=== PATIENT | male | born 1940 | race American Indian/Alaskan Native ===

== ENCOUNTER 2016-07-24 19:12 | Inpatient (IN) | payer MEDICARE, BC ==
[2016-07-24 19:13] VITALS: BMI 21.7
--- NOTE | 2016-07-24 20:19 | ED PDOC ---
Arrival/HPI - General Time Seen by Provider: 07/24/16 19:27 Historian: Patient - History of Present Illness Narrative History of Present Illness (Text): 07/24/16 19:40 A 75 year old male, whose past medical history includes diabetes, hypertension, hyperlipidemia, ESRD, Renal cancer with prtial nephrectomy, presents to the emergency department complaining of feeling weak and hot since earlier today. Patient denies any headache, neck pain, back pain, chest pain, shortness of breath, history of recent cough, abdominal pain, or any other complaints at this time. Patient does mention he is scheduled for hemodialysis tomorrow. PMD: Dr. Brambila Time/Duration: 4-6 hours Symptom Onset: Sudden Symptom Course: Unchanged Quality: Other Activities at Onset: Rest Context: Home Past Medical History - Provider Review Nursing Documentation Reviewed: Yes - Infectious Disease Hx of Infectious Diseases: None - Tetanus Immunization Tetanus Immunization: Unknown - Cardiac Hx Cardiac Disorders: Yes Hx Hypertension: Yes - Pulmonary Hx Respiratory Disorders: No Hx Chronic Obstructive Pulmonary Disease (COPD): No - Neurological Hx Neurological Disorder: No Hx Alzheimer's Disease: No HX Cerebrovascular Accident: No Hx Dementia: No Hx Dizziness: No Hx Meningitis: No Hx Migraine: No Hx Parkinson's Disease: No Hx Seizures: No Hx Transient Ischemic Attacks (TIA): No - HEENT Hx HEENT Disorder: No (WEARS RX GLASSES) Hx Blind: No Hx Cataracts: No Hx Deafness: No Hx Difficulty Chewing: No Hx Epistaxis: No Hx Glaucoma: No Hx Macular Degeneration: No - Renal Hx Renal Disorder: Yes Date of Last Dialysis Treatment: 02/19/16 Hx Renal Failure: Yes (HD (//Sun)) - Endocrine/Metabolic Hx Endocrine Disorders: Yes Hx Diabetes Mellitus Type 1: No Hx Diabetes Mellitus Type 2: Yes Hx Hypothyroidism: No - Hematological/Oncological Hx Blood Disorders: Yes - Integumentary Hx Dermatological Disorder: Yes (Bullous pemphigoid) Hx Basal Cell Carcinoma: No Hx Eczema: No Hx Melanoma: No Hx Psoriasis: No Hx Squamous Cell Carcinoma: No - Musculoskeletal/Rheumatological Hx Musculoskeletal Disorders: No Hx Falls: No - Gastrointestinal Hx Gastrointestinal Disorders: No Hx Colostomy: No Hx Crohn's Disease: No Hx Diverticulitis: No Hx Gall Bladder Disease: No Hx Gastroesophageal Reflux: No Hx Gastrointestinal Ulcer: No Hx Ileostomy: No Hx Liver Failure: No Hx Pancreatitis: No HX Swallowing Problems: No - Genitourinary/Gynecological Hx Genitourinary Disorders: No - Psychiatric Hx Psychophysiologic Disorder: No Hx Emotional Abuse: No Hx Physical Abuse: No Hx Substance Use: No - Surgical History Hx Amputation: No Hx Appendectomy: No Hx Cardiac Catheterization: No Hx Cholecystectomy: No Hx Coronary Stent: No Hx Gastric Bypass Surgery: No Hx Hysterectomy: No Hx Joint Replacement: No Hx Kidney Transplant: No Hx Liver Transplant: No Hx Mastectomy: No Hx Musculoskeletal Surgery: No Hx Open Heart Surgery: No Hx Orthopedic Surgery: No Hx Splenectomy: No Hx Valve Replacement: No - Anesthesia Hx Anesthesia Reactions: No Hx Malignant Hyperthermia: No - Suicidal Assessment Feels Threatened In Home Enviroment: No Family/Social History - Physician Review Nursing Documentation Reviewed: Yes Family/Social History: No Known Family HX Smoking Status: Never Smoked Hx Alcohol Use: No (H/O OF DRINKING WEEKENDS BEER-"NONE X 20 YRS") Hx Substance Use: No Hx Substance Use Treatment: No Allergies/Home Meds Allergies/Adverse Reactions: Allergies No Known Allergies Allergy (Verified 07/24/16 21:08) Home Medications: Home Meds Medication Instructions Recorded Confirmed Amlodipine/Valsartan [Exforge 1 tab PO DAILY 09/17/11 05/25/16 10-320 mg Tablet] Aspirin [Ecotrin] 325 mg PO DAILY 08/25/15 05/25/16 Gabapentin [Neurontin] 100 mg PO Q8 08/25/15 05/25/16 Pentoxifylline 400 mg PO Q8 08/25/15 05/25/16 Pregabalin [Lyrica] 50 mg PO BID 08/25/15 05/25/16 Omeprazole [Omeprazole] 20 mg PO DAILY 02/19/16 05/25/16 Review of Systems - Physician Review All systems were reviewed & negative as marked: Yes - Review of Systems Constitutional: Fatigue, Other (feeling hot) Eyes: Normal ENT: Normal Respiratory: absent: SOB, Cough Cardiovascular: absent: Chest Pain Gastrointestinal: absent: Abdominal Pain Genitourinary Male: Normal Musculoskeletal: absent: Back Pain, Neck Pain Skin: Normal Neurological: absent: Headache Endocrine: Normal Hemo/Lymphatic: Normal Psychiatric: Normal Physical Exam Vital Signs Reviewed: Yes Vital Signs Temp Pulse Resp BP Pulse Ox 07/25/16 00:59 98.6 F 64 15 138/54 L 100 07/24/16 21:18 65 16 125/54 L 99 07/24/16 21:07 102.9 F H 07/24/16 19:40 102.0 F H 66 16 131/57 L 95 Temperature: Febrile Blood Pressure: Hypotensive Pulse: Regular Respiratory Rate: Normal Appearance: Positive for: Well-Appearing, Non-Toxic, Comfortable Pain Distress: None Mental Status: Positive for: Alert and Oriented X 3 - Systems Exam Head: Present: Atraumatic, Normocephalic Pupils: Present: PERRL Extroacular Muscles: Present: EOMI Conjunctiva: Present: Normal Mouth: Present: Moist Mucous Membranes Neck: Present: Normal Range of Motion Respiratory/Chest: Present: Clear to Auscultation, Good Air Exchange. No: Respiratory Distress, Accessory Muscle Use Cardiovascular: Present: Regular Rate and Rhythm, Normal S1, S2. No: Murmurs Abdomen: Present: Normal Bowel Sounds. No: Tenderness, Distention, Peritoneal Signs Back: Present: Normal Inspection Upper Extremity: Present: Normal Inspection. No: Cyanosis, Edema Lower Extremity: Present: Normal Inspection. No: Edema Neurological: Present: GCS=15, CN II-XII Intact, Speech Normal Skin: Present: Warm, Dry, Normal Color. No: Rashes Psychiatric: Present: Alert, Oriented x 3, Normal Insight, Normal Concentration Medical Decision Making ED Course and Treatment: 07/24/16 19:40 Impression: A 75 year old male with weakness and a subjective fever. Differential Diagnosis include but are not limited to: Sepsis Plan: -- EKG -- Chest X-ray -- Labs -- Urinalysis -- Reassess and disposition Prior Visits: Notes and results from previous visits were reviewed. The patient last presented to the emergency department on 05/25/16 for evaluation of generalized weakness. Progress Notes: 07/24/16 23:03 Chest X-ray interpreted by me: No acute processes. 07/24/16 23:07 EKG interpreted by me: NSR @ 66 bpm. No acute changes. 07/24/16 23:17 Case discussed with who accepts patient under his service with and Dr. Tavera on consult. Advises to administer dose of Vancomycin and Rocephin in emergency department. - Lab Interpretations Lab Results: 07/24/16 20:30 07/24/16 20:30 Lab Results 07/24/16 20:39: pO2 36, VBG pH 7.26 L, VBG pCO2 67.0 H*, VBG HCO3 30.1 H, VBG Total CO2 32.2 H, VBG O2 Sat (Calc) 60.0, VBG Base Excess 1.2, VBG Potassium 5.2 , Sodium 138.0, Chloride 99.0, Glucose 108, Lactate 2.0, FiO2 21.0, Venous Blood Potassium 5.2 07/24/16 20:30: WBC 5.8 D, RBC 4.28, Hgb 13.1 L, Hct 38.9 L, MCV 90.9, MCH 30.6 , MCHC 33.7, RDW 14.6 H, Plt Count 113 L, Gran % 83.4 H, Lymph % (Auto) 6.4 L, [place] % (Auto) 8.5 H, Eos % (Auto) 1.4 L, Baso % (Auto) 0.3, Gran # 4.83, Lymph # 0.4 L, [place] # 0.5, Eos # 0.1, Baso # 0.02, PT 12.5 H, INR 1.16 H, APTT 39.8 H , Sodium 139, Chloride 94 L, Potassium 5.1 H, Carbon Dioxide 26, Anion Gap 24 H , BUN 70 H, Creatinine 8.7 H*, Est GFR ( Amer) 7, Est GFR (Non-Af Amer) 6 , Random Glucose 109, Calcium 8.3 L, Phosphorus 8.5 H, Magnesium 2.7 H, Total Bilirubin 0.7, AST 22, ALT 18, Alkaline Phosphatase 90, Total Protein 9.3 H, Albumin 4.3, Globulin 4.9, Albumin/Globulin Ratio 0.9 L I have reviewed the lab results: Yes - RAD Interpretation Radiology Orders: 07/24/16 20:05 CHEST PORTABLE [RAD] Stat - Medication Orders Current Medication Orders: Meropenem 500 mg/ Sodium (Chloride) 100 mls @ 100 mls/hr IVPB Q12 [place] PRN Reason: Protocol Stop: 08/01/16 10:01 Vancomycin HCl (Vancomycin 1gm) 250 mls @ 167 mls/hr IVPB STAT STA PRN Reason: Protocol Stop: 07/25/16 07:21 Discontinued Medications Acetaminophen (Tylenol 325mg Tab) 650 mg PO STAT STA Stop: 07/24/16 20:08 Last Admin: 07/24/16 21:07 Dose: 650 MG MAR Pain/Vitals Document 07/24/16 21:07 HI (Rec: 07/24/16 21:07 HI [id number]) Pain Reassessment Is This A Pain ReAssessment? No Vitals Temperature (97.6 F-99.6 F) 102.9 F Ceftriaxone Sodium (Rocephin 1 Gram Ivpb) 100 mls @ 200 mls/hr IV ONCE STA PRN Reason: Protocol Stop: 07/24/16 23:48 Last Admin: 07/25/16 00:48 Dose: 200 MLS/HR eMAR Start Stop Document 07/25/16 00:48 MAURICIO (Rec: 07/25/16 00:48 [id number]) Intravenous Solution Start Date 07/25/16 Start Time 00:20 End Date 07/25/16 End time 00:48 Total Infusion Time 28 Vancomycin HCl (Vancomycin 500mg In Ns) 100 mls @ 200 mls/hr IVPB STAT STA PRN Reason: Protocol Stop: 07/24/16 23:51 Last Admin: 07/25/16 00:48 Dose: 200 MLS/HR eMAR Start Stop Document 07/25/16 00:48 MAURICIO (Rec: 07/25/16 00:48 [facility]ICIO [id number]) Intravenous Solution Start Date 07/25/16 Start Time 00:48 - Scribe Statement The provider has reviewed the documentation as recorded by the Seraibjitendra Bernstein Provider Scribe Attestation: All medical record entries made by the Scribe were at my direction and personally dictated by me. I have reviewed the chart and agree that the record accurately reflects my personal performance of the history, physical exam, medical decision making, and the department course for this patient. I have also personally directed, reviewed, and agree with the discharge instructions and disposition. Disposition/Present on Arrival - Present on Arrival Any Indicators Present on Arrival: No History of DVT/PE: No History of Uncontrolled Diabetes: Yes Urinary Catheter: No History of Decub. Ulcer: No History Surgical Site Infection Following: None - Disposition Have Diagnosis and Disposition been Completed?: Yes Diagnosis: SIRS (systemic inflammatory response syndrome), ESRD (end stage renal disease) on dialysis Disposition: HOSPITALIZED Disposition Time: 23:19 Patient Plan: Observation Patient Problems: Current Active Problems Problem Status Diagnosed Blurred vision Acute ESRD (end stage renal disease) on dialysis Acute Knee pain, left Acute SIRS (systemic inflammatory response syndrome) Acute Weakness of limb Acute Condition: GOOD
[2016-07-24 20:42] LABS: ADD MANUAL DIFF? NO
[2016-07-24 20:46] LABS: VENOUS BLOOD GAS BASE EXCESS 1.2 mmol/L (0.0-2.0); VENOUS BLOOD PH 7.26 (7.32-7.43)
[2016-07-24 20:50] LABS: BASO # 0.02 K/mm3 (0.0-2.0); BASO % 0.3 % (0.0-3.0); EOS # 0.1 (0.0-0.7); EOS % 1.4 % (1.5-5.0); GRAN # 4.83 (1.4-6.5); GRAN % 83.4 % (50.0-68.0); HEMATOCRIT 38.9 % (42.0-52.0); LYMPH # 0.4 (1.2-3.4); LYMPH % 6.4 % (22.0-35.0); MEAN CELL VOLUME 90.9 fL (80.0-105.0); MEAN CORPUSCULAR HEMOGLOBIN 30.6 pg (25.0-35.0); MEAN CORPUSCULAR HGB CONC 33.7 g/dl (31.0-37.0); MONO # 0.5 (0.1-0.6); MONO % 8.5 % (1.0-6.0); RED CELL DISTRIBUTION WIDTH 14.6 % (11.5-14.5); WHITE BLOOD COUNT 5.8 10^3/ul (4.5-11.0)
[2016-07-24 20:58] LABS: INR 1.16 (0.93-1.08); PARTIAL THROMBOPLASTIN TIME 39.8 Seconds (23.7-30.8)
[2016-07-24 21:04] LABS: PLATELET COUNT 113 10^3/uL (120.0-450.0)
[2016-07-24 21:07] LABS: ALB/GLOB RATIO 0.9 (1.1-1.8); BILIRUBIN,TOTAL 0.7 mg/dL (0.2-1.3); CALCIUM 8.3 mg/dL (8.4-10.5); MAGNESIUM 2.7 mg/dL (1.7-2.2); PHOSPHOROUS 8.5 mg/dL (2.5-4.5); POTASSIUM 5.1 mmol/L (3.6-5.0); TOTAL PROTEIN 9.3 g/dL (5.8-8.3)
[2016-07-24] MEDS ORDERED: Vancomycin 500mg in NS 100 ML IVPB STA (23:22)
[2016-07-25] MEDS: cefTRIAXone 1 gm 100 ML IV STA ×2 (00:20→00:48)
[2016-07-25] MEDS ORDERED: Vancomycin 1gm in NS 250ml 250 ML IVPB STA (05:52)
[2016-07-25] MEDS: Insulin Reg-LOW-Coverage SC SCH ×3 (08:00→21:54)
--- NOTE | 2016-07-25 08:01 | RAD ---
HISTORY: Sepsis Patient COMPARISON: 05/25/2016 FINDINGS: LUNGS: Again seen are calcified granulomas in both upper lobes, more numerous on the left. There is no focal consolidation. PLEURA: No significant pleural effusion identified, no pneumothorax apparent. CARDIOVASCULAR: The heart is normal in size. Atherosclerotic aortic arch calcifications are present. . There is unfolding of the aorta with OSSEOUS STRUCTURES: No significant abnormalities. VISUALIZED UPPER ABDOMEN: Normal. OTHER FINDINGS: None. IMPRESSION: No active pulmonary disease.
[2016-07-25 08:20] LABS: ADD MANUAL DIFF? NO
[2016-07-25 08:24] LABS: BASO # 0.02 K/mm3 (0.0-2.0); BASO % 0.4 % (0.0-3.0); EOS % 0.7 % (1.5-5.0); GRAN # 3.52 (1.4-6.5); GRAN % 76.9 % (50.0-68.0); LYMPH # 0.7 (1.2-3.4); LYMPH % 15.7 % (22.0-35.0); MEAN CELL VOLUME 90.2 fL (80.0-105.0); MEAN CORPUSCULAR HEMOGLOBIN 30.2 pg (25.0-35.0); MEAN CORPUSCULAR HGB CONC 33.5 g/dl (31.0-37.0); MONO # 0.3 (0.1-0.6); MONO % 6.3 % (1.0-6.0); PLATELET COUNT 86 10^3/uL (120.0-450.0); RED CELL DISTRIBUTION WIDTH 14.6 % (11.5-14.5); WHITE BLOOD COUNT 4.6 10^3/ul (4.5-11.0)
[2016-07-25 08:34] LABS: ALB/GLOB RATIO 0.9 (1.1-1.8); BILIRUBIN,TOTAL 0.5 mg/dL (0.2-1.3); CALCIUM 8.2 mg/dL (8.4-10.5); MAGNESIUM 2.7 mg/dL (1.7-2.2); PHOSPHOROUS 8.6 mg/dL (2.5-4.5); TOTAL PROTEIN 8.5 g/dL (5.8-8.3)
[2016-07-25] MEDS: Meropenem 500 MG in Sodium Chloride 0.9% 100 ML IVPB SCH (09:30)
[2016-07-25 09:34] LABS: ERYTHROCYTE SEDIMENTATION RATE 17 mm/hr (0.00-15.0)
--- NOTE | 2016-07-25 12:06 | CARD ---
APPROVED REPORT EKG Measurement Heart [id number] <Conclusion> Normal sinus rhythm Normal ECG
[2016-07-25] MEDS ORDERED: Barium Sulfate Susp 2.1% w/v, 2.0% w/w 450 mL Bottle PO ONE (12:10)
--- NOTE | 2016-07-25 14:39 | CP.PCM.CON ---
History of Present Illness - History of Present Illness History of Present Illness: 75 year old male with PMH of HTN, DM, dyslipidemia, ESRD on HD, renal cancer S/ P partial nephrectomy was brought in to [facility] because the patient was noted to be weak and lethargic. In the ED, the patient was also noted to have fever. the patient denies headache or dizziness, has occasional cough but no sputum production, no sore throat, no rhinorrhea, no chest pain, no SOB, no abdominal pain, no diarrhea, no dysuria. Infectious Diseases consult is requested to further evaluate and manage. Review of Systems - Review of Systems All systems: reviewed and no additional remarkable complaints except (as per HPI ) Past Patient History - Infectious Disease Hx of Infectious Diseases: None - Tetanus Immunizations Tetanus Immunization: Unknown - Past Medical History & Family History Past Medical History?: Yes Past Family History: Reviewed and not pertinent - Past Social History Smoking Status: Never Smoked Alcohol: None Drugs: Denies Home Situation {Lives}: With Family - CARDIAC Hx Cardiac Disorders: Yes Hx Hypertension: Yes - PULMONARY Hx Respiratory Disorders: No Hx Chronic Obstructive Pulmonary Disease (COPD): No - NEUROLOGICAL Hx Neurological Disorder: No Hx Alzheimer's Disease: No HX Cerebrovascular Accident: No Hx Dementia: No Hx Dizziness: No Hx Meningitis: No Hx Migraine: No Hx Parkinson's Disease: No Hx Seizures: No Hx Transient Ischemic Attacks (TIA): No - HEENT Hx HEENT Problems: No (WEARS RX GLASSES) Hx Blind: No Hx Cataracts: No Hx Deafness: No Hx Difficulty Chewing: No Hx Epistaxis: No Hx Glaucoma: No Hx Macular Degeneration: No - RENAL Hx Chronic Kidney Disease: Yes Hx Renal Failure: Yes (HD (//Sun)) - ENDOCRINE/METABOLIC Hx Endocrine Disorders: Yes Hx Diabetes Mellitus Type 1: No Hx Diabetes Mellitus Type 2: Yes Hx Hypothyroidism: No - HEMATOLOGICAL/ONCOLOGICAL Hx Blood Disorders: Yes - INTEGUMENTARY Hx Dermatological Problems: Yes (Bullous pemphigoid) Hx Basil Cell: No Hx Eczema: No Hx Melanoma: No Hx Psoriasis: No Hx Squamous Cell: No - MUSCULOSKELETAL/RHEUMATOLOGICAL Hx Musculoskeletal Disorders: No Hx Falls: Yes - GASTROINTESTINAL Hx Gastrointestinal Disorders: No Hx Colostomy: No Hx Crohn's Disease: No Hx Diverticulitis: No Hx Gall Bladder Disease: No Hx Gastroesophageal Reflux: No Hx Ileostomy: No Hx Liver Failure: No Hx Pancreatitis: No HX Swallowing Problems: No - GENITOURINARY/GYNECOLOGICAL Hx Genitourinary Disorders: No - PSYCHIATRIC Hx Psychophysiologic Disorder: No Hx Emotional Abuse: No Hx Physical Abuse: No - SURGICAL HISTORY Hx Amputation: No Hx Appendectomy: No Hx Cardiac Catheterization: No Hx Cholecystectomy: No Hx Coronary Stent: No Hx Gastric Bypass Surgery: No Hx Hysterectomy: No Hx Joint Replacement: No Hx Kidney Transplant: No Hx Liver Transplant: No Hx Mastectomy: No Hx Musculoskeletal Surgery: No Hx Open Heart Surgery: No Hx Orthopedic Surgery: No Hx Splenectomy: No Hx Valve Replacement: No - ANESTHESIA Hx Anesthesia Reactions: No Hx Malignant Hyperthermia: No Meds Allergies/Adverse Reactions: Allergies Allergy/AdvReac Type Severity Reaction Status Date / Time No Known Allergies Allergy Verified 07/24/16 21:08 Physical Exam - Constitutional Appears: Non-toxic, No Acute Distress - Head Exam Head Exam: NORMAL INSPECTION - ENT Exam ENT Exam: Mucous Membranes Moist - Neck Exam Neck exam: Negative for: Lymphadenopathy, Meningismus - Respiratory Exam Respiratory Exam: Decreased Breath Sounds - Cardiovascular Exam Cardiovascular Exam: +S1, +S2 - GI/Abdominal Exam GI & Abdominal Exam: Soft. absent: Tenderness Results - Vital Signs Recent Vital Signs: Last Vital Signs Temp 98.2 F 07/25/16 02:32 Pulse 60 07/25/16 02:32 Resp 20 07/25/16 02:32 BP 166/68 H 07/25/16 02:32 Pulse Ox 100 07/25/16 00:59 - Labs Result Diagrams: 07/25/16 08:00 07/25/16 08:00 Assessment & Plan - Assessment and Plan (Free Text) Plan: Assessment Systemic Inflammatory Response Syndrome (fever and tachypnea), R/O sepsis, source to be determined HTN DM dyslipidemia ESRD on HD renal cancer S/P partial nephrectomy Plan Gave one dose of IV Vancomycin and started renally-adjusted Meropenem pending blood, urine cx, PCT; CXR still shows the upper lobe calcified granulomas ( unchanged from previous admission) but no focal consolidation or infiltrate Will monitor clinically
[2016-07-25] MEDS: Aspirin 325 mg EC Tablets PO SCH (15:18)
--- NOTE | 2016-07-25 20:09 | CON ---
DATE: 07/25/2016 Seen and examined in dialysis unit . The chart was reviewed. REQUEST FOR CONSULT: Abdominal pain and constipation. HISTORY OF PRESENT ILLNESS: This is a 75-year-old male with a past medical history of end-stage clovis l disease on hemodialysis, renal carcinoma with partial nephrectomy, comes to the Emergency Room with complaints of feeling weak and hot. The patient was found to have a fever of 102. He was brought t o the Emergency Room by his daughter. The patient does not complain of any abdominal pain. He does report that he does get constipated. He states that his last bowel movement was about a week ago. D enies any overt GI bleed. No nausea, vomiting, or complaints of shortness of breath or chest pain. He did have an influenza rapid test which turned out to be negative. PAST MEDICAL HISTORY: Diabetes mellitus, renal cancer with partial nephrectomy, hypertension, end-st age renal disease on dialysis, gastric polyp, grade I varices, superficial gastric ulcers. His last endoscopy was 06/2015. The patient was also recently discharged back in April from [facility] for confusi on and leg weakness. Also, includes a history of syphilis, chronic left foot drop. The patient has chronic hepatitis C. PAST SURGICAL HISTORY: Partial nephrectomy, left AV fistula. ALLERGIES: No known drug allergies. FAMILY HISTORY: Noncontributory at this time. SOCIAL HISTORY: He denies EtOH, substance abuse or smoking. MEDICATIONS: Reviewed as per MAR. REVIEW OF SYSTEMS: Systems reviewed with positive findings, see HPI. VITAL SIGNS: Temperature is 98.1, blood pressure 143/67. The patient is noted to have had a fever o f 101.1 at 7:30 this morning. Respirations 19. LABORATORY WORK: WBC 4.6, H and H is 12.4 and 37.0, platelet is 86. PT is 12.5, INR is 1.16, PTT is 39.8, this is from 07/24. His sodium is 141, potassium is 5.0, BUN 78, the creatinine is 9.5. The patient is getting dialysis today. His mag is 2.7, phosphorus is 8.6. LFTs are within normal limits . C-reactive protein is greater than 15.0. He had a chest x-ray done yesterday on admission and it shows calcified granulomas in both upper lobes, more numerous on the left. No focal consolidation. No pleural effusion or pneumothorax. PHYSICAL EXAMINATION: HEENT: Sclerae are anicteric. NECK: Supple. CARDIAC: S1, S2. LUNGS: Decreased breath sounds, but good air entry. No rales or wheeze. NECK: No lymphadenopathy. CARDIAC: S1, S2. ABDOMEN: With bowel sounds. It is soft, does not appear distended and no tenderness was appreciated on palpation. EXTREMITIES: No edema noted. NEUROLOGIC: The patient is awake and alert and oriented. ASSESSMENT: This is a 75-year-old male with history of end-stage renal disease on dialysis, renal ca rcinoma status post partial nephrectomy, chronic hepatitis B and hypertension, came to the Emergency Room with complaints of weakness and fever. The patient was found to have a high fever of 102. The patient also having constipation. The patient also has a history of gastric polyps, grade I varices, diabetes mellitus. PLAN: The patient is pending CT scan of abdomen and pelvis with oral contrast to rule out any abdomi nal pathology. He currently is not having any abdominal pain. He is also on a bowel regimen. He casanova s been started on Colace b.i.d. We can add some MiraLax daily. The patient has been seen by ID and is started on IV antibiotics, meropenem. He was given a dose of vancomycin yesterday. Continue GI p rophylaxis on 20 mg of Protonix. He is on aspirin. We will request a hepatitis B, DNA. He is pendi ng urine culture and blood culture, results are pending. He is being followed by ID and renal. Thank you for this consult and for allowing us to participate in your patient's care. We will make isaura stark recommendations based upon patient's clinical course. The patient was seen and case discussed with Dr. Huber. Chanel BURNS cc: [id number] TT: 07/25/2016 20:08:14 Confirmation # [id number] Dictation # [id number] [email or web address]
--- NOTE | 2016-07-25 20:15 | CP.PCM.CON ---
History of Present Illness - History of Present Illness History of Present Illness: 75 yo M w/ pmh of htn, dm, ESRD on HD (TTS), hep B (untreated), brought to ED by daughter after reportedly being lethargic, although patient gives chief complain of abdominal pain; Patient cannot recall when abd pain started; located on L side, currently improved, not associated with nausea/vomiting or diarrhea; reportedly tolerating diet well; Patient on HD since past 3-4 yrs at [facility] [place], [place] on [address], dialysed via L arm AVF; denies missing any HD sessions; doesn't know his dry weight or goal UF target Review of Systems - Constitutional Constitutional: As Per HPI, Fever. absent: Chills - EENT Eyes: absent: Blurred Vision, Change in Vision Nose/Mouth/Throat: absent: Sinus Pain, Sore Throat Additional comments: no URI symptoms - Cardiovascular Cardiovascular: Dyspnea on Exertion. absent: Leg Edema Additional comments: short of breath after walking a couple of blocks - Respiratory Respiratory: absent: Dyspnea Additional comments: no orthopnea - Gastrointestinal Gastrointestinal: As Per HPI - Genitourinary Genitourinary: absent: Dysuria, Hematuria Additional comments: Urinates about 1/2 cup a day - Musculoskeletal Musculoskeletal: absent: Arthralgias - Integumentary Integumentary: absent: Pruritus, Rash - Neurological Neurological: absent: Dizziness, Headaches - Psychiatric Psychiatric: absent: Anxiety, Depression - Hematologic/Lymphatic Hematologic: absent: Easy Bleeding, Easy Bruising Past Patient History - Infectious Disease Hx of Infectious Diseases: None - Tetanus Immunizations Tetanus Immunization: Unknown - Past Medical History & Family History Past Medical History?: Yes - Past Social History Smoking Status: Former Smoker Alcohol: None Drugs: Denies Home Situation {Lives}: With Family - CARDIAC Hx Cardiac Disorders: Yes Hx Hypertension: Yes - PULMONARY Hx Respiratory Disorders: No Hx Chronic Obstructive Pulmonary Disease (COPD): No - NEUROLOGICAL Hx Neurological Disorder: No Hx Alzheimer's Disease: No HX Cerebrovascular Accident: No Hx Dementia: No Hx Dizziness: No Hx Meningitis: No Hx Migraine: No Hx Parkinson's Disease: No Hx Seizures: No Hx Transient Ischemic Attacks (TIA): No - HEENT Hx HEENT Problems: No (WEARS RX GLASSES) Hx Blind: No Hx Cataracts: No Hx Deafness: No Hx Difficulty Chewing: No Hx Epistaxis: No Hx Glaucoma: No Hx Macular Degeneration: No - RENAL Hx Chronic Kidney Disease: Yes Hx Renal Failure: Yes (HD (T//Sun)) - ENDOCRINE/METABOLIC Hx Endocrine Disorders: Yes Hx Diabetes Mellitus Type 1: No Hx Diabetes Mellitus Type 2: Yes Hx Hypothyroidism: No - HEMATOLOGICAL/ONCOLOGICAL Hx Blood Disorders: Yes - INTEGUMENTARY Hx Dermatological Problems: Yes (Bullous pemphigoid) Hx Basil Cell: No Hx Eczema: No Hx Melanoma: No Hx Psoriasis: No Hx Squamous Cell: No - MUSCULOSKELETAL/RHEUMATOLOGICAL Hx Musculoskeletal Disorders: No Hx Falls: Yes - GASTROINTESTINAL Hx Gastrointestinal Disorders: No Hx Colostomy: No Hx Crohn's Disease: No Hx Diverticulitis: No Hx Gall Bladder Disease: No Hx Gastroesophageal Reflux: No Hx Ileostomy: No Hx Liver Failure: No Hx Pancreatitis: No HX Swallowing Problems: No - GENITOURINARY/GYNECOLOGICAL Hx Genitourinary Disorders: No - PSYCHIATRIC Hx Psychophysiologic Disorder: No Hx Emotional Abuse: No Hx Physical Abuse: No - SURGICAL HISTORY Hx Amputation: No Hx Appendectomy: No Hx Cardiac Catheterization: No Hx Cholecystectomy: No Hx Coronary Stent: No Hx Gastric Bypass Surgery: No Hx Hysterectomy: No Hx Joint Replacement: No Hx Kidney Transplant: No Hx Liver Transplant: No Hx Mastectomy: No Hx Musculoskeletal Surgery: No Hx Open Heart Surgery: No Hx Orthopedic Surgery: No Hx Splenectomy: No Hx Valve Replacement: No - ANESTHESIA Hx Anesthesia Reactions: No Hx Malignant Hyperthermia: No Meds Allergies/Adverse Reactions: Allergies Allergy/AdvReac Type Severity Reaction Status Date / Time No Known Allergies Allergy Verified 07/24/16 21:08 - Medications Medications: Current Medications Acetaminophen (Tylenol 325mg Tab) 650 mg PO Q6H PRN PRN Reason: Fever >100.4 F Last Admin: 07/25/16 15:16 Dose: 650 mg Amlodipine Besylate (Norvasc) 10 mg PO DAILY [facility] Last Admin: 07/25/16 15:17 Dose: 10 mg Aspirin (Ecotrin) 325 mg PO DAILY [facility] Last Admin: 07/25/16 15:18 Dose: 325 mg Docusate Sodium (Colace) 100 mg PO BID [facility] Donepezil HCl (Aricept) 10 mg PO HS [facility] Gabapentin (Neurontin) 100 mg PO Q8 [facility] PRN Reason: Protocol Last Admin: 07/25/16 15:17 Dose: 100 mg Heparin Sodium (Porcine) (Heparin) 5,000 units SC Q12 [facility] PRN Reason: Protocol Last Admin: 07/25/16 10:00 Dose: Not Given Meropenem 500 mg/ Sodium (Chloride) 100 mls @ 100 mls/hr IVPB Q24H [facility] PRN Reason: Protocol Stop: 08/01/16 10:01 Last Admin: 07/25/16 09:30 Dose: 100 mls/hr Insulin Human Regular (Humulin R Low) 0 units SC ACHS [facility] PRN Reason: Protocol Last Admin: 07/25/16 19:08 Dose: Not Given Pantoprazole Sodium (Protonix Ec Tab) 20 mg PO 0730 [facility] Pentoxifylline (Pentoxil) 400 mg PO Q8 [facility] Last Admin: 07/25/16 15:17 Dose: 400 mg Pregabalin (Lyrica) 50 mg PO BID [facility] Last Admin: 07/25/16 19:09 Dose: Not Given Valsartan (Diovan) 320 mg PO DAILY [facility] Last Admin: 07/25/16 19:07 Dose: Not Given Physical Exam - Constitutional Appears: Well, No Acute Distress - Head Exam Head Exam: NORMAL INSPECTION - Eye Exam Eye Exam: Normal appearance. absent: Conjunctival injection, Scleral icterus Pupil Exam: absent: Unequal - ENT Exam ENT Exam: Mucous Membranes Moist - Neck Exam Neck exam: Positive for: Normal Inspection - Respiratory Exam Respiratory Exam: Clear to Auscultation Bilateral, NORMAL BREATHING PATTERN - Cardiovascular Exam Cardiovascular Exam: REGULAR RHYTHM, +S1, +S2 - GI/Abdominal Exam GI & Abdominal Exam: Hyperactive Bowel Sounds, Soft Additional comments: Mild left sided tenderness - Extremities Exam Additional comments: L ankle mildly edematous - Psychiatric Exam Psychiatric exam: Normal Affect, Normal Mood Results - Vital Signs Recent Vital Signs: Last Vital Signs Temp 100.5 F H 07/25/16 18:00 Pulse 69 07/25/16 16:00 Resp 18 07/25/16 16:00 BP 116/62 07/25/16 16:00 Pulse Ox 97 07/25/16 16:00 - Labs Result Diagrams: 07/25/16 08:00 07/25/16 08:00 - Imaging and Cardiology Chest x-ray Status: Image reviewed by me (No pulmonary vascular congestion) Assessment & Plan (1) ESRD (end stage renal disease) on dialysis Assessment and Plan: Stable electrolyte and volume status; dialyzed today, next HD for ; Status: Acute (2) SIRS (systemic inflammatory response syndrome) Assessment and Plan: Continues to have fevers; on vanco and meropenem; no source of infection thus far; need to re-dose both vanco and meropenem after HD (500 mg for both) as they are readily dialyzable; Status: Acute (3) Anemia Assessment and Plan: Hgb at goal for ESRD; monitor, no need for EPO; Status: Acute (4) Diabetes mellitus Assessment and Plan: Sugars controlled, monitor for hypoglycemia in ESRD; Status: Chronic (5) Hyperphosphatemia Assessment and Plan: Phos markedly elevated, unclear if patient adhering to binders, will restart; Status: Acute (6) HTN (hypertension) Assessment and Plan: Controlled; on amlodipine, continue; can restart valsartan when afebrile and SIRS resolved; Status: Acute
[2016-07-26 06:44] LABS: ADD MANUAL DIFF? NO
[2016-07-26 07:06] LABS: ALB/GLOB RATIO 0.8 (1.1-1.8); BILIRUBIN,TOTAL 0.7 mg/dL (0.2-1.3); CALCIUM 8.4 mg/dL (8.4-10.5); MAGNESIUM 2.4 mg/dL (1.7-2.2); PHOSPHOROUS 7.7 mg/dL (2.5-4.5); POTASSIUM 4.7 mmol/L (3.6-5.0); TOTAL PROTEIN 8.4 g/dL (5.8-8.3)
[2016-07-26 07:10] LABS: BASO # 0.02 K/mm3 (0.0-2.0); BASO % 0.4 % (0.0-3.0); EOS % 0.6 % (1.5-5.0); GRAN % 68.7 % (50.0-68.0); HEMATOCRIT 36.9 % (42.0-52.0); LYMPH # 0.9 (1.2-3.4); LYMPH % 19.1 % (22.0-35.0); MEAN CELL VOLUME 90.4 fL (80.0-105.0); MEAN CORPUSCULAR HEMOGLOBIN 29.7 pg (25.0-35.0); MEAN CORPUSCULAR HGB CONC 32.8 g/dl (31.0-37.0); MONO # 0.5 (0.1-0.6); MONO % 11.2 % (1.0-6.0); PLATELET COUNT 87 10^3/uL (120.0-450.0); RED CELL DISTRIBUTION WIDTH 14.6 % (11.5-14.5); WHITE BLOOD COUNT 4.8 10^3/ul (4.5-11.0)
--- NOTE | 2016-07-26 07:18 | CON ---
DATE: 07/25/2016 This is an addendum to the GI consultation report dictated by Chanel Schulz NP. This 75-year-old patient with a past medical history of end-stage renal disease , on hemodialysis; renal cell carcinoma, status post partial nephrectomy; chronic hepatitis B, patient was on reduced weekly dose of Viread 300 mg daily; diabetes mellitus, gastroparesis, presented to the Emergency Room with weakness and he was found to have a fever of 102. The patient denies any abdominal pain. Has history of chronic constipation. No vomiting. PHYSICAL EXAMINATION: This patient was seen and evaluated in the dialysis unit where he was undergoing dialysis. He denied any abdominal pain at that time. Abdominal exam did not reveal any tenderness. The patient had elevated temp. No focal obvious signs noticed. No obvious source was noticed. The patient is started empirically on antibiotics by ID. Requested CT of the abdomen and pelvis which is said to be done; will follow up. We also request for hepatitis B DNA viral load. Also request for hepatitis B serology. Thank you very much for allowing us to participate in the care of the patient. Liss Huber MD cc: [id number] TT: 07/26/2016 07:17:32 Confirmation # [id number] Dictation # [id number] berkley HANSEN
[2016-07-26] MEDS: Insulin Reg-LOW-Coverage SC SCH ×3 (08:12→16:19)
[2016-07-26] MEDS: Pantoprazole 20 mg EC Tab PO SCH (09:14)
[2016-07-26] MEDS: Meropenem 500 MG in Sodium Chloride 0.9% 100 ML IVPB SCH (09:16)
[2016-07-26] MEDS: Aspirin 325 mg EC Tablets PO SCH (09:19)
[2016-07-26] MEDS ORDERED: cefTRIAXone 1 gm 100 ML IVPB SCH (10:00)
--- NOTE | 2016-07-26 10:02 | HP ---
History and physical done for 07/25/2016. The patient came to the hospital because of feeling weak and had fever of 102. HISTORY OF PRESENT ILLNESS: This 75-year-old man with history of hypertension, diabetes, hypercholes terolemia, end-stage renal disease on hemodialysis. The patient also had a history of renal cancer, history of nephrectomy. He also comes to [facility] frequently, admitted 2 times before - came in because of fever. He also has denied any cough, any shortness of breath. He did complain of óscar e abdominal discomfort, more of a constipation than pain. However, he did have some discomfort in th e lower abdomen. He tried to move his bowels, but he did not for the last few days. The patient den ied any history of any abdominal surgery or any diverticulitis in the past. PAST MEDICAL HISTORY: As above in the present illness, diabetes, hypertension, hypercholesterolemia, end-stage renal disease, history of renal cancer, partial nephrectomy. SOCIAL HISTORY: Smoking: Never smoked. Alcohol: None. Drugs: None. The patient has lived with the family. ALLERGIES: No known allergy. REVIEW OF SYSTEMS: He does feel generalized weakness, constipation. Otherwise, no chest pain, no sh ortness of breath, no back pain. PHYSICAL EXAMINATION: GENERAL: The patient is in dialysis right now, comfortable, no distress. VITAL SIGNS: Temperature 101.1, heart rate 68, blood pressure 156/65, respirations 20, saturation 10 0% on room air. HEAD AND NECK: Normal. No JVD, no thyromegaly. CHEST: Clear, good air entry. CARDIAC: First and second sounds are normal. ABDOMEN: Soft. Very mild tender in the left lower quadrant area on deep palpation. EXTREMITIES: No edema. NEUROLOGIC: Normal. LABORATORY DATA: As follows: White count 4.6, hemoglobin 12.4, hematocrit 37.0. Platelets are 86. Chemistry: Sodium 141, potassium 5, chloride 95, bicarb 27. BUN 78, creatinine 9.5. Phosphorus 8.2 , magnesium 2.7. He also has total protein 8.5. He also has procalcitonin 0.26. The patient also tests being done - chest x-ray, which shows calcified granuloma in both upper lobes, more numerous on the left. There are no focal consolidations, pleura negative. Electrocardiogram was read, and it was normal sinus rhythm, normal EKG. IMPRESSION AND PLAN: This is a 75-year-old male dialysis patient, diabetic, hypertensive, history of fever of 102. The patient does do dialysis. Concern is: 1. Fever 101-102, etiology possible sepsis. We will get blood cultures x 2. Chest x-ray has been n egative, and we will get also infectious disease consultation. Possible etiology could be intra-abdo kallie infections. We will continue vancomycin ____ 1 gram given on admission within 24 hours, and Ro cephin also will be given 1 gram daily for possible left-sided diverticulitis. We will get a gastroi ntestinal consultation, Dr. Huber, and Dr. Tavera for hemodialysis management. 2. Hypertension, diabetes. We will resume all his meds. We will follow up clinically. Barber Aguirre MD cc: [phone] TT: 07/26/2016 10:01:10 jn
--- NOTE | 2016-07-26 12:14 | PN ---
DATE: 07/26/2016 Seen and examined at the bedside earlier today. Denies any symptoms of nausea or vomiting. He denie s abdominal pain. Most of the pain he states is on the left upper quadrant by his rib cage. He says he bumped into the washing machine. He was started on MiraLax yesterday. He has not had a bowel mo vement, although he took oral contrast for CT scan of the abdomen and pelvis. Denies nausea or vomit ing. No reports of overt GI bleed. His T-max was 99.8 this morning. He did have a temp around 6:00 p.m. last night of 100. VITAL SIGNS: His blood pressure this morning is 142/64, pulse rate 60, respirations 19, [address] on room a ir[address] CT scan of abdomen and pelvis was done, though report is pending. His blood cultures x 2 are both ne gative. Urine culture is not collected yet. PHYSICAL EXAMINATION: HEENT: Sclerae are anicteric. NECK: Supple. CARDIAC: S1, S2. LUNGS: With decreased breath sounds, but good aeration, no rales or wheeze. ABDOMEN: With bowel sounds. Soft. I did not palpate any tenderness in the left lower quadrant, but he did have some tenderness by the left upper quadrant by the rib cage. EXTREMITIES: Positive pulses. No edema. NEUROLOGIC: He is noted to have some weakness in the left foot. He says that he has had weakness in the past, but it is a little bit more now. It looks like he has a history of foot drop in the past? Awake, alert, and oriented ASSESSMENT: This is a 75-year-old male with a history of end-stage renal disease on dialysis, came t o the hospital with complaints of feeling weak and hot. He was found to have fever of 102. So far, his blood cultures are negative. He does have a history of chronic hepatitis C. He is on thyroid tr eatment. History of renal cell carcinoma with partial nephrectomy. The patient is reported to have abdominal pain. It looks like it is left upper quadrant near the rib cage where he bumped himself by the washing machine. Could be contributing from that, but the patient went for a CT scan of abdomen and pelvis and those results are still pending. We will follow this up. He also has constipation. Other comorbidities are hypertension, history of gastric polyp and grade I varices and diabetes mayte itus. PLAN: Follow up the CT scan. We will call radiology file room. He is on IV antibiotics, meropenem. Urine culture is pending. He is being followed by ID. Continue Protonix 20 daily. He is on hepar in q. 12. He is on stool softeners. We will start him on MiraLax daily and follow up the hepatitis panel and hepatitis B virus DNA. The patient was seen and case discussed with Dr. Huber. Chanel BURNS cc: [phone] TT: 07/26/2016 12:13:58 Confirmation # [id number] Dictation # [id number] tn
--- NOTE | 2016-07-26 13:30 | CT ---
PROCEDURE: CT Abdomen and Pelvis with contrast HISTORY: abdominal pain, constipation COMPARISON: 09/18/2011. TECHNIQUE: Contrast dose: Radiation dose: Total exam DLP = 260 mGy-cm. FINDINGS: LOWER THORAX: posterior pleural thickening lateral pleural-based nodular is partly calcified are present. Bilateral keyla diaphragmatic pleural based nodules -partly calcified -are noted. These bi basilar nodules -largely pleural-based - are more conspicuous on the current study. Bilateral calcified pleural plaques probably relating to prior this doses exposure is consistent with this. Other types of neoplastic nodules cannot be excluded LIVER: The previously referenced hypodensity in the liver is not clearly appreciated. Noncontrast status limits optimal evaluation No intrahepatic dilated ducts appreciated GALLBLADDER AND BILE DUCTS: Unremarkable. PANCREAS: Coarse pancreatic calcifications- similar-appearing and most pronounced in the tail. No ductal dilatation. The fullness of the pancreatic head is renoted with some prominence of the common bile duct here also possible - as it is slightly more conspicuous on this exam. Limited evaluation without early phase contrast-enhanced pancreatic study. Evaluation also limitation given the absent fat planes and abscess oral contrast within the contiguous duodenum. Findings here indeterminate regarding the pancreatic head ; a pancreas mass is not excluded. No dilated pancreatic duct however, is suggested . SPLEEN: Unremarkable. ADRENALS: Bilateral thickened individual adrenal limbs No mass. KIDNEYS AND URETERS: An interval course partly peripheral rimmed calcified left renal mass mid pole is noted the sub cm hypodensity in the medial left upper renal pole cortex is not clearly seen on the prior exam. The prior left renal 1 cm hypodensity inferior to this is not identified on the current study conversely. The prior 2.8 cm medial right midpole isodose slightly hyperdense solid appearing mass appears slightly smaller still isodose slightly hyperdense in appearance now measuring approximate 2.2 cm. There is an adjacent 1 cm hypodensity on the current study (current axis series 2, image 59) posterior and right lateral to this mass not apparent on prior study. An additional hypodensity posterior right lower renal pole cortical 1.1 cm is probably stable since 2012. Anterior right lower renal pole parenchymal calcification appearing. No hydronephrosis. VASCULATURE: Atherosclerotic vascular calcification. No aortic aneurysm. BOWEL: Patulous rectum-with stool retention here No obstruction. No gross mural thickening. APPENDIX: Normal appendix. PERITONEUM: Unremarkable. No free fluid. No free air. LYMPH NODES: No enlarged lymph nodes. BLADDER: Under distended otherwise unremarkable REPRODUCTIVE: Enlarged prostate BONES: No acute fracture. Extensive diffuse thoracic spondylosis and bridging osteophytes. No lytic lesions OTHER FINDINGS: Right groin hernia repair changes IMPRESSION: Bilateral renal mix pathologies - some showing similar characteristics since 2012 as detailed above. Underlying the renal neoplasms possible -- most notable interval changes in the left kidney -here, a calcified left renal mass is noted . Mixed pathologies in the pancreas: Coarse pancreatic tail calcifications similar-appearing. Pancreatic head fullness with mild increased conspicuity/minimal prominence of the common bile duct here. Underlying pancreatic neoplasm here is not excluded; limited exam without early phase contrast enhancement. Findings are indeterminate Atherosclerotic vascular calcifications without gross aneurysm Interval bibasilar posterior pleural diaphragmatic nodules -some partly calcified oval calcified pleural plaques are a consideration. Enlarged prostate ; consider correlation with PSA
--- NOTE | 2016-07-26 14:59 | CP.PCM.PN ---
Subjective - Date & Time of Evaluation Date of Evaluation: 07/26/16 Time of Evaluation: 10:25 - Subjective Subjective: Comfortable in bed, not in distress, no fevers after midnight. Objective - Vital Signs/Intake and Output Vital Signs (last 24 hours): Temp Pulse Resp BP Pulse Ox 99.8 F H 60 19 142/64 95 07/26/16 07:30 07/26/16 09:09 07/26/16 07:30 07/26/16 09:09 07/26/16 07:30 Intake and Output: 07/26/16 07/26/16 06:59 18:59 Intake Total 240 Output Total 0 Balance 240 - Medications Medications: Current Medications Acetaminophen (Tylenol 325mg Tab) 650 mg PO Q6H PRN PRN Reason: Fever >100.4 F Last Admin: 07/25/16 15:16 Dose: 650 mg Amlodipine Besylate (Norvasc) 10 mg PO DAILY [facility] Last Admin: 07/26/16 09:09 Dose: 10 mg Aspirin (Ecotrin) 325 mg PO DAILY [facility] Last Admin: 07/26/16 09:19 Dose: 325 mg Docusate Sodium (Colace) 100 mg PO BID [facility] Last Admin: 07/26/16 09:08 Dose: 100 mg Donepezil HCl (Aricept) 10 mg PO HS [facility] Last Admin: 07/25/16 21:02 Dose: 10 mg Gabapentin (Neurontin) 100 mg PO Q8 [facility] PRN Reason: Protocol Last Admin: 07/26/16 05:25 Dose: 100 mg Heparin Sodium (Porcine) (Heparin) 5,000 units SC Q12 [facility] PRN Reason: Protocol Last Admin: 07/26/16 09:10 Dose: 5,000 units Meropenem 500 mg/ Sodium (Chloride) 100 mls @ 100 mls/hr IVPB Q24H [facility] PRN Reason: Protocol Stop: 08/01/16 10:01 Last Admin: 07/26/16 09:16 Dose: 100 mls/hr Insulin Human Regular (Humulin R Low) 0 units SC ACHS [facility] PRN Reason: Protocol Last Admin: 07/26/16 08:12 Dose: Not Given Pantoprazole Sodium (Protonix Ec Tab) 20 mg PO 0730 [facility] Last Admin: 07/26/16 09:14 Dose: 20 mg Pentoxifylline (Pentoxil) 400 mg PO Q8 [facility] Last Admin: 07/26/16 05:25 Dose: 400 mg Pregabalin (Lyrica) 50 mg PO BID [facility] Last Admin: 07/26/16 09:10 Dose: 50 mg Valsartan (Diovan) 320 mg PO DAILY [facility] Last Admin: 07/26/16 09:14 Dose: 320 mg - Labs Labs: 07/26/16 06:00 07/26/16 06:00 PT 12.5 Seconds (9.9-11.8) H 07/24/16 20:30 INR 1.16 (0.93-1.08) H 07/24/16 20:30 APTT 39.8 Seconds (23.7-30.8) H 07/24/16 20:30 - Constitutional Appears: Non-toxic, No Acute Distress - Head Exam Head Exam: NORMAL INSPECTION - ENT Exam ENT Exam: Mucous Membranes Moist - Neck Exam Neck Exam: absent: Lymphadenopathy, Meningismus - Respiratory Exam Respiratory Exam: Decreased Breath Sounds - Cardiovascular Exam Cardiovascular Exam: +S1, +S2 - GI/Abdominal Exam GI & Abdominal Exam: Soft. absent: Tenderness Assessment and Plan - Assessment and Plan (Free Text) Plan: Assessment Systemic Inflammatory Response Syndrome (fever and tachypnea), R/O sepsis, so far no evidence yet found HTN DM dyslipidemia ESRD on HD renal cancer S/P partial nephrectomy Plan Gave one dose of IV Vancomycin and continue renally-adjusted Meropenem (day 2) ; blood cx are negative; follow up urine cx; PCT ins only 0.26; CXR still shows the upper lobe calcified granulomas (unchanged from previous admission) but no focal consolidation or infiltrate; rapid Influenza test is negative Will continue to monitor clinically
--- NOTE | 2016-07-26 23:47 | CP.PCM.PN ---
Objective - Vital Signs/Intake and Output Vital Signs (last 24 hours): Temp Pulse Resp BP Pulse Ox 98.7 F 57 L 18 98/53 L 96 07/26/16 16:00 07/26/16 16:00 07/26/16 16:00 07/26/16 16:00 07/26/16 16:00 Intake and Output: 07/26/16 07/27/16 18:59 06:59 Intake Total 360 Balance 360 - Medications Medications: Current Medications Acetaminophen (Tylenol 325mg Tab) 650 mg PO Q6H PRN PRN Reason: Fever >100.4 F Last Admin: 07/25/16 15:16 Dose: 650 mg Amlodipine Besylate (Norvasc) 10 mg PO DAILY [facility] Last Admin: 07/26/16 09:09 Dose: 10 mg Aspirin (Ecotrin) 325 mg PO DAILY [facility] Last Admin: 07/26/16 09:19 Dose: 325 mg Docusate Sodium (Colace) 100 mg PO BID [facility] Last Admin: 07/26/16 19:19 Dose: 100 mg Donepezil HCl (Aricept) 10 mg PO HS [facility] Last Admin: 07/26/16 22:22 Dose: 10 mg Gabapentin (Neurontin) 100 mg PO Q8 [facility] PRN Reason: Protocol Last Admin: 07/26/16 22:22 Dose: 100 mg Heparin Sodium (Porcine) (Heparin) 5,000 units SC Q12 [facility] PRN Reason: Protocol Last Admin: 07/26/16 22:22 Dose: 5,000 units Meropenem 500 mg/ Sodium (Chloride) 100 mls @ 100 mls/hr IVPB Q24H [facility] PRN Reason: Protocol Stop: 08/01/16 10:01 Last Admin: 07/26/16 09:16 Dose: 100 mls/hr Insulin Human Regular (Humulin R Low) 0 units SC ACHS [facility] PRN Reason: Protocol Last Admin: 07/26/16 16:19 Dose: Not Given Pantoprazole Sodium (Protonix Ec Tab) 20 mg PO 0730 [facility] Last Admin: 07/26/16 09:14 Dose: 20 mg Pentoxifylline (Pentoxil) 400 mg PO Q8 [facility] Last Admin: 07/26/16 22:22 Dose: 400 mg Pregabalin (Lyrica) 50 mg PO BID [facility] Last Admin: 07/26/16 19:19 Dose: 50 mg Valsartan (Diovan) 320 mg PO DAILY [facility] Last Admin: 07/26/16 09:14 Dose: 320 mg - Labs Labs: 07/26/16 06:00 07/26/16 06:00 PT 12.5 Seconds (9.9-11.8) H 07/24/16 20:30 INR 1.16 (0.93-1.08) H 07/24/16 20:30 APTT 39.8 Seconds (23.7-30.8) H 07/24/16 20:30 Assessment and Plan (1) ESRD (end stage renal disease) on dialysis Status: Acute (2) SIRS (systemic inflammatory response syndrome) Status: Acute (3) Anemia Status: Acute (4) Diabetes mellitus Status: Chronic (5) Hyperphosphatemia Status: Acute (6) HTN (hypertension) Status: Acute
[2016-07-27 06:37] LABS: ADD MANUAL DIFF? NO
[2016-07-27 06:52] LABS: BASO # 0.01 K/mm3 (0.0-2.0); BASO % 0.2 % (0.0-3.0); EOS # 0.1 (0.0-0.7); EOS % 2.2 % (1.5-5.0); GRAN # 2.59 (1.4-6.5); GRAN % 64.6 % (50.0-68.0); HEMATOCRIT 33.7 % (42.0-52.0); LYMPH # 0.9 (1.2-3.4); LYMPH % 21.6 % (22.0-35.0); MEAN CELL VOLUME 88.7 fL (80.0-105.0); MEAN CORPUSCULAR HGB CONC 33.8 g/dl (31.0-37.0); MONO # 0.5 (0.1-0.6); MONO % 11.4 % (1.0-6.0); PLATELET COUNT 100 10^3/uL (120.0-450.0); RED CELL DISTRIBUTION WIDTH 14.3 % (11.5-14.5)
[2016-07-27 07:05] LABS: ALB/GLOB RATIO 0.9 (1.1-1.8); BILIRUBIN,TOTAL 0.6 mg/dL (0.2-1.3); CALCIUM 8.3 mg/dL (8.4-10.5); MAGNESIUM 2.4 mg/dL (1.7-2.2); PHOSPHOROUS 9.5 mg/dL (2.5-4.5); POTASSIUM 4.4 mmol/L (3.6-5.0); TOTAL PROTEIN 7.6 g/dL (5.8-8.3)
[2016-07-27] MEDS: Insulin Reg-LOW-Coverage SC SCH ×4 (07:30→22:47)
--- NOTE | 2016-07-27 08:13 | PN ---
DATE: 07/26/2016 ADDENDUM This is an addendum to the GI progress report dictated by Chanel Schulz NP. The patient was seen and evaluated earlier. Still has some discomfort on the left side of the abdome n. His temperature is 98.2; yesterday T-max was 102.1. The patient has been tolerating the diet. EXAMINATION: ABDOMEN: Soft, there is no mass, mild tenderness on deep palpation in the left side of the abdomen. There is no rebound or guarding. IMPRESSION: This 75-year-old patient with weakness, fever. Had a CT scan done which was reviewed. Has some prominence of the pancreatic head, and also appears to have a large amount of stool in the rectum. The patient has a renal mass. 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 1. The patient was on Vired 300 mg q. weekly in the past. Poorly compliant patient. I do not find any recent home medication; does not list Vired. Will review with the pharmacy when was the last dos e of Vired filled up, and get more information. The patient is a poor historian. Will also discuss with the patient's daughter regarding this. 2. Will give the patient an oil enema, and also will start the patient on MiraLax. PCR has been ord ered. Will follow up on that. 3. Regarding the pancreatic head prominence. The patient has a history of possible chronic pancreat itis, history of ethyl alcohol in the past. The patient had a renal cell carcinoma, status post part ial nephrectomy. Will discuss with the patient regarding MRI. If he is agreeable, will be schedule for that to further evaluate the pancreas. 4. End-stage renal disease on hemodialysis. Multiple comorbidities. Will discuss with Dr. Aguirre. Thank you very much for allowing us to participate in the care of the patient. Liss Huber MD cc: [id number] TT: 07/26/2016 21:09:53 Confirmation # [id number] Dictation # [id number] shamir
--- NOTE | 2016-07-27 10:00 | US ---
HISTORY: possible renal mass, pancreatic mass COMPARISON: 07/26/2016. CT abdomen and pelvis. TECHNIQUE: Sonographic evaluation of the abdomen. FINDINGS: LIVER: Measures 12.8 cm. Normal echogenicity of the liver parenchyma. No mass. No intrahepatic bile duct dilatation. GALLBLADDER: Unremarkable. No gallstones. COMMON BILE DUCT: Measures 3.0 mm. No stones. No dilatation. PANCREAS: Unremarkable as visualized. No pancreatic head mass. Findings consistent with chronic pancreatitis apparent on prior CT scan are not appreciated on the current examination. RIGHT KIDNEY: Measures 10.2 x 4.7cm. Normal echogenicity. No calculus, mass, or hydronephrosis. Simple cyst identified, finding confirmed on prior CT scan. LEFT KIDNEY: Measures 4.8 x 9.1cm. Normal echogenicity. No calculus, mass, or hydronephrosis. Partially calcified cyst left kidney 1.4 cm finding confirmed on prior CT scan. SPLEEN: Normal in size and contour. No mass. AORTA: No aneurysmal dilatation. IVC: Unremarkable. OTHER FINDINGS: None. IMPRESSION: No significant or acute findings to account for/ related to the clinical presentation. Specifically, no pancreatic mass identified.
--- NOTE | 2016-07-27 10:43 | PN ---
DATE: 07/26/2016 SUBJECTIVE: The patient seems stable. No complaint. Afebrile. No chest pain or shortness of breat h. ____. PHYSICAL EXAMINATION: VITAL SIGNS: Temperature 98.7, heart rate 57, blood pressure is 98/53, respirations 18, saturation 9 6% on room air. HEAD AND NECK: Normal. No JVD, no thyromegaly. CHEST: Clear, good air entry. CARDIAC: First sound, second sound normal. ABDOMEN: Soft, nontender. EXTREMITIES: No edema. NEUROLOGIC: Normal. LABORATORY DATA: White count 4.8, hemoglobin 12.1, hematocrit 36.9, platelets 87. Chemistry shows s odium is 139, potassium 4.7, chloride 95, bicarb of 21. BUN 49 and creatinine 6.1. The patient also had magnesium 2.4 and phosphorus 7.7. The patient also has total protein 8.4. The patient also had CT abdomen and pelvis, question renal mass, question fullness in the pancreas on the CAT scan of the abdomen and pelvis. No evidence of diverticulitis. IMPRESSION AND PLAN: 1. Abdominal pain, constipation. Continue current management. The patient moved his bowels, doing better. We will get ultrasound of the abdomen and pelvis to look at the kidneys and the pancreas and we will follow up with the gastroenterology consult, Dr. Huber. 2. Chronic renal failure. Continue hemodialysis. 3. The patient also has a history of hypertension. Continue Norvasc and Diovan. Currently on Diova n 320 and Norvasc 10, seems stable. 4. Diabetes. Continue insulin coverage for now and monitor his blood sugar on a regular basis. 5. Possible fever of 102. Negative blood cultures. Possible systemic inflammatory syndrome, possib le underlying infections could be. At this time, patient getting vancomycin and meropenem. Continue current treatment. Follow up clinically. The patient also getting Ecotrin, Lyrica and pentoxifylli ne and Protonix 20 p.o. daily. Continue current treatment. Barber Aguirre MD cc: [id number] TT: 07/27/2016 10:42:08 Confirmation # [id number] Dictation # [id number] tn
--- NOTE | 2016-07-27 12:35 | PN ---
DATE: 07/27/2016 Seen and examined at the bedside. He was in dialysis, receiving dialysis. He reports that the left-sided upper quadrant discomfort is much improved. No nausea, vomiting, or abdominal pain. He reports not having a bowel movement. CT scan was reviewed. He also went for an abdominal ultrasound. VITAL SIGNS: Temperature is 99.4, blood pressure is 122/65, pulse 54, respirations 20, 98 on room air. LABORATORY DATA: WBC is 4.0, H and H are hemoglobin 11.4 and hematocrit 33.7, platelets are 100. Chem: Sodium 135, K is 4.4, BUN is 71, creatinine is 7.4. His mag is 2.4. LFTs are within normal limits. CT scan of abdomen and pelvis with oral contrast showed mixed pathologies in the pancreas. It shows, of course, pancreatic tail calcifications similar appearing, the pancreatic head fullness with mild increased conspicuity and minimal prominence of the common bile duct here. Underlying pancreatic neoplasm here is not excluded. Limited exam without early phase contrast enhancement. Findings are indeterminate. Bilateral renal mixed pathology showing similar characteristics since 2011, underlying renal neoplasm possible, most notable interval changes in the left kidney here, a calcified left renal mass is noted. Atherosclerotic vascular calcifications without gross aneurysm, also bibasilar posterior pleural diaphragmatic nodules, some partially calcified , ____ calcified pleural plaques are a consideration. Enlarged prostate. Gallbladder and bile ducts unremarkable. He then went for an abdominal ultrasound and this showed normal echogenicity of the liver parenchyma. The gallbladder was unremarkable, no gallstones. The common bile duct measures 3.0 mm. The pancreas was unremarkable as visualized. No pancreatic head mass. Findings consistent with chronic pancreatitis apparent on prior CT scan are not appreciated on the exam. PHYSICAL EXAMINATION: HEENT: Sclerae anicteric. NECK: Supple. CARDIAC: S1, S2. LUNGS: With decreased breath sounds, but good air entry. ABDOMEN: With bowel sounds. It is soft, nontender on deep palpation. ASSESSMENT: The patient came with abdominal pain but it is mostly in the left upper quadrant near the ribcage. This is improved as per patient. He did get CT scan of abdomen and pelvis with oral contrast, reporting some abnormalities in the pancreas and kidneys. The patient does have history of renal carcinoma, status post partial nephrectomy. He went for an abdominal ultrasound to follow this up, and it did not report any acute findings in the pancreas or gallbladder. The common bile duct was 3 mm. The patient is constipated. The patient also came with fever, history of chronic hepatitis B; end-stage renal disease, on dialysis. He also has hypertension, history of gastric polyp and grade I varices as well as diabetes mellitus. PLAN: Consider MRI. I did speak to the patient and he is willing to go for MRI to further evaluate the pancreas. He is currently on Colace b.i.d. We will put him on MiraLax daily and give him a Dulcolax suppository as well. Follow up his hepatitis B virus DNA and continue PPI; he is on low dose of Protonix 20. He is also on heparin subQ q. 12 and is on IV antibiotics as per ID. He is on meropenem. The patient was seen and case discussed with Dr. Huber. Chanel BURNS cc: [id number] TT: 07/27/2016 12:34:56 Confirmation # [id number] Dictation # [id number] mn [email or web address]
[2016-07-27] MEDS: Meropenem 500 MG in Sodium Chloride 0.9% 100 ML IVPB SCH (14:47)
[2016-07-27] MEDS: Aspirin 325 mg EC Tablets PO SCH (14:48)
[2016-07-27] MEDS: Pantoprazole 20 mg EC Tab PO SCH (14:49)
[2016-07-27] MEDS ORDERED: Mineral Oil Enema 135 ml RC ONE (16:00)
[2016-07-27] MEDS: POLYETHYLENE GLYCOL 3350 17 GM/Dose PACKET PO SCH (18:10)
[2016-07-28 06:32] LABS: ADD MANUAL DIFF? NO
[2016-07-28 06:42] LABS: BASO # 0.02 K/mm3 (0.0-2.0); BASO % 0.7 % (0.0-3.0); EOS # 0.1 (0.0-0.7); EOS % 3.3 % (1.5-5.0); GRAN # 1.67 (1.4-6.5); GRAN % 55.9 % (50.0-68.0); HEMATOCRIT 35.7 % (42.0-52.0); LYMPH # 0.8 (1.2-3.4); LYMPH % 26.4 % (22.0-35.0); MEAN CORPUSCULAR HEMOGLOBIN 29.7 pg (25.0-35.0); MEAN CORPUSCULAR HGB CONC 33.3 g/dl (31.0-37.0); MONO # 0.4 (0.1-0.6); MONO % 13.7 % (1.0-6.0); PLATELET COUNT 91 10^3/uL (120.0-450.0); RED CELL DISTRIBUTION WIDTH 14.2 % (11.5-14.5)
[2016-07-28 06:55] LABS: ALB/GLOB RATIO 0.9 (1.1-1.8); BILIRUBIN,TOTAL 0.5 mg/dL (0.2-1.3); MAGNESIUM 2.2 mg/dL (1.7-2.2); POTASSIUM 4.4 mmol/L (3.6-5.0); TOTAL PROTEIN 7.7 g/dL (5.8-8.3)
--- NOTE | 2016-07-28 07:00 | PN ---
DATE: 07/27/2016 This patient was seen and evaluated earlier. This is an addendum to the GI progress report dictated by Chanel Schulz CMP. CT was reviewed; has stool in the colon. The patient received laxatives. The patient has a history of renal carcinoma, status post partial nephrectomy; chronic end-stage renal disease, on hemodialysis; history of chronic hepatitis B. The patient was on Viread once a week. The patient is not sure about his medication for the chronic hepatitis B. Presently, the patient's CT scan was reviewed. The patient is scheduled for an MRI without contrast. Will continue to closely follow up his care and suggest further management based on the clinical course. Liss Huber MD cc: [id number] TT: 07/28/2016 06:59:20 Confirmation # [id number] Dictation # [id number] berkley HANSEN
[2016-07-28 07:04] LABS: PHOSPHOROUS 6.9 mg/dL (2.5-4.5)
[2016-07-28 08:47] VITALS: RESP 20; TEMP 99.3; O2SAT 100
[2016-07-28] MEDS: POLYETHYLENE GLYCOL 3350 17 GM/Dose PACKET PO SCH (09:58)
[2016-07-28] MEDS: Aspirin 325 mg EC Tablets PO SCH (09:59)
[2016-07-28] MEDS: Meropenem 500 MG in Sodium Chloride 0.9% 100 ML IVPB SCH (10:04)
[2016-07-28] MEDS: Pantoprazole 20 mg EC Tab PO SCH (10:04)
[2016-07-28 10:06] VITALS: BP 112/52; PULSE 55
--- NOTE | 2016-07-28 11:10 | PN ---
DATE: 07/27/2016 The patient seems comfortable, no distress, no chest pain, no short of breath. He does move his doretha ls now. No abdominal pain, no nausea or vomiting. Currently, meropenem IV plus vancomycin for fever of 102. Seems afebrile today. PHYSICAL EXAMINATION: VITAL SIGNS: On 07/27/2016, temperature is 99.4, heart rate 54, blood pressure 122/65, respirations 2 0, saturation 98%. HEAD AND NECK: Normal. No JVD. No thyromegaly. CHEST: Clear, good air entry. CARDIAC: First and second sounds are normal. ABDOMEN: Soft, nontender. EXTREMITIES: No edema. NEUROLOGIC: Normal. LABORATORY DATA: White count 4, hemoglobin 11.4, hematocrit 33.7, platelet is 100. His chemistry no glory for sodium 135, potassium 4.4, chloride 94, bicarb 27, BUN 71, creatinine 7.4. The patient does have phosphorus 9.5, which is very high, magnesium 2.4, total protein 8.4. IMPRESSION AND PLAN: 1. Fever 102, etiology unclear. Blood culture so far negative. Continue meropenem and vancomycin. Follow up with ID consult. 2. Abdominal pain. CT negative. No masses in the pancreas or the kidneys. We will follow up with a GI consult. 3. Thrombocytopenia. We will order platelet manual count. We will get a hematology consult to marco alberts that. Could be drug related. Previous charts, his platelet count was normal on previous admiss ions, so the low platelets we are going to be evaluating for etiology. Still in the 90s-100 range. No active bleeding. 4. Chronic renal failure. Continue hemodialysis. Stable. 5. 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 The patient currently has not received anything for hyperphosphatemia. Will discuss with the nephr ologist on the case. 6. Hypertension, diabetes type 2, peripheral neuropathy, dementia. MEDICATIONS: Continue Aricept, Colace for constipation, Diovan for hypertension 320, aspirin 325 mg p.o. daily, heparin subQ, insulin coverage, Lyrica, meropenem IV 500 q. 2 hours, MiraLax, Neurontin 1 00 p.o. t.i.d., Norvasc 10 mg p.o. daily, pentoxifylline 400 mg t.i.d., Protonix 20 mg p.o. daily and Tylenol p.r.n. PLAN: Continue current management. Follow up with nephrology and hematology about current managemen t. The patient may benefit from TCU. Barber Aguirre MD cc: [phone] TT: 07/28/2016 11:09:36 Confirmation # [id number] Dictation # [id number] rn
[2016-07-28] MEDS: Insulin Reg-LOW-Coverage SC SCH ×3 (11:13→17:45)
--- NOTE | 2016-07-28 14:36 | PN ---
DATE: 07/28/2016 Seen and examined at the bedside earlier today. The patient refused a Fleet enema yesterday, but he reported having a bowel movement, but it was hard, but no reports of any bleeding. He denies any abdominal pain, nausea, vomiting, shortness of breath or chest pain. No further reports of fever, T-max was 99.3. VITAL SIGNS: Temperature is 99.3, blood pressure is 112/52, pulse 55, respirations 20, 100 on room air. LABORATORY DATA: Today, WBC is 3.0, H and H is 11.9 and 35.7. His platelet count is 91 and a manual is 100. Sodium is 140, K is 4.4, BUN 44, creatinine is 5.1. His mag is 2.2. LFTs are within normal limits. Hep panel, his hepatitis B surface antigen is positive. Hepatitis B surface antigen neutralization is positive. Hep C antibody is negative. He is pending hep B virus DNA. PHYSICAL EXAMINATION: HEENT: Sclerae are anicteric. NECK: Supple. CARDIAC: S1, S2. LUNGS: Clear. ABDOMEN: With bowel sounds. Nontender. No rebound or guarding. ASSESSMENT: The patient is a 75-year-old male who came with fever, feeling weakness and he was complaining of abdominal pain. His abdominal pain has resolved. He was found to have some constipation. Also he was noted to have some pancreatic changes on the CT scan. He does have a history of renal carcinoma status post partial nephrectomy. Also a history of end-stage renal disease on dialysis, history of chronic hepatitis B, as well as hypertension, gastric polyp and grade I varices. PLAN: The patient is still pending MRCP. He still agrees to go for the test. We will give him a Dulcolax suppository and continue the MiraLax b.i.d. He remains on IV antibiotics with meropenem, he is on DVT prophylaxis, heparin as well as getting stool softener and aspirin. The patient is going to be transferred to TCU for rehabilitation and IV antibiotics. We will follow. The patient was seen and case discussed with Dr. Huber. Also, patient was noted to have some thrombocytopenia. He will be evaluated by hematology. ADDENDUM: Spoke to the patient daughter in detail regarding MRCP report findings and H/O Chronic Hepatitis B, patient is not currently taking Viread, said secondary to H/O renal functions, will FU Hep B DNA and then reconsider treatment if needed. Chanel BURNS cc: [id number] TT: 07/28/2016 14:35:53 Confirmation # [id number] Dictation # [id number] faheem HANSEN
--- NOTE | 2016-07-28 15:03 | CP.PCM.PN ---
Subjective - Date & Time of Evaluation Date of Evaluation: 07/28/16 Time of Evaluation: 11:00 - Subjective Subjective: Comfortable, afebrile, not in distress, Objective - Vital Signs/Intake and Output Vital Signs (last 24 hours): Temp Pulse Resp BP Pulse Ox 99.3 F 55 L 20 112/52 L 100 07/28/16 08:00 07/28/16 09:59 07/28/16 08:00 07/28/16 09:59 07/28/16 08:00 Intake and Output: 07/28/16 07/28/16 06:59 18:59 Intake Total 720 Output Total 100 Balance 620 - Medications Medications: Current Medications Acetaminophen (Tylenol 325mg Tab) 650 mg PO Q6H PRN PRN Reason: Fever >100.4 F Last Admin: 07/25/16 15:16 Dose: 650 mg Amlodipine Besylate (Norvasc) 10 mg PO DAILY [facility] Last Admin: 07/28/16 09:59 Dose: 10 mg Aspirin (Ecotrin) 325 mg PO DAILY [facility] Last Admin: 07/28/16 09:59 Dose: 325 mg Docusate Sodium (Colace) 100 mg PO BID [facility] Last Admin: 07/28/16 09:58 Dose: 100 mg Donepezil HCl (Aricept) 10 mg PO HS [facility] Last Admin: 07/27/16 22:47 Dose: 10 mg Gabapentin (Neurontin) 100 mg PO Q8 [facility] PRN Reason: Protocol Last Admin: 07/28/16 13:27 Dose: 100 mg Heparin Sodium (Porcine) (Heparin) 5,000 units SC Q12 [facility] PRN Reason: Protocol Last Admin: 07/28/16 09:59 Dose: 5,000 units Insulin Human Regular (Humulin R Low) 0 units SC ACHS [facility] PRN Reason: Protocol Last Admin: 07/28/16 11:37 Dose: Not Given Pantoprazole Sodium (Protonix Ec Tab) 20 mg PO 0730 [facility] Last Admin: 07/28/16 10:04 Dose: 20 mg Pentoxifylline (Pentoxil) 400 mg PO Q8 [facility] Last Admin: 07/28/16 13:27 Dose: 400 mg Polyethylene Glycol (Miralax) 17 gm PO BID [facility] Last Admin: 07/28/16 09:58 Dose: 17 gm Pregabalin (Lyrica) 50 mg PO BID [facility] Last Admin: 07/28/16 09:58 Dose: 50 mg Valsartan (Diovan) 320 mg PO DAILY [facility] Last Admin: 07/28/16 11:13 Dose: Not Given - Labs Labs: 07/28/16 05:50 07/28/16 05:50 PT 12.5 Seconds (9.9-11.8) H 07/24/16 20:30 INR 1.16 (0.93-1.08) H 07/24/16 20:30 APTT 39.8 Seconds (23.7-30.8) H 07/24/16 20:30 - Constitutional Appears: Non-toxic, No Acute Distress - Neck Exam Neck Exam: absent: Lymphadenopathy, Meningismus - Respiratory Exam Respiratory Exam: Decreased Breath Sounds - Cardiovascular Exam Cardiovascular Exam: +S1, +S2 - GI/Abdominal Exam GI & Abdominal Exam: Soft. absent: Tenderness Assessment and Plan - Assessment and Plan (Free Text) Assessment: Assessment Systemic Inflammatory Response Syndrome (fever and tachypnea), no evidence of sepsis identified DM dyslipidemia ESRD on HD renal cancer S/P partial nephrectomy Plan blood cx are negative; PCT ins only 0.26; CXR still shows the upper lobe calcified granulomas (unchanged from previous admission) but no focal consolidation or infiltrate; rapid Influenza test is negative; reviewed CT A/P - patient to undergo MRI abdomen Will d/c antibiotics and observe Will continue to monitor clinically
--- NOTE | 2016-07-28 15:27 | MRI ---
PROCEDURE: Magnetic Resonance Cholangiopancreatography HISTORY: Chronic pancreatitis. Prominent CBD COMPARISON: 12/24/2013. TECHNIQUE: Multiplanar, multisequence MR images of the abdomen were obtained, including heavily T2 weighted MRCP images of the biliary system. Rotating maximum intensity projection images of the biliary system were generated. FINDINGS: MRCP: The common bile duct measures 8 mm in diameter. . No evidence of choledocholithiasis. No intrahepatic biliary ductal dilatation. LIVER: The liver and spleen are markedly hypo intense consistent with hemochromatosis GALLBLADDER: Unremarkable. SPLEEN: Normal size. Hypo intense consistent with hemochromatosis PANCREAS: Unremarkable. ADRENALS: Unremarkable. KIDNEYS: The hemorrhagic lesion previously seen in the left kidney has resolved AORTA: No aneurysm. ASCITES: None. OTHER FINDINGS: None. IMPRESSION: No evidence of common duct stone. Hemochromatosis with a markedly hypointense liver and spleen.
--- NOTE | 2016-07-28 20:34 | CP.PCM.PN ---
Subjective - Date & Time of Evaluation Date of Evaluation: 07/28/16 Time of Evaluation: 12:00 - Subjective Subjective: Patient reports feeling well; denies fevers/chills; ambulating well; L ankle pain improved; Objective - Vital Signs/Intake and Output Vital Signs (last 24 hours): Temp Pulse Resp BP Pulse Ox 99.3 F 55 L 20 112/52 L 100 07/28/16 08:00 07/28/16 09:59 07/28/16 08:00 07/28/16 09:59 07/28/16 08:00 - Labs Labs: 07/28/16 05:50 07/28/16 05:50 PT 12.5 Seconds (9.9-11.8) H 07/24/16 20:30 INR 1.16 (0.93-1.08) H 07/24/16 20:30 APTT 39.8 Seconds (23.7-30.8) H 07/24/16 20:30 - Constitutional Appears: Well, No Acute Distress - Head Exam Head Exam: NORMAL INSPECTION - Eye Exam Eye Exam: Normal appearance. absent: Scleral icterus - ENT Exam ENT Exam: Mucous Membranes Moist - Neck Exam Neck Exam: Normal Inspection - Respiratory Exam Respiratory Exam: Clear to Ausculation Bilateral, NORMAL BREATHING PATTERN. absent: Rales, Rhonchi, Wheezes - Cardiovascular Exam Cardiovascular Exam: REGULAR RHYTHM, RRR, +S1, +S2 - GI/Abdominal Exam GI & Abdominal Exam: Soft. absent: Distended, Tenderness - Extremities Exam Additional comments: Mild L ankle swelling with warmth (improved from prior); - Neurological Exam Neurological Exam: Alert, Awake - Psychiatric Exam Psychiatric exam: Normal Affect, Normal Mood - Skin Skin Exam: Normal Color, Warm. absent: Cyanosis Assessment and Plan (1) ESRD (end stage renal disease) on dialysis Assessment & Plan: s/p routine HD session yesterday, next planned for tomorrow; euvolemic on exam, relatively stable electrolyte status; Status: Acute (2) SIRS (systemic inflammatory response syndrome) Assessment & Plan: Blood cultures neg to date; ID to stop abx and observe; was on meropenem dosed for HD; Status: Acute (3) Anemia Assessment & Plan: Hgb above goal of 10-11 for ESRD; no need for EPO at this time; Status: Acute (4) Hyperphosphatemia Assessment & Plan: Improved with HD; start phoslo 1 tab tid w/ meals; Status: Acute (5) HTN (hypertension) Assessment & Plan: Controlled on amlodipine and valsartan; continue Status: Acute (6) Hemochromatosis Assessment & Plan: Per MRCP findings, otherwise, unclear if patient has had this diagnosis made; will check iron studies, ferritin; Status: Acute (7) Renal mass Assessment & Plan: Bilateral renal masses; needs urology f/u as outpatient. Status: Acute
[2016-07-29 10:34] LABS: HEP B VIRUS DNA >170000000 IU/mL (()); HEP B VIRUS DNA >8.23 Log IU/mL (())
--- NOTE | 2016-07-30 20:24 | DS ---
The patient was admitted with fever of 102. The patient has a history of chronic renal failure. He has some abdominal discomfort. The patient underwent blood cultures x 2, seen by ID consult. Put hi m on vanco plus meropenem. His blood cultures x [address] abdomen and ultrasound did not s how any evidence of infections or mass. The patient also seen by Dr. Huber, GI performance improvement consultant, and Dr Tino Lara, ID consult, Dr. Tavera, nephrology consult. The patient was continued on IV antibi otic and was transferred to TCU for continuation of IV therapy. On , this patient's temperature 99.3, heart rate 58, blood pressure is 112/52, respirations 2 0, saturating 100%. HEAD AND NECK: Normal. No JVD, no thyromegaly. CHEST EXAMINATION: Clear, good entry. CARDIAC: 1st sound, 2nd sound normal. ABDOMEN: Soft, obese, nontender. EXTREMITIES: No edema. NEUROLOGICALLY: Normal. LABORATORY: Shows white count 3, hemoglobin 11.5, hematocrit 35.7, platelet is 91. His chemistry sh ows sodium 140, potassium 4.4, chloride 94, bicarb 31, BUN 44, creatinine 5.1. DISCHARGE DIAGNOSES: 1. Fever, etiology unclear. 2. Systemic inflammatory syndrome. 3. Diverticulosis, maybe. 4. Chronic renal failure. 5. Diabetes. 6. Hypertension. PLAN: Continue current therapy. Transfer to TCU for continuation of IV antibiotic. Barber Aguirre MD cc: [phone] TT: 07/29/2016 08:58:22 jn
== END 2016-07-28 16:32 | DRG 864 ==
LOC: ED 19:12 → ERH 23:23 → 5RNO 07-25 02:18 → OBSVTOIN 07-25 16:27
PROVIDERS: ADMIT Internal Medicine; ATTEND Internal Medicine
PROC: 5A1D00Z (ICD-10-PCS; principal; 2016-07-25)
DX: R50.9 Fever, unspecified (principal); I12.0 Hypertensive chronic kidney disease with stage 5 chronic kidney disease or end stage renal disease; N18.6 End stage renal disease; R65.10 Systemic inflammatory response syndrome (SIRS) of non-infectious origin without acute organ dysfunction; K86.1 Other chronic pancreatitis; B18.1 Chronic viral hepatitis B without delta-agent; E11.22 Type 2 diabetes mellitus with diabetic chronic kidney disease; D69.6 Thrombocytopenia, unspecified; E11.42 Type 2 diabetes mellitus with diabetic polyneuropathy; E11.43 Type 2 diabetes mellitus with diabetic autonomic (poly)neuropathy; F03.90 Unspecified dementia, unspecified severity, without behavioral disturbance, psychotic disturbance, mood disturbance, and anxiety; K31.84 Gastroparesis; K74.60 Unspecified cirrhosis of liver; E83.39 Other disorders of phosphorus metabolism; E78.5 Hyperlipidemia, unspecified; E78.00 Pure hypercholesterolemia, unspecified; M21.372 Foot drop, left foot; D64.9 Anemia, unspecified; K59.09 Other constipation; K57.90 Diverticulosis of intestine, part unspecified, without perforation or abscess without bleeding; Z99.2 Dependence on renal dialysis; Z85.528 Personal history of other malignant neoplasm of kidney; Z79.82 Long term (current) use of aspirin; Z90.5 Acquired absence of kidney

== ENCOUNTER 2016-07-28 16:32 | Inpatient (IN) | payer OTHER, BC ==
[2016-07-28] MEDS: POLYETHYLENE GLYCOL 3350 17 GM/Dose PACKET PO SCH (18:53)
[2016-07-28] MEDS: Meropenem 500 MG in Sodium Chloride 0.9% 100 ML IVPB SCH (19:10)
[2016-07-28] MEDS: Insulin Reg-LOW-Coverage SC SCH (21:29)
[2016-07-28 21:31] VITALS: BMI 23.6
[2016-07-28] MEDS ORDERED: Influenza Vaccine 45 MCG/0.5 ml IM ONE (21:31)
[2016-07-28] MEDS ORDERED: Pneumococcal 23-Valent Vaccine IM ONE (21:31)
[2016-07-29] MEDS: Pantoprazole 20 mg EC Tab PO SCH (05:40)
[2016-07-29] MEDS: Insulin Reg-LOW-Coverage SC SCH ×4 (06:46→21:08)
[2016-07-29] MEDS: Aspirin 325 mg EC Tablets PO SCH (08:22)
--- NOTE | 2016-07-29 12:26 | PN ---
DATE: 07/29/2016 The patient is a 75-year-old male with history of hepatitis B untreated, end-stage renal disease on h emodialysis, diabetes, hypertension; admitted with fevers. The patient, today, reports feeling well. Denies any abdominal pain, no nausea or vomiting, still constipated, breathing well. Reports his l eft foot pain has improved, although still with difficulty walking on it. PHYSICAL EXAMINATION: VITAL SIGNS: Blood pressure 136/83, heart rate 73, respirations 20, temperature 97.9, satting 96% on room air. GENERAL: No apparent distress. HEENT: Moist mucous membranes. CHEST: Clear to auscultation bilaterally. HEART: S1, S2 positive, no murmurs, no gallops. No JVD. ABDOMEN: Soft, nontender, nondistended. EXTREMITIES: No leg edema, very mild left ankle edema with very mildly increased warmth, compared to right, but overall improved. LABORATORY DATA: Labs from yesterday: WBC 3.0, hemoglobin 11.9, hematocrit 35.7, platelets 91. Yolanda kecia panel: Sodium 140, potassium 4.4, chloride 94, bicarbonate 31, BUN 44, creatinine 5.1, glucos e 83, albumin 3.5. ASSESSMENT AND PLAN: 1. End-stage renal disease on hemodialysis Sunday, , Sunday seen on dialysis today. The p atient appears euvolemic. Labs yesterday revealed stable electrolyte status. 2. Hypertension, relatively controlled. Continue amlodipine 10 and valsartan 320 mg daily. 3. Diabetes, currently on sliding scale insulin, continue. 4. Fevers. Blood cultures have been negative. Still on meropenem, correctly dosed for hemodialysis. Should be redosed after dialysis today. 5. Chronic kidney disease mineral bone disease. Phosphatase elevated. Started on PhosLo 1 tablet t. i.d. with meals. 6. Constipation, getting MiraLAX b.i.d. Do not give phosphate-containing Fleet's enema to the patien t with end-stage renal disease. Vincent Garcia MD cc: [id number] TT: 07/29/2016 12:25:51 Confirmation # [id number] Dictation # [id number] ln
[2016-07-29 12:32] LABS: ADD MANUAL DIFF? NO
[2016-07-29 12:44] LABS: ALB/GLOB RATIO 0.8 (1.1-1.8); BILIRUBIN,TOTAL 0.8 mg/dL (0.2-1.3); CALCIUM 8.6 mg/dL (8.4-10.5); MAGNESIUM 2.3 mg/dL (1.7-2.2); POTASSIUM 3.5 mmol/L (3.6-5.0); TOTAL PROTEIN 7.5 g/dL (5.8-8.3)
[2016-07-29 12:52] LABS: BASO # 0.05 K/mm3 (0.0-2.0); BASO % 2.2 % (0.0-3.0); EOS # 0.1 (0.0-0.7); EOS % 6.1 % (1.5-5.0); GRAN # 1.37 (1.4-6.5); GRAN % 59.5 % (50.0-68.0); HEMATOCRIT 33.4 % (42.0-52.0); LYMPH # 0.5 (1.2-3.4); LYMPH % 21.3 % (22.0-35.0); MEAN CORPUSCULAR HEMOGLOBIN 30.2 pg (25.0-35.0); MEAN CORPUSCULAR HGB CONC 34.7 g/dl (31.0-37.0); MONO # 0.3 (0.1-0.6); MONO % 10.9 % (1.0-6.0); PLATELET COUNT 89 10^3/uL (120.0-450.0)
[2016-07-29 12:58] LABS: WHITE BLOOD COUNT 2.3 10^3/ul (4.5-11.0)
[2016-07-29] MEDS: POLYETHYLENE GLYCOL 3350 17 GM/Dose PACKET PO SCH ×2 (12:59→17:29)
--- NOTE | 2016-07-29 16:07 | CP.PCM.CON ---
History of Present Illness - History of Present Illness History of Present Illness: 75 year old male with PMH of HTN, DM, dyslipidemia, ESRD on HD, renal cancer S/ P partial nephrectomy was initially admitted for weakness and lethargy. Work up was done which revealed possible hemochromatosis as noted on MRI of the abdomen. Sepsis work up was done which in non-revelatory. He is now transferred to [facility] for continued medical therapy and physical rehabilitation. Infectious Diseases consult is requested to evaluate if the patient needs antibiotic therapy. Currently the patient is comfortable in bed, not in distress, on dialysis, no fever or chills, no nausea or vomiting, no cough or colds, no chest pain, no SOB, no abdominal pain, no diarrhea, no dysuria. Review of Systems - Review of Systems All systems: reviewed and no additional remarkable complaints except (as per HPI ) Past Patient History - Infectious Disease Hx of Infectious Diseases: None - Tetanus Immunizations Tetanus Immunization: Unknown - Past Medical History & Family History Past Medical History?: Yes Past Family History: Reviewed and not pertinent - Past Social History Smoking Status: Former Smoker Alcohol: None Drugs: Denies - CARDIAC Hx Cardiac Disorders: Yes Hx Hypertension: Yes - PULMONARY Hx Respiratory Disorders: No Hx Chronic Obstructive Pulmonary Disease (COPD): No - NEUROLOGICAL Hx Neurological Disorder: No Hx Alzheimer's Disease: No HX Cerebrovascular Accident: No Hx Dementia: No Hx Dizziness: No Hx Meningitis: No Hx Migraine: No Hx Parkinson's Disease: No Hx Seizures: No Hx Transient Ischemic Attacks (TIA): No - HEENT Hx HEENT Problems: No (WEARS RX GLASSES) Hx Blind: No Hx Cataracts: No Hx Deafness: No Hx Difficulty Chewing: No Hx Epistaxis: No Hx Glaucoma: No Hx Macular Degeneration: No - RENAL Hx Chronic Kidney Disease: Yes Hx Renal Failure: Yes (HD (//Sun)) - ENDOCRINE/METABOLIC Hx Endocrine Disorders: Yes Hx Diabetes Mellitus Type 1: No Hx Diabetes Mellitus Type 2: Yes Hx Hypothyroidism: No - HEMATOLOGICAL/ONCOLOGICAL Hx Blood Disorders: Yes - INTEGUMENTARY Hx Dermatological Problems: Yes (Bullous pemphigoid) Hx Basil Cell: No Hx Eczema: No Hx Melanoma: No Hx Psoriasis: No Hx Squamous Cell: No - MUSCULOSKELETAL/RHEUMATOLOGICAL Hx Falls: Yes - GASTROINTESTINAL Hx Gastrointestinal Disorders: Yes (CONSTIPATION) - GENITOURINARY/GYNECOLOGICAL Hx Genitourinary Disorders: Yes (OLIGURIA,ESRD ON HEDMODIALYSIS) Hx Reproductive Disorders: No - PSYCHIATRIC Hx Psychophysiologic Disorder: No Hx Emotional Abuse: No Hx Physical Abuse: No - SURGICAL HISTORY Hx Amputation: No Hx Appendectomy: No Hx Cardiac Catheterization: No Hx Cholecystectomy: No Hx Coronary Stent: No Hx Gastric Bypass Surgery: No Hx Hysterectomy: No Hx Joint Replacement: No Hx Kidney Transplant: No Hx Liver Transplant: No Hx Mastectomy: No Hx Musculoskeletal Surgery: No Hx Open Heart Surgery: No Hx Orthopedic Surgery: No Hx Splenectomy: No Hx Valve Replacement: No - ANESTHESIA Hx Anesthesia Reactions: No Hx Malignant Hyperthermia: No Meds Allergies/Adverse Reactions: Allergies Allergy/AdvReac Type Severity Reaction Status Date / Time No Known Allergies Allergy Verified 07/28/16 17:31 - Medications Medications: Current Medications Acetaminophen (Tylenol 325mg Tab) 650 mg PO Q6H PRN; Protocol PRN Reason: Fever >100.4 F Amlodipine Besylate (Norvasc) 10 mg PO DAILY [facility] PRN Reason: Protocol Aspirin (Ecotrin) 325 mg PO 0800 [facility] PRN Reason: Protocol Calcium Acetate (Phoslo) 667 mg PO WM [facility] Docusate Sodium (Colace) 100 mg PO BID [facility] PRN Reason: Protocol Last Admin: 07/28/16 18:49 Dose: 100 mg Donepezil HCl (Aricept) 10 mg PO HS [facility] PRN Reason: Protocol Last Admin: 07/28/16 21:30 Dose: 10 mg Gabapentin (Neurontin) 100 mg PO Q8 [facility] PRN Reason: Protocol Last Admin: 07/28/16 21:29 Dose: 100 mg Heparin Sodium (Porcine) (Heparin) 5,000 units SC Q12 [facility] PRN Reason: Protocol Last Admin: 07/28/16 21:30 Dose: 5,000 units Meropenem 500 mg/ Sodium (Chloride) 100 mls @ 100 mls/hr IVPB Q24H [facility] PRN Reason: Protocol Stop: 08/01/16 10:01 Last Admin: 07/28/16 19:10 Dose: 100 mls/hr Insulin Human Regular (Humulin R Low) 0 units SC ACHS [facility] PRN Reason: Protocol Last Admin: 07/28/16 21:29 Dose: Not Given Pantoprazole Sodium (Protonix Ec Tab) 20 mg PO 0630 [facility] PRN Reason: Protocol Pentoxifylline (Pentoxil) 400 mg PO Q8 [facility] Last Admin: 07/28/16 21:29 Dose: 400 mg Polyethylene Glycol (Miralax) 17 gm PO BID [facility] PRN Reason: Protocol Last Admin: 07/28/16 18:53 Dose: 17 gm Pregabalin (Lyrica) 50 mg PO BID [facility] PRN Reason: Protocol Last Admin: 07/28/16 18:52 Dose: 50 mg Valsartan (Diovan) 320 mg PO DAILY [facility] PRN Reason: Protocol Physical Exam - Constitutional Appears: Non-toxic, No Acute Distress - Head Exam Head Exam: NORMAL INSPECTION - Neck Exam Neck exam: Negative for: Lymphadenopathy, Meningismus - Respiratory Exam Respiratory Exam: Decreased Breath Sounds - Cardiovascular Exam Cardiovascular Exam: +S1, +S2 - GI/Abdominal Exam GI & Abdominal Exam: Soft. absent: Tenderness Results - Vital Signs Recent Vital Signs: Last Vital Signs Temp 98.1 F 07/28/16 21:21 Pulse 69 07/28/16 21:21 Resp 18 07/28/16 21:21 BP 177/68 H 07/28/16 21:21 Pulse Ox - Labs Result Diagrams: 07/29/16 12:30 07/29/16 12:30 Assessment & Plan - Assessment and Plan (Free Text) Plan: Assessment S/P Systemic Inflammatory Response Syndrome; no evidence of sepsis identified Possible hemochromatosis DM dyslipidemia ESRD on HD renal cancer S/P partial nephrectomy Plan blood cx are negative; PCT was only 0.26; CXR still shows the upper lobe calcified granulomas (unchanged from previous admission) but no focal consolidation or infiltrate; rapid Influenza test is negative; reviewed MRI abdomen which shows possible hemochromatosis - follow up GI and Heme plans Will continue to monitor off antibiotics since he is at risk for nosocomial infections
[2016-07-29] MEDS: Meropenem 500 MG in Sodium Chloride 0.9% 100 ML IVPB SCH (17:27)
--- NOTE | 2016-07-30 04:32 | CON ---
DATE: 07/29/2016 The patient is currently in [facility] [[email or web address]] room 327, bed 2. REASON FOR CONSULTATION: Evaluation for right renal mass, possibly consistent with a renal cell carc inoma, on the background history of having had surgery for renal cell carcinoma. HISTORY OF PRESENT ILLNESS: This is a 75-year-old man with a history of hypertension, diabetes, hype rcholesterolemia, end-stage renal disease on hemodialysis, history of renal cell cancer, history of p artial nephrectomy, was admitted to [facility] frequently, 2 times before, because of fev er. Denies any cough, shortness of breath. He is on antibiotics and follows up with Dr. Huitron, the infectious disease specialist. The patient was also complaining of some abdominal discomfort, more o f a constipation than pain, was evaluated and assessed by Dr. Huber and workup ensued. In the wor kup, the patient had a scan of his abdomen and pelvis, which showed calcifications in the pancreas. 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 On the CT scan of the abdomen, there is a hyperintense lesion measuring at least 2.5 cm in the midpole, and there i s another lesion in the lower pole of the right kidney, which has to be ascertained to make sure this is not recurrence of the renal cell carcinoma. The patient also has a history of hep B, for which h e was on medications with Viread and was under the supervision of , now currently being foll owed by Dr. Huber. The patient also has been treated in the past for pemphigus with steroids unde r coverage with Viread. The patient's primary doctor in the past was Dr. Avila, but now being foll owed by Dr. Aguirre. SOCIAL HISTORY: The patient never smoked and never had any alcohol. He lives with his family. ALLERGIES: No known allergies. The patient is on dialysis 3 days a week, Tuesdays, , and Saturdays. He was on the acute si de being treated, now been transferred to the [facility] [[email or web address]] for deconditioning. On the MRCP of the abdomen ju st done the day before transfer, it reveals increased iron in both the liver and spleen consistent wi th increased iron stores. Whether this is hemosiderosis, hemochromatosis, we have to do some workup. The patient currently appears , not in any acute distress, on dialysis. Denies any history of fevers or chills, no nausea or vomiting, no shortness of breath, abdominal pain, diarrhea, or dysuri a. PHYSICAL EXAMINATION: GENERAL: The patient is awake, alert, and oriented. VITAL SIGNS: Reveals T-max to be 98.4, pulse is 69, respirations 18, blood pressure is 177/68. HEENT: Head is normocephalic, atraumatic. Temporal muscle wasting is noted. Examination of the suzanne pharynx reveals no oropharyngeal lesions. NECK: Supple. There is no adenopathy. LUNGS: Clear to percussion and auscultation. CARDIOVASCULAR: Reveals S1, S2 to be normal. No gallop or murmur is heard. ABDOMEN: Soft, nontender. Bowel sounds are present. The patient has an AV fistula on the left arm. NEUROLOGIC: are normal, no focal deficits are noted. LABORATORY DATA: From today was reviewed. White count is 2.3, with ANC of 1.47, hemoglobin 11.6, he matocrit 33, platelet count of 89,000. Sodium is 134, potassium 3.5, chloride 95, CO2 of 27, BUN 56, creatinine 5.7, glucose of 111. MEDICATIONS: The patient's medications were reviewed. He is currently on the following medications: Aricept 10 p.o. at bedtime, Colace 100 b.i.d., valsartan 320 daily, Ecotrin 325 mg daily, heparin s ubQ 5000 units, Lyrica 50 b.i.d., MiraLAX 17 grams b.i.d., gabapentin 100 mg p.o. q. 8 hours, Norvasc 10 mg daily, pentoxifylline 400 mg p.o. q. 8 hours, PhosLo 667 mg p.o. with meals, pantoprazole 20 m g p.o. daily and Tylenol as needed. The patient's antibiotics have been discontinued as of today. ASSESSMENT, NOTES AND PLAN: Definitely the CT scan of the abdomen is consistent with some abnormalit ies in the kidney. The patient is having early dementia, does not recall anything to do with the kid paul. I was instructed by Dr. Huber to speak to the primary caregiver, the daughter, to get some m ore information. I am also going to speak to Dr. Tavera, who knows the patient very well for the last several years, and one of the questions that I had with Dr. Huber on the list of medicines i s that he is not on at this time; should the patient be on it, I am going to check with him als o. In the meantime, in answer to at least the question that is raised on the MRCP, whether the patie nt has increased iron stores in the liver and spleen, we are going to order a total iron and iron sat urations and we will also check for hemochromatosis gene study to make sure he does not have increase d iron stores based on that. The patient is on ongoing dialysis and I do want to be encouraging unne cessary workup, but will talk to the family, specifically the daughter, to find out in which directio n she wants us to proceed. If the disease in the kidney turns out to be positive, options for the pa tient could include RF ablation to destroy the tumor, if it is nonmetastatic and just confined to the kidney. Urologic evaluation and input would be helpful. We will speak to Dr. Aguirre as well. Work up has been requested. Chiquita Jackson MD cc: [id number] TT: 07/30/2016 02:52:17 Confirmation # [id number] Dictation # [id number] vn 07/30/2016 03:32:07
[2016-07-30] MEDS: Pantoprazole 20 mg EC Tab PO SCH (05:39)
[2016-07-30] MEDS: Insulin Reg-LOW-Coverage SC SCH ×4 (06:34→22:00)
--- NOTE | 2016-07-30 08:00 | PN ---
DATE: 07/29/2016 This patient was seen and evaluated earlier. Discussed with the nursing staff. PHYSICAL EXAMINATION: VITAL SIGNS: Temperature is 98.6, pulse 54, blood pressure is 113/48. HEENT: Atraumatic, anicteric. NECK: Supple. HEART: S1, S2 heard. LUNGS: Bilateral air entry present. ABDOMEN: Soft. There is no tenderness. EXTREMITIES: No cyanosis, no clubbing. LABORATORY DATA: WBCs 2.3, hemoglobin 11.6, hematocrit 33.4, platelets 89. LFTs essentially unremarkable. 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 Admitted with sepsis. The exact cause could not be identified. He has been on antibiotics. The patient has been presently off the antibiotics, being followed by ID. The MRI scan was done to evaluate the pancreas, which showed possible hemochromatosis, no definitive pancreatic lesion was noticed, common bile duct measured only 8 mm, no evidence of common bile duct stone. Recommend to followup of the hep B DNA titers. The patient was on Viread 300 mg q. weekly in the past. I discussed with the patient's daughter at length in the past. Request for hemochromatosis genetic testing and also transferrin saturation to further evaluate. Thank you very much for allowing us to participate in the care of the patient. Liss Huber MD cc: [phone] TT: 07/30/2016 07:59:03 Confirmation # [id number] Dictation # [id number] en MTDD
[2016-07-30] MEDS: Aspirin 325 mg EC Tablets PO SCH (08:50)
[2016-07-30 08:51] LABS: IRON 33 ug/dL (45-180)
[2016-07-30] MEDS: POLYETHYLENE GLYCOL 3350 17 GM/Dose PACKET PO SCH ×2 (10:34→18:52)
--- NOTE | 2016-07-30 11:03 | PN ---
DATE: 07/30/2016 The patient is in bed, in no acute distress, nontoxic. PHYSICAL EXAMINATION: VITAL SIGNS: Temperature is 98, blood pressure is 140/60, respiratory rate 20. HEENT: Unremarkable. NECK: Supple. LUNGS: Have decreased breath sounds. HEART: Normal S1, S2. ABDOMEN: Soft, nontender. LABORATORY EXAMINATION: Reveals a white count of 2.3, hemoglobin of 11, platelets of 89. Chemistrie s reveal the BUN and 56, creatinine of 5.7. Review of the orders and medications are reviewed. ASSESSMENT AND PLAN: A 75-year-old male, seen earlier in room 327 with hypertension, diabetes, dysli pidemia, end-stage renal disease on hemodialysis, renal cancer, history of partial nephrectomy, who w as admitted with lethargy with systemic inflammatory response syndrome with no evidence of infection identified, possible hemochromatosis in the setting of diabetes, dyslipidemia, end-stage renal diseas e and renal cancer. Currently, culture is negative, normal procalcitonin and a calcified granuloma o n an x-ray and off of antibiotics and will follow closely with you. Ibrahima Lara MD cc: [phone] TT: 07/30/2016 11:02:36 Confirmation # [id number] Dictation # [id number] en
--- NOTE | 2016-07-30 21:49 | HP ---
DATE OF NOTE: 07/29/2016 The patient is a 75-year-old male who came in to transitional care unit for continuation of IV antibi otics and rehabilitation. HISTORY OF PRESENT ILLNESS: The patient was initially admitted to medical floor because of temperatu re 101. His blood culture was negative. The patient seen by ID, recommend IV vancomycin and meropen em. The patient's blood cultures negative. His chest x-ray shows no infiltrates. The patient was t reated empirically with IV antibiotics. He has no chest pain, no short of breath. He did have some left lower quadrant discomfort. CT of the abdomen did not reveal any diverticulitis or any intra-abd ominal infections. The patient's bowel movement is better, but still has problems. PAST MEDICAL HISTORY: As I mentioned before, he has chronic renal failure, diabetes, hypertension. SOCIAL HISTORY: The patient quit smoking years ago. He has a history of drinking only on the [employer]. FAMILY HISTORY: Noncontributory. ACTIVE MEDICATIONS: Currently, he is on Aricept 10 mg at bedtime, Colace 100 b.i.d., Diovan 320 mg p .o. daily, aspirin 325 mg p.o. daily, heparin subQ 5000 q. 12, insulin coverage low algorithm, Lyrica 50 mg b.i.d., MiraLax 17 grams p.o. b.i.d., Neurontin 100 mg p.o. q. 8 hours, Norvasc 10 mg p.o. jed ly, pentoxifylline 400 mg t.i.d., PhosLo 667 mg p.o. Sunday and Sunday, and Protonix 20 mg p.o. da karthik, Tylenol p.r.n. 650 q. 6 hours. PHYSICAL EXAMINATION: VITAL SIGNS: Temperature 98.6, heart rate 54, blood pressure 113/48, respirations 20, saturation 97% . HEAD AND NECK: Normal. No JVD, no thyromegaly. CHEST: Clear, good air entry. CARDIAC: First and second sounds are normal. ABDOMEN: Soft, nontender. EXTREMITIES: No edema. NEUROLOGIC: Normal. LABORATORY DATA: White count 2.3, hemoglobin 11.6, hematocrit 33.4, platelets 89, which is new. Yolanda kecia: Sodium 134, potassium 3.5, chloride 95, bicarbonate 27, BUN 56, creatinine 5.7, blood sugar 111, phosphorus 6, magnesium 2.3. Liver functions test is normal. The patient transferrin saturatio n is low at 151. IMPRESSION AND PLAN: 1. Fever. The patient has negative blood cultures. We will discuss with the ID consultation about continuation of antibiotics, meropenem IV. We will consult ID consult, Dr. Sukhi Huitron. 2. Chronic renal failure. Continue hemodialysis by nephrology consult. 3. Thrombocytopenia. Dr. Jackson hematology consult. We will follow up with him. 4. The patient has diabetes, hypertension, dementia. We will continue current medications and insul in coverage, will follow up clinically. Barber Aguirre MD cc: [phone] TT: 07/30/2016 21:49:14 id
--- NOTE | 2016-07-30 23:30 | PN ---
DATE: 07/30/2016 ADDENDUM This patient was seen and evaluated earlier. Denies any specific GI complaints. PHYSICAL EXAMINATION: GENERAL: He is tolerating the diet. VITAL SIGNS: Temperature 99, blood pressure is 120/90, pulse 100. HEENT: Atraumatic, anicteric. NECK: Supple. HEART: S1, S2 heard. LUNGS: Bilateral air entry present. ABDOMEN: Soft. There is no tenderness. EXTREMITIES: No cyanosis, no clubbing, no edema. LABORATORY DATA: The DNA was very high viral load of 170 million units. log greater than 8.23. Would review. DNA Mutation studies which is still pending. IMPRESSION: This 75-year-old patient with multiple comorbidities, end-stage renal disease on hemodialysis, renal cell carcinoma, status post partial nephrectomy, probably cirrhosis of the liver secondary to hepatitis B, appears to have a high viral load. Mutation study still pending. The patient was viread 300mg qw in the past. I Would recommend at this point,to review the completion of the mutation studies and also we will review the official report of the DNA studies before contemplating restarting the treatment for his hepatitis B. The other problems include, the patient has a history of chronic constipation and gastroparesis, diabetes mellitus, chronic pancreatitis. Recent MRI did not reveal any pancreatic mass. We will continue to closely follow and I have discussed with Dr. Jackson regarding the patient yesterday. Thank you very much for allowing us to participate in the care of the patient. Liss Huber MD cc: [phone] TT: 07/30/2016 23:30:09 Confirmation # [id number] Dictation # [id number] berkley HANSEN
[2016-07-31] MEDS: Pantoprazole 20 mg EC Tab PO SCH (05:53)
[2016-07-31] MEDS: Insulin Reg-LOW-Coverage SC SCH ×4 (06:35→22:42)
[2016-07-31] MEDS: Aspirin 325 mg EC Tablets PO SCH (09:45)
[2016-07-31] MEDS: POLYETHYLENE GLYCOL 3350 17 GM/Dose PACKET PO SCH ×2 (09:46→18:37)
--- NOTE | 2016-07-31 20:20 | CP.PCM.PN ---
Subjective - Date & Time of Evaluation Date of Evaluation: 07/31/16 Time of Evaluation: 14:00 - Subjective Subjective: Patient seen while in therapy; denies any complaints; no fevers/chills; Objective - Vital Signs/Intake and Output Vital Signs (last 24 hours): Temp Pulse Resp BP Pulse Ox 97.1 F L 50 L 15 128/60 97 07/31/16 16:00 07/31/16 16:00 07/31/16 16:00 07/31/16 16:00 07/31/16 16:00 - Medications Medications: Current Medications Acetaminophen (Tylenol 325mg Tab) 650 mg PO Q6H PRN; Protocol PRN Reason: Fever >100.4 F Amlodipine Besylate (Norvasc) 10 mg PO DAILY [facility] PRN Reason: Protocol Last Admin: 07/31/16 09:46 Dose: 10 mg Aspirin (Ecotrin) 325 mg PO 0800 [facility] PRN Reason: Protocol Last Admin: 07/31/16 09:45 Dose: 325 mg Calcium Acetate (Phoslo) 667 mg PO WM [facility] Last Admin: 07/31/16 18:37 Dose: 667 mg Docusate Sodium (Colace) 100 mg PO BID [facility] PRN Reason: Protocol Last Admin: 07/31/16 18:36 Dose: 100 mg Donepezil HCl (Aricept) 10 mg PO HS [facility] PRN Reason: Protocol Last Admin: 07/30/16 21:52 Dose: 10 mg Gabapentin (Neurontin) 100 mg PO Q8 [facility] PRN Reason: Protocol Last Admin: 07/31/16 13:15 Dose: 100 mg Heparin Sodium (Porcine) (Heparin) 5,000 units SC Q12 [facility] PRN Reason: Protocol Last Admin: 07/31/16 09:45 Dose: 5,000 units Insulin Human Regular (Humulin R Low) 0 units SC ACHS [facility] PRN Reason: Protocol Last Admin: 07/31/16 18:36 Dose: Not Given Pantoprazole Sodium (Protonix Ec Tab) 20 mg PO 0630 [facility] PRN Reason: Protocol Last Admin: 07/31/16 05:53 Dose: 20 mg Pentoxifylline (Pentoxil) 400 mg PO Q8 [facility] Last Admin: 07/31/16 13:51 Dose: 400 mg Polyethylene Glycol (Miralax) 17 gm PO BID [facility] PRN Reason: Protocol Last Admin: 07/31/16 18:37 Dose: 17 gm Pregabalin (Lyrica) 50 mg PO BID [facility] PRN Reason: Protocol Last Admin: 07/31/16 18:36 Dose: 50 mg Valsartan (Diovan) 320 mg PO DAILY [facility] PRN Reason: Protocol Last Admin: 07/31/16 09:44 Dose: 320 mg - Labs Labs: 07/29/16 12:30 07/29/16 12:30 - Constitutional Appears: Well, No Acute Distress - Head Exam Head Exam: NORMAL INSPECTION - Eye Exam Eye Exam: Normal appearance. absent: Scleral icterus - ENT Exam ENT Exam: Mucous Membranes Moist - Neck Exam Neck Exam: Normal Inspection - Respiratory Exam Respiratory Exam: Clear to Ausculation Bilateral, NORMAL BREATHING PATTERN - Cardiovascular Exam Cardiovascular Exam: REGULAR RHYTHM, +S1, +S2 - GI/Abdominal Exam GI & Abdominal Exam: Soft. absent: Distended, Tenderness - Extremities Exam Additional comments: No leg edema - Neurological Exam Neurological Exam: Alert, Awake - Psychiatric Exam Psychiatric exam: Normal Affect, Normal Mood - Skin Skin Exam: Warm. absent: Cyanosis Assessment and Plan (1) ESRD (end stage renal disease) on dialysis Assessment & Plan: Euvolemic by exam; labs stable; next HD session Sunday per routine with UF goal 2.5L; Status: Acute (2) HTN (hypertension) Assessment & Plan: Controlled on amlodpine and valsartan, continue same; Status: Acute (3) Hemochromatosis Assessment & Plan: Per abd MRI findings, however, level of ferritin elevation not uncharacteristic for dialysis patient; f/u with hematology; Status: Acute (4) Hyperphosphatemia Assessment & Plan: Much improved with phoslo 1 tab with meals, continue same dose; Status: Acute (5) Renal mass Assessment & Plan: L kidney calcified mass, and smaller R kidney mass; will likely need at least unilateral nephrectomy; will have urology f/u as outpatient Status: Acute (6) SIRS (systemic inflammatory response syndrome) Assessment & Plan: Resolved, off all antibiotics; unclear source of fever; monitor; Status: Acute (7) Hepatitis B Assessment & Plan: May need to restart outpatient treatment per GI; will need to dose meds for HD; Status: Chronic
[2016-08-01] MEDS: Pantoprazole 20 mg EC Tab PO SCH (05:46)
[2016-08-01] MEDS: Insulin Reg-LOW-Coverage SC SCH ×4 (06:46→22:11)
[2016-08-01] MEDS: Aspirin 325 mg EC Tablets PO SCH (08:27)
--- NOTE | 2016-08-01 11:13 | PN ---
DATE: 07/31/2016 SUBJECTIVE: A 75-year-old man in TCU. Patient seems to be doing better. He is comfortable. No chest pain, no short of breath. Eating okay. His speech is slow, but will get speech therapy to evaluate his speech. He is physically stable. No distress. PHYSICAL EXAMINATION: VITAL SIGNS: Temperature 97.4, heart rate 78, blood pressure 120/56, respirations 18, saturation 99%. HEAD AND NECK: Normal. No JVD, no thyromegaly. CHEST: Clear, good air entry. CARDIAC: First and second sounds are normal. ABDOMEN: Soft, nontender. EXTREMITIES: No edema. NEUROLOGIC: Normal. IMPRESSION AND PLAN: 1. Chronic renal failure. Continue renal dialysis, stable. 2. Generalized weakness. Continue physical therapy. 3. Fever. Cultures so far is negative. Seen by ID consult, Dr. Lara and Dr. Huitron. Currently, patient is off antibiotics. Will observe. 4. Hypertension, diabetes type 2. Continue insulin coverage. Follow up clinically. 5. renal mass, h/o renal ca, resected, oncology,urology consults. 6, dementia. Barber Aguirre MD cc: [phone] TT: 08/01/2016 11:12:23 Confirmation # [id number] Dictation # [id number] MTDD
[2016-08-01] MEDS: POLYETHYLENE GLYCOL 3350 17 GM/Dose PACKET PO SCH ×2 (11:54→19:04)
[2016-08-01 15:53] LABS: ADD MANUAL DIFF? NO
[2016-08-01 16:07] LABS: BASO # 0.02 K/mm3 (0.0-2.0); BASO % 0.5 % (0.0-3.0); EOS # 0.2 (0.0-0.7); GRAN # 2.31 (1.4-6.5); GRAN % 52.4 % (50.0-68.0); LYMPH # 1.4 (1.2-3.4); LYMPH % 31.6 % (22.0-35.0); MEAN CORPUSCULAR HEMOGLOBIN 29.6 pg (25.0-35.0); MEAN CORPUSCULAR HGB CONC 34.4 g/dl (31.0-37.0); MEAN PLATELET VOLUME 12.4 fl (7.0-11.0); MONO # 0.5 (0.1-0.6); MONO % 10.5 % (1.0-6.0); PLATELET COUNT 115 10^3/uL (120.0-450.0); WHITE BLOOD COUNT 4.4 10^3/ul (4.5-11.0)
[2016-08-01 16:14] LABS: ALB/GLOB RATIO 0.8 (1.1-1.8); BILIRUBIN,TOTAL 0.5 mg/dL (0.2-1.3); CALCIUM 9.1 mg/dL (8.4-10.5); MAGNESIUM 2.8 mg/dL (1.7-2.2); PHOSPHOROUS 7.1 mg/dL (2.5-4.5); POTASSIUM 4.6 mmol/L (3.6-5.0); TOTAL PROTEIN 7.7 g/dL (5.8-8.3)
--- NOTE | 2016-08-01 17:50 | CP.PCM.PN ---
Subjective - Date & Time of Evaluation Date of Evaluation: 07/31/16 Time of Evaluation: 09:35 - Subjective Subjective: Patient is comfortable in the bed, not in distress, no fevers overnight. Objective - Vital Signs/Intake and Output Vital Signs (last 24 hours): Temp Pulse Resp BP Pulse Ox 97.4 F L 48 L 18 145/55 L 99 07/31/16 10:00 07/31/16 10:00 07/31/16 10:00 07/31/16 10:00 07/31/16 10:00 - Medications Medications: Current Medications Acetaminophen (Tylenol 325mg Tab) 650 mg PO Q6H PRN; Protocol PRN Reason: Fever >100.4 F Amlodipine Besylate (Norvasc) 10 mg PO DAILY [facility] PRN Reason: Protocol Last Admin: 07/31/16 09:46 Dose: 10 mg Aspirin (Ecotrin) 325 mg PO 0800 [facility] PRN Reason: Protocol Last Admin: 07/31/16 09:45 Dose: 325 mg Calcium Acetate (Phoslo) 667 mg PO WM [facility] Last Admin: 07/31/16 13:16 Dose: 667 mg Docusate Sodium (Colace) 100 mg PO BID [facility] PRN Reason: Protocol Last Admin: 07/31/16 09:44 Dose: 100 mg Donepezil HCl (Aricept) 10 mg PO HS [facility] PRN Reason: Protocol Last Admin: 07/30/16 21:52 Dose: 10 mg Gabapentin (Neurontin) 100 mg PO Q8 [facility] PRN Reason: Protocol Last Admin: 07/31/16 13:15 Dose: 100 mg Heparin Sodium (Porcine) (Heparin) 5,000 units SC Q12 [facility] PRN Reason: Protocol Last Admin: 07/31/16 09:45 Dose: 5,000 units Insulin Human Regular (Humulin R Low) 0 units SC ACHS [facility] PRN Reason: Protocol Last Admin: 07/31/16 13:14 Dose: Not Given Pantoprazole Sodium (Protonix Ec Tab) 20 mg PO 0630 [facility] PRN Reason: Protocol Last Admin: 07/31/16 05:53 Dose: 20 mg Pentoxifylline (Pentoxil) 400 mg PO Q8 [facility] Last Admin: 07/31/16 13:51 Dose: 400 mg Polyethylene Glycol (Miralax) 17 gm PO BID [facility] PRN Reason: Protocol Last Admin: 07/31/16 09:46 Dose: 17 gm Pregabalin (Lyrica) 50 mg PO BID [facility] PRN Reason: Protocol Last Admin: 07/31/16 09:46 Dose: 50 mg Valsartan (Diovan) 320 mg PO DAILY [facility] PRN Reason: Protocol Last Admin: 07/31/16 09:44 Dose: 320 mg - Labs Labs: 07/29/16 12:30 07/29/16 12:30 - Constitutional Appears: Non-toxic, No Acute Distress - Head Exam Head Exam: NORMAL INSPECTION - Neck Exam Neck Exam: absent: Lymphadenopathy, Meningismus - Respiratory Exam Respiratory Exam: Decreased Breath Sounds - Cardiovascular Exam Cardiovascular Exam: +S1, +S2 - GI/Abdominal Exam GI & Abdominal Exam: Soft. absent: Tenderness Assessment and Plan - Assessment and Plan (Free Text) Plan: Assessment S/P Systemic Inflammatory Response Syndrome; no evidence of sepsis identified Possible hemochromatosis DM dyslipidemia ESRD on HD renal cancer S/P partial nephrectomy Plan Will continue to monitor off antibiotics since he is at risk for nosocomial infections
[2016-08-02] MEDS: Pantoprazole 20 mg EC Tab PO SCH (06:04)
[2016-08-02] MEDS: Insulin Reg-LOW-Coverage SC SCH ×4 (07:11→22:50)
[2016-08-02] MEDS: Aspirin 325 mg EC Tablets PO SCH (08:41)
[2016-08-02] MEDS: POLYETHYLENE GLYCOL 3350 17 GM/Dose PACKET PO SCH ×2 (11:00→17:40)
--- NOTE | 2016-08-02 13:50 | PN ---
DATE: 08/01/2016 This patient seems is doing better on dialysis. He does have dementia. On interview, he has no ches t pain, no short of breath, but he does not know exactly where he is and what year it is. Otherwise, he seems comfortable, no distress, no physical distress. No short of breath, no chest pain. Eating well, moved his bowels. PHYSICAL EXAMINATION: On 08/01/2016: VITAL SIGNS: Temperature 97.2, heart rate 48, blood pressure 116/53, respirations 18, saturating 99% on room air. HEAD AND NECK: Normal. No JVD. No thyromegaly. CHEST: Clear, good air entry. CARDIAC: First sound, second sound normal. ABDOMEN: Soft, obese, nontender. EXTREMITIES: No edema. The patient has also shunt on his upper extremities. NEUROLOGIC: Normal. LABORATORY DATA: White count 4.4, hemoglobin 11, hematocrit 32, platelet is 115. His sodium 134, po tassium 4.6, chloride 93, bicarbonate 23, BUN 98, creatinine 8.2. The patient has phosphorus 7.1 and magnesium is 2.8. Liver enzymes are normal. IMPRESSION AND PLAN: This is a 75-year-old male, renal failure, thrombocytopenia, history of renal c ancer, doing better. We will continue current therapy. 1. Chronic renal failure. Continue hemodialysis. Follow up with Dr. Tavera. 2. History of chronic hepatitis B, possible liver cirrhosis. We will talk with Dr. Liss son bout any further treatment. 3. Dementia, seems stable, no distress. Continue Aricept 10 mg at night. 4. Hypertension, diabetes. Continue Diovan, continue insulin coverage and to continue current medic ations. 5. Peripheral neuropathy, chronic constipation, on MiraLax, Lyrica, seems stable. Continue aspirin, Colace and Protonix 20 mg p.o. daily. 6. Renal mass, past history of renal carcinoma. Will possibly get urology consult, Dr. Dupree. Also, Dr. Jackson, oncology consult discussed with him in detail. The patient may benefit from these 2 co nsults to evaluate the renal mass and thrombocytopenia whether further workup needs to be done on him to evaluate for any recurrent cancer. Continue current therapy. We will discuss further with the other consultants. Barber Aguirre MD cc: [phone] TT: 08/02/2016 13:49:06 Confirmation # [id number] Dictation # [id number] en
--- NOTE | 2016-08-02 16:11 | CP.PCM.PN ---
Subjective - Date & Time of Evaluation Date of Evaluation: 08/01/16 Time of Evaluation: 17:30 - Subjective Subjective: Denies any complaints; left ankle not painful on ambulation; no fevers/chills; Objective - Vital Signs/Intake and Output Vital Signs (last 24 hours): Temp Pulse Resp BP Pulse Ox 97.4 F L 50 L 18 158/66 H 94 L 08/02/16 10:00 08/02/16 11:00 08/02/16 10:00 08/02/16 11:00 08/02/16 10:00 Intake and Output: 08/02/16 08/02/16 06:59 18:59 Intake Total 420 Balance 420 - Medications Medications: Current Medications Acetaminophen (Tylenol 325mg Tab) 650 mg PO Q6H PRN; Protocol PRN Reason: Fever >100.4 F Amlodipine Besylate (Norvasc) 10 mg PO DAILY [facility] PRN Reason: Protocol Last Admin: 08/02/16 11:00 Dose: 10 mg Aspirin (Ecotrin) 325 mg PO 0800 [facility] PRN Reason: Protocol Last Admin: 08/02/16 08:41 Dose: 325 mg Calcium Acetate (Phoslo) 667 mg PO WM [facility] Last Admin: 08/02/16 12:28 Dose: 667 mg Docusate Sodium (Colace) 100 mg PO BID [facility] PRN Reason: Protocol Last Admin: 08/02/16 11:00 Dose: 100 mg Donepezil HCl (Aricept) 10 mg PO HS [facility] PRN Reason: Protocol Last Admin: 08/01/16 22:11 Dose: 10 mg Gabapentin (Neurontin) 100 mg PO Q8 [facility] PRN Reason: Protocol Last Admin: 08/02/16 14:38 Dose: 100 mg Heparin Sodium (Porcine) (Heparin) 5,000 units SC Q12 [facility] PRN Reason: Protocol Last Admin: 08/02/16 11:00 Dose: 5,000 units Insulin Human Regular (Humulin R Low) 0 units SC ACHS [facility] PRN Reason: Protocol Last Admin: 08/02/16 12:29 Dose: Not Given Pantoprazole Sodium (Protonix Ec Tab) 20 mg PO 0630 [facility] PRN Reason: Protocol Last Admin: 08/02/16 06:04 Dose: 20 mg Polyethylene Glycol (Miralax) 17 gm PO BID [facility] PRN Reason: Protocol Last Admin: 08/02/16 11:00 Dose: 17 gm Pregabalin (Lyrica) 50 mg PO BID [facility] PRN Reason: Protocol Last Admin: 08/02/16 11:00 Dose: 50 mg Valsartan (Diovan) 320 mg PO DAILY [facility] PRN Reason: Protocol Last Admin: 08/02/16 11:00 Dose: 320 mg - Labs Labs: 08/01/16 14:50 08/01/16 14:50 - Constitutional Appears: Well, No Acute Distress - Head Exam Head Exam: NORMAL INSPECTION - Eye Exam Eye Exam: Normal appearance. absent: Scleral icterus - ENT Exam ENT Exam: Mucous Membranes Moist - Neck Exam Neck Exam: Normal Inspection - Respiratory Exam Respiratory Exam: Clear to Ausculation Bilateral, NORMAL BREATHING PATTERN - Cardiovascular Exam Cardiovascular Exam: REGULAR RHYTHM, +S1, +S2 - GI/Abdominal Exam GI & Abdominal Exam: Soft. absent: Distended, Tenderness - Extremities Exam Additional comments: No leg edema; - Neurological Exam Neurological Exam: Alert, Awake - Psychiatric Exam Psychiatric exam: Normal Affect, Normal Mood - Skin Skin Exam: Normal Color, Warm Assessment and Plan (1) ESRD (end stage renal disease) on dialysis Assessment & Plan: Seen on HD, getting regularly scheduled session per routine today; next HD on ; Status: Chronic (2) HTN (hypertension) Assessment & Plan: Controlled, continue valsartan and amlodipine; Status: Acute (3) Hemochromatosis Assessment & Plan: Per MRI findings but iron stores not suggestive of this diagnosis; per onc, additional testing ordered; also needs hemochromatosis gene study which is a send out; Status: Acute (4) Hyperphosphatemia Assessment & Plan: Phos binders just restarted, continue; Status: Acute (5) Renal mass Assessment & Plan: s/p partial nephrectomy; has his own urologist, needs f/u for possible nephrectomy v radiofrequency ablation per oncology; Status: Acute (6) SIRS (systemic inflammatory response syndrome) Assessment & Plan: Resolved, all cultures negative; Status: Resolved (7) Hepatitis B Assessment & Plan: May need to restart treatment, needs to f/u as outpatient with GI; Status: Chronic
--- NOTE | 2016-08-02 23:06 | PN ---
DATE: 08/02/2016 The patient is stable, comfortable, no distress, no new complaints. PHYSICAL EXAMINATION: Temperature 97.4, heart rate in the 50s, blood pressure 158/66, respirations 18, and saturating 94% o n room air. HEAD AND NECK EXAMINATION: Normal. No JVD, no thyromegaly. CHEST EXAMINATION: Clear, good entry. CARDIAC: First sound, second sound normal. ABDOMEN: Soft, nontender. EXTREMITIES: No edema. NEUROLOGICALLY: Normal. LABORATORY STUDY: White count 4.4, hemoglobin 11, hematocrit 32, platelets 115. Chemistry: Sodium 134, potassium 4.6, chloride 93, bicarbonate 23, BUN 98, creatinine 8.2. Blood sugar 119. IMPRESSION AND PLAN: 1. Chronic renal failure. Continue hemodialysis. Dr. Kaur will taking care of that. 2. Calcified renal mass. Urology consult, Dr. Dupree. Will get Dr. Jed Griffith for further evaluation s. Discussed with Dr. Jackson 3. Thrombocytopenia, stable. Will monitor her platelets. 4. Diabetes, hypertension, hypercholesterolemia, chronic hepatitis B, liver cirrhosis. Continue current management. Continue physical therapy. Follow up clinically. Barber Aguirre MD cc: [phone] TT: 08/02/2016 23:05:38 Confirmation # [id number] Dictation # [id number] jn
--- NOTE | 2016-08-03 03:56 | PN ---
DATE: 08/02/2016 SUBJECTIVE: This patient was seen and evaluated earlier. The patient is comfortable, tolerating the diet. PHYSICAL EXAMINATION: VITAL SIGNS: Temperature is 97.4. The pulse is 50, blood pressure 158/66, respirations 18. HEENT: Atraumatic, anicteric. NECK: Supple. HEART: S1, S2 heard. LUNGS: Bilateral air entry present. ABDOMEN: Soft. There is no mass palpable. No tenderness. LABORATORY DATA: WBC yesterday was 4.4, hemoglobin 11, hematocrit 32, platelets 115. Creatinine to 8.2 yesterday. His LFTs are normal. IMPRESSION: This is a 75-year-old patient with renal cell carcinoma, status post partial nephrectomy , history of cirrhosis of the liver secondary to hepatitis B, very high viral load. The patient has end-stage renal disease on hemodialysis on 300 mg q. weekly regimen for hep B, but he is not pr esently taking it. poorly compliant patient with the followup, and the decision was to whether considering restarting the . The patient's labs have been sent. We will try to get the reports of then we will consider starting the regimen. His other comorbidities include diabetes melli tus, gastroparesis, chronic constipation. Thank you very much for allowing us to participate in the care of the patient. Liss Huber MD cc: [phone] TT: 08/03/2016 03:56:10 Confirmation # [id number] Dictation # [id number] tn
[2016-08-03] MEDS: Pantoprazole 20 mg EC Tab PO SCH (06:17)
[2016-08-03] MEDS: Insulin Reg-LOW-Coverage SC SCH ×4 (06:32→23:50)
--- NOTE | 2016-08-03 08:12 | CP.PCM.PN ---
Subjective - Date & Time of Evaluation Date of Evaluation: 08/01/16 Time of Evaluation: 11:30 - Subjective Subjective: Seen and examined at bedside earlier today in TCU. No new complaints, having formed stool. No bleeding, abdominal pain. Tolerating oral intake. Objective - Vital Signs/Intake and Output Vital Signs (last 24 hours): Temp Pulse Resp BP Pulse Ox 97.2 F L 48 L 18 116/53 L 99 08/01/16 06:00 08/01/16 06:00 08/01/16 06:00 08/01/16 06:00 08/01/16 06:00 - Medications Medications: Current Medications Acetaminophen (Tylenol 325mg Tab) 650 mg PO Q6H PRN; Protocol PRN Reason: Fever >100.4 F Amlodipine Besylate (Norvasc) 10 mg PO DAILY [facility] PRN Reason: Protocol Last Admin: 08/01/16 11:52 Dose: Not Given Aspirin (Ecotrin) 325 mg PO 0800 [facility] PRN Reason: Protocol Last Admin: 08/01/16 08:27 Dose: 325 mg Calcium Acetate (Phoslo) 667 mg PO WM [facility] Last Admin: 08/01/16 12:30 Dose: 667 mg Docusate Sodium (Colace) 100 mg PO BID [facility] PRN Reason: Protocol Last Admin: 08/01/16 11:45 Dose: Not Given Donepezil HCl (Aricept) 10 mg PO HS [facility] PRN Reason: Protocol Last Admin: 07/31/16 21:23 Dose: 10 mg Gabapentin (Neurontin) 100 mg PO Q8 [facility] PRN Reason: Protocol Last Admin: 08/01/16 13:17 Dose: 100 mg Heparin Sodium (Porcine) (Heparin) 5,000 units SC Q12 [facility] PRN Reason: Protocol Last Admin: 08/01/16 11:53 Dose: Not Given Insulin Human Regular (Humulin R Low) 0 units SC ACHS [facility] PRN Reason: Protocol Last Admin: 08/01/16 12:30 Dose: Not Given Pantoprazole Sodium (Protonix Ec Tab) 20 mg PO 0630 [facility] PRN Reason: Protocol Last Admin: 08/01/16 05:46 Dose: 20 mg Pentoxifylline (Pentoxil) 400 mg PO Q8 [facility] Last Admin: 08/01/16 13:18 Dose: 400 mg Polyethylene Glycol (Miralax) 17 gm PO BID [facility] PRN Reason: Protocol Last Admin: 08/01/16 11:54 Dose: Not Given Pregabalin (Lyrica) 50 mg PO BID [facility] PRN Reason: Protocol Last Admin: 08/01/16 11:53 Dose: Not Given Valsartan (Diovan) 320 mg PO DAILY [facility] PRN Reason: Protocol Last Admin: 08/01/16 11:47 Dose: Not Given - Labs Labs: 07/29/16 12:30 07/29/16 12:30 - Constitutional Appears: No Acute Distress - Head Exam Head Exam: NORMOCEPHALIC - Eye Exam Eye Exam: Normal appearance. absent: Scleral icterus - ENT Exam ENT Exam: Mucous Membranes Moist - Neck Exam Neck Exam: Normal Inspection - Respiratory Exam Respiratory Exam: Clear to Ausculation Bilateral, NORMAL BREATHING PATTERN. absent: Respiratory Distress - Cardiovascular Exam Cardiovascular Exam: +S1, +S2 - GI/Abdominal Exam GI & Abdominal Exam: Soft, Normal Bowel Sounds. absent: Guarding, Tenderness, Rebound - Neurological Exam Neurological Exam: Alert, Awake, Oriented x3 Assessment and Plan - Assessment and Plan (Free Text) Assessment: ASSESSMENT: ESRD on dialysis Renal cell carcinoma, s/p partial nephrectomy Improved constipation Chronic Hepatitis C with elevated viral load Gastroparesis DM Chronic pancreatitis, s/p MRCP that negative for pancreatic mass PLAN: continue bowel regemine, on Miralax BID continue PPI diet as tolerated contemplate restarting treatment for hepatitis C Seen and discussed with Dr. Huber.
[2016-08-03] MEDS: Aspirin 325 mg EC Tablets PO SCH (08:38)
[2016-08-03] MEDS: POLYETHYLENE GLYCOL 3350 17 GM/Dose PACKET PO SCH ×2 (10:18→17:23)
[2016-08-03 11:32] LABS: HEMATOCRIT 29.1 % (42.0-52.0); MEAN CELL VOLUME 86.6 fL (80.0-105.0); MEAN CORPUSCULAR HEMOGLOBIN 29.2 pg (25.0-35.0); MEAN CORPUSCULAR HGB CONC 33.7 g/dl (31.0-37.0); PLATELET COUNT 116 10^3/uL (120.0-450.0); RED CELL DISTRIBUTION WIDTH 14.3 % (11.5-14.5); WHITE BLOOD COUNT 4.7 10^3/ul (4.5-11.0)
[2016-08-03 11:49] LABS: ALB/GLOB RATIO 0.8 (1.1-1.8); BILIRUBIN,TOTAL 0.4 mg/dL (0.2-1.3); CALCIUM 9.2 mg/dL (8.4-10.5); MAGNESIUM 2.5 mg/dL (1.7-2.2); PHOSPHOROUS 6.1 mg/dL (2.5-4.5); POTASSIUM 4.1 mmol/L (3.6-5.0); TOTAL PROTEIN 7.2 g/dL (5.8-8.3)
--- NOTE | 2016-08-03 12:05 | CP.PCM.PN ---
Subjective - Date & Time of Evaluation Date of Evaluation: 08/02/16 Time of Evaluation: 18:00 - Subjective Subjective: Patient reports no complaints, no fevers/chills, doesn't know anything about his renal mass or prior urology f/u; Objective - Vital Signs/Intake and Output Vital Signs (last 24 hours): Temp Pulse Resp BP Pulse Ox 97.4 F L 50 L 18 158/66 H 94 L 08/02/16 10:00 08/02/16 11:00 08/02/16 10:00 08/02/16 11:00 08/02/16 10:00 - Medications Medications: Current Medications Acetaminophen (Tylenol 325mg Tab) 650 mg PO Q6H PRN; Protocol PRN Reason: Fever >100.4 F Amlodipine Besylate (Norvasc) 10 mg PO DAILY [facility] PRN Reason: Protocol Last Admin: 08/03/16 10:18 Dose: Not Given Aspirin (Ecotrin) 325 mg PO 0800 [facility] PRN Reason: Protocol Last Admin: 08/03/16 08:38 Dose: 325 mg Calcium Acetate (Phoslo) 1,334 mg PO WM [facility] Last Admin: 08/03/16 08:38 Dose: 1,334 mg Docusate Sodium (Colace) 100 mg PO BID [facility] PRN Reason: Protocol Last Admin: 08/03/16 10:17 Dose: Not Given Donepezil HCl (Aricept) 10 mg PO HS [facility] PRN Reason: Protocol Last Admin: 08/02/16 22:50 Dose: 10 mg Gabapentin (Neurontin) 100 mg PO Q8 [facility] PRN Reason: Protocol Last Admin: 08/03/16 06:17 Dose: 100 mg Heparin Sodium (Porcine) (Heparin) 5,000 units SC Q12 [facility] PRN Reason: Protocol Last Admin: 08/03/16 10:18 Dose: Not Given Insulin Human Regular (Humulin R Low) 0 units SC ACHS [facility] PRN Reason: Protocol Last Admin: 08/03/16 06:32 Dose: Not Given Pantoprazole Sodium (Protonix Ec Tab) 20 mg PO 0630 [facility] PRN Reason: Protocol Last Admin: 08/03/16 06:17 Dose: 20 mg Polyethylene Glycol (Miralax) 17 gm PO BID [facility] PRN Reason: Protocol Last Admin: 08/03/16 10:18 Dose: Not Given Pregabalin (Lyrica) 50 mg PO BID [facility] PRN Reason: Protocol Last Admin: 08/03/16 10:18 Dose: Not Given Valsartan (Diovan) 320 mg PO DAILY [facility] PRN Reason: Protocol Last Admin: 08/03/16 10:17 Dose: Not Given - Labs Labs: 08/03/16 11:26 08/01/16 14:50 - Constitutional Appears: Well, No Acute Distress - Head Exam Head Exam: NORMAL INSPECTION - Eye Exam Eye Exam: Normal appearance. absent: Scleral icterus - ENT Exam ENT Exam: Mucous Membranes Moist - Neck Exam Neck Exam: Normal Inspection - Respiratory Exam Respiratory Exam: Clear to Ausculation Bilateral, NORMAL BREATHING PATTERN - Cardiovascular Exam Cardiovascular Exam: REGULAR RHYTHM, +S1, +S2 - GI/Abdominal Exam GI & Abdominal Exam: Soft. absent: Distended, Tenderness - Extremities Exam Additional comments: no leg edema - Neurological Exam Neurological Exam: Alert, Awake - Psychiatric Exam Psychiatric exam: Normal Affect, Normal Mood - Skin Skin Exam: Normal Color, Warm Assessment and Plan (1) ESRD (end stage renal disease) on dialysis Assessment & Plan: Euvolemic on exam, stable electrolyte status, next HD scheduled for tomorrow per routine; Status: Chronic (2) HTN (hypertension) Assessment & Plan: Controlled, continue amlodipine and valsartan; Status: Acute (3) Hemochromatosis Assessment & Plan: Per liver findings on MRI although ferritin not very elevated; f/u with hematology; Status: Acute (4) Hyperphosphatemia Assessment & Plan: Phoslo increased to 2 tabs tid with meals, monitor; Status: Acute (5) Renal mass Assessment & Plan: Bilateral renal masses with interval changes since previous CT in 2011; needs urology f/u (will discuss with primary attending and supervisor electrolytic tinning regarding prior workup); Status: Acute (6) Hepatitis B Assessment & Plan: f/u with GI for possible inititation of treatment; Status: Chronic
--- NOTE | 2016-08-03 13:24 | PN ---
DATE: 08/03/2016 Seen and examined at the bedside earlier. Seen and examined in dialysis. The patient denies any nausea, vomiting, or abdominal pain. He is moving his bowels. No reports of any overt GI bleed. VITAL SIGNS: Temperature is 97.4, blood pressure is 158/66, pulse is 50, respirations 18, 94 on room air. LABORATORY DATA: WBC is 4.7, H and H is 9.8 and 29.1, platelets 116. Chem: Sodium 134, K is 4.1, BUN 78, creatinine is 6.6, mag is 2.5. LFTs are within normal limits. PHYSICAL EXAMINATION: HEENT: Sclerae are anicteric. NECK: Supple. CARDIAC: S1, S2. LUNGS: With decreased breath sounds, but good aeration. No rales or wheeze. ABDOMEN: With bowel sounds, soft, nontender on palpation. No rebound or guarding. ASSESSMENT: This is a 75-year-old male with a history of renal cell carcinoma, status post partial nephrectomy and history of liver cirrhosis secondary to chronic hepatitis C with high viral load. He also has end-stage renal disease on hemodialysis. The patient is not presently taking any medications for his hep C. The patient is poorly compliant. His other comorbidities are diabetes mellitus, gastroparesis and chronic constipation which has improved. PLAN: Still waiting for hepatitis C mutation studies and then follow this up and make a decision regarding restarting treatment. Monitor patient's H and H. We will request stool for guaiac. The patient is on stool softeners, is on aspirin and getting heparin subQ q. 12. Continue Protonix and MiraLax. The patient was seen and case discussed with Dr. Huber. Chanel UBRNS cc: [id number] TT: 08/03/2016 13:23:18 Confirmation # [id number] Dictation # [id number] HANSEN
--- NOTE | 2016-08-03 22:40 | CP.PCM.PN ---
Subjective - Date & Time of Evaluation Date of Evaluation: 08/03/16 Time of Evaluation: 17:00 - Subjective Subjective: Denies any complaints; no sob, no pain; Objective - Vital Signs/Intake and Output Vital Signs (last 24 hours): Temp Pulse Resp BP Pulse Ox 97.3 F L 50 L 19 132/72 96 08/03/16 10:00 08/03/16 10:00 08/03/16 10:00 08/03/16 10:00 08/03/16 10:00 - Medications Medications: Current Medications Acetaminophen (Tylenol 325mg Tab) 650 mg PO Q6H PRN; Protocol PRN Reason: Fever >100.4 F Amlodipine Besylate (Norvasc) 10 mg PO DAILY [facility] PRN Reason: Protocol Last Admin: 08/03/16 10:18 Dose: Not Given Aspirin (Ecotrin) 325 mg PO 0800 [facility] PRN Reason: Protocol Last Admin: 08/03/16 08:38 Dose: 325 mg Calcium Acetate (Phoslo) 1,334 mg PO [facility] Last Admin: 08/03/16 17:24 Dose: 1,334 mg Docusate Sodium (Colace) 100 mg PO BID [facility] PRN Reason: Protocol Last Admin: 08/03/16 17:21 Dose: 100 mg Donepezil HCl (Aricept) 10 mg PO HS [facility] PRN Reason: Protocol Last Admin: 08/02/16 22:50 Dose: 10 mg Gabapentin (Neurontin) 100 mg PO Q8 [facility] PRN Reason: Protocol Last Admin: 08/03/16 13:43 Dose: Not Given Heparin Sodium (Porcine) (Heparin) 5,000 units SC Q12 [facility] PRN Reason: Protocol Last Admin: 08/03/16 10:18 Dose: Not Given Insulin Human Regular (Humulin R Low) 0 units SC ACHS [facility] PRN Reason: Protocol Last Admin: 08/03/16 17:22 Dose: 1 units Pantoprazole Sodium (Protonix Ec Tab) 20 mg PO 0630 [facility] PRN Reason: Protocol Last Admin: 08/03/16 06:17 Dose: 20 mg Polyethylene Glycol (Miralax) 17 gm PO BID [facility] PRN Reason: Protocol Last Admin: 08/03/16 17:23 Dose: 17 gm Pregabalin (Lyrica) 50 mg PO BID [facility] PRN Reason: Protocol Last Admin: 08/03/16 17:22 Dose: Not Given Valsartan (Diovan) 320 mg PO DAILY [facility] PRN Reason: Protocol Last Admin: 08/03/16 10:17 Dose: Not Given - Labs Labs: 08/03/16 11:26 08/03/16 11:26 - Constitutional Appears: Well, No Acute Distress - Head Exam Head Exam: NORMAL INSPECTION - Eye Exam Eye Exam: Normal appearance. absent: Scleral icterus - ENT Exam ENT Exam: Mucous Membranes Moist - Neck Exam Neck Exam: Normal Inspection - Respiratory Exam Respiratory Exam: Clear to Ausculation Bilateral, NORMAL BREATHING PATTERN - Cardiovascular Exam Cardiovascular Exam: REGULAR RHYTHM, +S1, +S2 - GI/Abdominal Exam GI & Abdominal Exam: Soft. absent: Distended, Tenderness - Extremities Exam Extremities Exam: Normal Capillary Refill Additional comments: no leg edema - Neurological Exam Neurological Exam: Alert, Awake - Psychiatric Exam Psychiatric exam: Normal Affect, Normal Mood - Skin Skin Exam: Warm. absent: Cyanosis Assessment and Plan (1) ESRD (end stage renal disease) on dialysis Assessment & Plan: HD today uneventful, next for Sunday; Status: Chronic (2) HTN (hypertension) Assessment & Plan: controlled, continue current meds; Status: Acute (3) Hemochromatosis Assessment & Plan: Awaiting further studies but appears unlikely given only modestly elevated ferritin, f/u with heme/onc; Status: Acute (4) Hyperphosphatemia Assessment & Plan: On increased dose of phoslo, monitor; Status: Acute (5) Renal mass Assessment & Plan: Needs outpatient urology f/u; will obtain previous w/o; Status: Acute (6) Hepatitis B Assessment & Plan: Should f/u with GI as outpatient; Status: Chronic
--- NOTE | 2016-08-04 02:19 | PN ---
DATE: 08/03/2016 SUBJECTIVE: The patient getting dialysis, is comfortable, no distress. According to the patient, do es not remember any history of renal cancer. He has significant dementia, but he is comfortable phys ically, in no distress, getting dialysis. PHYSICAL EXAMINATION: VITAL SIGNS: Temperature 97.3, heart rate is 87, blood pressure 115/63, respiration 18, saturation 9 6%. HEAD AND NECK: Normal. No JVD, no thyromegaly. CHEST: Clear, good air entry. CARDIAC: First and second sounds are normal. ABDOMEN: Soft, nontender. EXTREMITIES: No edema. NEUROLOGIC: Normal. IMPRESSION AND PLAN: 1. Chronic renal failure. Continue hemodialysis. 2. History of renal cell carcinoma with evidence of calcified mass. Will consider urology and interv entional radiology evaluations. 3. Anemia, diabetes, hypertension, chronic hepatitis B, liver cirrhosis. Plan is to continue curren t treatment. Follow up with Dr. Huber regarding hepatitis B treatment. 4. Dementia, stable. Continue Aricept. The patient clinically comfortable. Will follow up with anh ham other consultants. Barber Aguirre MD cc: [phone] TT: 08/04/2016 02:18:50 Confirmation # [id number] Dictation # [id number] [email or web address]
[2016-08-04] MEDS: Pantoprazole 20 mg EC Tab PO SCH (05:48)
[2016-08-04] MEDS: Insulin Reg-LOW-Coverage SC SCH ×4 (06:50→22:20)
[2016-08-04 07:55] LABS: ADD MANUAL DIFF? NO
[2016-08-04 08:03] LABS: BASO # 0.02 K/mm3 (0.0-2.0); BASO % 0.4 % (0.0-3.0); EOS # 0.2 (0.0-0.7); EOS % 3.2 % (1.5-5.0); GRAN # 3.38 (1.4-6.5); GRAN % 60.1 % (50.0-68.0); LYMPH # 1.2 (1.2-3.4); LYMPH % 20.8 % (22.0-35.0); MEAN CELL VOLUME 87.9 fL (80.0-105.0); MEAN CORPUSCULAR HEMOGLOBIN 29.1 pg (25.0-35.0); MEAN CORPUSCULAR HGB CONC 33.1 g/dl (31.0-37.0); MEAN PLATELET VOLUME 12.9 fl (7.0-11.0); MONO # 0.9 (0.1-0.6); MONO % 15.5 % (1.0-6.0); PLATELET COUNT 101 10^3/uL (120.0-450.0); RED CELL DISTRIBUTION WIDTH 14.3 % (11.5-14.5); WHITE BLOOD COUNT 5.6 10^3/ul (4.5-11.0)
[2016-08-04] MEDS: Aspirin 325 mg EC Tablets PO SCH (08:39)
[2016-08-04] MEDS: POLYETHYLENE GLYCOL 3350 17 GM/Dose PACKET PO SCH ×2 (10:12→18:30)
--- NOTE | 2016-08-04 23:57 | CP.PCM.PN ---
Subjective - Date & Time of Evaluation Date of Evaluation: 08/04/16 Time of Evaluation: 09:50 - Subjective Subjective: Comfortable in bed, not in distress. No fevers. Objective - Vital Signs/Intake and Output Vital Signs (last 24 hours): Temp Pulse Resp BP Pulse Ox 98.3 F 71 20 126/54 L 90 L 08/04/16 15:56 08/04/16 15:56 08/04/16 15:56 08/04/16 15:56 08/04/16 15:56 Intake and Output: 08/04/16 08/05/16 18:59 06:59 Intake Total 480 Balance 480 - Medications Medications: Current Medications Acetaminophen (Tylenol 325mg Tab) 650 mg PO Q6H PRN; Protocol PRN Reason: Fever >100.4 F Amlodipine Besylate (Norvasc) 10 mg PO DAILY [facility] PRN Reason: Protocol Last Admin: 08/04/16 10:12 Dose: 10 mg Aspirin (Ecotrin) 325 mg PO 0800 [facility] PRN Reason: Protocol Last Admin: 08/04/16 08:39 Dose: 325 mg Calcium Acetate (Phoslo) 1,334 mg PO [facility] Last Admin: 08/04/16 18:31 Dose: 1,334 mg Docusate Sodium (Colace) 100 mg PO BID [facility] PRN Reason: Protocol Last Admin: 08/04/16 18:28 Dose: 100 mg Donepezil HCl (Aricept) 10 mg PO HS [facility] PRN Reason: Protocol Last Admin: 08/04/16 22:19 Dose: 10 mg Gabapentin (Neurontin) 100 mg PO Q8 [facility] PRN Reason: Protocol Last Admin: 08/04/16 22:20 Dose: 100 mg Heparin Sodium (Porcine) (Heparin) 5,000 units SC Q12 [facility] PRN Reason: Protocol Last Admin: 08/04/16 22:23 Dose: 5,000 units Insulin Human Regular (Humulin R Low) 0 units SC ACHS [facility] PRN Reason: Protocol Last Admin: 08/04/16 22:20 Dose: Not Given Pantoprazole Sodium (Protonix Ec Tab) 20 mg PO 0630 [facility] PRN Reason: Protocol Last Admin: 08/04/16 05:48 Dose: 20 mg Polyethylene Glycol (Miralax) 17 gm PO BID [facility] PRN Reason: Protocol Last Admin: 04/07/17 18:30 Dose: 17 gm Pregabalin (Lyrica) 50 mg PO BID [facility] PRN Reason: Protocol Last Admin: 08/04/16 18:30 Dose: 50 mg Valsartan (Diovan) 320 mg PO DAILY [facility] PRN Reason: Protocol Last Admin: 08/04/16 10:11 Dose: 320 mg - Labs Labs: 08/04/16 07:50 08/03/16 11:26 - Constitutional Appears: Non-toxic, No Acute Distress - Head Exam Head Exam: NORMAL INSPECTION - Neck Exam Neck Exam: absent: Lymphadenopathy, Meningismus - Respiratory Exam Respiratory Exam: Decreased Breath Sounds - Cardiovascular Exam Cardiovascular Exam: +S1, +S2 - GI/Abdominal Exam GI & Abdominal Exam: Soft. absent: Tenderness Assessment and Plan - Assessment and Plan (Free Text) Plan: Assessment S/P Systemic Inflammatory Response Syndrome; no evidence of sepsis identified Possible hemochromatosis DM dyslipidemia ESRD on HD renal cancer S/P partial nephrectomy Plan Will continue to monitor off antibiotics since he is at risk for hospital- acquired infections
[2016-08-05] MEDS: Pantoprazole 20 mg EC Tab PO SCH (06:08)
[2016-08-05] MEDS: Insulin Reg-LOW-Coverage SC SCH ×4 (06:51→22:04)
[2016-08-05] MEDS: Aspirin 325 mg EC Tablets PO SCH (08:47)
[2016-08-05] MEDS: POLYETHYLENE GLYCOL 3350 17 GM/Dose PACKET PO SCH ×2 (09:48→18:30)
--- NOTE | 2016-08-05 09:48 | CP.PCM.PN ---
Subjective - Date & Time of Evaluation Date of Evaluation: 08/04/16 Time of Evaluation: 10:30 - Subjective Subjective: Denies any complaints; no sob, fevers/chills; Objective - Vital Signs/Intake and Output Vital Signs (last 24 hours): Temp Pulse Resp BP Pulse Ox 98.3 F 71 20 126/54 L 90 L 08/04/16 15:56 08/04/16 15:56 08/04/16 15:56 08/04/16 15:56 08/04/16 15:56 Intake and Output: 08/05/16 08/05/16 06:59 18:59 Intake Total 480 Balance 480 - Medications Medications: Current Medications Acetaminophen (Tylenol 325mg Tab) 650 mg PO Q6H PRN; Protocol PRN Reason: Fever >100.4 F Amlodipine Besylate (Norvasc) 10 mg PO DAILY [facility] PRN Reason: Protocol Last Admin: 08/04/16 10:12 Dose: 10 mg Aspirin (Ecotrin) 325 mg PO 0800 [facility] PRN Reason: Protocol Last Admin: 08/05/16 08:47 Dose: 325 mg Calcium Acetate (Phoslo) 1,334 mg PO [facility] Last Admin: 08/05/16 08:47 Dose: 1,334 mg Docusate Sodium (Colace) 100 mg PO BID [facility] PRN Reason: Protocol Last Admin: 08/04/16 18:28 Dose: 100 mg Donepezil HCl (Aricept) 10 mg PO HS [facility] PRN Reason: Protocol Last Admin: 08/04/16 22:19 Dose: 10 mg Gabapentin (Neurontin) 100 mg PO Q8 [facility] PRN Reason: Protocol Last Admin: 08/05/16 06:08 Dose: 100 mg Heparin Sodium (Porcine) (Heparin) 5,000 units SC Q12 [facility] PRN Reason: Protocol Last Admin: 08/04/16 22:23 Dose: 5,000 units Insulin Human Regular (Humulin R Low) 0 units SC ACHS [facility] PRN Reason: Protocol Last Admin: 08/05/16 06:51 Dose: Not Given Pantoprazole Sodium (Protonix Ec Tab) 20 mg PO 0630 [facility] PRN Reason: Protocol Last Admin: 08/05/16 06:08 Dose: 20 mg Polyethylene Glycol (Miralax) 17 gm PO BID [facility] PRN Reason: Protocol Last Admin: 08/04/16 18:30 Dose: 17 gm Pregabalin (Lyrica) 50 mg PO BID [facility] PRN Reason: Protocol Last Admin: 08/04/16 18:30 Dose: 50 mg Valsartan (Diovan) 320 mg PO DAILY [facility] PRN Reason: Protocol Last Admin: 08/04/16 10:11 Dose: 320 mg - Labs Labs: 08/04/16 07:50 08/03/16 11:26 - Constitutional Appears: Well, No Acute Distress - Head Exam Head Exam: NORMAL INSPECTION - Eye Exam Eye Exam: Normal appearance. absent: Scleral icterus - ENT Exam ENT Exam: Mucous Membranes Moist - Neck Exam Neck Exam: Normal Inspection - Respiratory Exam Respiratory Exam: Clear to Ausculation Bilateral, NORMAL BREATHING PATTERN - Cardiovascular Exam Cardiovascular Exam: REGULAR RHYTHM, +S1, +S2 - GI/Abdominal Exam GI & Abdominal Exam: Soft. absent: Distended, Tenderness - Extremities Exam Additional comments: no leg edema - Neurological Exam Neurological Exam: Alert, Awake - Psychiatric Exam Psychiatric exam: Normal Affect, Normal Mood - Skin Skin Exam: Warm. absent: Cyanosis Assessment and Plan (1) ESRD (end stage renal disease) on dialysis Assessment & Plan: Euvolemic on exam, overall stable electrolyte status; next HD session tomorrow per routine; Status: Chronic (2) HTN (hypertension) Assessment & Plan: Controlled, continue current meds; Status: Acute (3) Hemochromatosis Assessment & Plan: Workup initiated due to liver findings on MRI; f/u with heme/onc; Status: Acute (4) Hyperphosphatemia Assessment & Plan: Improved, on phoslo 2 tabs with meals; patient doesn't recall if he was taking any binders at home; Status: Acute (5) Renal mass Assessment & Plan: Needs outpatient f/u for possible nephrectomy; will discuss with daughter regarding previous w/u and management; Status: Acute (6) Hepatitis B Assessment & Plan: GI following, for possible outpatient treatment; Status: Chronic
[2016-08-05 10:47] LABS: ADD MANUAL DIFF? NO
[2016-08-05 10:50] LABS: BASO # 0.03 K/mm3 (0.0-2.0); BASO % 0.5 % (0.0-3.0); EOS # 0.2 (0.0-0.7); EOS % 3.6 % (1.5-5.0); GRAN # 4.36 (1.4-6.5); GRAN % 68.3 % (50.0-68.0); HEMATOCRIT 27.1 % (42.0-52.0); LYMPH % 15.8 % (22.0-35.0); MEAN CELL VOLUME 86.9 fL (80.0-105.0); MEAN CORPUSCULAR HEMOGLOBIN 29.8 pg (25.0-35.0); MEAN CORPUSCULAR HGB CONC 34.3 g/dl (31.0-37.0); MEAN PLATELET VOLUME 11.4 fl (7.0-11.0); MONO # 0.8 (0.1-0.6); MONO % 11.8 % (1.0-6.0); PLATELET COUNT 98 10^3/uL (120.0-450.0); RED CELL DISTRIBUTION WIDTH 14.4 % (11.5-14.5); WHITE BLOOD COUNT 6.4 10^3/ul (4.5-11.0)
[2016-08-05 10:59] LABS: ALB/GLOB RATIO 0.8 (1.1-1.8); BILIRUBIN,TOTAL 0.4 mg/dL (0.2-1.3); CALCIUM 9.4 mg/dL (8.4-10.5); PHOSPHOROUS 4.5 mg/dL (2.5-4.5); POTASSIUM 4.7 mmol/L (3.6-5.0); TOTAL PROTEIN 7.1 g/dL (5.8-8.3)
[2016-08-05 13:13] VITALS: RESP 18
--- NOTE | 2016-08-05 14:37 | CP.PCM.PN ---
Subjective - Date & Time of Evaluation Date of Evaluation: 08/05/16 Time of Evaluation: 14:10 - Subjective Subjective: Comfortable in bed, not in distress, no fevers overnight. Objective - Vital Signs/Intake and Output Vital Signs (last 24 hours): Temp Pulse Resp BP Pulse Ox 97.9 F 54 L 18 139/56 L 99 08/05/16 10:00 08/05/16 10:00 08/05/16 10:00 08/05/16 10:00 08/05/16 10:00 Intake and Output: 08/05/16 08/05/16 06:59 18:59 Intake Total 480 Balance 480 - Medications Medications: Current Medications Acetaminophen (Tylenol 325mg Tab) 650 mg PO Q6H PRN; Protocol PRN Reason: Fever >100.4 F Amlodipine Besylate (Norvasc) 10 mg PO DAILY [facility] PRN Reason: Protocol Last Admin: 08/05/16 09:48 Dose: Not Given Aspirin (Ecotrin) 325 mg PO 0800 [facility] PRN Reason: Protocol Last Admin: 08/05/16 08:47 Dose: 325 mg Calcium Acetate (Phoslo) 1,334 mg PO WM [facility] Last Admin: 08/05/16 12:02 Dose: Not Given Docusate Sodium (Colace) 100 mg PO BID [facility] PRN Reason: Protocol Last Admin: 08/05/16 09:46 Dose: Not Given Donepezil HCl (Aricept) 10 mg PO HS [facility] PRN Reason: Protocol Last Admin: 08/04/16 22:19 Dose: 10 mg Gabapentin (Neurontin) 100 mg PO Q8 [facility] PRN Reason: Protocol Last Admin: 08/05/16 06:08 Dose: 100 mg Heparin Sodium (Porcine) (Heparin) 5,000 units SC Q12 [facility] PRN Reason: Protocol Last Admin: 08/05/16 10:00 Dose: Not Given Insulin Human Regular (Humulin R Low) 0 units SC ACHS [facility] PRN Reason: Protocol Last Admin: 08/05/16 12:02 Dose: Not Given Pantoprazole Sodium (Protonix Ec Tab) 20 mg PO 0630 [facility] PRN Reason: Protocol Last Admin: 08/05/16 06:08 Dose: 20 mg Polyethylene Glycol (Miralax) 17 gm PO BID [facility] PRN Reason: Protocol Last Admin: 08/05/16 09:48 Dose: Not Given Pregabalin (Lyrica) 50 mg PO BID [facility] PRN Reason: Protocol Last Admin: 08/05/16 09:48 Dose: 50 mg Valsartan (Diovan) 320 mg PO DAILY [facility] PRN Reason: Protocol Last Admin: 08/05/16 09:46 Dose: Not Given - Labs Labs: 08/05/16 10:45 08/05/16 10:45 - Constitutional Appears: Non-toxic, No Acute Distress - Head Exam Head Exam: NORMAL INSPECTION - ENT Exam ENT Exam: Mucous Membranes Moist - Neck Exam Neck Exam: absent: Lymphadenopathy, Meningismus - Respiratory Exam Respiratory Exam: Decreased Breath Sounds - Cardiovascular Exam Cardiovascular Exam: +S1, +S2 - GI/Abdominal Exam GI & Abdominal Exam: Soft. absent: Tenderness Assessment and Plan - Assessment and Plan (Free Text) Plan: Assessment S/P Systemic Inflammatory Response Syndrome; no evidence of sepsis identified Possible hemochromatosis DM dyslipidemia ESRD on HD renal cancer S/P partial nephrectomy Plan Will continue to monitor off antibiotics since he is at risk for healthcare- associated infections
[2016-08-05 16:28] LABS: ADD MANUAL DIFF? NO
[2016-08-05 16:32] LABS: BASO # 0.01 K/mm3 (0.0-2.0); BASO % 0.2 % (0.0-3.0); EOS # 0.2 (0.0-0.7); EOS % 2.7 % (1.5-5.0); GRAN # 4.07 (1.4-6.5); GRAN % 69.3 % (50.0-68.0); HEMATOCRIT 28.8 % (42.0-52.0); LYMPH % 16.9 % (22.0-35.0); MEAN CELL VOLUME 87.8 fL (80.0-105.0); MEAN CORPUSCULAR HEMOGLOBIN 29.6 pg (25.0-35.0); MEAN CORPUSCULAR HGB CONC 33.7 g/dl (31.0-37.0); MONO # 0.6 (0.1-0.6); MONO % 10.9 % (1.0-6.0); PLATELET COUNT 109 10^3/uL (120.0-450.0); RED CELL DISTRIBUTION WIDTH 14.4 % (11.5-14.5); WHITE BLOOD COUNT 5.9 10^3/ul (4.5-11.0)
--- NOTE | 2016-08-05 20:40 | CP.PCM.PN ---
Subjective - Date & Time of Evaluation Date of Evaluation: 08/05/16 Time of Evaluation: 14:00 - Subjective Subjective: No acute issues; Patient slightly confused. Oriented to self only. Denies any acute complaints. No fevers; chills; n/v; bowel/urinary complaints; headaches; vision changes; SOB ; CP; focal weakness Objective - Vital Signs/Intake and Output Vital Signs (last 24 hours): Temp Pulse Resp BP Pulse Ox 97.6 F 61 18 129/64 93 L 08/05/16 16:00 08/05/16 16:00 08/05/16 16:00 08/05/16 16:00 08/05/16 16:00 - Medications Medications: Current Medications Acetaminophen (Tylenol 325mg Tab) 650 mg PO Q6H PRN; Protocol PRN Reason: Fever >100.4 F Amlodipine Besylate (Norvasc) 10 mg PO DAILY [facility] PRN Reason: Protocol Last Admin: 08/05/16 09:48 Dose: Not Given Aspirin (Ecotrin) 325 mg PO 0800 [facility] PRN Reason: Protocol Last Admin: 08/05/16 08:47 Dose: 325 mg Calcium Acetate (Phoslo) 1,334 mg PO WM [facility] Last Admin: 08/05/16 18:00 Dose: 1,334 mg Docusate Sodium (Colace) 100 mg PO BID [facility] PRN Reason: Protocol Last Admin: 08/05/16 18:26 Dose: 100 mg Donepezil HCl (Aricept) 10 mg PO HS [facility] PRN Reason: Protocol Last Admin: 08/04/16 22:19 Dose: 10 mg Gabapentin (Neurontin) 100 mg PO Q8 [facility] PRN Reason: Protocol Last Admin: 08/05/16 18:28 Dose: Not Given Heparin Sodium (Porcine) (Heparin) 5,000 units SC Q12 [facility] PRN Reason: Protocol Last Admin: 08/05/16 10:00 Dose: Not Given Insulin Human Regular (Humulin R Low) 0 units SC ACHS [facility] PRN Reason: Protocol Last Admin: 08/05/16 17:30 Dose: 2 units Pantoprazole Sodium (Protonix Ec Tab) 20 mg PO 0630 [facility] PRN Reason: Protocol Last Admin: 08/05/16 06:08 Dose: 20 mg Polyethylene Glycol (Miralax) 17 gm PO BID [facility] PRN Reason: Protocol Last Admin: 08/05/16 18:30 Dose: 17 gm Pregabalin (Lyrica) 50 mg PO BID [facility] PRN Reason: Protocol Last Admin: 08/05/16 18:30 Dose: 50 mg Valsartan (Diovan) 320 mg PO DAILY [facility] PRN Reason: Protocol Last Admin: 08/05/16 09:46 Dose: Not Given - Labs Labs: 08/05/16 16:10 08/05/16 10:45 - Constitutional Appears: Well, Confused (appears oriented to person. But not sure of year and believes he is at home. Does not realize he is still at hospital though seems to be able to re-orietned quite easily), Other - Head Exam Head Exam: ATRAUMATIC, NORMAL INSPECTION, NORMOCEPHALIC - Respiratory Exam Respiratory Exam: Clear to Ausculation Bilateral, NORMAL BREATHING PATTERN - Cardiovascular Exam Cardiovascular Exam: Bradycardia - Extremities Exam Extremities Exam: Full ROM, Normal Capillary Refill, Normal Inspection. absent : Joint Swelling, Pedal Edema Assessment and Plan (1) Renal mass Status: Acute - Assessment and Plan (Free Text) Plan: Mr. Jerry clifton 75 y/o [place] with pmhx significant for HTN, DM, HLD, HBV, and ESRD on HD and renal cell ca s/p partial nephrectomy recently admitted with sepsis phyiology who is in TRCU completing abx course and found to have a 2.5cm midpose hyperintense lesion in the right kidny concerning for possible RCC. The patient would benefit from urology consult (in hospital or out patient) regarding need for possible re-biopsy vs repeat partial nephrectomy. He can also be followed in oncology clinic pending pathology. Davonte Jackson MD Oncology Service p: [phone]
--- NOTE | 2016-08-05 23:15 | PN ---
DATE: 08/05/2016 This patient was seen and evaluated earlier. The patient comfortable. Temperature 97.6, pulse is 61, blood pressure 129/64. HENT: Atraumatic. Anicteric. NECK: Supple. HEART: S1, S2 heard. LUNGS: Bilateral air entry present. ABDOMEN: Soft. There is no tenderness. EXTREMITIES: No cyanosis, no clubbing. LABORATORY DATA: Hemoglobin repeat one is 9.7, hematocrit 28.8, WBC 5.9, platelets 109, BUN 83, crea tinine 6.8. IMPRESSION: This is a 75-year-old patient with chronic hepatitis C, probable cirrhosis who is on Vir ead, which now he has been not taking it now. Was admitted with fever, sepsis syndrome empirically t reated with antibiotics. The patient improved, now off the antibiotics. Exact source unclear. The patient found to have a drop in hemoglobin from 11 to 9.8 on 08/03. Subsequently, the hemoglobin has been stable. The concern is that the stool for occult blood has been positive. has been stab le and explained. IMPRESSION: Renal cell carcinoma, status post partial nephrectomy in the past, end-stage renal disea se on hemodialysis. His other comorbidities include diabetes mellitus, gastroparesis, chronic constipation. RECOMMENDATIONS: 1. We checked with [employer]. There was no other further available. It appears to be an error in the printout. 2. There is a drop in hemoglobin from 11 to 9.7, but the stool for occult blood positive. Hemoglobi n has been stable now. The patient may require a GI workup, but no melena, no bright red blood per r ectum. I have discussed with Dr. Aguirre, who in turn discussed with the patient's daughter. The patient has dementia, forgetful of his medications and the recommendations and diagnosis. I am really concerned about restarting the Viread which in the past to take only once a week, b ut in view of this concerned about his complaints and also forgetfulness and dementia, there is a ris k of the patient not taking the medication correctly. It may be a reasonable thing to consider him f or subacute facility for his condition to be optimized and further evaluation. The patient is also on aspirin, and also subQ heparin. Will continue to closely follow up his care b y Dr. Saleeb. Other option to be considered is placing the patient in subacute facility to do furthe r optimization of his medical status. The patient can . Liss Huber MD cc: [phone] TT: 08/05/2016 23:15:09 Confirmation # [id number] Dictation # [id number]
--- NOTE | 2016-08-05 23:16 | CP.PCM.PN ---
Subjective - Date & Time of Evaluation Date of Evaluation: 08/05/16 Time of Evaluation: 13:00 - Subjective Subjective: Patient denies any complaints, no fevers/chills, sob; tolerating diet; Objective - Vital Signs/Intake and Output Vital Signs (last 24 hours): Temp Pulse Resp BP Pulse Ox 97.6 F 61 18 129/64 93 L 08/05/16 16:00 08/05/16 16:00 08/05/16 16:00 08/05/16 16:00 08/05/16 16:00 - Medications Medications: Current Medications Acetaminophen (Tylenol 325mg Tab) 650 mg PO Q6H PRN; Protocol PRN Reason: Fever >100.4 F Amlodipine Besylate (Norvasc) 10 mg PO DAILY [facility] PRN Reason: Protocol Last Admin: 08/05/16 09:48 Dose: Not Given Aspirin (Ecotrin) 325 mg PO 0800 [facility] PRN Reason: Protocol Last Admin: 08/05/16 08:47 Dose: 325 mg Calcium Acetate (Phoslo) 1,334 mg PO [facility] Last Admin: 08/05/16 18:00 Dose: 1,334 mg Docusate Sodium (Colace) 100 mg PO BID [facility] PRN Reason: Protocol Last Admin: 08/05/16 18:26 Dose: 100 mg Donepezil HCl (Aricept) 10 mg PO HS [facility] PRN Reason: Protocol Last Admin: 08/05/16 22:04 Dose: 10 mg Gabapentin (Neurontin) 100 mg PO Q8 [facility] PRN Reason: Protocol Last Admin: 08/05/16 22:04 Dose: 100 mg Heparin Sodium (Porcine) (Heparin) 5,000 units SC Q12 [facility] PRN Reason: Protocol Last Admin: 08/05/16 10:00 Dose: Not Given Insulin Human Regular (Humulin R Low) 0 units SC ACHS [facility] PRN Reason: Protocol Last Admin: 08/05/16 22:04 Dose: Not Given Pantoprazole Sodium (Protonix Ec Tab) 20 mg PO 0630 [facility] PRN Reason: Protocol Last Admin: 08/05/16 06:08 Dose: 20 mg Polyethylene Glycol (Miralax) 17 gm PO BID [facility] PRN Reason: Protocol Last Admin: 08/05/16 18:30 Dose: 17 gm Pregabalin (Lyrica) 50 mg PO BID [facility] PRN Reason: Protocol Last Admin: 08/05/16 18:30 Dose: 50 mg Valsartan (Diovan) 320 mg PO DAILY [facility] PRN Reason: Protocol Last Admin: 08/05/16 09:46 Dose: Not Given - Labs Labs: 08/05/16 16:10 08/05/16 10:45 - Constitutional Appears: Well, No Acute Distress - Head Exam Head Exam: NORMAL INSPECTION - Eye Exam Eye Exam: Normal appearance - ENT Exam ENT Exam: Mucous Membranes Moist - Neck Exam Neck Exam: Normal Inspection - Respiratory Exam Respiratory Exam: Clear to Ausculation Bilateral, NORMAL BREATHING PATTERN. absent: Rales, Rhonchi, Wheezes - Cardiovascular Exam Cardiovascular Exam: RRR, +S1, +S2 - GI/Abdominal Exam GI & Abdominal Exam: Soft. absent: Distended, Tenderness - Exam Exam: absent: Bladder Distension - Extremities Exam Additional comments: no leg edema Assessment and Plan (1) ESRD (end stage renal disease) on dialysis Assessment & Plan: Seen on HD today, tolerating UF, continue per routine; Status: Chronic (2) HTN (hypertension) Assessment & Plan: controlled, continue current meds; Status: Acute (3) Hemochromatosis Assessment & Plan: f/u heme workup; Status: Acute (4) Hyperphosphatemia Assessment & Plan: On higher dose of phos binder, monitor; Status: Acute (5) Renal mass Assessment & Plan: Per conversation with daughter today, was being followed by outpatient urologist with plans for regular monitoring; needs f/u once discharged; Status: Chronic (6) Hepatitis B Assessment & Plan: Per daughter, treated previously; f/u with GI as outpatient; Status: Chronic
[2016-08-06] MEDS: Pantoprazole 20 mg EC Tab PO SCH (05:46)
[2016-08-06] MEDS: Insulin Reg-LOW-Coverage SC SCH ×4 (07:02→22:41)
[2016-08-06] MEDS: POLYETHYLENE GLYCOL 3350 17 GM/Dose PACKET PO SCH ×2 (10:53→18:10)
--- NOTE | 2016-08-06 13:32 | CP.PCM.PN ---
Subjective - Date & Time of Evaluation Date of Evaluation: 08/06/16 Time of Evaluation: 12:15 - Subjective Subjective: Comfortable in bed, not in distress, no fevers overnight. Objective - Vital Signs/Intake and Output Vital Signs (last 24 hours): Temp Pulse Resp BP Pulse Ox 98 F 61 18 158/64 H 94 L 08/06/16 10:00 08/06/16 10:55 08/06/16 10:00 08/06/16 10:55 08/06/16 10:00 - Medications Medications: Current Medications Acetaminophen (Tylenol 325mg Tab) 650 mg PO Q6H PRN; Protocol PRN Reason: Fever >100.4 F Amlodipine Besylate (Norvasc) 10 mg PO DAILY [place] PRN Reason: Protocol Last Admin: 08/06/16 10:55 Dose: 10 mg Aspirin (Ecotrin) 325 mg PO 0800 [place] PRN Reason: Protocol Last Admin: 08/05/16 08:47 Dose: 325 mg Calcium Acetate (Phoslo) 1,334 mg PO WM [facility] Last Admin: 08/06/16 12:51 Dose: 1,334 mg Docusate Sodium (Colace) 100 mg PO BID [place] PRN Reason: Protocol Last Admin: 08/06/16 10:51 Dose: 100 mg Donepezil HCl (Aricept) 10 mg PO HS [place] PRN Reason: Protocol Last Admin: 08/05/16 22:04 Dose: 10 mg Gabapentin (Neurontin) 100 mg PO Q8 [place] PRN Reason: Protocol Last Admin: 08/06/16 13:13 Dose: 100 mg Heparin Sodium (Porcine) (Heparin) 5,000 units SC Q12 [facility] PRN Reason: Protocol Last Admin: 08/05/16 10:00 Dose: Not Given Insulin Human Regular (Humulin R Low) 0 units SC ACHS [place] PRN Reason: Protocol Last Admin: 08/06/16 12:30 Dose: Not Given Pantoprazole Sodium (Protonix Ec Tab) 20 mg PO 0630 [place] PRN Reason: Protocol Last Admin: 08/06/16 05:46 Dose: 20 mg Polyethylene Glycol (Miralax) 17 gm PO BID [place] PRN Reason: Protocol Last Admin: 08/06/16 10:53 Dose: 17 gm Pregabalin (Lyrica) 50 mg PO BID [place] PRN Reason: Protocol Last Admin: 08/06/16 10:53 Dose: 50 mg Valsartan (Diovan) 320 mg PO DAILY [place] PRN Reason: Protocol Last Admin: 08/06/16 10:56 Dose: 320 mg - Labs Labs: 08/05/16 16:10 08/05/16 10:45 - Constitutional Appears: Non-toxic, No Acute Distress - Head Exam Head Exam: NORMAL INSPECTION - ENT Exam ENT Exam: Mucous Membranes Moist - Neck Exam Neck Exam: absent: Lymphadenopathy, Meningismus - Respiratory Exam Respiratory Exam: Decreased Breath Sounds - Cardiovascular Exam Cardiovascular Exam: +S1, +S2 - GI/Abdominal Exam GI & Abdominal Exam: Soft. absent: Tenderness Assessment and Plan - Assessment and Plan (Free Text) Plan: Assessment S/P Systemic Inflammatory Response Syndrome; no evidence of sepsis identified Possible hemochromatosis DM dyslipidemia ESRD on HD renal cancer S/P partial nephrectomy Plan Will continue to monitor off antibiotics since he is at risk for nosocomial infections
--- NOTE | 2016-08-06 16:10 | PN ---
DATE: 08/06/2016 The patient on dialysis unit, comfortable. No chest pain, no short of breath. He has no new complai nt. PHYSICAL EXAMINATION: VITAL SIGNS: Temperature 98.3, heart rate 71, blood pressure 126/54, respirations 20, saturation is 99% on room air. HEAD AND NECK: Normal. No JVD, no thyromegaly. CHEST: Clear, good air entry. CARDIAC: First sound, second sound normal. ABDOMEN: Soft, obese, nontender. EXTREMITIES: No edema. NEUROLOGIC: He is normal, except for being a little bit disoriented and occasionally confused and he has memory lapse consistent with history of dementia. IMPRESSION: 1. The patient currently in TCU for generalized weakness and deconditioning. Continue physical therapist apy. 2. Chronic renal failure. Continue hemodialysis. 3. Hyperintense lesions on the right kidney, concerning for renal cell carcinoma. Dr. Dupree, urology consult, has been ordered; however, still waiting for him. Also, I appreciate consult, Dr. Landy jett. Continue followup with them. 4. Chronic hepatitis B. Spoke with Dr. Huber about the patient's treatment. There is a big conc renuka about whether patient should be released home and how he is going to care for himself and medicat ions and other stuff. Continue current treatment. Continue follow up, probably as outpatient, his [facility] nursing home doctor, Dr. Arslan Bo. Will try to arrange for followup. PLAN: Continue current treatment. We will discuss with the daughter. LABORATORY STUDIES: On 08/04 is as follows: White count 5.6, hemoglobin 9.6, hematocrit 29, platelet s 101. Chemistry shows blood sugar 132 and 146 range. Barber Aguirre MD cc: [phone] TT: 08/06/2016 16:09:37 Confirmation # [id number] Dictation # [id number] en
--- NOTE | 2016-08-06 16:22 | PN ---
DATE: 08/05/2016 The patient in TCU. Question about discharging patient home. Discussion with the daughter about the plan of care. The patient at this time, he is clinically stable, but he still his memory is impaire d and in no distress at this time. PHYSICAL EXAMINATION: VITAL SIGNS: Temperature is 97.9, heart rate 54, blood pressure 139/56, respirations 18, saturating 99% on room air. HEAD AND NECK: Normal. No JVD, no thyromegaly. CHEST: Clear, good air entry. CARDIAC: First sound, second sound normal. ABDOMEN: Soft, nontender. EXTREMITIES: No edema. NEUROLOGIC: Normal except for memory impairment, dementia, consistent with dementia. LABORATORY DATA: Sodium 132, potassium 4.7, chloride 95, bicarbonate 27, BUN 83, creatinine 6.8, blo od sugar 174, calcium 9.4, phosphorus 4.5. His CBC noted for white count 6.4, hemoglobin 9.3, hemato crit 27.1, platelets 98. The patient also had repeat CBC, which showed hemoglobin 9.7, which is slig htly higher, and hematocrit 28.8, which is high. The patient always runs hemoglobin 11-10 range. Th ere is no active bleeding. The patient does also have positive stool guaiac. IMPRESSION AND PLAN: 1. Generalized weakness. Continue physical therapy. The patient placement is discussed with the see brown and I expressed to her it is unsafe to be at home by himself. Possibility for residential pl acement or rehab for 4 weeks. We will continue to do that. The [facility] is a good place for re hab with hemodialysis. Discussed with his daughter and with Dr. Huber on 08/05/2016. He will give us input, but he seems to agree with the plan. 2. Anemia, guaiac positive stools. GI, [facility], and he recommended needs a GI workup as outpatient . He will also get in touch with the daughter for further workup. Stable at this time. Continue Pr otonix. 3. Chronic renal failure. Continue hemodialysis. 4. Hypertension, diabetes, hypercholesterolemia. Continue current medication. 5. Chronic hep C. put patient back on medications. Her viral load is high and whether patien t would be compliant. 6. Renal cell mass, possibility may need a biopsy. Discussed with the daughter. We will follow up as outpatient. CURRENT MEDICATIONS: Aricept 10 mg at night, Colace 100 mg b.i.d., Diovan 320 mg once a day, aspirin 325 mg. We will hold it because of bleeding and also heparin subQ, we hold it because of positive g uaiac. Continue insulin, Lyrica 50 mg twice a day, MiraLax 17 b.i.d., Neurontin 100 p.o. t.i.d., Nor vasc 10 mg once a day, PhosLo 2 tabs Sunday and Sunday, Protonix 20 p.o. daily and Tylenol p.r.n. Continue current treatment. Barber Aguirre MD cc: [phone] TT: 08/06/2016 16:21:35 Confirmation # [id number] Dictation # [id number] en
[2016-08-07] MEDS: Pantoprazole 20 mg EC Tab PO SCH (05:59)
[2016-08-07] MEDS: Insulin Reg-LOW-Coverage SC SCH ×4 (07:07→22:44)
[2016-08-07] MEDS: POLYETHYLENE GLYCOL 3350 17 GM/Dose PACKET PO SCH ×2 (10:21→17:34)
[2016-08-07 10:24] VITALS: BP 123/57; PULSE 53
[2016-08-07 13:15] VITALS: TEMP 97.9; O2SAT 100
--- NOTE | 2016-08-07 14:19 | PN ---
DATE: 08/07/2016 Seen and examined at the bedside earlier today. Denies any nausea, vomiting, or abdominal pain. No reports of any acute overnight events or any overt GI bleed. The patient reports he is tolerating oral intake and is having bowel movements, does not notice any bleeding. VITAL SIGNS: Temperature 97.9, blood pressure 123/57, pulse 53, respirations 18 , 100% on room air. No new labs done today. We did an ammonia level. It was less than 9. PHYSICAL EXAMINATION: HEENT: Sclerae anicteric. NECK: Supple. CARDIAC: S1, S2. LUNG SOUNDS: With decreased breath sounds, but good aeration. ABDOMEN: With bowel sounds, soft, nontender, no rebound or guarding. ASSESSMENT: This is a 75-year-old male with history of end-stage renal disease on dialysis, history of renal cancer with history of partial nephrectomy. Admitted with fever, sepsis syndrome, empirically treated with antibiotics, has history of chronic hepatitis C. The patient was on Viread in the past, but has not been taking this. The patient was noted to have drop in hemoglobin. He is guaiac positive. His hemoglobin has remained stable. He also has gastroparesis , chronic constipation, diabetes mellitus. RECOMMENDATION: Continue to monitor patient's H and H. So far, the hemoglobin has been stable. The patient may require GI workup. We will continue to monitor, to follow closely. There is a concern regarding restarting Viread, which the patient was taking at least once a week, but patient with history of forgetfulness and dementia, risk of patient not being compliant with medication could pose increased risk. Discussion with Dr. Aguirre. Clinically the patient is doing ok, for now, we will not start the patient on any treatment for the chronic hepatitis C. The patient did have high viral load. We will continue patient's bowel regimen. He is on Colace. He is getting MiraLax b.i.d. Monitor stools. Continue Protonix. His aspirin is currently on hold. The patient was seen and case discussed with Dr. Huber. Chanel BURNS cc: [id number] TT: 08/07/2016 14:17:55 Confirmation # [id number] Dictation # [id number] en MTDD
--- NOTE | 2016-08-07 14:38 | PN ---
DATE: 08/07/2016 ADDENDUM This is an addendum to the GI progress report dictated by Chanel Schulz NP. The patient is now being evaluated for subacute care. The patient has poor insight to the medications. The patient may need be started on Viread for higher level, but on the other hand, compliance from the patient is the real question. The patient also requested for ammonia level. PHYSICAL EXAMINATION: ABDOMEN: Soft. No tenderness. The patient is anemic with slight drop in hemoglobin and guaiac positive. We will follow up the CBC. Thank you very much for allowing us to participate in the patient. Liss Huber MD cc: [id number] TT: 08/07/2016 14:38:05 Confirmation # [id number] Dictation # [id number] en
--- NOTE | 2016-08-07 21:52 | PN ---
DATE: 08/07/2016 Nephrology followup note. A 75-year-old male with history of ESRD on hemodialysis, hypertension, renal mass, and previously juanpablo gnosed hepatitis B, admitted with SIRS, subsequently discharged to TCU. The patient seen this nnamdi moore Reports feeling well. Denies any shortness of breath. Tolerating diet, ambulating well. VITAL SIGNS: This morning, blood pressure 123/57, heart rate 53, respirations 18, temperature 97.9, O2 sat 100% on room air. PHYSICAL EXAMINATION: GENERAL: No distress. Speaking coherently in full sentences. HEENT: Moist mucous membranes. Nonicteric. CHEST: Clear to auscultation bilaterally. No rales. No rhonchi. No wheezes. HEART: S1, S2 positive. No murmurs. No gallops. No rubs. ABDOMEN: Soft, nontender, nondistended. EXTREMITIES: No leg edema. LABORATORY DATA: No new labs since past 2 days. ASSESSMENT: 1. End-stage renal disease on hemodialysis. Last dialysis 2 days ago per routine. The patient with stable volume status on exam. Next dialysis tomorrow per routine. 2. Hypertension, controlled. Currently on amlodipine 10 mg daily and valsartan 320 mg daily. Shanique nue the same. 3. Hyperphosphatemia. Improved on PhosLo 2 tablets 3 times daily with meals. Continue the same. 4. Anemia with iron studies consistent with iron deficiency. Received darbepoetin 40 mcg last week. Intravenous iron not initially started due to ongoing workup for sepsis as patient shows no signs o f bacteremia. We will initiate IV iron. 5. Renal mass. The patient was being followed by outpatient urologist. Needs followup once dischar ged. 6. Hepatitis B. Being monitored by gastroenterology, who has written in their note that patient wit h history of dementia, it may not be reliable candidate for taking hepatitis B treatment. Vincent Garcia MD cc: [id number] TT: 08/07/2016 21:52:29 Confirmation # [id number] Dictation # [id number] tn
--- NOTE | 2016-08-07 23:08 | PN ---
DATE: 08/07/2016 SUBJECTIVE: The patient in bed in no acute distress, seen earlier this morning. PHYSICAL EXAMINATION: VITAL SIGNS: Temperature 97, blood pressure 120/60, respiratory rate of 16. HEENT: Unremarkable. NECK: Supple. LUNGS: Have decreased breath sounds. HEART: Normal S1, S2. ABDOMEN: Soft. LABORATORY DATA: Reveals the white count is 5.9, hemoglobin of 9 and platelets of 109. Chemistries are noted. Microbiology is noted. ASSESSMENT AND PLAN: This is a 75-year-old with systemic inflammatory response syndrome. No evidenc e of sepsis identified, possible hemochromatosis, currently with history of diabetes, dyslipidemia, e nd-stage renal disease on hemodialysis, renal cancer status post partial nephrectomy, off of antibiot ics, at risk for developing nosocomial infections. Review of the orders confirms the patient to be o ff of antibiotics. Ibrahmia Lara MD cc: [phone] TT: 08/07/2016 23:07:30 Confirmation # [id number] Dictation # [id number] mn
[2016-08-08] MEDS: Pantoprazole 20 mg EC Tab PO SCH (06:09)
[2016-08-08] MEDS: Insulin Reg-LOW-Coverage SC SCH ×2 (06:43→13:02)
--- NOTE | 2016-08-08 09:43 | PN ---
DATE: 08/07/2016 The patient sitting on a chair next to the walker. The patient able to walk to the bathroom sometime s with a walker, sometimes without. He is alert, awake. He has no new complaint. PHYSICAL EXAMINATION: VITAL SIGNS: Temperature 97.9, heart rate 53, blood pressure 123/57, respirations 18, saturation 100 %. HEAD AND NECK: Normal. No JVD, no thyromegaly. CHEST: Clear, good air entry. CARDIAC: First sound, second sound normal. ABDOMEN: Soft, nontender. EXTREMITIES: No edema. NEUROLOGIC: Normal. His blood sugar runs 120s, 130. The patient also had ammonia level which was less than 9. IMPRESSION: 1. Dementia. Continue current treatment. Regarding his mental competency or ability to make right decision, we will get Dr. Costa and psychiatry consult. Spoke with Dr. Huber. He does not feel comfortable giving him Viread because of the memory impairment and risk of overdosing or causing live r damage with the medications if taken inappropriately. Will give a call to the daughter to arrange for somebody to take care of him at home versus going to rehabilitation and fdc placement in the other direction the patient should be. At this time, patient seems move around okay with a walk er and we will continue physical therapy. Home visiting nurse will see the patient at home too. 2. Chronic renal failure. Continue hemodialysis as per nephrology consultations. 3. History of renal cell mass, calcified mass. Biopsy has been suggested. The patient has to follo w up as outpatient with Dr. Wagner, his urology surgeon, and Dr. Dupree. 4. Chronic hepatitis B. Continue followup with Dr. Huber. 5. Hypertension, diabetes, hypercholesterolemia. Continue current medications. The patient seems stable. If the family agrees with plan and seen by Dr. Costa, he will be discharg ed home or subacute rehabilitation. Still, this decision pending. Continue current treatment. The patient getting Aricept 10 mg, Colace 100 b.i.d., Diovan 320, aspirin 325 has been off for now desmond ham of the guaiac positive. Continue insulin, Lyrica twice a day 50 mg, MiraLax, Neurontin 100 t.i.d., Norvasc 10 mg once a day, PhosLo 2 tabs Sunday and Sunday, Protonix 20 p.o. daily, Tylenol p.r.n. Continue current medicine. Barber Aguirre MD cc: [phone] TT: 08/08/2016 09:42:28 Confirmation # [id number] Dictation # [id number] en
[2016-08-08 11:01] LABS: HEMATOCRIT 26.8 % (42.0-52.0); MEAN CELL VOLUME 85.1 fL (80.0-105.0); MEAN CORPUSCULAR HEMOGLOBIN 29.8 pg (25.0-35.0); MEAN CORPUSCULAR HGB CONC 35.1 g/dl (31.0-37.0); MEAN PLATELET VOLUME 12.3 fl (7.0-11.0); RED CELL DISTRIBUTION WIDTH 14.5 % (11.5-14.5); WHITE BLOOD COUNT 5.8 10^3/ul (4.5-11.0)
[2016-08-08 11:19] LABS: ALB/GLOB RATIO 0.7 (1.1-1.8); BILIRUBIN,TOTAL 0.5 mg/dL (0.2-1.3); CALCIUM 9.7 mg/dL (8.4-10.5); MAGNESIUM 2.7 mg/dL (1.7-2.2); PHOSPHOROUS 4.8 mg/dL (2.5-4.5); POTASSIUM 4.7 mmol/L (3.6-5.0); TOTAL PROTEIN 7.7 g/dL (5.8-8.3)
[2016-08-08] MEDS: POLYETHYLENE GLYCOL 3350 17 GM/Dose PACKET PO SCH (13:03)
--- NOTE | 2016-08-08 13:21 | CON ---
DATE: 08/08/2016 CONSULTATION REQUESTED BY: Attending physician who wants me to give opinion regarding the patient's mental competency. HISTORY OF PRESENT ILLNESS: The patient is a 75-year-old -[place] male who is currently being treated on the transitional care unit for continuation of IV antibiotics and debilitated state. He was originally admitted to the hospital due to an elevated temperature. He was placed on IV antibiotics. His blood cultures remain negative. He had no chest infiltrates. The patient had been complaining of lower left quadrant pain, but a CAT scan of the abdomen did not reveal any abnormalities. The patient has a past history of chronic renal failure, diabetes mellitus and hypertension. He was a former smoker. The patient has a history of using alcohol on weekends. The amount is unclear. The patient receives hemodialysis at least twice a week. The patient has been seen by multiple consultants. He was seen in consultation by a overlock operator and by a wall taper for thrombocytopenia. The patient is noted to have a history of chronic hepatitis B in addition to other clinical problems. The patient has had a history of a partial nephrectomy for a renal malignancy. The patient's GI consultation reveals that he has had a renal cell carcinoma. The patient had been on Viread 300 mg daily. In addition, he also had gastroparesis. CURRENT LABORATORY DATA: As follows: His white count is 5800, hemoglobin of 9.4, platelet count 171,000. His most recent metabolic profile reveals a sodium of 130, potassium 4.7, chloride 92, anion gap 25, BUN of 108, creatinine is 7.4, estimated GFR of 9, random glucose 158. He has phosphorus 4.8, magnesium 2.7. The rest of profile was within normal range. He had a negative test for pneumonia. PERSONAL HISTORY: The patient lives alone. He has 2 daughters who I was unable to speak to. According to social work notes, patient has 2 daughters, Misti Cabral and a sister, Joceline. They are currently working on a schedule so that the patient always has someone with him, as patient lives alone , plus they are in agreement for referral to [facility] services, [facility]. REVIEW OF SYSTEMS: His only complaint is his dialysis catheter in his arm. Denies headache, shortness of breath, chest pain, abdominal pain. The rest of 12-point review of systems is noncontributory, but not totally reliable. MENTAL STATUS: I interviewed patient while receiving dialysis. The patient is awake. He is alert. He is obviously quite confused. He is disoriented to the day, month, year and place. He knows he is in the hospital. Did not know the name of the hospital. When stated how long he had been in the hospital, he stated a month. He was originally admitted on 07/25/2016. His recent memory is poor. His thinking is somewhat tangential and circumferential. He has a superficial understanding of his various medical problems. He denies hallucinations, paranoia, or suicidal ideation or depression. IMPRESSION AND PLAN: The patient has chronic dementia. He has end-stage renal disease. He is on hemodialysis. He has diabetes mellitus. He has a history of hypertension. By CAT scan of head on04/2016, he has chronic microangiopathic changes and mild age-related global volume loss. The patient has enlargement, however, of the ventricles and cortical sulci The patient has a history of renal cell carcinoma with a partial nephrectomy, hyperlipidemia. It is my impression that patient is totally not capable of making any decisions in areas of finances, of refusing medical care or making any major social decisions regarding his needs. He will need 24-hour care. He will need a power of claims attorney or a guardian appointed, as the patient has a major neurocognitive impairment that impairs his ability not to only make decisions regarding the above problems, but to care for his activities of daily living including self- administration of medication. The patient is high risk for falling and fractures. Will be glad to discuss this report with you further. Salas Costa MD cc: [phone] TT: 08/08/2016 13:20:28 Confirmation # [id number] Dictation # [id number] faheem HANSEN
--- NOTE | 2016-08-08 13:50 | PN ---
DATE: 08/08/2016 The patient seen earlier today in room 327. No fevers and no chills. PHYSICAL EXAMINATION: VITAL SIGNS: Temperature is 98, blood pressure is 120/50, respiratory rate of 18. HEENT: Unremarkable. NECK: Supple. LUNGS: Have decreased breath sounds. HEART: Normal S1, S2. ABDOMEN: Soft. LABORATORY EXAMINATION: Reveals the patient's white count of 5.8, hemoglobin of 9, platelets of 171. Chemistries reveals the BUN of 108, creatinine of 7.4. ASSESSMENT AND PLAN: A 75-year-old with systemic inflammatory response syndrome, no evidence of seps is, possible hemochromatosis, history of diabetes, dyslipidemia, end-stage renal disease on hemodialy sis, renal cancer status post partial nephrectomy. Currently off of antibiotics, afebrile. Dr. Alec vazquez's note is reviewed. Review of the orders reveals the patient to be off of antibiotics. The patie nt to be seen by a psychiatrist. Ibrahima Lara MD cc: 350 TT: 08/08/2016 13:49:59 Confirmation # [id number] Dictation # [id number] en
--- NOTE | 2016-08-09 15:45 | DS ---
The patient is stable clinically. No chest pain, no shortness of breath. Currently on hemodialysis. The patient was seen by psychiatrist, Dr. Costa, who did diagnose him with severe dementia. The p atient will be discharged as per daughter. She will arrange some assistance for him and she will shruthi e care of him at home and in his daily activity. The patient otherwise seems comfortable. There is not any new complaint. PHYSICAL EXAMINATION: VITAL SIGNS: Stable. Afebrile, temperature 97, heart rate 53, blood pressure 123/57, respirations 1 8, saturation 100. HEAD AND NECK: Normal. No JVD. No thyromegaly. CHEST: Clear, good air entry. CARDIAC: First and second sounds are normal. ABDOMEN: Soft, nontender. EXTREMITIES: No edema. NEUROLOGIC: Normal. He does have dementia, significant cognitive impairment. LABORATORY DATA: White count 5.8, hemoglobin 9.4, hematocrit 26.8, platelets 171. Chemistry: Sodiu m 130, potassium 4.7, chloride 92, bicarbonate 25, BUN 108, creatinine 7.4, blood sugar 158, phosphor us 4.8, magnesium 2.7. Liver function test is normal. The patient did have a consultation by ID consult. He was seen by a GI consultation and oncology con ruma. The patient does have chronic hepatitis B. The GI did not recommend giving any Viread because of his mental status. The patient's case was discussed with the psychiatrist and discussed with the daughter. She will arrange for home care and also home care nursing visitation will be started to a ssist the patient at home. DISCHARGE DIAGNOSES: 1. Chronic renal failure. Continue hemodialysis. 2. Renal mass. The patient will follow up with Dr. Dupree and Dr. Johnson for that. 3. Hepatitis B, stable. According to the gastroenterology, will hold off on any Viread or any antiv iral. 4. Hypertension, diabetes, hypercholesterolemia. Resume all his meds. The patient should follow up with his primary care; however, I recommend to follow up with me within a week to be sure that the plan of care has been being conducted. The patient also has chronic anemi a, thrombocytopenia, stable at this time. Will hold off on any aspirin for a few more days and resum e it. At this time, continue current treatment. Follow up in office within a week. Dorene Aguirre MD cc: [phone] TT: 08/09/2016 15:45:14 mn
== END 2016-08-08 18:19 | disposition home health service (06) | DRG 864 ==
LOC: TRCU 16:32
PROVIDERS: ADMIT Internal Medicine; ATTEND Internal Medicine
PROC: F07Z9FZ Gait Training/Functional Ambulation Treatment using Assistive, Adaptive, Supportive or Protective Equipment (ICD-10-PCS; principal; 2016-07-30)
PROC: F08Z4FZ Home Management Treatment using Assistive, Adaptive, Supportive or Protective Equipment (ICD-10-PCS; 2016-08-02)
DX: R50.9 Fever, unspecified (principal); R65.10 Systemic inflammatory response syndrome (SIRS) of non-infectious origin without acute organ dysfunction; Z79.2 Long term (current) use of antibiotics; N18.6 End stage renal disease; I12.0 Hypertensive chronic kidney disease with stage 5 chronic kidney disease or end stage renal disease; E11.22 Type 2 diabetes mellitus with diabetic chronic kidney disease; F03.90 Unspecified dementia, unspecified severity, without behavioral disturbance, psychotic disturbance, mood disturbance, and anxiety; B18.1 Chronic viral hepatitis B without delta-agent; K86.1 Other chronic pancreatitis; E78.5 Hyperlipidemia, unspecified; D69.6 Thrombocytopenia, unspecified; K31.84 Gastroparesis; E11.43 Type 2 diabetes mellitus with diabetic autonomic (poly)neuropathy; R26.2 Difficulty in walking, not elsewhere classified; K74.69 Other cirrhosis of liver; Z99.2 Dependence on renal dialysis; K59.09 Other constipation; E83.39 Other disorders of phosphorus metabolism; R53.1 Weakness; E11.42 Type 2 diabetes mellitus with diabetic polyneuropathy; B18.2 Chronic viral hepatitis C; E78.00 Pure hypercholesterolemia, unspecified; R19.5 Other fecal abnormalities; D50.9 Iron deficiency anemia, unspecified; Z85.528 Personal history of other malignant neoplasm of kidney; Z90.5 Acquired absence of kidney; Z91.19 Patient's noncompliance with other medical treatment and regimen; Z87.891 Personal history of nicotine dependence

== ENCOUNTER 2016-10-02 16:35 | Inpatient (IN) | payer MEDICARE, BC ==
--- NOTE | 2016-10-02 18:17 | ED PDOC ---
Arrival/HPI - General Chief Complaint: Weakness/Neurological Deficit Time Seen by Provider: 10/02/16 17:11 - History of Present Illness Narrative History of Present Illness (Text): 10/02/16 18:10 75-year-old male with history of hemodialysis on Sunday, , Sunday, dementia, presents emergency Department with frequent falls and generalized weakness. Patient's podopediatrician states that his mental status is at baseline, reports that he has been falling more than usual. Patient states that he currently has no complaints of any acute pain, denies headache, denies extremity or hip pain, denies syncope/LOC. Past Medical History - Provider Review Nursing Documentation Reviewed: Yes - Infectious Disease Hx of Infectious Diseases: None - Tetanus Immunization Tetanus Immunization: Unknown - Cardiac Hx Cardiac Disorders: Yes Hx Hypertension: Yes - Pulmonary Hx Chronic Obstructive Pulmonary Disease (COPD): No - Neurological HX Cerebrovascular Accident: No - HEENT Hx HEENT Disorder: No (WEARS RX GLASSES) Hx Blind: No Hx Cataracts: No Hx Deafness: No Hx Difficulty Chewing: No Hx Epistaxis: No Hx Glaucoma: No Hx Macular Degeneration: No - Renal Hx Renal Failure: Yes (HD (//Sun)) - Endocrine/Metabolic Hx Diabetes Mellitus Type 2: Yes - Hematological/Oncological Hx Blood Disorders: Yes - Integumentary Hx Dermatological Disorder: Yes (Bullous pemphigoid) Hx Basal Cell Carcinoma: No Hx Eczema: No Hx Melanoma: No Hx Psoriasis: No Hx Squamous Cell Carcinoma: No - Musculoskeletal/Rheumatological Hx Falls: Yes - Gastrointestinal Hx Gastrointestinal Disorders: Yes (CONSTIPATION) - Genitourinary/Gynecological Hx Genitourinary Disorders: Yes (OLIGURIA,ESRD ON HEDMODIALYSIS) Hx Reproductive Disorders: No - Psychiatric Hx Psychophysiologic Disorder: No Hx Emotional Abuse: No Hx Physical Abuse: No Hx Substance Use: No - Surgical History Hx Amputation: No Hx Appendectomy: No Hx Cardiac Catheterization: No Hx Cholecystectomy: No Hx Coronary Stent: No Hx Gastric Bypass Surgery: No Hx Hysterectomy: No Hx Joint Replacement: No Hx Kidney Transplant: No Hx Liver Transplant: No Hx Mastectomy: No Hx Musculoskeletal Surgery: No Hx Open Heart Surgery: No Hx Orthopedic Surgery: No Hx Splenectomy: No Hx Valve Replacement: No - Anesthesia Hx Anesthesia Reactions: No Hx Malignant Hyperthermia: No - Suicidal Assessment Feels Threatened In Home Enviroment: No Family/Social History Family/Social History: Unknown Family HX Smoking Status: Former Smoker Hx Alcohol Use: No (H/O OF DRINKING WEEKENDS BEER-"NONE X 20 YRS") Hx Substance Use: No Hx Substance Use Treatment: No Allergies/Home Meds Allergies/Adverse Reactions: Allergies No Known Allergies Allergy (Verified 10/02/16 17:27) Home Medications: Home Meds Medication Instructions Recorded Confirmed Amlodipine/Valsartan [Exforge 1 tab PO DAILY 09/17/11 10/02/16 10-320 mg Tablet] Aspirin [Ecotrin] 325 mg PO DAILY 08/25/15 10/02/16 Gabapentin [Neurontin] 100 mg PO Q8 08/25/15 10/02/16 Pentoxifylline 400 mg PO Q8 08/25/15 10/02/16 Pregabalin [Lyrica] 50 mg PO BID 08/25/15 10/02/16 Omeprazole [Omeprazole] 20 mg PO DAILY 02/19/16 10/02/16 Physical Exam - Physical Exam Narrative Physical Exam (Text): 10/02/16 18:12 - Review of Systems Constitutional: Weakness. absent: Weight Change, Fevers Eyes: Normal ENT: denies sore throat, denies tristhmus Respiratory: Normal. absent: SOB, Cough, Sputum Cardiovascular: absent: Chest Pain, Palpitations, Syncope Gastrointestinal: Normal. absent: Abdominal Pain, Diarrhea, Nausea, Vomiting Genitourinary: Normal. absent: Dysuria, Frequency, Hematuria Musculoskeletal: Frequent falls. absent: Arthralgias, Back Pain, Neck Pain Skin: no rashes, no erythema Neurological: absent: Focal Weakness Endocrine: Normal Hemo/Lymphatic: Normal Psychiatric: No suicidal or homicidal ideations Physical exam Patient appears age appropriate in no distress, speaking full sentences without difficulty Head atraumatic. No nasal bone deformity or tenderness, no facial or jaw pain/ swelling. No neck midline tenderness, thoracic and lumbar spine with no midline tenderness. Pt moving b/l upper and lower extremities without difficulty, 5/5 strength, with full active and passive ROM. Distal neurovasc fully intact. Abd soft/nt/nd, no hematomas, no peritoneal signs. Neg. pelvic rock. - Systems Exam Head: Present: Atraumatic, Normocephalic Pupils: Present: PERRL Extroacular Muscles: Present: EOMI Conjunctiva: Present: Normal Mouth: Present: Moist Mucous Membranes Neck: Present: Normal Range of Motion. No: MIDLINE TENDERNESS, Paraspinal Tenderness Respiratory/Chest: Present: Clear to Auscultation, Good Air Exchange. No: Respiratory Distress, Accessory Muscle Use, Tachypneic Cardiovascular: Present: Regular Rate and Rhythm, Normal S1, S2, Peripheal Pulses Present. No: Murmurs Abdomen: Present: Normal Bowel Sounds. No: Tenderness, Distention, Peritoneal Signs, Rebound, Guarding Back: Present: Normal Inspection. No: Midline Tenderness, Paraspinal Tenderness Upper Extremity: Present: Left upper extremity with hemodialysis access, positive thrill/bruits/pulse. Distal neurovascular fully intact. No: Cyanosis, Edema Lower Extremity: Present: Normal Inspection. No: Edema Neurological: Present: GCS=15, Speech Normal, cranial nerves II through XII fully intact with no cerebellar abnormality, neurosensory fully intact. No focal neurological deficits. Skin: Present: Warm, Dry, Normal Color. No: Rashes Lymphatic: Present: OX3, NI, NC Psychiatric: Present: Alert. Not agitated, not anxious. Vital Signs Reviewed: Yes Vital Signs Temp Pulse Resp BP Pulse Ox 10/02/16 17:18 97.6 F 61 17 182/74 H 99 Temperature: Afebrile Blood Pressure: Hypertensive Pulse: Regular Respiratory Rate: Normal Appearance: Positive for: Well-Appearing Pain Distress: None Mental Status: Positive for: Alert and Oriented X 3 Medical Decision Making ED Course and Treatment: 10/02/16 18:[address] Aguirre in detail, he asked to admit patient to his service for further workup. Patient and podopediatrician aware of and agree with plan. EKG interpreted by ER physician. Normal sinus. No ST-segment elevations. Normal intervals. Chest xray interpreted by ED physician shows no pneumothorax, no cardiomegaly, no infiltrates 10/02/16 19:[address] Ervin in stable condition, pending f/u labs, and admission - RAD Interpretation Radiology Orders: 10/02/16 17:11 CHEST PORTABLE [RAD] Stat Disposition/Present on Arrival - Present on Arrival Any Indicators Present on Arrival: No History of DVT/PE: No History of Uncontrolled Diabetes: No Urinary Catheter: No History of Decub. Ulcer: No History Surgical Site Infection Following: None - Disposition Have Diagnosis and Disposition been Completed?: Yes Diagnosis: Weakness Disposition: HOSPITALIZED Disposition Time: 18:19 Patient Plan: Admission Patient Problems: Current Active Problems Problem Status Onset Weakness Acute Condition: STABLE Discharge Instructions (ExitCare): Weakness (ED) Referrals: Barber Aguirre MD [Primary Care Provider] - Follow up with primary
[2016-10-02 18:52] LABS: ADD MANUAL DIFF? NO
[2016-10-02 19:07] LABS: BASO # 0.05 K/mm3 (0.0-2.0); BASO % 1.1 % (0.0-3.0); EOS # 0.2 (0.0-0.7); EOS % 4.7 % (1.5-5.0); GRAN # 2.41 (1.4-6.5); GRAN % 53.8 % (50.0-68.0); HEMATOCRIT 38.1 % (42.0-52.0); LYMPH # 1.3 (1.2-3.4); LYMPH % 29.9 % (22.0-35.0); MEAN CELL VOLUME 86.6 fL (80.0-105.0); MEAN CORPUSCULAR HEMOGLOBIN 28.6 pg (25.0-35.0); MEAN CORPUSCULAR HGB CONC 33.1 g/dl (31.0-37.0); MONO # 0.5 (0.1-0.6); MONO % 10.5 % (1.0-6.0); RED CELL DISTRIBUTION WIDTH 17.7 % (11.5-14.5)
[2016-10-02 19:13] LABS: INR 1.06 (0.93-1.08); PARTIAL THROMBOPLASTIN TIME 33.8 Seconds (23.7-30.8)
[2016-10-02 19:17] LABS: PLATELET COUNT 106 10^3/uL (120.0-450.0); WHITE BLOOD COUNT 4.5 10^3/ul (4.5-11.0)
--- NOTE | 2016-10-02 20:09 | ED PDOC ---
Physical Exam Vital Signs Temp Pulse Resp BP Pulse Ox 10/02/16 20:36 63 16 138/76 99 10/02/16 19:18 70 140/75 10/02/16 18:00 72 18 166/87 H 99 10/02/16 17:18 97.6 F 61 17 182/74 H 99 Medical Decision Making ED Course and Treatment: 10/02/16 21:00 Case endorsed to me by Dr. Galarza pending labs for admission. Patient with past medical history of dementia, renal failure on dialysis, presented with history of generalized weakness, frequent falls. Dr. Galarza discussed with PMD Dr. Aguirre who requested patient be admitted for observation. Following results of labs, patient will be placed on observation. - Lab Interpretations Lab Results: 10/02/16 18:30 10/02/16 20:08 Lab Results 10/02/16 20:08: Sodium 141, Potassium 4.2, Chloride 97 L, Carbon Dioxide 30, Anion Gap 18, BUN 58 H, Creatinine 7.3 H, Est GFR ( Amer) 9, Est GFR (Non -Af Amer) 7, Random Glucose 124 H, Calcium 10.2, Total Bilirubin 0.7, AST 27, ALT 25, Alkaline Phosphatase 75, Total Protein 8.6 H, Albumin 4.0, Globulin 4.6 , Albumin/Globulin Ratio 0.9 L 10/02/16 18:30: PT 11.5, INR 1.06, APTT 33.8 H 10/02/16 18:30: WBC 4.5 D, RBC 4.40, Hgb 12.6 L, Hct 38.1 L, MCV 86.6, MCH 28.6 , MCHC 33.1, RDW 17.7 H, Plt Count 106 L, Gran % 53.8, Lymph % (Auto) 29.9, Ness % (Auto) 10.5 H, Eos % (Auto) 4.7, Baso % (Auto) 1.1, Gran # 2.41, Lymph # 1.3, Ness # 0.5, Eos # 0.2, Baso # 0.05 - RAD Interpretation Radiology Orders: 10/02/16 17:11 CHEST PORTABLE [RAD] Stat - Medication Orders Current Medication Orders: Discontinued Medications Amlodipine Besylate (Norvasc) 5 mg PO STAT STA Stop: 10/02/16 18:56 Last Admin: 10/02/16 19:18 Dose: 5 mg Disposition/Present on Arrival - Present on Arrival Any Indicators Present on Arrival: No History of DVT/PE: No History of Uncontrolled Diabetes: No Urinary Catheter: No History of Decub. Ulcer: No History Surgical Site Infection Following: None - Disposition Have Diagnosis and Disposition been Completed?: Yes Diagnosis: Weakness Disposition: HOSPITALIZED Disposition Time: 21:12 Patient Plan: Observation Patient Problems: Current Active Problems Problem Status Onset Weakness Acute Condition: STABLE Discharge Instructions (ExitCare): Weakness (ED) Referrals: Barber Aguirre MD [Primary Care Provider] - Follow up with primary
[2016-10-02 20:23] LABS: ALB/GLOB RATIO 0.9 (1.1-1.8); BILIRUBIN,TOTAL 0.7 mg/dL (0.2-1.3); CALCIUM 10.2 mg/dL (8.4-10.5); POTASSIUM 4.2 mmol/L (3.6-5.0); TOTAL PROTEIN 8.6 g/dL (5.8-8.3)
[2016-10-02 23:38] VITALS: BMI 21.1
--- NOTE | 2016-10-03 09:00 | RAD ---
HISTORY: cough COMPARISON: 07/24/2016 FINDINGS: LUNGS: No active pulmonary disease. PLEURA: No significant pleural effusion identified, no pneumothorax apparent. CARDIOVASCULAR: Normal. OSSEOUS STRUCTURES: No significant abnormalities. VISUALIZED UPPER ABDOMEN: Normal. OTHER FINDINGS: Calcified granulomas IMPRESSION: No active disease.
--- NOTE | 2016-10-03 09:49 | CARD ---
APPROVED REPORT EKG Measurement Heart [id number] <Conclusion> Normal sinus rhythm Possible Left atrial enlargement Possible septal infarct, new since 07/24/16 ECG
[2016-10-03] MEDS ORDERED: AMLODIPINE PO SCH (10:00)
[2016-10-03] MEDS ORDERED: VALSARTAN PO SCH (10:00)
[2016-10-03] MEDS: Aspirin 325 mg EC Tablets PO SCH ×2 (10:22→14:24)
[2016-10-03] MEDS: Pantoprazole 20 mg EC Tab PO SCH ×2 (10:23→14:23)
--- NOTE | 2016-10-03 20:26 | CON ---
DATE: 10/03/2016 HISTORY OF PRESENT ILLNESS: A 75-year-old male with past medical history of hypertension, diabetes, hepatitis B (untreated), dementia; and ESRD, on hemodialysis (TTS at [facility] on [facility], nephrolog ist with [facility]) sent to ED by PMD after daughter reported multiple episodes of falls. Nep hrology being consulted for hemodialysis care. History difficult to obtain from patient due to dementia. Daughter contacted; reports that the patie nt has been having excess falls since the past 1 month. Previously already had left foot-drop. Sherrie morocho denies that patient suffered any trauma; however, she was very concerned and brought patient to PMD's office yesterday. Plan is for patient to eventually be discharged to long-term nursing care. REVIEW OF SYSTEMS: CONSTITUTIONAL: Good appetite. HEENT: No blurry vision. RESPIRATORY: No shortness of breath. HEART: No chest pain or palpitations. No swelling of legs. GASTROINTESTINAL: No nausea, vomiting or diarrhea. GENITOURINARY: The patient makes a small amount of urine still. MUSCULOSKELETAL: Has had left ankle swelling previously. PSYCHIATRIC: Dementia, but able to carry on meaningful conversation. Able to perform activities of daily living. PHYSICAL EXAMINATION: VITAL SIGNS: This morning, blood pressure 176/81, heart rate 67, respirations 20, temperature 98.7, O2 sat 97% on room air. GENERAL: In no distress, conversing coherently in full sentences. HEENT: Moist mucous membranes, nonicteric. RESPIRATORY: Lungs are clear to auscultation bilaterally. No rales, no rhonchi, no wheezes. HEART: S1, S2 normal. No murmurs, no gallops or rubs. GASTROINTESTINAL: Abdomen soft, nontender, nondistended. GENITOURINARY: No bladder distention. EXTREMITIES: No leg edema. SKIN: Warm to touch. No cyanosis. Normal color. Good capillary refill PSYCHIATRIC: Able to carry out meaningful conversation, but not completely oriented to place or situation. LABORATORY DATA: From yesterday: WBC 4.5, hemoglobin 12.6, hematocrit 38.1, platelets 106. Check Examiner ry panel: Sodium 141, potassium 4.2, chloride 97, bicarb 30, BUN 58, creatinine 7.3, calcium 10.2, a lbumin 4.0. ASSESSMENT AND PLAN: 1. End-stage renal disease, on hemodialysis. The patient relatively euvolemic on exam. Stable elec trolyte status. Being dialyzed today per routine on 3K, 2.5 calcium, 30 bicarbonate dialysate over 3 -1/2 hours with ultrafiltration goal of 2 liters. 2. Hypertension, uncontrolled. The patient is currently on amlodipine 10 mg daily and valsartan 320 mg daily. We will check medication list from outpatient dialysis center to see if the patient was r eceiving extra p.r.n. meds. For now, will add p.r.n. clonidine for systolic blood pressure greater t serrano 180. 3. Chronic kidney disease, mineral bone disease. The patient with a calcium that higher end of norm al. Do not currently have outpatient records available. Will check phosphate level in the morning a nd will start sevelamer 800 mg t.i.d. with meals. 4. Anemia. Hemoglobin above goal for end-stage renal disease patient (10-11 grams). No need for Ar anesp at this time. 5. Left footdrop, etiology unclear, but has been ongoing since at least several months. Likely cont ributing to patient's frequent falls. Does get occasional swelling of left ankle joint which may be contributory. Will check uric acid level. Vincent Garcia MD cc: [id number] TT: 10/03/2016 20:26:07 Confirmation # [id number] Dictation # [id number] [email or web address]
[2016-10-04 07:18] LABS: HEMATOCRIT 35.8 % (42.0-52.0); MEAN CELL VOLUME 86.1 fL (80.0-105.0); MEAN CORPUSCULAR HEMOGLOBIN 27.9 pg (25.0-35.0); MEAN CORPUSCULAR HGB CONC 32.4 g/dl (31.0-37.0); PLATELET COUNT 46 10^3/uL (120.0-450.0); RED CELL DISTRIBUTION WIDTH 17.6 % (11.5-14.5); WHITE BLOOD COUNT 3.8 10^3/ul (4.5-11.0)
[2016-10-04 07:24] LABS: CALCIUM 9.7 mg/dL (8.4-10.5); MAGNESIUM 2.3 mg/dL (1.7-2.2); PHOSPHOROUS 6.5 mg/dL (2.5-4.5); POTASSIUM 4.1 mmol/L (3.6-5.0)
[2016-10-04] MEDS: Pantoprazole 20 mg EC Tab PO SCH (09:14)
[2016-10-04] MEDS: Aspirin 325 mg EC Tablets PO SCH (09:15)
[2016-10-04 10:36] LABS: ADD MANUAL DIFF? NO
[2016-10-04 10:37] LABS: BASO # 0.05 K/mm3 (0.0-2.0); BASO % 1.4 % (0.0-3.0); EOS # 0.2 (0.0-0.7); EOS % 6.6 % (1.5-5.0); GRAN # 1.79 (1.4-6.5); GRAN % 48.9 % (50.0-68.0); LYMPH # 1.2 (1.2-3.4); LYMPH % 31.4 % (22.0-35.0); MONO # 0.4 (0.1-0.6); MONO % 11.7 % (1.0-6.0)
[2016-10-04 17:07] LABS: THYROID STIMULATING HORMONE 3.16 mIU/mL (0.46-4.68)
[2016-10-04 19:18] LABS: FREE T4 1.52 ng/dL (0.78-2.19)
--- NOTE | 2016-10-04 20:21 | CP.PCM.PN ---
Subjective - Date & Time of Evaluation Date of Evaluation: 10/04/16 Time of Evaluation: 12:00 - Subjective Subjective: Patient reports feeling well; gets occasional pain involving L ankle; Objective - Vital Signs/Intake and Output Vital Signs (last 24 hours): Temp Pulse Resp BP Pulse Ox 97.8 F 56 L 20 160/73 H 100 10/03/16 23:00 10/03/16 23:00 10/03/16 23:00 10/04/16 09:16 10/03/16 23:00 Intake and Output: 10/04/16 10/05/16 18:59 06:59 Intake Total 840 Output Total 175 Balance 665 - Medications Medications: Current Medications Amlodipine Besylate (Norvasc) 10 mg PO DAILY [facility] Last Admin: 10/04/16 09:16 Dose: 10 mg Aspirin (Ecotrin) 325 mg PO DAILY [facility] Last Admin: 10/04/16 09:15 Dose: 325 mg Clonidine HCl (Catapres) 0.1 mg PO Q8H PRN PRN Reason: Systolic Blood Pressure Last Admin: 10/03/16 20:30 Dose: 0.1 mg Donepezil HCl (Aricept) 10 mg PO HS [facility] Last Admin: 10/03/16 21:26 Dose: 10 mg Pantoprazole Sodium (Protonix Ec Tab) 20 mg PO DAILY [facility] Last Admin: 10/04/16 09:14 Dose: 20 mg Pentoxifylline (Pentoxil) 400 mg PO Q8 [facility] Last Admin: 10/04/16 15:03 Dose: 400 mg Pregabalin (Lyrica) 50 mg PO BID [facility] Last Admin: 10/04/16 17:58 Dose: 50 mg Risperidone (Risperdal Tab) 0.25 mg PO 1000,1800 [facility] Last Admin: 10/04/16 17:57 Dose: 0.25 mg Sevelamer HCl (Renagel) 800 mg PO ACTID [facility] Last Admin: 10/04/16 17:58 Dose: 800 mg Valsartan (Diovan) 320 mg PO DAILY [facility] Last Admin: 10/04/16 09:14 Dose: 320 mg - Labs Labs: PT 11.5 Seconds (9.9-11.8) 10/02/16 18:30 INR 1.06 (0.93-1.08) 10/02/16 18:30 APTT 33.8 Seconds (23.7-30.8) H 10/02/16 18:30 - Constitutional Appears: Well, No Acute Distress - Head Exam Head Exam: NORMAL INSPECTION - Eye Exam Eye Exam: Normal appearance. absent: Scleral icterus - ENT Exam ENT Exam: Mucous Membranes Moist - Respiratory Exam Respiratory Exam: Clear to Ausculation Bilateral, NORMAL BREATHING PATTERN - Cardiovascular Exam Cardiovascular Exam: RRR, +S1, +S2 - GI/Abdominal Exam GI & Abdominal Exam: Soft. absent: Distended, Tenderness - Extremities Exam Extremities Exam: Normal Capillary Refill - Neurological Exam Neurological Exam: Alert, Awake - Psychiatric Exam Psychiatric exam: Normal Affect, Normal Mood - Skin Skin Exam: Normal Color, Warm. absent: Cyanosis Assessment and Plan (1) ESRD (end stage renal disease) Assessment & Plan: Stable volume and electrolyte status; HD tomorrow per routine; Status: Acute (2) HTN (hypertension) Assessment & Plan: BP improved since yesterday; continue amlodipine 10 mg daily, valsartan 320 mg daily and clonidine 0.1 mg prn; Status: Acute (3) Chronic kidney disease-mineral and bone disorder Assessment & Plan: Hyperphosphatemia; continue sevelamer 800 mg tid w/ meals; Status: Acute (4) Hepatitis B Assessment & Plan: Previously on viread but not currently on treatment; GI was considering restarting treatment but was concerned about patient's compliance with med due to his dementia; high viral load; may be the cause of thrombocytopenia; now that patient will likely be going to a nursing facility, can consider restarting viread, renal dosed at 300 mg per week if GI can follow as outpatient ; Status: Chronic (5) Anemia Assessment & Plan: Hgb above goal of 10-11 g for ESRD patient; monitor; Status: Acute
--- NOTE | 2016-10-05 07:43 | CON ---
DATE: 10/04/2016 HISTORY OF PRESENT ILLNESS: The patient is a 75-year-old -[place] male. I reviewed the zach t. I spoke to nursing staff. I also spoke at length with the patient's daughter on the telephone. The patient was brought to the Emergency Room last evening due to frequent falls at home. He has end -stage renal disease. He is on hemodialysis 3 times a week and he also suffers from dementia. The elsy gaviria's daughter states she checks on him during the morning hours. He has a lady friend who checks him later in the afternoon/early evening. Otherwise, he lives by himself. He cannot walk, he is in bed or in a wheelchair. PAST MEDICAL HISTORY: He has a history of as noted of end-stage renal disease. He has been diagnose d with dementia over the past year. The patient has periods of times when he becomes somewhat argume ntative with his lady friend and his daughter, but they are able to calm him down. The patient's oth er medical problems include a history of thrombocytopenia. He has a history of chronic hepatitis B. 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 The patient has gastroparesis. He has diabetes mellitus and hypertension. 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 He had a history of drinking fairly heavily up until the past years on weekends. PERSONAL HISTORY: As noted above. He is unmarried. He has 2 daughters, one of whom which I spoke t o. CURRENT MEDICATIONS: Include Aricept, Catapres, Diovan, Ecotrin, Lyrica, Norvasc, Pentoxil, Protonix , Renagel. CURRENT LABORATORY DATA: His most recent white count today was 3800, hemoglobin 11.6, platelet count 46,000 and manual count was 55,000. The patient's metabolic profile: Today his electrolytes were a ll within normal range. His BUN is 35, creatinine 5.3, estimated GFR 13, phosphorus 6.5, magnesium 2 .3. Rest of profile except for a total protein is 8.6 is normal. The patient had an electrocardiogr am, which was interpreted as showing a normal sinus rhythm with a possible left atrial enlargement, p ossible septal infarct, new since 07/24/16. The patient had a chest x-ray, which showed no active di sease. REVIEW OF SYSTEMS: He is complaining of pain in his feet, especially his left leg and foot. He is a lso complaining of the fact that he cannot walk. Other 10-point review of systems is negative. PHYSICAL EXAMINATION: VITAL SIGNS: Blood pressure 160/73, pulse 56, respirations 20 per minute, O2 saturation 100%. He is afebrile. NEUROLOGIC: No gross focal neurological findings. PSYCHIATRIC: Mental status: He is awake. He is sitting in a chair at his bedside. He has a 1:1 ai de watching him. The patient awake, he is alert. He is slightly confused, not sure whether the ramya h is September or October. He did not know the day of the week. He knew the year. He knew he was in the [facility]. He could not name the name of the medical center. He could not enumerate his medical problems except for the fact that he was having trouble walking. His recent memory is somewhat cloud ed. He claims he came in the hospital a few days ago. His judgment and insight are impaired. He casanova s no agitation. Denies any depression, nervousness or suicidal ideation or hallucinations. IMPRESSION: He has chronic dementia, probably vascular type. He has a history of falls. He has end -stage renal disease. He has hemodialysis, has diabetes mellitus, hypertension. He has an abnormal EKG suggestive of an acute septal infarct. The patient has a history of hypertension. The patient's last CT scan of the head in 04/2016 revealed moderate chronic microangiopathic changes and mild age- related volume loss. The patient has enlarged ventricles. PLAN: Will give him a trial on a tiny dose of Risperdal to ease intermittent agitation and we will m onitor his mental status and reevaluate the patient tomorrow. Salas Costa MD cc: [id number] TT: 10/04/2016 19:32:18 Confirmation # [id number] Dictation # [id number] [email or web address]
--- NOTE | 2016-10-05 07:50 | HP ---
REASON FOR ADMISSION: This patient is generally weak, dementia, living by himself, dialysis. HISTORY OF PRESENT ILLNESS: This is a 75-year-old male brought in by his daughter initially to the [facility] because of his confusion, dementia, cannot manage herself at home. He is very weak, he is in a wheelchair. Has a history of falls and risk of fall is high. The patient needs to be placed. Curr ently on hemodialysis. He has a problem with managing his life and his care. There is not any fever , no nausea, no vomiting or any other complaints. The patient says that sometimes he gets aggressive and disoriented. Otherwise, he has no new complaints. Has a questionable mass in the kidney; medic al management, no interventions as per his daughter. PAST MEDICAL HISTORY: Chronic renal failure, dementia, hypertension, peripheral neuropathy, chronic hepatitis B. The patient also had a kidney mass that will not be addressed at this time, only kaya tibertha. Also had a nephrectomy and currently on hemodialysis for chronic renal failure. The patient also gets some agitations. HOME MEDICATIONS: He is taking pentoxifylline, Prilosec, Aricept, Exforge 10/325, aspirin, Lyrica 50 mg twice a day, Neurontin also 100 mg every 8. REVIEW OF SYSTEMS: Obviously the patient has weakness, confusion, memory loss and he talks sometimes nonsense and he is also forgetful, and sometimes he will get a little bit of aggression talking to h im. He is weak, he has also constipation. ALLERGIES: No known allergy. PHYSICAL EXAMINATION: VITAL SIGNS: Temperature is 98.4, heart rate is 65, blood pressure 197/87, respirations 20, saturati on is 98%. HEAD AND NECK: Normal. No JVD, no thyromegaly. CHEST: Clear, with good air entry. CARDIAC: First sound and second sound normal. Systolic murmur. ABDOMEN: Soft, nontender. EXTREMITIES: No edema. NEUROLOGIC: The patient is moving all extremities, but he is weak and has a problem ambulating and s tanding and walking by himself. Nonfocal and he has dementia. LABORATORY DATA: White count 4.5, hemoglobin 12.6, hematocrit 38.1, platelets 106. Sodium 141, pota ssium 4.2, chloride 97, bicarb , BUN 58, creatinine 7.3, blood sugar 124, calcium 10.2. Liver f unction test is normal. The patient also had a chest x-ray, which was noted for no active pulmonary disease. IMPRESSION AND PLAN: This is a 75-year-old male with dementia, chronic renal failure on hemodialysis , who lives by himself. He gets confused, he gets agitated sometimes, not able to manage himself on his life and his healthcare. We will admit the patient for: 1. Generalized weakness plus [facility] placement. Will continue hemodialysis. Will get the psyc abebaatrlanie to see him for behavioral management including maybe some sort of antipsychotic therapy for hi m; he does get a little bit and aggression. Will discuss further with the psychiatry and will get also a renal consult for continuation of hemodialysis. 2. Hypertension and dementia. Will resume all his meds. Will monitor his blood pressure and will f ollow up with the apprise counselor. 3. Will for placement at [facility] for his hemodialysis unit. Will continue current treatment. Discussed the case with the daughter. We will discuss also further with her about the DNR situation and cardiac resuscitations. Barber Aguirre MD cc: [phone] TT: 10/04/2016 20:05:05 chelsy
--- NOTE | 2016-10-05 09:56 | PN ---
DATE: 10/04/2016 The patient actually was agitated on the floor, ____ seeing the patient Dr. Costa. He put him on Ri sperdal. The patient otherwise, right now, he ____ in bed, no distress. He is awake, alert, but he occasionally gets confused. He ____ hemodialysis ____ before that. PHYSICAL EXAMINATION: VITAL SIGNS: Temperature 98. The heart rate is ____, respirations 20, saturation 100% on room air. HEAD AND NECK: Normal. No JVD, no thyromegaly. CHEST: Clear, good air entry. CARDIAC: First and second sounds are normal. ABDOMEN: Soft, nontender. EXTREMITIES: No edema. NEUROLOGIC: Normal. LABORATORY DATA: White count 3.8, hemoglobin ____.6, hematocrit 35.8, platelets 46, manual platelet count 55. His chemistry is noted for sodium 139, potassium 4.1, chloride 103, bicarb 26. BUN 35 and creatinine 5.3. The patient also has phosphorus 6.5, magnesium 2.3. His liver enzymes are normal. Troponin is negative. The patient also has TSH 3.1. IMPRESSION AND PLAN: 1. Dementia with periods of confusion, and the patient has periods of agitation. We will get Dr. Leoncio barry who gave him Risperdal, seems to be doing better with that - continue. Aricept for his dementia and Risperdal antipsychotic and mood stabilizers for his agitation, which he seems to be doing well with that. 2. Chronic renal failure. The patient is stable on hemodialysis. He is seen by a automotive instructor. Ramiro Garibay for underlying renal disease, and seems stable. 3. Hypertension. The patient is currently on Norvasc 10 mg. His blood pressure was high. He was g iven extra 10 mg, seems to be doing okay. Also Catapres has been given p.r.n. every 8 hours. The wendy braun is also getting Diovan 320 mg. Continue current treatment. Follow up with the nephrology consult. At this time, the patient will b e evaluated for ____ at [facility] for long-term placement. In addition, it has a dialysis uni t, which should be ____. Continue Protonix. Continue aspirin 325 mg daily. The patient is also get ting pentoxifylline, and followup clinically. Barber Aguirre MD cc: [phone] TT: 10/05/2016 09:17:12 Confirmation # [id number] Dictation # [id number] jn 10/05/2016 08:55:46
--- NOTE | 2016-10-05 13:04 | PN ---
DATE: 10/05/2016 HISTORY OF PRESENT ILLNESS: The patient is a 75-year-old -[place] male. The patient was anup luated yesterday. He was started on Risperdal for agitated behavior 400 mg b.i.d. The patient is cu rrently getting his routine hemodialysis for end-stage renal disease. I reviewed the chart. I spoke with the patient's nurse in hemodialysis. The patient is awake. He is alert, slightly confused at times, slightly disoriented, oriented to place, not month and day, knows the year. Recent memory is slightly clouded. He appears tense, constricted. There is some thought blocking. Recent memory is somewhat impaired. Insight and judgment are also impaired. The patient has no evidence of agitation at this point. I reviewed nurse's notes from last night. He slept well, apparently through most of the night. CURRENT MEDICATIONS: He is on Aricept, Catapres, Diovan, Ecotrin, Lyrica, Norvasc, Protonix, Renagel , Risperdal 0.25 mg b.i.d. LABORATORY DATA: Today, his CBC: His white count is 3800, hemoglobin 11.6, platelet count manual is 55,000. The patient has no new reports from laboratory today. REVIEW OF SYSTEMS: Denies any positive findings from 10-point review of systems. However, the ward ayers is not a reliable historian. VITAL SIGNS: Blood pressure 163/75, pulse 62, afebrile, respirations 20 per minute, O2 saturation 10 0% on room air. IMPRESSION: The patient has chronic dementia with behavioral disturbance, recent agitation, possible hallucinations, not now. The patient has end-stage renal disease. He receives hemodialysis. He casanova s a history of hypertension, coronary artery disease. The patient has neurocognitive impairment. PLAN: We will continue Risperdal 0.25 b.i.d. and we will continue to monitor mental status. Salas Costa MD cc: [id number] TT: 10/05/2016 13:03:14 Confirmation # [id number] Dictation # [id number] tn
[2016-10-05] MEDS: Aspirin 325 mg EC Tablets PO SCH (13:49)
[2016-10-05] MEDS: Pantoprazole 20 mg EC Tab PO SCH (13:54)
--- NOTE | 2016-10-05 17:37 | CON ---
DATE: 10/05/2016 Seen and examined at the bedside this afternoon. The chart was reviewed. REQUEST FOR CONSULT: History of hepatitis B. HISTORY OF PRESENT ILLNESS: This is a 75-year-old male with a past medical history of end-stage clovis l disease, on dialysis. He just returned from dialysis. Was brought to the hospital with complaints of generalized weakness and frequent falls. The patient does have a history of dementia and is repo rted to be having increased falls. The patient denies any nausea, vomiting or abdominal pain. No co mplaints of any shortness of breath or chest pain. This patient is known to our service. He was las t followed by our service back in July. This patient does have a history of chronic hepatitis B. T he patient in the past used to be on a reduced dose of weekly Viread daily. He did have hepatitis B DNA quantitative done and that was graded at 8.23 and his hepatitis B DNA interpretation was also emmett y high. His hepatitis B surface antigen confirmed positive high. There was a concern for myla ent's compliance regarding medication and had a long discussion with the patient's daughter and Dr. Maritza mitchell regarding placing this patient on hepatitis B treatment. 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 He also reported becoming increasingly forgetful. The patient while I was in the room on numerous occasions kept asking what room he is supposed to be in. Otherwise, he denies any symptoms of nausea, vomiting or abdominal pain. Reports regular bowel movement. No repo rts of any overt GI bleed. PAST MEDICAL HISTORY: End-stage renal disease on dialysis, hypertension, diabetes mellitus, hepatiti s B, currently not on treatment. Dementia, left foot drop, pancreatitis, renal cancer with partial n ephrectomy, history of grade I varices and gastric polyp. PAST SURGICAL HISTORY: Left AV fistula, partial nephrectomy. Most recent endoscopy was 06/2015. Had gastric polyp, grade 1 varices and superficial gastric ulcers. ALLERGIES: No known drug allergies. FAMILY HISTORY: Noncontributory at this time. SOCIAL HISTORY: Denies smoking, ETOH or substance abuse. MEDICATIONS: Reviewed, as per MAR. REVIEW OF SYSTEMS: Systems were reviewed with positive findings. See HPI. VITAL SIGNS: Temperature 98.4, blood pressure is 130/66, pulse 62, respirations 20, 100% on room air . LABORATORY DATA: This is from 10/04/2016. WBC is 3.8, hemoglobin 11.6, hematocrit 35.8, platelet is 46, manual platelet is 55. PT is from 10/02/2016. PT is 11.5, INR is 1.06, PTT 33.8. Chem is from 10/04/2016 and it is sodium 139, potassium 4.1, BUN is 35, creatinine is 5.3. The patient is on juanpablo lysis. Magnesium 2.3, phosphorus 6.5. Last liver enzymes noted are from 10/02/2016 and that was wit hin normal limits. Total bilirubin is 0.7. AST 27, ALT 25, alkaline phosphatase 75. Troponin was d one on 10/04/2016 and that was negative at 0.02. IMAGING STUDIES: He had a chest x-ray on 10/02/2016 and this was negative for active pulmonary disea se. No pleural effusion, no pneumothorax. PHYSICAL EXAMINATION: HEENT: Sclerae are anicteric. NECK: Supple. CARDIAC: S1, S2. LUNGS: Decreased breath sounds but good air entry. ABDOMEN: With bowel sounds, soft, nondistended, nontender on palpation. No rebound, guarding or org anomegaly. EXTREMITIES: No edema. NEUROLOGIC: Awake, alert and oriented with periods of confusion. ASSESSMENT: This is a 75-year-old male with a past medical history of end-stage renal disease on juanpablo lysis, dementia, hypertension, with chronic hepatitis B. The patient was brought to the hospital for generalized weakness and increasing falls. PLAN: The patient is being evaluated for assisted placement at [facility]. We will reconside r treatment for hepatitis B. As the patient has a history of being noncompliant with treatment, with this constant monitoring, patient may benefit now from treatment with hepatitis B. We will discuss w [facility] medical team and family. Appreciate renal recommendation for dosing. Continue PPI. The patient is on aspirin. The patient is also noted to have thrombocytopenia. The patient is on antihypertensiv e medications and patient is on pentoxifylline. Thank you for this consult and for allowing us to participate in your patient's care. We will make f mi recommendations based upon patient's clinical course. The patient was seen and case discussed with Dr. Huber. Chanel BURNS cc: [id number] TT: 10/05/2016 17:36:34 Confirmation # [id number] Dictation # [id number] ln
--- NOTE | 2016-10-06 08:02 | PN ---
DATE: 10/05/2016 NEPHROLOGY FOLLOWUP NOTE A 75-year-old male with past medical history of hypertension, diabetes, untreated hepatitis B, katharina ia, renal mass, and ESRD on hemodialysis, admitted due to multiple falls. Nephrology service is foll owing for hemodialysis care. The patient today appears upset, does not want to be examined. Denying any complaints. Per patient health care specialist who is monitoring the patient due to agitation, he has been having difficulty walking on left foot. PHYSICAL EXAMINATION: VITAL SIGNS: This morning, blood pressure 163/75, heart rate is 62, respirations 20, temperature 98. 4. O2 is sat 100% on room air. GENERAL: In no distress. HEART: S1, S2. Normal. EXTREMITIES: No leg edema. The rest of the exam limited due to patient non-cooperation. LABORATORY DATA: None new since yesterday. Labs yesterday notable for platelet count 55. ASSESSMENT: 1. End-stage renal disease on hemodialysis. Relatively stable electrolyte and volume status. Recei anthony routine hemodialysis session today. Next session for Sunday. 2. Hypertension. Blood pressure fluctuating. Currently on valsartan 320 mg daily, amlodipine 10 mg daily, also on clonidine 0.1 mg q. 8 hours p.r.n., although has not been dosed this regularly. We w ill add hydralazine 25 mg b.i.d. 3. Chronic kidney disease, mineral bone disease. The patient with elevated phosphorus at 6.5 yester day, on sevelamer 800 mg t.i.d. with meals. Continue the same. 4. Anemia. Hemoglobin at goal for end-stage renal disease patient (10-11 grams). We will hold Kyree louie for now. Vincent Garcia MD cc: [id number] TT: 10/05/2016 20:22:45 Confirmation # [id number] Dictation # [id number] shamir
--- NOTE | 2016-10-06 08:18 | CON ---
DATE: 10/05/2016 This is an addendum to the GI consultation report dictated by Chanel Schulz APN. This patient is well known to our service. He has end-stage renal disease, on hemodialysis; history of renal carcinoma; h istory of chronic hepatitis B, on Viread. Poor compliance with the medication. The patient is now b eing evaluated for fdc placement. Once he is placed in fdc, patient can be resumed on Viread once the compliances are sustained. Will discuss with the medical team regarding this. T he patient was in the past on once a week Viread dose. Thank you very much for allowing us to participate in the care of the patient. Liss Huber MD cc: [phone] TT: 10/06/2016 08:17:49 Confirmation # [id number] Dictation # [id number] mn
[2016-10-06] MEDS: Aspirin 325 mg EC Tablets PO SCH (09:17)
[2016-10-06] MEDS: Pantoprazole 20 mg EC Tab PO SCH (09:19)
--- NOTE | 2016-10-06 11:31 | PN ---
DATE: 10/06/2016 The patient was seen and examined at the bedside this morning. He remains on 1:1. He is awake and a lert, but is forgetful. No reports of acute overnight events. The patient has no complaint except f or his left foot. He is talking about his left foot drop. VITAL SIGNS: Temperature is 98.9, blood pressure is 173/72, pulse is 67, respirations 20, 99% room a ir. No new labs are noted for today. PHYSICAL EXAMINATION: HEENT: Sclera is anicteric. NECK: Supple. CARDIAC: S1, S2. LUNG SOUNDS: With decreased breath sounds, but positive air entry, no rales or wheeze. ABDOMEN: With bowel sounds, soft, no tenderness, no rebound or guarding. LOWER EXTREMITIES: No edema. Positive left foot drop. NEUROLOGIC: The patient is awake and alert with periods of forgetfulness. ASSESSMENT: A 75-year-old male with history of end-stage renal disease on dialysis, chronic hepatiti s B, not currently on treatment, dementia, left foot drop, history of pancreatitis and renal cancer w ith partial nephrectomy, here for weakness and multiple falls. PLAN: Continue current treatment. He is pending evaluation for fci placement. Once patien t has placement in fci, then we can consider resuming patient on Viread as long as there is compliance. We will follow. The patient was seen and case discussed with Dr. Huber. Chanel BURNS cc: [id number] TT: 10/06/2016 11:30:43 Confirmation # [id number] Dictation # [id number] en
--- NOTE | 2016-10-06 12:50 | PN ---
DATE: 10/05/2016 The patient on dialysis. No new complaints, gets confused on and off. Otherwise, hemodynamically st able. PHYSICAL EXAMINATION: VITAL SIGNS: Temperature is 98, heart rate 62, blood pressure 164/68, respirations 20, saturation 10 0% on room air. HEAD AND NECK: Normal. No JVD, no thyromegaly. CHEST: Clear, good air entry. CARDIAC: First sound, second sound normal. ABDOMEN: Soft, nontender. EXTREMITIES: There is bilateral ankle edema. NEUROLOGIC: General weakness. Otherwise, nonfocal and there is confusion and patient has dementia. LABORATORY STUDIES: Last labs, white count 3.8, hemoglobin 11.6, hematocrit 35.8, platelets 46. Yolanda kecia shows sodium 139, potassium 4.1, chloride 103, bicarb 26, BUN 35, creatinine 5.3, phosphorus 6 .5, magnesium 2.3. The patient's vitamin D also 23.5. TSH is normal. IMPRESSION AND PLAN: 1. Chronic dementia which is getting worse, cannot stay by himself. The patient will be evaluated f or half-way placement. 2. Chronic renal failure. Continue hemodialysis. 3. The patient does have also history of renal mass that the family does not want to intervene with any surgery or any interventions. 4. Also, chronic hepatitis B. Will reevaluate by GI java consultant. Since the patient is going to be i n a half-way, maybe he will be compliant with the medications for hepatitis B. However, we will leave that to the gastroenterology. 5. Chronic anemia, thrombocytopenia, leukopenia, pancytopenia. This is probably related to his buffer chrome genesis hepatitis B, possibly splenomegaly. We will continue followup on the patient, evaluate for place ment at half-way. Barber Aguirre MD cc: [phone] TT: 10/06/2016 12:49:32 Confirmation # [id number] Dictation # [id number] en
--- NOTE | 2016-10-06 20:11 | PN ---
DATE: 10/06/2016 HISTORY OF PRESENT ILLNESS: The patient is a 75-year-old -[place] male currently being treat ed for confusion, end-stage renal disease. He is on hemodialysis. The patient had had recent agitat ion with behavioral disturbance, but is relatively stable now in terms of his agitation. His mental status reveals he still has a major neurocognitive impairment with some degree of confusion and disor ientation; he thinks the month is March. His recent memory is somewhat clouded. He has superfici al understanding of the nature of his medical problems. His judgment and insight are also impaired. He has been started on Risperdal 0.25 mg b.i.d. for restlessness and agitation, which seems to have s ome benefit without any adverse side effects. He is also receiving Aricept, Catapres, Diovan, Ecotrin , Lyrica, Norvasc, , Renagel. LABORATORY DATA: No new laboratory data to report, although he does have a low vitamin D level that came back yesterday that was 23.5. His thyroid function studies and B12 are normal. VITAL SIGNS: Blood pressure 153/72, pulse 66, afebrile, respirations 20 per minute. REVIEW OF SYSTEMS: Complains of pain in his left lower extremity. Otherwise, has no other specific complaints on 10-point review. IMPRESSION: The patient has chronic depression with some recent behavioral disturbance. He has end- stage renal disease. He is on hemodialysis. He has a history of a renal mass. He has chronic hepati tis B. The patient has chronic anemia, thrombocytopenia, leukopenia, pancytopenia. PLAN: Would continue current medications. We will add vitamin D 2000 international units daily and we will continue to monitor mental status. Salas Costa MD cc: [id number] TT: 10/06/2016 20:10:29 Confirmation # [id number] Dictation # [id number] ln
--- NOTE | 2016-10-06 23:29 | PN ---
DATE: 10/06/2016 ADDENDUM This is an addendum to the GI progress report dictated by Chanel Schulz APN. The patient is confused now. History of hepatitis C. The patient at high risk of having problems with improper intake of th e medication. We will hold off treating for hepatitis B until the medication can be safely administe red. The reasonable thing for this patient to consider is jail placement where medication ca n be correctly given. At the moment, we would not contemplate restarting the treatment. Liss Huber MD cc: [id number] TT: 10/06/2016 23:28:35 Confirmation # [id number] Dictation # [id number] dn
[2016-10-07] MEDS: Aspirin 325 mg EC Tablets PO SCH (09:27)
[2016-10-07] MEDS: Pantoprazole 20 mg EC Tab PO SCH (09:28)
[2016-10-07 16:12] LABS: ADD MANUAL DIFF? NO
[2016-10-07 16:28] LABS: BASO # 0.04 K/mm3 (0.0-2.0); BASO % 0.9 % (0.0-3.0); EOS # 0.2 (0.0-0.7); EOS % 4.2 % (1.5-5.0); HEMATOCRIT 33.6 % (42.0-52.0); LYMPH # 0.9 (1.2-3.4); LYMPH % 21.4 % (22.0-35.0); MEAN CELL VOLUME 84.6 fL (80.0-105.0); MEAN CORPUSCULAR HEMOGLOBIN 28.5 pg (25.0-35.0); MEAN CORPUSCULAR HGB CONC 33.6 g/dl (31.0-37.0); MONO # 0.3 (0.1-0.6); MONO % 7.5 % (1.0-6.0); PLATELET COUNT 71 10^3/uL (120.0-450.0); RED CELL DISTRIBUTION WIDTH 17.5 % (11.5-14.5); WHITE BLOOD COUNT 4.3 10^3/ul (4.5-11.0)
[2016-10-07 16:33] LABS: ALB/GLOB RATIO 0.9 (1.1-1.8); BILIRUBIN,TOTAL 0.5 mg/dL (0.2-1.3); CALCIUM 9.8 mg/dL (8.4-10.5); POTASSIUM 4.2 mmol/L (3.6-5.0); TOTAL PROTEIN 7.4 g/dL (5.8-8.3); URIC ACID 5.7 mg/dL (3.5-8.5)
--- NOTE | 2016-10-07 18:48 | PN ---
DATE: 10/07/2016 SUBJECTIVE: This patient was seen and evaluated earlier. The patient still remains confused. PHYSICAL EXAMINATION: VITAL SIGNS: Temperature 98.8, pulse is 70, blood pressure 180/70. HEENT: Atraumatic, anicteric. HEART: S1, S2 heard. LUNGS: Bilateral air entry present. ABDOMEN: Soft. There is no tenderness. EXTREMITIES: edema present. NEUROLOGIC: The patient remains more confused. LABORATORY DATA: No recent labs today. 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 The patient was on Viread 300 mg once a week dose. The patient has renal failure on dialysis; poorl y compliant with the medication, presently off the Viread. PLAN: The patient is awaiting for the placement. Once it is found, the patient can be restarted on Viread. Thank you very much for allowing us to participate in the care of the patient. Liss Huber MD cc: [id number] TT: 10/07/2016 18:48:08 Confirmation # [id number] Dictation # [id number] dn
--- NOTE | 2016-10-07 19:36 | CP.PCM.PN ---
Subjective - Date & Time of Evaluation Date of Evaluation: 10/07/16 Time of Evaluation: 13:00 - Subjective Subjective: Patient denies any complaints; per sitter he hasn't walked, only gotten into chair; Objective - Vital Signs/Intake and Output Vital Signs (last 24 hours): Temp Pulse Resp BP Pulse Ox 98.2 F 63 20 162/71 H 100 10/07/16 18:40 10/07/16 18:40 10/07/16 18:40 10/07/16 18:40 10/07/16 18:40 - Medications Medications: Current Medications Amlodipine Besylate (Norvasc) 10 mg PO DAILY [facility] Last Admin: 10/07/16 09:27 Dose: 10 mg Aspirin (Ecotrin) 325 mg PO DAILY [facility] Last Admin: 10/07/16 09:27 Dose: 325 mg Cholecalciferol (Vitamin D) 2,000 iu PO DAILY [facility] Last Admin: 10/07/16 09:29 Dose: 2,000 iu Clonidine HCl (Catapres) 0.1 mg PO Q8H PRN PRN Reason: Systolic Blood Pressure Last Admin: 10/03/16 20:30 Dose: 0.1 mg Donepezil HCl (Aricept) 10 mg PO HS [facility] Last Admin: 10/06/16 22:01 Dose: 10 mg Hydralazine HCl (Apresoline) 50 mg PO BID [facility] Last Admin: 10/07/16 17:10 Dose: 50 mg Pantoprazole Sodium (Protonix Ec Tab) 20 mg PO DAILY [facility] Last Admin: 10/07/16 09:28 Dose: 20 mg Pregabalin (Lyrica) 50 mg PO BID [facility] Last Admin: 10/07/16 17:11 Dose: 50 mg Risperidone (Risperdal Tab) 0.25 mg PO 1000,1800 [facility] Last Admin: 10/07/16 17:09 Dose: 0.25 mg Sevelamer HCl (Renagel) 800 mg PO ACTID [facility] Last Admin: 10/07/16 17:11 Dose: 800 mg Valsartan (Diovan) 320 mg PO DAILY [facility] Last Admin: 10/07/16 09:27 Dose: 320 mg - Labs Labs: 10/07/16 16:00 10/07/16 16:00 PT 11.5 Seconds (9.9-11.8) 10/02/16 18:30 INR 1.06 (0.93-1.08) 10/02/16 18:30 APTT 33.8 Seconds (23.7-30.8) H 10/02/16 18:30 - Constitutional Appears: Non-toxic, No Acute Distress - Head Exam Head Exam: NORMAL INSPECTION, NORMOCEPHALIC - Eye Exam Eye Exam: Normal appearance. absent: Scleral icterus - ENT Exam ENT Exam: Mucous Membranes Moist - Respiratory Exam Respiratory Exam: Clear to Ausculation Bilateral, NORMAL BREATHING PATTERN - Cardiovascular Exam Cardiovascular Exam: RRR, +S1, +S2 - GI/Abdominal Exam GI & Abdominal Exam: Soft. absent: Distended, Tenderness - Extremities Exam Additional comments: No leg edema; No swelling/erythema of L ankle; - Psychiatric Exam Psychiatric exam: Normal Mood. absent: Agitated Additional comments: Confused; - Skin Skin Exam: Normal Color, Warm Assessment and Plan (1) ESRD (end stage renal disease) Assessment & Plan: Getting HD today per routine on 3K dialysate; labs on HD; next HD for Sunday; Status: Acute (2) HTN (hypertension) Assessment & Plan: Uncontrolled, increasing hydaralazine to 50 mg bid; Status: Acute (3) Chronic kidney disease-mineral and bone disorder Assessment & Plan: Phos improved but stlll above target, increasing sevelamer to 2 tabs tid w/ meals; Status: Acute (4) Hepatitis B Assessment & Plan: Per GI, will consider tx once patient is in a monitored penitentiary setting as he is unreliable to take meds on his own; Status: Chronic (5) Anemia Assessment & Plan: Hgb just above goal for ESRD; monitor; will hold off on EPO for now; Status: Acute
--- NOTE | 2016-10-08 07:27 | PN ---
DATE: 10/07/2016 The patient seen in hemodialysis unit. He is comfortable, no distress, no new complaint. PHYSICAL EXAMINATION: VITAL SIGNS: Temperature 98.8, heart rate 70, blood pressure is 180/70, respiration 20, saturation 9 9%. HEAD AND NECK: Normal. No JVD, no thyromegaly. CHEST: Clear, good entry. CARDIAC: First sound, second sound normal. ABDOMEN: Soft, nontender. EXTREMITIES: No edema. NEUROLOGIC: General weakness, gait instability and dementia. LABORATORY DATA: White count 4.3, hemoglobin 11.3, hematocrit 33.6, platelets 71. Chemistry noted f or sodium 134, potassium 4.2, chloride 99, bicarb 20, BUN 66, creatinine 6.8, blood sugar 183. His p hosphorus 6, vitamin D is low at ____. IMPRESSION AND PLAN: 1. Chronic renal failure. Continue hemodialysis. Follow up with the selector packer, ____ and mandi sutton current therapy. 2. Anemia, pancytopenia, chronic hepatitis B, splenomegaly. The patient may benefit from ____ treat ment when he is placed as a long-term patient. 3. Dementia with agitated behavior. Continue Risperdal. Continue 1:1. Follow up clinically. We w ill discontinue 1:1 on Sunday and we will see the patient too. If he is stable, he can be discharged to long-term rehabilitation. 4. Hypertension, peripheral neuropathy. Continue Diovan 325, continue Norvasc 10 mg. We are also g oing to add clonidine p.r.n. for systolic hypertension 170 and above. Continue current therapy. Continue gastrointestinal and deep venous thrombosis prophylaxis. Barber Aguirre MD cc: [phone] TT: 10/08/2016 07:26:30 Confirmation # [id number] Dictation # [id number] sn
[2016-10-08] MEDS: Pantoprazole 20 mg EC Tab PO SCH (10:20)
[2016-10-08] MEDS: Aspirin 325 mg EC Tablets PO SCH (10:20)
--- NOTE | 2016-10-08 17:03 | PN ---
DATE: 10/08/2016 SUBJECTIVE: This patient was seen and evaluated earlier. The patient still remains confused. PHYSICAL EXAMINATION: VITAL SIGNS: Temperature is 98.7, pulse is 64, blood pressure 153/64. HEENT: Atraumatic, anicteric. NECK: Supple. HEART: S1, S2 heard. LUNGS: Bilateral air entry present. ABDOMEN: Soft. There is no mass palpable and there is no tenderness. 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 Was on Viread once weekly dose, but the patient became very noncompl iant and difficult to continue the medication. The patient can be resumed on the medication when his complaints and the medication can be safely ascertained. Liss Huber MD cc: [id number] TT: 10/08/2016 17:03:07 Confirmation # [id number] Dictation # [id number] [email or web address]
--- NOTE | 2016-10-09 00:35 | PN ---
DATE: 10/08/2016 HISTORY OF PRESENT ILLNESS: The patient was seen on the medical floor. Stable, no distress, no agit ations, still 1:1, no new complaint. PHYSICAL EXAMINATION: VITAL SIGNS: Temperature 98, heart rate 71, blood pressure 186/71, on repeat 153/64, respirations 17 , saturation 98% on room air. HEAD AND NECK: Normal. No JVD, no thyromegaly. CHEST: Clear, good entry. CARDIAC: First and second sounds are normal. ABDOMEN: Soft, nontender. EXTREMITIES: No edema. NEUROLOGIC: He is generally weak and gait disorder. IMPRESSION AND PLAN: 1. Chronic renal failure. Continue hemodialysis. Follow up with nephrology. The patient will go t o alf with dialysis unit. 2. Anemia, pancytopenia, splenomegaly, chronic rhinitis infections. Will continue current the rapy. Will follow up Dr. Huber recommendations. 3. The patient has severe dementia with on and off agitated behavior, continue Risperdal. 4. Hypertension, peripheral neuropathy, generalized weakness, gait disorder. Continue Dyazide and N orvasc and clonidine p.r.n. The patient already Seen by manufacturing engineering manager, and Dr. Liss peralta. He did recommend against giving the medication because of noncompliance and difficulty to contin ue medicine for him. Will discuss with him further. Continue current therapy. Barber Aguirre MD cc: [phone] TT: 10/09/2016 00:34:37 Confirmation # [id number] Dictation # [id number] mn
--- NOTE | 2016-10-09 08:57 | PN ---
DATE: 10/06/2016 The patient seen on the floor. Comfortable, no distress. ____ 1:1. ____ patient no complaint, no r espiratory distress. PHYSICAL EXAMINATION: As follows: VITAL SIGNS: Temperature 97.6, heart rate 66, blood pressure 153/____, respirations 20, and saturati on 99%. HEAD AND NECK: ____. No JVD. No thyromegaly. CHEST: ____ good air entry. CARDIAC: First sound, second sound normal. ABDOMEN: Soft, nontender. EXTREMITIES: No edema. NEUROLOGICAL: Generally ____. LABORATORY STUDIES: White count ____. ____ 55. Platelet count is ____. IMPRESSION AND PLAN: 1. Generalized weakness, gait disorder, recurrent falls. The patient ____ stable by himself ____ pl acement for custodial ____. 2. Chronic hemodialysis, chronic renal failure, on hemodialysis, stable. 3. Chronic ____, pancytopenia, thrombocytopenia. Follow up with the gastrointestinal. Possibility could benefit from ____ treatment. Will discuss with ____. 4. Dementia. Continue Aricept. 5. Hypertension. Currently on Norvasc. ____ stable. 6. Agitation. ____ tablets twice a day and follow up clinically. Continue current therapy. Continue GI and DVT prophylaxis. Barber Aguirre MD cc: [phone] TT: 10/08/2016 07:22:27 Confirmation # [id number] Dictation # [id number] sn
[2016-10-09] MEDS: Aspirin 325 mg EC Tablets PO SCH (09:18)
[2016-10-09] MEDS: Pantoprazole 20 mg EC Tab PO SCH (09:20)
--- NOTE | 2016-10-09 15:58 | PN ---
DATE: 10/09/2016 Seen and examined at bedside earlier this morning. No acute overnight events reported. The patient is on 1:1. The patient denies any nausea, vomiting, or abdominal pain. Was reported to have a large BM yesterday. The patient with decreased confusion. VITAL SIGNS: Temperature is 98.7, blood pressure 180/75, pulse 67, respirations 17, 100 O2 saturatio n. LABORATORY DATA: No new labs are noted for today. PHYSICAL EXAMINATION: HEENT: Sclerae are anicteric. NECK: Supple. CARDIAC: S1, S2. LUNGS: With decreased breath sounds but good air entry. No rales or wheeze. ABDOMEN: With bowel sounds, soft, nontender. No rebound or guarding. ASSESSMENT: A 75-year-old male with cirrhosis of the liver secondary to hepatitis/chronic hepatitis B; patient currently not on any treatment now. History of end-stage renal disease, on dialysis; rody roparesis, diabetes mellitus, chronic constipation and anemia. PLAN: The patient is noncompliant. He was on Viread in the past. The patient is awaiting placement . We will then consider resumption of medication when can be safely ascertained along with complianc e. The patient is on aspirin, on DVT prophylaxis, heparin; continue. The patient is on PPI and lact ulose p.r.n. constipation; he got a dose yesterday. The patient was seen and case discussed with Dr. Huber. Chanel BURNS cc: [id number] TT: 10/09/2016 15:57:46 Confirmation # [id number] Dictation # [id number] [email or web address]
--- NOTE | 2016-10-09 19:06 | PN ---
DATE: 10/09/2016 ADDENDUM This is an addendum to the GI progress report dictated by Chanel Schulz APN. The patient was seen and evaluated earlier. Finally, the patient did have bowel movements today with the lactulose. Appears to be more alert and less confused. The patient may benefit from the small dose of lactulose in his case and we will check his ammonia level in the a.m. The patient has chronic hep B cirrhosis, end-stage renal disease on hemodialysis. The patient was ventilated once we ekly. The patient complains of , but he is not on medication now. Plan to restart the medicati on again to avoid the interruption once the patient is in a long-term nursing facility. Thank you very much for allowing us to participate in the care of the patient. Liss Huber MD cc: [id number] TT: 10/09/2016 19:05:24 Confirmation # [id number] Dictation # [id number] mn
--- NOTE | 2016-10-09 20:06 | PN ---
DATE: 10/09/2016 SUBJECTIVE: The patient is a 75-year-old male currently being observed on the medical surgical unit. He has end-stage renal disease. He is on chronic hemodialysis. He is awaiting a longterm. He has a history of anemia, pancytopenia and severe dementia. The patient has been on 1:1 observation. I spoke earlier this morning with the nurse practitioner. The patient's mental status has been rel atively stable. We have stopped the patient's 1:1 observation. He has had no adverse events in the last 48 hours. He has been cooperative with his care. His mental status reveals that he is awake, h e is alert, he is disoriented, sitting in a chair at bedside, calm without any agitation. Affect con stricted, judgment poor, and memory poor. Disoriented to day and year. Recent memory poor. patient denies hallucinations, paranoia, or suicidal ideation. CURRENT MEDICATIONS: Include Apresoline, Aricept, Diovan, Ecotrin, Enulose, Lyrica, Norvasc, Protoni x, Renagel, Risperdal 0.25 mg b.i.d. LABORATORY DATA: The patient laboratory-simon has no new laboratory data to report. VITAL SIGNS: Blood pressure today earlier was 180/75, pulse 72, respirations 17 per minute, and afeb rile. REVIEW OF SYSTEMS: Noncontributory for a 12 point review. The patient is not a reliable historian. IMPRESSION: Dementia with past behavioral disturbance, none in the past 72 hours. The patient is to lerating psychotropic medicine without any ill effect. He has end-stage renal disease, he is on hemo dialysis. He has history of hypertension and a history of vitamin D deficiency. PLAN: His 1:1 observation was stopped today. Will continue to observe his mental status. Salas Costa MD cc: [phone] TT: 10/09/2016 20:05:44 Confirmation # [id number] Dictation # [id number] chelsy
[2016-10-10] MEDS: Pantoprazole 20 mg EC Tab PO SCH (09:42)
[2016-10-10 11:14] LABS: ADD MANUAL DIFF? NO
[2016-10-10 11:25] LABS: BASO # 0.05 K/mm3 (0.0-2.0); BASO % 1.1 % (0.0-3.0); EOS # 0.3 (0.0-0.7); EOS % 5.6 % (1.5-5.0); GRAN # 2.71 (1.4-6.5); GRAN % 61.1 % (50.0-68.0); HEMATOCRIT 33.1 % (42.0-52.0); LYMPH % 22.5 % (22.0-35.0); MEAN CELL VOLUME 83.8 fL (80.0-105.0); MEAN CORPUSCULAR HEMOGLOBIN 28.1 pg (25.0-35.0); MEAN CORPUSCULAR HGB CONC 33.5 g/dl (31.0-37.0); MONO # 0.4 (0.1-0.6); MONO % 9.7 % (1.0-6.0); PLATELET COUNT 100 10^3/uL (120.0-450.0); RED CELL DISTRIBUTION WIDTH 16.9 % (11.5-14.5); WHITE BLOOD COUNT 4.4 10^3/ul (4.5-11.0)
--- NOTE | 2016-10-10 11:27 | PN ---
DATE: 10/10/2016 Seen and examined at the bedside this morning. No acute overnight events reported. The patient is awake and alert, but does get confused at times. Denies any nausea, vomiting, or abdominal pain, shortness of breath or chest pain. VITAL SIGNS: 98.8, blood pressure 146/63, pulse 50, respirations 20, 99 on room air. LABORATORY DATA: Ammonia level this morning is less than 9. PHYSICAL EXAMINATION: HEENT: Sclerae are anicteric. NECK: Supple. CARDIAC: S1, S2. LUNGS: With decreased breath sounds at the bases with good air entry, no rales or wheeze. ABDOMEN: With bowel sounds, soft, nontender. EXTREMITIES: No edema. NEUROLOGIC: The patient is awake and alert with confusion at times, but is pleasant. ASSESSMENT: Cirrhosis of liver secondary to chronic hepatitis B, history of end -stage renal disease on dialysis, diabetes mellitus, chronic constipation, anemia, gastroparesis. PLAN: Continue current treatment. The patient is awaiting placement. The patient is off Viread. He is not getting treatment for hepatitis B. The patient has history of noncompliance. Treatment for hepatitis B, we will reconsider treatment once we can safely ascertain compliance with medication. Continue GI prophylaxis, DVT prophylaxis. The patient is on lactulose p.r.n. constipation. The patient was seen and case discussed with Dr. Huber. The patient also with dementia. Chanel BURNS cc: [id number] TT: 10/10/2016 11:26:52 Confirmation # [id number] Dictation # [id number] tn MTDD
[2016-10-10 11:38] LABS: ALB/GLOB RATIO 0.9 (1.1-1.8); BILIRUBIN,TOTAL 0.4 mg/dL (0.2-1.3); CALCIUM 10.1 mg/dL (8.4-10.5); MAGNESIUM 2.8 mg/dL (1.7-2.2); PHOSPHOROUS 6.7 mg/dL (2.5-4.5); TOTAL PROTEIN 7.5 g/dL (5.8-8.3); URIC ACID 6.3 mg/dL (3.5-8.5)
[2016-10-10 11:45] LABS: IRON 71 ug/dL (45-180)
[2016-10-10] MEDS: Aspirin 325 mg EC Tablets PO SCH (15:30)
--- NOTE | 2016-10-10 19:54 | PN ---
DATE: 10/10/2016 ADDENDUM This is an addendum to the GI progress report dictated by Chanel Schulz APN. The patient is more aler t. The patient still remains confused. Abdomen is soft. There is no tenderness. The patient did r eceive lactulose yesterday. The patient's ammonia level has been okay, normal. The patient has hepa titis B, on Viread. We will resume the treatment. Would recommend to resume the treatment if the pa tient in a care home setting, long-term setting. Thank you very much for allowing me to participate in the care of the patient. Liss Huber MD cc: [phone] TT: 10/10/2016 19:53:18 Confirmation # [id number] Dictation # [id number] dn
--- NOTE | 2016-10-10 20:56 | CP.PCM.PN ---
Subjective - Date & Time of Evaluation Date of Evaluation: 10/10/16 Time of Evaluation: 20:56 - Subjective Subjective: Patient was examined at bedside. He told me that this is 2017 but answered all other questions to determine his orientation wrong. states that he wants to go home. He was given ativan 0.5 mg PO once and that was not helpful so later on he was given Geodon 20 mg IM which helped him. This 75 year old man was admitted for confusion, dementia. Has PMH of HTN, peripheral neuropathy, chronic renal failure, dementia, chronic hepatitis B, renal mass, intermittent agitation. Objective - Vital Signs/Intake and Output Vital Signs (last 24 hours): Temp Pulse Resp BP Pulse Ox 97.1 F L 76 20 135/64 98 10/10/16 16:00 10/10/16 16:00 10/10/16 16:00 10/10/16 16:00 10/10/16 16:00 Intake and Output: 10/10/16 10/11/16 18:59 06:59 Intake Total 0 Output Total 300 Balance -300 - Medications Medications: Current Medications Amlodipine Besylate (Norvasc) 10 mg PO DAILY [facility] Last Admin: 10/10/16 15:30 Dose: 10 mg Aspirin (Ecotrin) 325 mg PO DAILY [facility] Last Admin: 10/10/16 15:30 Dose: 325 mg Cholecalciferol (Vitamin D) 2,000 iu PO DAILY [facility] Last Admin: 10/10/16 15:30 Dose: 2,000 iu Clonidine HCl (Catapres) 0.1 mg PO Q8H PRN PRN Reason: Systolic Blood Pressure Last Admin: 10/03/16 20:30 Dose: 0.1 mg Donepezil HCl (Aricept) 10 mg PO HS [facility] Last Admin: 10/09/16 21:03 Dose: 10 mg Heparin Sodium (Porcine) (Heparin) 5,000 units SC Q12 [facility] PRN Reason: Protocol Last Admin: 10/10/16 09:41 Dose: Not Given Hydralazine HCl (Apresoline) 50 mg PO BID [facility] Last Admin: 10/10/16 17:38 Dose: 50 mg Lactulose (Enulose) 20 gm PO DAILY PRN PRN Reason: Constipation Pantoprazole Sodium (Protonix Ec Tab) 20 mg PO DAILY [facility] Last Admin: 06/13/17 09:42 Dose: Not Given Pregabalin (Lyrica) 50 mg PO BID [facility] Last Admin: 10/10/16 17:38 Dose: 50 mg Risperidone (Risperdal Tab) 0.25 mg PO 1000,1800 [facility] Last Admin: 10/10/16 17:38 Dose: 0.25 mg Sevelamer HCl (Renagel) 1,600 mg PO ACTID [facility] Last Admin: 10/10/16 17:38 Dose: 1,600 mg Valsartan (Diovan) 320 mg PO DAILY [facility] Last Admin: 10/10/16 15:30 Dose: 320 mg - Labs Labs: 10/10/16 11:00 10/10/16 11:00 PT 11.5 Seconds (9.9-11.8) 10/02/16 18:30 INR 1.06 (0.93-1.08) 10/02/16 18:30 APTT 33.8 Seconds (23.7-30.8) H 10/02/16 18:30 - Constitutional Appears: Well, Agitated - Head Exam Head Exam: ATRAUMATIC, NORMAL INSPECTION, NORMOCEPHALIC - Eye Exam Eye Exam: Normal appearance - ENT Exam ENT Exam: Normal External Ear Exam - Neck Exam Neck Exam: Normal Inspection - Respiratory Exam Respiratory Exam: NORMAL BREATHING PATTERN - Cardiovascular Exam Cardiovascular Exam: absent: JVD - GI/Abdominal Exam GI & Abdominal Exam: absent: Distended - Rectal Exam Rectal Exam: Deferred - Extremities Exam Extremities Exam: Normal Inspection - Back Exam Back Exam: NORMAL INSPECTION - Neurological Exam Neurological Exam: Altered - Psychiatric Exam Psychiatric exam: Agitated - Skin Skin Exam: Normal Color Assessment and Plan - Assessment and Plan (Free Text) Assessment: Agitation. Dementia. Hypertension. Peripheral neuropathy. Chronic hepatitis B. Chronic renal failure. Plan: Ativan 0.5 mg PO was given. Geodon 20 mg IM was ordered. Continue present management. Will get 1:1 watch prn.
--- NOTE | 2016-10-11 05:19 | CP.PCM.PN ---
Subjective - Date & Time of Evaluation Date of Evaluation: 10/10/16 Time of Evaluation: 10:00 - Subjective Subjective: Patient reports some pain in L ankle, otherwise no complaints; tolerating diet; Objective - Vital Signs/Intake and Output Vital Signs (last 24 hours): Temp Pulse Resp BP Pulse Ox 97.1 F L 76 20 135/64 98 10/10/16 16:00 10/10/16 16:00 10/10/16 16:00 10/10/16 16:00 10/10/16 16:00 Intake and Output: 10/10/16 10/11/16 18:59 06:59 Intake Total 0 180 Output Total 300 0 Balance -300 180 - Medications Medications: Current Medications Amlodipine Besylate (Norvasc) 10 mg PO DAILY [facility] Last Admin: 10/10/16 15:30 Dose: 10 mg Aspirin (Ecotrin) 325 mg PO DAILY [facility] Last Admin: 10/10/16 15:30 Dose: 325 mg Cholecalciferol (Vitamin D) 2,000 iu PO DAILY [facility] Last Admin: 10/10/16 15:30 Dose: 2,000 iu Clonidine HCl (Catapres) 0.1 mg PO Q8H PRN PRN Reason: Systolic Blood Pressure Last Admin: 10/03/16 20:30 Dose: 0.1 mg Donepezil HCl (Aricept) 10 mg PO HS [facility] Last Admin: 10/10/16 21:19 Dose: 10 mg Heparin Sodium (Porcine) (Heparin) 5,000 units SC Q12 [facility] PRN Reason: Protocol Last Admin: 10/10/16 21:19 Dose: 5,000 units Hydralazine HCl (Apresoline) 50 mg PO BID [facility] Last Admin: 10/10/16 17:38 Dose: 50 mg Lactulose (Enulose) 20 gm PO DAILY PRN PRN Reason: Constipation Lorazepam (Ativan) 0.5 mg PO Q6 PRN; Protocol PRN Reason: Agitation Pantoprazole Sodium (Protonix Ec Tab) 20 mg PO DAILY [facility] Last Admin: 10/10/16 09:42 Dose: Not Given Pregabalin (Lyrica) 50 mg PO BID [facility] Last Admin: 10/10/16 17:38 Dose: 50 mg Risperidone (Risperdal Tab) 0.25 mg PO 1000,1800 [facility] Last Admin: 06/13/17 17:38 Dose: 0.25 mg Risperidone (Risperdal Tab) 0.25 mg PO HS [facility] PRN Reason: Protocol Last Admin: 10/10/16 21:45 Dose: Not Given Sevelamer HCl (Renagel) 2,400 mg PO ACTID [facility] Valsartan (Diovan) 320 mg PO DAILY [facility] Last Admin: 10/10/16 15:30 Dose: 320 mg - Labs Labs: 10/10/16 11:00 10/10/16 11:00 PT 11.5 Seconds (9.9-11.8) 10/02/16 18:30 INR 1.06 (0.93-1.08) 10/02/16 18:30 APTT 33.8 Seconds (23.7-30.8) H 10/02/16 18:30 - Constitutional Appears: Well, No Acute Distress - Head Exam Head Exam: NORMAL INSPECTION - Eye Exam Eye Exam: Normal appearance. absent: Scleral icterus - ENT Exam ENT Exam: Mucous Membranes Moist - Respiratory Exam Respiratory Exam: Clear to Ausculation Bilateral, NORMAL BREATHING PATTERN - Cardiovascular Exam Cardiovascular Exam: RRR, +S1, +S2 - GI/Abdominal Exam GI & Abdominal Exam: Soft. absent: Distended, Tenderness - Extremities Exam Extremities Exam: Normal Capillary Refill - Neurological Exam Neurological Exam: Alert, Awake - Psychiatric Exam Psychiatric exam: Normal Affect, Normal Mood - Skin Skin Exam: Warm. absent: Cyanosis Assessment and Plan (1) ESRD (end stage renal disease) Assessment & Plan: Relatively stable volume and electrolyte status; getting HD today per routine; Status: Acute (2) HTN (hypertension) Assessment & Plan: BP improved after increasing hydralazine to 50 mg bid; monitor, continue rest of anti-htn meds; Status: Acute (3) Chronic kidney disease-mineral and bone disorder Assessment & Plan: Phos increased despite increasing sevelamer; Ca at high end of normal; -awaiting PTH level -d/c vitamin D -increase sevelamer to 2400 mg tid with meals Status: Acute (4) Hepatitis B Assessment & Plan: Untreated; will need to redress with GI 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
--- NOTE | 2016-10-11 08:09 | PN ---
DATE: 10/10/2016 HISTORY OF PRESENT ILLNESS: The patient is a 75-year-old -Martiniquais male who was originally ad mitted to the hospital for change in mental status. The patient had been increasingly confused. He has end-stage renal disease. He is on hemodialysis. The patient has had some behavioral disturbance previously, has chronic hepatitis B and anemia, leukopenia, pancytopenia. The patient is awaiting a acute rehabilitation bed. He has been followed by the GI homemaking rehabilitation consultant. The patient has cirrhosis of the liver secondary to hepatitis B. The patient also has gastroparesis. The patient's current ment al status is as follows: He is confused. He is without 1:1 observation. He is at times trying to o ccasionally climb out of bed, but he has no hallucinations, paranoia or suicidal ideation or self-liya tructive urges. His recent remote memory and judgment are significantly impaired. CURRENT MEDICATIONS: Include Apresoline, Aricept, Catapres, Diovan, Ecotrin, Enulose, heparin, Lizeth a, Norvasc, Protonix, Renagel, risperidone 0.25 mg twice a day, and vitamin D. LABORATORY DATA: White count is 4400, his hemoglobin is 11.1 and platelet count is 100,000. His met abolic profile is sodium 132, potassium 5.0, chloride 100, his CO2 is 19, anion gap 18, BUN 76, creat inine 7.5, estimated GFR 9, phosphorus is 6.7, magnesium 2.8, random glucose 109. His serum iron is 71, total iron binding capacity is 215. Ferritin level is 150. The patient's B12 level is 795. Vit wright D is 23.5. VITAL SIGNS: Blood pressure is 146/63, pulse 58, afebrile, respirations 20 per minute. IMPRESSION: The patient has vascular dementia with behavioral disturbance relatively stable now. He has end-stage renal disease. He is on hemodialysis. He has hepatitis B with cirrhosis. He has vit wright D deficiency and hypertension. PLAN: We will continue to monitor mental status and continue on Risperdal 0.25 mg b.i.d. Salas Costa MD cc: [phone] TT: 10/10/2016 18:49:49 Confirmation # [id number] Dictation # [id number] mn
[2016-10-11 08:12] VITALS: O2SAT 100
[2016-10-11] MEDS: Pantoprazole 20 mg EC Tab PO SCH (10:55)
[2016-10-11] MEDS: Aspirin 325 mg EC Tablets PO SCH (10:55)
--- NOTE | 2016-10-11 11:49 | PN ---
DATE: 10/09/2016 The patient is comfortable. He gets agitation on and off, but seems comfortable now, confused on and off. No physical distress, and he seems stable. PHYSICAL EXAMINATION: On 10/09/2016: VITAL SIGNS: Temperature 98, heart rate 67, blood pressure 126/57, respirations 18, saturation 99%. HEAD AND NECK: Normal. No JVD. No thyromegaly. CHEST: Clear, good air entry. CARDIAC: First and second sounds are normal. ABDOMEN: Soft, nontender. EXTREMITIES: No edema. NEUROLOGIC: He is generally weak, small muscles, and also confused and demented. LABORATORY STUDY: Shows sodium 134, potassium 4.2, chloride 99, bicarbonate 20, BUN 66, creatinine 6 .8, blood sugar 183. His phosphorus is 6. IMPRESSION AND PLAN: 1. Chronic renal failure. Continue hemodialysis. 2. Dementia associated with aggressive behavior. 3. Dementia. 4. Generalized weakness. PLAN: 1. Continue physical therapy. Continue Ativan p.r.n. The patient is also getting Risperdal. Seen by psychiatrist. 2. Hypertension. Continue current meds. Follow up with the environmental services manager. 3. Chronic hep-B, renal mass. Discussed with GI. No treatment for hepatitis B at this time. The p everette is terminally sick. He is on dialysis, and that is not ____ for his life expectancy. At this time, we will continue current treatment. CURRENT MEDICATIONS: Getting hydralazine 50 mg once a day, Aricept, Ativan p.r.n., Catapres 0.1 p.r .n. for systolic more than 170, Diovan 320, aspirin 325 p.o. daily, lactulose p.r.n. for constipation , heparin subQ, Lyrica 50 b.i.d., Norvasc 10 mg daily, Protonix 40 mg p.o. daily, Renagel 2400 mg 3 t imes a day, and Risperdal 0.25 mg b.i.d. and at bedtime. Continue current therapy, follow up clinica lly. Barber Aguirre MD cc: [phone] TT: 10/11/2016 11:48:11 Confirmation # [id number] Dictation # [id number] jn
--- NOTE | 2016-10-11 11:57 | PN ---
DATE: 10/10/2016 The patient is comfortable. He does get agitated, as per nurses. Right now, no restraint, seems sta ble. No distress. No 1:1. He seems comfortable at this time and with no other complaint. He did c omplain of his feet - his toes, his feet discomfort, otherwise stable. PHYSICAL EXAMINATION: On 10/10/2016: VITAL SIGNS: Temperature 97.4, heart rate 76, blood pressure 135/64, respirations 20, saturation 98% . HEAD AND NECK: Normal. No JVD, no thyromegaly. CHEST: Clear, good air entry. CARDIAC: First and second sounds are normal. ABDOMEN: Soft, nontender. EXTREMITIES: No edema. NEUROLOGIC: Generalized weakness. His toes look normal. LABORATORY STUDIES: Sodium 132, potassium 5, chloride 100, bicarb 19, BUN 76, creatinine 7.6. His p hosphorus is 6.7. His magnesium is 2.8. His total iron binding capacity is 212, which is low. His iron is 71, which is normal. Iron saturation 33, ferritin 150. The patient also had ammonia level, which was less than 9. Vitamin D was low. IMPRESSION AND PLAN: Will get the CBC. CBC also shows white count 4.4, hemoglobin 11.1, hematocrit 33.1, platelets 100. IMPRESSION AND PLAN: 1. Chronic renal failure. Continue hemodialysis. Continue current meds. The patient is getting Re alexia. His hemoglobin is stable. He is currently on hemodialysis, doing good. 2. Chronic hepatitis B probably liver cirrhosis. Continue management medically. No antiviral thera py, as per GI, for this particular case because of his associated dementia and behavior disorder. We will follow up clinically. 3. Hypertension. The patient's blood pressure is stable. Continue current medicines - Diovan, hydr alazine, clonidine p.r.n. 4. The patient had dementia associated with behavior disorders, seems to be doing okay with that Ris perdal, Ativan p.r.n. The patient was seen by psychiatrist. Continue current management. He is off 1:1, seems to be doing okay with that. 5. Anemia, pancytopenia. The patient is stable. His iron study seems okay. We will continue curre nt treatment for now. We will follow up clinically. Continue Aricept, continue physical therapy. Barber Aguirre MD cc: [phone] TT: 10/11/2016 11:57:08 Confirmation # [id number] Dictation # [id number] jn
--- NOTE | 2016-10-11 16:11 | CARD ---
APPROVED REPORT EKG Measurement Heart [id number] <Conclusion> Normal sinus rhythm Cannot rule out Inferior infarct, age undetermined Abnormal ECG
--- NOTE | 2016-10-11 16:27 | CP.PCM.CON ---
History of Present Illness - History of Present Illness History of Present Illness: PODIATRY CONSULT NOTE 75-year-old male with ESRD on hemodialysis with PMH of dementia seen concerning potential lower extremity cause for frequent falls and generalized weakness. Pt reports back pain. Pt states his he has experienced more falls recently, and ambulated with the aid a a single point cane. Pt denies history of stroke or any kind of ischemic cerebral incident. Patient states that he currently has no complaints of any acute pain or any loss of consciousness during his falls. Patient denies recent fever/ chills/ chest pain/ sob/ nausea/ vomiting. . Past Patient History - Infectious Disease Hx of Infectious Diseases: None - Tetanus Immunizations Tetanus Immunization: Unknown - Past Medical History & Family History Past Medical History?: Yes - Past Social History Smoking Status: Never Smoked - CARDIAC Hx Cardiac Disorders: Yes Hx Hypertension: Yes - PULMONARY Hx Chronic Obstructive Pulmonary Disease (COPD): No - NEUROLOGICAL HX Cerebrovascular Accident: No - HEENT Hx HEENT Problems: No (WEARS RX GLASSES) - RENAL Hx Renal Failure: Yes (HD (//Sun)) - ENDOCRINE/METABOLIC Hx Diabetes Mellitus Type 2: Yes - HEMATOLOGICAL/ONCOLOGICAL Hx Blood Disorders: Yes Hx Anemia: Yes Hx Hepatitis B: Yes - INTEGUMENTARY Hx Dermatological Problems: Yes (Bullous pemphigoid) - MUSCULOSKELETAL/RHEUMATOLOGICAL Hx Arthritis: Yes - GASTROINTESTINAL Hx Gastrointestinal Disorders: Yes (CONSTIPATION) - GENITOURINARY/GYNECOLOGICAL Hx Genitourinary Disorders: Yes (OLIGURIA,ESRD ON HEDMODIALYSIS) - PSYCHIATRIC Hx Psychophysiologic Disorder: No Hx Emotional Abuse: No Hx Physical Abuse: No Hx Substance Use: No - SURGICAL HISTORY Hx Surgeries: Yes Hx Cardiac Catheterization: No Hx Coronary Stent: No Other/Comment: L arm shunt - ANESTHESIA Hx Anesthesia Reactions: No Hx Malignant Hyperthermia: No Meds Allergies/Adverse Reactions: Allergies Allergy/AdvReac Type Severity Reaction Status Date / Time No Known Allergies Allergy Verified 10/02/16 17:27 - Medications Medications: Current Medications Amlodipine Besylate (Norvasc) 10 mg PO DAILY [facility] Last Admin: 10/11/16 10:56 Dose: 10 mg Aspirin (Ecotrin) 325 mg PO DAILY [facility] Last Admin: 10/11/16 10:55 Dose: 325 mg Clonidine HCl (Catapres) 0.1 mg PO Q8H PRN PRN Reason: Systolic Blood Pressure Last Admin: 10/03/16 20:30 Dose: 0.1 mg Donepezil HCl (Aricept) 10 mg PO HS [facility] Last Admin: 10/10/16 21:19 Dose: 10 mg Heparin Sodium (Porcine) (Heparin) 5,000 units SC Q12 [facility] PRN Reason: Protocol Last Admin: 10/11/16 10:57 Dose: 5,000 units Hydralazine HCl (Apresoline) 50 mg PO BID [facility] Last Admin: 10/11/16 10:55 Dose: 50 mg Lactulose (Enulose) 20 gm PO DAILY PRN PRN Reason: Constipation Pantoprazole Sodium (Protonix Ec Tab) 20 mg PO DAILY [facility] Last Admin: 10/11/16 10:55 Dose: 20 mg Pregabalin (Lyrica) 50 mg PO BID [facility] Last Admin: 10/11/16 10:56 Dose: 50 mg Risperidone (Risperdal Tab) 0.5 mg PO 1000,1600 [facility] Risperidone (Risperdal Tab) 0.5 mg PO HS [facility] Sevelamer HCl (Renagel) 2,400 mg PO ACTID [facility] Last Admin: 10/11/16 12:07 Dose: 2,400 mg Valsartan (Diovan) 320 mg PO DAILY [facility] Last Admin: 10/11/16 12:07 Dose: 320 mg Ziprasidone (Geodon Inj) 10 mg IM Q6H PRN PRN Reason: Agitation Physical Exam - Constitutional Appears: Well, Non-toxic, In Acute Distress - Extremities Exam Additional comments: VASC: DP and PT pedal pulses bilaterally were graded 1/4. Capillary refill time to level of digits was <4 seconds. Temperature gradient runs normal. No pedal edema noted. No calf tenderness bilaterally. DERM: Bilateral 4th interspace maceration with mal-odor noted, and skin flaking. No open wounds, lesions, or macerations noted bilaterally. Skin is thin bilaterally, though supple. NEURO: Protective sensation if grossly diminished bilaterally. Negative Babinski bilaterally. MUSCK: Left foot and leg decreased muscle tone, density, and definition noted compared to contra-lateral limb. No tenderness to palpations noted bilaterally. Pedal muscle strength weak on right side but graded 5/5 in all 4 major pedal muscle groups. Pedal muscle strength in left lower extremity is graded 3/5 in all 4 major pedal muscle groups. - Neurological Exam Neurological exam: Alert, Oriented x3 - Psychiatric Exam Psychiatric exam: Normal Affect, Normal Mood Results - Vital Signs Recent Vital Signs: Last Vital Signs Temp 97.4 F L 10/11/16 08:12 Pulse 77 10/11/16 10:55 Resp 18 10/11/16 08:12 BP 174/81 H 10/11/16 10:56 Pulse Ox 100 10/11/16 08:12 - Labs Result Diagrams: 10/10/16 11:00 10/10/16 11:00 Labs: Laboratory Results - last 24 hr 10/10/16 10/10/16 11:00 11:00 Sodium 132 Potassium 5.0 Chloride 100 Carbon Dioxide 19 L Anion Gap 18 BUN 76 H Creatinine 7.5 H Est GFR ( Amer) 9 Est GFR (Non-Af Amer) 7 Random Glucose 109 Uric Acid 6.3 Calcium 10.1 Phosphorus 6.7 H Magnesium 2.8 H Ferritin 150.0 Total Bilirubin 0.4 AST 31 ALT 26 Alkaline Phosphatase 79 Total Protein 7.5 Albumin 3.5 Globulin 3.9 Albumin/Globulin Ratio 0.9 L PTH Intact Whole Molec 444 H Assessment & Plan - Assessment and Plan (Free Text) Assessment: 75 year old male with bilateral lower extremity weakness, left leg muscle atrophy, and tinea pedis. Plan: Pt was evaluated and treated with attending Dr. Quiñones present. Chart, labs, and vitals were reviewed. Ordered Lotrisone for used on feet bilaterally. Pt to continue physical therapy for gait training and balancing with additional use of rolling walker. Ordered Arterial duplex bilaterally. Full weightbearing activity Podiatry will continue to follow. - Date & Time Date: 10/11/16 Time: 16:10
[2016-10-11] MEDS: Clotrimazole/Betamethasone Cream(15 gm) TOP SCH (17:59)
--- NOTE | 2016-10-12 08:12 | PN ---
DATE: 10/11/2016 HISTORY OF PRESENT ILLNESS: The patient is a 75-year-old -Pakistani male who is currently bein g treated on the medical/surgical department for delirium, for end-stage renal disease with hemodialy sis. The patient also has chronic hepatitis B with cirrhosis. The patient has had behavioral distur bance in recent past and has pancytopenia. The patient's current mental status reveals that he is aw marc, he is alert, he is confused. His recent memory is poor, as are his judgment and insight. No ag itation, no hallucinations. No suicidal ideation. The patient is oriented to place and person only. I spoke at length with patient's daughter at the bedside who believes his mental status over the mo nths has deteriorated. CURRENT MEDICATIONS: Include Apresoline, Aricept, Ativan q.6 h. p.r.n., heparin, Lyrica, Norvasc, Pr otonix, Renagel, Risperdal 0.25 mg b.i.d. I reviewed the patient's nurse's note. Last night the patient was agitated in the early evening, gay roximately 9:30, yelling, screaming. VITAL SIGNS: Blood pressure is 174/81, respirations 18 per minute, pulse 77, and afebrile. IMPRESSION: Dementia with behavioral disturbance, end-stage renal disease, cirrhosis related to hepa titis B, hypertension. PLAN: I will increase Risperdal to 0.5 mg b.i.d. and at bedtime and will leave an order for p.r.n. G eodon 10 mg IM q.4 h. p.r.n. for agitation. Salas Costa MD cc: [phone] TT: 10/11/2016 15:27:02 Confirmation # [id number] Dictation # [id number]
--- NOTE | 2016-10-12 08:56 | PN ---
DATE: 10/11/2016 The patient seems stable, comfortable. No agitations. The patient waiting for long-term placemen t. Otherwise, no new complaint. Eating and seems stable. PHYSICAL EXAMINATION: VITAL SIGNS: Temperature 97.4, heart rate 69, blood pressure is 163/67, respirations 18, saturation 100%. HEAD AND NECK: Normal. No JVD, no thyromegaly. CHEST: Clear, good air entry. CARDIAC: First sound, second sound normal. ABDOMEN: Soft, nontender. EXTREMITIES: No edema. NEUROLOGIC: Normal. IMPRESSION AND PLAN: 1. Chronic renal failure. Continue hemodialysis. Follow up clinically. 2. Hypertension, hypercholesterolemia. Continue current medicines: Norvasc 10 mg and Diovan 320 in addition to Catapres 0.1 q. 8 hours p.r.n. The patient also getting hydralazine 50 mg twice a day; will increase that to 3 times a day. 3. Generalized weakness, gait disorder. The patient will need long-term placement in addition to continue good physical therapy. 4. Dementia with agitation and behavioral disorder. Seems stable now. Currently on Geodon 10 mg IM every 6 hours. In addition, he is getting Aricept 10 mg at bedtime. The patient also getting Neuro ntin 50 mg b.i.d., also Risperdal 0.5 mg t.i.d. Continue current management. Continue GI and DVT pr ophylaxis. Follow up clinically. Barber Aguirre MD cc: [phone] TT: 10/12/2016 08:56:41 Confirmation # [id number] Dictation # [id number] mn
[2016-10-12] MEDS: Aspirin 325 mg EC Tablets PO SCH (09:24)
[2016-10-12] MEDS: Pantoprazole 20 mg EC Tab PO SCH (09:24)
[2016-10-12] MEDS: Clotrimazole/Betamethasone Cream(15 gm) TOP SCH (09:34)
[2016-10-12 10:44] LABS: ADD MANUAL DIFF? NO
[2016-10-12 10:47] LABS: BASO # 0.05 K/mm3 (0.0-2.0); BASO % 1.1 % (0.0-3.0); EOS # 0.2 (0.0-0.7); EOS % 4.1 % (1.5-5.0); GRAN # 3.03 (1.4-6.5); HEMATOCRIT 33.1 % (42.0-52.0); LYMPH # 0.8 (1.2-3.4); LYMPH % 17.1 % (22.0-35.0); MEAN CELL VOLUME 84.7 fL (80.0-105.0); MEAN CORPUSCULAR HEMOGLOBIN 27.9 pg (25.0-35.0); MEAN CORPUSCULAR HGB CONC 32.9 g/dl (31.0-37.0); MONO # 0.4 (0.1-0.6); MONO % 8.7 % (1.0-6.0); PLATELET COUNT 96 10^3/uL (120.0-450.0); RED CELL DISTRIBUTION WIDTH 16.9 % (11.5-14.5); WHITE BLOOD COUNT 4.4 10^3/ul (4.5-11.0)
--- NOTE | 2016-10-12 10:57 | PN ---
DATE: 10/12/2016 Seen and examined at the bedside earlier this morning. The patient is out of bed in a chair, eating breakfast. The patient did have a bowel movement yesterday. No reports of diarrhea. The patient de nies any nausea, vomiting, or abdominal pain. VITAL SIGNS: Temperature is 98.5, blood pressure 163/71, pulse 74, respirations 18, O2 is 100 on [place] m air. No new labs are noted for today. PHYSICAL EXAMINATION: HEENT: Sclerae are anicteric. NECK: Supple. CARDIAC: S1, S2. LUNGS: With decreased breath sounds, but good air entry, no rales or wheeze. ABDOMEN: With bowel sounds, soft, nontender. EXTREMITIES: No edema. NEUROLOGIC: The patient is awake and alert. ASSESSMENT: The patient with chronic renal failure. He is on hemodialysis. This patient with cirrh osis of the liver, likely secondary to chronic hepatitis B, chronic constipation, anemia, diabetes me llitus. PLAN: The patient is awaiting placement in assisted, currently off Viread. We will consider res tarting treatment once we can safely ascertain compliance with medication. The patient is currently on GI prophylaxis, DVT prophylaxis and is also on lactulose p.r.n. The patient was seen and case dis cussed with Dr. Huber. Chanel BURNS cc: [phone] TT: 10/12/2016 10:56:35 Confirmation # [id number] Dictation # [id number] tn
[2016-10-12 10:58] LABS: ALB/GLOB RATIO 0.9 (1.1-1.8); BILIRUBIN,TOTAL 0.4 mg/dL (0.2-1.3); CALCIUM 10.2 mg/dL (8.4-10.5); MAGNESIUM 2.8 mg/dL (1.7-2.2); PHOSPHOROUS 5.9 mg/dL (2.5-4.5); POTASSIUM 4.6 mmol/L (3.6-5.0); TOTAL PROTEIN 7.7 g/dL (5.8-8.3)
--- NOTE | 2016-10-12 13:13 | PN ---
DATE: 10/12/2016 HISTORY OF PRESENT ILLNESS: The patient is a 75-year-old -Uz[place] male currently being treat ed for renal failure. He is on hemodialysis. He also has dementia and being treated for behavioral disturbances. The patient is interviewed today while getting hemodialysis. He is awake. He is aler t, disoriented to month and day and year. He is oriented to place and person. The patient's doses o f Risperdal were increased yesterday due to recent behavioral disturbance. The patient is awake. Th e patient's recent memory is poor. His judgment and insight are poor. However, he is calm and coope rative during the interview. I reviewed nursing notes. The patient had no adverse events during the night except for confusion. CURRENT MEDICATIONS: Include Risperdal 0.5 mg b.i.d. and at bedtime. He has an order for Aricept, C atapres, Diovan, Ecotrin, lactulose, p.r.n. Geodon, heparin, Lyrica, Norvasc, Protonix, Renagel. VITAL SIGNS: His blood pressure is 163/71, pulse 74, respirations 18 per minute and is afebrile. LABORATORY DATA: His white count 4400, hemoglobin 10.9, platelet count 96,000. Metabolic profile: Sodium 135, potassium 4.6, chloride 104, CO2 19, anion gap 17, BUN 65, creatinine 7.0. Estimated GFR of 9, glucose of 153, phosphorus 5.9, magnesium 2.8. REVIEW OF SYSTEMS: No chest pain or shortness of breath. Does have some bilateral leg pain. Rest o f 10-point review noncontributory, but unreliable. IMPRESSION: The patient has chronic dementia, progressive with recent behavioral disturbance. The p atient has end-stage renal disease, hemodialysis. He has hypertension, chronic pain, vitamin D defic iency, coronary artery disease. PLAN: Continue Risperdal 0.5 mg b.i.d. and at bedtime and we will continue to monitor mental status. Salas Costa MD cc: [phone] TT: 10/12/2016 13:12:33 Confirmation # [id number] Dictation # [id number] tn
--- NOTE | 2016-10-12 15:29 | CP.PCM.PN ---
Subjective - Date & Time of Evaluation Date of Evaluation: 10/12/16 Time of Evaluation: 11:40 - Subjective Subjective: Follow up Nephrology Covering for Dr Garcia Assessment: End stage renal disease (N18.6) on hemodialysis (Z99.2) (TTS) via AVF Anemia (D64.9), Hyperphosphatemia (E83.39), Secondary hyperparathyroidism, HTN ( N12.0) Plan: Will plan for HD today as ordered.Continue with Nephrovite 1 tab/day. Not on SHANA as last Hb 10.9. TSAT 33% Ferritin 150 Continue with phos binders renagel Phos 6.7 added sensipar 30 mg/day Last PTH level 444. Vit D 23 BP control with meds as ordered. Patient on RAAS neo as Diovan Glycemic control, Dialysis consistent diet Further work up/management as per primary team, Podiatry Dose meds/antibiotics (if needed) for ESRD status. Avoid fleets enema/magnesium based laxatives. Thanks for allowing me to participate in care of your patient. Will follow patient with you. Please call if any Qs Dr Octavio Brooks Office: [phone] Subjective: Noted events overnight. Patients feels okay. Denies chest pain, palpitation, shortness of breath, leg swelling. No urinary complaints Physical Examination: Pt seen during dialysis in isolation room General Appearance: Comfortable, in no acute respiratory distress, co- operative. Vitals reviewed and noted as below Lungs: Normal respiratory rate/effort. Breath sounds bilateral equal and clear Heart: Normal rate. s1s2 normal. No rub or gallop. Extremities: no edema. left foot toe was dressed. Neurological: Patient is alert, awake and oriented to person, place and time. No focal deficit. Strength bilateral appropriate and equal Skin: Warm and dry. Normal turgor. No rash. Palpitation: Normal elasticity for age Abdomen: Abdomen is soft. Bowel sounds +. There is no abdominal tenderness, no guarding/rigidity or organomegaly : kidney or bladder not palpable Access: AVF Labs/imaging reviewed. Past medical history, past surgical history, family history, social history, allergy reviewed Objective - Vital Signs/Intake and Output Vital Signs (last 24 hours): Temp Pulse Resp BP Pulse Ox 98.5 F 74 18 163/71 H 100 10/12/16 09:18 10/12/16 09:18 10/12/16 09:18 10/12/16 09:18 10/12/16 09:18 Intake and Output: 10/12/16 10/12/16 06:59 18:59 Intake Total 180 Output Total 0 Balance 180 - Medications Medications: Current Medications Amlodipine Besylate (Norvasc) 10 mg PO DAILY [facility] Last Admin: 10/12/16 09:30 Dose: Not Given Aspirin (Ecotrin) 325 mg PO DAILY [facility] Last Admin: 10/12/16 09:24 Dose: 325 mg Betamethasone/Clotrimazole (Lotrisone) 1 gm TOP BID [facility] Last Admin: 10/12/16 09:34 Dose: 1 applic Clonidine HCl (Catapres) 0.1 mg PO Q8H PRN PRN Reason: Systolic Blood Pressure Last Admin: 10/03/16 20:30 Dose: 0.1 mg Donepezil HCl (Aricept) 10 mg PO HS [facility] Last Admin: 10/11/16 22:18 Dose: 10 mg Heparin Sodium (Porcine) (Heparin) 5,000 units SC Q12 [facility] PRN Reason: Protocol Last Admin: 10/12/16 09:24 Dose: 5,000 units Hydralazine HCl (Apresoline) 50 mg PO BID [facility] Last Admin: 10/12/16 09:30 Dose: Not Given Lactulose (Enulose) 20 gm PO DAILY PRN PRN Reason: Constipation Pantoprazole Sodium (Protonix Ec Tab) 20 mg PO DAILY [facility] Last Admin: 10/12/16 09:24 Dose: 20 mg Pregabalin (Lyrica) 50 mg PO BID [facility] Last Admin: 10/12/16 09:24 Dose: 50 mg Risperidone (Risperdal Tab) 0.5 mg PO 1000,1600 [facility] Last Admin: 10/12/16 09:24 Dose: 0.5 mg Risperidone (Risperdal Tab) 0.5 mg PO HS [facility] Last Admin: 10/11/16 22:18 Dose: 0.5 mg Sevelamer HCl (Renagel) 2,400 mg PO ACTID [facility] Last Admin: 10/12/16 12:55 Dose: Not Given Valsartan (Diovan) 320 mg PO DAILY [facility] Last Admin: 10/12/16 09:30 Dose: Not Given Vitamin B Complex/Vit C/Folic Acid (Nephro-Yudi) 1 tab PO 0800 [place] Ziprasidone (Geodon Inj) 10 mg IM Q6H PRN PRN Reason: Agitation - Labs Labs: 10/12/16 08:10 10/12/16 08:10 PT 11.5 Seconds (9.9-11.8) 10/02/16 18:30 INR 1.06 (0.93-1.08) 10/02/16 18:30 APTT 33.8 Seconds (23.7-30.8) H 10/02/16 18:30
--- NOTE | 2016-10-12 15:48 | US ---
PROCEDURE: Lower extremity XENIA exam HISTORY: Peripheral vascular disease with pain and claudication. Diabetes. PHYSICIAN(S): Jed Griffith MD. FINDINGS: The resting XENIA's are normal: right, 0.94and left, 0.91. The left XENIA a may be inaccurate due to calcification. The high thigh PVR waveforms are normal and symmetric. Calf PVR waveforms are normal and augment normally. They are symmetric in appearance. The right ankle PVR waveform is relatively normal. Left ankle PVR waveform is severely blunted. 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 IMPRESSION: 1. Left tibial occlusive disease. 2. The resting ABIs are relatively normal. The left XENIA may be inaccurate due to calcification.
[2016-10-12 17:56] VITALS: BP 140/61; PULSE 73
--- NOTE | 2016-10-12 18:04 | CON ---
DATE: 10/12/2016 CHIEF COMPLAINT: Left lower extremity weakness. HISTORY OF PRESENT ILLNESS: This is a 75-year-old man with history of end-stage renal disease on hem odialysis, history of dementia with behavioral disturbance, history of frequent falls and generalized weakness, hypertension, dyslipidemia, COPD, pemphigoid, anemia, who came in for frequent falls and g eneralized weakness. Reports some back pain, muscle aches after experienced a fall. He uses a cane f or assistance. I was consulted for his left lower extremity weakness. He does have a left foot drop and atrophy of bilateral lower extremity muscles, more on the left lower extremity than the right. At this time, he will likely need an AFO to the left foot and some physical therapy at this time, and will see us as an outpatient for an EMG nerve conduction to assess the degree of axonal neuropathy. PAST MEDICAL HISTORY: End-stage renal disease on hemodialysis, anemia, hyperphosphatemia, secondary hyperparathyroidism, dementia, behavioral disturbance. REVIEW OF SYSTEMS: A 14-point review of systems negative except as in HPI. SOCIAL HISTORY: No illicit drug use, smoking, or ETOH abuse. ALLERGIES: No known drug allergies. MEDICATIONS: Reviewed via nursing reconciliation sheet. FAMILY HISTORY: Noncontributory. PHYSICAL EXAMINATION: VITAL SIGNS: Temperature 98, pulse rate 74, blood pressure 163/71, respiratory rate of 18, oxygen sa turation 100% via room air. GENERAL: The patient is sitting up in bed in no acute distress. HEENT: Atraumatic, normocephalic. PERRLA. Extraocular muscles intact. NECK: Supple, no JVD, no adenopathy noted. LUNGS: Clear to auscultation. No adventitious sounds. HEART: S1, S2, normal rate and rhythm. No murmurs, rubs, or gallops. ABDOMEN: Soft, nontender, nondistended. Bowel sounds are present. EXTREMITIES: No clubbing, no cyanosis. Peripheral pulses 2+ felt bilaterally. NEUROLOGIC: The patient is alert, oriented to person and place and year. Recall after 5 minutes is 0/3. Poor attention span, slow thought process, tangential and loose associations. Cranial nerves I I-XII are intact. MOTOR: Moves all extremities, but has a left foot drop. Has atrophy mostly in the bilateral lower ex tremity muscles, more on the left than the right. SENSORY: Otherwise, decreased sensation in terms of light touch and pinprick to the calves bilaterall y. Diffuse vibration of the toes and knees. DTRs are 2+ throughout and absent at the knees and ankle s. COORDINATION: [id number] is intact. Gait is deferred for now. LABORATORY DATA: Sodium is 135, potassium 4.6, chloride 104, carbon dioxide 19, BUN of 65, creatinin e 7, random glucose 153. IMPRESSION: His left lower extremity weakness is secondary to axonal neuropathy, given his history o f end-stage renal disease and he has a left foot drop, which is likely secondary to left peroneal ner ve injury. At this time, he has dementia with behavioral disturbance and is on Aricept 10 mg and Ris perdal for agitation. At this time, recommend: 1. Physical and occupational therapy. Will need subacute rehabilitation. Has a left foot drop, needs a left ankle foot orthosis to shunt in the left foot drop. 2. We will need EMG nerve conduction study as an outpatient to see the degree of axonal neuropathy. 3. Continue with Lyrica 50 mg p.o. b.i.d. for neuropathic pain relief. 4. Continue her current present medical management. No further neurological at this time. Most of the workup will be done as an outpatient. Oniel Almonte MD cc: [id number] TT: 10/12/2016 18:03:50 Confirmation # [id number] Dictation # [id number] ln
[2016-10-12 18:34] VITALS: RESP 19; TEMP 98.1
--- NOTE | 2016-10-12 21:28 | PN ---
DATE: 10/12/2016 ADDENDUM This is an addendum to the GI progress report dictated by Chanel Schulz. The patient appears more aler t. Comfortable, no complaints. No abdominal pain. PHYSICAL EXAMINATION: ABDOMEN: Soft. LABORATORY DATA: Reviewed. His platelet count is 96,000. 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 The patient was on Viread before not restarted because of the discontinuation of therapy o f the poor compliance and difficult to manage in this patient. The patient is awaiting for nursing h ome placement where it can be resumed. The patient does have a history of renal cell carcinoma before. Thank you very much for allowing me to participate in the care of the patient. Liss Huber MD cc: [id number] TT: 10/12/2016 21:28:20 Confirmation # [id number] Dictation # [id number] faheem
[2016-10-13] MEDS ORDERED: Multivitamin Vitamin B Complex (Nephro-Vite) Tab PO SCH (08:00)
--- NOTE | 2016-10-13 12:08 | DS ---
The patient is a 75-year-old male with multiple medical problems, renal failure on hemodialysis, hype rtension, hypercholesterolemia, seems general weakness. The patient also has chronic hep B. The pat apurva was admitted because of general weakness and continuation of his hemodialysis and alf elsy willard. We found accepting facility, [facility] He is hemodynamically stable. No new complaint. No agitation. He is comfortable on his curren t medications. PHYSICAL EXAMINATION: VITAL SIGNS: Temperature 98.1, heart rate , blood pressure 140/61, respirations 19, sats 100%. HEAD AND NECK: Normal. No JVD, no thyromegaly. CHEST: Clear. Good air entry. CARDIAC: First and second sounds are normal. ABDOMEN: Soft, nontender. EXTREMITIES: No edema. NEUROLOGIC: Normal. LABORATORY DATA: Shows white count 4.4, hemoglobin 10.9, hematocrit 33.1, platelets are 96. Manager Of Investigations ry: Sodium 135, potassium 4.6, chloride 104, bicarbonate 19, BUN 65, creatinine 7. The patient has p hosphorus 5.9, magnesium 2.8. Liver enzymes are normal. The patient is stable and will be discharged to rehab. DISCHARGE DIAGNOSES: 1. Chronic renal failure on hemodialysis. Continue that at [facility]. 2. The patient has generalized weakness, more in the lower extremities. Could be related to periphe ral neuropathy related to his chronic renal failure and has some small muscles in the legs. Will con tinue physical therapy. 3. Footdrop. Will need orthotics. Will continue that at [facility]. 4. Anemia, chronic hepatitis B. Continue followup as outpatient. No treatment for hep B at this [facility]. 5. Hypertension, hypercholesterolemia. Continue current therapy. 6. Behavioral disorders with dementia, with occasionally aggressive behavior. Seems stable on Rispe rdal. Controlled very well. Will continue Risperdal three times a day. PLAN: Discharge patient to [facility]. Follow up outside. Barber Aguirre MD cc: [phone] TT: 10/13/2016 12:07:11 rn
== END 2016-10-12 20:56 | DRG 884 ==
LOC: ED 16:35 → ERH 21:10 → 3RNO 22:51 → OBSVTOIN 10-04 10:42
PROVIDERS: ADMIT Internal Medicine; ATTEND Internal Medicine
PROC: 5A1D60Z (ICD-10-PCS; principal; 2016-10-03)
DX: F01.51 Vascular dementia, unspecified severity, with behavioral disturbance (principal); D61.818 Other pancytopenia; N18.6 End stage renal disease; E11.22 Type 2 diabetes mellitus with diabetic chronic kidney disease; N25.81 Secondary hyperparathyroidism of renal origin; I12.0 Hypertensive chronic kidney disease with stage 5 chronic kidney disease or end stage renal disease; K31.84 Gastroparesis; E11.42 Type 2 diabetes mellitus with diabetic polyneuropathy; B18.1 Chronic viral hepatitis B without delta-agent; S84.12XA Injury of peroneal nerve at lower leg level, left leg, initial encounter; R16.1 Splenomegaly, not elsewhere classified; B35.3 Tinea pedis; E11.43 Type 2 diabetes mellitus with diabetic autonomic (poly)neuropathy; R29.6 Repeated falls; Z99.2 Dependence on renal dialysis; M21.372 Foot drop, left foot; E55.9 Vitamin D deficiency, unspecified; M62.562 Muscle wasting and atrophy, not elsewhere classified, left lower leg; J44.9 Chronic obstructive pulmonary disease, unspecified; E78.5 Hyperlipidemia, unspecified; E83.39 Other disorders of phosphorus metabolism; I25.10 Atherosclerotic heart disease of native coronary artery without angina pectoris; R26.2 Difficulty in walking, not elsewhere classified; F32.9 Major depressive disorder, single episode, unspecified; K74.69 Other cirrhosis of liver; K59.09 Other constipation; E78.00 Pure hypercholesterolemia, unspecified; G89.29 Other chronic pain; Z87.891 Personal history of nicotine dependence; Z90.5 Acquired absence of kidney; Z85.528 Personal history of other malignant neoplasm of kidney; J31.0 Chronic rhinitis; Z91.19 Patient's noncompliance with other medical treatment and regimen; Z91.81 History of falling

== ENCOUNTER 2017-03-30 16:17 | Inpatient (IN) | payer MEDICARE, BC ==
[2017-03-30 16:29] VITALS: BMI 21.5
--- NOTE | 2017-03-30 17:50 | ED PDOC ---
Arrival/HPI - General Chief Complaint: Lower Extremity Problem/Injury Time Seen by Provider: 03/30/17 17:06 Historian: [facility] EM Caveat: Other (poor historian) - History of Present Illness Narrative History of Present Illness (Text): 03/30/17 17:45 pt, poor historian; pt presents to ED with concern for worsening left foot/ ankle pain, worsening wound; unknown timeframe however; i was not able to contact the care home but i was able to speak to Dr Aguirre who states pt's podiatrists who had evaluated patient today expressed concern regarding pt's left lower extremity wound/pain and possible wound care/debridement/?amputation maybe recommended; pt states he doesnt have any diffuse pain currently; pt denied sob, no other complaints pt is here for further eval. 03/30/17 22:00 Time/Duration: Other (unknown timeframe) Symptom Onset: Gradual Symptom Course: Other (constant) Severity Level: 1 Past Medical History - Provider Review Nursing Documentation Reviewed: Yes - Travel History Have you recently traveled outside [place] w/in the past 3 mons?: No - Past History Past History: No Previous - Infectious Disease Hx of Infectious Diseases: None - Tetanus Immunization Tetanus Immunization: Unknown - Cardiac Hx Hypertension: Yes - Pulmonary Hx Chronic Obstructive Pulmonary Disease (COPD): No - Neurological Hx Dementia: Yes - HEENT Hx HEENT Disorder: No (WEARS RX GLASSES) - Renal Hx Renal Failure: Yes (CKD, ESRD w/ HD) - Endocrine/Metabolic Hx Diabetes Mellitus Type 2: Yes Hx Hypothyroidism: No - Hematological/Oncological Hx Anemia: Yes - Integumentary Hx Dermatological Disorder: Yes (Bullous pemphigoid) - Musculoskeletal/Rheumatological Hx Arthritis: Yes - Gastrointestinal Hx Crohn's Disease: No Hx Diverticulitis: No Hx Gall Bladder Disease: No Hx Pancreatitis: No - Genitourinary/Gynecological Hx Sexually Transmitted Diseases: No - Psychiatric Hx Anxiety: No Hx Bipolar Disorder: No Hx Depression: No Hx Post Traumatic Stress Disorder: No Hx Schizophrenia: No Hx Substance Use: No - Surgical History Hx Appendectomy: No Hx Cholecystectomy: No Hx Coronary Stent: No - Anesthesia Hx Anesthesia: No Hx Anesthesia Reactions: No Hx Malignant Hyperthermia: No - Suicidal Assessment Feels Threatened In Home Enviroment: No Family/Social History Family/Social History: Unknown Family HX Narrative Family History (Free Text): 03/30/17 22:04 [facility] Smoking Status: Never Smoked Hx Alcohol Use: No Hx Substance Use: No Hx Substance Use Treatment: No Allergies/Home Meds Allergies/Adverse Reactions: Allergies No Known Allergies Allergy (Verified 03/30/17 16:29) Home Medications: Home Meds Medication Instructions Recorded Confirmed Acetaminophen [Tylenol 325mg tab] 325 mg PO PRN PRN 03/30/17 03/30/17 Acetaminophen [Tylenol 325mg tab] 650 mg PO Q4 PRN 03/30/17 03/30/17 Aspirin [Aspirin EC] 325 mg PO QWK 03/30/17 03/30/17 Donepezil HCl [Aricept ODT] 10 mg PO DAILY 03/30/17 03/30/17 Folic Acid/Vit B Complex and C 1 tab PO DAILY 03/30/17 03/30/17 [Nephro-Yudi Vitamin B and C Complex] Heparin 5,000 units SC Q12 03/30/17 03/30/17 Lactulose [Kristalose] 20 gm PO BID 03/30/17 03/30/17 Pregabalin [Lyrica] 50 mg PO TID 03/30/17 03/30/17 Risperidone [Risperdal] 1 mg PO QWK 03/30/17 03/30/17 Silver Sulfadiazine 1% [Silver 1 appl TP DAILY 03/30/17 03/30/17 Sulfadiazine] Valsartan 320 mg PO DAILY 03/30/17 03/30/17 cloNIDine [clonidine HCl] 0.1 mg PO Q8 PRN 03/30/17 03/30/17 Review of Systems - Review of Systems Constitutional: Normal Eyes: Normal Respiratory: Normal Cardiovascular: Normal Gastrointestinal: Normal Musculoskeletal: Other (left leg pain) Skin: Normal Physical Exam Vital Signs Reviewed: Yes (WNL) Vital Signs Temp Pulse Resp BP Pulse Ox 03/30/17 18:55 18 99 03/30/17 17:34 64 18 132/55 L 100 03/30/17 17:00 97.8 F 66 20 137/61 96 03/30/17 16:31 98.6 F 67 18 136/59 L 100 03/30/17 16:30 98.6 F 66 17 136/59 L 100 03/30/17 16:20 97.8 F 20 Temperature: Afebrile Blood Pressure: Normal Pulse: Regular Respiratory Rate: Normal Appearance: Positive for: Other (alert/awake, oriented x 1 (not to date/time/ place); mildly uncomfortable, NAD, cooperative, resting in bed) Pain Distress: None Mental Status: Positive for: other (fatigued but responsive; easily arousable) - Systems Exam Head: Present: Atraumatic, Normocephalic, Other (bi-temporal wasting) Pupils: Present: PERRL Extroacular Muscles: Present: EOMI Conjunctiva: Present: Normal Mouth: Present: Other (poor dentitions, no drooling/stridor, mild dry oral mucosa) Neck: Present: Normal Range of Motion Respiratory/Chest: Present: Clear to Auscultation Cardiovascular: Present: Regular Rate and Rhythm, Normal S1, S2 Abdomen: Present: Normal Bowel Sounds, Other (well nourished patient, no focal tenderness, no pulsatile masses noted, no masses/rebound/guarding/rigidity) Upper Extremity: Present: Normal Inspection, Normal ROM, Capillary Refill < 2s Lower Extremity: Present: Swelling (decr ROM to b/l lower ext, strength 4+/5, + left lower ext/ankle/plantar wound, no discharge expressible, no skin erythema noted, mild swelling, no pitting edema) Neurological: Present: CN II-XII Intact Skin: Present: Warm, Other (no pallor, no mottled skin, no focal discoloration, no lacerations noted) Psychiatric: Present: Alert Medical Decision Making ED Course and Treatment: 03/30/17 17:46 pt with left leg pain, left foot wound, concern for worsening symptoms A/P: left leg pain/foot pain - xray - labs - iv - supportive care - observe I spoke to Dr Aguirre, who is aware of pt's arrival to the ED, will admit patient , would like vascular/podiatry consult pt will be admitted for further left leg wound care 03/30/17 21:42 i spoke with Podiatry resident real estate utilization officer, made aware, agrees with ED mgt/txt, and will see patient in the morning I spoke to Dr Griffith ([facility] real estate utilization officer), made aware, agrees with ED mgt/txt, would like morning XENIA/PVR vascular study and will see patient in the morning for possible angiogram to coincide with pt's dialysis pt had went to his admitted bed prior to my discussion with Dr Griffith, unable to place abx/vascular study, will let the admitting team know Re-evaluation Time: 18:30 Reassessment Condition: Unchanged - Lab Interpretations I have reviewed the lab results: Yes Interpretation: Abnormal lab values (chronic renal failure, mild anemia) - RAD Interpretation Narrative RAD Interpretations (Text): 03/30/17 21:46 CXR - rotated, mild cardiomeagly, as read by me 03/30/17 21:50 Left foot: mild sts, no acute fx, no dislocation noted, no obvious bony erosions to suggest osteomyelitis as read by me left TIB/FIB: DJD, osteopenia; no acute fx/dislocation noted, no obvious bony erosions to suggests osteomyelitis as read by me Left ankle: DJD, osteopenia; no acute fx/dislocation noted, no obvious bony erosions to suggests osteomyelitis as read by me Radiology Orders: 03/30/17 17:21 CHEST ONE VIEW [RAD] Stat ANKLE LEFT 3 VIEWS ROUTINE [RAD] Stat FOOT LEFT 3 VIEWS ROUTINE [RAD] Stat TIBIA FIBULA LEFT [RAD] Stat Commercial Crabber: ED Physician - EKG Interpretation EKG Interpretation (Text): 03/30/17 21:55 Sinus rhythm at 60 bpm with 1st degree av block, normal axis, no ectopy, qs in leads III, V1, no st changes, ABNL EKG; no gross changes compare with old ekg 2016 Interpreted by ED Physician: Yes Type: 12 lead EKG Comparison: Similar to previous EKG - Medication Orders Current Medication Orders: Acetaminophen (Tylenol 325mg Tab) 325 mg PO Q4H PRN PRN Reason: Fever >100.4 F Cinacalcet (Sensipar) 30 mg PO Q48H [facility] Clonidine HCl (Catapres) 0.1 mg PO Q8 PRN PRN Reason: Other Donepezil HCl (Aricept) 10 mg PO HS [facility] Hydralazine HCl (Apresoline) 100 mg PO Q8 [facility] Piperacillin Sod/Tazobactam Sod (Zosyn 2.25 Gm In 0.9% 100 Ml) 2.25 gm in 100 mls @ 100 mls/hr IVPB Q6 [facility] PRN Reason: Protocol Stop: 04/07/17 00:01 Linezolid (Zyvox 600mg/300ml D5w) 600 mg in 300 mls @ 200 mls/hr IVPB Q12 [facility] PRN Reason: Protocol Stop: 04/06/17 22:01 Lactulose (Enulose) 20 gm PO BID [facility] Pantoprazole Sodium (Protonix Ec Tab) 20 mg PO DAILY [facility] Pregabalin (Lyrica) 50 mg PO TID [facility] Risperidone (Risperdal Tab) 1 mg PO QWK [facility] PRN Reason: Protocol Sevelamer HCl (Renagel) 800 mg PO TID [facility] Silver Sulfadiazine (Silvadene 1% 25 Gm) 25 gm TP DAILY [facility] Valsartan (Diovan) 320 mg PO DAILY [facility] Vitamin B Complex/Vit C/Folic Acid (Nephro-Yudi) 1 tab PO DAILY [facility] Disposition/Present on Arrival - Present on Arrival Any Indicators Present on Arrival: Yes History of DVT/PE: No History of Uncontrolled Diabetes: Yes Urinary Catheter: No History of Decub. Ulcer: No History Surgical Site Infection Following: None - Disposition Have Diagnosis and Disposition been Completed?: Yes Diagnosis: Leg pain, left Disposition: HOSPITALIZED Disposition Time: 17:20 Patient Plan: Admission Condition: STABLE
[2017-03-30 18:05] LABS: BASO # 0.02 K/mm3 (0.0-2.0); BASO % 0.2 % (0.0-3.0); EOS # 0.2 (0.0-0.7); EOS % 1.8 % (1.5-5.0); GRAN # 7.08 (1.4-6.5); GRAN % 77.9 % (50.0-68.0); HEMATOCRIT 28.6 % (42.0-52.0); LYMPH # 1.2 (1.2-3.4); LYMPH % 13.5 % (22.0-35.0); MEAN CELL VOLUME 86.7 fl (80.0-105.0); MEAN CORPUSCULAR HEMOGLOBIN 27.6 pg (25.0-35.0); MEAN CORPUSCULAR HGB CONC 31.8 g/dl (31.0-37.0); MEAN PLATELET VOLUME 9.9 fl (7.0-11.0); MONO # 0.6 (0.1-0.6); MONO % 6.6 % (1.0-6.0); RED CELL DISTRIBUTION WIDTH 16.9 % (11.5-14.5); WHITE BLOOD COUNT 9.1 10^3/ul (4.5-11.0)
[2017-03-30 18:13] LABS: ALB/GLOB RATIO 0.7 (1.1-1.8); BILIRUBIN,TOTAL 0.5 mg/dL (0.2-1.3); CALCIUM 10.4 mg/dL (8.4-10.5); POTASSIUM 4.4 mmol/L (3.6-5.0); TOTAL PROTEIN 7.5 g/dL (5.8-8.3)
[2017-03-30 18:24] LABS: TROPONIN I 0.02 ng/mL
[2017-03-30] MEDS ORDERED: Non Formulary Medication (Sevelamer Carbonate [Renvela] 800 MG) PO SCH (19:00)
[2017-03-30] MEDS: Linezolid 600 mg in D5W 300 ml 600 MG/300 ML BAG IVPB SCH (23:38)
--- NOTE | 2017-03-31 08:28 | RAD ---
PROCEDURE: Radiographs of the left tibia and fibula. HISTORY: infection, persistent pain COMPARISON: None available. TECHNIQUE: Frontal and lateral views obtained. FINDINGS: BONES: Periosteal reaction versus callus formation noted proximally, likely arising from the fibula however not well delineated on the submitted views. No acute displaced fracture. JOINT SPACES: No dislocation. OTHER FINDINGS: Dense vascular calcifications. Soft tissues appear unremarkable. No evidence of radiopaque foreign body. IMPRESSION: Periosteal reaction versus callus formation noted proximally, likely arising from the fibula however not well delineated on the submitted views. No acute displaced fracture.
--- NOTE | 2017-03-31 08:30 | RAD ---
PROCEDURE: Left Ankle Radiographs. HISTORY: persistent pain, r/o osteo COMPARISON: None available FINDINGS: BONES: Osseous demineralization. No acute displaced fracture. JOINTS: No dislocation. Severe degenerative changes with joint space narrowing at the level of the ankle. SOFT TISSUES: Dense vascular calcifications. No evidence of radiopaque foreign body. OTHER FINDINGS: None. IMPRESSION: No acute findings identified. Please note MRI without and with IV contrast is most sensitive in detection of acute osteomyelitis.
--- NOTE | 2017-03-31 08:31 | RAD ---
PROCEDURE: Left Foot Radiographs. HISTORY: persistent pain, r/o osteo COMPARISON: None available. FINDINGS: BONES: Osseous demineralization. Degenerative changes. No acute displaced fracture. JOINTS: No dislocation. Severe joint space narrowing at the level of the ankle. SOFT TISSUES: Dense vascular calcifications. No evidence of radiopaque foreign body. OTHER FINDINGS: Bandage noted at the level of the the calcaneus/heel. IMPRESSION: No acute findings identified. See above. Please note that MRI without and with IV contrast is most sensitive in detection of acute osteomyelitis.
--- NOTE | 2017-03-31 08:34 | RAD ---
HISTORY: weakness COMPARISON: Chest x-ray performed 10/02/16 TECHNIQUE: Chest, one view. FINDINGS: LUNGS: No focal consolidation. Numerous scattered calcified granulomas. Please note that chest x-ray has limited sensitivity for the detection of pulmonary masses. PLEURA: No significant pleural effusion identified. No definite pneumothorax . CARDIOVASCULAR: Heart size appears top normal. Dense atherosclerotic calcifications of the aorta. OSSEOUS STRUCTURES: Degenerative changes of the spine and shoulders. Acromioclavicular arthropathy. VISUALIZED UPPER ABDOMEN: Unremarkable. OTHER FINDINGS: None. IMPRESSION: Evidence of prior granulomatous infection.
[2017-03-31] MEDS: Multivitamin Vitamin B Complex (Nephro-Vite) Tab PO SCH (09:00)
[2017-03-31] MEDS: Pantoprazole 20 mg EC Tab PO SCH (09:00)
[2017-03-31] MEDS: Linezolid 600 mg in D5W 300 ml 600 MG/300 ML BAG IVPB SCH ×2 (09:00→23:40)
[2017-03-31] MEDS: Silver Sulfadiazine 1% Cream (25 gm) TP SCH (09:01)
[2017-03-31] MEDS ORDERED: Non Formulary Medication (Donepezil Hcl [Aricept Odt] 10 MG) PO SCH (10:00)
[2017-03-31] MEDS ORDERED: LACTULOSE 20 GM PO SCH (10:00)
[2017-03-31] MEDS ORDERED: FOLIC ACID PO SCH (10:00)
[2017-03-31] MEDS ORDERED: APPL TP SCH (10:00)
[2017-03-31] MEDS ORDERED: SILVER SULFADIAZINE 1% TP SCH (10:00)
[2017-03-31] MEDS ORDERED: VIT B COMPLEX AND C PO SCH (10:00)
--- NOTE | 2017-03-31 11:09 | CON ---
DATE: HISTORY OF PRESENT ILLNESS: This 76-year-old man seen at bedside for consultation, evaluation and management of bilateral gangrenous ulcerations on his heels, left being worse than right. The patient has been seen by myself at [facility] for the past several weeks and over the course of the last week his wounds have worsened in severity. The patient was seen yesterday and it was noted to be extreme malodor emanating from the left heel, so I recommended admission for vascular workup and possible excisional debridement if feasible. It is feasible given his vascular results. PAST MEDICAL HISTORY: The patient's medical history is significant for type 2 diabetes with peripheral neuropathy, end-stage renal disease on hemodialysis, hepatitis B, hemochromatosis, CVA, seizure disorder, generalized muscle weakness, and dementia. PAST SURGICAL HISTORY: Unobtainable. SOCIAL HISTORY: The patient never smoked. No history of alcohol or drug abuse. ALLERGIES: HE HAS NO KNOWN DRUG ALLERGIES. HOME MEDICATIONS: Noted in the MAR. RADIOLOGIC DATA: His foot and tibiofibular x-rays revealed no radiographic evidence of osteomyelitis at this time. However, there are noted to be severe Monckeberg calcifications throughout. LABORATORY DATA: Laboratory findings reveal a white count of 9.1, hemoglobin of 9.1, hematocrit of 28.6, and platelet count of 98. His ESR is elevated at 126. There is no microbiology report noted. PHYSICAL EXAMINATION/OBJECTIVE: VITAL SIGNS: The patient's vital signs revealed temperature of 97.8, pulse rate of 66, blood pressure of 137/61, and respiratory rate of 20. EXTREMITIES: Nonpalpable pedal pulses noted bilaterally and +1 nonpitting lower extremity edema noted bilaterally. Capillary filling time is delayed x10. The patient is unable to detect 5.07 gram monofilament wire testing bilaterally. Lower extremity skin presents thin, shining discolored toenail, plantar noted to be elongated, dystrophic, discolored with severe subungual fungal debris. There is noted to be a full-thickness ulceration on the left heel encompass the entire heel. Base of the wound is primarily gangrenous and malodor. There is no purulence emanating from the wound. There is no serous drainage. There is no signs of underlying abscess formation. The wound does not probe to tendon or bone. There is no signs of localized cellulitis or ascending cellulitis. The is a more superficial ulceration located on the right heel encompass the entire heel, base of that ulceration shows early ischemic changes consistent with gangrenous ulceration. There is no purulence emanating from the wound and no signs of abscess formation or ascending cellulitis. ASSESSMENT: Gangrenous diabetic heel ulcerations, left greater than right. PLAN: The patient's wound were examined, culture was taken and submitted for sensitivities. Recommend immediate infectious disease consult to evaluate culture and sensitivity results and prescribe accordingly. Dr. Griffith was notified of the patient's admission and the plan is to perform an arteriogram in a Sunday or Sunday on his dialysis day to ascertain lower extremity perfusion. Pending vascular and the arteriogram results and Dr. Griffith recommendation. We will plan for excisional debridement of the left heel if feasible. In the meantime, we will cleanse the wounds with normal sterile saline, apply Betadine solution and a dry sterile dressing to both heels. It is imperative that we continue to offload both heels at all times using the foam multi Podus boots that are present at bedside. Phu Carlson DPM [facility]
[2017-03-31] MEDS: Piperacillin/Tazobact 2.25gm 2.25 GM/100 ML BAG IVPB SCH ×3 (12:32→18:43)
[2017-03-31 15:44] LABS: MEAN CELL VOLUME 84.8 fl (80.0-105.0); MEAN CORPUSCULAR HEMOGLOBIN 27.3 pg (25.0-35.0); MEAN CORPUSCULAR HGB CONC 32.2 g/dl (31.0-37.0); MEAN PLATELET VOLUME 9.7 fl (7.0-11.0); RED CELL DISTRIBUTION WIDTH 16.7 % (11.5-14.5); WHITE BLOOD COUNT 6.5 10^3/ul (4.5-11.0)
[2017-03-31 15:48] LABS: HEMATOCRIT 23.9 % (42.0-52.0)
[2017-03-31] MEDS ORDERED: Iron Sucrose 100 mg/5 ml Inj IVP ONE ×2 (16:03→16:15)
[2017-03-31 16:38] LABS: BILIRUBIN,TOTAL 0.4 mg/dL (0.2-1.3); CALCIUM 8.6 mg/dL (8.4-10.5); TOTAL PROTEIN 6.7 g/dL (5.8-8.3)
[2017-03-31 16:40] LABS: ALB/GLOB RATIO 0.7 (1.1-1.8); POTASSIUM 3.4 mmol/L (3.6-5.0)
--- NOTE | 2017-03-31 18:13 | CON ---
NEPHROLOGY CONSULTATION LOCATION: [facility]. HISTORY OF PRESENT ILLNESS: A 76-year-old male with past medical history of hypertension, diabetes, hepatitis B (untreated), dementia, recent admission for herpes zoster lesion on left thigh as well as altered mental status and left heel ulceration, and ESRD on hemodialysis (TTS at [facility] under [facility]), [facility] yesterday for admission on recommendation by weather teacher after noting gangrenous heel ulcer. Nephrology being consulted for ESRD care. Per podiatry notes, the patient had been evaluated for bilateral gangrenous heel ulcerations with left being worse than right; wounds apparently worsened in severity over past several weeks and with extreme malodor emanating from left heel; therefore, the patient was sent for vascular workup and possible excisional debridement. The patient otherwise has baseline dementia and furthermore has had several admissions for altered mental status. The last one being about 2 weeks ago (records unavailable). The patient was seen by me at the beginning of last month while he was admitted at [facility] for altered mental status as well as active herpes zoster lesion involving left thigh. The patient otherwise denies any complaints, does not know why he was sent to the hospital. Denies being in any pain, although on exam he does grimace in pain when left heel being examined. The patient denies any difficulty breathing and says he is eating well. Functional status is that he is bed bound since past several months. PAST MEDICAL HISTORY: As above. The patient have hepatitis B, that is untreated, also with bilateral renal masses with no plan for aggressive treatment due to the patient's advanced dementia. The patient also with worsening dementia as well as altered mental status admissions in the setting of herpes zoster lesion of left thigh. FAMILY HISTORY: Unable to be obtained. SOCIAL HISTORY: Unable to be obtained. REVIEW OF SYSTEMS (limited due to patient dementia): GENERAL: The patient reports eating well. HEENT: Denies any sore throat. RESPIRATORY: Reports some cough. CARDIOVASCULAR: Denies chest pain or palpitations. GI: Denies any vomiting or diarrhea. : Says he still makes some urine, unclear how much. SKIN: Denies any pruritus, although the patient is noted to be itching his left arm underside of the AV fistula during hemodialysis. PHYSICAL EXAMINATION: VITAL SIGNS: This morning blood pressure 158/69, heart rate 64, respirations 20, temperature 97.5, O2 sat 100% on room air. GENERAL: No distress. Able to answer questions coherently. HEENT: Moist mucous membranes. Nonicteric. No cervical lymphadenopathy. RESPIRATORY: Lungs with mild rales on left. No respiratory distress. CARDIOVASCULAR: Heart sounds S1 and S2 normal. No murmurs, no gallops, no rubs. GI: Abdomen soft, nondistended, mildly tender. : No overt bladder distention. SKIN: Warm. No cyanosis. Left heel with healed ulcer but with oozing of purulent bloody fluid from edges and malodorous on the left. Right heel does not appear to be oozing. PSYCHIATRIC: Normal mood. NEURO: 4+/5 motor in bilateral upper extremities. LABORATORY DATA: From yesterday, CBC; WBC 9.1, hemoglobin 9.1, hematocrit 28.6, platelets 98. Chemistry panel; sodium 141, potassium 4.4, chloride 100, bicarb 34, BUN 40, creatinine 5.3, glucose 122, calcium 10.4, albumin 3.2. ASSESSMENT AND PLAN: 1. End-stage renal disease, on hemodialysis. The patient with relatively stable volume and electrolyte status, last dialysis occurring 2 days ago, dialyzing again today per routine with UF goal of 2L. 2. Hypertensive end-stage renal disease. Blood pressure has been difficult to control at times. The patient currently getting amlodipine 10 mg daily, hydralazine 100 mg q.8 hours and valsartan 320 mg daily, continue the same. We would recommend to avoid clonidine unless BP severely uncontrolled as he has a recent history of blood pressure dropping precipitously due to it. We would set parameters for p.r.n. clonidine for blood pressure greater than 180 systolic and not to be given on day of dialysis. 3. Chronic kidney disease-mineral bone disorder. The patient with secondary hyperparathyroidism of renal origin, also with hypercalcemia lately likely due in part to immobility. Sensipar dose recently increased to 30 mg daily (from every other day); will continue the same. Continue sevelamer one tablet t.i.d. with meals. Checking vitamin D 25 hydroxy level (due to granulomatous changes on CXR). 4. Anemia of end-stage renal disease. Hemoglobin below goal of 10-11 for end-stage renal disease; however, relatively stable, getting long-acting high dose EPO formulation with Mircera 200 mcg every 2 weeks at outpatient [facility]. We will not dose EPO for now overr here, giving IV iron on HD; 5. Heel ulcerations. Concern for gangrene and impending sepsis. The patient started on linezolid as well as Zosyn 2.25 g q.6 hours, correctly dosed for end-stage renal disease. No dose reduction needed for linezolid. 6. Dementia. Overall mental status has been declining, but since recent admission for further mental status in the setting of herpes zoster active lesion, mental status is much improved. We will avoid giving meds that may cause sedation. We will avoid giving clonidine also for this reason. 7. Hepatitis B. The patient with known hepatitis B surface antigen positive in the setting of having bleeding ulceration, need to take special precautions to prevent spread of infection, recommend the patient to be in isolation with contact precautions. Thank you for this consult. We will be following closely. Vincent Garcia MD [facility]
--- NOTE | 2017-03-31 22:04 | CARD ---
APPROVED REPORT EKG Measurement Heart [id number] MD [id number] <Conclusion> Sinus rhythm with 1st degree AV block Otherwise normal ECG
[2017-03-31] MEDS: Insulin Reg-MEDIUM-Coverage SC SCH (22:21)
--- NOTE | 2017-03-31 23:40 | CP.PCM.PN ---
Subjective - Date & Time of Evaluation Date of Evaluation: 03/31/17 Time of Evaluation: 23:37 - Subjective Subjective: S:It was requested to get consent for blood transfusion. Patient has no complaints. Pertinent medical record was reviewed. O: Last Vital Signs 3 Temp 98.3 F 03/31/17 22:03 Pulse 60 03/31/17 22:03 Resp 18 03/31/17 22:03 BP 98/46 L 03/31/17 22:03 Pulse Ox 100 03/31/17 08:41 Awake, alert, not in distress. LUNGS:Normal breathing pattern. A:Informed consent. Low BP reading. P:Patient signed consent in presence of primary nurse. Recheck blood pressure. Objective - Vital Signs/Intake and Output Vital Signs (last 24 hours): Temp Pulse Resp BP Pulse Ox 98.3 F 60 18 98/46 L 100 03/31/17 22:03 03/31/17 22:03 03/31/17 22:03 03/31/17 22:03 03/31/17 08:41 Intake and Output: 03/31/17 04/01/17 18:59 06:59 Intake Total 600 0 Balance 600 0 - Medications Medications: Current Medications Acetaminophen (Tylenol 325mg Tab) 325 mg PO Q4H PRN PRN Reason: Fever >100.4 F Amlodipine Besylate (Norvasc) 10 mg PO DAILY [facility] Last Admin: 03/31/17 10:46 Dose: 10 mg Cinacalcet (Sensipar) 30 mg PO DAILY [facility] Clonidine HCl (Catapres) 0.1 mg PO Q8 PRN PRN Reason: SBP 170 OR MORE Donepezil HCl (Aricept) 10 mg PO HS [facility] Last Admin: 03/31/17 21:23 Dose: 10 mg Hydralazine HCl (Apresoline) 100 mg PO Q8 [facility] Last Admin: 03/31/17 21:23 Dose: Not Given Piperacillin Sod/Tazobactam Sod (Zosyn 2.25 Gm In 0.9% 100 Ml) 2.25 gm in 100 mls @ 100 mls/hr IVPB Q6 [facility] PRN Reason: Protocol Stop: 04/07/17 00:01 Last Admin: 03/31/17 18:43 Dose: 100 mls/hr Linezolid (Zyvox 600mg/300ml D5w) 600 mg in 300 mls @ 200 mls/hr IVPB Q12 [facility] PRN Reason: Protocol Stop: 04/06/17 22:01 Last Admin: 03/31/17 09:00 Dose: 200 mls/hr Insulin Human Regular (Humulin R Med) 0 units SC ACHS [facility] PRN Reason: Protocol Last Admin: 03/31/17 22:21 Dose: Not Given Lactulose (Enulose) 20 gm PO BID [facility] Last Admin: 03/31/17 18:43 Dose: 20 gm Pantoprazole Sodium (Protonix Ec Tab) 20 mg PO DAILY [facility] Last Admin: 03/31/17 09:00 Dose: 20 mg Pregabalin (Lyrica) 50 mg PO TID [facility] Last Admin: 03/31/17 18:44 Dose: 50 mg Risperidone (Risperdal Tab) 1 mg PO HS [facility] PRN Reason: Protocol Sevelamer HCl (Renagel) 800 mg PO TID [facility] Last Admin: 03/31/17 18:44 Dose: 800 mg Silver Sulfadiazine (Silvadene 1% 25 Gm) 25 gm TP DAILY [facility] Last Admin: 03/31/17 09:01 Dose: 25 gm Valsartan (Diovan) 320 mg PO DAILY [facility] Last Admin: 03/31/17 09:00 Dose: 320 mg Vitamin B Complex/Vit C/Folic Acid (Nephro-Yudi) 1 tab PO DAILY [facility] Last Admin: 03/31/17 09:00 Dose: 1 tab - Labs Labs: 03/31/17 15:15 03/31/17 15:15 APTT 31.9 Seconds (25.1-36.5) 03/30/17 17:51
--- NOTE | 2017-03-31 23:47 | PN ---
DATE: SUBJECTIVE: The patient seems comfortable, no distress. No new complaints. Dr. Kaur on the bedside, Nephrology and it seems the patient seems otherwise comfortable. PHYSICAL EXAMINATION: VITAL SIGNS: Temperature is 97.5, heart rate 64, blood pressure 158/69, respirations 20, and saturating 100% on room air. HEAD AND NECK: Normal. No JVD. No thyromegaly. CHEST: Clear with good air entry. CARDIAC: First sound and second sound normal. ABDOMEN: Soft and nontender. EXTREMITIES: Muscle wasting and he has left heel gangrenous and right foot looks okay. Both feet on heel cushions. LABORATORY STUDIES: Sodium 139, potassium 3.4, chloride 100, bicarb 32, BUN 29, and creatinine is 3.6. His hematology shows white count 6.5, hemoglobin 7.7, hematocrit 23.9, and platelets 77. Sed rate also 126. IMPRESSION: 1. A gangrene left foot. We will get Podiatry consult, Dr. Carlson for possible surgical evaluation, debridement versus amputations, Vascular consult, Dr. Jed Griffith and ID consultation Dr. Lara. The patient has already stared on IV antibiotics. He is getting Zyvox 600 mg IV q. 12 h. and Zosyn IV 2.25 g IV q. 6 h. Continue current treatment. Continue follow up with the Podiatry consult. 2. Chronic renal failure. The patient post hemodialysis, his hemoglobin 7.7. After dialysis, we will transfuse one unit. He got IV iron by Nephrology. We will repeat CBC in the morning and we will follow up clinically. 3. Diabetes, dementia, hypertension, hypercholesterolemia. We will continue Risperdal for behavioral disturbance and agitation, seems doing well with that. Continue Renagel, Protonix, Norvasc, vitamins, Lyrica, insulin coverage, lactulose, Diovan, Catapres, Aricept, and hydralazine. Continue current therapy. Follow up clinically and we will also get a Hematology consult for evaluation of anemia. Repeat lab in the morning. Barber Aguirre MD
[2017-04-01] MEDS: Piperacillin/Tazobact 2.25gm 2.25 GM/100 ML BAG IVPB SCH ×4 (01:25→18:57)
--- NOTE | 2017-04-01 01:38 | CON ---
DATE: 03/31/2017 SUBJECTIVE: The patient is seen in earlier this morning in room 363, bed 2. CHIEF COMPLAINT: Bilateral heel infection times several days. HISTORY OF PRESENT ILLNESS: This is a 76-year-old male skilled nursing patient with diabetes, hypertension, hemochromatosis, seizures, dementia, chronic renal failure on hemodialysis, coronary artery disease, hepatitis B, hepatitis C, history of bullous pemphigoid, history of renal cancer, who was admitted through the Emergency Room with infection of bilateral heel. Infectious disease consultation was requested. REVIEW OF SYSTEMS: Reveals the patient has no fevers, no chills reported. No chest pain and has mild shortness of breath reported. No abdominal pain, diarrhea or constipation. No bright blood per rectum. No melena. PAST MEDICAL HISTORY: Significant for diabetes, hypertension, coronary artery disease, chronic renal failure on hemodialysis, hepatitis B and hepatitis C, bullous pemphigoid, renal cancer, hemochromatosis, seizures, and dementia. PAST SURGICAL HISTORY: Significant for dialysis catheter and partial nephrectomy. ALLERGIES: THE PATIENT HAS NO KNOWN ALLERGIES. MEDICATIONS: From skilled nursing are reviewed. PHYSICAL EXAMINATION: GENERAL: The patient is in bed. VITAL SIGNS: Temperature of 97, blood pressure of 150/60, respiratory rate of 20, heart rate of 64. HEENT: Unremarkable. NECK: Supple. LUNGS: Decreased breath sounds. HEART: Normal S1 and S2. ABDOMEN: Soft and nontender. LABORATORY EXAMINATION: Reveals the patient's white count is 6.5, and chemistries revealed a BUN of 29, creatinine of 3.6. C-reactive protein is 15 and sed rate is 126, and microbiology is pending. ASSESSMENT AND PLAN: This is a 76-year-old male skilled nursing patient with diabetes and hypertension, chronically ill and debilitated with coronary artery disease, chronic renal failure, hepatitis B and hepatitis C, bullous pemphigoid, renal cancer with bilateral healed eschar, currently on Zosyn and Zyvox pending podiatric involvement and cultures, rule out underlying osteomyelitis, rule out peripheral vascular disease and peripheral artery disease. We will follow closely with you. Ibrahima Lara MD
--- NOTE | 2017-04-01 04:56 | HP ---
DATE OF SERVICE: 03/30/2017 MAIN REASON FOR ADMISSION: Left foot gangrene, possible debridement or amputation. HISTORY OF PRESENT ILLNESS: A 76-year-old male with history of chronic renal failure, on hemodialysis, chronic hepatitis B, history of nephrectomy, currently on hemodialysis. He also has a history of dementia and came in by Dr. Carlson. The Podiatry recommended to be admitted for evaluation for debridement or partial, maybe below-knee amputation if needed. Patient clinically denied any complaints. He has no chest pain, no shortness of breath. He is a [facility] resident, getting dialysis over there, and denied any chills, any fever, any nausea, any vomiting, or any other complaints. PAST MEDICAL HISTORY: As follows; chronic renal failure, dementia, chronic hepatitis B, nephrectomy, also the single kidney, he has, has possible mass. Patient refused any surgery. Patient currently is bedridden most of the time, but he sat on a chair most the time. He also has possible anemia, end-stage renal disease, and possible CVA in the past. Chronic dementia with behavioral disorders, generalized weakness, and hypertension. Also, patient had diabetes mellitus, on insulin and insulin coverage. MEDICATIONS: He takes hydralazine 100 mg q.8, Aricept 10 mg p.o. at bedtime, Catapres 0.1 every 8 hours p.r.n., Diovan 320 p.o. daily, lactulose b.i.d. p.r.n., Lyrica 50 t.i.d., vitamin D complex, Norvasc 10 mg p.o. daily, Protonix 20 p.o. daily, Renagel 800 mg t.i.d., Risperdal 1 mg p.o. at bedtime, and Sensipar 30 mg p.o. daily, Silvadene 1% locally topically, Tylenol p.r.n., and folic acid with vitamin B also. Patient is also getting heparin subcu over there. He is getting Aricept 10 mg p.o. daily. He was getting aspirin 325 mg every week. ALLERGIES: NO KNOWN ALLERGIES. REVIEW OF SYSTEMS: As in the present illness. PHYSICAL EXAMINATION: GENERAL: Patient is comfortable. No distress. VITAL SIGNS: On 03/30, temperature 98.6, heart rate 67, blood pressure 136/59, respirations 18, saturation 100% on 2 L. HEAD AND NECK: Normal. No JVD. No thyromegaly. CHEST: Clear, good air entry. CARDIAC: First and second sounds are normal. ABDOMEN: Soft, nontender. EXTREMITIES: There is no edema. He has poor muscle bulk, and also his left heel looks dark, gangrenous area. Also, both feet has heel cushions. NEUROLOGIC: Generalized weakness. LABORATORY DATA: Shows white count 9.1, hemoglobin 9.1, hematocrit 28.6, platelets are 98. Chemistry: Sodium 141, potassium 4.4, chloride 100, bicarb 34, BUN 40, creatinine 5.3, blood sugar 122. Liver enzyme is normal; AST, ALT, and alk phos. Troponin is 0.02. Albumin and globulin are normal. IMPRESSION: 1. This is a 76-year-old male came with left heel gangrenous. He is a diabetic. Hypertension, end-stage renal disease. We will evaluate his vascular system, and we will admit him for possible surgery for gangrene left foot. We will give him IV antibiotic and Infectious Disease consult, Dr. Lara. 2. Chronic renal failure, diabetes, hypertension, chronic hepatitis B, dementia. We will resume all his medications. Insulin coverage. Follow up clinically. We will get a podiatry consult, Dr. Quiñones and Dr. Carlson. Barber Aguirre MD
[2017-04-01 06:49] LABS: ALB/GLOB RATIO 0.7 (1.1-1.8); BILIRUBIN,TOTAL 0.4 mg/dL (0.2-1.3); CALCIUM 9.3 mg/dL (8.4-10.5); POTASSIUM 3.5 mmol/L (3.6-5.0); TOTAL PROTEIN 6.6 g/dL (5.8-8.3)
[2017-04-01 07:06] LABS: BASO # 0.01 K/mm3 (0.0-2.0); BASO % 0.2 % (0.0-3.0); EOS # 0.3 (0.0-0.7); EOS % 4.4 % (1.5-5.0); GRAN # 4.44 (1.4-6.5); GRAN % 71.5 % (50.0-68.0); HEMATOCRIT 28.4 % (42.0-52.0); LYMPH # 0.7 (1.2-3.4); LYMPH % 11.6 % (22.0-35.0); MEAN CELL VOLUME 86.1 fl (80.0-105.0); MEAN CORPUSCULAR HEMOGLOBIN 27.3 pg (25.0-35.0); MEAN CORPUSCULAR HGB CONC 31.7 g/dl (31.0-37.0); MEAN PLATELET VOLUME 10.9 fl (7.0-11.0); MONO # 0.8 (0.1-0.6); MONO % 12.3 % (1.0-6.0); RED CELL DISTRIBUTION WIDTH 16.3 % (11.5-14.5); WHITE BLOOD COUNT 6.2 10^3/ul (4.5-11.0)
[2017-04-01] MEDS: Insulin Reg-MEDIUM-Coverage SC SCH ×4 (08:09→21:28)
[2017-04-01] MEDS: Multivitamin Vitamin B Complex (Nephro-Vite) Tab PO SCH (09:38)
[2017-04-01] MEDS: Pantoprazole 20 mg EC Tab PO SCH (09:40)
--- NOTE | 2017-04-01 11:01 | CP.PCM.PN ---
<Gina Farris - Last Filed: 04/01/17 10:56> Subjective - Date & Time of Evaluation Date of Evaluation: 04/01/17 Time of Evaluation: 10:56 - Subjective Subjective: 76 y/o male seen at bedside for bilateral gangrenous heel ulcerations, left worse than right. Patient appears resting comfortably in NAD and AAOx3. Patient denies any pain in his heels. Patient wearing multipodus boots bilaterally. Patient denies any new pedal complaints. Denies n/f/v/d/c/sob. Objective - Vital Signs/Intake and Output Vital Signs (last 24 hours): Temp Pulse Resp BP Pulse Ox 97.8 F 54 L 18 111/48 L 99 04/01/17 08:05 04/01/17 08:05 04/01/17 08:05 04/01/17 08:05 04/01/17 08:05 Intake and Output: 04/01/17 04/01/17 06:59 18:59 Intake Total 405 Balance 405 - Medications Medications: Current Medications Acetaminophen (Tylenol 325mg Tab) 325 mg PO Q4H PRN PRN Reason: Fever >100.4 F Amlodipine Besylate (Norvasc) 10 mg PO DAILY [facility] Last Admin: 03/31/17 10:46 Dose: 10 mg Cinacalcet (Sensipar) 30 mg PO DAILY [facility] Clonidine HCl (Catapres) 0.1 mg PO Q8 PRN PRN Reason: SBP 170 OR MORE Donepezil HCl (Aricept) 10 mg PO HS [facility] Last Admin: 03/31/17 21:23 Dose: 10 mg Hydralazine HCl (Apresoline) 100 mg PO Q8 [facility] Last Admin: 04/01/17 05:58 Dose: Not Given Piperacillin Sod/Tazobactam Sod (Zosyn 2.25 Gm In 0.9% 100 Ml) 2.25 gm in 100 mls @ 100 mls/hr IVPB Q6 [facility] PRN Reason: Protocol Stop: 04/07/17 00:01 Last Admin: 04/01/17 05:58 Dose: 100 mls/hr Linezolid (Zyvox 600mg/300ml D5w) 600 mg in 300 mls @ 200 mls/hr IVPB Q12 [facility] PRN Reason: Protocol Stop: 04/06/17 22:01 Last Admin: 03/31/17 23:40 Dose: 200 mls/hr Insulin Human Regular (Humulin R Med) 0 units SC ACHS [facility] PRN Reason: Protocol Last Admin: 03/31/17 22:21 Dose: Not Given Lactulose (Enulose) 20 gm PO BID [facility] Last Admin: 03/31/17 18:43 Dose: 20 gm Pantoprazole Sodium (Protonix Ec Tab) 20 mg PO DAILY [facility] Last Admin: 03/31/17 09:00 Dose: 20 mg Pregabalin (Lyrica) 50 mg PO TID [facility] Last Admin: 03/31/17 18:44 Dose: 50 mg Risperidone (Risperdal Tab) 1 mg PO HS [facility] PRN Reason: Protocol Sevelamer HCl (Renagel) 800 mg PO TID [facility] Last Admin: 03/31/17 18:44 Dose: 800 mg Silver Sulfadiazine (Silvadene 1% 25 Gm) 25 gm TP DAILY [facility] Last Admin: 03/31/17 09:01 Dose: 25 gm Valsartan (Diovan) 320 mg PO DAILY [facility] Last Admin: 03/31/17 09:00 Dose: 320 mg Vitamin B Complex/Vit C/Folic Acid (Nephro-Yudi) 1 tab PO DAILY [facility] Last Admin: 03/31/17 09:00 Dose: 1 tab - Labs Labs: 04/01/17 05:00 04/01/17 05:00 APTT 31.9 Seconds (25.1-36.5) 03/30/17 17:51 - Constitutional Appears: Well, Non-toxic, No Acute Distress - Extremities Exam Additional comments: Vasc: nonpalpable pedal pulses bilateral, +1 pitting edema to lower extremities b/l, TG wnl, CFT < 4 sec to all digits neuro: grossly diminished derm: lower extremity skin appears thin, shiny discolored, nails are elongated, dystrophic x 10, full thickness ulceration on left heel with necrotic eschar, no fluctuance, moderate malodor, no purulence, no drainage, no ascending cellulitis, negative probe to bone, right heel preulcerative lesion with no fluctuance, no purulence no drainage ortho: no pain on palpation to bilateral heels - Neurological Exam Neurological Exam: Alert, Awake, Oriented x3 - Psychiatric Exam Psychiatric exam: Normal Affect, Normal Mood Assessment and Plan - Assessment and Plan (Free Text) Assessment: 76 y/o male seen at bedside for gangrenous heel ulcerations, left greater than right Plan: patient evaluated and chart reviewed discussed with attending Dr. Carlson labs and vitals reviewed; afebrile , WBC 6.2 wound cx: preliminary- gram negative lynsey x rays negative for OM follow up vascular reccs possible surgical debridement of left heel eschar depending on vascular reccs applied betadine, DSD to bilateral heels continue offloading multipodus boots while bed bound podiatry will continue to follow while patient remains in house <Phu Carlson - Last Filed: 04/05/17 08:51> Objective - Vital Signs/Intake and Output Vital Signs (last 24 hours): Temp Pulse Resp BP Pulse Ox 97.6 F 52 L 18 153/58 H 96 04/05/17 07:15 04/05/17 07:15 04/05/17 07:15 04/05/17 07:15 04/05/17 07:15 Intake and Output: 04/05/17 04/05/17 06:59 18:59 Intake Total 780 0 Output Total 0 Balance 780 0 - Medications Medications: Current Medications Acetaminophen (Tylenol 325mg Tab) 325 mg PO Q4H PRN PRN Reason: Fever >100.4 F Acetaminophen (Tylenol 325mg Tab) 650 mg PO Q6H PRN PRN Reason: Pain, Mild (1-3) Amlodipine Besylate (Norvasc) 10 mg PO DAILY [facility] Last Admin: 04/04/17 10:26 Dose: 10 mg Carvedilol (Coreg) 6.25 mg PO BID [facility] Last Admin: 04/04/17 18:11 Dose: Not Given Cinacalcet (Sensipar) 30 mg PO DAILY [facility] Last Admin: 04/04/17 10:27 Dose: 30 mg Clonidine HCl (Catapres) 0.1 mg PO Q8 PRN PRN Reason: SBP 170 OR MORE Donepezil HCl (Aricept) 10 mg PO HS [facility] Last Admin: 04/04/17 21:55 Dose: 10 mg Hydralazine HCl (Apresoline) 100 mg PO Q8 [facility] Last Admin: 04/05/17 06:32 Dose: Not Given Piperacillin Sod/Tazobactam Sod (Zosyn 2.25 Gm In 0.9% 100 Ml) 2.25 gm in 100 mls @ 100 mls/hr IVPB Q6 [facility] PRN Reason: Protocol Stop: 04/07/17 00:01 Last Admin: 04/05/17 05:50 Dose: 100 mls/hr Linezolid (Zyvox 600mg/300ml D5w) 600 mg in 300 mls @ 200 mls/hr IVPB Q12 [facility] PRN Reason: Protocol Stop: 04/06/17 22:01 Last Admin: 04/04/17 21:55 Dose: 200 mls/hr Insulin Human Regular (Humulin R Med) 0 units SC ACHS [facility] PRN Reason: Protocol Last Admin: 04/05/17 08:17 Dose: Not Given Lactulose (Enulose) 20 gm PO BID [facility] Last Admin: 04/04/17 18:11 Dose: 20 gm Oxycodone/Acetaminophen (Percocet 5/325 Mg Tab) 1 tab PO Q6H PRN PRN Reason: Pain, moderate (4-7) Stop: 04/08/17 08:49 Oxycodone/Acetaminophen (Percocet 5/325 Mg Tab) 2 tab PO Q6H PRN PRN Reason: Pain, severe (8-10) Stop: 04/08/17 08:49 Pantoprazole Sodium (Protonix Ec Tab) 20 mg PO DAILY [facility] Last Admin: 04/04/17 10:26 Dose: 20 mg Pregabalin (Lyrica) 50 mg PO TID [facility] Last Admin: 04/04/17 18:11 Dose: 50 mg Risperidone (Risperdal Tab) 1 mg PO HS [facility] PRN Reason: Protocol Sevelamer HCl (Renagel) 800 mg PO TID [facility] Last Admin: 04/04/17 18:11 Dose: 800 mg Silver Sulfadiazine (Silvadene 1% 25 Gm) 25 gm TP DAILY [facility] Last Admin: 04/03/17 11:44 Dose: Not Given Valsartan (Diovan) 320 mg PO DAILY [facility] Last Admin: 04/04/17 10:27 Dose: 320 mg Vitamin B Complex/Vit C/Folic Acid (Nephro-Yudi) 1 tab PO DAILY [facility] Last Admin: 04/04/17 10:27 Dose: 1 tab - Labs Labs: 04/05/17 06:30 04/05/17 06:30 APTT 31.9 Seconds (25.1-36.5) 03/30/17 17:51 Attending/Attestation - Attestation I have personally seen and examined this patient.: Yes I have fully participated in the care of the patient.: Yes I have reviewed all pertinent clinical information, including history, physical exam and plan: Yes
[2017-04-01] MEDS: Linezolid 600 mg in D5W 300 ml 600 MG/300 ML BAG IVPB SCH ×2 (11:57→21:16)
[2017-04-01] MEDS: Silver Sulfadiazine 1% Cream (25 gm) TP SCH (14:41)
--- NOTE | 2017-04-01 19:29 | PN ---
DATE: 04/01/2017 SUBJECTIVE: The patient is seen in bed in no acute distress, nontoxic. No fevers or chills. OBJECTIVE: VITAL SIGNS: Temperature is 97, blood pressure is 111/40, and respiratory rate of 16. HEENT: Unremarkable. NECK: Supple. LUNGS: Have decreased breath sounds. HEART: Normal S1 and S2. ABDOMEN: Soft and nontender. LABORATORY DATA: Reveals a white count of 6.2, hemoglobin of 9, and platelets of 74. Sed rate is 126. BUN of 23 and creatinine of 3.3. Microbiology reveals a Gram-negative lynsey in the right foot, heavy growth. Review of orders reveals the patient to be on Zosyn and Zyvox. ASSESSMENT AND PLAN: A 76-year-old male from a [facility] with diabetes, hypertension, chronically ill, debilitated, coronary artery disease, chronic renal failure, hepatitis B and hepatitis C, history of bullous pemphigoid, history of renal cancer and bilateral now presenting in this situation with bilateral with Gram-negative lynsey, on Zosyn and Zyvox. Awaiting for final culture results, vascular workup, podiatric workup, rule out underlying osteomyelitis and peripheral artery disease. Workup in progress. We will follow with you. Check on the identification of the organism. Ibrahima Lara MD
[2017-04-02] MEDS: Piperacillin/Tazobact 2.25gm 2.25 GM/100 ML BAG IVPB SCH ×4 (00:01→20:02)
[2017-04-02] MEDS: Insulin Reg-MEDIUM-Coverage SC SCH ×4 (08:24→22:23)
[2017-04-02] MEDS: Multivitamin Vitamin B Complex (Nephro-Vite) Tab PO SCH (10:25)
[2017-04-02] MEDS: Pantoprazole 20 mg EC Tab PO SCH (10:25)
--- NOTE | 2017-04-02 12:08 | CP.PCM.PN ---
Subjective - Date & Time of Evaluation Date of Evaluation: 04/02/17 Time of Evaluation: 12:03 - Subjective Subjective: Progress note for nephrology, Dr. Garcia Pt is seen and examined at bedside. No acute events overnight. patient is resting comfortably after eating breakfast. he denies having any LE pain or discomfort. Denies having any chest pain, shortness of breath, abdominal pain, nausea, vomiting, diarrhea. Objective - Vital Signs/Intake and Output Vital Signs (last 24 hours): Temp Pulse Resp BP Pulse Ox 97.2 F L 54 L 18 128/59 L 100 04/02/17 08:58 04/02/17 08:58 04/02/17 08:58 04/02/17 10:27 04/02/17 08:58 Intake and Output: 04/02/17 04/02/17 06:59 18:59 Intake Total 180 Output Total 0 Balance 180 - Medications Medications: Current Medications Acetaminophen (Tylenol 325mg Tab) 325 mg PO Q4H PRN PRN Reason: Fever >100.4 F Amlodipine Besylate (Norvasc) 10 mg PO DAILY [facility] Last Admin: 04/02/17 10:27 Dose: Not Given Cinacalcet (Sensipar) 30 mg PO DAILY [facility] Last Admin: 04/02/17 10:25 Dose: 30 mg Clonidine HCl (Catapres) 0.1 mg PO Q8 PRN PRN Reason: SBP 170 OR MORE Donepezil HCl (Aricept) 10 mg PO HS [facility] Last Admin: 04/01/17 21:16 Dose: 10 mg Hydralazine HCl (Apresoline) 100 mg PO Q8 [facility] Last Admin: 04/02/17 06:21 Dose: Not Given Piperacillin Sod/Tazobactam Sod (Zosyn 2.25 Gm In 0.9% 100 Ml) 2.25 gm in 100 mls @ 100 mls/hr IVPB Q6 [facility] PRN Reason: Protocol Stop: 04/07/17 00:01 Last Admin: 04/02/17 05:10 Dose: 100 mls/hr Linezolid (Zyvox 600mg/300ml D5w) 600 mg in 300 mls @ 200 mls/hr IVPB Q12 [facility] PRN Reason: Protocol Stop: 04/06/17 22:01 Last Admin: 04/01/17 21:16 Dose: 200 mls/hr Insulin Human Regular (Humulin R Med) 0 units SC ACHS [facility] PRN Reason: Protocol Last Admin: 04/02/17 08:24 Dose: Not Given Lactulose (Enulose) 20 gm PO BID [facility] Last Admin: 04/02/17 10:27 Dose: 20 gm Pantoprazole Sodium (Protonix Ec Tab) 20 mg PO DAILY [facility] Last Admin: 04/02/17 10:25 Dose: 20 mg Pregabalin (Lyrica) 50 mg PO TID [facility] Last Admin: 04/02/17 10:25 Dose: 50 mg Risperidone (Risperdal Tab) 1 mg PO HS [facility] PRN Reason: Protocol Sevelamer HCl (Renagel) 800 mg PO TID [facility] Last Admin: 04/02/17 10:25 Dose: 800 mg Silver Sulfadiazine (Silvadene 1% 25 Gm) 25 gm TP DAILY [facility] Last Admin: 04/01/17 14:41 Dose: 25 gm Valsartan (Diovan) 320 mg PO DAILY [facility] Last Admin: 04/02/17 10:26 Dose: 320 mg Vitamin B Complex/Vit C/Folic Acid (Nephro-Yudi) 1 tab PO DAILY [facility] Last Admin: 04/02/17 10:25 Dose: 1 tab - Labs Labs: 04/01/17 05:00 04/01/17 05:00 APTT 31.9 Seconds (25.1-36.5) 03/30/17 17:51 - Constitutional Appears: Non-toxic, No Acute Distress - Head Exam Head Exam: ATRAUMATIC, NORMAL INSPECTION, NORMOCEPHALIC - Eye Exam Eye Exam: EOMI, Normal appearance, PERRL Pupil Exam: NORMAL ACCOMODATION, PERRL - ENT Exam ENT Exam: Mucous Membranes Moist, Normal Exam - Neck Exam Neck Exam: Full ROM, Normal Inspection. absent: Lymphadenopathy - Respiratory Exam Respiratory Exam: Clear to Ausculation Bilateral, NORMAL BREATHING PATTERN - Cardiovascular Exam Cardiovascular Exam: REGULAR RHYTHM, +S1, +S2. absent: Murmur - GI/Abdominal Exam GI & Abdominal Exam: Soft, Normal Bowel Sounds. absent: Tenderness - Rectal Exam Rectal Exam: NORMAL INSPECTION - Exam Exam: Circumcision, NORMAL INSPECTION External exam: NORMAL EXTERNAL EXAM Speculum exam: NORMAL SPECULUM EXAM Bimanual exam: NORMAL BIMANUAL EXAM - Extremities Exam Extremities Exam: absent: Joint Swelling, Pedal Edema Additional comments: dressings in place on bilateral heels. - Back Exam Back Exam: NORMAL INSPECTION - Neurological Exam Neurological Exam: Alert, Awake - Psychiatric Exam Psychiatric exam: Normal Affect, Normal Mood - Skin Skin Exam: Dry, Normal Color, Warm Assessment and Plan - Assessment and Plan (Free Text) Assessment: 76 year old male with past medical history of ESRD on HD TTS, dementia and heel ulcers is admitted for bilateral heel ulcerations. Nephro is consulted for ESRD and HD. Plan: 1. ESRD on HD Patient is scheduled for HD TTS. Will check electrolytes today for status. 2. Hypertensive ESRD Blood pressure currently stable. Continue amlodipine 10 mg QD, hydralazine 100 mg q8, valsartan 320 mg po qd. Clonidine .1 mg po prn to b given only when SBP >180 and not to be given on days of dialysis. 3. CKD- mineral bone disease Continue Sensipar 30 mg QD, Sevelamer 1 tab tid with meals. Phos and vitamin d levels pending 4. Acute on chronic anemia Patient was transfused 1 unit of PRBC on 03/31. Will recheck H/H today to see if stable levels. Will also check stool occult to determine why pt had acute drop in Hgb. 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 Patient receives Micera 200 mcg [id number] as EPO formulation. 5. Heel ulceration Currently on Zyvox and Zosyn 2.25 mg q6 which is dose adjusted for ESRD. Wound culture positive for Proteus Mirabilis . Continue management per podiatry recs. 6. Dementia Avoid meds that cause sedation All recommendations and orders per Dr. Garcia.
[2017-04-02 12:46] LABS: BASO # 0.01 K/mm3 (0.0-2.0); BASO % 0.2 % (0.0-3.0); EOS # 0.2 (0.0-0.7); EOS % 2.7 % (1.5-5.0); GRAN # 4.82 (1.4-6.5); HEMATOCRIT 29.5 % (42.0-52.0); LYMPH # 0.7 (1.2-3.4); LYMPH % 11.9 % (22.0-35.0); MEAN CELL VOLUME 86.3 fl (80.0-105.0); MEAN CORPUSCULAR HEMOGLOBIN 27.5 pg (25.0-35.0); MEAN CORPUSCULAR HGB CONC 31.9 g/dl (31.0-37.0); MEAN PLATELET VOLUME 10.8 fl (7.0-11.0); MONO # 0.3 (0.1-0.6); MONO % 4.2 % (1.0-6.0); RED CELL DISTRIBUTION WIDTH 16.2 % (11.5-14.5)
[2017-04-02 13:04] LABS: IRON 25 ug/dL (45-180)
[2017-04-02 13:11] LABS: ALB/GLOB RATIO 0.7 (1.1-1.8); BILIRUBIN,TOTAL 0.4 mg/dL (0.2-1.3); CALCIUM 9.8 mg/dL (8.4-10.5); PHOSPHOROUS 4.9 mg/dL (2.5-4.5); POTASSIUM 3.7 mmol/L (3.6-5.0)
--- NOTE | 2017-04-02 17:23 | CP.PCM.PN ---
Subjective - Date & Time of Evaluation Date of Evaluation: 04/02/17 Time of Evaluation: 10:30 - Subjective Subjective: Comfortable, no fevers, not in distress. Objective - Vital Signs/Intake and Output Vital Signs (last 24 hours): Temp Pulse Resp BP Pulse Ox 97.2 F L 54 L 18 128/59 L 100 04/02/17 08:58 04/02/17 08:58 04/02/17 08:58 04/02/17 08:58 04/02/17 08:58 Intake and Output: 04/02/17 04/02/17 06:59 18:59 Intake Total 180 Output Total 0 Balance 180 - Medications Medications: Current Medications Acetaminophen (Tylenol 325mg Tab) 325 mg PO Q4H PRN PRN Reason: Fever >100.4 F Amlodipine Besylate (Norvasc) 10 mg PO DAILY [facility] Last Admin: 04/01/17 09:38 Dose: 10 mg Cinacalcet (Sensipar) 30 mg PO DAILY [facility] Last Admin: 04/01/17 09:41 Dose: 30 mg Clonidine HCl (Catapres) 0.1 mg PO Q8 PRN PRN Reason: SBP 170 OR MORE Donepezil HCl (Aricept) 10 mg PO HS [facility] Last Admin: 04/01/17 21:16 Dose: 10 mg Hydralazine HCl (Apresoline) 100 mg PO Q8 [facility] Last Admin: 04/02/17 06:21 Dose: Not Given Piperacillin Sod/Tazobactam Sod (Zosyn 2.25 Gm In 0.9% 100 Ml) 2.25 gm in 100 mls @ 100 mls/hr IVPB Q6 [facility] PRN Reason: Protocol Stop: 04/07/17 00:01 Last Admin: 04/02/17 05:10 Dose: 100 mls/hr Linezolid (Zyvox 600mg/300ml D5w) 600 mg in 300 mls @ 200 mls/hr IVPB Q12 [facility] PRN Reason: Protocol Stop: 04/06/17 22:01 Last Admin: 04/01/17 21:16 Dose: 200 mls/hr Insulin Human Regular (Humulin R Med) 0 units SC ACHS [facility] PRN Reason: Protocol Last Admin: 04/02/17 08:24 Dose: Not Given Lactulose (Enulose) 20 gm PO BID [facility] Last Admin: 04/01/17 18:56 Dose: 20 gm Pantoprazole Sodium (Protonix Ec Tab) 20 mg PO DAILY [facility] Last Admin: 04/01/17 09:40 Dose: 20 mg Pregabalin (Lyrica) 50 mg PO TID [facility] Last Admin: 04/01/17 18:57 Dose: 50 mg Risperidone (Risperdal Tab) 1 mg PO [facility] PRN Reason: Protocol Sevelamer HCl (Renagel) 800 mg PO TID [facility] Last Admin: 04/01/17 18:57 Dose: 800 mg Silver Sulfadiazine (Silvadene 1% 25 Gm) 25 gm TP DAILY [facility] Last Admin: 04/01/17 14:41 Dose: 25 gm Valsartan (Diovan) 320 mg PO DAILY [facility] Last Admin: 04/01/17 09:37 Dose: 320 mg Vitamin B Complex/Vit C/Folic Acid (Nephro-Yudi) 1 tab PO DAILY [facility] Last Admin: 04/01/17 09:38 Dose: 1 tab - Labs Labs: 04/01/17 05:00 04/01/17 05:00 APTT 31.9 Seconds (25.1-36.5) 03/30/17 17:51 - Constitutional Appears: Non-toxic - Head Exam Head Exam: NORMAL INSPECTION - Neck Exam Neck Exam: absent: Meningismus - Respiratory Exam Respiratory Exam: Decreased Breath Sounds - Cardiovascular Exam Cardiovascular Exam: +S1, +S2 - GI/Abdominal Exam GI & Abdominal Exam: Soft. absent: Tenderness - Extremities Exam Additional comments: both feet with dressings in place Assessment and Plan - Assessment and Plan (Free Text) Plan: Assessment bilateral gangrenous heel ulcers Possible hemochromatosis DM HTN dyslipidemia ESRD on HD renal cancer S/P partial nephrectomy hepatitis B and C infection history of bullous pemphigoid CAD Plan continue Zyvox and Zosyn pending gram negative bacilli identification and sensitivities; follow up Podiatry evaluation
[2017-04-02] MEDS: Linezolid 600 mg in D5W 300 ml 600 MG/300 ML BAG IVPB SCH ×2 (18:26→21:21)
[2017-04-02] MEDS: Silver Sulfadiazine 1% Cream (25 gm) TP SCH (18:29)
[2017-04-03] MEDS: Piperacillin/Tazobact 2.25gm 2.25 GM/100 ML BAG IVPB SCH ×4 (00:25→19:13)
--- NOTE | 2017-04-03 04:14 | CON ---
DATE:04/02/2017 CONSULTATION SERVICE: Cardiology. REFERRING PHYSICIAN: Ulysses Flaherty MD REASON FOR CONSULTATION: Preop evaluation, risk stratification for foot gangrene and possible amputation. BRIEF CLINICAL HISTORY: This is a 76-year-old male with past medical history significant for diabetes; hypertension; hyperlipidemia; peripheral arterial disease; end-stage renal disease, on dialysis; hepatitis B; history of nephrectomy, on dialysis; questionable history of dementia, admitted here for the left foot gangrene and possible debridement or amputation, preop evaluation and risk stratification, Cardiology consult was called. The patient denies any chest pain. Denies shortness of breath. Denies any palpitation. The patient is seen in room 362 having a central line for poor venous access. PAST MEDICAL HISTORY: Significant for chronic renal insufficiency, on dialysis; history of hepatitis B; history of nephrectomy; solitary kidney and a possible mass; history of dementia; history of bedridden most of the time; history of CVA; generalized weakness; diabetes; hypertension; and hyperlipidemia. SOCIAL HISTORY: Denies smoking. Denies any history of alcohol abuse. CURRENT MEDICATIONS: The patient is taking at home valsartan 320 mg daily, Tylenol, silver sulfadiazine, Risperdal, multivitamin, B complex, hydralazine 100 mg q.8 hours, heparin, Aricept, clonidine, Sensipar, and aspirin. ALLERGIES: NO KNOWN DRUG ALLERGIES. The patient had last echocardiography done by Dr. Moses on 09/30/2012, that showed ejection fraction of 78% and reported normal LV function, grade I diastolic dysfunction, no regional wall motion abnormality, calculated ejection fraction 65% to 70%, normal RV. No valvular regurgitation noted. EKG showed normal sinus, first-degree AV block, otherwise normal, rate of 62. REVIEW OF SYSTEMS: As per HPI. PHYSICAL EXAMINATION: VITAL SIGNS: Temperature afebrile, heart rate 54, and blood pressure 120/90. HEENT: PERRLA. Extraocular muscles intact. NECK: Supple. No carotid bruits or thyromegaly. CHEST: Clear to auscultation. HEART: S1 and S2 regular. ABDOMEN: Soft. EXTREMITIES: Clubbing and cyanosis negative. Gangrene noted in the foot. LABORATORY DATA: Blood workup; WBC 6, hematocrit 29.5, and platelet count 75. Chemistry shows sodium 130, potassium 3.7, chloride 99, carbon dioxide 28, anion gap of 14, BUN 30, and creatinine 5.1. IMPRESSION: 1. End-stage renal disease, on dialysis. 2. Hypertension. 3. Hyperlipidemia. 4. Diabetes. 5. Severe peripheral arterial disease. 6. Gangrene, requiring amputation. RECOMMENDATIONS: The patient is not an absolute contraindication for surgery to sepsis. Last echo, 4 years ago, was a preserved LV function. We will suggest to get an echo to assess LV function. Further recommendation will depend on the hospital course. We will follow with you. Continue broad-spectrum antibiotics. Findings, the initial workup also included lipid profile, TSH, and hemoglobin A1c. Thank you Dr. Aguirre for providing opportunity in taking care of the patient, Misha Nye. Ulysses Flaherty MD
[2017-04-03 07:30] LABS: HEMATOCRIT 27.4 % (42.0-52.0); MEAN CORPUSCULAR HGB CONC 32.1 g/dl (31.0-37.0); PLATELET COUNT 81 10^3/uL (120.0-450.0); RED CELL DISTRIBUTION WIDTH 16.2 % (11.5-14.5); WHITE BLOOD COUNT 5.7 10^3/ul (4.5-11.0)
--- NOTE | 2017-04-03 07:43 | CON ---
DATE: 04/02/2017 LOCATION: The patient is in room 363, bed 2. REASON FOR CONSULTATION: Anemia and thrombocytopenia. BACKGROUND HISTORY: The patient is having renal azotemia, left foot gangrene, for possible debridement or amputation. HISTORY OF PRESENT ILLNESS: This is a 76-year-old male with history of chronic renal failure, on hemodialysis; chronic hepatitis B; history of nephrectomy, currently on hemodialysis; history of dementia, under the care of Dr. Carlosn for his foot problems. Podiatry, Dr. Carlson, recommended the patient be admitted for debridement of partial or maybe even below-knee amputation if needed. The patient clinically denied any complaints. No chest pain, shortness of breath. snf resident, getting dialysis over there. Denies any history of fever, chills, nausea, vomiting or any other significant complaints. REVIEW OF SYSTEMS: A 12 systems reviewed, all systems are negative except for what is mentioned in the HPI. PAST MEDICAL HISTORY: Significant for chronic renal failure, dementia, chronic hepatitis B, nephrectomy, the patient has only one kidney and possible kidney mass. He refuses any other surgery. Currently, he is bedridden most of the time, but he can sit on chair at times. The patient has anemia, end-stage renal disease, and possible CVA in the past. The patient has behavioral disorders, generalized weakness and hypertension. He is on insulin and insulin coverage for his diabetes mellitus. MEDICATIONS: He is on hydralazine 100 mg q.8 hours, Aricept 10 mg p.o. at bedtime, Catapres 0.1 mg q.8 hours p.r.n., Diovan 320 mg p.o. daily, lactulose b.i.d., Lyrica 50 t.i.d., vitamin D complex, Norvasc 10 mg p.o. daily, Protonix 20 mg p.o. daily, Renagel 800 mg t.i.d., Risperdal 1 mg p.o. at bedtime, Sensipar 30 mg p.o. daily, Silvadene 1% topically, Tylenol p.r.n., folic acid with vitamin B. The patient is also on heparin subcutaneous. In the rehab, he is getting Aricept 10 mg p.o. daily and aspirin 325 mg . ALLERGIES: THE PATIENT HAS NO KNOWN ALLERGIES. PHYSICAL EXAMINATION GENERAL: The patient is comfortable, in no acute distress. VITAL SIGNS: Stable. T-max is 98.4, heart is 67, blood pressure is 136/60, respirations 18, and O2 sat is 100% on 2 L of oxygen. HEENT: Head is normocephalic, atraumatic. Examination of oropharynx reveals no oropharyngeal lesion. Tongue reveals it to be moist. There is no evidence of any fungal infection. No ulcerations of tongue is noted. NECK: No jugular venous distention is noted. LUNGS: clear to percussion and auscultation. HEART: Reveals S1 and S2 to be normal. No gallop or murmur is heard. ABDOMEN: Soft and nontender. EXTREMITIES: Reveal no edema. He has poor muscle mass at this point. His left heel looks dark and gangrenous and both his feet have heel cushions. NEUROLOGIC: The patient has generalized weakness on neurologic exam without any focalizing finding. LABORATORY DATA: Reveals a white count of 9.1, hemoglobin 9.1, hematocrit 28, and platelet count 98,000. Chemistry reveals sodium of 141, K is 4.4, chloride is 100, bicarb is 34, BUN of 40, creatinine of 5.3, blood sugar 122. Liver enzymes are normal. Troponin is 0.02. Albumin and globulin are within normal limits. Trend of the platelet count reviewed, has been ranging between 98,000 to 75,000. ASSESSMENT NOTES AND PLAN: The patient has multiple comorbid issues accounting for the anemia and thrombocytopenia, could be related to his underlying kidney dysfunction while on dialysis association with thrombocytopenia, raises the issue whether this is related to the underlying possible infection with evolution of gangrene in the lower extremity. We will continue to monitor the platelet count, probably we will have to discuss with Nephrology whether we need to cut back or stop the aspirin and the heparin for now until we have further delineation as to the drop in the platelet counts. We will speak to the primary attending and speak to the certified paralegal as well before making any decisions. Time spent in reviewing the patient's chart and going over all the labs about an hour. This is a complex patient with multiple comorbid medical issues. Chiquita Jackson MD [facility] # [id number]
[2017-04-03 07:46] LABS: ALB/GLOB RATIO 0.6 (1.1-1.8); BILIRUBIN,TOTAL 0.2 mg/dL (0.2-1.3); CALCIUM 9.2 mg/dL (8.4-10.5); POTASSIUM 3.7 mmol/L (3.6-5.0); TOTAL PROTEIN 6.8 g/dL (5.8-8.3)
[2017-04-03] MEDS: Insulin Reg-MEDIUM-Coverage SC SCH ×4 (08:00→21:56)
[2017-04-03 08:44] LABS: RETIC% 1.04 % (0.5-1.5)
--- NOTE | 2017-04-03 10:16 | CP.PCM.PN ---
<Carmel Perez - Last Filed: 04/03/17 15:33> Subjective - Date & Time of Evaluation Date of Evaluation: 04/03/17 Time of Evaluation: 07:45 - Subjective Subjective: Heme/onc progress note for Dr Jackson's service. Patient's demented, in no acute distress. Afebrile. Getting HD. Objective - Vital Signs/Intake and Output Vital Signs (last 24 hours): Temp Pulse Resp BP Pulse Ox 97.4 F L 54 L 16 138/61 100 04/03/17 08:25 04/03/17 08:25 04/03/17 08:25 04/03/17 08:25 04/03/17 06:00 Intake and Output: 04/03/17 04/03/17 06:59 18:59 Intake Total 560 Balance 560 - Medications Medications: Current Medications Acetaminophen (Tylenol 325mg Tab) 325 mg PO Q4H PRN PRN Reason: Fever >100.4 F Amlodipine Besylate (Norvasc) 10 mg PO DAILY [facility] Last Admin: 04/02/17 10:27 Dose: Not Given Carvedilol (Coreg) 3.125 mg PO BID [facility] Last Admin: 04/02/17 18:17 Dose: Not Given Cinacalcet (Sensipar) 30 mg PO DAILY [facility] Last Admin: 04/02/17 10:25 Dose: 30 mg Clonidine HCl (Catapres) 0.1 mg PO Q8 PRN PRN Reason: SBP 170 OR MORE Donepezil HCl (Aricept) 10 mg PO HS [facility] Last Admin: 04/02/17 21:29 Dose: 10 mg Hydralazine HCl (Apresoline) 100 mg PO Q8 [facility] Last Admin: 04/03/17 05:28 Dose: Not Given Piperacillin Sod/Tazobactam Sod (Zosyn 2.25 Gm In 0.9% 100 Ml) 2.25 gm in 100 mls @ 100 mls/hr IVPB Q6 [facility] PRN Reason: Protocol Stop: 04/07/17 00:01 Last Admin: 04/03/17 05:27 Dose: 100 mls/hr Linezolid (Zyvox 600mg/300ml D5w) 600 mg in 300 mls @ 200 mls/hr IVPB Q12 [facility] PRN Reason: Protocol Stop: 04/06/17 22:01 Last Admin: 04/02/17 21:21 Dose: Not Given Insulin Human Regular (Humulin R Med) 0 units SC ACHS [facility] PRN Reason: Protocol Last Admin: 04/03/17 08:00 Dose: Not Given Lactulose (Enulose) 20 gm PO BID [facility] Last Admin: 04/02/17 18:16 Dose: 20 gm Pantoprazole Sodium (Protonix Ec Tab) 20 mg PO DAILY [facility] Last Admin: 04/02/17 10:25 Dose: 20 mg Pregabalin (Lyrica) 50 mg PO TID [facility] Last Admin: 04/02/17 18:28 Dose: Not Given Risperidone (Risperdal Tab) 1 mg PO HS [facility] PRN Reason: Protocol Sevelamer HCl (Renagel) 800 mg PO TID [facility] Last Admin: 04/02/17 18:16 Dose: 800 mg Silver Sulfadiazine (Silvadene 1% 25 Gm) 25 gm TP DAILY [facility] Last Admin: 04/02/17 18:29 Dose: 25 gm Valsartan (Diovan) 320 mg PO DAILY [facility] Last Admin: 04/02/17 10:26 Dose: 320 mg Vitamin B Complex/Vit C/Folic Acid (Nephro-Yudi) 1 tab PO DAILY [facility] Last Admin: 04/02/17 10:25 Dose: 1 tab - Labs Labs: 04/03/17 07:00 04/03/17 07:00 APTT 31.9 Seconds (25.1-36.5) 03/30/17 17:51 - Constitutional Appears: No Acute Distress - Head Exam Head Exam: ATRAUMATIC, NORMAL INSPECTION, NORMOCEPHALIC - Eye Exam Eye Exam: EOMI, Normal appearance, PERRL. absent: Scleral icterus Pupil Exam: NORMAL ACCOMODATION - ENT Exam ENT Exam: Mucous Membranes Moist - Neck Exam Neck Exam: Normal Inspection - Respiratory Exam Respiratory Exam: Clear to Ausculation Bilateral, NORMAL BREATHING PATTERN. absent: Rales, Rhonchi, Wheezes, Respiratory Distress, Stridor - Cardiovascular Exam Cardiovascular Exam: REGULAR RHYTHM, +S1, +S2. absent: Murmur - GI/Abdominal Exam GI & Abdominal Exam: Soft, Normal Bowel Sounds. absent: Firm, Guarding, Rigid, Tenderness - Extremities Exam Extremities Exam: absent: Normal Inspection Additional comments: fei heel with ulceration, unable to palpate pulses. - Neurological Exam Neurological Exam: Alert, Awake - Psychiatric Exam Psychiatric exam: Normal Affect, Normal Mood - Skin Skin Exam: Dry, Warm Assessment and Plan - Assessment and Plan (Free Text) Assessment: Patient is a 76 y/o with multiple comorbidities from custodial whom presented to [facility] with diabetic foot, being treated for bilateral gangrenous heels, with wound cultures currency growing multiple organisms, ESRD on HD, h/o possible renal cell carcinoma, anemia of chronic disease, thrombocytopenia. Dr Jackson is consulted for anemia and thrombocytopenia. 1) Anemia is likely due to ESRD, patient is on high dose epo as outpatient 2) Thrombocytopenia r/o HIT 3) H/o chronic hep B 4) Renal cell carcinoma- spoke to patient's daughter, Misti at [phone] on 04/03/17 @1210, states she doesn't want patient to undergo surgery due to dementia and all the comorbidities. 5) Fei heel ulcerations with PVD. Plan: H/H is around patient's baseline. Spoke to Dr Garcia, patient is getting epo as outpatient. For thrombocytopenia, will r/o HIT, will obtain HIT antibodies due to recent heparin exposure. Heparin and asa are currently discontinued. Will continue to monitor plt count. Patient might benefit from Gi consult to reevaluate for hep B treatment. Patient is being followed by multiple services including podiatry, ID and IR for the PVD and gangrenous heel. Continue with current management as per primary. Discussed with Dr Jackson. <Chiquita Jackson P - Last Filed: 04/07/17 23:30> Objective - Vital Signs/Intake and Output Vital Signs (last 24 hours): Temp Pulse Resp BP Pulse Ox 97.7 F 63 18 156/72 H 99 04/07/17 07:30 04/07/17 17:50 04/07/17 07:30 04/07/17 17:50 04/07/17 07:30 Intake and Output: 04/07/17 04/08/17 18:59 06:59 Intake Total 360 Balance 360 - Medications Medications: Current Medications Acetaminophen (Tylenol 325mg Tab) 325 mg PO Q4H PRN PRN Reason: Fever >100.4 F Acetaminophen (Tylenol 325mg Tab) 650 mg PO Q6H PRN PRN Reason: Pain, Mild (1-3) Amlodipine Besylate (Norvasc) 10 mg PO DAILY [facility] Last Admin: 04/07/17 17:50 Dose: 10 mg Aspirin (Ecotrin) 81 mg PO DAILY [facility] Last Admin: 04/07/17 11:18 Dose: 81 mg Carvedilol (Coreg) 6.25 mg PO BID [facility] Last Admin: 04/07/17 17:50 Dose: 6.25 mg Cinacalcet (Sensipar) 30 mg PO DAILY [facility] Last Admin: 04/07/17 09:04 Dose: 30 mg Donepezil HCl (Aricept) 10 mg PO HS [facility] Last Admin: 04/07/17 21:23 Dose: 10 mg Hydralazine HCl (Apresoline) 100 mg PO Q8 [facility] Last Admin: 04/05/17 06:32 Dose: Not Given Insulin Human Regular (Humulin R Med) 0 units SC ACHS [facility] PRN Reason: Protocol Last Admin: 04/07/17 18:02 Dose: Not Given Lactic Acid (Lac-Hydrin 12% Cream (140 G)) 0 ea TOP BID [facility] Last Admin: 04/07/17 10:05 Dose: 1 applic Lactulose (Enulose) 20 gm PO BID [facility] Last Admin: 04/06/17 12:59 Dose: Not Given Pantoprazole Sodium (Protonix Ec Tab) 20 mg PO DAILY [facility] Last Admin: 04/07/17 09:04 Dose: 20 mg Pregabalin (Lyrica) 50 mg PO TID [facility] Last Admin: 04/07/17 17:49 Dose: 50 mg Risperidone (Risperdal Tab) 1 mg PO HS [facility] PRN Reason: Protocol Last Admin: 04/07/17 21:23 Dose: 1 mg Sevelamer HCl (Renagel) 800 mg PO TID [facility] Last Admin: 04/07/17 17:49 Dose: 800 mg Silver Sulfadiazine (Silvadene 1% 25 Gm) 25 gm TP DAILY [facility] Last Admin: 04/07/17 10:00 Dose: 25 gm Valsartan (Diovan) 320 mg PO DAILY [facility] Last Admin: 04/05/17 10:45 Dose: Not Given Vitamin B Complex/Vit C/Folic Acid (Nephro-Yudi) 1 tab PO DAILY [facility] Last Admin: 04/07/17 09:04 Dose: 1 tab - Labs Labs: 04/07/17 12:35 04/07/17 12:35 APTT 31.9 Seconds (25.1-36.5) 03/30/17 17:51 Attending/Attestation - Attestation I have personally seen and examined this patient.: Yes I have fully participated in the care of the patient.: Yes I have reviewed all pertinent clinical information, including history, physical exam and plan: Yes
[2017-04-03] MEDS: Silver Sulfadiazine 1% Cream (25 gm) TP SCH (11:44)
[2017-04-03] MEDS: Pantoprazole 20 mg EC Tab PO SCH (11:44)
[2017-04-03] MEDS: Multivitamin Vitamin B Complex (Nephro-Vite) Tab PO SCH (11:44)
[2017-04-03] MEDS: Linezolid 600 mg in D5W 300 ml 600 MG/300 ML BAG IVPB SCH ×2 (11:44→21:38)
--- NOTE | 2017-04-03 12:29 | PN ---
DATE: 04/02/2017 SUBJECTIVE: The patient is comfortable, going for angiogram in the morning and dialysis. He has no new complaint, sitting, eating. Both legs have heel cushions. PHYSICAL EXAMINATION: VITAL SIGNS: Temperature 97.5, heart rate 55, blood pressure 131/60, respirations 19, and saturating 100%. HEAD AND NECK: Normal. No JVD. No thyromegaly. CHEST: Clear with good air entry. CARDIAC: First sound and second sound normal. ABDOMEN: Soft and nontender. EXTREMITIES: There is no edema. The left leg heel area is dark, looks gangrenous and ishemic. Right leg, there is no evidence of any skin necrosis on the right foot. NEUROLOGIC: He moves all extremities. LABORATORY STUDIES: Shows white count 6, hemoglobin 9.4, hematocrit 29.5, platelets is 75. His chemistry shows sodium 138, potassium 3.7, chloride 99, bicarb 28, BUN 34, creatinine 5.1. Sugar 127, calcium 9.8, phosphorus 4.9, iron is low 25, total iron binding capacity also low. Saturation of iron is low. The patient has ferritin 377 and liver enzymes seems normal. IMPRESSION: 1. Left foot gangrene and cellulitic. We will continue current IV antibiotic, he is getting Zyvox b.i.d. plus Zosyn. ID consult, Dr. Lara, seeing the patient. 2. Diabetes. Continue insulin coverage, stable. 3. The patient has hypertension. Continue Coreg, Diovan, and Catapres. 4. Dementia. Continue Aricept, seems stable. The patient does have significant dementia. 5. Chronic renal failure. Continue hemodialysis. Continue Sensipar, Renagel and seems doing okay, Dr. Kaur taking care of that. 6. The patient does have dementia with agitations. Risperdal seems to be helping him especially at night. PLAN: Continue current therapy. Followup with bonderizer, angiogram in the morning and dialysis and possible surgery day after. Continue current therapy. Barber Aguirre MD
[2017-04-03] MEDS ORDERED: Iodixanol 320 mg/ml 150 ml Bottle IV ONE (13:07)
[2017-04-03] MEDS ORDERED: Lidocaine 2% Inj (20ml) ONE (13:07)
[2017-04-03] MEDS ORDERED: Phenylephrine 10 mg/ml Inj ONE (13:08)
[2017-04-03] MEDS ORDERED: Iodixanol 320 MG/ML 200 ML BOTTLE IV ONE (13:08)
[2017-04-03] MEDS ORDERED: Nitroglycerin 50mg in D5W 50 MG/250 ML BOTTLE IV ONE (13:08)
[2017-04-03] MEDS ORDERED: Midazolam 2 MG/2 ML VIAL ONE ×3 (13:12→14:21)
[2017-04-03] MEDS ORDERED: Iodixanol 320 MG/ML 100 ML BOTTLE IV ONE (14:19)
--- NOTE | 2017-04-03 15:23 | PN ---
DATE: 04/03/2017 REASON FOR THE CONSULTATION AND FOLLOWUP: Preop evaluation stratification for foot gangrene and possible amputation. SUBJECTIVE: The patient denies any chest pain, shortness of breath, or any palpitations. Seen in dialysis, having dialysis. OBJECTIVE: GENERAL: Not in apparent distress, lying flat in the bed. VITAL SIGNS: Temperature afebrile, heart rate 54, blood pressure 138/61. HEENT: PERRLA. Extraocular muscles intact. NECK: Supple. No carotid bruit or thyromegaly. CHEST: Clear to auscultation. HEART: S1, S2 regular. ABDOMEN: Soft. EXTREMITIES: Clubbing and cyanosis negative. LABORATORY DATA: Blood workup as follows: WBC 5.7, hemoglobin 8.8, hematocrit 27.7, platelet count 81. Chemistry: Sodium 137, potassium 3.7, chloride 106, carbon dioxide 24, anion gap of 14, BUN 40, and creatinine 5.7. IMPRESSION: End-stage renal disease, on dialysis; anemia; thrombocytopenia; peripheral arterial disease, admitted for the debridement of gangrene of the left foot and possible amputation. The patient had a stress test. The patient's echocardiogram per in 09/2012 shows ejection fraction 78%, reported normal grade 1 diastolic dysfunction, calculated ejection fraction 70%. Hypertension, hyperlipidemia, diabetes, severe peripheral arterial disease, gangrene, requiring amputation. RECOMMENDATION: No absolute contraindication for wound debridement. Continue dialysis. We will get echo to assess LV function. We will add low dose of Coreg as the blood pressure and heart rate is tolerated. We will follow with you. Thank you, Dr. Aguirre for providing us the opportunity in taking care of the patient, Parris Cabral. Ulysses Flaherty MD
--- NOTE | 2017-04-03 17:24 | CP.PCM.PN ---
<Cristina Rosario - Last Filed: 04/03/17 17:17> Subjective - Date & Time of Evaluation Date of Evaluation: 04/03/17 Time of Evaluation: 17:18 - Subjective Subjective: Podiatry Progress Note - Dr. Quiñones 76 year old male patient seen in angio for nonhealing wounds to bilateral LE, L> R. Dr. Griffith present at time of visit. Patient hemodynamically stable and NAD. Denies any acute events overnight. Denies any new pedal complaints. Denies N/V/F /D/C/SOB. Objective - Vital Signs/Intake and Output Vital Signs (last 24 hours): Temp Pulse Resp BP Pulse Ox 98.2 F 64 15 161/62 H 100 04/03/17 16:15 04/03/17 16:15 04/03/17 16:15 04/03/17 16:15 04/03/17 06:00 Intake and Output: 04/03/17 04/03/17 06:59 18:59 Intake Total 560 Balance 560 - Medications Medications: Current Medications Acetaminophen (Tylenol 325mg Tab) 325 mg PO Q4H PRN PRN Reason: Fever >100.4 F Amlodipine Besylate (Norvasc) 10 mg PO DAILY [facility] Last Admin: 04/03/17 11:44 Dose: Not Given Carvedilol (Coreg) 3.125 mg PO BID [facility] Last Admin: 04/03/17 11:43 Dose: Not Given Cinacalcet (Sensipar) 30 mg PO DAILY [facility] Last Admin: 04/03/17 11:44 Dose: Not Given Clonidine HCl (Catapres) 0.1 mg PO Q8 PRN PRN Reason: SBP 170 OR MORE Donepezil HCl (Aricept) 10 mg PO HS [facility] Last Admin: 04/02/17 21:29 Dose: 10 mg Hydralazine HCl (Apresoline) 100 mg PO Q8 [facility] Last Admin: 04/03/17 05:28 Dose: Not Given Piperacillin Sod/Tazobactam Sod (Zosyn 2.25 Gm In 0.9% 100 Ml) 2.25 gm in 100 mls @ 100 mls/hr IVPB Q6 [facility] PRN Reason: Protocol Stop: 04/07/17 00:01 Last Admin: 04/03/17 13:44 Dose: Not Given Linezolid (Zyvox 600mg/300ml D5w) 600 mg in 300 mls @ 200 mls/hr IVPB Q12 [facility] PRN Reason: Protocol Stop: 04/06/17 22:01 Last Admin: 04/03/17 11:44 Dose: Not Given Insulin Human Regular (Humulin R Med) 0 units SC ACHS [facility] PRN Reason: Protocol Last Admin: 04/03/17 11:43 Dose: Not Given Lactulose (Enulose) 20 gm PO BID [facility] Last Admin: 04/03/17 11:43 Dose: Not Given Pantoprazole Sodium (Protonix Ec Tab) 20 mg PO DAILY [facility] Last Admin: 04/03/17 11:44 Dose: Not Given Pregabalin (Lyrica) 50 mg PO TID [facility] Last Admin: 04/03/17 11:43 Dose: Not Given Risperidone (Risperdal Tab) 1 mg PO HS [facility] PRN Reason: Protocol Sevelamer HCl (Renagel) 800 mg PO TID [facility] Last Admin: 04/03/17 13:44 Dose: Not Given Silver Sulfadiazine (Silvadene 1% 25 Gm) 25 gm TP DAILY [facility] Last Admin: 04/03/17 11:44 Dose: Not Given Valsartan (Diovan) 320 mg PO DAILY [facility] Last Admin: 04/03/17 11:43 Dose: Not Given Vitamin B Complex/Vit C/Folic Acid (Nephro-Yudi) 1 tab PO DAILY [facility] Last Admin: 04/03/17 11:44 Dose: Not Given - Labs Labs: 04/03/17 07:00 04/03/17 07:00 APTT 31.9 Seconds (25.1-36.5) 03/30/17 17:51 - Constitutional Appears: Well, Non-toxic, No Acute Distress - Extremities Exam Additional comments: Vasc: nonpalpable pedal pulses bilateral, +1 pitting edema to lower extremities b/l, TG wnl, CFT < 4 sec to all digits neuro: grossly diminished derm: lower extremity skin appears thin, shiny discolored, nails are elongated, dystrophic x 10, full thickness ulceration on left heel with necrotic eschar, no fluctuance, moderate malodor, no purulence, no drainage, no ascending cellulitis, negative probe to bone, right heel preulcerative lesion with no fluctuance, no purulence no drainage ortho: no pain on palpation to bilateral heels - Neurological Exam Neurological Exam: Alert, Awake, Oriented x3 - Psychiatric Exam Psychiatric exam: Normal Affect, Normal Mood Assessment and Plan - Assessment and Plan (Free Text) Assessment: 76 y/o male seen at bedside for gangrenous heel ulcerations, left greater than right Plan: Patient seen and evaluated with attending, Dr. Quiñones and Dr. Griffith Afebrile, WBC 5.7 WCx reveals growth of proteus, MRSA, enterococcus XR negative for OM Per vascular, s/p angio patient has patent peroneal and PT -Patient should heal well s/p debridement with appropriate blood flow Left foot MRI ordered Patient scheduled for 7:45 left heel wound debridement -Patient to be NPO past mn Sunday Continue local wound care Continue multipodus boots in bed Podiatry will continue to follow patient while in house <Kathy Quiñones - Last Filed: 04/04/17 17:17> Objective - Vital Signs/Intake and Output Vital Signs (last 24 hours): Temp Pulse Resp BP Pulse Ox 97.3 F L 56 L 18 120/60 99 04/04/17 16:00 04/04/17 16:00 04/04/17 16:00 04/04/17 16:00 04/04/17 16:00 Intake and Output: 04/04/17 04/04/17 06:59 18:59 Intake Total 680 Output Total 0 Balance 680 - Medications Medications: Current Medications Acetaminophen (Tylenol 325mg Tab) 325 mg PO Q4H PRN PRN Reason: Fever >100.4 F Amlodipine Besylate (Norvasc) 10 mg PO DAILY [facility] Last Admin: 04/04/17 10:26 Dose: 10 mg Carvedilol (Coreg) 6.25 mg PO BID [facility] Cinacalcet (Sensipar) 30 mg PO DAILY [facility] Last Admin: 04/04/17 10:27 Dose: 30 mg Clonidine HCl (Catapres) 0.1 mg PO Q8 PRN PRN Reason: SBP 170 OR MORE Donepezil HCl (Aricept) 10 mg PO HS [facility] Last Admin: 04/03/17 21:38 Dose: 10 mg Hydralazine HCl (Apresoline) 100 mg PO Q8 [facility] Last Admin: 04/04/17 14:01 Dose: 100 mg Piperacillin Sod/Tazobactam Sod (Zosyn 2.25 Gm In 0.9% 100 Ml) 2.25 gm in 100 mls @ 100 mls/hr IVPB Q6 [facility] PRN Reason: Protocol Stop: 04/07/17 00:01 Last Admin: 04/04/17 12:33 Dose: Not Given Linezolid (Zyvox 600mg/300ml D5w) 600 mg in 300 mls @ 200 mls/hr IVPB Q12 [facility] PRN Reason: Protocol Stop: 04/06/17 22:01 Last Admin: 04/04/17 10:41 Dose: Not Given Insulin Human Regular (Humulin R Med) 0 units SC ACHS [facility] PRN Reason: Protocol Last Admin: 04/04/17 11:42 Dose: Not Given Lactulose (Enulose) 20 gm PO BID [facility] Last Admin: 04/04/17 10:26 Dose: 20 gm Pantoprazole Sodium (Protonix Ec Tab) 20 mg PO DAILY [facility] Last Admin: 04/04/17 10:26 Dose: 20 mg Pregabalin (Lyrica) 50 mg PO TID [facility] Last Admin: 04/04/17 14:01 Dose: 50 mg Risperidone (Risperdal Tab) 1 mg PO HS [facility] PRN Reason: Protocol Sevelamer HCl (Renagel) 800 mg PO TID [facility] Last Admin: 04/04/17 14:01 Dose: 800 mg Silver Sulfadiazine (Silvadene 1% 25 Gm) 25 gm TP DAILY [facility] Last Admin: 04/03/17 11:44 Dose: Not Given Valsartan (Diovan) 320 mg PO DAILY [facility] Last Admin: 04/04/17 10:27 Dose: 320 mg Vitamin B Complex/Vit C/Folic Acid (Nephro-Yudi) 1 tab PO DAILY [facility] Last Admin: 04/04/17 10:27 Dose: 1 tab - Labs Labs: 04/04/17 16:37 04/04/17 16:37 APTT 31.9 Seconds (25.1-36.5) 03/30/17 17:51 Attending/Attestation - Attestation I have personally seen and examined this patient.: Yes I have fully participated in the care of the patient.: Yes I have reviewed all pertinent clinical information, including history, physical exam and plan: Yes
--- NOTE | 2017-04-03 17:27 | VASCULAR ---
PROCEDURE: 1. Abdominal aortogram and bilateral lower extremity runoff with left selective views. 2. Left posterior tibial artery CS I atherectomy and angioplasty 3. Left peroneal artery CS I atherectomy and angioplasty HISTORY: Severe peripheral vascular disease. Left heel ulcer with gangrene. End-stage renal disease. Poor surgical candidate. PHYSICIAN(S): Jed Griffith M.D. TECHNIQUE: The relative risks and indications of the procedure were explained to the patient and his daughter and consent obtained. The patient was placed supine on the arteriogram table and the right groin prepped and draped in the usual sterile fashion. Conscious sedation and monitoring were provided throughout the procedure by a nurse. Via a right common femoral artery approach, a 5 Hungarian sheath was placed in the right groin. Through the sheath and over a guidewire, a 5 Hungarian flush catheter was placed in the abdominal aorta at the level of the renal arteries and a PA DSA abdominal aortogram performed. The catheter was pulled down to the aortic bifurcation and bilateral oblique DSA pelvic arteriograms performed. Overlapping bilateral lower extremity DSA arteriograms were obtained from the inguinal ligaments to the ankles. A 0.035 angled Glidewire was advanced over the bifurcation and placed in the distal left SFA. A 6 Hungarian 65 cm destination sheath was placed in the mid to distal left SFA. Heparin 6500 units IV and nitroglycerin in 250 mcg aliquots were given. With some difficulty, the calcified occlusion of the mid left posterior tibial artery was crossed with various 0.014, 0.018, and 0.035 guidewires. It was difficult to make micro balloons passed through the calcified areas. Subsequently, CS I atherectomy of the mid left posterior tibial artery was performed with a 1.25 mm micro ashish. Next long segment angioplasty of the left posterior tibial artery was performed with a tapered 3.0-2.5 mm x 210mm angioplasty balloon. An excellent angiographic result was obtained. Next the mid left peroneal artery occlusion was crossed with various 0.014 and 0.018 guidewires. CS I atherectomy of the proximal to mid left peroneal artery was performed with a 1.25 mm micro ashish. The proximal to mid left peroneal artery was dilated with 3.0 x 150 mm angioplasty balloon. An excellent angiographic result was obtained. The sheath was removed hemostasis obtained with a Perclose device. The patient tolerated the procedure well. FINDINGS: There are single renal arteries bilaterally. They are patent proximally. The renal arteries are atretic, consistent with the patient's history for dialysis.. The infrarenal abdominal aorta is calcified but widely patent. The aortic bifurcation is calcified and patent. The common and external iliac arteries are patent. The internal iliac arteries are patent. Right lower extremity: The right common femoral artery is patent. The right profunda femoral artery is patent. The right superficial femoral artery is widely patent and calcified without radiographically significant stenosis. The right popliteal artery is patent. There is severe right tibial occlusive disease. The right anterior tibial and posterior tibial arteries occlude proximally. The right peroneal artery is the predominant supply to the ankle with severe disease distally. There is reconstitution of the distal right posterior tibial artery.. Left lower extremity: Left common femoral artery is patent. The left profunda femoral artery is patent. The left superficial femoral artery is calcified and patent without radiographically significant stenosis.. The left popliteal artery is patent and continuous. Once again there is severe left tibial occlusive disease. The left anterior tibial artery occludes proximally. There is a 10 cm occlusion of the proximal left peroneal artery. There is an 11 cm occlusion of the mid left posterior tibial artery. There is moderate to severe left pedal occlusive disease. Plantar arch is opacified. The left dorsalis pedis artery is atretic. IMPRESSION: 1.Successful left posterior tibial artery CS I atherectomy and angioplasty. 2. Successful left peroneal artery CS I atherectomy and angioplasty. 3. 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
--- NOTE | 2017-04-03 18:29 | CP.PCM.PN ---
Subjective - Date & Time of Evaluation Date of Evaluation: 04/03/17 Time of Evaluation: 12:30 - Subjective Subjective: Reports feeling well; seen before going for lower ext angiogram; Objective - Vital Signs/Intake and Output Vital Signs (last 24 hours): Temp Pulse Resp BP Pulse Ox 98.2 F 66 15 148/50 L 100 04/03/17 17:45 04/03/17 17:45 04/03/17 17:45 04/03/17 17:45 04/03/17 06:00 Intake and Output: 04/03/17 04/03/17 06:59 18:59 Intake Total 560 Balance 560 - Medications Medications: Current Medications Acetaminophen (Tylenol 325mg Tab) 325 mg PO Q4H PRN PRN Reason: Fever >100.4 F Amlodipine Besylate (Norvasc) 10 mg PO DAILY [facility] Last Admin: 04/03/17 11:44 Dose: Not Given Carvedilol (Coreg) 3.125 mg PO BID [facility] Last Admin: 04/03/17 11:43 Dose: Not Given Cinacalcet (Sensipar) 30 mg PO DAILY [facility] Last Admin: 04/03/17 11:44 Dose: Not Given Clonidine HCl (Catapres) 0.1 mg PO Q8 PRN PRN Reason: SBP 170 OR MORE Donepezil HCl (Aricept) 10 mg PO HS [facility] Last Admin: 04/02/17 21:29 Dose: 10 mg Hydralazine HCl (Apresoline) 100 mg PO Q8 [facility] Last Admin: 04/03/17 05:28 Dose: Not Given Piperacillin Sod/Tazobactam Sod (Zosyn 2.25 Gm In 0.9% 100 Ml) 2.25 gm in 100 mls @ 100 mls/hr IVPB Q6 [facility] PRN Reason: Protocol Stop: 04/07/17 00:01 Last Admin: 04/03/17 13:44 Dose: Not Given Linezolid (Zyvox 600mg/300ml D5w) 600 mg in 300 mls @ 200 mls/hr IVPB Q12 [facility] PRN Reason: Protocol Stop: 04/06/17 22:01 Last Admin: 04/03/17 11:44 Dose: Not Given Insulin Human Regular (Humulin R Med) 0 units SC ACHS [facility] PRN Reason: Protocol Last Admin: 04/03/17 11:43 Dose: Not Given Lactulose (Enulose) 20 gm PO BID [facility] Last Admin: 04/03/17 11:43 Dose: Not Given Pantoprazole Sodium (Protonix Ec Tab) 20 mg PO DAILY [facility] Last Admin: 04/03/17 11:44 Dose: Not Given Pregabalin (Lyrica) 50 mg PO TID [facility] Last Admin: 04/03/17 11:43 Dose: Not Given Risperidone (Risperdal Tab) 1 mg PO HS [facility] PRN Reason: Protocol Sevelamer HCl (Renagel) 800 mg PO TID [facility] Last Admin: 04/03/17 13:44 Dose: Not Given Silver Sulfadiazine (Silvadene 1% 25 Gm) 25 gm TP DAILY [facility] Last Admin: 04/03/17 11:44 Dose: Not Given Valsartan (Diovan) 320 mg PO DAILY [facility] Last Admin: 04/03/17 11:43 Dose: Not Given Vitamin B Complex/Vit C/Folic Acid (Nephro-Yudi) 1 tab PO DAILY [facility] Last Admin: 04/03/17 11:44 Dose: Not Given - Labs Labs: 04/03/17 07:00 04/03/17 07:00 APTT 31.9 Seconds (25.1-36.5) 03/30/17 17:51 - Constitutional Appears: Non-toxic, No Acute Distress - Head Exam Head Exam: NORMAL INSPECTION - Eye Exam Eye Exam: Normal appearance. absent: Scleral icterus - ENT Exam ENT Exam: Mucous Membranes Moist - Respiratory Exam Respiratory Exam: Clear to Ausculation Bilateral. absent: Respiratory Distress - Cardiovascular Exam Cardiovascular Exam: REGULAR RHYTHM, +S1, +S2 - GI/Abdominal Exam GI & Abdominal Exam: Soft. absent: Distended - Extremities Exam Additional comments: no leg edema - Neurological Exam Neurological Exam: Alert, Awake - Psychiatric Exam Psychiatric exam: absent: Agitated - Skin Skin Exam: Warm. absent: Cyanosis Assessment and Plan (1) ESRD (end stage renal disease) Assessment & Plan: Stable electrolyte and volume status; s/p HD session today, next for per routine; Status: Acute (2) Heel ulceration Assessment & Plan: Going for angiogram to assess vasculature; on linezolid (no renal dose reduction needed) and zosyn (renally dosed); will f/u need for outpatient abx on HD; Status: Acute (3) Anemia in ESRD (end-stage renal disease) Assessment & Plan: Hgb below goal; giving IV iron with HD; on long acting EPO formulation (mircera 200 mcg every 2 weeks); Status: Acute (4) Chronic kidney disease-mineral and bone disorder Assessment & Plan: Hypercalcemia (corrected for albumin) improved, continue sensipar 30 mg daily; continue sevelamer 1 tab w/ meals; Status: Acute (5) Hypertensive CKD, ESRD on dialysis Assessment & Plan: BP controlled, continue current meds; UF on HD; Status: Acute
--- NOTE | 2017-04-03 18:44 | PN ---
DATE: 04/03/2017 SUBJECTIVE: The patient is in bed, in no acute distress, is seen early this morning at 363. PHYSICAL EXAMINATION: VITAL SIGNS: Temperature of 98, blood pressure is 130/60, respiratory rate of 16. HEENT: Examination of HEENT is unremarkable. NECK: Supple. LUNGS: Have decreased breath sounds. HEART: Normal S1, S2. ABDOMEN: Soft. LABORATORY DATA: Reveals a white count of 5.7, hemoglobin of 8. Chemistries reveals a BUN of 40, creatinine of 5.7. Microbiology is noted. ASSESSMENT AND PLAN: A 76-year-old male with bilateral gangrenous heel ulcers and possible hemochromatosis and diabetic, hypertension, dyslipidemia, end stage renal disease, renal cancer status post partial nephrectomy, end-stage renal disease, on hemodialysis and on Zyvox and Zosyn with MRSA Proteus and Enterococcus faecalis from the right foot culture. The Proteus is pansensitive. The MRSA is MARIELA of 1 to vancomycin. The Enterococcus faecalis sensitive to ampicillin and review of orders confirms Zyvox and the Zosyn to be active. Overall prognosis poor. Ibrahima Lara MD
[2017-04-04] MEDS: Piperacillin/Tazobact 2.25gm 2.25 GM/100 ML BAG IVPB SCH ×5 (02:16→23:38)
[2017-04-04] MEDS: Insulin Reg-MEDIUM-Coverage SC SCH ×4 (07:32→22:20)
--- NOTE | 2017-04-04 09:21 | CP.PCM.PN ---
Subjective - Date & Time of Evaluation Date of Evaluation: 04/04/17 Time of Evaluation: : - Subjective Subjective: Podiatry Progress Note - Dr. Quiñones 76 year old male patient seen and evaluated at bedside for non-healing wound to left foot. Patient seen resting comfortably with offloading boots on bilateral lower extremity. Patient hemodynamically stable and NAD. Denies any acute events overnight; no complaints after procedure with Dr. Griffith yesterday. Patient is aware he is scheduled for surgery tomorrow morning. Denies N/V/F/D/C/ SOB. Objective - Vital Signs/Intake and Output Vital Signs (last 24 hours): Temp Pulse Resp BP Pulse Ox 97.7 F 67 19 170/58 H 100 04/04/17 06:00 04/04/17 06:00 04/04/17 06:00 04/04/17 06:00 04/03/17 06:00 Intake and Output: 04/04/17 04/04/17 06:59 18:59 Intake Total 680 Output Total 0 Balance 680 - Medications Medications: Current Medications Acetaminophen (Tylenol 325mg Tab) 325 mg PO Q4H PRN PRN Reason: Fever >100.4 F Amlodipine Besylate (Norvasc) 10 mg PO DAILY [facility] Last Admin: 04/03/17 11:44 Dose: Not Given Carvedilol (Coreg) 3.125 mg PO BID [facility] Last Admin: 04/03/17 18:39 Dose: Not Given Cinacalcet (Sensipar) 30 mg PO DAILY [facility] Last Admin: 04/03/17 11:44 Dose: Not Given Clonidine HCl (Catapres) 0.1 mg PO Q8 PRN PRN Reason: SBP 170 OR MORE Donepezil HCl (Aricept) 10 mg PO HS [facility] Last Admin: 04/03/17 21:38 Dose: 10 mg Hydralazine HCl (Apresoline) 100 mg PO Q8 [facility] Last Admin: 04/04/17 05:55 Dose: 100 mg Piperacillin Sod/Tazobactam Sod (Zosyn 2.25 Gm In 0.9% 100 Ml) 2.25 gm in 100 mls @ 100 mls/hr IVPB Q6 [facility] PRN Reason: Protocol Stop: 04/07/17 00:01 Last Admin: 04/04/17 05:58 Dose: 100 mls/hr Linezolid (Zyvox 600mg/300ml D5w) 600 mg in 300 mls @ 200 mls/hr IVPB Q12 [facility] PRN Reason: Protocol Stop: 04/06/17 22:01 Last Admin: 04/03/17 21:38 Dose: 200 mls/hr Insulin Human Regular (Humulin R Med) 0 units SC ACHS [facility] PRN Reason: Protocol Last Admin: 04/04/17 07:32 Dose: Not Given Lactulose (Enulose) 20 gm PO BID [facility] Last Admin: 04/03/17 18:39 Dose: Not Given Pantoprazole Sodium (Protonix Ec Tab) 20 mg PO DAILY [facility] Last Admin: 04/03/17 11:44 Dose: Not Given Pregabalin (Lyrica) 50 mg PO TID [facility] Last Admin: 04/03/17 18:39 Dose: Not Given Risperidone (Risperdal Tab) 1 mg PO HS [facility] PRN Reason: Protocol Sevelamer HCl (Renagel) 800 mg PO TID [facility] Last Admin: 04/03/17 18:39 Dose: Not Given Silver Sulfadiazine (Silvadene 1% 25 Gm) 25 gm TP DAILY [facility] Last Admin: 04/03/17 11:44 Dose: Not Given Valsartan (Diovan) 320 mg PO DAILY [facility] Last Admin: 04/03/17 11:43 Dose: Not Given Vitamin B Complex/Vit C/Folic Acid (Nephro-Yudi) 1 tab PO DAILY [facility] Last Admin: 04/03/17 11:44 Dose: Not Given - Labs Labs: 04/03/17 07:00 04/03/17 07:00 APTT 31.9 Seconds (25.1-36.5) 03/30/17 17:51 - Constitutional Appears: Well, Non-toxic, No Acute Distress - Extremities Exam Additional comments: Offloading boots present to bilateral lower extremity Dressing to left foot appears clean/dry/intact Vasc: nonpalpable pedal pulses bilateral, +1 pitting edema to lower extremities b/l, TG wnl, CFT < 4 sec to all digits Neuro: grossly diminished Derm: lower extremity skin appears thin, shiny discolored, nails are elongated, dystrophic x 10, full thickness ulceration on left heel with necrotic eschar, no fluctuance, moderate malodor, no purulence, no drainage, no ascending cellulitis, negative probe to bone, right heel preulcerative lesion with no fluctuance, no purulence no drainage Ortho: no pain on palpation to bilateral heels - Neurological Exam Neurological Exam: Alert, Awake - Psychiatric Exam Psychiatric exam: Normal Affect, Normal Mood Assessment and Plan - Assessment and Plan (Free Text) Assessment: 76 y/o male seen at bedside for gangrenous heel ulceration to left foot Plan: Patient seen and evaluated with attending, Dr. Quiñones Afebrile, WBC 5.7 yesterday 04/03/17, ESR 126 WCx reveals growth of proteus, MRSA, enterococcus XR negative for OM Per vascular, s/p angio patient has patent peroneal and PT -Patient should heal well s/p debridement with appropriate blood flow f/u Left foot MRI Patient scheduled for 7:45 left heel wound debridement -Patient to be NPO past mn Sunday Continue local wound care Continue multipodus boots in bed Podiatry will continue to follow patient while in house
--- NOTE | 2017-04-04 09:33 | PN ---
DATE: 04/03/2017 SUBJECTIVE: The patient came in, the patient status post hemodialysis and angiogram of his lower extremity plus atherectomy. He is doing well and stable. No respiratory distress. No chest pain. The patient has baseline dementia, is confused and disoriented, but there is no physical distress. He moves all extremities. PHYSICAL EXAMINATION: VITAL SIGNS: On 04/03/2017 is as follows: Temperature 98.2, heart rate 61, blood pressure 159/60, and respirations 15. HEAD AND NECK: Normal. No JVD. No thyromegaly. CHEST: Clear with good air entry. CARDIAC: First sound and second sound normal. ABDOMEN: Soft and nontender. EXTREMITIES: There is no edema. Left heel, there is a large necrotic area. NEUROLOGIC: He moves all extremities except he has dementia with disorientation. LABORATORY DATA: White count 5.7, hemoglobin 8.8, hematocrit 27.4, and platelets 81. Chemistry: Sodium 137, potassium 3.7, chloride 103, bicarb 24, BUN 40, and creatinine 5.7. Liver function test is normal. His blood sugar is reasonable at 120. The patient also had angiogram of lower extremity there is peripheral vascular disease of the tibial arteries of both legs, and also the patient had hemodialysis and they had a venous access in the upper extremity. IMPRESSION AND PLAN: 1. Left foot heel area necrosis, need debridement versus amputations depending on the patient's condition and wound area. The patient is status post revascularization of lower extremities, which could help healing of the left lower extremity, probably debridement maybe better, it depends up to Podiatry. 2. Hypertension. Continue current treatment. 3. Chronic renal failure, anemia, diabetes, peripheral vascular disease, and dementia. Plan, continue current therapy. We will follow up clinically. 4. The patient has history of renal mass, nephrectomy, history of chronic hepatitis C, not a candidate for treatment. At this time, we will continue current therapy. The patient is being seen by group controller. Continue IV antibiotics, Zosyn, and Zyvox. The patient seems stable with insulin coverage. Blood pressure medications, we will continue current medications. We will monitor his blood pressure. If needed, we will probably give alpha-blockers, if blood pressure continue to be elevated. At this time, seems stable. Continue current therapy, and we will resume antiplatelet therapy after decision of surgery. Continue current therapy. Barber Aguirre MD
--- NOTE | 2017-04-04 09:56 | CP.PCM.PN ---
<Carmel Perez - Last Filed: 04/04/17 14:16> Subjective - Date & Time of Evaluation Date of Evaluation: 04/04/17 Time of Evaluation: 07:05 - Subjective Subjective: Heme/onc progress note for Dr Jackson's service Patient in no acute distress. As per nurse patient was agitated and pulled out his picc line. Patient is awake and alert, waxing and waning mentation. Denies cp, sob, n&v or diarrhea. Afebrile overnight. Objective - Vital Signs/Intake and Output Vital Signs (last 24 hours): Temp Pulse Resp BP Pulse Ox 97.7 F 67 19 170/58 H 100 04/04/17 06:00 04/04/17 06:00 04/04/17 06:00 04/04/17 06:00 04/03/17 06:00 Intake and Output: 04/04/17 04/04/17 06:59 18:59 Intake Total 680 Output Total 0 Balance 680 - Medications Medications: Current Medications Acetaminophen (Tylenol 325mg Tab) 325 mg PO Q4H PRN PRN Reason: Fever >100.4 F Amlodipine Besylate (Norvasc) 10 mg PO DAILY [facility] Last Admin: 04/03/17 11:44 Dose: Not Given Carvedilol (Coreg) 3.125 mg PO BID [facility] Last Admin: 04/03/17 18:39 Dose: Not Given Cinacalcet (Sensipar) 30 mg PO DAILY [facility] Last Admin: 04/03/17 11:44 Dose: Not Given Clonidine HCl (Catapres) 0.1 mg PO Q8 PRN PRN Reason: SBP 170 OR MORE Donepezil HCl (Aricept) 10 mg PO HS [facility] Last Admin: 04/03/17 21:38 Dose: 10 mg Hydralazine HCl (Apresoline) 100 mg PO Q8 [facility] Last Admin: 04/04/17 05:55 Dose: 100 mg Piperacillin Sod/Tazobactam Sod (Zosyn 2.25 Gm In 0.9% 100 Ml) 2.25 gm in 100 mls @ 100 mls/hr IVPB Q6 [facility] PRN Reason: Protocol Stop: 04/07/17 00:01 Last Admin: 04/04/17 05:58 Dose: 100 mls/hr Linezolid (Zyvox 600mg/300ml D5w) 600 mg in 300 mls @ 200 mls/hr IVPB Q12 [facility] PRN Reason: Protocol Stop: 04/06/17 22:01 Last Admin: 04/03/17 21:38 Dose: 200 mls/hr Insulin Human Regular (Humulin R Med) 0 units SC ACHS [facility] PRN Reason: Protocol Last Admin: 04/04/17 07:32 Dose: Not Given Lactulose (Enulose) 20 gm PO BID [facility] Last Admin: 04/03/17 18:39 Dose: Not Given Pantoprazole Sodium (Protonix Ec Tab) 20 mg PO DAILY [facility] Last Admin: 04/03/17 11:44 Dose: Not Given Pregabalin (Lyrica) 50 mg PO TID [facility] Last Admin: 04/03/17 18:39 Dose: Not Given Risperidone (Risperdal Tab) 1 mg PO HS [facility] PRN Reason: Protocol Sevelamer HCl (Renagel) 800 mg PO TID [facility] Last Admin: 04/03/17 18:39 Dose: Not Given Silver Sulfadiazine (Silvadene 1% 25 Gm) 25 gm TP DAILY [facility] Last Admin: 04/03/17 11:44 Dose: Not Given Valsartan (Diovan) 320 mg PO DAILY [facility] Last Admin: 04/03/17 11:43 Dose: Not Given Vitamin B Complex/Vit C/Folic Acid (Nephro-Yudi) 1 tab PO DAILY [facility] Last Admin: 04/03/17 11:44 Dose: Not Given - Labs Labs: 04/03/17 07:00 04/03/17 07:00 APTT 31.9 Seconds (25.1-36.5) 03/30/17 17:51 - Constitutional Appears: No Acute Distress, Chronically Ill - Head Exam Head Exam: ATRAUMATIC, NORMAL INSPECTION, NORMOCEPHALIC - Eye Exam Eye Exam: EOMI, Normal appearance - ENT Exam ENT Exam: Mucous Membranes Moist - Neck Exam Neck Exam: Normal Inspection - Respiratory Exam Respiratory Exam: Clear to Ausculation Bilateral, NORMAL BREATHING PATTERN. absent: Rales, Rhonchi, Wheezes, Respiratory Distress, Stridor - Cardiovascular Exam Cardiovascular Exam: REGULAR RHYTHM, +S1, +S2 - GI/Abdominal Exam GI & Abdominal Exam: Soft, Normal Bowel Sounds. absent: Distended, Firm, Guarding, Rigid, Tenderness - Extremities Exam Extremities Exam: Tenderness. absent: Pedal Edema Additional comments: Left foot with clean dressing. Unable to palpate dorsalis pedis and posterior tibial pulse fei. - Neurological Exam Neurological Exam: Alert, Awake Additional comments: Waxing and waning mentation. - Psychiatric Exam Psychiatric exam: Normal Affect, Normal Mood - Skin Skin Exam: Dry, Warm Assessment and Plan - Assessment and Plan (Free Text) Assessment: Mr Cabral is 76 y/o with multiple comorbidities from intermediate whom presented to [facility] with diabetic foot, being treated for bilateral gangrenous heels, with wound cultures from left heel currently growing multiple organisms, ESRD on HD, h/o possible renal cell carcinoma, anemia of chronic disease, thrombocytopenia. Dr Jackson is consulted for anemia and thrombocytopenia. 1) Anemia is likely due to ESRD, patient is on high dose epo as outpatient 2) Thrombocytopenia r/o HIT 3) H/o chronic hep B 4) Renal cell carcinoma- spoke to patient's daughter, Misti at [phone] on 04/03/17 @1210, states she doesn't want patient to undergo surgery due to dementia and all the comorbidities. 5) Fei heel ulcerations with PVD. Plan: Pending HIT antibodies test. Continue to hold heparin sc and asa. platelet 54, will obtain manual platelet count. H/H improved. Patient is being followed by ID, podiatry, and IR for PVD and wound infection. Medical management as per primary. Patient seen, examined and case discussed with Dr Jackson. <Chiquita Jackson P - Last Filed: 04/07/17 23:12> Objective - Vital Signs/Intake and Output Vital Signs (last 24 hours): Temp Pulse Resp BP Pulse Ox 97.7 F 63 18 156/72 H 99 04/07/17 07:30 04/07/17 17:50 04/07/17 07:30 04/07/17 17:50 04/07/17 07:30 Intake and Output: 04/07/17 04/08/17 18:59 06:59 Intake Total 360 Balance 360 - Medications Medications: Current Medications Acetaminophen (Tylenol 325mg Tab) 325 mg PO Q4H PRN PRN Reason: Fever >100.4 F Acetaminophen (Tylenol 325mg Tab) 650 mg PO Q6H PRN PRN Reason: Pain, Mild (1-3) Amlodipine Besylate (Norvasc) 10 mg PO DAILY [facility] Last Admin: 04/07/17 17:50 Dose: 10 mg Aspirin (Ecotrin) 81 mg PO DAILY [facility] Last Admin: 04/07/17 11:18 Dose: 81 mg Carvedilol (Coreg) 6.25 mg PO BID [facility] Last Admin: 04/07/17 17:50 Dose: 6.25 mg Cinacalcet (Sensipar) 30 mg PO DAILY [facility] Last Admin: 04/07/17 09:04 Dose: 30 mg Donepezil HCl (Aricept) 10 mg PO HS [facility] Last Admin: 04/07/17 21:23 Dose: 10 mg Hydralazine HCl (Apresoline) 100 mg PO Q8 [facility] Last Admin: 04/05/17 06:32 Dose: Not Given Insulin Human Regular (Humulin R Med) 0 units SC [facility] PRN Reason: Protocol Last Admin: 04/07/17 18:02 Dose: Not Given Lactic Acid (Lac-Hydrin 12% Cream (140 G)) 0 ea TOP BID [facility] Last Admin: 04/07/17 10:05 Dose: 1 applic Lactulose (Enulose) 20 gm PO BID [facility] Last Admin: 04/06/17 12:59 Dose: Not Given Pantoprazole Sodium (Protonix Ec Tab) 20 mg PO DAILY [facility] Last Admin: 04/07/17 09:04 Dose: 20 mg Pregabalin (Lyrica) 50 mg PO TID [facility] Last Admin: 04/07/17 17:49 Dose: 50 mg Risperidone (Risperdal Tab) 1 mg PO HS [facility] PRN Reason: Protocol Last Admin: 04/07/17 21:23 Dose: 1 mg Sevelamer HCl (Renagel) 800 mg PO TID [facility] Last Admin: 04/07/17 17:49 Dose: 800 mg Silver Sulfadiazine (Silvadene 1% 25 Gm) 25 gm TP DAILY [facility] Last Admin: 04/07/17 10:00 Dose: 25 gm Valsartan (Diovan) 320 mg PO DAILY [facility] Last Admin: 04/05/17 10:45 Dose: Not Given Vitamin B Complex/Vit C/Folic Acid (Nephro-Yudi) 1 tab PO DAILY [facility] Last Admin: 04/07/17 09:04 Dose: 1 tab - Labs Labs: 04/07/17 12:35 04/07/17 12:35 APTT 31.9 Seconds (25.1-36.5) 03/30/17 17:51 Attending/Attestation - Attestation I have personally seen and examined this patient.: Yes I have fully participated in the care of the patient.: Yes I have reviewed all pertinent clinical information, including history, physical exam and plan: Yes
[2017-04-04 10:17] LABS: HEMATOCRIT 30.9 % (42.0-52.0); MEAN CELL VOLUME 85.6 fl (80.0-105.0); MEAN CORPUSCULAR HEMOGLOBIN 27.7 pg (25.0-35.0); MEAN CORPUSCULAR HGB CONC 32.4 g/dl (31.0-37.0); PLATELET COUNT 54 10^3/uL (120.0-450.0); RED CELL DISTRIBUTION WIDTH 16.5 % (11.5-14.5); WHITE BLOOD COUNT 6.9 10^3/ul (4.5-11.0)
[2017-04-04] MEDS: Pantoprazole 20 mg EC Tab PO SCH (10:26)
[2017-04-04] MEDS: Multivitamin Vitamin B Complex (Nephro-Vite) Tab PO SCH (10:27)
[2017-04-04] MEDS: Linezolid 600 mg in D5W 300 ml 600 MG/300 ML BAG IVPB SCH ×2 (10:41→21:55)
[2017-04-04 11:14] LABS: POTASSIUM 3.7 mmol/L (3.6-5.0)
[2017-04-04 12:43] LABS: ALB/GLOB RATIO 0.7 (1.1-1.8); BILIRUBIN,TOTAL 0.4 mg/dL (0.2-1.3); CALCIUM 10.1 mg/dL (8.4-10.5); TOTAL PROTEIN 7.4 g/dL (5.8-8.3)
--- NOTE | 2017-04-04 12:59 | PN ---
DATE: 04/04/2017 REASON FOR CONSULTATION AND FOLLOWUP: Preoperative evaluation and stratification for foot gangrene and possible amputation. SUBJECTIVE: The patient denies any chest pain, shortness of breath or any palpitation. Had dialysis yesterday. OBJECTIVE: GENERAL: Not in apparent distress, but appears to be confused. VITAL SIGNS: As follows: Temperature afebrile, heart rate 65, blood pressure 151/45. HEENT: PERRLA. Extraocular muscles intact. NECK: Supple. No carotid bruit or thyromegaly. CHEST: Clear to auscultation. HEART: S1, S2 regular. ABDOMEN: Soft. EXTREMITIES: Clubbing and cyanosis negative. LABORATORY DATA: Blood workup as follows: WBC 3.8, hemoglobin 10, hematocrit 30.9, platelet count 54. Chemistry shows sodium 130, potassium 3.7, chloride 103, carbon dioxide 27, anion gap of 14, BUN of 40, creatinine of 5.7. IMPRESSION: 1. Peripheral arterial disease. 2. Gangrene, for possible amputation. 3. History of end-stage renal disease, on dialysis. Admit for the debridement. Therefore, the patient's last echo showed ejection fraction of 70%. 4. Hypertension. 5. Hyperlipidemia. 6. Diastolic dysfunction. 7. Peripheral arterial disease, requiring amputation. RECOMMENDATIONS: No absolute contraindication for wound debridement. The patient is okay to go for surgery. Continue Coreg. The patient's blood pressure is elevated with increased Coreg of 6.25 mg b.i.d. We will follow with you. Thank you Dr. Aguirre for providing us the opportunity in taking care of the patient. Ulysses Flaherty MD
[2017-04-04 16:41] LABS: BASO # 0.01 K/mm3 (0.0-2.0); BASO % 0.2 % (0.0-3.0); EOS # 0.2 (0.0-0.7); EOS % 3.1 % (1.5-5.0); GRAN # 3.99 (1.4-6.5); GRAN % 76.1 % (50.0-68.0); HEMATOCRIT 28.1 % (42.0-52.0); LYMPH # 0.7 (1.2-3.4); MEAN CELL VOLUME 84.9 fl (80.0-105.0); MEAN CORPUSCULAR HEMOGLOBIN 27.5 pg (25.0-35.0); MEAN CORPUSCULAR HGB CONC 32.4 g/dl (31.0-37.0); MONO # 0.4 (0.1-0.6); MONO % 7.6 % (1.0-6.0); PLATELET COUNT 64 10^3/uL (120.0-450.0); RED CELL DISTRIBUTION WIDTH 16.4 % (11.5-14.5); WHITE BLOOD COUNT 5.2 10^3/ul (4.5-11.0)
[2017-04-04 17:06] LABS: ALB/GLOB RATIO 0.7 (1.1-1.8); BILIRUBIN,TOTAL 0.3 mg/dL (0.2-1.3); CALCIUM 9.7 mg/dL (8.4-10.5); MAGNESIUM 2.1 mg/dL (1.7-2.2); PHOSPHOROUS 4.9 mg/dL (2.5-4.5); POTASSIUM 3.5 mmol/L (3.6-5.0); TOTAL PROTEIN 6.7 g/dL (5.8-8.3)
--- NOTE | 2017-04-04 18:03 | PN ---
DATE: 04/04/2017 SUBJECTIVE: The patient is in bed, in no acute distress. The patient was seen early this morning time and had no fevers, no chills. Tolerating medications. PHYSICAL EXAMINATION: VITAL SIGNS: Temperature is 98, blood pressure is 150/70, respiratory rate 16. HEENT: Unremarkable. NECK: Supple. LUNGS: Decreased breath sounds. HEART: Normal S1 and S2. ABDOMEN: Soft, nontender. LABORATORY EXAMINATION: Reveals the patient's white count of 6.9 with a sed rate of 126, and chemistries are noted. ASSESSMENT AND PLAN: He is a 76-year-old male with bilateral gangrenous heel ulcers, possible hemochromatosis, diabetic, hypertension, dyslipidemia, renal cancer, status post partial nephrectomy, end-stage renal disease on hemodialysis, on Zyvox and Zosyn with Proteus, methicillin-resistant Staphylococcus aureus, and Enterococcus faecalis. Overall prognosis is poor. We renewed his Zosyn, and we will follow closely with you. We also renewed Zyvox. Ibrahima Lara MD
--- NOTE | 2017-04-04 18:22 | CARD ---
APPROVED REPORT EXAM: Two-dimensional and M-mode echocardiogram with Doppler and color Doppler. INDICATION Pre-Op 2D DIMENSIONS Left Atrium (2D)4.4 (1.6-4.0cm)IVSd0.9 (0.7-1.1cm) LVDd4.6 (3.9-5.9cm)PWd1.1 (0.7-1.1cm) LVDs2.7 (2.5-4.0cm)FS (%) 40.9 % LVEF (%)71.7 (>50%) M-Mode DIMENSIONS Aortic Root3.40 (2.2-3.7cm)Aortic Cusp Exc.1.40 (1.5-2.0cm) Aortic Valve AoV Peak Fptakjnz805.0cm/Scout Peak GR.9mmHg Mitral Valve MV E Krxvaxny56.1cm/sMV A Smdsjthk04.5cm/sE/A ratio0.9 TDI Lateral E' Peak V10.30cm/sMedial E' Peak V7.80cm/sE/Lateral E'6.4 E/Medial E'8.5 Pulmonary Valve PV Peak Vyaoccpo00.5cm/sPV Peak Grad.2mmHg Tricuspid Valve TR Peak Nfticaaa981fh/sRAP KLDTNNYF86rrBmNU Peak Gr.27mmHg [id number] LEFT VENTRICLE The left ventricle is normal size. There is normal left ventricular wall thickness. The left ventricular function is normal.EF-65% There is normal LV segmental wall motion. Transmitral Doppler flow pattern is Grade III-reversible restrictive diastolic dysfunction. No left ventricle thrombus noted on this study. There is no ventricular septal defect visualized. There is no left ventricular aneurysm. There is no mass noted in the left ventricle. RIGHT VENTRICLE The right ventricle is normal size. There is normal right ventricular wall thickness. The right ventricular systolic function is normal. ATRIA The left atrium is mildly dilated. The right atrium is borderline dilated. The interatrial septum is intact with no evidence for an atrial septal defect. AORTIC VALVE The aortic valve is calcified but opens well. The aortic valve is moderately to severely sclerotic. No aortic regurgitation is present. Aortic Sclerosis Vs Mild There is no aortic valvular vegetation. MITRAL VALVE The mitral valve is thickened but opens well. Mitral annular calcification is mild. Mitral regurgitation is trace. There is no mitral valve stenosis. There is no evidence of mitral valve prolapse. TRICUSPID VALVE The tricuspid valve leaflets are thickened , but open well. There is trace tricuspid regurgitation.RVSP-37 mmof hg. There is no tricuspid valve stenosis. There is no tricuspid valve prolapse or vegetation. PULMONIC VALVE The pulmonic valve is not well visualized. GREAT VESSELS The aortic root is normal in size. The ascending aorta is normal in size. The pulmonary artery is normal. The IVC is normal in size and collapses >50% with inspiration. PERICARDIAL EFFUSION There is no pleural effusion. There is no pericardial effusion. <Conclusion> The left ventricle is normal size. There is normal left ventricular wall thickness. The left ventricular function is normal.EF-65% Mitral regurgitation is trace. There is trace tricuspid regurgitation.RVSP-37 mmof hg.
--- NOTE | 2017-04-04 21:46 | CP.PCM.PN ---
Subjective - Date & Time of Evaluation Date of Evaluation: 04/04/17 Time of Evaluation: 18:30 - Subjective Subjective: Patient tolerating diet (with assistance); pulled out his mid-line catheter earlier and also refused labs (before later agreeing); Objective - Vital Signs/Intake and Output Vital Signs (last 24 hours): Temp Pulse Resp BP Pulse Ox 97.3 F L 56 L 18 120/60 99 04/04/17 16:00 04/04/17 16:00 04/04/17 16:00 04/04/17 16:00 04/04/17 16:00 - Medications Medications: Current Medications Acetaminophen (Tylenol 325mg Tab) 325 mg PO Q4H PRN PRN Reason: Fever >100.4 F Amlodipine Besylate (Norvasc) 10 mg PO DAILY [facility] Last Admin: 04/04/17 10:26 Dose: 10 mg Carvedilol (Coreg) 6.25 mg PO BID [facility] Last Admin: 04/04/17 18:11 Dose: Not Given Cinacalcet (Sensipar) 30 mg PO DAILY [facility] Last Admin: 04/04/17 10:27 Dose: 30 mg Clonidine HCl (Catapres) 0.1 mg PO Q8 PRN PRN Reason: SBP 170 OR MORE Donepezil HCl (Aricept) 10 mg PO HS [facility] Last Admin: 04/03/17 21:38 Dose: 10 mg Hydralazine HCl (Apresoline) 100 mg PO Q8 [facility] Last Admin: 04/04/17 14:01 Dose: 100 mg Piperacillin Sod/Tazobactam Sod (Zosyn 2.25 Gm In 0.9% 100 Ml) 2.25 gm in 100 mls @ 100 mls/hr IVPB Q6 [facility] PRN Reason: Protocol Stop: 04/07/17 00:01 Last Admin: 04/04/17 18:10 Dose: 100 mls/hr Linezolid (Zyvox 600mg/300ml D5w) 600 mg in 300 mls @ 200 mls/hr IVPB Q12 [facility] PRN Reason: Protocol Stop: 04/06/17 22:01 Last Admin: 04/04/17 10:41 Dose: Not Given Insulin Human Regular (Humulin R Med) 0 units SC ACHS [facility] PRN Reason: Protocol Last Admin: 12/06/17 17:27 Dose: Not Given Lactulose (Enulose) 20 gm PO BID [facility] Last Admin: 04/04/17 18:11 Dose: 20 gm Pantoprazole Sodium (Protonix Ec Tab) 20 mg PO DAILY [facility] Last Admin: 04/04/17 10:26 Dose: 20 mg Pregabalin (Lyrica) 50 mg PO TID [facility] Last Admin: 04/04/17 18:11 Dose: 50 mg Risperidone (Risperdal Tab) 1 mg PO HS [facility] PRN Reason: Protocol Sevelamer HCl (Renagel) 800 mg PO TID [facility] Last Admin: 04/04/17 18:11 Dose: 800 mg Silver Sulfadiazine (Silvadene 1% 25 Gm) 25 gm TP DAILY [facility] Last Admin: 04/03/17 11:44 Dose: Not Given Valsartan (Diovan) 320 mg PO DAILY [facility] Last Admin: 04/04/17 10:27 Dose: 320 mg Vitamin B Complex/Vit C/Folic Acid (Nephro-Yudi) 1 tab PO DAILY [facility] Last Admin: 04/04/17 10:27 Dose: 1 tab - Labs Labs: 04/04/17 16:37 04/04/17 16:37 APTT 31.9 Seconds (25.1-36.5) 03/30/17 17:51 - Constitutional Appears: Non-toxic, No Acute Distress - Eye Exam Eye Exam: absent: Scleral icterus - ENT Exam ENT Exam: absent: Mucous Membranes Moist - Respiratory Exam Respiratory Exam: Clear to Ausculation Bilateral, Respiratory Distress - Cardiovascular Exam Cardiovascular Exam: RRR, +S1, +S2 - GI/Abdominal Exam GI & Abdominal Exam: Soft. absent: Distended, Tenderness - Extremities Exam Additional comments: no leg edema; - Psychiatric Exam Psychiatric exam: absent: Agitated - Skin Skin Exam: Warm. absent: Cyanosis Assessment and Plan (1) ESRD (end stage renal disease) Assessment & Plan: Stable electrolyte and volume status (even after angiogram/arthrectomy procedures yesterday); no need for HD today, next session tomorrow per routine; Status: Chronic (2) Heel ulceration Assessment & Plan: On zyvox and zosyn (correctly dosed for ESRD); Status: Acute (3) Anemia in ESRD (end-stage renal disease) Status: Acute (4) Chronic kidney disease-mineral and bone disorder Status: Acute (5) Hypertensive CKD, ESRD on dialysis Assessment & Plan: BP relatively controlled; continue current meds; Status: Acute
--- NOTE | 2017-04-05 05:13 | CON ---
DATE: HISTORY OF PRESENT ILLNESS: Shortly, the patient is a 76-year-old -[place] male with not known previous psychiatric history. The patient has multiple medical issues. The patient was admitted on the medical side for evaluation of possible wound care, debridement, and maybe amputation of his left lower extremity. Psych consult was called for evaluation of confusion. The patient was seen and examined today. The patient presented to be alert, but he is confused. He does know what hospital he is in. The patient has a friend, she is next to him, whom he was able to recognize. The patient wanted to be interviewed in front of his female friend. The patient reported that he does not feel depressed. He does not want to kill himself or others. He denied hearing voices. He denied seeing things. The patient allowed this inspector automatic typewriter to talk to the patient's friend. She reported that the patient at present moment doing a little bit better, before he was not able to recognize her. The patient seems to be improving from the mental status. This inspector automatic typewriter reviewed vital signs. Vital signs seemed to be stable. Temperature 97.3, pulse is 56, blood pressure 120/60, respirations 18, and oxygen saturation 99%. MEDICATIONS: Reviewed. The patient is on Tylenol, Norvasc, Coreg, Sensipar, Catapres, Aricept 10 mg at the night time, Humulin, Zyvox, Protonix, Zosyn, Lyrica, Risperdal 1 mg at the night time schedule, Renagel, Silvadene, Diovan, Nephro-Yudi. LABS: Reviewed. Most recently was from today. Hemoglobin of 9.1, hematocrit 28. Coagulation reviewed. Chemistry reviewed. Potassium 3.5. Microbiology: Proteus mirabilis as well as methicillin-resistant Staph aureus and Enterococcus faecalis, and it was obtained from the wound on the left lower extremity. This inspector automatic typewriter reviewed previous history. The patient was seen by Dr. Sheth, most recent was in 2014. The patient was on Risperdal back then, and this inspector automatic typewriter has assumption that the patient needs to continue on that medication and he has some indication for that medication to be continued. Blood work reviewed. Reports reviewed. Reviewed ID note as well. As per notes from the medical and ID team, prognosis is very poor. MENTAL STATUS EXAMINATION: The patient presented to be alert, disoriented, was able to recognize his friend next to him. The patient has vague eye contact. Speech was underproductive, low, low volume. Mood described as "I feel fine, I feel okay." Affect was constricted. Thought process concrete. Thought content, the patient denied visual, auditory or tactile hallucinations. Denied thoughts of harming himself or others. Denied paranoid ideations. Insight and judgment seemed to be limited but improving. Impulses were well controlled. IMPRESSION: As per history, most likely the patient has dementia. The patient was on Risperdal in the past. This inspector automatic typewriter has assumption that the patient needs to continue on that medication. The patient has power of assistant prosecuting attorney, who is his daughter. His daughter needs to be contacted and clarify if the patient needs to be on that medication or not. The patient was on Risperdal since 2014 which was started by Dr. Graves. This inspector automatic typewriter would recommend to continue everything as it is right now. Obtain more information. Meanwhile, the patient does not present to be in any distress, pose no imminent danger to self or others. Should you have any questions, give me a call back. Meanwhile, this inspector automatic typewriter will sign off. Thank you very much for letting me to participate in the care of your patient. Karyn Sanchez MD
[2017-04-05] MEDS: Piperacillin/Tazobact 2.25gm 2.25 GM/100 ML BAG IVPB SCH ×3 (05:50→20:24)
[2017-04-05 06:49] LABS: BASO # 0.02 K/mm3 (0.0-2.0); BASO % 0.4 % (0.0-3.0); EOS # 0.2 (0.0-0.7); EOS % 3.7 % (1.5-5.0); GRAN # 3.32 (1.4-6.5); GRAN % 69.1 % (50.0-68.0); HEMATOCRIT 27.7 % (42.0-52.0); LYMPH # 0.9 (1.2-3.4); LYMPH % 19.1 % (22.0-35.0); MEAN CELL VOLUME 84.5 fl (80.0-105.0); MEAN CORPUSCULAR HEMOGLOBIN 26.8 pg (25.0-35.0); MEAN CORPUSCULAR HGB CONC 31.8 g/dl (31.0-37.0); MONO # 0.4 (0.1-0.6); MONO % 7.7 % (1.0-6.0); PLATELET COUNT 62 10^3/uL (120.0-450.0); RED CELL DISTRIBUTION WIDTH 16.5 % (11.5-14.5); WHITE BLOOD COUNT 4.8 10^3/ul (4.5-11.0)
[2017-04-05 07:11] LABS: CALCIUM 9.7 mg/dL (8.4-10.5)
[2017-04-05] MEDS ORDERED: Lidocaine 1% Inj (20ml) ONE (07:30)
[2017-04-05] MEDS ORDERED: Bupivacaine 0.5% Inj(30mL) ONE (07:30)
[2017-04-05] MEDS ORDERED: Propofol 10 mg/ml Inj (20 ML) ONE (07:53)
[2017-04-05] MEDS ORDERED: Midazolam 2 MG/2 ML VIAL ONE (07:53)
--- NOTE | 2017-04-05 08:03 | CP.PCM.PN ---
<Carmel Perez - Last Filed: 04/05/17 15:02> Subjective - Date & Time of Evaluation Date of Evaluation: 04/05/17 Time of Evaluation: 07:05 - Subjective Subjective: Heme/Onc Patient with no acute events. Patient demented, with waxing and waning mental status. Objective - Vital Signs/Intake and Output Vital Signs (last 24 hours): Temp Pulse Resp BP Pulse Ox 97.6 F 52 L 18 153/58 H 96 04/05/17 07:15 04/05/17 07:15 04/05/17 07:15 04/05/17 07:15 04/05/17 07:15 Intake and Output: 04/05/17 04/05/17 06:59 18:59 Intake Total 780 Output Total 0 Balance 780 - Medications Medications: Current Medications Acetaminophen (Tylenol 325mg Tab) 325 mg PO Q4H PRN PRN Reason: Fever >100.4 F Amlodipine Besylate (Norvasc) 10 mg PO DAILY [facility] Last Admin: 04/04/17 10:26 Dose: 10 mg Carvedilol (Coreg) 6.25 mg PO BID [facility] Last Admin: 04/04/17 18:11 Dose: Not Given Cinacalcet (Sensipar) 30 mg PO DAILY [facility] Last Admin: 04/04/17 10:27 Dose: 30 mg Clonidine HCl (Catapres) 0.1 mg PO Q8 PRN PRN Reason: SBP 170 OR MORE Donepezil HCl (Aricept) 10 mg PO HS [facility] Last Admin: 04/04/17 21:55 Dose: 10 mg Hydralazine HCl (Apresoline) 100 mg PO Q8 [facility] Last Admin: 04/05/17 06:32 Dose: Not Given Piperacillin Sod/Tazobactam Sod (Zosyn 2.25 Gm In 0.9% 100 Ml) 2.25 gm in 100 mls @ 100 mls/hr IVPB Q6 [facility] PRN Reason: Protocol Stop: 04/07/17 00:01 Last Admin: 04/05/17 05:50 Dose: 100 mls/hr Linezolid (Zyvox 600mg/300ml D5w) 600 mg in 300 mls @ 200 mls/hr IVPB Q12 [facility] PRN Reason: Protocol Stop: 04/06/17 22:01 Last Admin: 04/04/17 21:55 Dose: 200 mls/hr Insulin Human Regular (Humulin R Med) 0 units SC ACHS [facility] PRN Reason: Protocol Last Admin: 04/04/17 22:20 Dose: Not Given Lactulose (Enulose) 20 gm PO BID [facility] Last Admin: 04/04/17 18:11 Dose: 20 gm Pantoprazole Sodium (Protonix Ec Tab) 20 mg PO DAILY [facility] Last Admin: 04/04/17 10:26 Dose: 20 mg Pregabalin (Lyrica) 50 mg PO TID [facility] Last Admin: 04/04/17 18:11 Dose: 50 mg Risperidone (Risperdal Tab) 1 mg PO HS [facility] PRN Reason: Protocol Sevelamer HCl (Renagel) 800 mg PO TID [facility] Last Admin: 04/04/17 18:11 Dose: 800 mg Silver Sulfadiazine (Silvadene 1% 25 Gm) 25 gm TP DAILY [facility] Last Admin: 04/03/17 11:44 Dose: Not Given Valsartan (Diovan) 320 mg PO DAILY [facility] Last Admin: 04/04/17 10:27 Dose: 320 mg Vitamin B Complex/Vit C/Folic Acid (Nephro-Yudi) 1 tab PO DAILY [facility] Last Admin: 04/04/17 10:27 Dose: 1 tab - Labs Labs: 04/05/17 06:30 04/05/17 06:30 APTT 31.9 Seconds (25.1-36.5) 03/30/17 17:51 - Constitutional Appears: No Acute Distress - Head Exam Head Exam: ATRAUMATIC, NORMAL INSPECTION, NORMOCEPHALIC - Eye Exam Eye Exam: EOMI, Normal appearance - ENT Exam ENT Exam: Mucous Membranes Moist - Neck Exam Neck Exam: Normal Inspection - Respiratory Exam Respiratory Exam: Clear to Ausculation Bilateral, NORMAL BREATHING PATTERN. absent: Rales, Rhonchi, Wheezes, Respiratory Distress, Stridor - Cardiovascular Exam Cardiovascular Exam: REGULAR RHYTHM, +S1, +S2 - GI/Abdominal Exam GI & Abdominal Exam: Soft, Normal Bowel Sounds. absent: Distended, Firm, Guarding, Rigid, Tenderness - Extremities Exam Extremities Exam: absent: Pedal Edema Additional comments: + Fistula fei heel with ulcerations, left heel with dressing. - Back Exam Back Exam: NORMAL INSPECTION - Neurological Exam Neurological Exam: Alert, Awake Additional comments: waxing and waning mental status. - Psychiatric Exam Psychiatric exam: Normal Affect, Normal Mood - Skin Skin Exam: Dry, Warm Assessment and Plan - Assessment and Plan (Free Text) Assessment: Mr Cabral is 76 y/o with multiple comorbidities from longterm whom presented to [facility] with diabetic foot, being treated for bilateral gangrenous heels, with wound cultures from left heel currently growing multiple organisms, ESRD on HD, h/o possible renal cell carcinoma, anemia of chronic disease, thrombocytopenia. Dr Jackson is consulted for anemia and thrombocytopenia. 1) Anemia is likely due to ESRD, patient is on high dose epo as outpatient 2) Thrombocytopenia r/o HIT 3) H/o chronic hep B 4) Renal cell carcinoma- spoke to patient's daughter, Misti at [phone] on 04/03/17 @1210, states she doesn't want patient to undergo surgery due to dementia and all the comorbidities. 5) Fei heel ulcerations with PVD. Plan: Platelet stable. Pending HIT antibodies test. Continue to hold heparin sc and asa. Patient is being followed by ID, podiatry, and IR for PVD and wound infection. Medical management as per primary. Patient seen, examined and case discussed with Dr Jackson. <Chiquita Jackson P - Last Filed: 04/07/17 23:18> Objective - Vital Signs/Intake and Output Vital Signs (last 24 hours): Temp Pulse Resp BP Pulse Ox 97.7 F 63 18 156/72 H 99 04/07/17 07:30 04/07/17 17:50 04/07/17 07:30 04/07/17 17:50 04/07/17 07:30 Intake and Output: 04/07/17 04/08/17 18:59 06:59 Intake Total 360 Balance 360 - Medications Medications: Current Medications Acetaminophen (Tylenol 325mg Tab) 325 mg PO Q4H PRN PRN Reason: Fever >100.4 F Acetaminophen (Tylenol 325mg Tab) 650 mg PO Q6H PRN PRN Reason: Pain, Mild (1-3) Amlodipine Besylate (Norvasc) 10 mg PO DAILY [facility] Last Admin: 04/07/17 17:50 Dose: 10 mg Aspirin (Ecotrin) 81 mg PO DAILY [facility] Last Admin: 12/09/17 11:18 Dose: 81 mg Carvedilol (Coreg) 6.25 mg PO BID [facility] Last Admin: 04/07/17 17:50 Dose: 6.25 mg Cinacalcet (Sensipar) 30 mg PO DAILY [facility] Last Admin: 04/07/17 09:04 Dose: 30 mg Donepezil HCl (Aricept) 10 mg PO HS [facility] Last Admin: 04/07/17 21:23 Dose: 10 mg Hydralazine HCl (Apresoline) 100 mg PO Q8 [facility] Last Admin: 04/05/17 06:32 Dose: Not Given Insulin Human Regular (Humulin R Med) 0 units SC ACHS [facility] PRN Reason: Protocol Last Admin: 04/07/17 18:02 Dose: Not Given Lactic Acid (Lac-Hydrin 12% Cream (140 G)) 0 ea TOP BID [facility] Last Admin: 04/07/17 10:05 Dose: 1 applic Lactulose (Enulose) 20 gm PO BID [facility] Last Admin: 04/06/17 12:59 Dose: Not Given Pantoprazole Sodium (Protonix Ec Tab) 20 mg PO DAILY [facility] Last Admin: 04/07/17 09:04 Dose: 20 mg Pregabalin (Lyrica) 50 mg PO TID [facility] Last Admin: 04/07/17 17:49 Dose: 50 mg Risperidone (Risperdal Tab) 1 mg PO HS [facility] PRN Reason: Protocol Last Admin: 04/07/17 21:23 Dose: 1 mg Sevelamer HCl (Renagel) 800 mg PO TID [facility] Last Admin: 04/07/17 17:49 Dose: 800 mg Silver Sulfadiazine (Silvadene 1% 25 Gm) 25 gm TP DAILY [facility] Last Admin: 04/07/17 10:00 Dose: 25 gm Valsartan (Diovan) 320 mg PO DAILY [facility] Last Admin: 04/05/17 10:45 Dose: Not Given Vitamin B Complex/Vit C/Folic Acid (Nephro-Yudi) 1 tab PO DAILY [facility] Last Admin: 04/07/17 09:04 Dose: 1 tab - Labs Labs: 04/07/17 12:35 04/07/17 12:35 APTT 31.9 Seconds (25.1-36.5) 03/30/17 17:51 Attending/Attestation - Attestation I have personally seen and examined this patient.: Yes I have fully participated in the care of the patient.: Yes I have reviewed all pertinent clinical information, including history, physical exam and plan: Yes
[2017-04-05] MEDS: Insulin Reg-MEDIUM-Coverage SC SCH ×4 (08:17→21:58)
[2017-04-05] MEDS ORDERED: Oxycodone/Acetaminophen 5/325 mg Tab PO PRN ×2 (08:48)
--- NOTE | 2017-04-05 09:03 | PCM.SURG1 ---
Surgeon's Initial Post Op Note - Surgeon's Notes Surgeon: Dr. Robyn DPM Software Support Engineer: Dr. Cristina Rosario DPM PGY1 Type of Anesthesia: IV Sedation, Local (19cc 1:1 mixture of 1% lidocaine plain and 0.5% marcaine plain) Anesthesia Administered By: Dr. Saleem Pre-Operative Diagnosis: Gangrenous diabetic heel ulcer left foot Operative Findings: See operative report Post-Operative Diagnosis: Gangrenous diabetic heel ulcer left foot Operation Performed: Left foot wound debridement Specimen/Specimens Removed: Left heel wound culture Estimated Blood Loss: EBL {In ML}: 5 Blood Products Given: N/A Drains Used: No Drains Post-Op Condition: Good Date of Surgery/Procedure: 04/05/17 Time of Surgery/Procedure: 08:00
[2017-04-05] MEDS ORDERED: Dextrose 50% SYRINGE Inj (50 ml) IVP ONE (09:04)
[2017-04-05] MEDS: Linezolid 600 mg in D5W 300 ml 600 MG/300 ML BAG IVPB SCH ×3 (10:47→21:58)
[2017-04-05] MEDS: Pantoprazole 20 mg EC Tab PO SCH (10:52)
[2017-04-05] MEDS: Multivitamin Vitamin B Complex (Nephro-Vite) Tab PO SCH (10:53)
--- NOTE | 2017-04-05 11:21 | OP ---
PROCEDURE DATE: 04/05/2017 PREOPERATIVE DIAGNOSIS: Gangrenous diabetic heel ulcer left foot. POSTOPERATIVE DIAGNOSIS: Gangrenous diabetic heel ulcer left foot. NAME OF PROCEDURE: Left foot wound debridement. SURGEON: Dr. Phu Carlson DPM WELFARE VISITOR: Dr. Cristina Rosario DPM PGY-1. ANESTHESIOLOGIST: Dr. Saleem. TYPE OF ANESTHESIA: IV sedation with local, 19 mL of 1:1 mixture of 1% lidocaine plain and 0.5% Marcaine plain. INDICATIONS: The patient is a 76-year-old male with the above diagnosis. The patient has exhausted all conservative treatments at this time and now requests surgical intervention. The patient has had chronic non-healing ulceration to the left heel. The patient's daughter was contacted as proxy regarding explanation of procedure along with risks, benefits, complications, and alternatives for the surgical procedure. No guarantees were given or implied. After answering all the patient's daughter's questions and concerns, the patient's daughter verbally consented for the procedure and a nurse was present to sign the consent form as a witness. PREPARATION: The patient was taken into the operating room and placed on the operating room table in the supine position. A time-out was performed for identification of the correct patient and procedure. After induction of IV sedation, approximately 19 mL of 1:1 mixture of 1% lidocaine plain and 0.5% Marcaine plain was administered in a proximal V-type fashion to the left heel. Once local anesthesia was achieved, the left lower extremity was prepped and draped in normal sterile manner and the procedure began. Attention was directed to the left heel where necrotic full thickness ulceration with eschar cap was noted. The wound was noted to be boggy in nature. Using a #15 blade, the eschar cap was excisionally debrided from the left heel revealing subcutaneous tissue along with a mixed fibroglandular base. At this point, it was noted that the wound probed to bone. It was noted at the distal aspect of the heel ulceration there was an opening and tunneling at approximately 12 o'clock, the ulcer tunneled approximately 6 cm distal. Once found, a pocket of purulent drainage was released. Approximately 2 mL of purulent was expressed from this tunneling. Using Versajet mechanical debridement tool on setting 4, all fibrotic and nonviable tissue was debrided from the wound base and wound margins. Next, utilizing a pulse lavage with 3 L normal saline, the area was irrigated. Next, a deep wound culture was taken through the area of tunneling and passed from the surgical site to be sent to pathology. The tunnel was packed with 0.5-inch Iodosorb and the left heel was then dressed with Betadine-soaked Adaptic and a dry sterile dressing. POSTOPERATIVE CONDITION: The patient tolerated the anesthesia and procedure well and was escorted to the Recovery Room with vital signs stable and neurovascular status intact to the left foot. The patient's dressing will be changed tomorrow. Podiatry will continue to follow patient while in house. Cristina Rosario DPM Phu Carlson DPM [id number]
--- NOTE | 2017-04-05 12:10 | PN ---
DATE: 04/04/2017 SUBJECTIVE: The patient is clinically stable. The patient does have baseline dementia with intermittent confusion, but physically stable and no distress. No complaint. No chest pain. No respiratory distress. PHYSICAL EXAMINATION VITAL SIGNS: Temperature 97.3, heart rate 56, blood pressure 120/60, respiratory rate 18 and O2 saturation 99%. HEAD AND NECK: Normal. No JVD. No thyromegaly. CHEST: Clear with air entry. CARDIAC: First sound and second sound normal. ABDOMEN: Soft and nontender. EXTREMITIES: There is no edema. Left heel, there is a large necrotic area and right leg has otherwise no ischemia. NEUROLOGIC: The patient has dementia with confusions intermittently getting worse, but no neurologic deficits in upper or lower extremity. He is otherwise generally weak. LABORATORY DATA: On 04/04/2017, his white count 5.2, hemoglobin 9.1, hematocrit 28.1 and platelets 64. Chemistry: Sodium 137, potassium 3.5, chloride 101, bicarb 27, BUN 18 and creatinine 4.1. Liver function test including sugar was 76, calcium 9.7, phosphorus 4.9, magnesium 2.1. Liver function test is normal. His PT/PTT within normal range. IMPRESSION AND PLAN: 1. Left heel necrosis, probably need debridement versus surgical evaluation including amputations below knee or most likely the patient will benefit from debridement and specially after revascularization. Dr. Carlson is a Podiatry surgeon, wanted to take care of that part and planning surgery tomorrow. 2. Peripheral vascular disease, bilateral tibial arteries, status post revascularizations with atherectomy by Dr. Jed Griffith. We will continue current therapy. The patient will need antiplatelets. We will hold off on that for now until surgery done. 3. Chronic renal failure. Continue hemodialysis. 4. Chronic anemia. 5. Chronic hepatitis B. 6. Thrombocytopenia. He is not a candidate for any antiviral therapy with his general conditions. Also, the patient does have a history of renal mass, history of nephrectomy. We will hold off and it has been discussed with daughter, no further workup should be done on this. 7. Diabetes, continue insulin. We will monitor his sugar on a regular basis. 8. Hypertension, dementia with behavioral disturbance including agitations. We will continue current therapy. CURRENT MEDICATIONS: Hydralazine 100 mg every 8 hours, Aricept 10 mg at bedtime, Catapres 0.1 q. 8 h., Coreg 6.25 b.i.d., Diovan 320, Enulose 20, insulin coverage, Lac-Hydrin, Lyrica 50 t.i.d., multivitamin, B complex, folic acid, Norvasc 10 mg daily, Percocet p.r.n., Protonix 20 mg p.o. daily, Renagel 800 mg t.i.d., Risperdal 1 mg at bedtime, Sensipar 30 mg p.o. daily. The patient taking Silvadene cream topically and Tylenol p.r.n. PLAN: Also, we will continue Zosyn 2.25 g IV every 6 hours and Zyvox 600 mg q. 12 hours for his current left leg cellulitis infection and gangrene. Continue current therapy. Follow up clinically. Barber Aguirre MD
[2017-04-05 13:12] LABS: ALB/GLOB RATIO 0.7 (1.1-1.8); BILIRUBIN,TOTAL 0.2 mg/dL (0.2-1.3); CALCIUM 9.8 mg/dL (8.4-10.5); PHOSPHOROUS 5.7 mg/dL (2.5-4.5); POTASSIUM 3.8 mmol/L (3.6-5.0); TOTAL PROTEIN 6.6 g/dL (5.8-8.3)
--- NOTE | 2017-04-05 15:34 | CP.PCM.CON ---
History of Present Illness - History of Present Illness History of Present Illness: Palliative consult requested Reason: Goals of care/advance care planning 76 year old male with ESRD dialysis dependant, DM who was sent from [place] with gangrene of left foot, left foot pain, azotemia, generalized weakness, anemia and thrombocytopenia. He denied fever,chills, nausea, vomiting or pain. Chest x ray showed evidence of prior granulomatosis. PMHx: ESRD dialysis dependent, Hep B, right nephrectomy,HTN,PVD,neuropathy, GI bleed anemia,bullous pemphigoid and dementia Social History:Non smoker, no alcohol or drug use.Resident of [place], [place] Family History:Unknown. Advance Care Planning: The patient does not have an Advanced Directive. Daughter , Misti Cabral is POA. Review of Systems: As per HPI, otherwise negative. Past Patient History - Infectious Disease Hx of Infectious Diseases: None - Tetanus Immunizations Tetanus Immunization: Unknown - Past Medical History & Family History Past Medical History?: Yes - Past Social History Smoking Status: Never Smoked - CARDIAC Hx Pacemaker: No - PULMONARY Hx Chronic Obstructive Pulmonary Disease (COPD): Yes - NEUROLOGICAL HX Cerebrovascular Accident: Yes Hx Dementia: Yes Hx Seizures: Yes - HEENT Hx HEENT Problems: No (WEARS RX GLASSES) - RENAL Hx Chronic Kidney Disease: Yes Hx Dialysis: Yes Hx Renal Failure: Yes (CKD, ESRD w/ HD) - ENDOCRINE/METABOLIC Hx Endocrine Disorders: Yes Hx Diabetes Mellitus Type 2: Yes Hx Hypothyroidism: No - HEMATOLOGICAL/ONCOLOGICAL Hx Blood Transfusions: Yes Hx Blood Transfusion Reaction: No - INTEGUMENTARY Hx Dermatological Problems: Yes (Bullous pemphigoid) - MUSCULOSKELETAL/RHEUMATOLOGICAL Hx Musculoskeletal Disorders: Yes Hx Arthritis: Yes Hx Unsteady Gait: Yes - GASTROINTESTINAL Hx Gastrointestinal Disorders: Yes Hx Crohn's Disease: No Hx Diverticulitis: No Hx Gall Bladder Disease: No Hx Pancreatitis: No - GENITOURINARY/GYNECOLOGICAL Hx Sexually Transmitted Disorders: No - PSYCHIATRIC Hx Anxiety: No Hx Bipolar Disorder: No Hx Depression: No Hx Post Traumatic Stress Disorder: No Hx Schizophrenia: No - SURGICAL HISTORY Hx Surgeries: Yes - ANESTHESIA Hx Anesthesia Reactions: No Hx Malignant Hyperthermia: No Meds Allergies/Adverse Reactions: Allergies Allergy/AdvReac Type Severity Reaction Status Date / Time No Known Allergies Allergy Verified 03/30/17 16:29 - Medications Medications: Current Medications Acetaminophen (Tylenol 325mg Tab) 325 mg PO Q4H PRN PRN Reason: Fever >100.4 F Acetaminophen (Tylenol 325mg Tab) 650 mg PO Q6H PRN PRN Reason: Pain, Mild (1-3) Amlodipine Besylate (Norvasc) 10 mg PO DAILY [facility] Last Admin: 04/05/17 10:46 Dose: Not Given Carvedilol (Coreg) 6.25 mg PO BID [facility] Last Admin: 04/05/17 10:45 Dose: Not Given Cinacalcet (Sensipar) 30 mg PO DAILY [facility] Last Admin: 04/05/17 10:45 Dose: 30 mg Donepezil HCl (Aricept) 10 mg PO HS [facility] Last Admin: 04/04/17 21:55 Dose: 10 mg Hydralazine HCl (Apresoline) 100 mg PO Q8 [facility] Last Admin: 04/05/17 06:32 Dose: Not Given Piperacillin Sod/Tazobactam Sod (Zosyn 2.25 Gm In 0.9% 100 Ml) 2.25 gm in 100 mls @ 100 mls/hr IVPB Q6 [facility] PRN Reason: Protocol Stop: 04/07/17 00:01 Last Admin: 04/05/17 05:50 Dose: 100 mls/hr Linezolid (Zyvox 600mg/300ml D5w) 600 mg in 300 mls @ 200 mls/hr IVPB Q12 [facility] PRN Reason: Protocol Stop: 04/06/17 22:01 Last Admin: 04/05/17 10:47 Dose: 200 mls/hr Insulin Human Regular (Humulin R Med) 0 units SC ACHS [facility] PRN Reason: Protocol Last Admin: 04/05/17 11:51 Dose: Not Given Lactic Acid (Lac-Hydrin 12% Cream (140 G)) 0 ea TOP BID [facility] Lactulose (Enulose) 20 gm PO BID [facility] Last Admin: 04/05/17 10:45 Dose: 20 gm Oxycodone/Acetaminophen (Percocet 5/325 Mg Tab) 1 tab PO Q6H PRN PRN Reason: Pain, moderate (4-7) Stop: 04/08/17 08:49 Oxycodone/Acetaminophen (Percocet 5/325 Mg Tab) 2 tab PO Q6H PRN PRN Reason: Pain, severe (8-10) Stop: 04/08/17 08:49 Pantoprazole Sodium (Protonix Ec Tab) 20 mg PO DAILY [facility] Last Admin: 04/05/17 10:52 Dose: 20 mg Pregabalin (Lyrica) 50 mg PO TID [facility] Last Admin: 04/05/17 10:45 Dose: 50 mg Risperidone (Risperdal Tab) 1 mg PO [facility] PRN Reason: Protocol Sevelamer HCl (Renagel) 800 mg PO TID [facility] Last Admin: 04/05/17 10:45 Dose: 800 mg Silver Sulfadiazine (Silvadene 1% 25 Gm) 25 gm TP DAILY [facility] Last Admin: 04/03/17 11:44 Dose: Not Given Valsartan (Diovan) 320 mg PO DAILY [facility] Last Admin: 04/05/17 10:45 Dose: Not Given Vitamin B Complex/Vit C/Folic Acid (Nephro-Yudi) 1 tab PO DAILY [facility] Last Admin: 04/05/17 10:53 Dose: 1 tab Physical Exam - Constitutional Appears: Chronically Ill - Head Exam Head Exam: NORMAL INSPECTION - Eye Exam Eye Exam: Normal appearance, PERRL - ENT Exam ENT Exam: Mucous Membranes Moist, Normal Oropharynx - Neck Exam Neck exam: Positive for: Normal Inspection - Respiratory Exam Respiratory Exam: Clear to Auscultation Bilateral, NORMAL BREATHING PATTERN - Cardiovascular Exam Cardiovascular Exam: Bradycardia, +S1 - GI/Abdominal Exam GI & Abdominal Exam: Normal Bowel Sounds, Soft - Extremities Exam Extremities exam: Positive for: pedal edema - Back Exam Back exam: NORMAL INSPECTION - Neurological Exam Neurological exam: Alert - Skin Skin Exam: Dry, Warm Additional comments: flaky - Additional Findings Additional findings: Palliative performance scale rating 40% Results - Vital Signs Recent Vital Signs: Last Vital Signs Temp 97.6 F 04/05/17 09:47 Pulse 48 L 04/05/17 09:47 Resp 18 04/05/17 09:47 BP 104/62 04/05/17 09:47 Pulse Ox 98 04/05/17 09:47 - Labs Result Diagrams: 04/05/17 06:30 04/05/17 12:20 Labs: Laboratory Results - last 24 hr 04/04/17 04/04/17 04/04/17 07:30 16:19 16:37 WBC RBC Hgb Hct MCV MCH MCHC RDW Plt Count Manual Plt Count Gran % Lymph % (Auto) Hall % (Auto) Eos % (Auto) Baso % (Auto) Gran # Lymph # Hall # Eos # Baso # Sodium 137 Potassium 3.5 L Chloride 101 Carbon Dioxide 27 Anion Gap 12 BUN 18 Creatinine 4.1 H Est GFR ( Amer) 17 Est GFR (Non-Af Amer) 14 POC Glucose (mg/dL) 68 63 L Random Glucose 76 Calcium 9.7 Phosphorus 4.9 H Magnesium 2.1 Total Bilirubin 0.3 AST 26 ALT 27 Alkaline Phosphatase 86 Total Protein 6.7 Albumin 2.7 L Globulin 4.0 Albumin/Globulin Ratio 0.7 L 25-OH Vitamin D Total 04/04/17 04/04/17 04/04/17 16:37 16:37 16:49 WBC 5.2 D RBC 3.31 L Hgb 9.1 L Hct 28.1 L MCV 84.9 MCH 27.5 MCHC 32.4 RDW 16.4 H Plt Count 64 L Manual Plt Count Gran % 76.1 H Lymph % (Auto) 13.0 L Hall % (Auto) 7.6 H Eos % (Auto) 3.1 Baso % (Auto) 0.2 Gran # 3.99 Lymph # 0.7 L Hall # 0.4 Eos # 0.2 Baso # 0.01 Sodium Potassium Chloride Carbon Dioxide Anion Gap BUN Creatinine Est GFR ( Amer) Est GFR (Non-Af Amer) POC Glucose (mg/dL) 60 L Random Glucose Calcium Phosphorus Magnesium Total Bilirubin AST ALT Alkaline Phosphatase Total Protein Albumin Globulin Albumin/Globulin Ratio 25-OH Vitamin D Total < 12.8 L 04/04/17 04/04/17 04/05/17 17:27 21:06 06:30 WBC RBC Hgb Hct MCV MCH MCHC RDW Plt Count Manual Plt Count 70 L* Gran % Lymph % (Auto) Hall % (Auto) Eos % (Auto) Baso % (Auto) Gran # Lymph # Hall # Eos # Baso # Sodium Potassium Chloride Carbon Dioxide Anion Gap BUN Creatinine Est GFR ( Amer) Est GFR (Non-Af Amer) POC Glucose (mg/dL) 119 H 84 Random Glucose Calcium Phosphorus Magnesium Total Bilirubin AST ALT Alkaline Phosphatase Total Protein Albumin Globulin Albumin/Globulin Ratio 25-OH Vitamin D Total 04/05/17 04/05/17 04/05/17 06:30 06:30 07:03 WBC 4.8 RBC 3.28 L Hgb 8.8 L Hct 27.7 L MCV 84.5 MCH 26.8 MCHC 31.8 RDW 16.5 H Plt Count 62 L Manual Plt Count Gran % 69.1 H Lymph % (Auto) 19.1 L Hall % (Auto) 7.7 H Eos % (Auto) 3.7 Baso % (Auto) 0.4 Gran # 3.32 Lymph # 0.9 L Hall # 0.4 Eos # 0.2 Baso # 0.02 Sodium 136 Potassium 4.0 Chloride 103 Carbon Dioxide 26 Anion Gap 11 BUN 20 Creatinine 4.5 H Est GFR ( Amer) 15 Est GFR (Non-Af Amer) 13 POC Glucose (mg/dL) 67 Random Glucose 69 L Calcium 9.7 Phosphorus Magnesium Total Bilirubin AST ALT Alkaline Phosphatase Total Protein Albumin Globulin Albumin/Globulin Ratio 25-OH Vitamin D Total 04/05/17 04/05/17 04/05/17 08:57 09:07 11:03 WBC RBC Hgb Hct MCV MCH MCHC RDW Plt Count Manual Plt Count Gran % Lymph % (Auto) Hall % (Auto) Eos % (Auto) Baso % (Auto) Gran # Lymph # Hall # Eos # Baso # Sodium Potassium Chloride Carbon Dioxide Anion Gap BUN Creatinine Est GFR ( Amer) Est GFR (Non-Af Amer) POC Glucose (mg/dL) 62 L 155 H 103 Random Glucose Calcium Phosphorus Magnesium Total Bilirubin AST ALT Alkaline Phosphatase Total Protein Albumin Globulin Albumin/Globulin Ratio 25-OH Vitamin D Total 04/05/17 12:20 WBC RBC Hgb Hct MCV MCH MCHC RDW Plt Count Manual Plt Count Gran % Lymph % (Auto) Hall % (Auto) Eos % (Auto) Baso % (Auto) Gran # Lymph # Hall # Eos # Baso # Sodium 136 Potassium 3.8 Chloride 101 Carbon Dioxide 26 Anion Gap 13 BUN 20 Creatinine 4.8 H Est GFR ( Amer) 14 Est GFR (Non-Af Amer) 12 POC Glucose (mg/dL) Random Glucose 83 Calcium 9.8 Phosphorus 5.7 H Magnesium 2.0 Total Bilirubin 0.2 AST 25 ALT 28 Alkaline Phosphatase 86 Total Protein 6.6 Albumin 2.6 L Globulin 4.0 Albumin/Globulin Ratio 0.7 L 25-OH Vitamin D Total Assessment & Plan - Assessment and Plan (Free Text) Assessment: 76 year old male with history ESRD, HTN, dementia and multiple comorbidities who is admitted with left foot gangrene,anemia, thrombocytopenia. Patient to have debridement of left heel ulcer and evaluation for possible amputation. The patient is alert, confused. He becomes agitated at times.He is primarily bed bound and dependent on others for most ADL's. He is a resident of [facility]. He is not able to carry lengthy conversations. I spoke with patient's daughter via phone. When asked if the patient has an Advanced Directive, daughter stated he did not. Daughter is open to discussing advance care planning. She is unable to meet with me today as she works nights and was sleeping when I called. Daughter has agreed to meet with me tomorrow morning after work. Plan: Palliative support in establishing goals of care. Advance care planning
--- NOTE | 2017-04-05 16:00 | CP.PCM.PN ---
Subjective - Date & Time of Evaluation Date of Evaluation: 04/05/17 Time of Evaluation: 15:57 - Subjective Subjective: Progress note for nephrology, Dr. Garcia Pt is seen and examined at bedside. Patient is status post left foot wound debridement. Patient is being prepared for dialysis treatment. Patient denies having any CP, SOB, abd pain. Objective - Vital Signs/Intake and Output Vital Signs (last 24 hours): Temp Pulse Resp BP Pulse Ox 97.6 F 48 L 18 104/62 98 04/05/17 09:47 04/05/17 09:47 04/05/17 09:47 04/05/17 09:47 04/05/17 09:47 Intake and Output: 04/05/17 04/05/17 06:59 18:59 Intake Total 780 120 Output Total 0 Balance 780 120 - Medications Medications: Current Medications Acetaminophen (Tylenol 325mg Tab) 325 mg PO Q4H PRN PRN Reason: Fever >100.4 F Acetaminophen (Tylenol 325mg Tab) 650 mg PO Q6H PRN PRN Reason: Pain, Mild (1-3) Amlodipine Besylate (Norvasc) 10 mg PO DAILY [facility] Last Admin: 04/05/17 10:46 Dose: Not Given Carvedilol (Coreg) 6.25 mg PO BID [facility] Last Admin: 04/05/17 10:45 Dose: Not Given Cinacalcet (Sensipar) 30 mg PO DAILY [facility] Last Admin: 04/05/17 10:45 Dose: 30 mg Donepezil HCl (Aricept) 10 mg PO HS [facility] Last Admin: 04/04/17 21:55 Dose: 10 mg Hydralazine HCl (Apresoline) 100 mg PO Q8 [facility] Last Admin: 04/05/17 06:32 Dose: Not Given Piperacillin Sod/Tazobactam Sod (Zosyn 2.25 Gm In 0.9% 100 Ml) 2.25 gm in 100 mls @ 100 mls/hr IVPB Q6 [facility] PRN Reason: Protocol Stop: 04/07/17 00:01 Last Admin: 04/05/17 05:50 Dose: 100 mls/hr Linezolid (Zyvox 600mg/300ml D5w) 600 mg in 300 mls @ 200 mls/hr IVPB Q12 [facility] PRN Reason: Protocol Stop: 04/06/17 22:01 Last Admin: 04/05/17 10:47 Dose: 200 mls/hr Insulin Human Regular (Humulin R Med) 0 units SC ACHS [facility] PRN Reason: Protocol Last Admin: 04/05/17 11:51 Dose: Not Given Lactic Acid (Lac-Hydrin 12% Cream (140 G)) 0 ea TOP BID [facility] Lactulose (Enulose) 20 gm PO BID [facility] Last Admin: 04/05/17 10:45 Dose: 20 gm Oxycodone/Acetaminophen (Percocet 5/325 Mg Tab) 1 tab PO Q6H PRN PRN Reason: Pain, moderate (4-7) Stop: 04/08/17 08:49 Oxycodone/Acetaminophen (Percocet 5/325 Mg Tab) 2 tab PO Q6H PRN PRN Reason: Pain, severe (8-10) Stop: 04/08/17 08:49 Pantoprazole Sodium (Protonix Ec Tab) 20 mg PO DAILY [facility] Last Admin: 04/05/17 10:52 Dose: 20 mg Pregabalin (Lyrica) 50 mg PO TID [facility] Last Admin: 04/05/17 10:45 Dose: 50 mg Risperidone (Risperdal Tab) 1 mg PO HS [facility] PRN Reason: Protocol Sevelamer HCl (Renagel) 800 mg PO TID [facility] Last Admin: 04/05/17 10:45 Dose: 800 mg Silver Sulfadiazine (Silvadene 1% 25 Gm) 25 gm TP DAILY [facility] Last Admin: 04/03/17 11:44 Dose: Not Given Valsartan (Diovan) 320 mg PO DAILY [facility] Last Admin: 04/05/17 10:45 Dose: Not Given Vitamin B Complex/Vit C/Folic Acid (Nephro-Yudi) 1 tab PO DAILY [facility] Last Admin: 04/05/17 10:53 Dose: 1 tab - Labs Labs: 04/05/17 06:30 04/05/17 12:20 APTT 31.9 Seconds (25.1-36.5) 03/30/17 17:51 - Constitutional Appears: Non-toxic, No Acute Distress - Head Exam Head Exam: ATRAUMATIC - ENT Exam ENT Exam: Mucous Membranes Moist - Respiratory Exam Respiratory Exam: Clear to Ausculation Bilateral. absent: Rales, Rhonchi, Wheezes - Cardiovascular Exam Cardiovascular Exam: REGULAR RHYTHM, +S1, +S2. absent: Gallop, Rubs, Murmur - GI/Abdominal Exam GI & Abdominal Exam: Soft, Normal Bowel Sounds. absent: Distended, Firm, Guarding, Rigid, Tenderness, Organomegaly - Extremities Exam Additional comments: wounds bandaged on B/L feet - Neurological Exam Neurological Exam: Alert, Awake - Psychiatric Exam Psychiatric exam: Normal Affect, Normal Mood - Skin Skin Exam: Dry, Intact, Normal Color, Warm Assessment and Plan - Assessment and Plan (Free Text) Assessment: (1) ESRD (end stage renal disease) Assessment & Plan: Stable electrolytes. Patient will have dialysis today. Hypotensive blood pressure this morning. Will hold BP medications. Will also repeat blood cultures to rule out hypotension due to sepsis. (2) Heel ulceration Assessment & Plan: S/P left foot wound debridement. On zyvox and zosyn (correctly dosed for ESRD) ; (3) Anemia in ESRD (end-stage renal disease) Will monitor H&H (4) Chronic kidney disease-mineral and bone disorder Continue Cinacalcet Calcium stable (5) Hypertensive CKD, ESRD on dialysis Pt became hypotensive this morning. Will hold BP medications and continue to monitor All recs and management per Dr. Garcia
[2017-04-05] MEDS: Ammonium Lactate 12% Cream (140 g) TOP SCH ×2 (16:54→20:24)
--- NOTE | 2017-04-05 19:22 | MRI ---
EXAM: MR Left Lower Extremity Without Intravenous Contrast, Foot EXAM DATE/TIME: 04/05/2017 12:33 PM CLINICAL HISTORY: The patient age is 76 years old and is male; Signs and symptoms; Other: ? Osteo calcaneus; Patient HX: ? Osteo, left calcaneus. Limited study patient confused and moving. Salas b; Additional info: R/O osteomyelitis. ? Osteo, left calcaneus. Limited study patient confused and moving. Salas b Facility exam id and description: Mri footwoconl foot w/o contrast left TECHNIQUE: Multiplanar magnetic resonance images of the left foot without intravenous contrast. COMPARISON: No relevant prior studies available. FINDINGS: LIGAMENTS: There is mild heterogeneous signal intensity of the deltoid ligament, without a well-defined acute tear. Partial tear is difficult to exclude. There is no visual acute tear of the anterior and posterior talofibular ligaments. Minimal edema is seen adjacent to the anterior talofibular alignment. Lisfranc: No visualized acute tear. TENDONS: No visualized acute tear of the Achilles tendon. There is mild edema adjacent to the distal attachment of Achilles tendon. Flexor: No visualized acute tear. Extensor: No visualized acute tear. Peroneal: No visualized acute tear. Tibialis anterior: No visualized acute tear. Tibialis posterior: No visualized acute tear. Muscles: Muscle edema is visualized, suggestive of myositis. Fluid: There is a small subtalar joint effusion. A small calcaneal cyst is identified anteriorly. Sinus tarsi: Mild edema. Plantar fascia: Edema is seen adjacent to the plantar fascia, suggestive of plantar fasciitis or extension of the cellulitis within the heel pad. Bones/joints: There is a small cyst within the medial malleolus. No dislocation. There is dorsal spurring of the anterior talus. Soft tissues: There is soft tissue loss posterior to the calcaneus, which is likely postoperative or ulcerative. Edema is identified within the bone marrow the calcaneus posteriorly, concerning for osteomyelitis. Other findings: This study concentrates on the mid to hindfoot, with incomplete visualization of the forefoot. IMPRESSION: 1. There is soft tissue loss posterior to the calcaneus, which is likely postoperative or ulcerative. Edema is identified within the bone marrow the calcaneus posteriorly, concerning for osteomyelitis. 2. Muscle edema is visualized, suggestive of myositis. 3. Edema is seen adjacent to the plantar fascia, suggestive of plantar fasciitis or extension of the cellulitis within the heel pad. 4. There is a small subtalar joint effusion. 5. Additional findings described above.
--- NOTE | 2017-04-05 22:13 | PN ---
DATE: 04/05/2017 REASON FOR CONSULTATION: Followup preop evaluation, risk stratification of gangrene and possible amputation. SUBJECTIVE: The patient denies any chest pain, shortness of breath or any palpitation. Had dialysis yesterday, lying flat on the bed. OBJECTIVE: GENERAL: Not in apparent distress. VITAL SIGNS: Temperature afebrile, heart rate 40, and blood pressure 104/62. HEENT: PERRLA. Extraocular muscles intact. NECK: Supple. No carotid bruit or thyromegaly. CHEST: Clear to auscultation. HEART: S1, S2 regular. ABDOMEN: Soft. EXTREMITIES: Clubbing and cyanosis negative. LABORATORY DATA: Blood workup as follows: WBC 4.8, hemoglobin 8.8, hematocrit 27.7, and platelet count 62 manual. Chemistry shows sodium 137, potassium 3.0, chloride 101, carbon dioxide 26, anion gap of 13, BUN 20, and creatinine 4.8. IMPRESSION: End-stage renal disease, on dialysis, going for debridement of foot gangrene, possible amputation versus debridement; history of end-stage renal disease; severe peripheral arterial disease, last echocardiogram showed ejection fraction 70%; hypertension, hyperlipidemia, diastolic dysfunction, peripheral vascular arterial disease requiring debridement now or possible amputation. RECOMMENDATIONS: No acute contraindication for wound debridement. The patient is okay to go for surgery. Continue Coreg as well maintain the blood pressure. We will follow with you. Thank you Dr. Aguirre for providing us the opportunity in taking care of the patient, Parris Cabral. Ulysses Flaherty MD
[2017-04-05 22:46] LABS: RESULT Negative (Negative)
[2017-04-06] MEDS: Piperacillin/Tazobact 2.25gm 2.25 GM/100 ML BAG IVPB SCH ×4 (00:20→17:39)
--- NOTE | 2017-04-06 00:53 | PN ---
DATE: 04/05/2017 SUBJECTIVE: The patient is in bed, in no acute distress, nontoxic. The patient was seen early this morning in room ____. PHYSICAL EXAMINATION: VITAL SIGNS: Temperature is 97, blood pressure is 104/60, respiratory rate is 18, heart rate is 58. HEENT: Unremarkable. NECK: Supple. LUNGS: Had decreased breath sounds. HEART: Normal S1, S2. ABDOMEN: Soft, nontender. LABORATORY EXAMINATION: Reveals a white count of 4.8, hemoglobin of 8, platelets of 62. Coagulation is noted. Chemistries reveals a BUN of 20, creatinine of 4.8. Microbiology is noted, the right foot culture is growing Proteus mirabilis, MRSA, and Enterococcus faecalis. The left foot cultures are pending. The Proteus is pansensitive. The MRSA is MARIELA of 1 to vancomycin, Enterococcus faecalis sensitive to ampicillin and vancomycin, and review of orders reveal the patient to be on Zyvox and Zosyn. ASSESSMENT AND PLAN: This 76-year-old male with bilateral gangrenous heel ulcers; possible hemochromatosis; diabetic; hypertensive; dyslipidemia; renal cancer, status post partial nephrectomy; end-stage renal disease, on hemodialysis; with Proteus, methicillin-resistant staphylococcus aureus and Enterococcus faecalis from the heel cultures, status post debridement, and on Zyvox and Zosyn. We will follow closely with you. Long-term prognosis for this patient is poor. Ibrahima Lara MD
[2017-04-06] MEDS: Insulin Reg-MEDIUM-Coverage SC SCH ×4 (08:45→21:51)
--- NOTE | 2017-04-06 09:54 | CP.PCM.PN ---
Subjective - Date & Time of Evaluation Date of Evaluation: 04/06/17 Time of Evaluation: 09:48 - Subjective Subjective: Progress note for nephrology, Dr. azul Pt is seen and examined at bedside. No acute events overnight. pt underwent dialysis yesterday and tolerated it well. Denies having any CP, SOB, abd pain, N/V/D/C. Complains of LE pain. Objective - Vital Signs/Intake and Output Vital Signs (last 24 hours): Temp Pulse Resp BP Pulse Ox 99.3 F 79 20 139/60 98 04/06/17 09:46 04/06/17 09:46 04/06/17 09:46 04/06/17 09:46 04/06/17 09:46 Intake and Output: 04/06/17 04/06/17 06:59 18:59 Intake Total 360 Balance 360 - Medications Medications: Current Medications Acetaminophen (Tylenol 325mg Tab) 325 mg PO Q4H PRN PRN Reason: Fever >100.4 F Acetaminophen (Tylenol 325mg Tab) 650 mg PO Q6H PRN PRN Reason: Pain, Mild (1-3) Amlodipine Besylate (Norvasc) 10 mg PO DAILY [facility] Last Admin: 04/05/17 10:46 Dose: Not Given Carvedilol (Coreg) 6.25 mg PO BID [facility] Last Admin: 04/05/17 10:45 Dose: Not Given Cinacalcet (Sensipar) 30 mg PO DAILY [facility] Last Admin: 04/05/17 10:45 Dose: 30 mg Donepezil HCl (Aricept) 10 mg PO HS [facility] Last Admin: 04/05/17 21:58 Dose: 10 mg Hydralazine HCl (Apresoline) 100 mg PO Q8 [facility] Last Admin: 04/05/17 06:32 Dose: Not Given Piperacillin Sod/Tazobactam Sod (Zosyn 2.25 Gm In 0.9% 100 Ml) 2.25 gm in 100 mls @ 100 mls/hr IVPB Q6 [facility] PRN Reason: Protocol Stop: 04/07/17 00:01 Last Admin: 04/06/17 05:27 Dose: 100 mls/hr Linezolid (Zyvox 600mg/300ml D5w) 600 mg in 300 mls @ 200 mls/hr IVPB Q12 [facility] PRN Reason: Protocol Stop: 04/06/17 22:01 Last Admin: 04/05/17 21:58 Dose: 200 mls/hr Insulin Human Regular (Humulin R Med) 0 units SC ACHS [facility] PRN Reason: Protocol Last Admin: 04/06/17 08:45 Dose: Not Given Lactic Acid (Lac-Hydrin 12% Cream (140 G)) 0 ea TOP BID [facility] Last Admin: 04/05/17 20:24 Dose: 1 applic Lactulose (Enulose) 20 gm PO BID [facility] Last Admin: 04/05/17 17:37 Dose: 20 gm Oxycodone/Acetaminophen (Percocet 5/325 Mg Tab) 1 tab PO Q6H PRN PRN Reason: Pain, moderate (4-7) Stop: 04/08/17 08:49 Oxycodone/Acetaminophen (Percocet 5/325 Mg Tab) 2 tab PO Q6H PRN PRN Reason: Pain, severe (8-10) Stop: 04/08/17 08:49 Pantoprazole Sodium (Protonix Ec Tab) 20 mg PO DAILY [facility] Last Admin: 04/05/17 10:52 Dose: 20 mg Pregabalin (Lyrica) 50 mg PO TID [facility] Last Admin: 04/05/17 17:35 Dose: 50 mg Risperidone (Risperdal Tab) 1 mg PO HS [facility] PRN Reason: Protocol Sevelamer HCl (Renagel) 800 mg PO TID [facility] Last Admin: 04/05/17 17:35 Dose: 800 mg Silver Sulfadiazine (Silvadene 1% 25 Gm) 25 gm TP DAILY [facility] Last Admin: 04/03/17 11:44 Dose: Not Given Valsartan (Diovan) 320 mg PO DAILY [facility] Last Admin: 04/05/17 10:45 Dose: Not Given Vitamin B Complex/Vit C/Folic Acid (Nephro-Yudi) 1 tab PO DAILY [facility] Last Admin: 04/05/17 10:53 Dose: 1 tab - Labs Labs: 04/05/17 06:30 04/05/17 12:20 APTT 31.9 Seconds (25.1-36.5) 03/30/17 17:51 - Constitutional Appears: Non-toxic, No Acute Distress - Head Exam Head Exam: ATRAUMATIC - ENT Exam ENT Exam: Mucous Membranes Moist - Respiratory Exam Respiratory Exam: Clear to Ausculation Bilateral. absent: Accessory Muscle Use , Rales, Rhonchi, Wheezes, Respiratory Distress - Cardiovascular Exam Cardiovascular Exam: REGULAR RHYTHM, +S1, +S2. absent: Gallop, Rubs, Murmur - GI/Abdominal Exam GI & Abdominal Exam: Soft, Normal Bowel Sounds. absent: Firm, Guarding, Rigid, Tenderness, Organomegaly - Extremities Exam Extremities Exam: absent: Pedal Edema Additional comments: B/L feet bandaged - Neurological Exam Neurological Exam: Alert, Awake, Oriented x3 - Psychiatric Exam Psychiatric exam: Normal Affect, Normal Mood Assessment and Plan - Assessment and Plan (Free Text) Assessment: (1) ESRD (end stage renal disease) - Patient on dialysis TTS - Stable electrolytes. (2) Heel ulceration S/P left foot wound debridement POD #1. On zyvox and zosyn (correctly dosed for ESRD) Consider placing pt on Vancomycin and gentamicin to be given during dialysis. Wound cultures positive for NRSA, proteus, Enterococcus faecalis (3) Anemia in ESRD (end-stage renal disease) Will monitor H&H (4) Chronic kidney disease-mineral and bone disorder Continue Cinacalcet Calcium stable (5) Hypertensive CKD, ESRD on dialysis Will consider restarting BP meds All recs and management per Dr. Azul
[2017-04-06 10:21] LABS: BASO # 0.01 K/mm3 (0.0-2.0); BASO % 0.2 % (0.0-3.0); EOS # 0.1 (0.0-0.7); EOS % 0.9 % (1.5-5.0); GRAN # 5.35 (1.4-6.5); GRAN % 81.7 % (50.0-68.0); HEMATOCRIT 26.7 % (42.0-52.0); LYMPH # 0.7 (1.2-3.4); LYMPH % 10.6 % (22.0-35.0); MEAN CELL VOLUME 84.8 fl (80.0-105.0); MEAN CORPUSCULAR HEMOGLOBIN 27.3 pg (25.0-35.0); MEAN CORPUSCULAR HGB CONC 32.2 g/dl (31.0-37.0); MONO # 0.4 (0.1-0.6); MONO % 6.6 % (1.0-6.0); PLATELET COUNT 67 10^3/uL (120.0-450.0); RED CELL DISTRIBUTION WIDTH 16.4 % (11.5-14.5); WHITE BLOOD COUNT 6.5 10^3/ul (4.5-11.0)
[2017-04-06 10:30] LABS: ALB/GLOB RATIO 0.7 (1.1-1.8); BILIRUBIN,TOTAL 0.2 mg/dL (0.2-1.3); CALCIUM 8.7 mg/dL (8.4-10.5); POTASSIUM 3.3 mmol/L (3.6-5.0); TOTAL PROTEIN 6.7 g/dL (5.8-8.3)
--- NOTE | 2017-04-06 10:40 | CP.PCM.PN ---
<Carmel Perez - Last Filed: 04/06/17 10:35> Subjective - Date & Time of Evaluation Date of Evaluation: 04/06/17 Time of Evaluation: 07:40 - Subjective Subjective: Heme/Onc progress note for Dr Jackson's service. Patient is stable, no acute overnight events. Appears confused, but verbal, although incoherent. Objective - Vital Signs/Intake and Output Vital Signs (last 24 hours): Temp Pulse Resp BP Pulse Ox 99.3 F 79 20 139/60 98 04/06/17 09:46 04/06/17 09:46 04/06/17 09:46 04/06/17 09:46 04/06/17 09:46 Intake and Output: 04/06/17 04/06/17 06:59 18:59 Intake Total 360 Balance 360 - Medications Medications: Current Medications Acetaminophen (Tylenol 325mg Tab) 325 mg PO Q4H PRN PRN Reason: Fever >100.4 F Acetaminophen (Tylenol 325mg Tab) 650 mg PO Q6H PRN PRN Reason: Pain, Mild (1-3) Amlodipine Besylate (Norvasc) 10 mg PO DAILY [facility] Last Admin: 04/05/17 10:46 Dose: Not Given Carvedilol (Coreg) 6.25 mg PO BID [facility] Last Admin: 04/05/17 10:45 Dose: Not Given Cinacalcet (Sensipar) 30 mg PO DAILY [facility] Last Admin: 04/05/17 10:45 Dose: 30 mg Donepezil HCl (Aricept) 10 mg PO HS [facility] Last Admin: 04/05/17 21:58 Dose: 10 mg Hydralazine HCl (Apresoline) 100 mg PO Q8 [facility] Last Admin: 04/05/17 06:32 Dose: Not Given Piperacillin Sod/Tazobactam Sod (Zosyn 2.25 Gm In 0.9% 100 Ml) 2.25 gm in 100 mls @ 100 mls/hr IVPB Q6 [facility] PRN Reason: Protocol Stop: 04/07/17 00:01 Last Admin: 04/06/17 05:27 Dose: 100 mls/hr Linezolid (Zyvox 600mg/300ml D5w) 600 mg in 300 mls @ 200 mls/hr IVPB Q12 [facility] PRN Reason: Protocol Stop: 04/06/17 22:01 Last Admin: 04/05/17 21:58 Dose: 200 mls/hr Potassium Chloride (Potassium Chloride 10 Meq/100 Ml) 10 meq in 100 mls @ 50 mls/hr IVPB Q2H [facility] Stop: 04/06/17 14:44 Insulin Human Regular (Humulin R Med) 0 units SC ACHS [facility] PRN Reason: Protocol Last Admin: 04/06/17 08:45 Dose: Not Given Lactic Acid (Lac-Hydrin 12% Cream (140 G)) 0 ea TOP BID [facility] Last Admin: 04/05/17 20:24 Dose: 1 applic Lactulose (Enulose) 20 gm PO BID [facility] Last Admin: 04/05/17 17:37 Dose: 20 gm Oxycodone/Acetaminophen (Percocet 5/325 Mg Tab) 1 tab PO Q6H PRN PRN Reason: Pain, moderate (4-7) Stop: 04/08/17 08:49 Oxycodone/Acetaminophen (Percocet 5/325 Mg Tab) 2 tab PO Q6H PRN PRN Reason: Pain, severe (8-10) Stop: 04/08/17 08:49 Pantoprazole Sodium (Protonix Ec Tab) 20 mg PO DAILY [facility] Last Admin: 04/05/17 10:52 Dose: 20 mg Pregabalin (Lyrica) 50 mg PO TID [facility] Last Admin: 04/05/17 17:35 Dose: 50 mg Risperidone (Risperdal Tab) 1 mg PO HS [facility] PRN Reason: Protocol Sevelamer HCl (Renagel) 800 mg PO TID [facility] Last Admin: 04/05/17 17:35 Dose: 800 mg Silver Sulfadiazine (Silvadene 1% 25 Gm) 25 gm TP DAILY [facility] Last Admin: 04/03/17 11:44 Dose: Not Given Valsartan (Diovan) 320 mg PO DAILY [facility] Last Admin: 04/05/17 10:45 Dose: Not Given Vitamin B Complex/Vit C/Folic Acid (Nephro-Yudi) 1 tab PO DAILY [facility] Last Admin: 04/05/17 10:53 Dose: 1 tab - Labs Labs: 04/06/17 10:14 04/06/17 10:14 APTT 31.9 Seconds (25.1-36.5) 03/30/17 17:51 - Constitutional Appears: No Acute Distress, Confused, Chronically Ill - Head Exam Head Exam: ATRAUMATIC, NORMAL INSPECTION, NORMOCEPHALIC - Eye Exam Eye Exam: Normal appearance - ENT Exam ENT Exam: Mucous Membranes Moist - Neck Exam Neck Exam: Normal Inspection - Respiratory Exam Respiratory Exam: Clear to Ausculation Bilateral, NORMAL BREATHING PATTERN. absent: Rales, Rhonchi, Wheezes, Respiratory Distress, Stridor - Cardiovascular Exam Cardiovascular Exam: REGULAR RHYTHM, RRR, +S1, +S2 - GI/Abdominal Exam GI & Abdominal Exam: Soft, Normal Bowel Sounds. absent: Distended, Firm, Guarding, Rigid, Tenderness - Extremities Exam Extremities Exam: absent: Pedal Edema Additional comments: fei le with wound - in the heel, left heel with clean dressing. - Neurological Exam Neurological Exam: Alert, Awake Additional comments: Confused. - Psychiatric Exam Psychiatric exam: Flat Affect - Skin Skin Exam: Dry, Normal Color, Warm Assessment and Plan - Assessment and Plan (Free Text) Assessment: Mr Cabral is 76 y/o with multiple comorbidities from [place] whom presented to [facility] with diabetic foot, being treated for bilateral gangrenous heels, with wound cultures from left heel currently growing multiple organisms, ESRD on HD, h/o possible renal cell carcinoma, anemia of chronic disease, thrombocytopenia. Dr Jackson is consulted for anemia and thrombocytopenia. 1) Anemia is likely due to ESRD, patient is on high dose epo as outpatient- h/h stable 2) Thrombocytopenia r/o HIT, likely worsened by zyvox. 3) H/o chronic hep B 4) Renal cell carcinoma- spoke to patient's daughter, Misti at [phone] on 04/03/17 @1210, states she doesn't want patient to undergo surgery due to dementia and all the comorbidities. 5) Fei heel ulcerations with PVD. 6) Osteomyolitis of the left foot 7) Hypokalemia Plan: Platelet stable. Patient is on zyvox which can worsen the thrombocytopenia. Consider switching to vanco if sensitive. Pending HIT antibodies test. Continue to hold heparin sc and asa. Patient is being followed by ID, podiatry, and IR for PVD and for osteomyolitis. Nephrology is also following for ESRD. Medical management as per primary. Will replete the potassium. Hold lactulose. Palliative consulted for advance directives, and goal of care. Patient seen, examined and case discussed with Dr Jackson. <Chiquita Jackson P - Last Filed: 04/07/17 22:53> Objective - Vital Signs/Intake and Output Vital Signs (last 24 hours): Temp Pulse Resp BP Pulse Ox 97.7 F 63 18 156/72 H 99 04/07/17 07:30 04/07/17 17:50 04/07/17 07:30 04/07/17 17:50 04/07/17 07:30 Intake and Output: 04/07/17 04/08/17 18:59 06:59 Intake Total 360 Balance 360 - Medications Medications: Current Medications Acetaminophen (Tylenol 325mg Tab) 325 mg PO Q4H PRN PRN Reason: Fever >100.4 F Acetaminophen (Tylenol 325mg Tab) 650 mg PO Q6H PRN PRN Reason: Pain, Mild (1-3) Amlodipine Besylate (Norvasc) 10 mg PO DAILY [facility] Last Admin: 04/07/17 17:50 Dose: 10 mg Aspirin (Ecotrin) 81 mg PO DAILY [facility] Last Admin: 04/07/17 11:18 Dose: 81 mg Carvedilol (Coreg) 6.25 mg PO BID [facility] Last Admin: 04/07/17 17:50 Dose: 6.25 mg Cinacalcet (Sensipar) 30 mg PO DAILY [facility] Last Admin: 04/07/17 09:04 Dose: 30 mg Donepezil HCl (Aricept) 10 mg PO HS [facility] Last Admin: 04/07/17 21:23 Dose: 10 mg Hydralazine HCl (Apresoline) 100 mg PO Q8 [facility] Last Admin: 04/05/17 06:32 Dose: Not Given Insulin Human Regular (Humulin R Med) 0 units SC ACHS [facility] PRN Reason: Protocol Last Admin: 04/07/17 18:02 Dose: Not Given Lactic Acid (Lac-Hydrin 12% Cream (140 G)) 0 ea TOP BID [facility] Last Admin: 04/07/17 10:05 Dose: 1 applic Lactulose (Enulose) 20 gm PO BID [facility] Last Admin: 04/06/17 12:59 Dose: Not Given Pantoprazole Sodium (Protonix Ec Tab) 20 mg PO DAILY [facility] Last Admin: 04/07/17 09:04 Dose: 20 mg Pregabalin (Lyrica) 50 mg PO TID [facility] Last Admin: 04/07/17 17:49 Dose: 50 mg Risperidone (Risperdal Tab) 1 mg PO [facility] PRN Reason: Protocol Last Admin: 04/07/17 21:23 Dose: 1 mg Sevelamer HCl (Renagel) 800 mg PO TID [facility] Last Admin: 04/07/17 17:49 Dose: 800 mg Silver Sulfadiazine (Silvadene 1% 25 Gm) 25 gm TP DAILY [facility] Last Admin: 04/07/17 10:00 Dose: 25 gm Valsartan (Diovan) 320 mg PO DAILY [facility] Last Admin: 04/05/17 10:45 Dose: Not Given Vitamin B Complex/Vit C/Folic Acid (Nephro-Yudi) 1 tab PO DAILY [facility] Last Admin: 04/07/17 09:04 Dose: 1 tab - Labs Labs: 04/07/17 12:35 04/07/17 12:35 APTT 31.9 Seconds (25.1-36.5) 03/30/17 17:51 Attending/Attestation - Attestation I have personally seen and examined this patient.: Yes I have fully participated in the care of the patient.: Yes I have reviewed all pertinent clinical information, including history, physical exam and plan: Yes
[2017-04-06] MEDS: Silver Sulfadiazine 1% Cream (25 gm) TP SCH (12:59)
[2017-04-06] MEDS: Ammonium Lactate 12% Cream (140 g) TOP SCH ×2 (12:59→17:38)
[2017-04-06] MEDS: Pantoprazole 20 mg EC Tab PO SCH (13:00)
[2017-04-06] MEDS: Multivitamin Vitamin B Complex (Nephro-Vite) Tab PO SCH (13:00)
--- NOTE | 2017-04-06 13:02 | CT ---
PROCEDURE: CT HEAD WITHOUT CONTRAST. HISTORY: altered mental status COMPARISON: 05/25/2016 TECHNIQUE: Axial computed tomography images were obtained through the head/brain without intravenous contrast. Radiation dose: Total exam DLP = 725 mGy-cm. This CT exam was performed using one or more of the following dose reduction techniques: Automated exposure control, adjustment of the mA and/or kV according to patient size, and/or use of iterative reconstruction technique. FINDINGS: HEMORRHAGE: No intracranial hemorrhage. BRAIN: No mass effect or edema. No atrophy or chronic microvascular ischemic changes. VENTRICLES: Unremarkable. No hydrocephalus. CALVARIUM: Unremarkable. PARANASAL SINUSES: Unremarkable as visualized. No significant inflammatory changes. MASTOID AIR CELLS: Unremarkable as visualized. No inflammatory changes. OTHER FINDINGS: None. IMPRESSION: No acute findings
[2017-04-06] MEDS: Linezolid 600 mg in D5W 300 ml 600 MG/300 ML BAG IVPB SCH ×2 (13:03→21:50)
--- NOTE | 2017-04-06 13:13 | CP.PCM.PN ---
<Cristina Rosario - Last Filed: 04/06/17 13:06> Subjective - Date & Time of Evaluation Date of Evaluation: 04/06/17 Time of Evaluation: 13:07 - Subjective Subjective: Podiatry Progress Note - Dr. Carlson 76 year old male patient seen and evaluated at bedside POD#1 left heel wound debridement. Unable to obtain HPI--patient lethargic, did not follow commands. Objective - Vital Signs/Intake and Output Vital Signs (last 24 hours): Temp Pulse Resp BP Pulse Ox 99.3 F 79 20 139/60 98 04/06/17 09:46 04/06/17 09:46 04/06/17 09:46 04/06/17 09:46 04/06/17 09:46 Intake and Output: 04/06/17 04/06/17 06:59 18:59 Intake Total 360 Balance 360 - Medications Medications: Current Medications Acetaminophen (Tylenol 325mg Tab) 325 mg PO Q4H PRN PRN Reason: Fever >100.4 F Acetaminophen (Tylenol 325mg Tab) 650 mg PO Q6H PRN PRN Reason: Pain, Mild (1-3) Amlodipine Besylate (Norvasc) 10 mg PO DAILY [facility] Last Admin: 04/06/17 13:00 Dose: Not Given Carvedilol (Coreg) 6.25 mg PO BID [facility] Last Admin: 04/06/17 12:59 Dose: Not Given Cinacalcet (Sensipar) 30 mg PO DAILY [facility] Last Admin: 04/06/17 13:03 Dose: Not Given Donepezil HCl (Aricept) 10 mg PO HS [facility] Last Admin: 04/05/17 21:58 Dose: 10 mg Hydralazine HCl (Apresoline) 100 mg PO Q8 [facility] Last Admin: 04/05/17 06:32 Dose: Not Given Piperacillin Sod/Tazobactam Sod (Zosyn 2.25 Gm In 0.9% 100 Ml) 2.25 gm in 100 mls @ 100 mls/hr IVPB Q6 [facility] PRN Reason: Protocol Stop: 04/07/17 00:01 Last Admin: 04/06/17 12:39 Dose: 100 mls/hr Linezolid (Zyvox 600mg/300ml D5w) 600 mg in 300 mls @ 200 mls/hr IVPB Q12 [facility] PRN Reason: Protocol Stop: 04/06/17 22:01 Last Admin: 04/06/17 13:03 Dose: 200 mls/hr Insulin Human Regular (Humulin R Med) 0 units SC ACHS [facility] PRN Reason: Protocol Last Admin: 04/06/17 13:04 Dose: Not Given Lactic Acid (Lac-Hydrin 12% Cream (140 G)) 0 ea TOP BID [facility] Last Admin: 04/06/17 12:59 Dose: 1 applic Lactulose (Enulose) 20 gm PO BID [facility] Last Admin: 04/06/17 12:59 Dose: Not Given Oxycodone/Acetaminophen (Percocet 5/325 Mg Tab) 1 tab PO Q6H PRN PRN Reason: Pain, moderate (4-7) Stop: 04/08/17 08:49 Oxycodone/Acetaminophen (Percocet 5/325 Mg Tab) 2 tab PO Q6H PRN PRN Reason: Pain, severe (8-10) Stop: 04/08/17 08:49 Pantoprazole Sodium (Protonix Ec Tab) 20 mg PO DAILY [facility] Last Admin: 04/06/17 13:00 Dose: Not Given Pregabalin (Lyrica) 50 mg PO TID [facility] Last Admin: 04/06/17 13:00 Dose: Not Given Risperidone (Risperdal Tab) 1 mg PO HS [facility] PRN Reason: Protocol Sevelamer HCl (Renagel) 800 mg PO TID [facility] Last Admin: 04/06/17 13:00 Dose: Not Given Silver Sulfadiazine (Silvadene 1% 25 Gm) 25 gm TP DAILY [facility] Last Admin: 04/06/17 12:59 Dose: Not Given Valsartan (Diovan) 320 mg PO DAILY [facility] Last Admin: 04/05/17 10:45 Dose: Not Given Vitamin B Complex/Vit C/Folic Acid (Nephro-Yudi) 1 tab PO DAILY [facility] Last Admin: 04/06/17 13:00 Dose: Not Given - Labs Labs: 04/06/17 10:14 04/06/17 10:14 APTT 31.9 Seconds (25.1-36.5) 03/30/17 17:51 - Extremities Exam Additional comments: Offloading boots present to bilateral lower extremity Dressings to bilateral lower extremity appear clean/dry/intact. Packing in place to left heel. Vasc: Non-palpable pedal pulses bilateral, no edema noted, TG cool to cool, CFT < 4 sec to all digits Neuro: Unable to assess this visit Derm: Skin appears waxy, friable, and diffusely dry. Nails are elongated, dystrophic x 10. Surgical wound to posterior left heel appears to have a mixed fibronecrotic base, (+)probe to bone - tunneling noted at 12:00 extending approximately 6 cm distal; noted to have serosanguinous drainage and mild malodor, absent purulence. Ortho: no pain on palpation to bilateral heels - Neurological Exam Neurological Exam: Altered Assessment and Plan - Assessment and Plan (Free Text) Assessment: 76 year old male POD#1 left heel wound debridement (DOS: 04/05/17), clinical OM Plan: Patient seen and evaluated with attending, Dr. Carlson Afebrile, ESR 126 on 03/30/17, WBC 6.5, platelets decreased @ 67, glucose 74 Left foot WCx 03/31/17 - proteus mirabilis, MRSA, enterococcus faecalis f/u left foot WCx 04/05/17 (prelim) - gram negative lynsey Left foot MRI reviewed - edema within calcaneus concerning for OM Dressing changed to left foot Continue multipodus boots in bed Continue abx per ID - Johnny Mckeon Patient unable to be aroused, nonverbal - CLAIMS ASSISTANT called Podiatry will continue to monitor closely while in house <Phu Carlson - Last Filed: 04/06/17 17:27> Objective - Vital Signs/Intake and Output Vital Signs (last 24 hours): Temp Pulse Resp BP Pulse Ox 99.3 F 79 20 139/60 98 04/06/17 09:46 04/06/17 09:46 04/06/17 09:46 04/06/17 09:46 04/06/17 09:46 Intake and Output: 04/06/17 04/06/17 06:59 18:59 Intake Total 360 0 Balance 360 0 - Medications Medications: Current Medications Acetaminophen (Tylenol 325mg Tab) 325 mg PO Q4H PRN PRN Reason: Fever >100.4 F Acetaminophen (Tylenol 325mg Tab) 650 mg PO Q6H PRN PRN Reason: Pain, Mild (1-3) Amlodipine Besylate (Norvasc) 10 mg PO DAILY [facility] Last Admin: 04/06/17 13:00 Dose: Not Given Carvedilol (Coreg) 6.25 mg PO BID [facility] Last Admin: 04/06/17 12:59 Dose: Not Given Cinacalcet (Sensipar) 30 mg PO DAILY [facility] Last Admin: 04/06/17 13:03 Dose: Not Given Donepezil HCl (Aricept) 10 mg PO HS [facility] Last Admin: 04/05/17 21:58 Dose: 10 mg Hydralazine HCl (Apresoline) 100 mg PO Q8 [facility] Last Admin: 04/05/17 06:32 Dose: Not Given Piperacillin Sod/Tazobactam Sod (Zosyn 2.25 Gm In 0.9% 100 Ml) 2.25 gm in 100 mls @ 100 mls/hr IVPB Q6 [facility] PRN Reason: Protocol Stop: 04/07/17 00:01 Last Admin: 04/06/17 12:39 Dose: 100 mls/hr Linezolid (Zyvox 600mg/300ml D5w) 600 mg in 300 mls @ 200 mls/hr IVPB Q12 [facility] PRN Reason: Protocol Stop: 04/06/17 22:01 Last Admin: 04/06/17 13:03 Dose: 200 mls/hr Insulin Human Regular (Humulin R Med) 0 units SC ACHS [facility] PRN Reason: Protocol Last Admin: 04/06/17 13:04 Dose: Not Given Lactic Acid (Lac-Hydrin 12% Cream (140 G)) 0 ea TOP BID [facility] Last Admin: 04/06/17 12:59 Dose: 1 applic Lactulose (Enulose) 20 gm PO BID [facility] Last Admin: 04/06/17 12:59 Dose: Not Given Oxycodone/Acetaminophen (Percocet 5/325 Mg Tab) 1 tab PO Q6H PRN PRN Reason: Pain, moderate (4-7) Stop: 04/08/17 08:49 Oxycodone/Acetaminophen (Percocet 5/325 Mg Tab) 2 tab PO Q6H PRN PRN Reason: Pain, severe (8-10) Stop: 04/08/17 08:49 Pantoprazole Sodium (Protonix Ec Tab) 20 mg PO DAILY [facility] Last Admin: 04/06/17 13:00 Dose: Not Given Pregabalin (Lyrica) 50 mg PO TID [facility] Last Admin: 04/06/17 13:00 Dose: Not Given Risperidone (Risperdal Tab) 1 mg PO [facility] PRN Reason: Protocol Sevelamer HCl (Renagel) 800 mg PO TID [facility] Last Admin: 04/06/17 13:00 Dose: Not Given Silver Sulfadiazine (Silvadene 1% 25 Gm) 25 gm TP DAILY [facility] Last Admin: 04/06/17 12:59 Dose: Not Given Valsartan (Diovan) 320 mg PO DAILY [facility] Last Admin: 04/05/17 10:45 Dose: Not Given Vitamin B Complex/Vit C/Folic Acid (Nephro-Yudi) 1 tab PO DAILY [facility] Last Admin: 04/06/17 13:00 Dose: Not Given - Labs Labs: 04/06/17 10:14 04/06/17 15:47 APTT 31.9 Seconds (25.1-36.5) 03/30/17 17:51 Attending/Attestation - Attestation I have personally seen and examined this patient.: Yes I have fully participated in the care of the patient.: Yes I have reviewed all pertinent clinical information, including history, physical exam and plan: Yes
[2017-04-06 13:49] LABS: CALCIUM 8.7 mg/dL (8.4-10.5); POTASSIUM 3.4 mmol/L (3.6-5.0)
[2017-04-06 14:22] LABS: ARTERIAL BLOOD GAS HCO3 34.3 mmol/L (21-28); ARTERIAL BLOOD GAS O2 CAPACITY 11.2 mL/dl (16-24); ARTERIAL BLOOD GAS O2 CONTENT 10.9 ML/dl (15-23); ARTERIAL BLOOD HGB O2 SAT 95.3 % (95.0-98.0); CARBOXYHEMOGLOBIN 1.2 % (0.5-1.5); HHB 2.5 % (0-5)
--- NOTE | 2017-04-06 14:24 | PCM.RRT ---
<Radha Mojica - Last Filed: 04/06/17 16:14> SERVICE UNIT OPERATOR Nurse Assessment - Situation Date: 04/06/17 Time SERVICE UNIT OPERATOR was called: 11:29 SERVICE UNIT OPERATOR Responder Arrival Time: 11:30 SERVICE UNIT OPERATOR Location:: [address] [place] [address] Room Number: 563 SERVICE UNIT OPERATOR Reason for Call: Change in Mental Status SERVICE UNIT OPERATOR Called By: RN - IV IV Inserted during SERVICE UNIT OPERATOR?: No - Respiratory Oxygen Delivery Method: Room Air Received Nebulizer Treatments:: No Was the Patient Ventilated with Bag/Mask 100% O2?: No Secretions Suctioned?: No Was the Patient Intubated?: No Was the Patient Placed on a Ventilator?: No - Medication Medications Administered During SERVICE UNIT OPERATOR: d50 - Diagnostic Test Ordered EKG: No Chest X-Ray: No CT Scan: Yes Other Diagnostic Test Ordered: head - Stat Labs Ordered SERVICE UNIT OPERATOR Stat Labs Ordered: CBC, BMP SERVICE UNIT OPERATOR Other Labs Ordered: labs after potassium is given CPR started during SERVICE UNIT OPERATOR?: No - Vital Signs Vital Sign: Rapid Response Vital Sign Blood Pressure 156/64 Pulse Rate 78 Respiratory Rate 17 Temperature 99.1 F Oxygen Saturation 99 - Finger Stick Blood Glucose Finger Stick Blood Glucose: 72 - Mart Coma Scale Coma Scale Eye Opening: To pain Coma Scale Motor: Movement to pain stimulus Coma Scale Verbal: No response - Sepsis Screen Part 2 Sepsis Screen Part 2: Platelets under 80,000 - Time SERVICE UNIT OPERATOR Ended Time SERVICE UNIT OPERATOR Ended: 11:57 - Vital Signs at end of SERVICE UNIT OPERATOR Vital Signs at end of SERVICE UNIT OPERATOR: Rapid Response End Vital Sign Blood Pressure 152/67 Pulse Rate 78 Respiratory Rate 17 Temperature 99.1 F - Recommendations 5) SERVICE UNIT OPERATOR Level of Care Recommendations: Remain in current setting Notifications: Attending Physician - Neurological Status (Select all that apply): Lethargic - Respiratory Oxygen Delivery Method: Room Air - Constitutional Additional Comments: unarousable - Head Head Exam: ATRAUMATIC, NORMOCEPHALIC - Respiratory Exam Respiratory Exam: Clear to Ausculation Bilateral - Cardiovascular Exam Cardiovascular Exam: RRR, +S1, +S2 - GI/Abdominal Exam GI & Abdominal Exam: Soft, Normal Bowel Sounds - Neurological Exam Additional exam: not arousable, responds to sternal rub - Extremities Exam Additional comments: patient wearing multipodus boots Plan - Assessment of Findings&Treatment Plan Rapid response was called because patient was unresponsive to nurse. House doctor, resident, and attending went down to examine the patient immediately. Fingerstick blood glucose ordered, vital signs obtained, labs ordered, and patient placed on environmental monitoring specialist. Patient was found to have a finger stick blood glucose level of 70, blood pressure of 152/67, SpO2 of 100, 78 HR, monitor showed NSR; potassium was supplemented, ampule of d50 was given, environmental monitoring specialist showed NSR. CT head was performed and negative. CBC, CMP, Magnesium, and phosphorus order. PMD, Dr. Aguirre, was notified. Family at bedside was notified. Patient mental status remain unchanged. <Brandin Durham - Last Filed: 04/06/17 16:30> SERVICE UNIT OPERATOR Nurse Assessment - Vital Signs Vital Sign: Rapid Response Vital Sign Blood Pressure 156/64 Pulse Rate 78 Respiratory Rate 17 Temperature 99.1 F Oxygen Saturation 99 - Vital Signs at end of SERVICE UNIT OPERATOR Vital Signs at end of SERVICE UNIT OPERATOR: Rapid Response End Vital Sign Blood Pressure 152/67 Pulse Rate 78 Respiratory Rate 17 Temperature 99.1 F Attending/Attestation - Attestation I have personally seen and examined this patient.: Yes I have fully participated in the care of the patient.: Yes I have reviewed all pertinent clinical information, including history, physical exam and plan: Yes Notes (Text): 04/06/17 16:25 76 year old male with past medical history of diabetes, dementia and ESRD. SERVICE UNIT OPERATOR was called for decreased responsiveness. FS was 74 and patient was given D50 with improvement of FS to 156. Patient was arousable, opens eyes and withdraws to pain. Does not follow commands. Has history of dementia; unsure of baseline mental status. CT head and ammonia were ordered and negative. Monitor FS and mental status while on floor. Call placed to pmd. Brandin Durham MD Hospitalist.
--- NOTE | 2017-04-06 15:52 | PN ---
DATE: 04/06/2017 REASON FOR CONSULTATION AND FOLLOWUP: Preoperative evaluation and risk stratification of gangrene and possible amputation. SUBJECTIVE: The patient is lying flat in bed without chest pain, shortness of breath, or palpitation. PHYSICAL EXAMINATION: VITAL SIGNS: Blood pressure 139/60, respirations 18, pulse 79, and temperature 99.3. HEENT: Head is normocephalic. Eyes, pupils normal. Conjunctivae pale. NECK: JVP low. Carotid equal. THORAX: AP diameter normal. LUNGS: Clear. CARDIOVASCULAR: S1 and S2. EXTREMITIES: No clubbing. No cyanosis. The patient is status post surgery for gangrenous ulcer on the left foot heel. LABORATORY DATA: WBC 6.5, hemoglobin 8.6, hematocrit 26.7, and platelets 67. Sodium 139, potassium 3.3, BUN 11, and creatinine 3.2. AST and ALT normal. Total protein 6.7, albumin 2.7. DIAGNOSES: End-stage renal failure, on dialysis. The patient had surgery for gangrenous ulcer on the left foot heel. The patient had surgery yesterday. Severe peripheral vascular disease, hypertension, hyperlipidemia, diastolic dysfunction. Last echo showed left ventricular function normal with ejection fraction of 70%. PLAN: The patient is on linezolid 600 mg IV q. 12 hours; Renagel 800 mg p.o. t.i.d.; Protonix 20 daily; amlodipine 10 mg p.o. daily; Lyrica 50 mg p.o. t.i.d.; Diovan 320 mg p.o. daily, which is on hold at present; hydralazine 100 mg p.o q. 8 hours, also o hold; Coreg 6.25 p.o. b.i.d. The patient also on piperacillin and tazobactam 2.25 g IV q. 6 hours. The patient's potassium is 3.3 and potassium IV has been ordered by physician, Dr. Yunior Washington. We will stop that because this much dose might cause hyperkalemia, so we will stop this potassium therapy at present. We will follow with you. Ulysses Gama MD
[2017-04-06 16:09] LABS: CALCIUM 8.9 mg/dL (8.4-10.5); POTASSIUM 3.6 mmol/L (3.6-5.0)
--- NOTE | 2017-04-06 16:29 | CP.PCM.PN ---
Subjective - Date & Time of Evaluation Date of Evaluation: 04/06/17 Time of Evaluation: 11:55 - Subjective Subjective: PAtient was noted to be less reponsive this morning and an FARM MANAGEMENT ADVISER was called for the patient. He is coming from CT scan and is arousable, follows simple commands. No fevers overnight. Objective - Vital Signs/Intake and Output Vital Signs (last 24 hours): Temp Pulse Resp BP Pulse Ox 99.3 F 79 20 139/60 98 04/06/17 09:46 04/06/17 09:46 04/06/17 09:46 04/06/17 09:46 04/06/17 09:46 Intake and Output: 04/06/17 04/06/17 06:59 18:59 Intake Total 360 Balance 360 - Medications Medications: Current Medications Acetaminophen (Tylenol 325mg Tab) 325 mg PO Q4H PRN PRN Reason: Fever >100.4 F Acetaminophen (Tylenol 325mg Tab) 650 mg PO Q6H PRN PRN Reason: Pain, Mild (1-3) Amlodipine Besylate (Norvasc) 10 mg PO DAILY [facility] Last Admin: 04/05/17 10:46 Dose: Not Given Carvedilol (Coreg) 6.25 mg PO BID [facility] Last Admin: 04/05/17 10:45 Dose: Not Given Cinacalcet (Sensipar) 30 mg PO DAILY [facility] Last Admin: 04/05/17 10:45 Dose: 30 mg Donepezil HCl (Aricept) 10 mg PO HS [facility] Last Admin: 04/05/17 21:58 Dose: 10 mg Hydralazine HCl (Apresoline) 100 mg PO Q8 [facility] Last Admin: 04/05/17 06:32 Dose: Not Given Piperacillin Sod/Tazobactam Sod (Zosyn 2.25 Gm In 0.9% 100 Ml) 2.25 gm in 100 mls @ 100 mls/hr IVPB Q6 [facility] PRN Reason: Protocol Stop: 04/07/17 00:01 Last Admin: 04/06/17 05:27 Dose: 100 mls/hr Linezolid (Zyvox 600mg/300ml D5w) 600 mg in 300 mls @ 200 mls/hr IVPB Q12 [facility] PRN Reason: Protocol Stop: 04/06/17 22:01 Last Admin: 04/05/17 21:58 Dose: 200 mls/hr Potassium Chloride (Potassium Chloride 10 Meq/100 Ml) 10 meq in 100 mls @ 50 mls/hr IVPB Q2H [facility] Stop: 04/06/17 14:44 Insulin Human Regular (Humulin R Med) 0 units SC ACHS [facility] PRN Reason: Protocol Last Admin: 04/06/17 08:45 Dose: Not Given Lactic Acid (Lac-Hydrin 12% Cream (140 G)) 0 ea TOP BID [facility] Last Admin: 04/05/17 20:24 Dose: 1 applic Lactulose (Enulose) 20 gm PO BID [facility] Last Admin: 04/05/17 17:37 Dose: 20 gm Oxycodone/Acetaminophen (Percocet 5/325 Mg Tab) 1 tab PO Q6H PRN PRN Reason: Pain, moderate (4-7) Stop: 04/08/17 08:49 Oxycodone/Acetaminophen (Percocet 5/325 Mg Tab) 2 tab PO Q6H PRN PRN Reason: Pain, severe (8-10) Stop: 04/08/17 08:49 Pantoprazole Sodium (Protonix Ec Tab) 20 mg PO DAILY [facility] Last Admin: 04/05/17 10:52 Dose: 20 mg Pregabalin (Lyrica) 50 mg PO TID [facility] Last Admin: 04/05/17 17:35 Dose: 50 mg Risperidone (Risperdal Tab) 1 mg PO HS [facility] PRN Reason: Protocol Sevelamer HCl (Renagel) 800 mg PO TID [facility] Last Admin: 04/05/17 17:35 Dose: 800 mg Silver Sulfadiazine (Silvadene 1% 25 Gm) 25 gm TP DAILY [facility] Last Admin: 04/03/17 11:44 Dose: Not Given Valsartan (Diovan) 320 mg PO DAILY [facility] Last Admin: 04/05/17 10:45 Dose: Not Given Vitamin B Complex/Vit C/Folic Acid (Nephro-Yudi) 1 tab PO DAILY [facility] Last Admin: 04/05/17 10:53 Dose: 1 tab - Labs Labs: 04/06/17 10:14 04/06/17 10:14 APTT 31.9 Seconds (25.1-36.5) 03/30/17 17:51 - Constitutional Appears: Non-toxic, Chronically Ill - Head Exam Head Exam: NORMAL INSPECTION - Neck Exam Neck Exam: absent: Meningismus - Respiratory Exam Respiratory Exam: Decreased Breath Sounds - Cardiovascular Exam Cardiovascular Exam: +S1, +S2 - GI/Abdominal Exam GI & Abdominal Exam: Soft. absent: Tenderness Assessment and Plan - Assessment and Plan (Free Text) Plan: Assessment bilateral gangrenous heel ulcers S/P debridement, growing MRSA, PRoteus and E. faecalis; there is evidence of osteomyelitis on MRI of the left heel (calcaneus) change in sensorium, etiology to be determined Possible hemochromatosis DM HTN dyslipidemia ESRD on HD renal cancer S/P partial nephrectomy hepatitis B and C infection history of bullous pemphigoid CAD Plan continue Zyvox and Zosyn and would need 4-6 weeks of antibiotics; still awaiting final culture results from the left foot will monitor clinically follow up CT head results overall prognosis is poor
[2017-04-06 17:58] LABS: UFH SRA RESULT Negative (Negative)
--- NOTE | 2017-04-06 18:08 | PN ---
DATE: 04/05/2017 SUBJECTIVE: The patient is a 76-year-old male status post MRI of his foot. He is in the bed, comfortable, no distress. He responds to call and his name. The patient has no chest pain. No shortness of breath. The patient otherwise is eating, tolerating diet and on hemodialysis. PHYSICAL EXAMINATION: VITAL SIGNS: As follows; temperature 97.6, heart rate 47, blood pressure 110/56, respirations 18, saturating 100%. HEAD AND NECK: Normal. No JVD. No thyromegaly. CHEST: Clear, good air entry bilaterally. CARDIAC: First sound and second sound normal. ABDOMEN: Soft, nontender. EXTREMITIES: There is no edema. Both legs have heel cushions and covered. The patient has calcaneal necrotic area and otherwise, the patient moves all extremities. NEUROLOGIC: He does some dementia. Intermittently, he gets confused. He responds when I call his name and seems stable. LABORATORY STUDY: CBC on 04/05/2017, white count 4.8, hemoglobin 8.8, hematocrit 27.7, and platelets 62. On manual examination, it is 70. Chemistry on 04/05/2017 shows the following: His sodium 136, potassium is 3.8, chloride 101, bicarb 26, BUN 20, creatinine 4.8. His liver function test within normal range. His phosphorus 5.7, calcium 9.8, magnesium 2, blood sugar 101. I reviewed the MRI results. The patient also had MRI on the day which shows possible osteomyelitis, cellulitis, and possible postoperative ulcerations, edema and bone marrow edema is identified in the calcaneal area. That is the foot MRI that is done on 04/05/2017, left lower extremity MRI without contrast. IMPRESSION AND PLAN: 1. Left leg cellulitis status post revascularizations by Dr. Jed Griffith, status post surgical evaluation by Dr. Carlson. We will continue current management. Currently, he is in Zosyn 2.25 g intravenous q.6 hours and also Zyvox 600 mg intravenous twice a day. The patient seen by Infectious Disease consult, Dr. Lara. 2. Chronic renal failure. We will continue hemodialysis as per cement finisher. The patient does have dementia and agitation. Continue Risperdal p.r.n. 1 mg at bedtime. Seems tolerating it well. The patient was seen by Psychiatry. Evaluation has been requested. 3. Hypertension, stable blood pressure. Continued current medications. We will put holding parameters for systolic less than 100 or 110. We will continue current medications. 4. The patient complained of leg pain. The patient currently on Percocet p.r.n. 5. Dementia with behavioral changes plus medications possibly related to his mental status changes. We will monitor closely. Continue current therapy and we will follow up clinically 6. The patient does have chronic renal failure. He does also has chronic hepatitis B. Not a candidate for therapy. The patient also has a renal mass that has been discussed before. No biopsy. So, we will continue to monitor this patient comfortably. May be, the patient will do palliative care, will help the patient's condition. We will consult Palliative Care, and we will continue current therapy. 7. Anemia, thrombocytopenia. Hematology consult with Dr. Jackson, seems chronic. We will follow up as inpatient status post transfusion 1 unit of packed red blood cells. Continue current therapy. Barber Aguirre MD
[2017-04-07] MEDS: Piperacillin/Tazobact 2.25gm 2.25 GM/100 ML BAG IVPB SCH (00:02)
[2017-04-07] MEDS: Insulin Reg-MEDIUM-Coverage SC SCH ×3 (08:47→18:02)
[2017-04-07] MEDS: Pantoprazole 20 mg EC Tab PO SCH (09:04)
[2017-04-07] MEDS: Multivitamin Vitamin B Complex (Nephro-Vite) Tab PO SCH (09:04)
[2017-04-07] MEDS: Silver Sulfadiazine 1% Cream (25 gm) TP SCH (10:00)
[2017-04-07] MEDS: Ammonium Lactate 12% Cream (140 g) TOP SCH ×2 (10:05→18:30)
[2017-04-07] MEDS ORDERED: Darbepoetin Alfa 100 mcg/ml Inj IVP ONE (12:54)
[2017-04-07 12:59] LABS: BASO # 0.02 K/mm3 (0.0-2.0); BASO % 0.3 % (0.0-3.0); EOS # 0.1 (0.0-0.7); EOS % 1.9 % (1.5-5.0); GRAN # 4.78 (1.4-6.5); HEMATOCRIT 24.4 % (42.0-52.0); LYMPH # 0.8 (1.2-3.4); LYMPH % 13.2 % (22.0-35.0); MEAN CELL VOLUME 84.4 fl (80.0-105.0); MEAN CORPUSCULAR HEMOGLOBIN 26.6 pg (25.0-35.0); MEAN CORPUSCULAR HGB CONC 31.6 g/dl (31.0-37.0); MONO # 0.5 (0.1-0.6); MONO % 8.6 % (1.0-6.0); PLATELET COUNT 58 10^3/uL (120.0-450.0); RED CELL DISTRIBUTION WIDTH 16.4 % (11.5-14.5); WHITE BLOOD COUNT 6.3 10^3/ul (4.5-11.0)
[2017-04-07 13:17] LABS: ALB/GLOB RATIO 0.7 (1.1-1.8); BILIRUBIN,TOTAL 0.2 mg/dL (0.2-1.3); CALCIUM 9.1 mg/dL (8.4-10.5); PHOSPHOROUS 5.4 mg/dL (2.5-4.5); POTASSIUM 3.2 mmol/L (3.6-5.0); TOTAL PROTEIN 6.4 g/dL (5.8-8.3)
--- NOTE | 2017-04-07 14:21 | PN ---
DATE: SUBJECTIVE: A 76-year-old male seen at bedside with his stepdaughter present for continued evaluation and management of a gangrenous nonhealing left calcaneal wound, which shows positive osteomyelitis on MRI. The patient is status post day #2 of wound debridement on the left heel, which has increased in severity and has gotten worse. The patient is lethargic, unable to answer questions, does not recognize his stepdaughter present at bedside. LABORATORY FINDINGS: Reveal white count of 6.5, hemoglobin of 8.6, hematocrit of 26.7, and platelet count of 67. Microbiology report of the left foot taken in the OR reveals gram-negative lynsey growth. MRI taken of the left heel shows bone marrow edema, which is consistent with osteomyelitis. OBJECTIVE: Nonpalpable pedal pulses noted bilaterally. Nonpalpable popliteal pulses noted bilaterally. The patient is unable to detect 5.7 g monofilament wire testing bilaterally. Left heel presents with a full-thickness foul-smelling gangrenous necrotic and fibrotic ulceration that now reveals exposed calcaneal bone. There is noted to be no purulence, however, there is malodor. Entire forefoot is ischemic in nature and dusky in appearance. Right heel presents with a deep tissue injury, but this remains closed with no drainage present. ASSESSMENT: Nonhealing left heel ulceration which now shows exposed calcaneal bone and osteomyelitis is present, confirmed by MRI. PLAN: The patient's wound was cleansed with normal sterile saline. We will apply Betadine solution and a dry sterile dressing to the left heel. We will cleanse the right heel with normal sterile saline, apply Xeroform, and a dry sterile dressing. It is imperative that we offload both heels using the Multi-Podus boots at bedside. At this point, the patient's left heel has progressed significantly in the negative direction since surgery 2 days ago and has gotten much worse. His lower extremity perfusion just is not adequate for wound to heal. Below-knee amputation is recommended. I spoke with his daughter this morning, Misti and explained the unfortunate circumstances, and despite vascular intervention and aggressive wound care management, her father's left heel has not progressed in a positive manner. She stated that she will think it over this weekend as to whether the below-knee amputation will be performed or not. I expressed my concerns of sepsis and possible if the wound is kept open and allowed to fester. Called Dr. Aguirre and informed him of the situation. We will continue with the Zosyn and Zyvox as per Infectious Disease. Recommend Dr. Katia Pedraza if below-knee amputation option is pursued. Phu Carlson DPM [email or web address]
--- NOTE | 2017-04-07 15:34 | PN ---
DATE: REASON FOR CONSULTATION AND FOLLOWUP: Preop evaluation and risk stratification of gangrene and possible amputation. SUBJECTIVE: The patient denies any chest pain, shortness of breath or any palpitation. Lying flat in the bed. PHYSICAL EXAMINATION: VITAL SIGNS: As follows; temperature afebrile, heart rate 60, and blood pressure 147/61. HEENT: PERRLA. Extraocular muscles intact. NECK: Supple. No carotid bruits or thyromegaly. CHEST: Clear to auscultation. HEART: S1 and S2 regular. ABDOMEN: Soft. EXTREMITIES: Clubbing and cyanosis negative. LABORATORY DATA: Blood workup as follows; WBC 6.5, hemoglobin 8.6, hematocrit 26.7, and platelet count 67. Chemistry shows sodium 130, potassium 3.6, chloride 98, bicarbonate 33, anion gap of 10, BUN 12, and creatinine 3.6. MRI of the foot was done day before yesterday that shows there is a loss of soft tissue to the calcaneus likely postoperative or ulcerative edema noted, myositis, nonhealing ulcer status post debridement of nonhealing ulcer of the left foot. IMPRESSION: End-stage renal disease on dialysis, bedridden, peripheral arterial disease, gangrenous ulcer of left foot heel, the patient had debridement yesterday, hypertension, and hyperlipidemia. Echo shows preserved left ventricular ejection fraction of 70% with diastolic dysfunction. RECOMMENDATIONS: Continue dialysis, continue beta-neo, and continue aggressive control of blood pressure, the patient is on valsartan. Continue aspirin. We will resume back aspirin as the patient is not on aspirin. Continue antihypertensive medication. We will put 81 mg of aspirin daily. Monitor H and H, if it goes below 8, consider packed RBC transfusion. Ulysses Flaherty MD
--- NOTE | 2017-04-07 18:11 | CP.PCM.PN ---
Subjective - Date & Time of Evaluation Date of Evaluation: 04/07/17 Time of Evaluation: 12:25 - Subjective Subjective: Comfortable, no fevers. Objective - Vital Signs/Intake and Output Vital Signs (last 24 hours): Temp Pulse Resp BP Pulse Ox 97.7 F 55 L 18 158/70 H 99 04/07/17 07:30 04/07/17 07:30 04/07/17 07:30 04/07/17 07:30 04/07/17 07:30 Intake and Output: 04/07/17 04/07/17 06:59 18:59 Intake Total 300 Balance 300 - Medications Medications: Current Medications Acetaminophen (Tylenol 325mg Tab) 325 mg PO Q4H PRN PRN Reason: Fever >100.4 F Acetaminophen (Tylenol 325mg Tab) 650 mg PO Q6H PRN PRN Reason: Pain, Mild (1-3) Amlodipine Besylate (Norvasc) 10 mg PO DAILY [facility] Last Admin: 04/06/17 13:00 Dose: Not Given Aspirin (Ecotrin) 81 mg PO DAILY [facility] Carvedilol (Coreg) 6.25 mg PO BID [facility] Last Admin: 04/06/17 17:30 Dose: Not Given Cinacalcet (Sensipar) 30 mg PO DAILY [facility] Last Admin: 04/07/17 09:04 Dose: 30 mg Donepezil HCl (Aricept) 10 mg PO HS [facility] Last Admin: 04/06/17 21:51 Dose: 10 mg Hydralazine HCl (Apresoline) 100 mg PO Q8 [facility] Last Admin: 04/05/17 06:32 Dose: Not Given Dextrose (Dextrose 10% In Water) 500 mls @ 30 mls/hr IV .[id number] [facility] Stop: 04/07/17 21:15 Last Admin: 04/06/17 21:49 Dose: 30 mls/hr Insulin Human Regular (Humulin R Med) 0 units SC ACHS [facility] PRN Reason: Protocol Last Admin: 04/07/17 08:47 Dose: Not Given Lactic Acid (Lac-Hydrin 12% Cream (140 G)) 0 ea TOP BID [facility] Last Admin: 04/06/17 17:38 Dose: 1 applic Lactulose (Enulose) 20 gm PO BID [facility] Last Admin: 04/06/17 12:59 Dose: Not Given Pantoprazole Sodium (Protonix Ec Tab) 20 mg PO DAILY [facility] Last Admin: 04/07/17 09:04 Dose: 20 mg Pregabalin (Lyrica) 50 mg PO TID [facility] Last Admin: 04/07/17 09:04 Dose: 50 mg Risperidone (Risperdal Tab) 1 mg PO HS [facility] PRN Reason: Protocol Last Admin: 04/06/17 21:51 Dose: 1 mg Sevelamer HCl (Renagel) 800 mg PO TID [facility] Last Admin: 04/07/17 09:04 Dose: 800 mg Silver Sulfadiazine (Silvadene 1% 25 Gm) 25 gm TP DAILY [facility] Last Admin: 04/06/17 12:59 Dose: Not Given Valsartan (Diovan) 320 mg PO DAILY [facility] Last Admin: 04/05/17 10:45 Dose: Not Given Vitamin B Complex/Vit C/Folic Acid (Nephro-Yudi) 1 tab PO DAILY [facility] Last Admin: 04/07/17 09:04 Dose: 1 tab - Labs Labs: 04/06/17 10:14 04/06/17 15:47 APTT 31.9 Seconds (25.1-36.5) 03/30/17 17:51 - Constitutional Appears: Non-toxic - Head Exam Head Exam: NORMAL INSPECTION - Respiratory Exam Respiratory Exam: Decreased Breath Sounds - Cardiovascular Exam Cardiovascular Exam: +S1, +S2 - GI/Abdominal Exam GI & Abdominal Exam: Soft. absent: Tenderness Assessment and Plan - Assessment and Plan (Free Text) Plan: Assessment bilateral gangrenous heel ulcers S/P debridement, growing MRSA, PRoteus and E. faecalis; there is evidence of osteomyelitis on MRI of the left heel (calcaneus) change in sensorium, etiology to be determined Possible hemochromatosis DM HTN dyslipidemia ESRD on HD renal cancer S/P partial nephrectomy hepatitis B and C infection history of bullous pemphigoid CAD Plan continue Zyvox and Zosyn and would need 4-6 weeks of antibiotics; still awaiting final culture results from the left foot will monitor clinically CT head does not show acute findings overall prognosis is poor
--- NOTE | 2017-04-07 22:53 | CP.PCM.PN ---
Objective - Vital Signs/Intake and Output Vital Signs (last 24 hours): Temp Pulse Resp BP Pulse Ox 97.7 F 63 18 156/72 H 99 04/07/17 07:30 04/07/17 17:50 04/07/17 07:30 04/07/17 17:50 04/07/17 07:30 Intake and Output: 04/07/17 04/08/17 18:59 06:59 Intake Total 360 Balance 360 - Medications Medications: Current Medications Acetaminophen (Tylenol 325mg Tab) 325 mg PO Q4H PRN PRN Reason: Fever >100.4 F Acetaminophen (Tylenol 325mg Tab) 650 mg PO Q6H PRN PRN Reason: Pain, Mild (1-3) Amlodipine Besylate (Norvasc) 10 mg PO DAILY [facility] Last Admin: 04/07/17 17:50 Dose: 10 mg Aspirin (Ecotrin) 81 mg PO DAILY [facility] Last Admin: 04/07/17 11:18 Dose: 81 mg Carvedilol (Coreg) 6.25 mg PO BID [facility] Last Admin: 04/07/17 17:50 Dose: 6.25 mg Cinacalcet (Sensipar) 30 mg PO DAILY [facility] Last Admin: 04/07/17 09:04 Dose: 30 mg Donepezil HCl (Aricept) 10 mg PO HS [facility] Last Admin: 04/07/17 21:23 Dose: 10 mg Hydralazine HCl (Apresoline) 100 mg PO Q8 [facility] Last Admin: 04/05/17 06:32 Dose: Not Given Insulin Human Regular (Humulin R Med) 0 units SC ACHS [facility] PRN Reason: Protocol Last Admin: 04/07/17 18:02 Dose: Not Given Lactic Acid (Lac-Hydrin 12% Cream (140 G)) 0 ea TOP BID [facility] Last Admin: 04/07/17 10:05 Dose: 1 applic Lactulose (Enulose) 20 gm PO BID [facility] Last Admin: 04/06/17 12:59 Dose: Not Given Pantoprazole Sodium (Protonix Ec Tab) 20 mg PO DAILY [facility] Last Admin: 04/07/17 09:04 Dose: 20 mg Pregabalin (Lyrica) 50 mg PO TID [facility] Last Admin: 04/07/17 17:49 Dose: 50 mg Risperidone (Risperdal Tab) 1 mg PO HS [facility] PRN Reason: Protocol Last Admin: 04/07/17 21:23 Dose: 1 mg Sevelamer HCl (Renagel) 800 mg PO TID [facility] Last Admin: 04/07/17 17:49 Dose: 800 mg Silver Sulfadiazine (Silvadene 1% 25 Gm) 25 gm TP DAILY [facility] Last Admin: 04/07/17 10:00 Dose: 25 gm Valsartan (Diovan) 320 mg PO DAILY [facility] Last Admin: 04/05/17 10:45 Dose: Not Given Vitamin B Complex/Vit C/Folic Acid (Nephro-Yudi) 1 tab PO DAILY [facility] Last Admin: 04/07/17 09:04 Dose: 1 tab - Labs Labs: 04/07/17 12:35 04/07/17 12:35 APTT 31.9 Seconds (25.1-36.5) 03/30/17 17:51 Assessment and Plan (1) ESRD (end stage renal disease) Status: Chronic (2) Heel ulceration Status: Acute (3) Anemia in ESRD (end-stage renal disease) Status: Acute (4) Chronic kidney disease-mineral and bone disorder Status: Acute (5) Hypertensive CKD, ESRD on dialysis Status: Acute
[2017-04-08] MEDS: Insulin Reg-MEDIUM-Coverage SC SCH ×4 (08:30→22:25)
[2017-04-08] MEDS ORDERED: Linezolid 600 mg in D5W 300 ml 600 MG/300 ML BAG IVPB SCH (10:00)
[2017-04-08] MEDS: Ammonium Lactate 12% Cream (140 g) TOP SCH ×2 (10:00→18:15)
[2017-04-08 10:09] LABS: HEMATOCRIT 29.4 % (42.0-52.0); MEAN CORPUSCULAR HEMOGLOBIN 26.9 pg (25.0-35.0); MEAN CORPUSCULAR HGB CONC 31.6 g/dl (31.0-37.0); PLATELET COUNT 62 10^3/uL (120.0-450.0); RED CELL DISTRIBUTION WIDTH 16.2 % (11.5-14.5); WHITE BLOOD COUNT 5.7 10^3/ul (4.5-11.0)
[2017-04-08] MEDS: Piperacillin/Tazobact 2.25gm 2.25 GM/100 ML BAG IVPB SCH ×3 (10:14→18:03)
[2017-04-08] MEDS: Pantoprazole 20 mg EC Tab PO SCH (10:15)
[2017-04-08] MEDS: Multivitamin Vitamin B Complex (Nephro-Vite) Tab PO SCH (10:15)
[2017-04-08] MEDS: Silver Sulfadiazine 1% Cream (25 gm) TP SCH (10:16)
[2017-04-08 10:45] LABS: ALB/GLOB RATIO 0.7 (1.1-1.8); BILIRUBIN,TOTAL 0.3 mg/dL (0.2-1.3); CALCIUM 9.4 mg/dL (8.4-10.5); POTASSIUM 3.2 mmol/L (3.6-5.0)
[2017-04-08] MEDS ORDERED: Piperacillin/Tazobact 2.25gm 2.25 GM/100 ML BAG IVPB SCH (12:00)
--- NOTE | 2017-04-08 12:44 | CP.PCM.PN ---
Subjective - Date & Time of Evaluation Date of Evaluation: 04/08/17 Time of Evaluation: 12:40 - Subjective Subjective: 76 year old male seen at bedside two days s/p left heel ulcer debridement. Patient suffers from dementia and was unable to effectively communicate how he was feeling at this time. Per Dr. Carlson pt is for BKA of left lower extremity. Dr. Carlson has spoken with vascular team about scheduling BKA and has also explained the situation to patient's family who agrees with the plan of action. Objective - Vital Signs/Intake and Output Vital Signs (last 24 hours): Temp Pulse Resp BP Pulse Ox 97.5 F L 89 21 145/52 L 94 L 04/08/17 08:12 04/08/17 08:12 04/08/17 08:12 04/08/17 10:16 04/08/17 07:25 Intake and Output: 04/08/17 04/08/17 06:59 18:59 Intake Total 0 280 Balance 0 280 - Medications Medications: Current Medications Acetaminophen (Tylenol 325mg Tab) 325 mg PO Q4H PRN PRN Reason: Fever >100.4 F Acetaminophen (Tylenol 325mg Tab) 650 mg PO Q6H PRN PRN Reason: Pain, Mild (1-3) Amlodipine Besylate (Norvasc) 10 mg PO DAILY [facility] Last Admin: 04/08/17 10:16 Dose: 10 mg Aspirin (Ecotrin) 81 mg PO DAILY [facility] Last Admin: 04/08/17 10:15 Dose: 81 mg Carvedilol (Coreg) 6.25 mg PO BID [facility] Last Admin: 04/08/17 10:15 Dose: 6.25 mg Cinacalcet (Sensipar) 30 mg PO DAILY [facility] Last Admin: 04/08/17 10:15 Dose: 30 mg Donepezil HCl (Aricept) 10 mg PO HS [facility] Last Admin: 04/07/17 21:23 Dose: 10 mg Hydralazine HCl (Apresoline) 100 mg PO Q8 [facility] Last Admin: 04/05/17 06:32 Dose: Not Given Linezolid (Zyvox 600mg/300ml D5w) 600 mg in 300 mls @ 200 mls/hr IVPB Q12 [facility] PRN Reason: Protocol Stop: 04/16/17 10:01 Last Admin: 04/08/17 10:14 Dose: 200 mls/hr Piperacillin Sod/Tazobactam Sod (Zosyn 2.25 Gm In 0.9% 100 Ml) 2.25 gm in 100 mls @ 100 mls/hr IVPB Q6 [facility] PRN Reason: Protocol Stop: 04/23/17 09:54 Last Admin: 04/08/17 12:18 Dose: Not Given Insulin Human Regular (Humulin R Med) 0 units SC ACHS [facility] PRN Reason: Protocol Last Admin: 04/08/17 11:45 Dose: Not Given Lactic Acid (Lac-Hydrin 12% Cream (140 G)) 0 ea TOP BID [facility] Last Admin: 04/08/17 10:00 Dose: 1 applic Lactulose (Enulose) 20 gm PO BID [facility] Last Admin: 04/06/17 12:59 Dose: Not Given Pantoprazole Sodium (Protonix Ec Tab) 20 mg PO DAILY [facility] Last Admin: 04/08/17 10:15 Dose: 20 mg Pregabalin (Lyrica) 50 mg PO TID [facility] Last Admin: 04/08/17 10:16 Dose: 50 mg Risperidone (Risperdal Tab) 1 mg PO HS [facility] PRN Reason: Protocol Last Admin: 04/07/17 21:23 Dose: 1 mg Sevelamer HCl (Renagel) 800 mg PO TID [facility] Last Admin: 04/08/17 10:15 Dose: 800 mg Silver Sulfadiazine (Silvadene 1% 25 Gm) 25 gm TP DAILY [facility] Last Admin: 04/08/17 10:16 Dose: 25 gm Valsartan (Diovan) 320 mg PO DAILY [facility] Last Admin: 04/05/17 10:45 Dose: Not Given Vitamin B Complex/Vit C/Folic Acid (Nephro-Yudi) 1 tab PO DAILY [facility] Last Admin: 04/08/17 10:15 Dose: 1 tab - Labs Labs: 04/08/17 09:55 04/08/17 09:55 APTT 31.9 Seconds (25.1-36.5) 03/30/17 17:51 - Constitutional Appears: Well, Non-toxic, No Acute Distress - Extremities Exam Additional comments: Offloading boots present to bilateral lower extremity Dressings to bilateral lower extremity appear clean/dry/intact Vasc: Non-palpable pedal pulses bilateral, no edema noted, TG cool to cool, CFT < 4 sec to all digits Neuro: Unable to assess this visit Derm: Skin appears waxy, friable, and diffusely dry. Nails are elongated, dystrophic x 10. Surgical wound to posterior left heel appears to have a mixed fibronecrotic base, (+)probe to bone - tunneling noted at 12:00 extending approximately 6 cm distal; noted to have serosanguinous drainage and mild malodor, absent purulence. Ortho: no pain on palpation to bilateral heels - Neurological Exam Neurological Exam: Alert, Awake - Psychiatric Exam Psychiatric exam: Flat Affect Assessment and Plan - Assessment and Plan (Free Text) Assessment: 76 year old male seen two days s/p left heel ulcer debridement Plan: Patient seen and evaluated at bedside Plan discussed with attending Dr. Carlson No leukocytosis, afebrile Left foot cleansed with normal saline and dressed with xeroform, ABD, DSD Both feet offloaded with multipodus boots Continue abx per ID Patient for BKA of LLE- Dr. Carlson to coordinate with vascular team Podiatry will continue to follow while patient in house
--- NOTE | 2017-04-08 16:55 | PN ---
DATE: REASON FOR CONSULTATION AND FOLLOWUP: Preop evaluation and risk stratification for debridement of ulcer on the heel, possible amputation questionable. SUBJECTIVE: The patient denies any chest pain, shortness of breath or any palpitations. Lying flat on the bed and getting the IV access. PHYSICAL EXAMINATION: GENERAL: Not in apparent distress. VITAL SIGNS: As follows; temperature afebrile, heart rate 89, and blood pressure 145/52. HEENT: PERRLA. Extraocular muscles intact. NECK: Supple. No carotid bruits, no thyromegaly. CHEST: Clear to auscultation. HEART: S1 and S2 regular. ABDOMEN: Soft. EXTREMITIES: Clubbing and cyanosis negative. LABORATORY DATA: Blood workup as follows; WBC 5.3, hemoglobin , hematocrit 29.4, and platelet count 62. Chemistry shows sodium 141, potassium 3.2, chloride 102, bicarbonate 38, anion gap of 12, BUN 12, and creatinine 3.2. IMPRESSION: End-stage renal disease on dialysis, peripheral arterial disease, hypertension, ulcer of the heel and non-healing ulcer status post debridement, left foot ulcer status post debridement, and hyperlipidemia. Echo shows 70%, diastolic dysfunction. RECOMMENDATIONS: Continue dialysis. Continue beta-neo, this will control her blood pressure, continue baby aspirin. Monitor H and H closely. Today's H is 9.3. Consider packed RBC transfusion if it goes below 8 to prevent cardiac decompensation as well as ulcer of the heel. Keep hemoglobin around 8. We will follow with you. Thank you Dr. Aguirre, for providing us the opportunity in taking care of the patient, Parris Cabral. Ulysses Flaherty MD
[2017-04-08] MEDS ORDERED: Vancomycin 1gm in NS 250ml 1 GM/250 ML BAG IVPB STA (18:02)
--- NOTE | 2017-04-08 18:02 | CP.PCM.CON ---
History of Present Illness - History of Present Illness History of Present Illness: Vascular Surgery Consult Re: L BKA HPI: Pt does not respond to questions beyond grunting at this time, although per nursing staff he will occasionally converse but does not always make sense. History taken from EMR. Pt from [facility] where Dr. Turpin had been treating the patient for bilateral heel ulcerations for several weeks. Over the last week the L heel began to worsen so he suggested the pt got to ED for vascular workup and possible debridement. Dr. Griffith performed an arthrectomy and angioplasty of the L posterior tibial, and L peroneal arteries on 04/03/17. On the , Dr Turpin took the patient for debridement and since then the wound has apparently worsened so he requested surgery to evaluate for possible BKA. MRI shows Osteomyelitis in L heel. ROS not available due to pt mental status. PMH: ESRD on HD (TTS), DM, HTN, Dementia, ? CVA, Hx seizures, Hx Bullous pemphigoid, Chronic Hepatitis B, Hx Renal CA (RCC) PSH: Partial nephrectomy, L AVF SH: Hx ETOH abuse, Former Smoker All: NKDA Meds: See MAR. on ASA Review of Systems - Review of Systems Systems not reviewed;Unavailable: Dementia Past Patient History - Infectious Disease Hx of Infectious Diseases: None - Tetanus Immunizations Tetanus Immunization: Unknown - Past Medical History & Family History Past Medical History?: Yes - Past Social History Smoking Status: Never Smoked - CARDIAC Hx Pacemaker: No - PULMONARY Hx Chronic Obstructive Pulmonary Disease (COPD): Yes - NEUROLOGICAL HX Cerebrovascular Accident: Yes Hx Dementia: Yes Hx Seizures: Yes - HEENT Hx HEENT Problems: No (WEARS RX GLASSES) - RENAL Hx Chronic Kidney Disease: Yes Hx Dialysis: Yes Hx Renal Failure: Yes (CKD, ESRD w/ HD) - ENDOCRINE/METABOLIC Hx Endocrine Disorders: Yes Hx Diabetes Mellitus Type 2: Yes Hx Hypothyroidism: No - HEMATOLOGICAL/ONCOLOGICAL Hx Blood Transfusions: Yes Hx Blood Transfusion Reaction: No - INTEGUMENTARY Hx Dermatological Problems: Yes (Bullous pemphigoid) - MUSCULOSKELETAL/RHEUMATOLOGICAL Hx Musculoskeletal Disorders: Yes Hx Arthritis: Yes Hx Unsteady Gait: Yes - GASTROINTESTINAL Hx Gastrointestinal Disorders: Yes Hx Crohn's Disease: No Hx Diverticulitis: No Hx Gall Bladder Disease: No Hx Pancreatitis: No - GENITOURINARY/GYNECOLOGICAL Hx Sexually Transmitted Disorders: No - PSYCHIATRIC Hx Anxiety: No Hx Bipolar Disorder: No Hx Depression: No Hx Post Traumatic Stress Disorder: No Hx Schizophrenia: No - SURGICAL HISTORY Hx Surgeries: Yes - ANESTHESIA Hx Anesthesia Reactions: No Hx Malignant Hyperthermia: No Meds Allergies/Adverse Reactions: Allergies Allergy/AdvReac Type Severity Reaction Status Date / Time No Known Allergies Allergy Verified 03/30/17 16:29 - Medications Medications: Current Medications Acetaminophen (Tylenol 325mg Tab) 325 mg PO Q4H PRN PRN Reason: Fever >100.4 F Acetaminophen (Tylenol 325mg Tab) 650 mg PO Q6H PRN PRN Reason: Pain, Mild (1-3) Amlodipine Besylate (Norvasc) 10 mg PO DAILY [facility] Last Admin: 04/08/17 10:16 Dose: 10 mg Aspirin (Ecotrin) 81 mg PO DAILY [facility] Last Admin: 04/08/17 10:15 Dose: 81 mg Carvedilol (Coreg) 6.25 mg PO BID [facility] Last Admin: 04/08/17 10:15 Dose: 6.25 mg Cinacalcet (Sensipar) 30 mg PO DAILY [facility] Last Admin: 04/08/17 10:15 Dose: 30 mg Donepezil HCl (Aricept) 10 mg PO HS [facility] Last Admin: 04/07/17 21:23 Dose: 10 mg Hydralazine HCl (Apresoline) 100 mg PO Q8 [facility] Last Admin: 04/05/17 06:32 Dose: Not Given Linezolid (Zyvox 600mg/300ml D5w) 600 mg in 300 mls @ 200 mls/hr IVPB Q12 [facility] PRN Reason: Protocol Stop: 04/16/17 10:01 Last Admin: 04/08/17 10:14 Dose: 200 mls/hr Piperacillin Sod/Tazobactam Sod (Zosyn 2.25 Gm In 0.9% 100 Ml) 2.25 gm in 100 mls @ 100 mls/hr IVPB Q6 [facility] PRN Reason: Protocol Stop: 04/23/17 09:54 Last Admin: 04/08/17 12:18 Dose: Not Given Insulin Human Regular (Humulin R Med) 0 units SC ACHS [facility] PRN Reason: Protocol Last Admin: 04/08/17 17:00 Dose: Not Given Lactic Acid (Lac-Hydrin 12% Cream (140 G)) 0 ea TOP BID [facility] Last Admin: 04/08/17 10:00 Dose: 1 applic Lactulose (Enulose) 20 gm PO BID [facility] Last Admin: 04/06/17 12:59 Dose: Not Given Pantoprazole Sodium (Protonix Ec Tab) 20 mg PO DAILY [facility] Last Admin: 04/08/17 10:15 Dose: 20 mg Pregabalin (Lyrica) 50 mg PO TID [facility] Last Admin: 04/08/17 14:41 Dose: 50 mg Risperidone (Risperdal Tab) 1 mg PO HS [facility] PRN Reason: Protocol Last Admin: 04/07/17 21:23 Dose: 1 mg Sevelamer HCl (Renagel) 800 mg PO TID [facility] Last Admin: 04/08/17 14:41 Dose: 800 mg Silver Sulfadiazine (Silvadene 1% 25 Gm) 25 gm TP DAILY [facility] Last Admin: 04/08/17 10:16 Dose: 25 gm Valsartan (Diovan) 320 mg PO DAILY [facility] Last Admin: 04/05/17 10:45 Dose: Not Given Vitamin B Complex/Vit C/Folic Acid (Nephro-Yudi) 1 tab PO DAILY [facility] Last Admin: 04/08/17 10:15 Dose: 1 tab Physical Exam - Constitutional Appears: Non-toxic, No Acute Distress, Cachectic - Head Exam Head Exam: ATRAUMATIC, NORMOCEPHALIC - Eye Exam Eye Exam: absent: Conjunctival injection, Scleral icterus - ENT Exam ENT Exam: Mucous Membranes Moist Additional comments: trachea midline - Respiratory Exam Respiratory Exam: NORMAL BREATHING PATTERN. absent: Accessory Muscle Use, Respiratory Distress - Cardiovascular Exam Cardiovascular Exam: RRR. absent: Bradycardia, Tachycardia - GI/Abdominal Exam GI & Abdominal Exam: Soft. absent: Distended, Tenderness - Rectal Exam Rectal Exam: Deferred - Extremities Exam Extremities exam: Positive for: tenderness (L heel). Negative for: calf tenderness, normal capillary refill, pedal edema, pedal pulses present Additional comments: Dopplerable DP and PT pulses, palpable at popliteal and above bilaterally. Posterior left heel with yellow and black eschar base, calcaneous exposed. No purulence. Non tender. L upper extremity AVF with palpable thrill. - Back Exam Back exam: absent: CVA tenderness (L), CVA tenderness (R) - Neurological Exam Additional comments: Occasionally answers yes/no questions at this time, Per nursing staff, his cognition can vary some. - Skin Skin Exam: Dry, Warm Results - Vital Signs Recent Vital Signs: Last Vital Signs Temp 97.5 F L 04/08/17 08:12 Pulse 89 04/08/17 08:12 Resp 21 04/08/17 08:12 BP 145/52 L 04/08/17 10:16 Pulse Ox 94 L 04/08/17 07:25 - Labs Result Diagrams: 04/08/17 09:55 04/08/17 09:55 Labs: Laboratory Results - last 24 hr 03/31/17 04/07/17 04/07/17 19:30 21:07 23:05 WBC RBC Hgb Hct MCV MCH MCHC RDW Plt Count Sodium Potassium Chloride Carbon Dioxide Anion Gap BUN Creatinine Est GFR ( Amer) Est GFR (Non-Af Amer) POC Glucose (mg/dL) 138 H Random Glucose Calcium Total Bilirubin AST ALT Alkaline Phosphatase Total Protein Albumin Globulin Albumin/Globulin Ratio Stool Occult Blood Blood Type O POSITIVE Antibody Screen Negative Crossmatch See Detail See Detail BBK History Checked Patient has bt 04/07/17 04/08/17 04/08/17 Unknown 07:34 09:55 WBC 5.7 RBC 3.46 L Hgb 9.3 L Hct 29.4 L MCV 85.0 MCH 26.9 MCHC 31.6 RDW 16.2 H Plt Count 62 L Sodium Potassium Chloride Carbon Dioxide Anion Gap BUN Creatinine Est GFR ( Amer) Est GFR (Non-Af Amer) POC Glucose (mg/dL) 88 Random Glucose Calcium Total Bilirubin AST ALT Alkaline Phosphatase Total Protein Albumin Globulin Albumin/Globulin Ratio Stool Occult Blood Positive H Blood Type Antibody Screen Crossmatch BBK History Checked 04/08/17 04/08/17 04/08/17 09:55 11:08 16:06 WBC RBC Hgb Hct MCV MCH MCHC RDW Plt Count Sodium 141 Potassium 3.2 L Chloride 102 Carbon Dioxide 30 Anion Gap 12 BUN 12 Creatinine 3.2 H Est GFR ( Amer) 23 Est GFR (Non-Af Amer) 19 POC Glucose (mg/dL) 102 138 H Random Glucose 90 Calcium 9.4 Total Bilirubin 0.3 AST 30 ALT 30 Alkaline Phosphatase 88 Total Protein 7.0 Albumin 2.9 L Globulin 4.1 Albumin/Globulin Ratio 0.7 L Stool Occult Blood Blood Type Antibody Screen Crossmatch BBK History Checked - Imaging and Cardiology CT scan - head Status: Image reviewed by me, Report reviewed by me Assessment & Plan - Assessment and Plan (Free Text) Assessment: 76M with worsening chronic non healing L heel wound s/p debridement and endovascular intervention with MRI evidence of osteomyelitis Plan: Continue to monitor LLE wound. Continue abx. Will D/W Dr. Milo Dong PGY4
--- NOTE | 2017-04-08 18:04 | CP.PCM.PN ---
Subjective - Date & Time of Evaluation Date of Evaluation: 04/08/17 Time of Evaluation: 12:00 - Subjective Subjective: Comfortable, no fevers, not in distress. Objective - Vital Signs/Intake and Output Vital Signs (last 24 hours): Temp Pulse Resp BP Pulse Ox 97.5 F L 89 21 145/52 L 94 L 04/08/17 08:12 04/08/17 08:12 04/08/17 08:12 04/08/17 10:16 04/08/17 07:25 Intake and Output: 04/08/17 04/08/17 06:59 18:59 Intake Total 0 280 Balance 0 280 - Medications Medications: Current Medications Acetaminophen (Tylenol 325mg Tab) 325 mg PO Q4H PRN PRN Reason: Fever >100.4 F Acetaminophen (Tylenol 325mg Tab) 650 mg PO Q6H PRN PRN Reason: Pain, Mild (1-3) Amlodipine Besylate (Norvasc) 10 mg PO DAILY [facility] Last Admin: 04/08/17 10:16 Dose: 10 mg Aspirin (Ecotrin) 81 mg PO DAILY [facility] Last Admin: 04/08/17 10:15 Dose: 81 mg Carvedilol (Coreg) 6.25 mg PO BID [facility] Last Admin: 04/08/17 10:15 Dose: 6.25 mg Cinacalcet (Sensipar) 30 mg PO DAILY [facility] Last Admin: 04/08/17 10:15 Dose: 30 mg Donepezil HCl (Aricept) 10 mg PO HS [facility] Last Admin: 04/07/17 21:23 Dose: 10 mg Hydralazine HCl (Apresoline) 100 mg PO Q8 [facility] Last Admin: 04/05/17 06:32 Dose: Not Given Linezolid (Zyvox 600mg/300ml D5w) 600 mg in 300 mls @ 200 mls/hr IVPB Q12 [facility] PRN Reason: Protocol Stop: 04/16/17 10:01 Last Admin: 04/08/17 10:14 Dose: 200 mls/hr Piperacillin Sod/Tazobactam Sod (Zosyn 2.25 Gm In 0.9% 100 Ml) 2.25 gm in 100 mls @ 100 mls/hr IVPB Q6 [facility] PRN Reason: Protocol Stop: 04/23/17 09:54 Last Admin: 04/08/17 10:14 Dose: 100 mls/hr Insulin Human Regular (Humulin R Med) 0 units SC ACHS [facility] PRN Reason: Protocol Last Admin: 04/08/17 08:30 Dose: Not Given Lactic Acid (Lac-Hydrin 12% Cream (140 G)) 0 ea TOP BID [facility] Last Admin: 04/07/17 10:05 Dose: 1 applic Lactulose (Enulose) 20 gm PO BID [facility] Last Admin: 04/06/17 12:59 Dose: Not Given Pantoprazole Sodium (Protonix Ec Tab) 20 mg PO DAILY [facility] Last Admin: 04/08/17 10:15 Dose: 20 mg Pregabalin (Lyrica) 50 mg PO TID [facility] Last Admin: 04/08/17 10:16 Dose: 50 mg Risperidone (Risperdal Tab) 1 mg PO HS [facility] PRN Reason: Protocol Last Admin: 04/07/17 21:23 Dose: 1 mg Sevelamer HCl (Renagel) 800 mg PO TID [facility] Last Admin: 04/08/17 10:15 Dose: 800 mg Silver Sulfadiazine (Silvadene 1% 25 Gm) 25 gm TP DAILY [facility] Last Admin: 04/08/17 10:16 Dose: 25 gm Valsartan (Diovan) 320 mg PO DAILY [facility] Last Admin: 04/05/17 10:45 Dose: Not Given Vitamin B Complex/Vit C/Folic Acid (Nephro-Yudi) 1 tab PO DAILY [facility] Last Admin: 04/08/17 10:15 Dose: 1 tab - Labs Labs: 04/08/17 09:55 04/08/17 09:55 APTT 31.9 Seconds (25.1-36.5) 03/30/17 17:51 - Constitutional Appears: Non-toxic - Head Exam Head Exam: NORMAL INSPECTION - ENT Exam ENT Exam: Mucous Membranes Moist - Neck Exam Neck Exam: absent: Lymphadenopathy, Meningismus - Respiratory Exam Respiratory Exam: Decreased Breath Sounds - Cardiovascular Exam Cardiovascular Exam: +S1, +S2 - GI/Abdominal Exam GI & Abdominal Exam: Soft. absent: Tenderness Assessment and Plan - Assessment and Plan (Free Text) Plan: Assessment bilateral gangrenous heel ulcers S/P debridement, growing MRSA, PRoteus and E. faecalis; there is evidence of osteomyelitis on MRI of the left heel (calcaneus) change in sensorium, etiology to be determined Possible hemochromatosis DM HTN dyslipidemia ESRD on HD renal cancer S/P partial nephrectomy hepatitis B and C infection history of bullous pemphigoid CAD Plan will change Zyvox to Vanco qHD since there is thrombocytopenia; we can switch Zosyn to Rocephin now and would need 4-6 weeks of antibiotics will monitor clinically CT head does not show acute findings overall prognosis is poor
--- NOTE | 2017-04-08 22:15 | CP.PCM.PN ---
Subjective - Date & Time of Evaluation Date of Evaluation: 04/08/17 Time of Evaluation: 10:30 - Subjective Subjective: Patient agitated earlier today per nursing staff, had to be given ativan; lethargic afterward; Objective - Vital Signs/Intake and Output Vital Signs (last 24 hours): Temp Pulse Resp BP Pulse Ox 97.3 F L 65 18 142/63 100 04/08/17 16:00 04/08/17 17:54 04/08/17 16:00 04/08/17 17:54 04/08/17 16:00 Intake and Output: 04/08/17 04/09/17 18:59 06:59 Intake Total 280 Balance 280 - Medications Medications: Current Medications Acetaminophen (Tylenol 325mg Tab) 325 mg PO Q4H PRN PRN Reason: Fever >100.4 F Acetaminophen (Tylenol 325mg Tab) 650 mg PO Q6H PRN PRN Reason: Pain, Mild (1-3) Amlodipine Besylate (Norvasc) 10 mg PO DAILY [facility] Last Admin: 04/08/17 10:16 Dose: 10 mg Aspirin (Ecotrin) 81 mg PO DAILY [facility] Last Admin: 04/08/17 10:15 Dose: 81 mg Carvedilol (Coreg) 6.25 mg PO BID [facility] Last Admin: 04/08/17 17:54 Dose: 6.25 mg Cinacalcet (Sensipar) 30 mg PO DAILY [facility] Last Admin: 04/08/17 10:15 Dose: 30 mg Donepezil HCl (Aricept) 10 mg PO HS [facility] Last Admin: 04/08/17 21:18 Dose: 10 mg Hydralazine HCl (Apresoline) 100 mg PO Q8 [facility] Last Admin: 04/05/17 06:32 Dose: Not Given Ceftriaxone Sodium (Rocephin 1 Gram Ivpb (D5w)) 1 gm in 100 mls @ 100 mls/hr IVPB DAILY [facility] PRN Reason: Protocol Insulin Human Regular (Humulin R Med) 0 units SC ACHS [facility] PRN Reason: Protocol Last Admin: 04/08/17 17:00 Dose: Not Given Lactic Acid (Lac-Hydrin 12% Cream (140 G)) 0 ea TOP BID [facility] Last Admin: 04/08/17 18:15 Dose: 1 applic Lactulose (Enulose) 20 gm PO BID [facility] Last Admin: 04/06/17 12:59 Dose: Not Given Pantoprazole Sodium (Protonix Ec Tab) 20 mg PO DAILY [facility] Last Admin: 04/08/17 10:15 Dose: 20 mg Pregabalin (Lyrica) 50 mg PO TID [facility] Last Admin: 04/08/17 17:54 Dose: 50 mg Risperidone (Risperdal Tab) 1 mg PO [facility] PRN Reason: Protocol Last Admin: 04/08/17 21:18 Dose: 1 mg Sevelamer HCl (Renagel) 800 mg PO TID [facility] Last Admin: 04/08/17 17:54 Dose: 800 mg Silver Sulfadiazine (Silvadene 1% 25 Gm) 25 gm TP DAILY [facility] Last Admin: 04/08/17 10:16 Dose: 25 gm Valsartan (Diovan) 320 mg PO DAILY [facility] Last Admin: 04/05/17 10:45 Dose: Not Given Vitamin B Complex/Vit C/Folic Acid (Nephro-Yudi) 1 tab PO DAILY [facility] Last Admin: 04/08/17 10:15 Dose: 1 tab - Labs Labs: 04/08/17 09:55 04/08/17 09:55 APTT 31.9 Seconds (25.1-36.5) 03/30/17 17:51 - Constitutional Appears: Non-toxic, No Acute Distress - Head Exam Head Exam: NORMAL INSPECTION - Eye Exam Eye Exam: absent: Scleral icterus - ENT Exam ENT Exam: Mucous Membranes Moist - Respiratory Exam Respiratory Exam: Clear to Ausculation Bilateral. absent: Respiratory Distress - Cardiovascular Exam Cardiovascular Exam: RRR, +S1, +S2 - GI/Abdominal Exam GI & Abdominal Exam: Soft. absent: Distended, Tenderness - Extremities Exam Additional comments: no leg edema; - Neurological Exam Neurological Exam: Alert, Awake - Psychiatric Exam Psychiatric exam: absent: Agitated Additional comments: lethargic, slow to answer; - Skin Skin Exam: Warm. absent: Cyanosis Assessment and Plan (1) ESRD (end stage renal disease) Assessment & Plan: Stable electrolye and volume status (mild hypokalemia noted); last HD yesterday , next for Sunday; Status: Chronic (2) Heel ulceration Assessment & Plan: With evidence of L foot OM; on zyvox and zosyn; discussed with ID regarding changing to vanco and gent (can easily be given on HD days as outpatient, especially in patient who has propensity to pull out IV lines); Status: Acute (3) Anemia in ESRD (end-stage renal disease) Assessment & Plan: s/p 1 more u prbc yesterday; also given IV iron and aranesp 100 mcg yesterday on HD; continue to monitor; will continue IV iron on HD; Status: Acute (4) Chronic kidney disease-mineral and bone disorder Assessment & Plan: Corrected Ca at higher end of normal; continue sensipar 30 mg daily; continue sevelamer 1 tab w/ meals; Status: Acute (5) Hypertensive CKD, ESRD on dialysis Assessment & Plan: BP stable currently; hydralazine and valsartan still being held after patient had low/normal BP post-op, will continue to hold for now; monitor; Status: Acute
--- NOTE | 2017-04-08 22:41 | PN ---
DATE: 04/08/2017 SUBJECTIVE: The patient is seen today. He seems doing well. He is sitting, food in front of him, and ate a little bit. The patient needs some assistance in eating and discussed with the nurse, he fed him, somehow while he is in the bed seems eating and just need some assistance; otherwise, he seems more alert, more awake, cooperative, and in no distress. PHYSICAL EXAMINATION: VITAL SIGNS: On 04/08/2017; his temperature 97.4, heart rate 69, blood pressure 163/66, respirations 20, and saturating 94% on room air. HEAD AND NECK: Normal. No JVD. No thyromegaly. CHEST: Clear. Good air entry. CARDIAC: First sound and second sound normal. ABDOMEN: Soft and nontender. EXTREMITIES: No edema. NEUROLOGIC: Normal. LABORATORY DATA: White count is 5.7, hemoglobin is 9.3, hematocrit is 29.4, and platelets are 62. Chemistry; sodium is 141, potassium is 3.2, chloride is 102, bicarbonate is 30, BUN is 12, and creatinine is 3.2. Liver function test is normal. IMPRESSION AND PLAN: 1. Left heel osteomyelitis. The patient underwent debridement, seems not working well. We will consider surgical evaluation and Dr. Carlson recommended below-knee amputation. The patient already had revascularization by Dr. Jed Griffith. Continue IV antibiotic, currently on Zyvox and Zosyn. Last blood culture was done was negative. Continue current therapy. We will discuss with Dr. Carlson, podiatry consult. 2. Chronic renal failure. Continue hemodialysis, seems stable. 3. Anemia, seems better. Hemoglobin went up. We will follow up with the technical marketing engineer. The patient will go for surgery. His platelet runs in the 70s. We will follow up with that. We will discuss with Dr. Jackson for presurgery evaluation . 4. Hypertension. Continue current medications, hydralazine, Coreg, Diovan, and Norvasc. We will monitor his blood pressure on a daily basis. 5. The patient has dementia with some change in behavioral agitations, he took off the IV line access before continue Aricept and continue Risperdal p.r.n. and Ativan also p.r.n. For his diabetes, the patient getting insulin coverage p.r.n. Barber Aguirre MD
--- NOTE | 2017-04-09 00:25 | PN ---
DATE: 04/07/2017 SUBJECTIVE: The patient is clinically stable. No new complaints. Left heel wound seen by Dr. Carlson, not doing well with the healing of the wound, otherwise the patient is stable. No new complaints. PHYSICAL EXAMINATION: VITAL SIGNS: On 04/07/2017 shows following, temperature 97.7, heart rate 55, blood pressure 158/70, respirations 18, saturation 99%. HEAD AND NECK: Normal. No JVD. No thyromegaly. CHEST: Clear, good air entry. CARDIAC: First sound and second sound normal. ABDOMEN: Soft, nontender. EXTREMITIES: No edema. Left heel area is covered with on both sides. NEUROLOGIC: The patient is more awake, more responding. He is in no distress. Moves all extremities. LABORATORY DATA: On 04/07/2017 is all follows: Sodium 135, potassium 3.2, chloride 97, bicarb 30, BUN 17, creatinine 4.7, sugar 121, calcium 9.1, phosphorus 5.4, magnesium 2. CBC shows white count 6.3, hemoglobin 7.7, hematocrit 24.4, platelets 58. IMPRESSION AND PLAN: 1. Left calcaneal osteomyelitis status post debridement. The patient probably will need below-knee amputation, discussed with Dr. Carlson. He will discuss with the daughter. Continue IV antibiotics and followup with the software consultant. The patient had revascularization in both lower extremities and Dr. Jed Griffith. Continue current therapy. 2. Chronic renal failure. The patient had hemodynamics today, seems stable. His hemoglobin is low at 7.7, we will transfuse 1 unit of packed RBCs. We will repeat CBC in the morning. 3. Hypertension, diabetes. Continue current therapy. Continue fingerstick. Blood sugar running low. We will follow up on that, currently getting EpiPen, continue that, monitor his mental status and we will discontinue it once he starts eating and doing better. 4. Generalized weakness, agitations. Continue Risperdal. We will monitor his mental status, it seems improving. The patient did have a CT, which is negative and continue current therapy. Barber Aguirre MD
--- NOTE | 2017-04-09 00:29 | PN ---
DATE: 04/06/2017 SUBJECTIVE: The patient has change in mental status. According to the nurses, it is early, could not wake him up. The patient did have MRI day before and had Ativan given and also had some procedures done, probably medication related. The patient had a CT of the head on that day. Right now, the patient seems more responding and he is responding waking up, open his eyes, and responds to calling his name. Feels confused, but otherwise better than before. PHYSICAL EXAMINATION: VITAL SIGNS: On 04/06/2017, his temperature 99.1, heart rate 78, blood pressure 156/64, respirations 17, and saturating 98%. HEAD AND NECK: Normal. No JVD. No thyromegaly. CHEST: Clear with good air entry. CARDIAC: First sound and second sound normal. ABDOMEN: Soft and nontender. EXTREMITIES: There is no edema. Left calcaneus is covered with gauze and status post debridement. NEUROLOGIC: He moves extremities, but he is still confused intermittently. LABORATORY DATA: On 04/06/2017, white count 6.5, hemoglobin 8.6, hematocrit 26.7, and platelets 67. His chemistry noted for sodium 139, potassium 3.3, chloride 98, bicarb 35, BUN 11, and creatinine 3.2. His blood sugar is 85. Calcium 8.7. Liver function test is normal. IMPRESSION AND PLAN: 1. Acute change in mental status probably toxic metabolic. The patient has anesthesia and Ativan, has procedure done probably related to that. CT of the head was negative for bleeds. We will continue to observe. 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 We will continue to observe. 2. Peripheral vascular disease with left heel calcaneal osteomyelitis possibly as per MRI done, which shows positive for osteomyelitis, status post debridement. We will continue follow up with Dr. Carlson. Continue IV Zyvox and IV Zosyn and continue with local wound care. 3. Hypertension, diabetes. Continue current medications. 4. Chronic renal failure. Continue hemodialysis. Continue current therapy. We will follow up clinically. Barber Aguirre MD
[2017-04-09 08:26] LABS: BASO # 0.02 K/mm3 (0.0-2.0); BASO % 0.3 % (0.0-3.0); EOS # 0.2 (0.0-0.7); EOS % 3.1 % (1.5-5.0); GRAN # 5.45 (1.4-6.5); GRAN % 77.9 % (50.0-68.0); HEMATOCRIT 27.2 % (42.0-52.0); LYMPH # 0.9 (1.2-3.4); LYMPH % 12.7 % (22.0-35.0); MEAN CORPUSCULAR HEMOGLOBIN 26.9 pg (25.0-35.0); MONO # 0.4 (0.1-0.6); PLATELET COUNT 72 10^3/uL (120.0-450.0); RED CELL DISTRIBUTION WIDTH 16.3 % (11.5-14.5)
--- NOTE | 2017-04-09 08:32 | CP.PCM.PN ---
Subjective - Date & Time of Evaluation Date of Evaluation: 04/09/17 Time of Evaluation: 08:29 - Subjective Subjective: PGY1 Note for Dr. Pedraza HPI: Patient seen and examined at bedside. Looks comfortable. ROS unattainable. Objective - Vital Signs/Intake and Output Vital Signs (last 24 hours): Temp Pulse Resp BP Pulse Ox 97.9 F 62 18 154/65 H 97 04/09/17 08:00 04/09/17 08:00 04/09/17 08:00 04/09/17 08:00 04/09/17 08:00 Intake and Output: 04/09/17 04/09/17 06:59 18:59 Intake Total 100 Balance 100 - Medications Medications: Current Medications Acetaminophen (Tylenol 325mg Tab) 325 mg PO Q4H PRN PRN Reason: Fever >100.4 F Acetaminophen (Tylenol 325mg Tab) 650 mg PO Q6H PRN PRN Reason: Pain, Mild (1-3) Amlodipine Besylate (Norvasc) 10 mg PO DAILY [facility] Last Admin: 04/08/17 10:16 Dose: 10 mg Aspirin (Ecotrin) 81 mg PO DAILY [facility] Last Admin: 04/08/17 10:15 Dose: 81 mg Carvedilol (Coreg) 6.25 mg PO BID [facility] Last Admin: 04/08/17 17:54 Dose: 6.25 mg Cinacalcet (Sensipar) 30 mg PO DAILY [facility] Last Admin: 04/08/17 10:15 Dose: 30 mg Donepezil HCl (Aricept) 10 mg PO HS [facility] Last Admin: 04/08/17 21:18 Dose: 10 mg Hydralazine HCl (Apresoline) 100 mg PO Q8 [facility] Last Admin: 04/05/17 06:32 Dose: Not Given Ceftriaxone Sodium (Rocephin 1 Gram Ivpb (D5w)) 1 gm in 100 mls @ 100 mls/hr IVPB DAILY [facility] PRN Reason: Protocol Insulin Human Regular (Humulin R Med) 0 units SC ACHS [facility] PRN Reason: Protocol Last Admin: 04/08/17 22:25 Dose: Not Given Lactic Acid (Lac-Hydrin 12% Cream (140 G)) 0 ea TOP BID [facility] Last Admin: 04/08/17 18:15 Dose: 1 applic Lactulose (Enulose) 20 gm PO BID [facility] Last Admin: 04/06/17 12:59 Dose: Not Given Pantoprazole Sodium (Protonix Ec Tab) 20 mg PO DAILY [facility] Last Admin: 04/08/17 10:15 Dose: 20 mg Pregabalin (Lyrica) 50 mg PO TID [facility] Last Admin: 04/08/17 17:54 Dose: 50 mg Risperidone (Risperdal Tab) 1 mg PO HS [facility] PRN Reason: Protocol Last Admin: 04/08/17 21:18 Dose: 1 mg Sevelamer HCl (Renagel) 800 mg PO TID [facility] Last Admin: 04/08/17 17:54 Dose: 800 mg Silver Sulfadiazine (Silvadene 1% 25 Gm) 25 gm TP DAILY [facility] Last Admin: 04/08/17 10:16 Dose: 25 gm Valsartan (Diovan) 320 mg PO DAILY [facility] Last Admin: 04/05/17 10:45 Dose: Not Given Vitamin B Complex/Vit C/Folic Acid (Nephro-Yudi) 1 tab PO DAILY [facility] Last Admin: 04/08/17 10:15 Dose: 1 tab - Labs Labs: 04/08/17 09:55 04/08/17 09:55 APTT 31.9 Seconds (25.1-36.5) 03/30/17 17:51 - Constitutional Appears: Chronically Ill - Head Exam Head Exam: ATRAUMATIC, NORMAL INSPECTION, NORMOCEPHALIC - Eye Exam Eye Exam: EOMI Pupil Exam: NORMAL ACCOMODATION - ENT Exam ENT Exam: Mucous Membranes Moist - Respiratory Exam Respiratory Exam: Clear to Ausculation Bilateral, NORMAL BREATHING PATTERN - Cardiovascular Exam Cardiovascular Exam: REGULAR RHYTHM - GI/Abdominal Exam GI & Abdominal Exam: Soft, Normal Bowel Sounds. absent: Distended, Tenderness - Extremities Exam Additional comments: Dopplerable DP and PT pulses, palpable at popliteal and above bilaterally. Posterior left heel with yellow and black eschar base, calcaneous exposed. No purulence. Non tender. L upper extremity AVF with palpable thrill. Assessment and Plan - Assessment and Plan (Free Text) Assessment: 76M with worsening chronic non healing L heel wound s/p debridement and endovascular intervention with MRI evidence of osteomyelitis Plan: * Continue Medical therapy * Will continue to monitor LLE wound * Will DW Dr. Milo Hollingsworth PGY1
[2017-04-09 08:36] LABS: ALB/GLOB RATIO 0.7 (1.1-1.8); BILIRUBIN,TOTAL 0.2 mg/dL (0.2-1.3); CALCIUM 9.4 mg/dL (8.4-10.5); POTASSIUM 3.3 mmol/L (3.6-5.0); TOTAL PROTEIN 6.6 g/dL (5.8-8.3)
--- NOTE | 2017-04-09 08:45 | CP.PCM.PN ---
Subjective - Date & Time of Evaluation Date of Evaluation: 04/09/17 Time of Evaluation: 08:42 - Subjective Subjective: Progress note for nephrology, Dr. Garcia Pt is seen and examined at bedside. No acute events overnight. Patient is more awake this morning. Denies having any CP, SOB, abd pain, N/V/D/C. Tolerating diet. Objective - Vital Signs/Intake and Output Vital Signs (last 24 hours): Temp Pulse Resp BP Pulse Ox 97.9 F 62 18 154/65 H 97 04/09/17 08:00 04/09/17 08:00 04/09/17 08:00 04/09/17 08:00 04/09/17 08:00 Intake and Output: 04/09/17 04/09/17 06:59 18:59 Intake Total 450 Balance 450 - Medications Medications: Current Medications Acetaminophen (Tylenol 325mg Tab) 325 mg PO Q4H PRN PRN Reason: Fever >100.4 F Acetaminophen (Tylenol 325mg Tab) 650 mg PO Q6H PRN PRN Reason: Pain, Mild (1-3) Amlodipine Besylate (Norvasc) 10 mg PO DAILY [facility] Last Admin: 04/08/17 10:16 Dose: 10 mg Aspirin (Ecotrin) 81 mg PO DAILY [facility] Last Admin: 04/08/17 10:15 Dose: 81 mg Carvedilol (Coreg) 6.25 mg PO BID [facility] Last Admin: 04/08/17 17:54 Dose: 6.25 mg Cinacalcet (Sensipar) 30 mg PO DAILY [facility] Last Admin: 04/08/17 10:15 Dose: 30 mg Donepezil HCl (Aricept) 10 mg PO HS [facility] Last Admin: 04/08/17 21:18 Dose: 10 mg Hydralazine HCl (Apresoline) 100 mg PO Q8 [facility] Last Admin: 04/05/17 06:32 Dose: Not Given Ceftriaxone Sodium (Rocephin 1 Gram Ivpb (D5w)) 1 gm in 100 mls @ 100 mls/hr IVPB DAILY [facility] PRN Reason: Protocol Insulin Human Regular (Humulin R Med) 0 units SC ACHS [facility] PRN Reason: Protocol Last Admin: 04/08/17 22:25 Dose: Not Given Lactic Acid (Lac-Hydrin 12% Cream (140 G)) 0 ea TOP BID [facility] Last Admin: 12/10/17 18:15 Dose: 1 applic Lactulose (Enulose) 20 gm PO BID [facility] Last Admin: 04/06/17 12:59 Dose: Not Given Pantoprazole Sodium (Protonix Ec Tab) 20 mg PO DAILY [facility] Last Admin: 04/08/17 10:15 Dose: 20 mg Pregabalin (Lyrica) 50 mg PO TID [facility] Last Admin: 04/08/17 17:54 Dose: 50 mg Risperidone (Risperdal Tab) 1 mg PO HS [facility] PRN Reason: Protocol Last Admin: 04/08/17 21:18 Dose: 1 mg Sevelamer HCl (Renagel) 800 mg PO TID [facility] Last Admin: 04/08/17 17:54 Dose: 800 mg Silver Sulfadiazine (Silvadene 1% 25 Gm) 25 gm TP DAILY [facility] Last Admin: 04/08/17 10:16 Dose: 25 gm Valsartan (Diovan) 320 mg PO DAILY [facility] Last Admin: 04/05/17 10:45 Dose: Not Given Vitamin B Complex/Vit C/Folic Acid (Nephro-Yudi) 1 tab PO DAILY [facility] Last Admin: 04/08/17 10:15 Dose: 1 tab - Labs Labs: 04/09/17 08:00 04/09/17 08:00 APTT 31.9 Seconds (25.1-36.5) 03/30/17 17:51 - Constitutional Appears: Non-toxic, No Acute Distress - Head Exam Head Exam: ATRAUMATIC - ENT Exam ENT Exam: Mucous Membranes Moist - Respiratory Exam Respiratory Exam: Clear to Ausculation Bilateral. absent: Accessory Muscle Use , Rales, Rhonchi, Wheezes, Respiratory Distress - Cardiovascular Exam Cardiovascular Exam: REGULAR RHYTHM, +S1, +S2, Murmur (systolic murmur Grade II) . absent: Gallop, Rubs - GI/Abdominal Exam GI & Abdominal Exam: Normal Bowel Sounds. absent: Distended, Firm, Rigid, Tenderness, Organomegaly - Extremities Exam Extremities Exam: absent: Pedal Edema, Tenderness - Neurological Exam Neurological Exam: Alert, Awake, Oriented x3 - Psychiatric Exam Psychiatric exam: Normal Affect, Normal Mood - Skin Skin Exam: Dry, Intact, Normal Color, Warm Assessment and Plan - Assessment and Plan (Free Text) Assessment: (1) ESRD (end stage renal disease) Stable electrolye and volume status (mild hypokalemia noted). HD TTS (2) Heel ulceration Pt currently on Rocephin QD. Vascular surgery and podiatry consulted. Podiatry recommends BKA. Surgery consulted as well (3) Anemia in ESRD (end-stage renal disease) s/p 1 more u prbc; also given IV iron and aranesp 100 mcg yesterday on HD; continue to monitor; will continue IV iron on HD; (4) Chronic kidney disease-mineral and bone disorder continue sensipar 30 mg daily; continue sevelamer 1 tab w/ meals; (5) Hypertensive CKD, ESRD on dialysis BP stable currently. Currently hydralazine and valsartan on hold
[2017-04-09] MEDS: Insulin Reg-MEDIUM-Coverage SC SCH ×4 (08:51→22:07)
[2017-04-09] MEDS: Multivitamin Vitamin B Complex (Nephro-Vite) Tab PO SCH (10:33)
[2017-04-09] MEDS: cefTRIAXone 1 gm 1 GM/100 ML BAG IVPB SCH (10:34)
[2017-04-09] MEDS: Pantoprazole 20 mg EC Tab PO SCH (10:34)
--- NOTE | 2017-04-09 10:57 | CP.PCM.CON ---
<Em Barger - Last Filed: 04/09/17 17:43> History of Present Illness - History of Present Illness History of Present Illness: PGY-2 Neurology consult note for Dr. Almonte's service 76 yo male with PMH of ESRD, dementia, chronic hepatitis B, HTN, presnets to ED with worsening left foot pain. During hospital course patient was noted to be more confused then baseline. Patient has history of dementia and is currently only oriented to person, unable to provide history. Patient appeared to become altered after debridment of foot ulcer. This morning patient is doing better, he is more alert but continues to wax and wane at his baseline. He denies chest pain, sob, abd pain, headache, dizziness. PMH: ESRD, dementia, chronic hepatitis B, HTN PSH: none allergy: NKDA Review of Systems - Review of Systems Systems not reviewed;Unavailable: Dementia All systems: reviewed and no additional remarkable complaints except (as stated in HPI) Past Patient History - Infectious Disease Hx of Infectious Diseases: None - Tetanus Immunizations Tetanus Immunization: Unknown - Past Medical History & Family History Past Medical History?: Yes - Past Social History Smoking Status: Never Smoked - CARDIAC Hx Pacemaker: No - PULMONARY Hx Chronic Obstructive Pulmonary Disease (COPD): Yes - NEUROLOGICAL HX Cerebrovascular Accident: Yes Hx Dementia: Yes Hx Seizures: Yes - HEENT Hx HEENT Problems: No (WEARS RX GLASSES) - RENAL Hx Chronic Kidney Disease: Yes Hx Dialysis: Yes Hx Renal Failure: Yes (CKD, ESRD w/ HD) - ENDOCRINE/METABOLIC Hx Endocrine Disorders: Yes Hx Diabetes Mellitus Type 2: Yes Hx Hypothyroidism: No - HEMATOLOGICAL/ONCOLOGICAL Hx Blood Transfusions: Yes Hx Blood Transfusion Reaction: No - INTEGUMENTARY Hx Dermatological Problems: Yes (Bullous pemphigoid) - MUSCULOSKELETAL/RHEUMATOLOGICAL Hx Musculoskeletal Disorders: Yes Hx Arthritis: Yes Hx Unsteady Gait: Yes - GASTROINTESTINAL Hx Gastrointestinal Disorders: Yes Hx Crohn's Disease: No Hx Diverticulitis: No Hx Gall Bladder Disease: No Hx Pancreatitis: No - GENITOURINARY/GYNECOLOGICAL Hx Sexually Transmitted Disorders: No - PSYCHIATRIC Hx Anxiety: No Hx Bipolar Disorder: No Hx Depression: No Hx Post Traumatic Stress Disorder: No Hx Schizophrenia: No - SURGICAL HISTORY Hx Surgeries: Yes - ANESTHESIA Hx Anesthesia Reactions: No Hx Malignant Hyperthermia: No Meds Allergies/Adverse Reactions: Allergies Allergy/AdvReac Type Severity Reaction Status Date / Time No Known Allergies Allergy Verified 03/30/17 16:29 - Medications Medications: Current Medications Acetaminophen (Tylenol 325mg Tab) 325 mg PO Q4H PRN PRN Reason: Fever >100.4 F Acetaminophen (Tylenol 325mg Tab) 650 mg PO Q6H PRN PRN Reason: Pain, Mild (1-3) Amlodipine Besylate (Norvasc) 10 mg PO DAILY [facility] Last Admin: 04/09/17 10:33 Dose: 10 mg Aspirin (Ecotrin) 81 mg PO DAILY [facility] Last Admin: 04/09/17 10:33 Dose: 81 mg Carvedilol (Coreg) 6.25 mg PO BID [facility] Last Admin: 04/09/17 10:32 Dose: 6.25 mg Cinacalcet (Sensipar) 30 mg PO DAILY [facility] Last Admin: 04/09/17 10:35 Dose: 30 mg Donepezil HCl (Aricept) 10 mg PO HS [facility] Last Admin: 04/08/17 21:18 Dose: 10 mg Hydralazine HCl (Apresoline) 100 mg PO Q8 [facility] Last Admin: 04/05/17 06:32 Dose: Not Given Ceftriaxone Sodium (Rocephin 1 Gram Ivpb (D5w)) 1 gm in 100 mls @ 100 mls/hr IVPB DAILY [facility] PRN Reason: Protocol Last Admin: 04/09/17 10:34 Dose: 100 mls/hr Insulin Human Regular (Humulin R Med) 0 units SC ACHS [facility] PRN Reason: Protocol Last Admin: 04/09/17 08:51 Dose: Not Given Lactic Acid (Lac-Hydrin 12% Cream (140 G)) 0 ea TOP BID [facility] Last Admin: 04/08/17 18:15 Dose: 1 applic Lactulose (Enulose) 20 gm PO BID [facility] Last Admin: 04/06/17 12:59 Dose: Not Given Pantoprazole Sodium (Protonix Ec Tab) 20 mg PO DAILY [facility] Last Admin: 04/09/17 10:34 Dose: 20 mg Pregabalin (Lyrica) 50 mg PO TID [facility] Last Admin: 04/09/17 10:33 Dose: 50 mg Risperidone (Risperdal Tab) 1 mg PO HS [facility] PRN Reason: Protocol Last Admin: 04/08/17 21:18 Dose: 1 mg Sevelamer HCl (Renagel) 800 mg PO TID [facility] Last Admin: 04/09/17 10:34 Dose: 800 mg Silver Sulfadiazine (Silvadene 1% 25 Gm) 25 gm TP DAILY [facility] Last Admin: 04/08/17 10:16 Dose: 25 gm Valsartan (Diovan) 320 mg PO DAILY [facility] Last Admin: 04/05/17 10:45 Dose: Not Given Vitamin B Complex/Vit C/Folic Acid (Nephro-Yudi) 1 tab PO DAILY [facility] Last Admin: 04/09/17 10:33 Dose: 1 tab Physical Exam - Constitutional Appears: No Acute Distress - Head Exam Head Exam: ATRAUMATIC, NORMAL INSPECTION, NORMOCEPHALIC - Eye Exam Eye Exam: EOMI, Normal appearance - ENT Exam ENT Exam: Mucous Membranes Moist - Respiratory Exam Respiratory Exam: NORMAL BREATHING PATTERN. absent: Respiratory Distress - Cardiovascular Exam Cardiovascular Exam: REGULAR RHYTHM - Neurological Exam Neurological exam: Alert, CN II-XII Intact - Expanded Neurological Exam Expanded Patient oriented to: person Cranial nerves: EOM's Intact: Normal, Tongue Deviation: Normal Cerebellar Function: Finger to Nose: Normal Neuro motor strength exam: Left Upper Extremity: 5, Right Upper Extremity: 5, Left Lower Extremity: 5, Right Lower Extremity: 5 Results - Vital Signs Recent Vital Signs: Last Vital Signs Temp 97.9 F 04/09/17 08:00 Pulse 62 04/09/17 10:32 Resp 18 04/09/17 08:00 BP 154/65 H 04/09/17 10:33 Pulse Ox 97 04/09/17 08:00 - Labs Result Diagrams: 04/09/17 08:00 04/09/17 08:00 Labs: Laboratory Results - last 24 hr 04/08/17 04/08/17 04/08/17 11:08 16:06 21:41 WBC RBC Hgb Hct MCV MCH MCHC RDW Plt Count Gran % Lymph % (Auto) [place] % (Auto) Eos % (Auto) Baso % (Auto) Gran # Lymph # [place] # Eos # Baso # Sodium Potassium Chloride Carbon Dioxide Anion Gap BUN Creatinine Est GFR ( Amer) Est GFR (Non-Af Amer) POC Glucose (mg/dL) 102 138 H 137 H Random Glucose Calcium Total Bilirubin AST ALT Alkaline Phosphatase Total Protein Albumin Globulin Albumin/Globulin Ratio 04/09/17 04/09/17 04/09/17 07:39 08:00 08:00 WBC 7.0 D RBC 3.24 L Hgb 8.7 L Hct 27.2 L MCV 84.0 MCH 26.9 MCHC 32.0 RDW 16.3 H Plt Count 72 L Gran % 77.9 H Lymph % (Auto) 12.7 L [place] % (Auto) 6.0 Eos % (Auto) 3.1 Baso % (Auto) 0.3 Gran # 5.45 Lymph # 0.9 L [place] # 0.4 Eos # 0.2 Baso # 0.02 Sodium 139 Potassium 3.3 L Chloride 104 Carbon Dioxide 29 Anion Gap 10 BUN 23 H Creatinine 4.2 H Est GFR ( Amer) 17 Est GFR (Non-Af Amer) 14 POC Glucose (mg/dL) 80 Random Glucose 81 Calcium 9.4 Total Bilirubin 0.2 AST 28 ALT 25 Alkaline Phosphatase 83 Total Protein 6.6 Albumin 2.7 L Globulin 4.0 Albumin/Globulin Ratio 0.7 L Assessment & Plan - Assessment and Plan (Free Text) Assessment: 76 yo male with PMH of ESRD, dementia, chronic hepatitis B, HTN, presents to ED with worsening left foot pain found to have AMS possibly due to toxic metabolic with underlying dementia 1. ams 2. dementia 3. PVD 4. HTN - CT head on 04/06 showed no acute finding - avoid sedative medications - monitor electrolytes, replace as needed - PT/OT case discussed and reviewed with attending <Oniel Almonte - Last Filed: 04/09/17 18:02> Meds - Medications Medications: Current Medications Acetaminophen (Tylenol 325mg Tab) 325 mg PO Q4H PRN PRN Reason: Fever >100.4 F Acetaminophen (Tylenol 325mg Tab) 650 mg PO Q6H PRN PRN Reason: Pain, Mild (1-3) Amlodipine Besylate (Norvasc) 10 mg PO DAILY [facility] Last Admin: 04/09/17 10:33 Dose: 10 mg Aspirin (Ecotrin) 81 mg PO DAILY [facility] Last Admin: 04/09/17 10:33 Dose: 81 mg Carvedilol (Coreg) 6.25 mg PO BID [facility] Last Admin: 04/09/17 17:51 Dose: 6.25 mg Cinacalcet (Sensipar) 30 mg PO DAILY [facility] Last Admin: 04/09/17 10:35 Dose: 30 mg Donepezil HCl (Aricept) 10 mg PO HS [facility] Last Admin: 04/08/17 21:18 Dose: 10 mg Hydralazine HCl (Apresoline) 100 mg PO Q8 [facility] Last Admin: 04/05/17 06:32 Dose: Not Given Ceftriaxone Sodium (Rocephin 1 Gram Ivpb (D5w)) 1 gm in 100 mls @ 100 mls/hr IVPB DAILY [facility] PRN Reason: Protocol Last Admin: 04/09/17 10:34 Dose: 100 mls/hr Insulin Human Regular (Humulin R Med) 0 units SC ACHS [facility] PRN Reason: Protocol Last Admin: 04/09/17 17:43 Dose: Not Given Lactic Acid (Lac-Hydrin 12% Cream (140 G)) 0 ea TOP BID [facility] Last Admin: 04/08/17 18:15 Dose: 1 applic Lactulose (Enulose) 20 gm PO BID [facility] Last Admin: 04/06/17 12:59 Dose: Not Given Pantoprazole Sodium (Protonix Ec Tab) 20 mg PO DAILY [facility] Last Admin: 04/09/17 10:34 Dose: 20 mg Pregabalin (Lyrica) 50 mg PO TID [facility] Last Admin: 04/09/17 17:53 Dose: 50 mg Risperidone (Risperdal Tab) 1 mg PO HS [facility] PRN Reason: Protocol Last Admin: 04/08/17 21:18 Dose: 1 mg Sevelamer HCl (Renagel) 800 mg PO TID [facility] Last Admin: 04/09/17 17:53 Dose: 800 mg Silver Sulfadiazine (Silvadene 1% 25 Gm) 25 gm TP DAILY [facility] Last Admin: 04/08/17 10:16 Dose: 25 gm Valsartan (Diovan) 320 mg PO DAILY [facility] Last Admin: 04/05/17 10:45 Dose: Not Given Vitamin B Complex/Vit C/Folic Acid (Nephro-Yudi) 1 tab PO DAILY [facility] Last Admin: 04/09/17 10:33 Dose: 1 tab Results - Vital Signs Recent Vital Signs: Last Vital Signs Temp 98.7 F 04/09/17 16:00 Pulse 72 04/09/17 17:51 Resp 18 04/09/17 16:00 BP 165/75 H 04/09/17 17:51 Pulse Ox 96 04/09/17 16:00 - Labs Result Diagrams: 04/09/17 08:00 04/09/17 08:00 Labs: Laboratory Results - last 24 hr 04/08/17 04/09/17 04/09/17 21:41 07:39 08:00 WBC 7.0 D RBC 3.24 L Hgb 8.7 L Hct 27.2 L MCV 84.0 MCH 26.9 MCHC 32.0 RDW 16.3 H Plt Count 72 L Gran % 77.9 H Lymph % (Auto) 12.7 L [place] % (Auto) 6.0 Eos % (Auto) 3.1 Baso % (Auto) 0.3 Gran # 5.45 Lymph # 0.9 L [place] # 0.4 Eos # 0.2 Baso # 0.02 ESR Sodium Potassium Chloride Carbon Dioxide Anion Gap BUN Creatinine Est GFR ( Amer) Est GFR (Non-Af Amer) POC Glucose (mg/dL) 137 H 80 Random Glucose Calcium Total Bilirubin AST ALT Alkaline Phosphatase C-React Prot High Sens Total Protein Albumin Globulin Albumin/Globulin Ratio 04/09/17 04/09/17 04/09/17 08:00 11:29 11:35 WBC RBC Hgb Hct MCV MCH MCHC RDW Plt Count Gran % Lymph % (Auto) [place] % (Auto) Eos % (Auto) Baso % (Auto) Gran # Lymph # [place] # Eos # Baso # ESR 114 H Sodium 139 Potassium 3.3 L Chloride 104 Carbon Dioxide 29 Anion Gap 10 BUN 23 H Creatinine 4.2 H Est GFR ( Amer) 17 Est GFR (Non-Af Amer) 14 POC Glucose (mg/dL) 134 H Random Glucose 81 Calcium 9.4 Total Bilirubin 0.2 AST 28 ALT 25 Alkaline Phosphatase 83 C-React Prot High Sens Total Protein 6.6 Albumin 2.7 L Globulin 4.0 Albumin/Globulin Ratio 0.7 L 04/09/17 04/09/17 11:40 16:14 WBC RBC Hgb Hct MCV MCH MCHC RDW Plt Count Gran % Lymph % (Auto) [place] % (Auto) Eos % (Auto) Baso % (Auto) Gran # Lymph # [place] # Eos # Baso # ESR Sodium Potassium Chloride Carbon Dioxide Anion Gap BUN Creatinine Est GFR ( Amer) Est GFR (Non-Af Amer) POC Glucose (mg/dL) 95 Random Glucose Calcium Total Bilirubin AST ALT Alkaline Phosphatase C-React Prot High Sens > 15.00 H Total Protein Albumin Globulin Albumin/Globulin Ratio Attending/Attestation - Attestation I have personally seen and examined this patient.: Yes I have fully participated in the care of the patient.: Yes I have reviewed all pertinent clinical information: Yes
--- NOTE | 2017-04-09 14:15 | CP.PCM.PN ---
<Cristina Rosario - Last Filed: 04/09/17 14:29> Subjective - Date & Time of Evaluation Date of Evaluation: 04/09/17 Time of Evaluation: 14:09 - Subjective Subjective: Podiatry Progress Note - Drs. Carlson/Nuria 76 year old male seen at bedside 4 days s/p left heel ulcer debridement. Patient hemodynamically stable and NAD. Patient is accompanied by girlfriend at bedside. Patient awake, alert, and more responsive this visit. Denies any acute events overnight. Offloading boots present b/l. Admits to occasional mild pain to his left heel, controlled. Patient and partner are aware of possible BKA due to non-healing wound + clinical OM. Objective - Vital Signs/Intake and Output Vital Signs (last 24 hours): Temp Pulse Resp BP Pulse Ox 97.9 F 62 18 154/65 H 97 04/09/17 08:00 04/09/17 10:32 04/09/17 08:00 04/09/17 10:33 04/09/17 08:00 Intake and Output: 04/09/17 04/09/17 06:59 18:59 Intake Total 450 Balance 450 - Medications Medications: Current Medications Acetaminophen (Tylenol 325mg Tab) 325 mg PO Q4H PRN PRN Reason: Fever >100.4 F Acetaminophen (Tylenol 325mg Tab) 650 mg PO Q6H PRN PRN Reason: Pain, Mild (1-3) Amlodipine Besylate (Norvasc) 10 mg PO DAILY [facility] Last Admin: 04/09/17 10:33 Dose: 10 mg Aspirin (Ecotrin) 81 mg PO DAILY [facility] Last Admin: 04/09/17 10:33 Dose: 81 mg Carvedilol (Coreg) 6.25 mg PO BID [facility] Last Admin: 04/09/17 10:32 Dose: 6.25 mg Cinacalcet (Sensipar) 30 mg PO DAILY [facility] Last Admin: 04/09/17 10:35 Dose: 30 mg Donepezil HCl (Aricept) 10 mg PO HS [facility] Last Admin: 04/08/17 21:18 Dose: 10 mg Hydralazine HCl (Apresoline) 100 mg PO Q8 [facility] Last Admin: 04/05/17 06:32 Dose: Not Given Ceftriaxone Sodium (Rocephin 1 Gram Ivpb (D5w)) 1 gm in 100 mls @ 100 mls/hr IVPB DAILY [facility] PRN Reason: Protocol Last Admin: 04/09/17 10:34 Dose: 100 mls/hr Insulin Human Regular (Humulin R Med) 0 units SC ACHS [facility] PRN Reason: Protocol Last Admin: 04/09/17 12:18 Dose: Not Given Lactic Acid (Lac-Hydrin 12% Cream (140 G)) 0 ea TOP BID [facility] Last Admin: 04/08/17 18:15 Dose: 1 applic Lactulose (Enulose) 20 gm PO BID [facility] Last Admin: 04/06/17 12:59 Dose: Not Given Pantoprazole Sodium (Protonix Ec Tab) 20 mg PO DAILY [facility] Last Admin: 04/09/17 10:34 Dose: 20 mg Pregabalin (Lyrica) 50 mg PO TID [facility] Last Admin: 04/09/17 10:33 Dose: 50 mg Risperidone (Risperdal Tab) 1 mg PO HS [facility] PRN Reason: Protocol Last Admin: 04/08/17 21:18 Dose: 1 mg Sevelamer HCl (Renagel) 800 mg PO TID [facility] Last Admin: 04/09/17 10:34 Dose: 800 mg Silver Sulfadiazine (Silvadene 1% 25 Gm) 25 gm TP DAILY [facility] Last Admin: 04/08/17 10:16 Dose: 25 gm Valsartan (Diovan) 320 mg PO DAILY [facility] Last Admin: 04/05/17 10:45 Dose: Not Given Vitamin B Complex/Vit C/Folic Acid (Nephro-Yudi) 1 tab PO DAILY [facility] Last Admin: 04/09/17 10:33 Dose: 1 tab - Labs Labs: 04/09/17 08:00 04/09/17 08:00 APTT 31.9 Seconds (25.1-36.5) 03/30/17 17:51 - Constitutional Appears: Well, Non-toxic, No Acute Distress - Extremities Exam Additional comments: Offloading boots present to bilateral lower extremity Dressings to left lower extremity appear clean/dry/intact Vasc: Non-palpable pedal pulses bilateral, no edema noted, TG cool to cool, CFT < 4 sec to all digits Neuro: Gross sensation diminished bilaterally. Derm: Skin appears waxy, friable, and diffusely dry. Nails are elongated, dystrophic x 10. Surgical wound to posterior left heel appears to have a mixed fibronecrotic base, exposed posterior calcaneus - tunneling noted at 12:00 of wound bed extending approximately 6 cm distal; noted to have serosanguinous drainage and mild malodor, absent purulence. Ortho: no pain on palpation to bilateral heels - Neurological Exam Neurological Exam: Alert, Awake - Psychiatric Exam Psychiatric exam: Normal Affect, Normal Mood Assessment and Plan - Assessment and Plan (Free Text) Assessment: 76 year old male POD#4 left heel wound debridement (DOS: 04/05/17), clinical OM Plan: Patient seen and evaluated with attending, Dr. Quiñones Afebrile, ESR 126 on 03/30/17, WBC 7.0 Left foot WCx 03/31/17 - proteus mirabilis, MRSA, enterococcus faecalis f/u left foot WCx 04/05/17 proteus mirabilis Left foot MRI reviewed - edema within calcaneus concerning for OM Left foot dressed with xeroform, DSD Continue multipodus boots in bed Continue abx per ID - Ceftriaxone Consult surgery for possible L BKA - recs appreciated Podiatry will continue to monitor closely while in house <Kathy Quiñones - Last Filed: 04/12/17 17:20> Objective - Vital Signs/Intake and Output Vital Signs (last 24 hours): Temp Pulse Resp BP Pulse Ox 97.8 F 72 20 157/72 H 96 04/12/17 08:00 04/12/17 09:39 04/12/17 08:00 04/12/17 09:43 04/12/17 08:00 Intake and Output: 04/12/17 04/12/17 06:59 18:59 Intake Total 0 Balance 0 - Medications Medications: Current Medications Acetaminophen (Tylenol 325mg Tab) 325 mg PO Q4H PRN PRN Reason: Fever >100.4 F Acetaminophen (Tylenol 325mg Tab) 650 mg PO Q6H PRN PRN Reason: Pain, Mild (1-3) Amlodipine Besylate (Norvasc) 10 mg PO DAILY [facility] Last Admin: 04/12/17 09:43 Dose: 10 mg Aspirin (Ecotrin) 81 mg PO DAILY [facility] Last Admin: 04/12/17 09:42 Dose: Not Given Carvedilol (Coreg) 6.25 mg PO BID [facility] Last Admin: 04/12/17 09:42 Dose: Not Given Cinacalcet (Sensipar) 30 mg PO DAILY [facility] Last Admin: 04/12/17 09:38 Dose: 30 mg Donepezil HCl (Aricept) 10 mg PO HS [facility] Last Admin: 04/11/17 23:46 Dose: Not Given Heparin Sodium (Porcine) (Heparin) 5,000 units SC Q12 [facility] PRN Reason: Protocol Last Admin: 04/12/17 09:39 Dose: 5,000 units Hydralazine HCl (Apresoline) 100 mg PO Q8 [facility] Last Admin: 04/12/17 05:49 Dose: Not Given Hydromorphone HCl (Dilaudid) 0.5 mg IVP Q15M PRN PRN Reason: Pain, moderate (4-7) Stop: 04/12/17 18:38 Hydromorphone HCl (Dilaudid) 0.5 mg IVP Q6H PRN PRN Reason: Breakthrough Ceftriaxone Sodium (Rocephin 1 Gram Ivpb (D5w)) 1 gm in 100 mls @ 100 mls/hr IVPB DAILY [facility] PRN Reason: Protocol Last Admin: 04/12/17 09:45 Dose: 100 mls/hr Insulin Human Regular (Humulin R Med) 0 units SC ACHS [facility] PRN Reason: Protocol Last Admin: 04/12/17 12:27 Dose: Not Given Lactic Acid (Lac-Hydrin 12% Cream (140 G)) 0 ea TOP BID [facility] Last Admin: 04/12/17 09:40 Dose: Not Given Lactulose (Enulose) 20 gm PO BID [facility] Last Admin: 04/12/17 09:42 Dose: Not Given Pantoprazole Sodium (Protonix Ec Tab) 20 mg PO DAILY [facility] Last Admin: 04/12/17 09:38 Dose: 20 mg Pregabalin (Lyrica) 50 mg PO TID [facility] Last Admin: 04/12/17 09:40 Dose: 50 mg Risperidone (Risperdal Tab) 1 mg PO HS [facility] PRN Reason: Protocol Last Admin: 04/11/17 23:48 Dose: Not Given Sevelamer HCl (Renagel) 800 mg PO TID [facility] Last Admin: 04/12/17 09:41 Dose: Not Given Silver Sulfadiazine (Silvadene 1% 25 Gm) 25 gm TP DAILY [facility] Last Admin: 04/12/17 09:45 Dose: 25 gm Valsartan (Diovan) 320 mg PO DAILY [facility] Last Admin: 04/12/17 09:38 Dose: 320 mg Vitamin B Complex/Vit C/Folic Acid (Nephro-Yudi) 1 tab PO DAILY [facility] Last Admin: 04/12/17 09:43 Dose: 1 tab - Labs Labs: 04/12/17 07:15 04/12/17 13:45 PT 14.0 SECONDS (9.4-12.5) H 04/11/17 06:43 INR 1.27 (0.93-1.08) H 04/11/17 06:43 APTT 35.9 Seconds (25.1-36.5) 04/10/17 10:23 Attending/Attestation - Attestation I have personally seen and examined this patient.: Yes I have fully participated in the care of the patient.: Yes I have reviewed all pertinent clinical information, including history, physical exam and plan: Yes
--- NOTE | 2017-04-09 15:49 | CP.PCM.PN ---
Subjective - Date & Time of Evaluation Date of Evaluation: 04/09/17 Time of Evaluation: 11:20 - Subjective Subjective: Comfortable, no fevers, not in distress. Objective - Vital Signs/Intake and Output Vital Signs (last 24 hours): Temp Pulse Resp BP Pulse Ox 97.9 F 62 18 154/65 H 97 04/09/17 08:00 04/09/17 10:32 04/09/17 08:00 04/09/17 10:33 04/09/17 08:00 Intake and Output: 04/09/17 04/09/17 06:59 18:59 Intake Total 450 Balance 450 - Medications Medications: Current Medications Acetaminophen (Tylenol 325mg Tab) 325 mg PO Q4H PRN PRN Reason: Fever >100.4 F Acetaminophen (Tylenol 325mg Tab) 650 mg PO Q6H PRN PRN Reason: Pain, Mild (1-3) Amlodipine Besylate (Norvasc) 10 mg PO DAILY [facility] Last Admin: 04/09/17 10:33 Dose: 10 mg Aspirin (Ecotrin) 81 mg PO DAILY [facility] Last Admin: 04/09/17 10:33 Dose: 81 mg Carvedilol (Coreg) 6.25 mg PO BID [facility] Last Admin: 04/09/17 10:32 Dose: 6.25 mg Cinacalcet (Sensipar) 30 mg PO DAILY [facility] Last Admin: 04/09/17 10:35 Dose: 30 mg Donepezil HCl (Aricept) 10 mg PO HS [facility] Last Admin: 04/08/17 21:18 Dose: 10 mg Hydralazine HCl (Apresoline) 100 mg PO Q8 [facility] Last Admin: 04/05/17 06:32 Dose: Not Given Ceftriaxone Sodium (Rocephin 1 Gram Ivpb (D5w)) 1 gm in 100 mls @ 100 mls/hr IVPB DAILY [facility] PRN Reason: Protocol Last Admin: 04/09/17 10:34 Dose: 100 mls/hr Insulin Human Regular (Humulin R Med) 0 units SC ACHS [facility] PRN Reason: Protocol Last Admin: 04/09/17 08:51 Dose: Not Given Lactic Acid (Lac-Hydrin 12% Cream (140 G)) 0 ea TOP BID [facility] Last Admin: 04/08/17 18:15 Dose: 1 applic Lactulose (Enulose) 20 gm PO BID [facility] Last Admin: 12/08/17 12:59 Dose: Not Given Pantoprazole Sodium (Protonix Ec Tab) 20 mg PO DAILY [facility] Last Admin: 04/09/17 10:34 Dose: 20 mg Pregabalin (Lyrica) 50 mg PO TID [facility] Last Admin: 04/09/17 10:33 Dose: 50 mg Risperidone (Risperdal Tab) 1 mg PO HS [facility] PRN Reason: Protocol Last Admin: 04/08/17 21:18 Dose: 1 mg Sevelamer HCl (Renagel) 800 mg PO TID [facility] Last Admin: 04/09/17 10:34 Dose: 800 mg Silver Sulfadiazine (Silvadene 1% 25 Gm) 25 gm TP DAILY [facility] Last Admin: 04/08/17 10:16 Dose: 25 gm Valsartan (Diovan) 320 mg PO DAILY [facility] Last Admin: 04/05/17 10:45 Dose: Not Given Vitamin B Complex/Vit C/Folic Acid (Nephro-Yudi) 1 tab PO DAILY [facility] Last Admin: 04/09/17 10:33 Dose: 1 tab - Labs Labs: 04/09/17 08:00 04/09/17 08:00 APTT 31.9 Seconds (25.1-36.5) 03/30/17 17:51 - Constitutional Appears: Non-toxic - Head Exam Head Exam: NORMAL INSPECTION - ENT Exam ENT Exam: Mucous Membranes Moist - Neck Exam Neck Exam: absent: Meningismus - Respiratory Exam Respiratory Exam: Decreased Breath Sounds - Cardiovascular Exam Cardiovascular Exam: +S1, +S2 - GI/Abdominal Exam GI & Abdominal Exam: Soft. absent: Tenderness Assessment and Plan - Assessment and Plan (Free Text) Plan: Assessment bilateral gangrenous heel ulcers S/P debridement, growing MRSA, PRoteus and E. faecalis; there is evidence of osteomyelitis on MRI of the left heel (calcaneus) change in sensorium, etiology to be determined Possible hemochromatosis DM HTN dyslipidemia ESRD on HD renal cancer S/P partial nephrectomy hepatitis B and C infection history of bullous pemphigoid CAD Plan continue Vanco qHD and Rocephin and would need 4-6 weeks of antibiotics with weekly ESR, CPR, CBC, CMP, Vanco trough level will continue to monitor clinically overall prognosis is poor
--- NOTE | 2017-04-09 16:18 | CP.PCM.CON ---
History of Present Illness - History of Present Illness History of Present Illness: Surgery Consult- Dr. Joy Pt does not respond to questions beyond grunting at this time, although per nursing staff he will occasionally converse but does not always make sense. History taken from EMR. Pt from [facility] where Dr. Turpin had been treating the patient for bilateral heel ulcerations for several weeks. Over the last week the L heel began to worsen so he suggested the pt got to ED for vascular workup and possible debridement. Dr. Griffith performed an arthrectomy and angioplasty of the L posterior tibial, and L peroneal arteries on 04/03/17. On the , Dr Turpin took the patient for debridement and since then the wound has apparently worsened so he requested surgery to evaluate for possible BKA. MRI shows Osteomyelitis in L heel. ROS not available due to pt mental status. PMH: ESRD on HD (TTS), DM, HTN, Dementia, ? CVA, Hx seizures, Hx Bullous pemphigoid, Chronic Hepatitis B, Hx Renal CA (RCC) PSH: Partial nephrectomy, L AVF All: NKDA SH: Hx ETOH abuse, Former Smoker Review of Systems - Review of Systems All systems: reviewed and no additional remarkable complaints except - Constitutional Constitutional: As Per HPI Past Patient History - Infectious Disease Hx of Infectious Diseases: None - Tetanus Immunizations Tetanus Immunization: Unknown - Past Medical History & Family History Past Medical History?: Yes - Past Social History Smoking Status: Never Smoked - CARDIAC Hx Pacemaker: No - PULMONARY Hx Chronic Obstructive Pulmonary Disease (COPD): Yes - NEUROLOGICAL HX Cerebrovascular Accident: Yes Hx Dementia: Yes Hx Seizures: Yes - HEENT Hx HEENT Problems: No (WEARS RX GLASSES) - RENAL Hx Chronic Kidney Disease: Yes Hx Dialysis: Yes Hx Renal Failure: Yes (CKD, ESRD w/ HD) - ENDOCRINE/METABOLIC Hx Endocrine Disorders: Yes Hx Diabetes Mellitus Type 2: Yes Hx Hypothyroidism: No - HEMATOLOGICAL/ONCOLOGICAL Hx Cancer: No - INTEGUMENTARY Hx Dermatological Problems: Yes (Bullous pemphigoid) - MUSCULOSKELETAL/RHEUMATOLOGICAL Hx Musculoskeletal Disorders: Yes Hx Arthritis: Yes Hx Unsteady Gait: Yes - GASTROINTESTINAL Hx Gastrointestinal Disorders: Yes Hx Crohn's Disease: No Hx Diverticulitis: No Hx Gall Bladder Disease: No Hx Pancreatitis: No - GENITOURINARY/GYNECOLOGICAL Hx Sexually Transmitted Disorders: No - PSYCHIATRIC Hx Anxiety: No Hx Bipolar Disorder: No Hx Depression: No Hx Post Traumatic Stress Disorder: No Hx Schizophrenia: No - SURGICAL HISTORY Hx Mastectomy: No - ANESTHESIA Hx Anesthesia Reactions: No Hx Malignant Hyperthermia: No Meds Allergies/Adverse Reactions: Allergies Allergy/AdvReac Type Severity Reaction Status Date / Time No Known Allergies Allergy Verified 03/30/17 16:29 - Medications Medications: Current Medications Acetaminophen (Tylenol 325mg Tab) 325 mg PO Q4H PRN PRN Reason: Fever >100.4 F Acetaminophen (Tylenol 325mg Tab) 650 mg PO Q6H PRN PRN Reason: Pain, Mild (1-3) Amlodipine Besylate (Norvasc) 10 mg PO DAILY [facility] Last Admin: 04/09/17 10:33 Dose: 10 mg Aspirin (Ecotrin) 81 mg PO DAILY [facility] Last Admin: 04/09/17 10:33 Dose: 81 mg Carvedilol (Coreg) 6.25 mg PO BID [facility] Last Admin: 04/09/17 10:32 Dose: 6.25 mg Cinacalcet (Sensipar) 30 mg PO DAILY [facility] Last Admin: 04/09/17 10:35 Dose: 30 mg Donepezil HCl (Aricept) 10 mg PO HS [facility] Last Admin: 04/08/17 21:18 Dose: 10 mg Hydralazine HCl (Apresoline) 100 mg PO Q8 [facility] Last Admin: 04/05/17 06:32 Dose: Not Given Ceftriaxone Sodium (Rocephin 1 Gram Ivpb (D5w)) 1 gm in 100 mls @ 100 mls/hr IVPB DAILY [facility] PRN Reason: Protocol Last Admin: 04/09/17 10:34 Dose: 100 mls/hr Insulin Human Regular (Humulin R Med) 0 units SC ACHS [facility] PRN Reason: Protocol Last Admin: 04/09/17 12:18 Dose: Not Given Lactic Acid (Lac-Hydrin 12% Cream (140 G)) 0 ea TOP BID [facility] Last Admin: 04/08/17 18:15 Dose: 1 applic Lactulose (Enulose) 20 gm PO BID [facility] Last Admin: 04/06/17 12:59 Dose: Not Given Pantoprazole Sodium (Protonix Ec Tab) 20 mg PO DAILY [facility] Last Admin: 04/09/17 10:34 Dose: 20 mg Pregabalin (Lyrica) 50 mg PO TID [facility] Last Admin: 04/09/17 10:33 Dose: 50 mg Risperidone (Risperdal Tab) 1 mg PO HS [facility] PRN Reason: Protocol Last Admin: 04/08/17 21:18 Dose: 1 mg Sevelamer HCl (Renagel) 800 mg PO TID [facility] Last Admin: 04/09/17 10:34 Dose: 800 mg Silver Sulfadiazine (Silvadene 1% 25 Gm) 25 gm TP DAILY [facility] Last Admin: 04/08/17 10:16 Dose: 25 gm Valsartan (Diovan) 320 mg PO DAILY [facility] Last Admin: 04/05/17 10:45 Dose: Not Given Vitamin B Complex/Vit C/Folic Acid (Nephro-Yudi) 1 tab PO DAILY [facility] Last Admin: 04/09/17 10:33 Dose: 1 tab Physical Exam - Constitutional Appears: Non-toxic, Chronically Ill - Head Exam Head Exam: ATRAUMATIC - ENT Exam ENT Exam: Mucous Membranes Dry - Respiratory Exam Respiratory Exam: absent: Accessory Muscle Use, Respiratory Distress - Cardiovascular Exam Cardiovascular Exam: +S1, +S2. absent: Bradycardia, Tachycardia - GI/Abdominal Exam GI & Abdominal Exam: Soft. absent: Distended, Firm, Guarding, Tenderness - Extremities Exam Additional comments: bilateral palpable popliteal and femoral pulses doppler R. tibial L. non-heeling heal ulcer - Neurological Exam Neurological exam: Altered - Skin Skin Exam: Normal Color Results - Vital Signs Recent Vital Signs: Last Vital Signs Temp 97.9 F 04/09/17 08:00 Pulse 62 04/09/17 10:32 Resp 18 04/09/17 08:00 BP 154/65 H 04/09/17 10:33 Pulse Ox 97 04/09/17 08:00 - Labs Result Diagrams: 04/09/17 08:00 04/09/17 08:00 Labs: Laboratory Results - last 24 hr 04/08/17 04/09/17 04/09/17 21:41 07:39 08:00 WBC 7.0 D RBC 3.24 L Hgb 8.7 L Hct 27.2 L MCV 84.0 MCH 26.9 MCHC 32.0 RDW 16.3 H Plt Count 72 L Gran % 77.9 H Lymph % (Auto) 12.7 L Bowie % (Auto) 6.0 Eos % (Auto) 3.1 Baso % (Auto) 0.3 Gran # 5.45 Lymph # 0.9 L Bowie # 0.4 Eos # 0.2 Baso # 0.02 ESR Sodium Potassium Chloride Carbon Dioxide Anion Gap BUN Creatinine Est GFR ( Amer) Est GFR (Non-Af Amer) POC Glucose (mg/dL) 137 H 80 Random Glucose Calcium Total Bilirubin AST ALT Alkaline Phosphatase Total Protein Albumin Globulin Albumin/Globulin Ratio 04/09/17 04/09/17 04/09/17 08:00 11:29 11:35 WBC RBC Hgb Hct MCV MCH MCHC RDW Plt Count Gran % Lymph % (Auto) Bowie % (Auto) Eos % (Auto) Baso % (Auto) Gran # Lymph # Bowie # Eos # Baso # ESR 114 H Sodium 139 Potassium 3.3 L Chloride 104 Carbon Dioxide 29 Anion Gap 10 BUN 23 H Creatinine 4.2 H Est GFR ( Amer) 17 Est GFR (Non-Af Amer) 14 POC Glucose (mg/dL) 134 H Random Glucose 81 Calcium 9.4 Total Bilirubin 0.2 AST 28 ALT 25 Alkaline Phosphatase 83 Total Protein 6.6 Albumin 2.7 L Globulin 4.0 Albumin/Globulin Ratio 0.7 L Assessment & Plan - Assessment and Plan (Free Text) Assessment: 76M with worsening chronic non healing L heel wound s/p debridement and endovascular intervention with MRI evidence of osteomyelitis Plan: Continue to monitor LLE wound. will plan for BKA on Sunday Continue abx. discussed w/ Rufino Toney PGY1
--- NOTE | 2017-04-09 16:38 | PN ---
DATE: 04/09/2017 LOCATION: Room 563, bed 1. REASON FOR CONSULTATION AND FOLLOWUP: Preoperative evaluation, risk stratification, debridement of ulcer on the heel. SUBJECTIVE: The patient is lying flat on the bed without any chest pain, shortness of breath, or palpitation. PHYSICAL EXAMINATION: VITAL SIGNS: Blood pressure is 152/69, yesterday blood pressure was 142/63, respirations 18, pulse 62, and temperature 97.9. HEENT: Head is normocephalic. Eyes, pupils normal. Conjunctivae pale. NECK: JVP low. Carotid equal. THORAX: AP diameter normal. LUNGS: Clear. CARDIOVASCULAR: S1 and S2. ABDOMEN: Soft and nontender. No organomegaly. Bowel sounds normal. EXTREMITIES: No clubbing. No cyanosis. LABORATORY DATA: WBC 7.0, hemoglobin 8.7, hematocrit 27.2, and platelets 72. Sodium 139, potassium 3.3, BUN 23, and creatinine 4.2. AST and ALT normal. Total protein 6.6 and albumin 2.7. DIAGNOSES: Endstage renal failure on dialysis; peripheral arterial disease; hypertension; ulcer of the heel, nonhealing ulcer and gangrene around it, status post debridement of left foot ulcer; hyperlipidemia, echocardiogram showed left ventricular ejection fraction of 70% and diastolic dysfunction; hypokalemia, potassium will go up. RECOMMENDATION AND PLAN: The patient will continue dialysis according to Renal. We will continue present therapy with carvedilol 6.25 b.i.d., Diovan 320 daily, aspirin 81 mg daily, Lyrica 50 mg t.i.d., amlodipine 10 mg daily, Protonix 20 p.o. daily, Renagel 800 mg p.o. t.i.d., Rocephin 1 g IV daily, Sensipar 30 mg p.o. daily, and vancomycin 1 g Sunday, Sunday, and Sunday. We will follow with you. Ulysses Gama MD
[2017-04-10 07:09] LABS: HEMATOCRIT 24.7 % (42.0-52.0); MEAN CELL VOLUME 84.3 fl (80.0-105.0); MEAN CORPUSCULAR HEMOGLOBIN 27.3 pg (25.0-35.0); MEAN CORPUSCULAR HGB CONC 32.4 g/dl (31.0-37.0); MEAN PLATELET VOLUME 10.9 fl (7.0-11.0); RED CELL DISTRIBUTION WIDTH 16.4 % (11.5-14.5); WHITE BLOOD COUNT 5.4 10^3/ul (4.5-11.0)
[2017-04-10 07:52] LABS: ALB/GLOB RATIO 0.7 (1.1-1.8); BILIRUBIN,TOTAL 0.3 mg/dL (0.2-1.3); CALCIUM 9.4 mg/dL (8.4-10.5); POTASSIUM 3.3 mmol/L (3.6-5.0); TOTAL PROTEIN 6.3 g/dL (5.8-8.3)
--- NOTE | 2017-04-10 09:11 | CP.PCM.PN ---
Subjective - Date & Time of Evaluation Date of Evaluation: 04/10/17 Time of Evaluation: 09:07 - Subjective Subjective: PGY1 Note for Dr. Gamez HPI: Patient seen and examined at bedside. Unable to communicate with. ROS Unattainable. Objective - Vital Signs/Intake and Output Vital Signs (last 24 hours): Temp Pulse Resp BP Pulse Ox 97.5 F L 60 18 157/66 H 92 L 04/10/17 08:00 04/10/17 08:00 04/10/17 08:00 04/10/17 08:00 04/10/17 08:00 Intake and Output: 04/10/17 04/10/17 06:59 18:59 Intake Total 2 Output Total 1 Balance 1 - Medications Medications: Current Medications Acetaminophen (Tylenol 325mg Tab) 325 mg PO Q4H PRN PRN Reason: Fever >100.4 F Acetaminophen (Tylenol 325mg Tab) 650 mg PO Q6H PRN PRN Reason: Pain, Mild (1-3) Amlodipine Besylate (Norvasc) 10 mg PO DAILY [facility] Last Admin: 04/09/17 10:33 Dose: 10 mg Aspirin (Ecotrin) 81 mg PO DAILY [facility] Last Admin: 04/09/17 10:33 Dose: 81 mg Carvedilol (Coreg) 6.25 mg PO BID [facility] Last Admin: 04/09/17 17:51 Dose: 6.25 mg Cinacalcet (Sensipar) 30 mg PO DAILY [facility] Last Admin: 04/09/17 10:35 Dose: 30 mg Donepezil HCl (Aricept) 10 mg PO HS [facility] Last Admin: 04/09/17 22:57 Dose: 10 mg Hydralazine HCl (Apresoline) 100 mg PO Q8 [facility] Last Admin: 04/05/17 06:32 Dose: Not Given Ceftriaxone Sodium (Rocephin 1 Gram Ivpb (D5w)) 1 gm in 100 mls @ 100 mls/hr IVPB DAILY [facility] PRN Reason: Protocol Last Admin: 04/09/17 10:34 Dose: 100 mls/hr Insulin Human Regular (Humulin R Med) 0 units SC ACHS [facility] PRN Reason: Protocol Last Admin: 04/09/17 22:07 Dose: Not Given Lactic Acid (Lac-Hydrin 12% Cream (140 G)) 0 ea TOP BID [facility] Last Admin: 04/08/17 18:15 Dose: 1 applic Lactulose (Enulose) 20 gm PO BID [facility] Last Admin: 04/06/17 12:59 Dose: Not Given Pantoprazole Sodium (Protonix Ec Tab) 20 mg PO DAILY [facility] Last Admin: 04/09/17 10:34 Dose: 20 mg Pregabalin (Lyrica) 50 mg PO TID [facility] Last Admin: 04/09/17 17:53 Dose: 50 mg Risperidone (Risperdal Tab) 1 mg PO HS [facility] PRN Reason: Protocol Last Admin: 04/09/17 22:57 Dose: 1 mg Sevelamer HCl (Renagel) 800 mg PO TID [facility] Last Admin: 04/09/17 17:53 Dose: 800 mg Silver Sulfadiazine (Silvadene 1% 25 Gm) 25 gm TP DAILY [facility] Last Admin: 04/08/17 10:16 Dose: 25 gm Valsartan (Diovan) 320 mg PO DAILY [facility] Last Admin: 04/05/17 10:45 Dose: Not Given Vitamin B Complex/Vit C/Folic Acid (Nephro-Yudi) 1 tab PO DAILY [facility] Last Admin: 04/09/17 10:33 Dose: 1 tab - Labs Labs: 04/10/17 06:45 04/10/17 06:45 APTT 31.9 Seconds (25.1-36.5) 03/30/17 17:51 - Additional Findings Additional findings: - Constitutional Appears: Non-toxic, Chronically Ill - Head Exam Head Exam: ATRAUMATIC - ENT Exam ENT Exam: Mucous Membranes Dry - Respiratory Exam Respiratory Exam: absent: Accessory Muscle Use, Respiratory Distress - Cardiovascular Exam Cardiovascular Exam: +S1, +S2. absent: Bradycardia, Tachycardia - GI/Abdominal Exam GI & Abdominal Exam: Soft. absent: Distended, Firm, Guarding, Tenderness - Extremities Exam Additional comments: bilateral palpable popliteal and femoral pulses doppler R. tibial L. non-heeling heal ulcer - Neurological Exam Neurological exam: Altered - Skin Skin Exam: Normal Color Assessment and Plan - Assessment and Plan (Free Text) Assessment: 76M with worsening chronic non healing L heel wound s/p debridement and endovascular intervention with MRI evidence of osteomyelitis Plan: * OR tomorrow for BKA * Continue medical management * SAMANTHA Hollingsworth PGY1
[2017-04-10] MEDS: cefTRIAXone 1 gm 1 GM/100 ML BAG IVPB SCH (10:11)
[2017-04-10] MEDS: Insulin Reg-MEDIUM-Coverage SC SCH ×4 (10:11→22:51)
[2017-04-10] MEDS: Multivitamin Vitamin B Complex (Nephro-Vite) Tab PO SCH (10:12)
[2017-04-10] MEDS: Pantoprazole 20 mg EC Tab PO SCH (10:12)
[2017-04-10] MEDS: Ammonium Lactate 12% Cream (140 g) TOP SCH ×2 (10:12→18:30)
[2017-04-10] MEDS: Silver Sulfadiazine 1% Cream (25 gm) TP SCH ×2 (10:13→10:14)
[2017-04-10 10:49] LABS: INR 1.25 (0.93-1.08); PARTIAL THROMBOPLASTIN TIME 35.9 Seconds (25.1-36.5)
--- NOTE | 2017-04-10 13:17 | PN ---
DATE: 04/09/2017 SUBJECTIVE: The patient is comfortable. No distress. He is stable. His mental status is better and no new complaint. PHYSICAL EXAMINATION: VITAL SIGNS: On 04/09/2017, his temperature is 98.7, heart rate 72, blood pressure 165/75, respirations 18, saturation 97%. HEAD AND NECK: Normal. No JVD. No thyromegaly. CHEST: Clear, good air entry. CARDIAC: First sound and second sound normal. ABDOMEN: Soft, nontender. EXTREMITIES: Left foot, the heel area is debrided and has a dressing on it. Right leg normal. NEUROLOGIC: The patient does have baseline dementia, but he responds to calling his name. He is eating. Back to his baseline and he moves all extremities. No focal neurologic deficits. LABORATORY STUDIES: On 04/09/2017, his white count 7, hemoglobin 8.7, hematocrit 27.2, platelets 72. His chemistry noted for sodium 139, potassium 3.3, chloride 104, bicarbonate 29, BUN 23, creatinine 4.2. Liver function test is normal. His laboratory studies as I mentioned. IMPRESSION AND PLAN: 1. Left leg osteomyelitis with cellulitis, status post debridement. The patient also had revascularizations by Dr. Jed Griffith; however, the patient will need a surgical probably below-knee amputations for treating these conditions. We will discuss, Dr. Pedraza seeing the patient; however, she is away on vacation. Dr. [place] or Dr. Alejandro Joy will evaluate the patient, probably he would need surgical below-knee amputation. We talked with the daughter for consent. 2. Peripheral vascular disease, hypertension, hypercholesteremia. Continue current therapy. 3. Chronic renal failure, on hemodialysis. 4. Diabetes. Continue insulin coverage. Blood sugar is stable, no new complaint. 5. Hypertension. We will continue Coreg. Continue hydralazine. Continue Diovan and we will monitor his blood pressure and we will follow up clinically and Norvasc also. Continue Norvasc 10 mg daily. The patient seems stable. Continue current therapy and followup. 6. Dementia with behavioral changes. The patient is getting Aricept 10 mg and getting also Risperdal 1 mg p.o. at bedtime. Continue IV antibiotic as per ID consults. Currently, the patient getting Rocephin 1 g daily, and we will continue current therapy. Barber Aguirre MD
--- NOTE | 2017-04-10 15:59 | PN ---
DATE: 04/10/2017 REASON FOR CONSULTATION AND FOLLOWUP: Preop evaluation and risk stratification for debridement. SUBJECTIVE: The patient denies any chest pain, shortness of breath or any palpitation. OBJECTIVE: GENERAL: Not in apparent distress. VITAL SIGNS: As follows, temperature afebrile, heart rate 60, and blood pressure 157/60. HEENT: PERRLA. Extraocular muscles are intact. NECK: Supple. No carotid bruit or thyromegaly. CHEST: Clear to auscultation. HEART: S1 and S2 regular. ABDOMEN: Soft. EXTREMITIES: Clubbing and cyanosis negative. LABORATORY DATA: Blood workup as follows: WBC 5.4, hemoglobin 18, hematocrit 24.7, and platelet count 73. Chemistry shows sodium 141, potassium 3.3, chloride 105, carbon dioxide 28, anion gap of 11, BUN 33, and creatinine 5.3. Total protein 6.3, albumin 2.6. IMPRESSION: End-stage renal disease, on dialysis; peripheral arterial disease, hypertension, ulcer on the heel and non-healing ulcer and gangrene around foot, status post debridement; hypertension, hyperlipidemia. Most recent echocardiogram shows preserved left ventricular ejection fraction of 70% with diastolic dysfunction. Hypokalemia, the patient is on dialysis. RECOMMENDATION: Continue dialysis. Continue low dose carvedilol. Continue Diovan. Continue aspirin. Aggressive control of blood pressure. Continue valsartan. Continue antibiotic. We will follow with you. Thank you Dr. Aguirre for providing us the opportunity in taking care of the patient, Parris Cabral. Ulysses Flaherty MD
[2017-04-10] MEDS ORDERED: Vancomycin 1gm in NS 250ml 1 GM/250 ML BAG IVPB ONE (18:00)
--- NOTE | 2017-04-10 18:23 | PN ---
DATE: 04/10/2017 SUBJECTIVE: Patient is in bed in no acute distress, nontoxic. PHYSICAL EXAMINATION: VITAL SIGNS: Temperature is 97, blood pressure is 150/60, respiratory rate of 18. HEENT: Unremarkable. NECK: Supple. LUNGS: Have decreased breath sounds. HEART: Normal S1, S2. ABDOMEN: Soft, nontender. No rebound or guarding. No masses. LABORATORY EXAMINATION: Reveals a white count of 5.4, hemoglobin of 8, platelets of 73. BUN of 33, creatinine of 5.3. Microbiology reveals the right foot Proteus mirabilis, MRSA, Enterococcus left foot with Proteus. Blood cultures are no growth. ASSESSMENT AND PLAN: A 76-year-old male seen earlier this morning in 563, bed 1 with bilateral gangrenous heel ulcer status post debridement growing methicillin-resistant Staphylococcus aureus, Proteus, and Enterococcus. Evidence of osteomyelitis on MRI of the left heel in a patient with diabetes, hypertension, possible hemochromatosis and patient with end-stage renal disease on hemodialysis. On vancomycin and ceftriaxone. The patient for possible [id number] amputation tomorrow as per surgery. Ibrahima Lara MD
--- NOTE | 2017-04-10 21:59 | CP.PCM.PN ---
Subjective - Date & Time of Evaluation Date of Evaluation: 04/10/17 Time of Evaluation: 10:30 - Subjective Subjective: 76 yo M w/ htn, dm, renal masses, PAD w/ recurrent L heel ulcer, progressive dementia, and ESRD on HD, admitted with L foot osteomyelitis; Patient denies any complaints; tolerating diet (requiring to be fed); Objective - Vital Signs/Intake and Output Vital Signs (last 24 hours): Temp Pulse Resp BP Pulse Ox 98.8 F 85 18 195/80 H 96 04/10/17 18:00 04/10/17 18:30 04/10/17 18:00 04/10/17 18:30 04/10/17 18:00 Intake and Output: 04/10/17 04/11/17 18:59 06:59 Intake Total 0 950 Balance 0 950 - Medications Medications: Current Medications Acetaminophen (Tylenol 325mg Tab) 325 mg PO Q4H PRN PRN Reason: Fever >100.4 F Acetaminophen (Tylenol 325mg Tab) 650 mg PO Q6H PRN PRN Reason: Pain, Mild (1-3) Amlodipine Besylate (Norvasc) 10 mg PO DAILY [facility] Last Admin: 04/10/17 10:13 Dose: Not Given Aspirin (Ecotrin) 81 mg PO DAILY [facility] Last Admin: 04/09/17 10:33 Dose: 81 mg Carvedilol (Coreg) 6.25 mg PO BID [facility] Last Admin: 04/10/17 18:30 Dose: 6.25 mg Cinacalcet (Sensipar) 30 mg PO DAILY [facility] Last Admin: 04/10/17 10:13 Dose: 30 mg Donepezil HCl (Aricept) 10 mg PO HS [facility] Last Admin: 04/10/17 21:39 Dose: 10 mg Hydralazine HCl (Apresoline) 100 mg PO Q8 [facility] Last Admin: 04/05/17 06:32 Dose: Not Given Ceftriaxone Sodium (Rocephin 1 Gram Ivpb (D5w)) 1 gm in 100 mls @ 100 mls/hr IVPB DAILY [facility] PRN Reason: Protocol Last Admin: 04/10/17 10:11 Dose: 100 mls/hr Insulin Human Regular (Humulin R Med) 0 units SC ACHS [facility] PRN Reason: Protocol Last Admin: 04/10/17 18:23 Dose: Not Given Lactic Acid (Lac-Hydrin 12% Cream (140 G)) 0 ea TOP BID [facility] Last Admin: 04/10/17 18:30 Dose: 1 applic Lactulose (Enulose) 20 gm PO BID [facility] Last Admin: 04/06/17 12:59 Dose: Not Given Pantoprazole Sodium (Protonix Ec Tab) 20 mg PO DAILY [facility] Last Admin: 04/10/17 10:12 Dose: 20 mg Pregabalin (Lyrica) 50 mg PO TID [facility] Last Admin: 04/10/17 18:30 Dose: 50 mg Risperidone (Risperdal Tab) 1 mg PO HS [facility] PRN Reason: Protocol Last Admin: 04/10/17 21:39 Dose: 1 mg Sevelamer HCl (Renagel) 800 mg PO TID [facility] Last Admin: 04/10/17 18:29 Dose: 800 mg Silver Sulfadiazine (Silvadene 1% 25 Gm) 25 gm TP DAILY [facility] Last Admin: 04/10/17 10:14 Dose: 25 gm Valsartan (Diovan) 320 mg PO DAILY [facility] Last Admin: 04/05/17 10:45 Dose: Not Given Vitamin B Complex/Vit C/Folic Acid (Nephro-Yudi) 1 tab PO DAILY [facility] Last Admin: 04/10/17 10:12 Dose: 1 tab - Labs Labs: 04/10/17 06:45 04/10/17 06:45 PT 13.8 SECONDS (9.4-12.5) H 04/10/17 10:23 INR 1.25 (0.93-1.08) H 04/10/17 10:23 APTT 35.9 Seconds (25.1-36.5) 04/10/17 10:23 - Constitutional Appears: Non-toxic, No Acute Distress - Eye Exam Eye Exam: Normal appearance. absent: Scleral icterus - ENT Exam ENT Exam: Mucous Membranes Moist - Respiratory Exam Respiratory Exam: Clear to Ausculation Bilateral. absent: Respiratory Distress - Cardiovascular Exam Cardiovascular Exam: RRR, +S1, +S2 - GI/Abdominal Exam GI & Abdominal Exam: Soft. absent: Distended, Tenderness - Extremities Exam Additional comments: no leg edema; - Neurological Exam Neurological Exam: Alert, Awake - Psychiatric Exam Psychiatric exam: absent: Agitated - Skin Skin Exam: Warm. absent: Cyanosis Assessment and Plan (1) ESRD (end stage renal disease) Assessment & Plan: Stable volume and electrolyte status (mild hypokalemia noted); dialyzed earlier today on higher K dialysate; next HD session for ; Status: Chronic (2) Heel ulceration Assessment & Plan: With underlying osteomyelitis; patient set for L BKA tomorrow; currently on vanco and ceftriaxone, vanco redosed after HD today, will continue to do same; if gram neg coverage will be continued as outpatient, recommend genta as this can easily be dosed in HD unit; Status: Acute (3) Anemia in ESRD (end-stage renal disease) Assessment & Plan: s/p 1 more unit prbc transfusion on HD today in prep for BKA; has EPO resistance in the setting of infection and likely renal cell CA; will continue aranesp 100 mcg weekly while inpatient; Status: Acute (4) Chronic kidney disease-mineral and bone disorder Assessment & Plan: Ca and phos at goal; continue sensipar 30 mg daily and sevelamer 1 tab w/ meals; Status: Acute (5) Hypertensive CKD, ESRD on dialysis Assessment & Plan: BP noted to be markedly elevated this evening; anti-htn meds had been on hold due to low/normal BP, gradually being restarted; giving dose of valsartan and hydralazine this evening; Status: Acute
[2017-04-11] MEDS ORDERED: Nitroglycerin 2% Ointment Foilpak UD TOP STA (00:28)
[2017-04-11 07:08] LABS: HEMATOCRIT 25.5 % (42.0-52.0); MEAN CELL VOLUME 84.7 fl (80.0-105.0); MEAN CORPUSCULAR HEMOGLOBIN 27.2 pg (25.0-35.0); MEAN CORPUSCULAR HGB CONC 32.2 g/dl (31.0-37.0); PLATELET COUNT 75 10^3/uL (120.0-450.0); RED CELL DISTRIBUTION WIDTH 16.1 % (11.5-14.5)
[2017-04-11 07:16] LABS: ALB/GLOB RATIO 0.7 (1.1-1.8); BILIRUBIN,TOTAL 0.3 mg/dL (0.2-1.3); CALCIUM 9.2 mg/dL (8.4-10.5); POTASSIUM 3.3 mmol/L (3.6-5.0); TOTAL PROTEIN 6.3 g/dL (5.8-8.3)
[2017-04-11 07:30] LABS: INR 1.27 (0.93-1.08)
[2017-04-11] MEDS: Insulin Reg-MEDIUM-Coverage SC SCH ×3 (08:00→22:47)
[2017-04-11] MEDS: Pantoprazole 20 mg EC Tab PO SCH (10:00)
[2017-04-11] MEDS: Silver Sulfadiazine 1% Cream (25 gm) TP SCH (10:00)
[2017-04-11] MEDS: Ammonium Lactate 12% Cream (140 g) TOP SCH (10:00)
[2017-04-11] MEDS: Multivitamin Vitamin B Complex (Nephro-Vite) Tab PO SCH (10:00)
--- NOTE | 2017-04-11 11:50 | CP.PCM.PN ---
Subjective - Date & Time of Evaluation Date of Evaluation: 04/11/17 Time of Evaluation: 11:46 - Subjective Subjective: PGYII progress note for nephrology, Dr. Garcia Pt is seen and examined at bedside. No acute events overnight. Patient is resting comfortably. Patient denies having any CP, SOB, abd pain, N/V/D/C. Objective - Vital Signs/Intake and Output Vital Signs (last 24 hours): Temp Pulse Resp BP Pulse Ox 98.4 F 63 20 165/71 H 99 04/11/17 08:41 04/11/17 08:41 04/11/17 08:41 04/11/17 09:09 04/11/17 08:41 Intake and Output: 04/11/17 04/11/17 06:59 18:59 Intake Total 950 Balance 950 - Medications Medications: Current Medications Acetaminophen (Tylenol 325mg Tab) 325 mg PO Q4H PRN PRN Reason: Fever >100.4 F Acetaminophen (Tylenol 325mg Tab) 650 mg PO Q6H PRN PRN Reason: Pain, Mild (1-3) Amlodipine Besylate (Norvasc) 10 mg PO DAILY [facility] Last Admin: 04/11/17 09:09 Dose: 10 mg Aspirin (Ecotrin) 81 mg PO DAILY [facility] Last Admin: 04/09/17 10:33 Dose: 81 mg Carvedilol (Coreg) 6.25 mg PO BID [facility] Last Admin: 04/11/17 11:37 Dose: 6.25 mg Cinacalcet (Sensipar) 30 mg PO DAILY [facility] Last Admin: 04/10/17 10:13 Dose: 30 mg Donepezil HCl (Aricept) 10 mg PO HS [facility] Last Admin: 04/10/17 21:39 Dose: 10 mg Hydralazine HCl (Apresoline) 100 mg PO Q8 [facility] Last Admin: 04/11/17 11:37 Dose: 100 mg Ceftriaxone Sodium (Rocephin 1 Gram Ivpb (D5w)) 1 gm in 100 mls @ 100 mls/hr IVPB DAILY [facility] PRN Reason: Protocol Last Admin: 04/10/17 10:11 Dose: 100 mls/hr Insulin Human Regular (Humulin R Med) 0 units SC ACHS [facility] PRN Reason: Protocol Last Admin: 04/10/17 22:51 Dose: Not Given Lactic Acid (Lac-Hydrin 12% Cream (140 G)) 0 ea TOP BID [facility] Last Admin: 04/10/17 18:30 Dose: 1 applic Lactulose (Enulose) 20 gm PO BID [facility] Last Admin: 04/06/17 12:59 Dose: Not Given Pantoprazole Sodium (Protonix Ec Tab) 20 mg PO DAILY [facility] Last Admin: 04/10/17 10:12 Dose: 20 mg Pregabalin (Lyrica) 50 mg PO TID [facility] Last Admin: 04/10/17 18:30 Dose: 50 mg Risperidone (Risperdal Tab) 1 mg PO HS [facility] PRN Reason: Protocol Last Admin: 04/10/17 21:39 Dose: 1 mg Sevelamer HCl (Renagel) 800 mg PO TID [facility] Last Admin: 04/10/17 18:29 Dose: 800 mg Silver Sulfadiazine (Silvadene 1% 25 Gm) 25 gm TP DAILY [facility] Last Admin: 04/10/17 10:14 Dose: 25 gm Valsartan (Diovan) 320 mg PO DAILY [facility] Last Admin: 04/11/17 09:09 Dose: 320 mg Vitamin B Complex/Vit C/Folic Acid (Nephro-Yudi) 1 tab PO DAILY [facility] Last Admin: 04/10/17 10:12 Dose: 1 tab - Labs Labs: 04/11/17 06:43 04/11/17 06:43 PT 14.0 SECONDS (9.4-12.5) H 04/11/17 06:43 INR 1.27 (0.93-1.08) H 04/11/17 06:43 APTT 35.9 Seconds (25.1-36.5) 04/10/17 10:23 - Constitutional Appears: Non-toxic, No Acute Distress - Head Exam Head Exam: ATRAUMATIC - ENT Exam ENT Exam: Mucous Membranes Moist - Respiratory Exam Respiratory Exam: Clear to Ausculation Bilateral. absent: Accessory Muscle Use , Rales, Rhonchi, Wheezes, Respiratory Distress - Cardiovascular Exam Cardiovascular Exam: REGULAR RHYTHM, +S1, +S2. absent: Gallop, Rubs, Murmur - GI/Abdominal Exam GI & Abdominal Exam: Soft, Normal Bowel Sounds, Organomegaly. absent: Distended , Firm, Guarding, Rigid, Tenderness - Extremities Exam Extremities Exam: absent: Pedal Edema, Tenderness - Neurological Exam Neurological Exam: Alert, Awake - Skin Skin Exam: Dry, Intact, Normal Color, Warm Assessment and Plan - Assessment and Plan (Free Text) Assessment: (1) ESRD (end stage renal disease) Stable volume and electrolyte status (mild hypokalemia noted). next HD session for ; (2) Heel ulceration BKA scheduled for today. currently on vanco and ceftriaxone, vanco redosed after HD today, will continue to do same; if gram neg coverage will be continued as outpatient, recommend genta as this can easily be dosed in HD unit ; (3) Anemia in ESRD (end-stage renal disease) s/p 1 more unit prbc transfusion on HD yesterday in prep for BKA; has EPO resistance in the setting of infection and likely renal cell CA; will continue aranesp 100 mcg weekly while inpatient; (4) Chronic kidney disease-mineral and bone disorder Ca and phos at goal; continue sensipar 30 mg daily and sevelamer 1 tab w/ meals; (5) Hypertensive CKD, ESRD on dialysis Patient restarted on Valsartan, hydralazine, amlodipine. continue coreg All management and orders per Dr. Garcia
--- NOTE | 2017-04-11 12:49 | PN ---
DATE: 04/10/2017 SUBJECTIVE: Patient is going for surgery by Dr. Joy tomorrow for [id number]. Patient has been on the bed here, comfortable, no distress, no pain, eating, awake and alert. He does at times get disoriented to the place and some baseline dementia. Otherwise no complaints and no distress. PHYSICAL EXAMINATION: His physical examination on 04/10/2017 is as follows: VITAL SIGNS: Blood pressure 167/70, heart rate 63, temperature 98, respirations 20, saturation 99%. HEAD AND NECK: Normal. No JVD. No thyromegaly. CHEST: Clear. Good air entry. CARDIAC: First sound and second sound normal. ABDOMEN: Soft and nontender. EXTREMITIES: Left lower extremity calcaneal area has large open wounds, status post debridements, seems to have osteomyelitis in the heel. The wound is covered with large gauze and also heel cushions. Right foot seems normal, covered with heel cushions also. NEUROLOGIC: General weakness. Patient most of the time is on the bed. He wakes up and sit on the chair, but mostly lays flat on the bed, needs assistance easily. LABORATORY STUDIES: On 04/10/2017, his white count 5.4, hemoglobin 8, hematocrit 24.7, platelets 73. Chemistry on 04/10/2017, sodium 141, potassium 3.3, chloride 105, bicarbonate 28, BUN 33, creatinine 5.3. Blood sugar 127. Calcium is 9.4. Liver function test is normal. IMPRESSION: 1. This 76-year-old male has history of peripheral vascular disease, chronic renal failure, on hemodialysis, diabetes, hypertension, who came in with ischemia and gangrene to the left foot, status post debridement, infected osteomyelitis of the bone possibly as per MRI and Podiatry recommendation to do amputation. A neurosurgical amputation would be done by Dr. Joy and family agrees. Risks have been explained to them. Patient was also seen by Dr. Jackson for blood disorders and anemia and we will follow up on that. Patient may require a unit of blood transfusion before doing surgery and already had one unit on dialysis, but he may need another one. We will discuss that further. 2. Hypertension. 3. Diabetes. 4. Dementia with behavioral changes. 5. Chronic renal failure, on hemodialysis. 6. Generalized weakness. 7. Peripheral vascular disease. PLAN: Continue current therapy and we will follow up with the patient's sourcing consultant. Barber Aguirre MD
[2017-04-11] MEDS ORDERED: Etomidate 20 mg/10ml Inj IV ONE (13:32)
[2017-04-11] MEDS ORDERED: Phenylephrine 10 mg/ml Inj ONE (13:33)
--- NOTE | 2017-04-11 13:50 | PN ---
DATE: 04/11/2017 SUBJECTIVE: The patient is in bed, in no acute distress, nontoxic. PHYSICAL EXAMINATION: VITAL SIGNS: Temperature is 98, blood pressure is 160/70, respiratory rate of 18. HEENT: Unremarkable. NECK: Supple. LUNGS: Have decreased breath sounds. HEART: Normal S1, S2. ABDOMEN: Soft. LABORATORY EXAMINATION: Reveals a white count of 6, hemoglobin of 8, platelets of 75. BUN of 21, creatinine of 3.4. Blood cultures are no growth to 5 days. Left foot cultures were Proteus. Review of orders reveals the patient to be on vancomycin and ceftriaxone. The right foot culture is MRSA and Enterococcus and Proteus also. ASSESSMENT AND PLAN: A 76-year-old male was seen earlier this morning with bilateral gangrenous ulcer status post debridement, growing methicillin-resistant Staphylococcus aureus, Proteus, Enterococcus on the MRI finding as noted. 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 On vancomycin and ceftriaxone. Possible below knee amputation. Ibrahima Lara MD
[2017-04-11] MEDS ORDERED: ePHEDrine 50 mg/ml Inj ONE (14:19)
[2017-04-11] MEDS ORDERED: HYDROmorphone 0.5 mg/0.5 ml ISec IVP PRN ×3 (14:27→18:40)
[2017-04-11] MEDS ORDERED: cefTRIAXone (Rocephin) 1 gm Inj ONE (16:05)
[2017-04-11] MEDS ORDERED: Bupivacaine 0.5% Inj(30mL) ONE ×3 (16:32→17:58)
--- NOTE | 2017-04-11 16:40 | CP.PCM.CON ---
<Chanel Schulz - Last Filed: 04/11/17 16:39> History of Present Illness - History of Present Illness History of Present Illness: Seen and examined at the bedside this afternoon, the chart was reviewed. Request for GI consult is for anemia/guaiac positive. HPI: This is a 76-year-old male with a past medical history of peripheral vascular disease, hypertension, end-stage renal disease on hemodialysis. This patient is known to our service from previous admissions. Patient is a poor historian, history obtained from nursing staff and medical chart. On routine labs, patient is noted to have trending hemoglobin and guaiac positive. The patient is from retirement resident, he denies nausea, vomiting, abdominal pain or dyspepsia. No reports of melena or bright red blood per rectum/no hematemesis during this admission. His last endoscopy was June/2015 found to have gastric polyp, superficial gastric ulcers and grade 1 varices. Currently he is pending 2 units of packed RBC and will be going to the OR this afternoon for a left below knee amputation 4 chronic left heel wound with MRI evidence of osteomyelitis. 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 Hemochromotosis serology recommended. Past medical history: Diabetes mellitus, renal cancer with partial nephrectomy, Hypertension,End-stage renal disease on dialysis, Grade 1 varices, Gastric polyp , Chronic left foot drop, Chronic hepatitis B currently not on treatment, History of syphilis, chronic left heel wound, CVA Past surgical history: Left AV fistula, partial nephrectomy Allergies: No known drug allergies Family history: Noncontributory Social history: Denies EtOH, smoking or substance abuse. Medications: Reviewed as per MAR Review of systems systems reviewed with positive finding see HPI Past Patient History - Infectious Disease Hx of Infectious Diseases: None - Tetanus Immunizations Tetanus Immunization: Unknown - Past Medical History & Family History Past Medical History?: Yes - Past Social History Smoking Status: Never Smoked - CARDIAC Hx Pacemaker: No - PULMONARY Hx Chronic Obstructive Pulmonary Disease (COPD): Yes - NEUROLOGICAL HX Cerebrovascular Accident: Yes Hx Dementia: Yes Hx Seizures: Yes - HEENT Hx HEENT Problems: No (WEARS RX GLASSES) - RENAL Hx Chronic Kidney Disease: Yes Hx Dialysis: Yes Hx Renal Failure: Yes (CKD, ESRD w/ HD) - ENDOCRINE/METABOLIC Hx Endocrine Disorders: Yes Hx Diabetes Mellitus Type 2: Yes Hx Hypothyroidism: No - HEMATOLOGICAL/ONCOLOGICAL Hx Blood Transfusions: Yes Hx Blood Transfusion Reaction: No - INTEGUMENTARY Hx Dermatological Problems: Yes (Bullous pemphigoid) - MUSCULOSKELETAL/RHEUMATOLOGICAL Hx Musculoskeletal Disorders: Yes Hx Arthritis: Yes Hx Unsteady Gait: Yes - GASTROINTESTINAL Hx Gastrointestinal Disorders: Yes Hx Crohn's Disease: No Hx Diverticulitis: No Hx Gall Bladder Disease: No Hx Pancreatitis: No - GENITOURINARY/GYNECOLOGICAL Hx Sexually Transmitted Disorders: No - PSYCHIATRIC Hx Anxiety: No Hx Bipolar Disorder: No Hx Depression: No Hx Post Traumatic Stress Disorder: No Hx Schizophrenia: No - SURGICAL HISTORY Hx Surgeries: Yes - ANESTHESIA Hx Anesthesia Reactions: No Hx Malignant Hyperthermia: No Meds Allergies/Adverse Reactions: Allergies Allergy/AdvReac Type Severity Reaction Status Date / Time No Known Allergies Allergy Verified 03/30/17 16:29 - Medications Medications: Current Medications Acetaminophen (Tylenol 325mg Tab) 325 mg PO Q4H PRN PRN Reason: Fever >100.4 F Acetaminophen (Tylenol 325mg Tab) 650 mg PO Q6H PRN PRN Reason: Pain, Mild (1-3) Amlodipine Besylate (Norvasc) 10 mg PO DAILY [facility] Last Admin: 04/11/17 09:09 Dose: 10 mg Aspirin (Ecotrin) 81 mg PO DAILY [facility] Last Admin: 04/09/17 10:33 Dose: 81 mg Carvedilol (Coreg) 6.25 mg PO BID [facility] Last Admin: 04/11/17 11:37 Dose: 6.25 mg Cinacalcet (Sensipar) 30 mg PO DAILY [facility] Last Admin: 04/10/17 10:13 Dose: 30 mg Donepezil HCl (Aricept) 10 mg PO HS [facility] Last Admin: 04/10/17 21:39 Dose: 10 mg Hydralazine HCl (Apresoline) 100 mg PO Q8 [facility] Last Admin: 04/11/17 11:37 Dose: 100 mg Ceftriaxone Sodium (Rocephin 1 Gram Ivpb (D5w)) 1 gm in 100 mls @ 100 mls/hr IVPB DAILY [facility] PRN Reason: Protocol Last Admin: 04/10/17 10:11 Dose: 100 mls/hr Insulin Human Regular (Humulin R Med) 0 units SC [facility] PRN Reason: Protocol Last Admin: 04/10/17 22:51 Dose: Not Given Lactic Acid (Lac-Hydrin 12% Cream (140 G)) 0 ea TOP BID [facility] Last Admin: 04/10/17 18:30 Dose: 1 applic Lactulose (Enulose) 20 gm PO BID [facility] Last Admin: 04/06/17 12:59 Dose: Not Given Pantoprazole Sodium (Protonix Ec Tab) 20 mg PO DAILY [facility] Last Admin: 04/10/17 10:12 Dose: 20 mg Pregabalin (Lyrica) 50 mg PO TID [facility] Last Admin: 04/10/17 18:30 Dose: 50 mg Risperidone (Risperdal Tab) 1 mg PO HS [facility] PRN Reason: Protocol Last Admin: 04/10/17 21:39 Dose: 1 mg Sevelamer HCl (Renagel) 800 mg PO TID [facility] Last Admin: 04/10/17 18:29 Dose: 800 mg Silver Sulfadiazine (Silvadene 1% 25 Gm) 25 gm TP DAILY [facility] Last Admin: 04/10/17 10:14 Dose: 25 gm Valsartan (Diovan) 320 mg PO DAILY [facility] Last Admin: 04/11/17 09:09 Dose: 320 mg Vitamin B Complex/Vit C/Folic Acid (Nephro-Yudi) 1 tab PO DAILY [facility] Last Admin: 04/10/17 10:12 Dose: 1 tab Physical Exam - Constitutional Appears: No Acute Distress - Head Exam Head Exam: NORMOCEPHALIC - Eye Exam Eye Exam: Normal appearance. absent: Scleral icterus - ENT Exam ENT Exam: Mucous Membranes Moist - Neck Exam Neck exam: Positive for: Normal Inspection - Respiratory Exam Respiratory Exam: Decreased Breath Sounds, NORMAL BREATHING PATTERN. absent: Respiratory Distress - Cardiovascular Exam Cardiovascular Exam: +S1, +S2 - GI/Abdominal Exam GI & Abdominal Exam: Normal Bowel Sounds, Soft. absent: Guarding, Organomegaly , Rebound, Tenderness - Rectal Exam Rectal Exam: absent: Black Stool, Bloody Stool, Hemorrhoids Additional comments: no mass palpated, noted to have some skin tears near anus. Stool noted on glove was started brown. - Extremities Exam Extremities exam: Negative for: calf tenderness, pedal edema - Neurological Exam Neurological exam: Alert, Altered (periods of confusion) - Skin Skin Exam: Dry, Warm Results - Vital Signs Recent Vital Signs: Last Vital Signs Temp 98.4 F 04/11/17 08:41 Pulse 63 04/11/17 08:41 Resp 20 04/11/17 08:41 BP 165/71 H 04/11/17 09:09 Pulse Ox 99 04/11/17 08:41 - Labs Result Diagrams: 04/11/17 06:43 04/11/17 06:43 Labs: Laboratory Results - last 24 hr 04/10/17 04/10/17 04/10/17 10:23 18:13 22:02 WBC RBC Hgb Hct MCV MCH MCHC RDW Plt Count PT INR Sodium Potassium Chloride Carbon Dioxide Anion Gap BUN Creatinine Est GFR ( Amer) Est GFR (Non-Af Amer) POC Glucose (mg/dL) 91 99 Random Glucose Calcium Total Bilirubin AST ALT Alkaline Phosphatase Total Protein Albumin Globulin Albumin/Globulin Ratio Stool Occult Blood Blood Type O POSITIVE Antibody Screen Negative Crossmatch See Detail BBK History Checked Patient has bt 04/10/17 04/11/17 04/11/17 22:06 06:43 06:43 WBC 6.0 RBC 3.01 L Hgb 8.2 L Hct 25.5 L MCV 84.7 MCH 27.2 MCHC 32.2 RDW 16.1 H Plt Count 75 L PT 14.0 H INR 1.27 H Sodium Potassium Chloride Carbon Dioxide Anion Gap BUN Creatinine Est GFR ( Amer) Est GFR (Non-Af Amer) POC Glucose (mg/dL) Random Glucose Calcium Total Bilirubin AST ALT Alkaline Phosphatase Total Protein Albumin Globulin Albumin/Globulin Ratio Stool Occult Blood Positive H Blood Type Antibody Screen Crossmatch BBK History Checked 04/11/17 04/11/17 04/11/17 06:43 06:43 07:46 WBC RBC Hgb Hct MCV MCH MCHC RDW Plt Count PT INR Sodium 137 Potassium 3.3 L Chloride 103 Carbon Dioxide 32 Anion Gap 6 L BUN 21 Creatinine 3.4 H Est GFR ( Amer) 21 Est GFR (Non-Af Amer) 18 POC Glucose (mg/dL) 103 Random Glucose 106 Calcium 9.2 Total Bilirubin 0.3 AST 23 ALT 31 Alkaline Phosphatase 79 Total Protein 6.3 Albumin 2.5 L Globulin 3.8 Albumin/Globulin Ratio 0.7 L Stool Occult Blood Blood Type O POSITIVE Antibody Screen Negative Crossmatch See Detail BBK History Checked Patient has bt 04/11/17 11:28 WBC RBC Hgb Hct MCV MCH MCHC RDW Plt Count PT INR Sodium Potassium Chloride Carbon Dioxide Anion Gap BUN Creatinine Est GFR ( Amer) Est GFR (Non-Af Amer) POC Glucose (mg/dL) 74 Random Glucose Calcium Total Bilirubin AST ALT Alkaline Phosphatase Total Protein Albumin Globulin Albumin/Globulin Ratio Stool Occult Blood Blood Type Antibody Screen Crossmatch BBK History Checked Assessment & Plan - Assessment and Plan (Free Text) Assessment: Assessment: Acute on chronic anemia, guaiac positive, rule out GI bleed, differentials consider is peptic ulcer disease angiodysplasia varices Chronic hepatitis B Chronic left heel wound with MRI evidence of osteomyelitis patient with history of debridement and endovascular intervention Dementia History of grade 1 varices and gastric ulcers Diabetes mellitus End stage renal disease on dialysis History of renal cancer with partial nephrectomy Hypertension Plan: Patient in the process of receiving blood transfusion, planned for 2 units The patient is for OR for BKA today Monitor H&H and transfuse as necessary Continue GI prophylaxis, on low dose Protonix 20 mg daily Patient would benefit from endoscopic evaluation when optimal Thank you for this consult and for allowing us to participate in your patient's care. Further recommendations based upon clinical course. Seen and discussed with Dr. Huber. <Liss Huber V - Last Filed: 04/11/17 22:58> Meds - Medications Medications: Current Medications Acetaminophen (Tylenol 325mg Tab) 325 mg PO Q4H PRN PRN Reason: Fever >100.4 F Acetaminophen (Tylenol 325mg Tab) 650 mg PO Q6H PRN PRN Reason: Pain, Mild (1-3) Amlodipine Besylate (Norvasc) 10 mg PO DAILY [facility] Last Admin: 04/11/17 09:09 Dose: 10 mg Aspirin (Ecotrin) 81 mg PO DAILY [facility] Last Admin: 04/09/17 10:33 Dose: 81 mg Carvedilol (Coreg) 6.25 mg PO BID [facility] Last Admin: 04/11/17 11:37 Dose: 6.25 mg Cinacalcet (Sensipar) 30 mg PO DAILY [facility] Last Admin: 04/11/17 10:11 Dose: Not Given Donepezil HCl (Aricept) 10 mg PO HS [facility] Last Admin: 04/10/17 21:39 Dose: 10 mg Heparin Sodium (Porcine) (Heparin) 5,000 units SC Q12 [facility] PRN Reason: Protocol Hydralazine HCl (Apresoline) 100 mg PO Q8 [facility] Last Admin: 04/11/17 14:00 Dose: Not Given Hydromorphone HCl (Dilaudid) 0.5 mg IVP Q15M PRN PRN Reason: Pain, moderate (4-7) Stop: 04/12/17 18:38 Hydromorphone HCl (Dilaudid) 0.5 mg IVP Q6H PRN PRN Reason: Breakthrough Ceftriaxone Sodium (Rocephin 1 Gram Ivpb (D5w)) 1 gm in 100 mls @ 100 mls/hr IVPB DAILY [facility] PRN Reason: Protocol Last Admin: 04/11/17 19:53 Dose: 100 mls/hr Sodium Chloride (Sodium Chloride 0.9%) 100 mls @ 90 mls/hr IV .Q1H7M [facility] Insulin Human Regular (Humulin R Med) 0 units SC ACHS [facility] PRN Reason: Protocol Last Admin: 04/11/17 11:30 Dose: Not Given Lactic Acid (Lac-Hydrin 12% Cream (140 G)) 0 ea TOP BID [facility] Last Admin: 04/11/17 10:00 Dose: Not Given Lactulose (Enulose) 20 gm PO BID [facility] Last Admin: 04/06/17 12:59 Dose: Not Given Pantoprazole Sodium (Protonix Ec Tab) 20 mg PO DAILY [facility] Last Admin: 04/11/17 10:00 Dose: Not Given Pregabalin (Lyrica) 50 mg PO TID [facility] Last Admin: 04/11/17 10:00 Dose: Not Given Risperidone (Risperdal Tab) 1 mg PO HS [facility] PRN Reason: Protocol Last Admin: 04/10/17 21:39 Dose: 1 mg Sevelamer HCl (Renagel) 800 mg PO TID [facility] Last Admin: 04/11/17 10:00 Dose: Not Given Silver Sulfadiazine (Silvadene 1% 25 Gm) 25 gm TP DAILY [facility] Last Admin: 04/11/17 10:00 Dose: 25 gm Valsartan (Diovan) 320 mg PO DAILY [facility] Last Admin: 04/11/17 09:09 Dose: 320 mg Vitamin B Complex/Vit C/Folic Acid (Nephro-Yudi) 1 tab PO DAILY [facility] Last Admin: 04/11/17 10:00 Dose: Not Given Results - Vital Signs Recent Vital Signs: Last Vital Signs Temp 98.4 F 04/11/17 19:39 Pulse 58 L 04/11/17 19:39 Resp 17 04/11/17 19:39 BP 106/45 L 04/11/17 19:39 Pulse Ox 100 04/11/17 19:39 - Labs Result Diagrams: 04/11/17 06:43 04/11/17 06:43 Labs: Laboratory Results - last 24 hr 04/10/17 04/10/17 04/11/17 10:23 22:06 06:43 WBC RBC Hgb Hct MCV MCH MCHC RDW Plt Count PT 14.0 H INR 1.27 H Sodium Potassium Chloride Carbon Dioxide Anion Gap BUN Creatinine Est GFR ( Amer) Est GFR (Non-Af Amer) POC Glucose (mg/dL) Random Glucose Calcium Total Bilirubin AST ALT Alkaline Phosphatase Total Protein Albumin Globulin Albumin/Globulin Ratio Stool Occult Blood Positive H Blood Type O POSITIVE Antibody Screen Negative Crossmatch See Detail BBK History Checked Patient has bt 04/11/17 04/11/17 04/11/17 06:43 06:43 06:43 WBC 6.0 RBC 3.01 L Hgb 8.2 L Hct 25.5 L MCV 84.7 MCH 27.2 MCHC 32.2 RDW 16.1 H Plt Count 75 L PT INR Sodium 137 Potassium 3.3 L Chloride 103 Carbon Dioxide 32 Anion Gap 6 L BUN 21 Creatinine 3.4 H Est GFR ( Amer) 21 Est GFR (Non-Af Amer) 18 POC Glucose (mg/dL) Random Glucose 106 Calcium 9.2 Total Bilirubin 0.3 AST 23 ALT 31 Alkaline Phosphatase 79 Total Protein 6.3 Albumin 2.5 L Globulin 3.8 Albumin/Globulin Ratio 0.7 L Stool Occult Blood Blood Type O POSITIVE Antibody Screen Negative Crossmatch See Detail BBK History Checked Patient has bt 04/11/17 04/11/17 04/11/17 07:46 11:28 19:57 WBC RBC Hgb Hct MCV MCH MCHC RDW Plt Count PT INR Sodium Potassium Chloride Carbon Dioxide Anion Gap BUN Creatinine Est GFR ( Amer) Est GFR (Non-Af Amer) POC Glucose (mg/dL) 103 74 97 Random Glucose Calcium Total Bilirubin AST ALT Alkaline Phosphatase Total Protein Albumin Globulin Albumin/Globulin Ratio Stool Occult Blood Blood Type Antibody Screen Crossmatch BBK History Checked Attending/Attestation - Attestation I have personally seen and examined this patient.: Yes I have fully participated in the care of the patient.: Yes I have reviewed all pertinent clinical information: Yes Notes (Text): This is an addendum to GI consult report dictated by Chanel Schulz APN.The patient was seen and examined earlier. Medical records, lab studies, imagings were reviewed. Last 24 hours events reviewed. Agreed with the above treatment plan as outlined in Chanel Schulz APN's notes the with the addition of the following Patient is scheduled for a bony amputation today His active problems include anemia with evidence of upper GI bleeding guaiac- positive stools Chronic hepatitis B was on Viread presently not on medication Cirrhosis of the liver status post EGD last year. 1 esophageal varices Other comorbidities include diabetic gastroparesis history of renal cancer in stage renal disease would recommend 1. Follow up of the hemoglobin hematocrit and transfuse as needed 2. Consider repeating the upper GI endoscopy, previous endoscopy evaluation noticed 3. Continue H2 neo 4. Ultrasound scan of the abdomen to rule out any focal liver lesion 5. Continue the present management, will discuss with Dr. Aguirre 04/11/17 22:56
--- NOTE | 2017-04-11 18:29 | PCM.SURG1 ---
Surgeon's Initial Post Op Note - Surgeon's Notes Surgeon: Rufino Eye Surgeon: PGY4, PGY1, Darrick PGY1 Type of Anesthesia: General Endo Pre-Operative Diagnosis: PVD, Nonhealing left lower extremity ulcer Operative Findings: PVD, Nonhealing L. Lower extremity Ulcer Post-Operative Diagnosis: PVD, Nonhealing L. Lower extremity Ulcer Operation Performed: L. Above the knee amputation Specimen/Specimens Removed: L. Leg Estimated Blood Loss: EBL {In ML}: 200 Blood Products Given: PRBC (1 unit) Drains Used: No Drains Post-Op Condition: Good Date of Surgery/Procedure: 04/11/17 Time of Surgery/Procedure: 18:34
[2017-04-11] MEDS ORDERED: Sodium Chloride 0.9% 1,000 ML IV SCH (18:45)
[2017-04-11] MEDS ORDERED: Sodium Chloride 0.9% 100 ML IV SCH (18:45)
[2017-04-11] MEDS: cefTRIAXone 1 gm 1 GM/100 ML BAG IVPB SCH (19:53)
--- NOTE | 2017-04-11 21:09 | PN ---
DATE: 04/11/2017 REASON FOR CONSULTATION: Preoperative evaluation, risk stratification for debridement, possible amputation today. SUBJECTIVE: The patient denies any chest pain, shortness of breath, any palpitation. Objectively, lying flat in the bed, seen in recovery area, going for amputation today. PHYSICAL EXAMINATION: As follows: VITAL SIGNS: Temperature afebrile, heart rate 60, blood pressure 164/75. HEENT: PERRLA. Extraocular muscles intact. NECK: Supple. No carotid bruits. No thyromegaly. CHEST: Clear to auscultation. HEART: S1, S2 regular. ABDOMEN: Soft. EXTREMITIES: Clubbing, cyanosis negative. Blood workup as follows: WBC 6, hemoglobin 8.2, hematocrit 25.5, platelet count 75. Chemistry shows sodium 132, potassium 3.3, chloride of 103, carbon dioxide 32, anion gap of 16, BUN 21, creatinine 3.4. Total protein 6.3, albumin 2.5, albumin/globulin ratio 0.7. IMPRESSION: 1. Peripheral artery disease, nonhealing ulcer for amputation today. 2. End-stage renal disease, on dialysis. 3. Extensive debridement. 4. Hypertension. 5. Hyperlipidemia. 6. Most recent echo showed preserved ejection fraction of 70%. 7. Hyperkalemia. RECOMMENDATIONS: Continue dialysis. Continue aspirin. Aggressive control of blood pressure. The patient for amputation today. Risks, benefits amputation, no absolute contraindication. Thank you Dr. Aguirre for providing us the opportunity in taking care of the patient. Ulysses Flaherty MD
[2017-04-12 07:33] LABS: BASO # 0.01 K/mm3 (0.0-2.0); BASO % 0.1 % (0.0-3.0); EOS # 0.1 (0.0-0.7); EOS % 1.7 % (1.5-5.0); GRAN # 6.15 (1.4-6.5); GRAN % 79.7 % (50.0-68.0); HEMATOCRIT 27.8 % (42.0-52.0); LYMPH # 0.8 (1.2-3.4); LYMPH % 10.2 % (22.0-35.0); MEAN CELL VOLUME 84.5 fl (80.0-105.0); MEAN CORPUSCULAR HEMOGLOBIN 28.3 pg (25.0-35.0); MEAN CORPUSCULAR HGB CONC 33.5 g/dl (31.0-37.0); MEAN PLATELET VOLUME 10.9 fl (7.0-11.0); MONO # 0.6 (0.1-0.6); MONO % 8.3 % (1.0-6.0); RED CELL DISTRIBUTION WIDTH 15.8 % (11.5-14.5); WHITE BLOOD COUNT 7.7 10^3/ul (4.5-11.0)
[2017-04-12 07:46] LABS: ALB/GLOB RATIO 0.7 (1.1-1.8); BILIRUBIN,TOTAL 0.2 mg/dL (0.2-1.3); CALCIUM 9.6 mg/dL (8.4-10.5); POTASSIUM 3.9 mmol/L (3.6-5.0); TOTAL PROTEIN 5.8 g/dL (5.8-8.3)
--- NOTE | 2017-04-12 08:26 | CP.PCM.PN ---
Subjective - Date & Time of Evaluation Date of Evaluation: 04/12/17 Time of Evaluation: 08:18 - Subjective Subjective: PGYII progress note for nephrology, Dr. Garcia Pt is seen and examined at bedside. No acute events overnight. Patient is s/p L above the knee amputation POD #1. Denies having any CP, SOB, abd pain, N/v/D/ C. Objective - Vital Signs/Intake and Output Vital Signs (last 24 hours): Temp Pulse Resp BP Pulse Ox 97.4 F L 68 18 144/69 100 04/12/17 00:01 04/12/17 05:49 04/12/17 00:01 04/12/17 05:49 04/12/17 00:01 Intake and Output: 04/12/17 04/12/17 06:59 18:59 Intake Total 0 Balance 0 - Medications Medications: Current Medications Acetaminophen (Tylenol 325mg Tab) 325 mg PO Q4H PRN PRN Reason: Fever >100.4 F Acetaminophen (Tylenol 325mg Tab) 650 mg PO Q6H PRN PRN Reason: Pain, Mild (1-3) Amlodipine Besylate (Norvasc) 10 mg PO DAILY [facility] Last Admin: 04/11/17 09:09 Dose: 10 mg Aspirin (Ecotrin) 81 mg PO DAILY [facility] Last Admin: 04/09/17 10:33 Dose: 81 mg Carvedilol (Coreg) 6.25 mg PO BID [facility] Last Admin: 04/11/17 11:37 Dose: 6.25 mg Cinacalcet (Sensipar) 30 mg PO DAILY [facility] Last Admin: 04/11/17 10:11 Dose: Not Given Donepezil HCl (Aricept) 10 mg PO HS [facility] Last Admin: 04/11/17 23:46 Dose: Not Given Heparin Sodium (Porcine) (Heparin) 5,000 units SC Q12 [facility] PRN Reason: Protocol Hydralazine HCl (Apresoline) 100 mg PO Q8 [facility] Last Admin: 04/12/17 05:49 Dose: Not Given Hydromorphone HCl (Dilaudid) 0.5 mg IVP Q15M PRN PRN Reason: Pain, moderate (4-7) Stop: 04/12/17 18:38 Hydromorphone HCl (Dilaudid) 0.5 mg IVP Q6H PRN PRN Reason: Breakthrough Ceftriaxone Sodium (Rocephin 1 Gram Ivpb (D5w)) 1 gm in 100 mls @ 100 mls/hr IVPB DAILY [facility] PRN Reason: Protocol Last Admin: 04/11/17 19:53 Dose: 100 mls/hr Sodium Chloride (Sodium Chloride 0.9%) 100 mls @ 90 mls/hr IV .Q1H7M [facility] Insulin Human Regular (Humulin R Med) 0 units SC ACHS [facility] PRN Reason: Protocol Last Admin: 04/11/17 22:47 Dose: Not Given Lactic Acid (Lac-Hydrin 12% Cream (140 G)) 0 ea TOP BID [facility] Last Admin: 04/11/17 10:00 Dose: Not Given Lactulose (Enulose) 20 gm PO BID [facility] Last Admin: 04/06/17 12:59 Dose: Not Given Pantoprazole Sodium (Protonix Ec Tab) 20 mg PO DAILY [facility] Last Admin: 04/11/17 10:00 Dose: Not Given Pregabalin (Lyrica) 50 mg PO TID [facility] Last Admin: 04/11/17 10:00 Dose: Not Given Risperidone (Risperdal Tab) 1 mg PO HS [facility] PRN Reason: Protocol Last Admin: 04/11/17 23:48 Dose: Not Given Sevelamer HCl (Renagel) 800 mg PO TID [facility] Last Admin: 04/11/17 10:00 Dose: Not Given Silver Sulfadiazine (Silvadene 1% 25 Gm) 25 gm TP DAILY [facility] Last Admin: 04/11/17 10:00 Dose: 25 gm Valsartan (Diovan) 320 mg PO DAILY [facility] Last Admin: 04/11/17 09:09 Dose: 320 mg Vitamin B Complex/Vit C/Folic Acid (Nephro-Yudi) 1 tab PO DAILY [facility] Last Admin: 04/11/17 10:00 Dose: Not Given - Labs Labs: 04/12/17 07:15 04/12/17 07:15 PT 14.0 SECONDS (9.4-12.5) H 04/11/17 06:43 INR 1.27 (0.93-1.08) H 04/11/17 06:43 APTT 35.9 Seconds (25.1-36.5) 04/10/17 10:23 - Constitutional Appears: Non-toxic, No Acute Distress - Head Exam Head Exam: ATRAUMATIC - ENT Exam ENT Exam: Mucous Membranes Moist - Respiratory Exam Respiratory Exam: Clear to Ausculation Bilateral, NORMAL BREATHING PATTERN. absent: Rales, Rhonchi, Wheezes - Cardiovascular Exam Cardiovascular Exam: REGULAR RHYTHM, +S1, +S2. absent: Gallop, Rubs, Murmur - GI/Abdominal Exam GI & Abdominal Exam: Soft, Normal Bowel Sounds. absent: Distended, Firm, Guarding, Rigid, Tenderness, Organomegaly - Extremities Exam Extremities Exam: absent: Pedal Edema, Tenderness Additional comments: above the knee amputation with bleeding noted - Neurological Exam Neurological Exam: Alert, Awake, Oriented x3 - Psychiatric Exam Psychiatric exam: Normal Affect, Normal Mood Assessment and Plan - Assessment and Plan (Free Text) Assessment: (1) ESRD (end stage renal disease) Stable volume and electrolyte status. Scheduled for dialysis today (2) Heel ulceration S/P Left above the knee amputation POD #1. currently on vanco and ceftriaxone, vanco redosed after HD today, will continue to do same; if gram neg coverage will be continued as outpatient, recommend genta as this can easily be dosed in HD unit; Local pain management with pump (3) Anemia Patient is noted to have positive stool guiac. GI is consulted and recommend endoscopy evaluation in future. Has EPO resistance in the setting of infection and likely renal cell CA; will continue aranesp 100 mcg weekly while inpatient; (4) Chronic kidney disease-mineral and bone disorder Ca and phos at goal; continue sensipar 30 mg daily and sevelamer 1 tab w/ meals; (5) Hypertensive CKD, ESRD on dialysis Patient restarted on Valsartan, hydralazine, amlodipine. continue coreg All management and orders per Dr. Garcia
[2017-04-12] MEDS: Pantoprazole 20 mg EC Tab PO SCH (09:38)
[2017-04-12] MEDS: Ammonium Lactate 12% Cream (140 g) TOP SCH ×3 (09:40→18:52)
[2017-04-12] MEDS: Insulin Reg-MEDIUM-Coverage SC SCH ×5 (09:41→22:32)
[2017-04-12] MEDS: Multivitamin Vitamin B Complex (Nephro-Vite) Tab PO SCH (09:43)
[2017-04-12] MEDS: Silver Sulfadiazine 1% Cream (25 gm) TP SCH (09:45)
[2017-04-12] MEDS: cefTRIAXone 1 gm 1 GM/100 ML BAG IVPB SCH (09:45)
--- NOTE | 2017-04-12 11:49 | CP.PCM.PN ---
Subjective - Date & Time of Evaluation Date of Evaluation: 04/12/17 Time of Evaluation: 11:46 - Subjective Subjective: PGY1 Note for Dr. Joy HPI: Patient seen and examined at bedside. Tolerated procedure well. ROS unattainable. Does not appropriately answer questions. Objective - Vital Signs/Intake and Output Vital Signs (last 24 hours): Temp Pulse Resp BP Pulse Ox 97.8 F 72 20 157/72 H 96 04/12/17 08:00 04/12/17 09:39 04/12/17 08:00 04/12/17 09:43 04/12/17 08:00 Intake and Output: 04/12/17 04/12/17 06:59 18:59 Intake Total 0 Balance 0 - Medications Medications: Current Medications Acetaminophen (Tylenol 325mg Tab) 325 mg PO Q4H PRN PRN Reason: Fever >100.4 F Acetaminophen (Tylenol 325mg Tab) 650 mg PO Q6H PRN PRN Reason: Pain, Mild (1-3) Amlodipine Besylate (Norvasc) 10 mg PO DAILY [facility] Last Admin: 04/12/17 09:43 Dose: 10 mg Aspirin (Ecotrin) 81 mg PO DAILY [facility] Last Admin: 04/12/17 09:42 Dose: Not Given Carvedilol (Coreg) 6.25 mg PO BID [facility] Last Admin: 04/12/17 09:42 Dose: Not Given Cinacalcet (Sensipar) 30 mg PO DAILY [facility] Last Admin: 04/12/17 09:38 Dose: 30 mg Donepezil HCl (Aricept) 10 mg PO HS [facility] Last Admin: 04/11/17 23:46 Dose: Not Given Heparin Sodium (Porcine) (Heparin) 5,000 units SC Q12 [facility] PRN Reason: Protocol Last Admin: 04/12/17 09:39 Dose: 5,000 units Hydralazine HCl (Apresoline) 100 mg PO Q8 [facility] Last Admin: 04/12/17 05:49 Dose: Not Given Hydromorphone HCl (Dilaudid) 0.5 mg IVP Q15M PRN PRN Reason: Pain, moderate (4-7) Stop: 04/12/17 18:38 Hydromorphone HCl (Dilaudid) 0.5 mg IVP Q6H PRN PRN Reason: Breakthrough Ceftriaxone Sodium (Rocephin 1 Gram Ivpb (D5w)) 1 gm in 100 mls @ 100 mls/hr IVPB DAILY [facility] PRN Reason: Protocol Last Admin: 04/12/17 09:45 Dose: 100 mls/hr Insulin Human Regular (Humulin R Med) 0 units SC ACHS [facility] PRN Reason: Protocol Last Admin: 04/12/17 09:44 Dose: Not Given Lactic Acid (Lac-Hydrin 12% Cream (140 G)) 0 ea TOP BID [facility] Last Admin: 04/12/17 09:40 Dose: Not Given Lactulose (Enulose) 20 gm PO BID [facility] Last Admin: 04/12/17 09:42 Dose: Not Given Pantoprazole Sodium (Protonix Ec Tab) 20 mg PO DAILY [facility] Last Admin: 04/12/17 09:38 Dose: 20 mg Pregabalin (Lyrica) 50 mg PO TID [facility] Last Admin: 04/12/17 09:40 Dose: 50 mg Risperidone (Risperdal Tab) 1 mg PO HS [facility] PRN Reason: Protocol Last Admin: 04/11/17 23:48 Dose: Not Given Sevelamer HCl (Renagel) 800 mg PO TID [facility] Last Admin: 04/12/17 09:41 Dose: Not Given Silver Sulfadiazine (Silvadene 1% 25 Gm) 25 gm TP DAILY [facility] Last Admin: 04/12/17 09:45 Dose: 25 gm Valsartan (Diovan) 320 mg PO DAILY [facility] Last Admin: 04/12/17 09:38 Dose: 320 mg Vitamin B Complex/Vit C/Folic Acid (Nephro-Yudi) 1 tab PO DAILY [facility] Last Admin: 04/12/17 09:43 Dose: 1 tab - Labs Labs: 04/12/17 07:15 04/12/17 07:15 PT 14.0 SECONDS (9.4-12.5) H 04/11/17 06:43 INR 1.27 (0.93-1.08) H 04/11/17 06:43 APTT 35.9 Seconds (25.1-36.5) 04/10/17 10:23 - Constitutional Appears: Non-toxic, Chronically Ill - Head Exam Head Exam: ATRAUMATIC, NORMAL INSPECTION, NORMOCEPHALIC - Eye Exam Eye Exam: EOMI Pupil Exam: NORMAL ACCOMODATION - ENT Exam ENT Exam: Mucous Membranes Moist - Respiratory Exam Respiratory Exam: Clear to Ausculation Bilateral, NORMAL BREATHING PATTERN - Cardiovascular Exam Cardiovascular Exam: REGULAR RHYTHM - GI/Abdominal Exam GI & Abdominal Exam: Soft, Normal Bowel Sounds. absent: Distended, Tenderness - Extremities Exam Additional comments: Sally GARZA. bandage changed today. had stained blood on it earlier today but was changed. Minimal drainage since that point. - Neurological Exam Additional comments: AOx2 Assessment and Plan - Assessment and Plan (Free Text) Assessment: 76M s/p LTino GARZA POD #1 Plan: * Some stained blood on dressing today. It was changed at bedside with a new stocking and kerlex/lio bandage. No active bleeding * Continue medical management * will continue to monitor wound * SAMANTHA Hollingsworth PGY1
--- NOTE | 2017-04-12 12:31 | CP.PCM.PN ---
Subjective - Date & Time of Evaluation Date of Evaluation: 04/10/17 Time of Evaluation: 17:00 - Subjective Subjective: Alert,offers no complaints. Objective - Vital Signs/Intake and Output Vital Signs (last 24 hours): Temp Pulse Resp BP Pulse Ox 97.8 F 72 20 157/72 H 96 04/12/17 08:00 04/12/17 09:39 04/12/17 08:00 04/12/17 09:43 04/12/17 08:00 Intake and Output: 04/12/17 04/12/17 06:59 18:59 Intake Total 0 Balance 0 - Medications Medications: Current Medications Acetaminophen (Tylenol 325mg Tab) 325 mg PO Q4H PRN PRN Reason: Fever >100.4 F Acetaminophen (Tylenol 325mg Tab) 650 mg PO Q6H PRN PRN Reason: Pain, Mild (1-3) Amlodipine Besylate (Norvasc) 10 mg PO DAILY [facility] Last Admin: 04/12/17 09:43 Dose: 10 mg Aspirin (Ecotrin) 81 mg PO DAILY [facility] Last Admin: 04/12/17 09:42 Dose: Not Given Carvedilol (Coreg) 6.25 mg PO BID [facility] Last Admin: 04/12/17 09:42 Dose: Not Given Cinacalcet (Sensipar) 30 mg PO DAILY [facility] Last Admin: 04/12/17 09:38 Dose: 30 mg Donepezil HCl (Aricept) 10 mg PO HS [facility] Last Admin: 04/11/17 23:46 Dose: Not Given Heparin Sodium (Porcine) (Heparin) 5,000 units SC Q12 [facility] PRN Reason: Protocol Last Admin: 04/12/17 09:39 Dose: 5,000 units Hydralazine HCl (Apresoline) 100 mg PO Q8 [facility] Last Admin: 04/12/17 05:49 Dose: Not Given Hydromorphone HCl (Dilaudid) 0.5 mg IVP Q15M PRN PRN Reason: Pain, moderate (4-7) Stop: 04/12/17 18:38 Hydromorphone HCl (Dilaudid) 0.5 mg IVP Q6H PRN PRN Reason: Breakthrough Ceftriaxone Sodium (Rocephin 1 Gram Ivpb (D5w)) 1 gm in 100 mls @ 100 mls/hr IVPB DAILY [facility] PRN Reason: Protocol Last Admin: 04/12/17 09:45 Dose: 100 mls/hr Insulin Human Regular (Humulin R Med) 0 units SC ACHS [facility] PRN Reason: Protocol Last Admin: 04/12/17 12:27 Dose: Not Given Lactic Acid (Lac-Hydrin 12% Cream (140 G)) 0 ea TOP BID [facility] Last Admin: 04/12/17 09:40 Dose: Not Given Lactulose (Enulose) 20 gm PO BID [facility] Last Admin: 04/12/17 09:42 Dose: Not Given Pantoprazole Sodium (Protonix Ec Tab) 20 mg PO DAILY [facility] Last Admin: 04/12/17 09:38 Dose: 20 mg Pregabalin (Lyrica) 50 mg PO TID [facility] Last Admin: 04/12/17 09:40 Dose: 50 mg Risperidone (Risperdal Tab) 1 mg PO HS [facility] PRN Reason: Protocol Last Admin: 04/11/17 23:48 Dose: Not Given Sevelamer HCl (Renagel) 800 mg PO TID [facility] Last Admin: 04/12/17 09:41 Dose: Not Given Silver Sulfadiazine (Silvadene 1% 25 Gm) 25 gm TP DAILY [facility] Last Admin: 04/12/17 09:45 Dose: 25 gm Valsartan (Diovan) 320 mg PO DAILY [facility] Last Admin: 04/12/17 09:38 Dose: 320 mg Vitamin B Complex/Vit C/Folic Acid (Nephro-Yudi) 1 tab PO DAILY [facility] Last Admin: 04/12/17 09:43 Dose: 1 tab - Labs Labs: 04/12/17 07:15 04/12/17 07:15 PT 14.0 SECONDS (9.4-12.5) H 04/11/17 06:43 INR 1.27 (0.93-1.08) H 04/11/17 06:43 APTT 35.9 Seconds (25.1-36.5) 04/10/17 10:23 - Constitutional Appears: Chronically Ill - Eye Exam Eye Exam: Normal appearance Pupil Exam: NORMAL ACCOMODATION - ENT Exam ENT Exam: Mucous Membranes Moist, Normal Oropharynx - Respiratory Exam Respiratory Exam: Decreased Breath Sounds, NORMAL BREATHING PATTERN - Cardiovascular Exam Cardiovascular Exam: REGULAR RHYTHM, +S1, +S2 - GI/Abdominal Exam GI & Abdominal Exam: Soft, Normal Bowel Sounds - Extremities Exam Additional comments: left heel ulcer - Skin Skin Exam: Dry, Warm Assessment and Plan - Assessment and Plan (Free Text) Assessment: 76 year old male with history of ESRD, HD dependent, DM who is admitted with sepsis,left foot ulcer The patient is a resident of [place], [place]. He is alert but has periods of confusion. He does not actively engage in conversation. Patients girlfriend at bedside. She states he has his "moods". I have tired to scheduled an appointment with patients daughter, Misti Cabral to discuss goals of care and advance care planning. Daughter works nights states she will give me a call when she is free Plan: Will sign off. Please refer again as needed
--- NOTE | 2017-04-12 13:27 | PN ---
DATE: 04/12/2017 SUBJECTIVE: The patient is seen earlier today, in no acute distress, nontoxic. PHYSICAL EXAMINATION: VITAL SIGNS: Temperature is 97, blood pressure is 150/70, respiratory rate of 16. HEENT: Unremarkable. NECK: Supple. LUNGS: Have decreased breath sounds. HEART: Normal S1, S2. ABDOMEN: Soft, nontender. LABORATORY DATA: Reveals a white count of 7.7, hemoglobin of 9, platelets of 71. Chemistries reveals a BUN of 27, creatinine of 4.7. Microbiology is noted. Blood cultures are no growth. The patient's operative note from yesterday is reviewed. The patient had left [id number] amputation. ASSESSMENT AND PLAN: This is a 76-year-old male who is seen early in 563, overall in poor condition with bilateral gangrenous ulcer status post debridement with methicillin-resistant Staphylococcus aureus, Proteus, Enterococcus, MRI. Findings noted and hypertensive patient, status post left [id number] amputation postprocedure day #1. Of note is that the methicillin-resistant Staphylococcus aureus was from the right foot and Proteus is sensitive. The left foot had Proteus only which is pansensitive. We will check on the vancomycin random level which the patient is currently on ceftriaxone and intermittent vancomycin. We will follow closely with you. Ibrahima Lara MD
--- NOTE | 2017-04-12 14:02 | PN ---
DATE: 04/11/2017 SUBJECTIVE: The patient is comfortable, sitting on the bed, comfortable, in no distress, eating. He is awake, alert. No new complaints. Responds well to calling his name. He has no pain. PHYSICAL EXAMINATION: VITAL SIGNS: On that days is as follows; temperature is 98.4, heart rate 58, blood pressure 100/42, respirations 17, and saturation 100%. HEAD AND NECK EXAMINATION: Normal. No JVD. No thyromegaly. CHEST EXAM: Clear, good air entry. CARDIAC: First sound and second sound normal. ABDOMEN: Soft, nontender. EXTREMITIES: No edema. His left heel is covered with gauze and heel cushions are on both legs. Right leg is normal. NEUROLOGIC: The patient does have chronic dementia with intermittent confusion. He seems stable now. He moves all extremities. There is no focal deficit. LABORATORY DATA: As follows; white count 6, hemoglobin 8.2, hematocrit 25.5, and platelets 75. Chemistry: Sodium 137, potassium 3.3, chloride 103, bicarbonate 32, BUN 21, creatinine 3.4, blood sugar 106, calcium 9.2. Liver function test within normal range. IMPRESSION AND PLAN: 1. Left leg osteomyelitis, cellulitis. The patient is going for surgery tomorrow. He is going to have [id number] amputation by Dr. Joy. 2. Chronic renal failure, continue hemodialysis. 3. 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 He will get another unit preoperatively. We will continue observation for H and H. We will repeat lab in the morning. 4. Hypertension. Continue his Norvasc, hydralazine, Coreg, and Diovan. We will monitor his blood pressure, sometimes his blood pressure go up 170, 160; seems to be doing okay. We will hold the blood pressure for systolic 100 or below and we will continue current therapy. Continue Rocephin 1 g as per Infectious Disease consult. We will follow up clinically. 5. Chronic dementia with behavioral changes. The patient seems doing okay with Aricept and Risperdal, he is comfortable, in no distress. Continue insulin coverage for his diabetes and will follow up clinically. The patient seen by forensic investigator and seems stable for surgery. Barber Aguirre MD
[2017-04-12 14:51] LABS: BILIRUBIN,TOTAL 0.2 mg/dL (0.2-1.3); CALCIUM 9.4 mg/dL (8.4-10.5); POTASSIUM 4.2 mmol/L (3.6-5.0)
[2017-04-12 14:54] LABS: ALB/GLOB RATIO 0.7 (1.1-1.8)
--- NOTE | 2017-04-12 16:34 | CP.PCM.PN ---
<Chanel Schulz - Last Filed: 04/12/17 16:27> Subjective - Date & Time of Evaluation Date of Evaluation: 04/12/17 Time of Evaluation: 10:40 - Subjective Subjective: S&E at bedside, chart reviewed, S?P left AKA. Patient is awake but not responding verbally or following simple commands at this time, patient has post op pain pump. No distress noted and n o acute overnight events reported. No overt Gi bleeding reported. Objective - Vital Signs/Intake and Output Vital Signs (last 24 hours): Temp Pulse Resp BP Pulse Ox 97.8 F 72 20 157/72 H 96 04/12/17 08:00 04/12/17 09:39 04/12/17 08:00 04/12/17 09:43 04/12/17 08:00 Intake and Output: 04/12/17 04/12/17 06:59 18:59 Intake Total 0 Balance 0 - Medications Medications: Current Medications Acetaminophen (Tylenol 325mg Tab) 325 mg PO Q4H PRN PRN Reason: Fever >100.4 F Acetaminophen (Tylenol 325mg Tab) 650 mg PO Q6H PRN PRN Reason: Pain, Mild (1-3) Amlodipine Besylate (Norvasc) 10 mg PO DAILY [facility] Last Admin: 04/12/17 09:43 Dose: 10 mg Aspirin (Ecotrin) 81 mg PO DAILY [facility] Last Admin: 04/12/17 09:42 Dose: Not Given Carvedilol (Coreg) 6.25 mg PO BID [facility] Last Admin: 04/12/17 09:42 Dose: Not Given Cinacalcet (Sensipar) 30 mg PO DAILY [facility] Last Admin: 04/12/17 09:38 Dose: 30 mg Donepezil HCl (Aricept) 10 mg PO HS [facility] Last Admin: 04/11/17 23:46 Dose: Not Given Heparin Sodium (Porcine) (Heparin) 5,000 units SC Q12 [facility] PRN Reason: Protocol Last Admin: 04/12/17 09:39 Dose: 5,000 units Hydralazine HCl (Apresoline) 100 mg PO Q8 [facility] Last Admin: 04/12/17 05:49 Dose: Not Given Hydromorphone HCl (Dilaudid) 0.5 mg IVP Q15M PRN PRN Reason: Pain, moderate (4-7) Stop: 04/12/17 18:38 Hydromorphone HCl (Dilaudid) 0.5 mg IVP Q6H PRN PRN Reason: Breakthrough Ceftriaxone Sodium (Rocephin 1 Gram Ivpb (D5w)) 1 gm in 100 mls @ 100 mls/hr IVPB DAILY [facility] PRN Reason: Protocol Last Admin: 04/12/17 09:45 Dose: 100 mls/hr Insulin Human Regular (Humulin R Med) 0 units SC ACHS [facility] PRN Reason: Protocol Last Admin: 04/12/17 12:27 Dose: Not Given Lactic Acid (Lac-Hydrin 12% Cream (140 G)) 0 ea TOP BID [facility] Last Admin: 04/12/17 09:40 Dose: Not Given Lactulose (Enulose) 20 gm PO BID [facility] Last Admin: 04/12/17 09:42 Dose: Not Given Pantoprazole Sodium (Protonix Ec Tab) 20 mg PO DAILY [facility] Last Admin: 04/12/17 09:38 Dose: 20 mg Pregabalin (Lyrica) 50 mg PO TID [facility] Last Admin: 04/12/17 09:40 Dose: 50 mg Risperidone (Risperdal Tab) 1 mg PO HS [facility] PRN Reason: Protocol Last Admin: 04/11/17 23:48 Dose: Not Given Sevelamer HCl (Renagel) 800 mg PO TID [facility] Last Admin: 04/12/17 09:41 Dose: Not Given Silver Sulfadiazine (Silvadene 1% 25 Gm) 25 gm TP DAILY [facility] Last Admin: 04/12/17 09:45 Dose: 25 gm Valsartan (Diovan) 320 mg PO DAILY [facility] Last Admin: 04/12/17 09:38 Dose: 320 mg Vitamin B Complex/Vit C/Folic Acid (Nephro-Yudi) 1 tab PO DAILY [facility] Last Admin: 04/12/17 09:43 Dose: 1 tab - Labs Labs: 04/12/17 07:15 04/12/17 13:45 PT 14.0 SECONDS (9.4-12.5) H 04/11/17 06:43 INR 1.27 (0.93-1.08) H 04/11/17 06:43 APTT 35.9 Seconds (25.1-36.5) 04/10/17 10:23 - Constitutional Appears: No Acute Distress - Head Exam Head Exam: NORMOCEPHALIC - Eye Exam Eye Exam: Normal appearance. absent: Scleral icterus - ENT Exam ENT Exam: Mucous Membranes Moist - Neck Exam Neck Exam: Normal Inspection - Respiratory Exam Respiratory Exam: NORMAL BREATHING PATTERN. absent: Respiratory Distress - Cardiovascular Exam Cardiovascular Exam: +S1, +S2 - GI/Abdominal Exam GI & Abdominal Exam: Soft, Normal Bowel Sounds. absent: Guarding, Tenderness, Rebound - Extremities Exam Additional comments: left stump dressing appear dry and intact. 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 hemachromatosis ,maybe secondary to multiple transfusion, will check serology and abdominal US consider restarting Viread treatment Seen and discussed with Dr. Huber. <Liss Huber V - Last Filed: 04/12/17 22:39> Objective - Vital Signs/Intake and Output Vital Signs (last 24 hours): Temp Pulse Resp BP Pulse Ox 98.3 F 68 20 137/63 96 04/12/17 18:39 04/12/17 22:30 04/12/17 08:00 04/12/17 22:30 04/12/17 08:00 Intake and Output: 04/12/17 04/13/17 18:59 06:59 Intake Total 240 Balance 240 - Medications Medications: Current Medications Acetaminophen (Tylenol 325mg Tab) 325 mg PO Q4H PRN PRN Reason: Fever >100.4 F Acetaminophen (Tylenol 325mg Tab) 650 mg PO Q6H PRN PRN Reason: Pain, Mild (1-3) Amlodipine Besylate (Norvasc) 10 mg PO DAILY [facility] Last Admin: 04/12/17 09:43 Dose: 10 mg Aspirin (Ecotrin) 81 mg PO DAILY [facility] Last Admin: 04/12/17 10:00 Dose: 81 mg Carvedilol (Coreg) 6.25 mg PO BID [facility] Last Admin: 04/12/17 18:53 Dose: 6.25 mg Cinacalcet (Sensipar) 30 mg PO DAILY [facility] Last Admin: 04/12/17 09:38 Dose: 30 mg Donepezil HCl (Aricept) 10 mg PO HS [facility] Last Admin: 04/12/17 22:31 Dose: 10 mg Heparin Sodium (Porcine) (Heparin) 5,000 units SC Q12 [facility] PRN Reason: Protocol Last Admin: 04/12/17 22:31 Dose: 5,000 units Hydralazine HCl (Apresoline) 100 mg PO Q8 [facility] Last Admin: 04/12/17 22:30 Dose: 100 mg Hydromorphone HCl (Dilaudid) 0.5 mg IVP Q6H PRN PRN Reason: Breakthrough Ceftriaxone Sodium (Rocephin 1 Gram Ivpb (D5w)) 1 gm in 100 mls @ 100 mls/hr IVPB DAILY [facility] PRN Reason: Protocol Last Admin: 04/12/17 09:45 Dose: 100 mls/hr Insulin Human Regular (Humulin R Med) 0 units SC ACHS [facility] PRN Reason: Protocol Last Admin: 04/12/17 22:32 Dose: Not Given Lactic Acid (Lac-Hydrin 12% Cream (140 G)) 0 ea TOP BID [facility] Last Admin: 04/12/17 18:52 Dose: 1 applic Lactulose (Enulose) 20 gm PO BID [facility] Last Admin: 04/12/17 18:51 Dose: 20 gm Pantoprazole Sodium (Protonix Ec Tab) 20 mg PO DAILY [facility] Last Admin: 04/12/17 09:38 Dose: 20 mg Pregabalin (Lyrica) 50 mg PO TID [facility] Last Admin: 04/12/17 18:52 Dose: 50 mg Risperidone (Risperdal Tab) 1 mg PO HS [facility] PRN Reason: Protocol Last Admin: 04/12/17 22:33 Dose: 1 mg Sevelamer HCl (Renagel) 800 mg PO TID [facility] Last Admin: 04/12/17 18:49 Dose: Not Given Silver Sulfadiazine (Silvadene 1% 25 Gm) 25 gm TP DAILY [facility] Last Admin: 04/12/17 09:45 Dose: 25 gm Valsartan (Diovan) 320 mg PO DAILY [facility] Last Admin: 04/12/17 09:38 Dose: 320 mg Vitamin B Complex/Vit C/Folic Acid (Nephro-Yudi) 1 tab PO DAILY [facility] Last Admin: 04/12/17 09:43 Dose: 1 tab - Labs Labs: 04/12/17 07:15 04/12/17 13:45 PT 14.0 SECONDS (9.4-12.5) H 04/11/17 06:43 INR 1.27 (0.93-1.08) H 04/11/17 06:43 APTT 35.9 Seconds (25.1-36.5) 04/10/17 10:23 Attending/Attestation - Attestation I have personally seen and examined this patient.: Yes I have fully participated in the care of the patient.: Yes I have reviewed all pertinent clinical information, including history, physical exam and plan: Yes Notes (Text): This is an addendum to GI progress report dictated by Chanel Schulz APN.The patient was seen and examined earlier. Medical records, lab studies, imagings were reviewed. Last 24 hours events reviewed. Agreed with the above treatment plan as outlined in Chanel Schulz APN's notes the with the addition of the following Patient comfortable Abdomen soft no tenderness Anemia and drop in blood count occult GI bleeding History of chronic hepatitis B not on viread now increase iron overload seen in liver may be secondary to the transfusions rather than hemachromatosis Request hemachromatosis genetic test Will discuss with the patient's family regarding EGD 04/12/17 22:35 04/12/17 22:38
--- NOTE | 2017-04-13 01:28 | PN ---
DATE: 04/12/2017 LOCATION: The patient in room 563, bed 1. REASON FOR CONSULTATION: End-stage renal failure, on dialysis; peripheral vascular disease; nonhealing ulcer; hypertension; hyperlipidemia; renal failure, on dialysis; status post above the knee amputation. SUBJECTIVE: The patient lying flat in bed without chest pain, shortness of breath, palpitation. PHYSICAL EXAMINATION: VITAL SIGNS: Blood pressure 139/63, respirations 20, pulse 76, temperature 97.8. HEENT: Head is normocephalic. Eyes, pupils normal; conjunctive slightly pale. NECK: JVP is low. Carotids are equal. THORAX: AP diameter normal. LUNGS: Clear. CARDIOVASCULAR: S1 and S2. EXTREMITIES: Status post amputation left knee, above-knee amputation. LABORATORY DATA: WBC 7.7, hemoglobin 9.3, hematocrit 27.8, platelets 71. Sodium 141, potassium 4.2, BUN 29, creatinine 5.2, sugar 87. AST and ALT normal. Total protein 6.0, albumin 2.5. DIAGNOSES: Peripheral vascular disease, status post amputation above-knee, left leg; end-stage renal failure, on dialysis; hypertension; hyperlipidemia; most recent echo showed normal LV ejection fraction of 70% PLAN: Continue dialysis. As per Renal, patient on hydralazine 100 mg p.o. q.8 hours, Coreg 6.25 b.i.d., Diovan 320 p.o. daily, aspirin 81 mg daily, Lyrica 50 mg p.o. t.i.d., amlodipine 10 mg daily, Renagel 800 mg t.i.d., Rocephin 1 g IV daily, and Sensipar 30 mg daily. We will continue present therapy. We will follow with you. Ulysses Gama MD
[2017-04-13] MEDS ORDERED: Oxycodone/Acetaminophen 5/325 mg Tab PO SCH (08:30)
--- NOTE | 2017-04-13 08:57 | CP.PCM.PN ---
Subjective - Date & Time of Evaluation Date of Evaluation: 04/13/17 Time of Evaluation: 08:54 - Subjective Subjective: Surgery Progress Note for Dr. Joy Pt seen and examined at bedside. No acute overnight events. Pt dressings on left AKA clean/dry/intact. Pt denies CP, SOB, nausea, vomiting, diarrhea, fever , chills, MANLEY, or dizziness. Objective - Vital Signs/Intake and Output Vital Signs (last 24 hours): Temp Pulse Resp BP Pulse Ox 98.2 F 64 18 124/60 97 04/13/17 07:30 04/13/17 07:30 04/13/17 07:30 04/13/17 07:30 04/13/17 07:30 Intake and Output: 04/13/17 04/13/17 06:59 18:59 Intake Total 240 Balance 240 - Medications Medications: Current Medications Acetaminophen (Tylenol 325mg Tab) 325 mg PO Q4H PRN PRN Reason: Fever >100.4 F Acetaminophen (Tylenol 325mg Tab) 650 mg PO Q6H PRN PRN Reason: Pain, Mild (1-3) Amlodipine Besylate (Norvasc) 10 mg PO DAILY [facility] Last Admin: 04/12/17 09:43 Dose: 10 mg Aspirin (Ecotrin) 81 mg PO DAILY [facility] Last Admin: 04/12/17 10:00 Dose: 81 mg Carvedilol (Coreg) 6.25 mg PO BID [facility] Last Admin: 04/12/17 18:53 Dose: 6.25 mg Cinacalcet (Sensipar) 30 mg PO DAILY [facility] Last Admin: 04/12/17 09:38 Dose: 30 mg Donepezil HCl (Aricept) 10 mg PO HS [facility] Last Admin: 04/12/17 22:31 Dose: 10 mg Heparin Sodium (Porcine) (Heparin) 5,000 units SC Q12 [facility] PRN Reason: Protocol Last Admin: 04/12/17 22:31 Dose: 5,000 units Hydralazine HCl (Apresoline) 100 mg PO Q8 [facility] Last Admin: 04/13/17 06:19 Dose: 100 mg Hydromorphone HCl (Dilaudid) 0.5 mg IVP Q6H PRN PRN Reason: Breakthrough Ceftriaxone Sodium (Rocephin 1 Gram Ivpb (D5w)) 1 gm in 100 mls @ 100 mls/hr IVPB DAILY [facility] PRN Reason: Protocol Last Admin: 04/12/17 09:45 Dose: 100 mls/hr Insulin Human Regular (Humulin R Med) 0 units SC ACHS [facility] PRN Reason: Protocol Last Admin: 04/12/17 22:32 Dose: Not Given Lactic Acid (Lac-Hydrin 12% Cream (140 G)) 0 ea TOP BID [facility] Last Admin: 04/12/17 18:52 Dose: 1 applic Lactulose (Enulose) 20 gm PO BID [facility] Last Admin: 04/12/17 18:51 Dose: 20 gm Oxycodone/Acetaminophen (Percocet 5/325 Mg Tab) 1 tab PO Q6H [facility] Stop: 04/16/17 08:31 Pantoprazole Sodium (Protonix Ec Tab) 20 mg PO DAILY [facility] Last Admin: 04/12/17 09:38 Dose: 20 mg Pregabalin (Lyrica) 50 mg PO TID [facility] Last Admin: 04/12/17 18:52 Dose: 50 mg Risperidone (Risperdal Tab) 1 mg PO HS [facility] PRN Reason: Protocol Last Admin: 04/12/17 22:33 Dose: 1 mg Sevelamer HCl (Renagel) 800 mg PO TID [facility] Last Admin: 04/12/17 18:49 Dose: Not Given Silver Sulfadiazine (Silvadene 1% 25 Gm) 25 gm TP DAILY [facility] Last Admin: 04/12/17 09:45 Dose: 25 gm Valsartan (Diovan) 320 mg PO DAILY [facility] Last Admin: 04/12/17 09:38 Dose: 320 mg Vitamin B Complex/Vit C/Folic Acid (Nephro-Yudi) 1 tab PO DAILY [facility] Last Admin: 04/12/17 09:43 Dose: 1 tab - Labs Labs: 04/12/17 07:15 04/12/17 13:45 PT 14.0 SECONDS (9.4-12.5) H 04/11/17 06:43 INR 1.27 (0.93-1.08) H 04/11/17 06:43 APTT 35.9 Seconds (25.1-36.5) 04/10/17 10:23 - Constitutional Appears: No Acute Distress - Eye Exam Eye Exam: Normal appearance - ENT Exam ENT Exam: Normal Exam - Respiratory Exam Respiratory Exam: NORMAL BREATHING PATTERN. absent: Accessory Muscle Use, Respiratory Distress - Cardiovascular Exam Cardiovascular Exam: RRR. absent: Gallop, Rubs, Murmur - GI/Abdominal Exam GI & Abdominal Exam: Soft. absent: Distended, Guarding, Tenderness, Rebound - Extremities Exam Additional comments: dressings c/d/i on left LLE AKA. TTP. Minimal swelling, erythema. - Neurological Exam Neurological Exam: Alert, Awake, Oriented x3 - Skin Skin Exam: Normal Color Assessment and Plan - Assessment and Plan (Free Text) Assessment: 76M s/p L. AKA POD #2 Plan: - Clear for discharge from surgical standpoint, but will continue to follow pt while inhouse - Pt should have daily dressing changes upon discharge - Follow up with Dr. Joy in office in 1-2 weeks after discharge - Medical management per primary - DW Dr. Rufino Flores, PGY1
[2017-04-13] MEDS: Multivitamin Vitamin B Complex (Nephro-Vite) Tab PO SCH (09:54)
[2017-04-13] MEDS: Insulin Reg-MEDIUM-Coverage SC SCH ×4 (09:54→23:34)
--- NOTE | 2017-04-13 09:54 | PQF ANEMIA ---
This form is a permanent part of the medical record Dr. Aguirre, Patient with hx gastric ulcer, anemia, treated with 4 UPRBC. Please specify if you are treating an acute blood loss anemia, chronic blood loss anemia, other and source so accurate coding and acuity is reflected. Clarification of your documentation is requested to better reflect the severity of illness and intensity of treatment of your patient. Indicators present [x] Anemia [x] Drop in H&H from []___ to []___ [] Hypotension [x] GI Bleed [x] Transfusion(s) [] Acute bleed other sites [] Tachycardia [] Surgical Procedure Blood Loss (expected not a complication) Other:[] Location in the medical record that reflects the above clinical findings: [] Treatment Provided: [] PHYSICIAN'S RESPONSE Based on your medical judgment of the clinical indicators outlined above, are you treating this patient for a known or suspected: [] Acute blood loss anemia [] Chronic blood loss anemia [x] Acute on Chronic blood loss anemia [] Anemia due to malignancy [] Anemia due to chemotherapy or radiation therapy [] Anemia of Chronic Disease, please specify: [xrenal failure, gi bleed chronic . guiac positive] [] Other, please indicate type of anemia []____ [] If Unable to Determine, please check the box, sign and date. Present On Admission (POA) Indicator: [x] Present at the time of admission [] Not present at the time of admission [] Clinically Undetermined In responding to this query, please exercise your independent professional judgment. The fact that a question is asked does not imply that any particular answer is desired or expected. Thank you for your clarification on this documentation. If you have any questions please call:[ ] * Thank you, [ ]Dana Vo [facility] #[id number] (please call if you have any questions). 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
[2017-04-13] MEDS: Ammonium Lactate 12% Cream (140 g) TOP SCH ×2 (09:55→18:11)
[2017-04-13] MEDS: cefTRIAXone 1 gm 1 GM/100 ML BAG IVPB SCH (09:56)
[2017-04-13] MEDS: Pantoprazole 20 mg EC Tab PO SCH (09:56)
[2017-04-13] MEDS: Silver Sulfadiazine 1% Cream (25 gm) TP SCH (09:57)
[2017-04-13] MEDS ORDERED: Oxycodone/Acetaminophen 5/325 mg Tab PO PRN (10:40)
--- NOTE | 2017-04-13 10:43 | US ---
HISTORY: r/o liver lesion COMPARISON: Mrcp 07/28/16. TECHNIQUE: Sonographic evaluation of the abdomen. FINDINGS: LIVER: Measures cm. Normal echogenicity of the liver parenchyma. No mass. No intrahepatic bile duct dilatation. GALLBLADDER: Gallstones. COMMON BILE DUCT: Measures mm. No stones. No dilatation. PANCREAS: Unremarkable as visualized. No mass. No ductal dilatation. RIGHT KIDNEY: 9.0 centimeters with a hypodense lesion in the upper pole measuring 1.7 centimeters as well as a cyst measuring 1.9 centimeters in the interpolar region. LEFT KIDNEY: 8.4 centimeters with a calcified mass in the interpolar region measuring 2.3 centimeters. SPLEEN: Normal in size and contour. No mass. AORTA: No aneurysmal dilatation. IVC: Unremarkable. OTHER FINDINGS: None. IMPRESSION: No gross liver lesion. Abnormal appearance of the kidneys.
[2017-04-13 15:12] LABS: HEMATOCRIT 25.7 % (42.0-52.0); MEAN CELL VOLUME 86.2 fl (80.0-105.0); MEAN CORPUSCULAR HEMOGLOBIN 28.2 pg (25.0-35.0); MEAN CORPUSCULAR HGB CONC 32.7 g/dl (31.0-37.0); MEAN PLATELET VOLUME 8.9 fl (7.0-11.0); RED CELL DISTRIBUTION WIDTH 16.3 % (11.5-14.5)
[2017-04-13 15:37] LABS: BLOOD GAS HEMOGLOBIN 8.9 g/dL (11.7-17.4); CARBOXYHEMOGLOBIN 2.5 % (0.5-1.5); HHB 1.4 % (0-5); METHEMOGLOBIN 1.1 % (0.0-3.0); VENOUS BLOOD GAS BASE EXCESS 10.8 mmol/L (0.0-2.0); VENOUS BLOOD HGB O2 SAT 95.1 % (95.0-98.0); VENOUS BLOOD PH 7.45 (7.32-7.43)
--- NOTE | 2017-04-13 16:22 | CT ---
PROCEDURE: CT HEAD WITHOUT CONTRAST. HISTORY: lethargy COMPARISON: None available. TECHNIQUE: Axial computed tomography images were obtained through the head/brain without intravenous contrast. Radiation dose: Total exam DLP = mGy-cm. This CT exam was performed using one or more of the following dose reduction techniques: Automated exposure control, adjustment of the mA and/or kV according to patient size, and/or use of iterative reconstruction technique. FINDINGS: HEMORRHAGE: No intracranial hemorrhage. BRAIN: No mass effect or edema. No atrophy or chronic microvascular ischemic changes. VENTRICLES: Unremarkable. No hydrocephalus. CALVARIUM: Unremarkable. PARANASAL SINUSES: Unremarkable as visualized. No significant inflammatory changes. MASTOID AIR CELLS: Unremarkable as visualized. No inflammatory changes. OTHER FINDINGS: None. IMPRESSION: Normal CT of the Head.
--- NOTE | 2017-04-13 18:45 | PN ---
DATE: 04/13/2017 SUBJECTIVE: The patient is in bed, in no acute distress, was seen early this morning in room 563. PHYSICAL EXAMINATION VITAL SIGNS: Temperature is 98, blood pressure is 120/70, respiratory rate is 16. HEENT: Unremarkable. NECK: Supple. LUNGS: Have decreased breath sounds. HEART: Normal S1 and S2. ABDOMEN: Soft and nontender. LABORATORY DATA: Laboratories are reviewed. ASSESSMENT AND PLAN: This is a 76-year-old male who was seen early today in with bilateral gangrenous ulcers, status post debridement and methicillin-resistant Staphylococcus aureus, Proteus, Enterococcus, and the patient with hypertension. The patient had left [id number] amputation post procedure day #2, and he received vancomycin during dialysis. The patient is on ceftriaxone. The patient's right foot has Proteus, methicillin-resistant Staphylococcus aureus, and Enterococcus. Proteus is sensitive to p.o. Cipro. We will follow with you. Ibrahima Lara MD
[2017-04-13 19:40] LABS: HEMATOCRIT 24.7 % (42.0-52.0); MEAN CELL VOLUME 86.7 fl (80.0-105.0); MEAN CORPUSCULAR HEMOGLOBIN 28.1 pg (25.0-35.0); MEAN CORPUSCULAR HGB CONC 32.4 g/dl (31.0-37.0); MEAN PLATELET VOLUME 10.7 fl (7.0-11.0); RED CELL DISTRIBUTION WIDTH 16.6 % (11.5-14.5)
--- NOTE | 2017-04-14 00:37 | PN ---
DATE: 04/13/2017 LOCATION: The patient in room 563, bed 1. REASON FOR CONSULTATION: End-stage renal failure, on dialysis; peripheral vascular disease; non-healing ulcer; hypertension; hyperlipidemia; renal failure, on dialysis; status post above knee amputation on the left leg. SUBJECTIVE: The patient was seen board layer today. The patient is lying flat in bed without any respiratory distress. PHYSICAL EXAMINATION: VITAL SIGNS: Blood pressure 124/56, respirations 18, pulse 69, and temperature 97.9. HEENT: Head is normocephalic. Eyes, pupils normal. Conjunctivae pale. NECK: JVP is low. Carotids are equal. THORAX: AP diameter normal. LUNGS: Clear. CARDIOVASCULAR: S1 and S2. ABDOMEN: Soft and nontender. No organomegaly. EXTREMITIES: Left leg above-knee amputation. LABORATORY DATA: WBC 7.0, hemoglobin 8.0, hematocrit 24.7, platelets 68, sugar 120. On 04/11/2017, the patient's electrolytes showed sodium 137, potassium 3.3, BUN 21, creatinine 3.4, sugar was 106. AST and ALT normal. Total protein 6.3, albumin 2.5. DIAGNOSES: Peripheral vascular disease, status post amputation above-knee on the left leg; end-stage renal failure, on dialysis; hypertension; hyperlipidemia. Most recent echo showed left ventricular ejection fraction of 70%. PLAN: Plan is to continue carvedilol 6.25 b.i.d., Diovan 320 mg p.o. daily, aspirin 81 mg p.o. daily, heparin 5000 units subcutaneous q. 12 hours, Lyrica 50 mg p.o. t.i.d., amlodipine 10 mg p.o. daily, and Rocephin 1 g IV daily. We will continue to follow with you. Ulysses Gama MD
--- NOTE | 2017-04-14 02:41 | PN ---
DATE: 04/13/2017 SUBJECTIVE: This patient was seen and evaluated today. The patient is more lethargic now. The patient did take some ammonia level yesterday, lactulose this morning. The patient has a history of anemia, occult blood positive. He is due to have an endoscopy done today, but the patient did have a solid breakfast so it was canceled. Had some dark bowel movement today. PHYSICAL EXAMINATION VITAL SIGNS: Temperature is 97.9, pulse 69, blood pressure 124/56, respirations 18. HEENT: Atraumatic and anicteric. NECK: Supple. HEART: S1 and S2 heard. LUNGS: Bilateral air entry present. ABDOMEN: Softly distended. Bowel sounds present. EXTREMITIES: No edema. No cyanosis. NEUROLOGIC: Alert and oriented. Moves all the extremities. LABORATORY DATA: The LFT is essentially unremarkable. Hemoglobin 8.4 this morning, repeat one was done, it showed only 8.0, total bilirubin 7, manual platelet count is 68. RECOMMENDATIONS: I would recommend; 1. Mental status changes, rule out hepatic encephalopathy, and request for ammonia level. 2. Continue the lactulose. We may need to put an NG tube for giving lactulose. 3. May need NG tube placement in giving lactulose. The patient has a history of chronic hepatitis B, was on Viread which is not started again we will continue to closely evaluate. The patient may need an NG tube and placement of the lactulose. The patient's platelet count is only 68,000. We will defer doing endoscopy at this point. Continue aspirin. Liss Huber MD
[2017-04-14 07:16] LABS: HEMATOCRIT 24.6 % (42.0-52.0); MEAN CELL VOLUME 87.2 fl (80.0-105.0); MEAN CORPUSCULAR HGB CONC 32.1 g/dl (31.0-37.0); MEAN PLATELET VOLUME 10.5 fl (7.0-11.0); RED CELL DISTRIBUTION WIDTH 16.7 % (11.5-14.5); WHITE BLOOD COUNT 6.4 10^3/ul (4.5-11.0)
[2017-04-14 07:42] LABS: ARTERIAL BLOOD GAS HCO3 33.1 mmol/L (21-28); ARTERIAL BLOOD GAS PH 7.42 (7.35-7.45)
[2017-04-14 08:15] LABS: ALB/GLOB RATIO 0.7 (1.1-1.8); BILIRUBIN,TOTAL 0.3 mg/dL (0.2-1.3); CALCIUM 9.1 mg/dL (8.4-10.5); POTASSIUM 3.6 mmol/L (3.6-5.0); TOTAL PROTEIN 6.2 g/dL (5.8-8.3)
[2017-04-14] MEDS ORDERED: Dextrose 50% SYRINGE Inj (50 ml) IVP ONE (08:21)
[2017-04-14] MEDS ORDERED: Dextrose 5%/0.45% NS 1,000 ML IV SCH (08:30)
--- NOTE | 2017-04-14 08:35 | CP.PCM.PN ---
Subjective - Date & Time of Evaluation Date of Evaluation: 04/13/17 Time of Evaluation: 10:00 - Subjective Subjective: 76 yo M w/ pmh of htn, dm, PAD now s/p L AKA in the setting of L foot OM, and ESRD on HD; Patient much more lethargic today; being fed slowly liquid diet; not answering questions; Objective - Vital Signs/Intake and Output Vital Signs (last 24 hours): Temp Pulse Resp BP Pulse Ox 99.4 F 68 20 123/59 L 100 04/14/17 00:00 04/14/17 02:00 04/14/17 02:00 04/14/17 02:00 04/14/17 02:00 - Medications Medications: Current Medications Acetaminophen (Tylenol 325mg Tab) 325 mg PO Q4H PRN PRN Reason: Fever >100.4 F Acetaminophen (Tylenol 325mg Tab) 650 mg PO Q6H PRN PRN Reason: Pain, Mild (1-3) Amlodipine Besylate (Norvasc) 10 mg PO DAILY [facility] Last Admin: 04/13/17 09:54 Dose: 10 mg Aspirin (Ecotrin) 81 mg PO DAILY [facility] Last Admin: 04/13/17 09:54 Dose: 81 mg Carvedilol (Coreg) 6.25 mg PO BID [facility] Last Admin: 04/13/17 18:10 Dose: Not Given Cinacalcet (Sensipar) 30 mg PO DAILY [facility] Last Admin: 04/13/17 09:54 Dose: 30 mg Donepezil HCl (Aricept) 10 mg PO HS [facility] Last Admin: 04/13/17 22:34 Dose: Not Given Heparin Sodium (Porcine) (Heparin) 5,000 units SC Q12 [facility] PRN Reason: Protocol Last Admin: 04/13/17 23:40 Dose: 5,000 units Hydralazine HCl (Apresoline) 100 mg PO Q8 [facility] Last Admin: 04/13/17 13:37 Dose: Not Given Hydromorphone HCl (Dilaudid) 0.5 mg IVP Q6H PRN PRN Reason: Breakthrough Ceftriaxone Sodium (Rocephin 1 Gram Ivpb (D5w)) 1 gm in 100 mls @ 100 mls/hr IVPB DAILY [facility] PRN Reason: Protocol Last Admin: 04/13/17 09:56 Dose: 100 mls/hr Dextrose/Sodium Chloride (Dextrose 5%/0.45% Ns 1000 Ml) 1,000 mls @ 50 mls/hr IV .Q20H [facility] Insulin Human Regular (Humulin R Med) 0 units SC ACHS [facility] PRN Reason: Protocol Last Admin: 04/13/17 23:34 Dose: Not Given Lactic Acid (Lac-Hydrin 12% Cream (140 G)) 0 ea TOP BID [facility] Last Admin: 04/13/17 18:11 Dose: 1 applic Lactulose (Enulose) 20 gm PO BID [facility] Last Admin: 04/13/17 18:11 Dose: Not Given Oxycodone/Acetaminophen (Percocet 5/325 Mg Tab) 1 tab PO Q6H PRN PRN Reason: Pain, severe (8-10) Stop: 04/16/17 08:31 Pantoprazole Sodium (Protonix Ec Tab) 20 mg PO DAILY [facility] Last Admin: 04/13/17 09:56 Dose: 20 mg Pregabalin (Lyrica) 50 mg PO TID [facility] Last Admin: 04/13/17 18:11 Dose: Not Given Risperidone (Risperdal Tab) 1 mg PO HS [facility] PRN Reason: Protocol Last Admin: 04/13/17 22:34 Dose: Not Given Sevelamer HCl (Renagel) 800 mg PO TID [facility] Last Admin: 04/13/17 18:11 Dose: Not Given Silver Sulfadiazine (Silvadene 1% 25 Gm) 25 gm TP DAILY [facility] Last Admin: 04/13/17 09:57 Dose: 25 gm Valsartan (Diovan) 320 mg PO DAILY [facility] Last Admin: 04/13/17 09:54 Dose: 320 mg Vitamin B Complex/Vit C/Folic Acid (Nephro-Yudi) 1 tab PO DAILY [facility] Last Admin: 04/13/17 09:54 Dose: 1 tab - Labs Labs: 04/14/17 05:00 04/14/17 07:35 PT 14.0 SECONDS (9.4-12.5) H 04/11/17 06:43 INR 1.27 (0.93-1.08) H 04/11/17 06:43 APTT 35.9 Seconds (25.1-36.5) 04/10/17 10:23 - Constitutional Appears: Non-toxic, No Acute Distress - Head Exam Head Exam: NORMAL INSPECTION - Eye Exam Eye Exam: absent: Scleral icterus - ENT Exam ENT Exam: Mucous Membranes Moist - Respiratory Exam Additional comments: shallow breathing, no resp distress; - Cardiovascular Exam Cardiovascular Exam: RRR, +S1, +S2 - GI/Abdominal Exam GI & Abdominal Exam: Soft. absent: Distended, Tenderness - Extremities Exam Additional comments: no leg edema; - Neurological Exam Neurological Exam: Alert, Awake - Psychiatric Exam Psychiatric exam: absent: Agitated - Skin Skin Exam: Warm. absent: Cyanosis Assessment and Plan (1) Delirium Assessment & Plan: Altered mental status today; has been having fluctuating delirium for past 1+ month of unclear etiology; for now will hold lyrica as drug accumulates in renal failure; Status: Acute (2) ESRD (end stage renal disease) Assessment & Plan: Stable electrolyte and volume status; BP low/normal and so with reduced UF on HD yesterday; next HD tomorrow per routine, will assess BP before determining UF , especially with decreased PO intake lately; Status: Chronic (3) Heel ulceration Assessment & Plan: Now s/p L AKA, on vanco for MRSA of R heel ulcer, dose after HD; Status: Acute (4) Anemia in ESRD (end-stage renal disease) Assessment & Plan: Hgb continues to drop despite repeated prbc transfusion and being on aranesp 100 mcg weekly; GI to evaluate for possible EGD, will f/u; Status: Acute (5) Chronic kidney disease-mineral and bone disorder Assessment & Plan: Ca improved, continue sensipar 30 mg daily and sevelamer 1 tab w/ meals; Status: Acute (6) Hypertensive CKD, ESRD on dialysis Assessment & Plan: BP low normal in the setting of AMS; holding hydralazine for now; Status: Acute
--- NOTE | 2017-04-14 08:46 | CP.PCM.PN ---
Subjective - Date & Time of Evaluation Date of Evaluation: 04/14/17 Time of Evaluation: 06:50 - Subjective Subjective: General Surgery Note for Dr. Joy Patient seen and examined at bedside. Patient is still lethargic which began yesterday and remained constant. Patient is minimally responsive with stable vitals. Patient will answer a question here and there. ROS unobtaianle due to lethargy. Patient made NPO. Objective - Vital Signs/Intake and Output Vital Signs (last 24 hours): Temp Pulse Resp BP Pulse Ox 99.4 F 68 20 123/59 L 100 04/14/17 00:00 04/14/17 02:00 04/14/17 02:00 04/14/17 02:00 04/14/17 02:00 - Medications Medications: Current Medications Acetaminophen (Tylenol 325mg Tab) 325 mg PO Q4H PRN PRN Reason: Fever >100.4 F Acetaminophen (Tylenol 325mg Tab) 650 mg PO Q6H PRN PRN Reason: Pain, Mild (1-3) Amlodipine Besylate (Norvasc) 10 mg PO DAILY [facility] Last Admin: 04/13/17 09:54 Dose: 10 mg Aspirin (Ecotrin) 81 mg PO DAILY [facility] Last Admin: 04/13/17 09:54 Dose: 81 mg Carvedilol (Coreg) 6.25 mg PO BID [facility] Last Admin: 04/13/17 18:10 Dose: Not Given Cinacalcet (Sensipar) 30 mg PO DAILY [facility] Last Admin: 04/13/17 09:54 Dose: 30 mg Donepezil HCl (Aricept) 10 mg PO HS [facility] Last Admin: 04/13/17 22:34 Dose: Not Given Heparin Sodium (Porcine) (Heparin) 5,000 units SC Q12 [facility] PRN Reason: Protocol Last Admin: 04/13/17 23:40 Dose: 5,000 units Hydralazine HCl (Apresoline) 100 mg PO Q8 [facility] Last Admin: 04/13/17 13:37 Dose: Not Given Hydromorphone HCl (Dilaudid) 0.5 mg IVP Q6H PRN PRN Reason: Breakthrough Ceftriaxone Sodium (Rocephin 1 Gram Ivpb (D5w)) 1 gm in 100 mls @ 100 mls/hr IVPB DAILY [facility] PRN Reason: Protocol Last Admin: 04/13/17 09:56 Dose: 100 mls/hr Dextrose/Sodium Chloride (Dextrose 5%/0.45% Ns 1000 Ml) 1,000 mls @ 50 mls/hr IV .Q20H [facility] Last Admin: 04/14/17 08:38 Dose: 50 mls/hr Vancomycin HCl (Vancomycin 1gm) 1 gm in 250 mls @ 167 mls/hr IVPB TTS@1800 [facility] PRN Reason: Protocol Insulin Human Regular (Humulin R Med) 0 units SC ACHS [facility] PRN Reason: Protocol Last Admin: 04/13/17 23:34 Dose: Not Given Lactic Acid (Lac-Hydrin 12% Cream (140 G)) 0 ea TOP BID [facility] Last Admin: 04/13/17 18:11 Dose: 1 applic Lactulose (Enulose) 20 gm PO BID [facility] Last Admin: 04/13/17 18:11 Dose: Not Given Oxycodone/Acetaminophen (Percocet 5/325 Mg Tab) 1 tab PO Q6H PRN PRN Reason: Pain, severe (8-10) Stop: 04/16/17 08:31 Pantoprazole Sodium (Protonix Ec Tab) 20 mg PO DAILY [facility] Last Admin: 04/13/17 09:56 Dose: 20 mg Pregabalin (Lyrica) 50 mg PO TID [facility] Last Admin: 04/13/17 18:11 Dose: Not Given Risperidone (Risperdal Tab) 1 mg PO HS [facility] PRN Reason: Protocol Last Admin: 04/13/17 22:34 Dose: Not Given Sevelamer HCl (Renagel) 800 mg PO TID [facility] Last Admin: 04/13/17 18:11 Dose: Not Given Silver Sulfadiazine (Silvadene 1% 25 Gm) 25 gm TP DAILY [facility] Last Admin: 04/13/17 09:57 Dose: 25 gm Valsartan (Diovan) 320 mg PO DAILY [facility] Last Admin: 04/13/17 09:54 Dose: 320 mg Vitamin B Complex/Vit C/Folic Acid (Nephro-Yudi) 1 tab PO DAILY [facility] Last Admin: 04/13/17 09:54 Dose: 1 tab - Labs Labs: 04/14/17 05:00 04/14/17 07:35 PT 14.0 SECONDS (9.4-12.5) H 04/11/17 06:43 INR 1.27 (0.93-1.08) H 04/11/17 06:43 APTT 35.9 Seconds (25.1-36.5) 04/10/17 10:23 - Constitutional Appears: Cachectic, Other (lethargic) - Head Exam Head Exam: ATRAUMATIC, NORMOCEPHALIC - ENT Exam ENT Exam: Mucous Membranes Dry - Respiratory Exam Respiratory Exam: NORMAL BREATHING PATTERN (Nasal cannula). absent: Accessory Muscle Use, Respiratory Distress - Cardiovascular Exam Cardiovascular Exam: REGULAR RHYTHM - GI/Abdominal Exam GI & Abdominal Exam: Soft. absent: Distended, Guarding, Tenderness - Extremities Exam Additional comments: dressings clean dry and intact on left LLE AKA - Neurological Exam Neurological Exam: Altered - Psychiatric Exam Psychiatric exam: Flat Affect - Skin Skin Exam: Dry, Warm Assessment and Plan - Assessment and Plan (Free Text) Plan: 76 M s/p Left AKA POD #3 found to be lethargic -NPO due to lethargy -Aspiration precautions -f/u ABG, CXR -found to be hypoglycemic, D50 given -follow up with Dr. Joy in office in 1-2 weeks after discharge -Medical management per primary -Will discuss with Dr. Rufino Goncalves PGY1
[2017-04-14] MEDS: Insulin Reg-MEDIUM-Coverage SC SCH ×4 (09:36→21:29)
[2017-04-14] MEDS: Pantoprazole 20 mg EC Tab PO SCH (09:38)
[2017-04-14] MEDS: Multivitamin Vitamin B Complex (Nephro-Vite) Tab PO SCH (09:38)
[2017-04-14] MEDS: cefTRIAXone 1 gm 1 GM/100 ML BAG IVPB SCH (09:39)
--- NOTE | 2017-04-14 10:48 | RAD ---
HISTORY: r/o aspiration COMPARISON: 03/30/2017 FINDINGS: LUNGS: There is an infiltrate at the left lung base that obscures the diaphragm. PICC line in satisfactory position PLEURA: No significant pleural effusion identified, no pneumothorax apparent. CARDIOVASCULAR: Normal. OSSEOUS STRUCTURES: No significant abnormalities. VISUALIZED UPPER ABDOMEN: Normal. OTHER FINDINGS: None. IMPRESSION: Left lower lobe infiltrate
--- NOTE | 2017-04-14 10:50 | PN ---
DATE: 04/14/2017 SUBJECTIVE: The patient is in bed, in no acute distress, and nontoxic. PHYSICAL EXAMINATION: VITAL SIGNS: Temperature is 98, blood pressure is 120/60, and respiratory rate of 16. HEENT: Examination of HEENT is unremarkable. NECK: Supple. LUNGS: Have decreased breath sounds. CARDIOVASCULAR: Normal S1 and S2. ABDOMEN: Soft and nontender. LABORATORY DATA: Laboratory examination reveals a white count of 6.4, hemoglobin of 7, and platelets of 75. Chemistries reveals a BUN of 29 and creatinine of 5.4. Microbiology is noted. The right foot culture is Proteus mirabilis and MRSA and Enterococcus.. The Proteus is pansensitive. DIAGNOSTIC DATA: The patient has had chest x-ray and a CAT scan of the head. Chest x-ray results are not available. ASSESSMENT AND PLAN: This is a 76-year-old male with bilateral gangrenous ulcer status post debridement. The patient with the right heel with methicillin-resistant Staphylococcus aureus, Proteus and Enterococcus. The patient with hypertension. The patient had a left [id number] amputation postprocedure day number 3, on vancomycin during dialysis and we will discuss with Podiatry regarding the right heel. We will continue ceftriaxone for now and vancomycin during dialysis. Ibrahima Lara MD
--- NOTE | 2017-04-14 10:59 | CP.PCM.PN ---
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; arousable to verbal stimuli but not able to answer any questions; mildly hypoglycemic this morning as well; Objective - Vital Signs/Intake and Output Vital Signs (last 24 hours): Temp Pulse Resp BP Pulse Ox 98.5 F 61 18 114/55 L 99 04/14/17 09:26 04/14/17 09:26 04/14/17 09:26 04/14/17 09:26 04/14/17 09:26 - Medications Medications: Current Medications Acetaminophen (Tylenol 325mg Tab) 325 mg PO Q4H PRN PRN Reason: Fever >100.4 F Acetaminophen (Tylenol 325mg Tab) 650 mg PO Q6H PRN PRN Reason: Pain, Mild (1-3) Amlodipine Besylate (Norvasc) 10 mg PO DAILY [facility] Last Admin: 04/14/17 09:38 Dose: Not Given Aspirin (Ecotrin) 81 mg PO DAILY [facility] Last Admin: 04/14/17 09:36 Dose: Not Given Carvedilol (Coreg) 6.25 mg PO BID [facility] Last Admin: 04/14/17 09:35 Dose: Not Given Cinacalcet (Sensipar) 30 mg PO DAILY [facility] Last Admin: 04/14/17 09:38 Dose: Not Given Donepezil HCl (Aricept) 10 mg PO HS [facility] Last Admin: 04/13/17 22:34 Dose: Not Given Heparin Sodium (Porcine) (Heparin) 5,000 units SC Q12 [facility] PRN Reason: Protocol Last Admin: 04/14/17 10:06 Dose: 5,000 units Hydralazine HCl (Apresoline) 100 mg PO Q8 [facility] Last Admin: 04/13/17 13:37 Dose: Not Given Hydromorphone HCl (Dilaudid) 0.5 mg IVP Q6H PRN PRN Reason: Breakthrough Ceftriaxone Sodium (Rocephin 1 Gram Ivpb (D5w)) 1 gm in 100 mls @ 100 mls/hr IVPB DAILY [facility] PRN Reason: Protocol Last Admin: 04/14/17 09:39 Dose: 100 mls/hr Vancomycin HCl (Vancomycin 1gm) 1 gm in 250 mls @ 167 mls/hr IVPB TTS@1800 [facility] PRN Reason: Protocol Dextrose (Dextrose 10% In Water) 500 mls @ 20 mls/hr IV .Q24H [facility] Insulin Human Regular (Humulin R Med) 0 units SC ACHS [facility] PRN Reason: Protocol Last Admin: 04/14/17 09:36 Dose: Not Given Lactic Acid (Lac-Hydrin 12% Cream (140 G)) 0 ea TOP BID [facility] Last Admin: 04/13/17 18:11 Dose: 1 applic Lactulose (Enulose) 20 gm PO BID [facility] Last Admin: 04/14/17 09:36 Dose: Not Given Oxycodone/Acetaminophen (Percocet 5/325 Mg Tab) 1 tab PO Q6H PRN PRN Reason: Pain, severe (8-10) Stop: 04/16/17 08:31 Pantoprazole Sodium (Protonix Ec Tab) 20 mg PO DAILY [facility] Last Admin: 04/14/17 09:38 Dose: Not Given Pregabalin (Lyrica) 50 mg PO TID [facility] Last Admin: 04/13/17 18:11 Dose: Not Given Risperidone (Risperdal Tab) 1 mg PO HS [facility] PRN Reason: Protocol Last Admin: 04/13/17 22:34 Dose: Not Given Sevelamer HCl (Renagel) 800 mg PO TID [facility] Last Admin: 04/14/17 09:38 Dose: Not Given Silver Sulfadiazine (Silvadene 1% 25 Gm) 25 gm TP DAILY [facility] Last Admin: 04/13/17 09:57 Dose: 25 gm Valsartan (Diovan) 320 mg PO DAILY [facility] Last Admin: 04/14/17 09:35 Dose: Not Given Vitamin B Complex/Vit C/Folic Acid (Nephro-Yudi) 1 tab PO DAILY [facility] Last Admin: 04/14/17 09:38 Dose: Not Given - Labs Labs: 04/14/17 05:00 04/14/17 07:35 PT 14.0 SECONDS (9.4-12.5) H 04/11/17 06:43 INR 1.27 (0.93-1.08) H 04/11/17 06:43 APTT 35.9 Seconds (25.1-36.5) 04/10/17 10:23 - Constitutional Appears: No Acute Distress - Head Exam Additional comments: lethargic; arousable to verbal stimuli but not verbally responsive; - Eye Exam Eye Exam: absent: Scleral icterus - ENT Exam ENT Exam: Mucous Membranes Moist - Respiratory Exam Respiratory Exam: absent: Respiratory Distress Additional comments: shallow breathing, not tachypneic; - Cardiovascular Exam Cardiovascular Exam: RRR, +S1, +S2 - GI/Abdominal Exam GI & Abdominal Exam: Soft. absent: Distended, Tenderness - Extremities Exam Additional comments: no leg edema; - Neurological Exam Additional comments: Raquel GARZA myoclonus noted; - Skin Skin Exam: Warm. absent: Cyanosis Assessment and Plan (1) Delirium Assessment & Plan: No improvement since yesterday; getting HD today which should help remove any excess pregabalin; however, etiology is overall unclear and this delirium was seen last month during admission at [facility] when he also had herpes zoster lesions involving L thigh (treated with IV acyclovir, currently healed); patient had improved back to baseline but cause of delirium was still unclear; -consider neuro eval -should hold all psychotropic drugs -will avoid hypotension; holding hydralazine and coreg -has mild hypercapnea due to shallow breathing, need to monitor; -starting D10 at 20 cc/hr to avoid hypoglycemia Status: Acute (2) ESRD (end stage renal disease) Assessment & Plan: Stable electrolyte and volume status; dialyzing per routine, decreasing UF goal to 500 cc net to avoid hypotension; Status: Chronic (3) Heel ulceration Assessment & Plan: s/p L GREG, still with R heel ulcer that grew MRSA; re-dose vanco after HD; Status: Acute (4) Anemia in ESRD (end-stage renal disease) Assessment & Plan: Hgb continues to trend downward, will transfuse 1 u prbc and continue aranesp, will increase dose to 125 mcg weekly; Status: Acute (5) Chronic kidney disease-mineral and bone disorder Assessment & Plan: Corrected Ca high/normal; continue sensipar 30 mg daily; continue sevelamer 1 tab w/ meals; Status: Acute (6) Hypertensive CKD, ESRD on dialysis Assessment & Plan: BP control fluctuating; for now will hold coreg (not getting it regularly anyway ) and hydralazine, will continue amlodipine and valsartan; Status: Acute
[2017-04-14] MEDS ORDERED: Darbepoetin Alfa 100 mcg/ml Inj IVP ONE ×2 (11:04→11:15)
[2017-04-14] MEDS ORDERED: Darbepoetin Alfa 25 mcg/ml Inj IVP ONE (11:15)
[2017-04-14] MEDS: Silver Sulfadiazine 1% Cream (25 gm) TP SCH ×2 (17:02→17:32)
[2017-04-14] MEDS: Ammonium Lactate 12% Cream (140 g) TOP SCH ×3 (17:27→17:31)
[2017-04-14] MEDS ORDERED: Vancomycin 1gm in NS 250ml 1 GM/250 ML BAG IVPB SCH (18:00)
--- NOTE | 2017-04-14 19:49 | PN ---
DATE: 04/14/2017 LOCATION: The patient is in room 563, bed 1. REASON FOR CONSULTATION: End-stage renal failure, on dialysis; peripheral vascular disease; nonhealing ulcer; hypertension; hyperlipidemia; status post [id number] amputation, left leg. SUBJECTIVE: The patient is drowsy but open eyes on calling, no respiratory distress. The patient is lying flat in bed. PHYSICAL EXAMINATION VITAL SIGNS: Blood pressure 119/57, respirations 18, pulse 63, and temperature 98.2. HEENT: Head is normocephalic. Eyes; pupils are normal. Conjunctivae slightly pale. NECK: JVP is low. Carotids are equal. THORAX: AP diameter normal. LUNGS: Clear. CARDIOVASCULAR: S1 and S2. ABDOMEN: Soft. No tenderness. No organomegaly. EXTREMITIES: The patient has left leg [id number] amputation. LABORATORY DATA: WBC is 6.4, hemoglobin 7.9, hematocrit 24.6, platelets 75. Sodium 142, potassium 3.6, BUN 29, creatinine 5.4, sugar 169, calcium 9.1. AST and ALT normal. Total protein 6.2, albumin 2.6. DIAGNOSES: Peripheral vascular disease, status post amputation [id number] on the left leg; end-stage renal failure, on dialysis; hypertension; hyperlipidemia. The patient is drowsy. One most recent echo, ejection fraction 70%. PLAN: The patient had borderline sugar this morning, so the patient has received some 10% dextrose in water. Coreg and hydralazine have been put on hold to avoid hypotension at this moment. The patient is still on Diovan 320 mg p.o. daily, aspirin 81 mg daily, lactulose 20 g p.o. b.i.d., heparin 5000 units subcutaneous q. 12 hours, Lyrica 50 mg p.o. t.i.d., amlodipine 10 mg daily, Risperdal has been also put on hold because of drowsiness, Rocephin 1 g IV daily, vancomycin 1 g daily. We will follow with you. Ulysses Gama MD
[2017-04-15 07:36] LABS: ARTERIAL BLOOD GAS HCO3 30.2 mmol/L (21-28); ARTERIAL BLOOD GAS PH 7.52 (7.35-7.45)
--- NOTE | 2017-04-15 08:01 | CP.PCM.PN ---
Subjective - Date & Time of Evaluation Date of Evaluation: 04/15/17 Time of Evaluation: 07:00 - Subjective Subjective: General Surgery Note for Dr. Joy Patient seen and examined at bedside. Patient not responding to verbal/tactile/ noxious stimuli this AM. MEDICINE WORKER was called. Appropriate work-up was done including CT head. His vitals were normal and stable. ROS unobtainable due to clinical condition. Objective - Vital Signs/Intake and Output Vital Signs (last 24 hours): Temp Pulse Resp BP Pulse Ox 102 F H 78 20 168/99 H 99 04/15/17 07:40 04/15/17 06:36 04/15/17 00:00 04/15/17 06:36 04/15/17 00:00 Intake and Output: 04/15/17 04/15/17 06:59 18:59 Intake Total 0 Balance 0 - Medications Medications: Current Medications Acetaminophen (Tylenol 325mg Tab) 650 mg PO Q6H PRN PRN Reason: Pain, Mild (1-3) Acetaminophen (Tylenol 325 Mg Supp) 325 mg RC Q4H PRN PRN Reason: Fever >100.4 F Last Admin: 04/15/17 07:40 Dose: 325 mg Amlodipine Besylate (Norvasc) 10 mg PO DAILY [facility] Last Admin: 04/14/17 09:38 Dose: Not Given Aspirin (Ecotrin) 81 mg PO DAILY [facility] Last Admin: 04/14/17 09:36 Dose: Not Given Carvedilol (Coreg) 6.25 mg PO BID [facility] Last Admin: 04/14/17 09:35 Dose: Not Given Cinacalcet (Sensipar) 30 mg PO DAILY [facility] Last Admin: 04/14/17 09:38 Dose: Not Given Donepezil HCl (Aricept) 10 mg PO HS [facility] Last Admin: 04/13/17 22:34 Dose: Not Given Heparin Sodium (Porcine) (Heparin) 5,000 units SC Q12 [facility] PRN Reason: Protocol Last Admin: 04/14/17 21:37 Dose: 5,000 units Hydralazine HCl (Apresoline) 100 mg PO Q8 [facility] Last Admin: 04/13/17 13:37 Dose: Not Given Ceftriaxone Sodium (Rocephin 1 Gram Ivpb (D5w)) 1 gm in 100 mls @ 100 mls/hr IVPB DAILY [facility] PRN Reason: Protocol Last Admin: 04/14/17 09:39 Dose: 100 mls/hr Vancomycin HCl (Vancomycin 1gm) 1 gm in 250 mls @ 167 mls/hr IVPB TTS@1800 [facility] PRN Reason: Protocol Last Admin: 04/14/17 17:34 Dose: 167 mls/hr Dextrose (Dextrose 10% In Water) 500 mls @ 20 mls/hr IV .Q24H [facility] Last Admin: 04/14/17 15:25 Dose: 20 mls/hr Insulin Human Regular (Humulin R Med) 0 units SC ACHS [facility] PRN Reason: Protocol Last Admin: 04/14/17 21:29 Dose: Not Given Lactic Acid (Lac-Hydrin 12% Cream (140 G)) 0 ea TOP BID [facility] Last Admin: 04/14/17 17:31 Dose: 12 applic Lactulose (Enulose) 20 gm PO BID [facility] Last Admin: 04/14/17 17:26 Dose: Not Given Oxycodone/Acetaminophen (Percocet 5/325 Mg Tab) 1 tab PO Q6H PRN PRN Reason: Pain, severe (8-10) Stop: 04/16/17 08:31 Pantoprazole Sodium (Protonix Ec Tab) 20 mg PO DAILY [facility] Last Admin: 04/14/17 09:38 Dose: Not Given Pregabalin (Lyrica) 50 mg PO TID [facility] Last Admin: 04/13/17 18:11 Dose: Not Given Risperidone (Risperdal Tab) 1 mg PO HS [facility] PRN Reason: Protocol Last Admin: 04/13/17 22:34 Dose: Not Given Sevelamer HCl (Renagel) 800 mg PO TID [facility] Last Admin: 04/14/17 17:32 Dose: Not Given Silver Sulfadiazine (Silvadene 1% 25 Gm) 25 gm TP DAILY [facility] Last Admin: 04/14/17 17:32 Dose: 25 gm Valsartan (Diovan) 320 mg PO DAILY [facility] Last Admin: 04/14/17 09:35 Dose: Not Given Vitamin B Complex/Vit C/Folic Acid (Nephro-Yudi) 1 tab PO DAILY [facility] Last Admin: 04/14/17 09:38 Dose: Not Given - Labs Labs: 04/14/17 05:00 04/14/17 07:35 PT 14.0 SECONDS (9.4-12.5) H 12/13/17 06:43 INR 1.27 (0.93-1.08) H 04/11/17 06:43 APTT 35.9 Seconds (25.1-36.5) 04/10/17 10:23 - Constitutional Appears: Cachectic, Other (unresponsive) - Eye Exam Eye Exam: Normal appearance Pupil Exam: PERRL - ENT Exam ENT Exam: Mucous Membranes Moist - Respiratory Exam Respiratory Exam: NORMAL BREATHING PATTERN - Cardiovascular Exam Cardiovascular Exam: REGULAR RHYTHM - GI/Abdominal Exam GI & Abdominal Exam: Soft. absent: Distended, Guarding, Rigid, Tenderness, Rebound - Extremities Exam Extremities Exam: Normal Capillary Refill Additional comments: pulses present throughout s/p left lower extremity AKA - dressing clean, dry and intact - Neurological Exam Neurological Exam: Altered - Psychiatric Exam Psychiatric exam: Flat Affect - Skin Skin Exam: Dry, Warm Assessment and Plan - Assessment and Plan (Free Text) Plan: 76 M s/p Left AKA POD #4 found to be lethargic and not responsive -NPO -Aspiration precautions -follow up with Dr. Joy in office in 1-2 weeks after discharge -Medical management per primary -Will discuss with Dr. Rufino Goncalves PGY1
[2017-04-15 08:53] LABS: BASO # 0.02 K/mm3 (0.0-2.0); BASO % 0.2 % (0.0-3.0); GRAN # 10.53 (1.4-6.5); GRAN % 86.5 % (50.0-68.0); HEMATOCRIT 28.3 % (42.0-52.0); LYMPH # 0.7 (1.2-3.4); LYMPH % 5.8 % (22.0-35.0); MEAN CELL VOLUME 86.3 fl (80.0-105.0); MEAN CORPUSCULAR HEMOGLOBIN 27.7 pg (25.0-35.0); MEAN CORPUSCULAR HGB CONC 32.2 g/dl (31.0-37.0); MEAN PLATELET VOLUME 11.1 fl (7.0-11.0); MONO # 0.9 (0.1-0.6); MONO % 7.5 % (1.0-6.0); RED CELL DISTRIBUTION WIDTH 16.1 % (11.5-14.5); WHITE BLOOD COUNT 12.2 10^3/ul (4.5-11.0)
[2017-04-15] MEDS: Insulin Reg-MEDIUM-Coverage SC SCH ×3 (09:01→22:07)
[2017-04-15] MEDS: Multivitamin Vitamin B Complex (Nephro-Vite) Tab PO SCH (09:02)
[2017-04-15] MEDS: Pantoprazole 20 mg EC Tab PO SCH (09:03)
[2017-04-15] MEDS: cefTRIAXone 1 gm 1 GM/100 ML BAG IVPB SCH (09:05)
[2017-04-15 09:14] LABS: TROPONIN I 0.03 ng/mL
--- NOTE | 2017-04-15 09:14 | RAD ---
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 This obscures the left diaphragmatic border. There is an increasing perihilar component. The right lung is clear PLEURA: No significant pleural effusion identified, no pneumothorax apparent. CARDIOVASCULAR: Normal. OSSEOUS STRUCTURES: No significant abnormalities. VISUALIZED UPPER ABDOMEN: Normal. OTHER FINDINGS: None. IMPRESSION: There is an increasing left-sided infiltrate. This obscures the left diaphragmatic border. There is an increasing perihilar component. The right lung is clear
--- NOTE | 2017-04-15 09:22 | CT ---
PROCEDURE: CT HEAD WITHOUT CONTRAST. 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 Radiation dose: Total exam DLP = 726 mGy-cm. This CT exam was performed using one or more of the following dose reduction techniques: Automated exposure control, adjustment of the mA and/or kV according to patient size, and/or use of iterative reconstruction technique. FINDINGS: HEMORRHAGE: No intracranial hemorrhage. BRAIN: No mass effect or edema. Chronic microvascular changes. Mild atrophy VENTRICLES: Unremarkable. No hydrocephalus. CALVARIUM: Unremarkable. PARANASAL SINUSES: Unremarkable as visualized. No significant inflammatory changes. MASTOID AIR CELLS: Unremarkable as visualized. No inflammatory changes. OTHER FINDINGS: None. IMPRESSION: No acute intracranial findings
[2017-04-15 09:27] LABS: ALB/GLOB RATIO 0.7 (1.1-1.8); BILIRUBIN,TOTAL 0.4 mg/dL (0.2-1.3); CALCIUM 9.4 mg/dL (8.4-10.5); MAGNESIUM 1.9 mg/dL (1.7-2.2); PHOSPHOROUS 3.3 mg/dL (2.5-4.5); POTASSIUM 3.9 mmol/L (3.6-5.0); TOTAL PROTEIN 6.6 g/dL (5.8-8.3)
[2017-04-15] MEDS ORDERED: Vancomycin 2 GM in Sodium Chloride 0.9% 500 ML IVPB ONE (09:50)
--- NOTE | 2017-04-15 11:21 | PCM.RRT ---
<RocioHalSaint Anthony - Last Filed: 04/15/17 11:29> ENFORCEMENT MANAGER Nurse Assessment - Situation Date: 04/15/17 Time ENFORCEMENT MANAGER was called: 07:15 ENFORCEMENT MANAGER Responder Arrival Time: 07:17 ENFORCEMENT MANAGER Location:: [address] [place] [address] Room Number: 563 ENFORCEMENT MANAGER Reason for Call: Change in Mental Status ENFORCEMENT MANAGER Called By: RN - IV IV Inserted during ENFORCEMENT MANAGER?: No - Respiratory Oxygen Delivery Method: Nasal Cannula @L/min Oxygen Flow Rate: 2 Received Nebulizer Treatments:: No Was the Patient Ventilated with Bag/Mask 100% O2?: No Secretions Suctioned?: Yes Was the Patient Intubated?: No Was the Patient Placed on a Ventilator?: No - Medication Medications Administered During ENFORCEMENT MANAGER: Tylenol 325 mg rectal - Diagnostic Test Ordered EKG: Yes Chest X-Ray: Yes CT Scan: Yes (Head) - Stat Labs Ordered ENFORCEMENT MANAGER Stat Labs Ordered: CBC, TROPONIN, LACTIC ACID, BLOOD C&S X2, ABG ENFORCEMENT MANAGER Other Labs Ordered: CMP, ammonia, magnesium, and phoshorus CPR started during ENFORCEMENT MANAGER?: No - Vital Signs Vital Sign: Rapid Response Vital Sign Blood Pressure 117/53 Pulse Rate 82 Respiratory Rate 16 Temperature 102 F Oxygen Saturation 99 - Finger Stick Blood Glucose Finger Stick Blood Glucose: 107 - Mart Coma Scale Coma Scale Eye Opening: No response Coma Scale Motor: None Coma Scale Verbal: No response - Sepsis Screen Part 1 Sepsis Screen Part 1: Temperature over 100.6F - Sepsis Screen Part 2 Sepsis Screen Part 2: Platelets under 80,000 - Time ENFORCEMENT MANAGER Ended Time ENFORCEMENT MANAGER Ended: 07:45 - Vital Signs at end of ENFORCEMENT MANAGER Vital Signs at end of ENFORCEMENT MANAGER: Rapid Response End Vital Sign Blood Pressure 138/50 Pulse Rate 84 Respiratory Rate 16 Temperature 97.8 F O2 Sat by Pulse Oximetry 96 - Recommendations 5) ENFORCEMENT MANAGER Level of Care Recommendations: Remain in current setting Notifications: Family or Designated Caregiver - Respiratory Oxygen Delivery Method: Nasal Cannula @L/min Oxygen Flow Rate: 2 - Head Head Exam: ATRAUMATIC, NORMAL INSPECTION, NORMOCEPHALIC - Eyes Eye Exam: EOMI, Normal appearance Additional Comments: Pupils equal and reactive but sluggish to accomodate. - Respiratory Exam Respiratory Exam: Clear to Ausculation Bilateral, NORMAL BREATHING PATTERN. absent: Chest Wall Tenderness, Prolonged Expiratory Phase, Respiratory Distress - Cardiovascular Exam Cardiovascular Exam: REGULAR RHYTHM, +S1, +S2 - GI/Abdominal Exam GI & Abdominal Exam: Soft, Normal Bowel Sounds. absent: Rigid, Hyperactive Bowel Sounds - Neurological Exam Neurological Exam: Altered. absent: Normal Gait, Oriented x3 Plan - Assessment of Findings&Treatment Plan Rapid response was called because patient was unresponsive to nurse. House doctor, resident, and attending went down to examine the patient immediately. Fingerstick blood glucose ordered, vital signs obtained, labs ordered, and patient placed on monitoring tech. Patient was found to have a finger stick blood glucose level of 101, blood pressure of 126/51, SpO2 of 100, 84 HR, monitor showed NSR. Orders: -Head CT -STAT ABG -CBC/CMP -CXR -MG/Phos -Trending Troponins -STAT EKG -Repeat blood cultures. -NPO -Seizure protocols. PMD, Dr. Aguirre was notified. Head CT was negative. EKG showed no acute ST-T changes in comparison to previous EKG. After Head ct patient was more alert while being transferred back to his room. <Ulysses Shields - Last Filed: 04/15/17 12:37> ENFORCEMENT MANAGER Nurse Assessment - Vital Signs Vital Sign: Rapid Response Vital Sign Blood Pressure 117/53 Pulse Rate 82 Respiratory Rate 16 Temperature 102 F Oxygen Saturation 99 - Vital Signs at end of ENFORCEMENT MANAGER Vital Signs at end of ENFORCEMENT MANAGER: Rapid Response End Vital Sign Blood Pressure 138/50 Pulse Rate 84 Respiratory Rate 16 Temperature 97.8 F O2 Sat by Pulse Oximetry 96 Attending/Attestation - Attestation I have personally seen and examined this patient.: Yes I have fully participated in the care of the patient.: Yes I have reviewed all pertinent clinical information, including history, physical exam and plan: Yes Notes (Text): 04/15/17 12:34 Patient was seen and examined during rapid response. 76 yrs old male with ESRD ,PVD with Sepsis was found to be unresponsive, Patient is not hypoglycemic, no focal deficit. Patient is febrile, sepsis work up is ordered. ABG showed no CO2 retension, will get CT scan of head, will monitor Neuro check. Case was discussed with patient PMD over the phone total time spent 60 minuets ,
--- NOTE | 2017-04-15 12:30 | PN ---
DATE: 04/15/2017 SUBJECTIVE: The patient seen earlier today. No fevers and no chills. The patient had a Rapid Response called because of poor mental status. PHYSICAL EXAMINATION: VITAL SIGNS: Temperature is 102, blood pressure , respiratory rate of 20, and heart rate of 78. HEENT: Unremarkable. NECK: Supple. LUNGS: Have decreased breath sounds. HEART: Normal S1 and S2. ABDOMEN: Soft and nontender. LABORATORY EXAMINATION: Reveals the patient's white count is up to 12,200 and hemoglobin is 9. Chemistries reveals the creatinine is 3.9 and review of orders reveals the patient to be on ceftriaxone. The patient had a chest x-ray this morning showed increasing infiltrate in the left side. ASSESSMENT AND PLAN: This is a 76-year-old male with bilateral gangrenous ulcer, status post debridement with now status post left [id number] amputation postprocedure day number 4 with leukocytosis, tachycardia, and new infiltrate number one is sepsis with healthcare-associated pneumonia. We will give the patient a dose of vancomycin and start the patient on meropenem, order blood, urine, sputum cultures and vancomycin and meropenem, pending pancultures and procalcitonin. Overall prognosis is quite poor (the patient with no quality of life). We will give him 1 dose of vancomycin at 2 g and start the meropenem and adjusted for renal insufficiency. Ibrahima Lara MD
[2017-04-15] MEDS: Silver Sulfadiazine 1% Cream (25 gm) TP SCH (15:23)
--- NOTE | 2017-04-15 17:11 | CARD ---
APPROVED REPORT EKG Measurement Heart [id number] <Conclusion> Normal sinus rhythm Normal ECG
[2017-04-15] MEDS: Ammonium Lactate 12% Cream (140 g) TOP SCH (17:53)
--- NOTE | 2017-04-15 18:22 | PN ---
DATE: 04/15/2017 LOCATION: The patient is in room 563, bed 1. REASON FOR CONSULTATION: Follow up end-stage renal failure, on dialysis; peripheral vascular disease; nonhealing ulcer; hypertension; hyperlipidemia; status post [id number] amputation of left leg and altered mental status. SUBJECTIVE: The patient still drowsy. Does not look to be in any respiratory distress, lying flat in bed at present. PHYSICAL EXAMINATION VITAL SIGNS: Blood pressure 138/50, respirations 20, pulse 78, and temperature 99.9. HEENT: Head is normocephalic. Eyes; pupils are normal. Conjunctivae slightly pale. NECK: JVP is low. Carotids are equal. THORAX: AP diameter normal. LUNGS: Clear. CARDIOVASCULAR: S1 and S2. ABDOMEN: Soft. Nontender. No organomegaly. EXTREMITIES: The patient has amputation [id number] in left leg. LABORATORY DATA: WBC is 12.2, hemoglobin 9.1, hematocrit 28.3, platelets 116. Sodium 140, potassium 3.9, BUN 16, creatinine 3.9, random sugar 114. Calcium, phosphorus and magnesium normal. AST and ALT normal. Troponin 0.03. Total protein 6.6, albumin 2.7 and bicarbonate 29. DIAGNOSES: Peripheral vascular disease, status post amputation [id number]-[id number] on the left leg; end-stage renal failure, on dialysis; hypertension; hyperlipidemia and altered mental status. The patient is drowsy. The patient's most recent echo has shown left ventricular ejection fraction of 70%. PLAN: The patient is drowsy. There is possibility of infective process as well. The patient has been given one dose of vancomycin by Dr. Lara. The patient also on meropenem 250 mg IV q. 12 hour, Lyrica 50 mg t.i.d., heparin 5000 units subcutaneous q. 12 hours, aspirin 81 mg p.o. daily, Diovan 320 daily, carvedilol and hydralazine has been put on hold as per Dr. Garcia, Public Improvement Inspector to monitor blood pressure. As part of the altered mental status of the patient, we will continue to follow. Ulysses Gama MD
--- NOTE | 2017-04-15 19:44 | PN ---
DATE: 04/15/2017 SUBJECTIVE: This patient was seen and evaluated earlier today. Patient is very lethargic now, not very responsive. Previous night events noticed. Discussed with the nursing staff. PHYSICAL EXAMINATION: VITAL SIGNS: Temperature is 99.9, blood pressure is 168/99, respirations are 20, pulse 78, O2 saturation 96%. HEENT: Atraumatic, anicteric. NECK: Supple. HEART: S1 and S2 heard. LUNGS: Bilateral air entry present. ABDOMEN: Soft. EXTREMITIES: No cyanosis. No clubbing. NEUROLOGIC: Patient is not responding to verbal commands. LABORATORY DATA: WBC 12.2, hemoglobin 9.1, hematocrit 28.3, platelets 116. Chemistry: LFTs normal. BUN 16, creatinine 3.9. Ammonia level less than 9. 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 Patient is becoming more lethargic. Ammonia level has been normal. Patient had a rapid response today. RECOMMENDATIONS: 1. NG tube placement and continue the lactulose. 2. Continue the IV antibiotics as per ID. 3. Close monitoring of the neurological status and respiratory status. 4. End-stage renal disease, on hemodialysis. Overall, prognosis of the patient is poor. Discussed with Dr. Aguirre earlier today. Liss Huber MD
--- NOTE | 2017-04-15 21:40 | PN ---
DATE: 04/12/2017 SUBJECTIVE: The patient is in the bed. He is in no respiratory distress, but seems lethargic. This is day 2 postop, not responding well. The patient had a chronic history of liver disease as well as renal disease and with recent anesthesia could be a factor in his mental status, but he has no distress and his vitals are stable and seems afebrile. PHYSICAL EXAMINATION: VITAL SIGNS: On 04/12/2017 is as follows; his temperature is 97.8, heart rate 68, blood pressure 144/64, respiratory rate 20, and saturating 96% on room air. HEAD AND NECK: Normal. No JVD. No thyromegaly. CHEST: Clear. Good air entry. CARDIAC: First sound and second sound normal. ABDOMEN: Soft and nontender. EXTREMITIES: He has left leg above-knee amputation. NEUROLOGIC: The patient seems lethargic, not responding. LABORATORY DATA: Laboratory simon, on 04/12/2017, his white count is 7.7, hemoglobin is 9.3, hematocrit is 27.8, and platelets are 71. His chemistry noted for sodium 140, potassium 3.9, chloride 105, bicarbonate 27, BUN 27, and creatinine 4.7. Liver function test is normal. The patient also had blood sugar with 93 to 97 range. IMPRESSION AND PLAN: 1. Acute change in mental status probably toxic metabolic. The patient had similar symptoms like this and neuro consult with Dr. Almonte being seen the patient and the patient in the past resolved on itself and was probably sedation or medication related Ativan. We will monitor the patient's clinical status. We will consider CT head, which has been done in the past and was negative. We will repeat it if needed. We will monitor the patient's clinical status for the next 24 hours. If no improvement, we will get a CT of the head and the patient also was seen by Neuro consult, Dr. Almonte. 2. The patient is also diabetic. We will monitor his sugar and his vital signs. 3. Chronic renal failure, history of chronic liver disease, hepatitis B stable at this time, and continue hemodialysis. 4. Anemia and thrombocytopenia stable, seen by Dr. Jackson, Hematology consult. At this time, we will continue to observe the patient for his mental status. Continue local wound care and local medications as per surgical team and we will follow up clinically. The patient also see by ID consult, Dr. Lara. Barber Aguirre MD
--- NOTE | 2017-04-15 22:50 | PN ---
DATE: 04/15/2017 SUBJECTIVE: The patient had a fever of 102, still lethargic, no response postoperatively day number 3 or 4. The patient seen by the hospitalist already and blood culture has been obtained. PHYSICAL EXAMINATION: GENERAL: The patient still unresponding except to moving his neck, he opens his eyes only, but otherwise he does not communicate verbally. VITAL SIGNS: Temperature 102, heart rate 82, blood pressure is 168/99, respirations 16 and saturating 99%. HEAD AND NECK: Normal. No JVD. The patient does have his head tilted to the left when I move his head, the patient opened his eyes, but no distress. CHEST: Clear. CARDIAC: First sound and second sound normal. ABDOMEN: Soft. EXTREMITIES: The patient has amputation of his left leg, above knee amputation. NEUROLOGIC: As I said unresponding and not following commands. LABORATORY STUDIES: As follows; his white count is up 12.2, hemoglobin 9.1, hematocrit 28.3, platelets 116. His chemistry shows sodium 142, potassium 3.6, chloride 100, bicarbonate 35. BUN 29, creatinine 5.4. His blood sugar is 77. The patient has liver enzyme, which is normal. The patient has PT/INR was 1.2. PT/INR and PTT 35.9. IMPRESSION AND PLAN: 1. Sepsis, fever 102. We will get blood cultures. The patient is getting the ID see the patient, Dr. Lara. He is getting meropenem and he is getting vancomycin. Repeat blood culture. Chest x-ray. 2. Pneumonia. We will continue vancomycin and meropenem. We will get pulmonary consult, Dr. Garza. We will add Xopenex to the pulmonary regimen and we will follow up on that. 3. Change in mental status. Dr. Almonte recalled again. CT of the head was done, which shows no bleed, we will continue current medicines. At this time also we are going to put nasogastric tube or Dobhoff tube with nipple at 30 mL per hour and also we will get lactulose twice a day may be that will help his mental status as the patient known to have chronic liver disease and hepatitis B. 4. Hypertension. We will add hydralazine IV p.r.n. The patient cannot get any p.o. meds at this time. Continue D10. Monitor his blood sugar and we will follow up clinically. 5. Chronic renal failure. Continue hemodialysis. 6. Toxic metabolic encephalopathy probably medications and sedation related with his underlying liver disease and renal disease should see some improvement by now, but probably sepsis make it complicated. We will continue IV antibiotics. We will get Dr. Almonte to evaluate the patient and we will monitor his condition. Continue current therapy and follow up clinically. The patient did not take any pain medications so far or any Ativan or any Neurologic medications like Risperdal. We will see the patient in the morning. Discussed the case with the nurse staff and treatment plan. Barber Aguirre MD
--- NOTE | 2017-04-15 22:53 | PN ---
DATE: 04/14/2017 SUBJECTIVE: The patient's mental status is poor, not responding except for severe painful stimuli; otherwise, the patient is in no respiratory distress. PHYSICAL EXAMINATION: VITAL SIGNS: The patient on 04/14/2017, his vital signs is as follows; temperature 98.3, heart rate 68, blood pressure 150/69, and respirations 18. HEENT: Head and neck; normal. No JVD. The patient's pupil reactive, not responding except to painful stimuli. CARDIAC: First sound and second sounds normal. CHEST: Clear. ABDOMEN: Soft and nontender. EXTREMITIES: No edema, left above-knee amputation. NEUROLOGIC: Poor mental status, no response. LABORATORY DATA: Blood sugar maintained in the 89 range on D10 at 10 mL. His laboratory studies on 04/14/2017, sodium 142, potassium 3.6, chloride 100, bicarb 35, BUN 29, creatinine 5.4, blood sugar 84, and calcium 9.1. His liver enzymes were normal. CBC shows here white count 6.4, hemoglobin 7.9, hematocrit 24.6, and platelets 75. IMPRESSION AND PLAN: 1. Change in mental status probably toxic metabolic encephalopathy due to his current surgery with anesthesia medications, sedation with his underlying chronic failure and chronic hepatic disease, chronic hepatitis B. The patient had a CT of the head in the past was negative. We will repeat CT in the morning. We will consider evaluation by neuro consult Dr. Almonte, who is already on the case and we will follow up clinically. At this time, we will continue D10 at 15 mL and monitor his blood sugar. We will get a CT of the head. As per Neuro, we will follow up with the Neurology consult. 2. Status post amputation left leg, local wound care, seems stable. 3. Hypertension. The patient cannot get p.o. medications. At this time, blood pressure is stable, we will monitor his clinical status, n.p.o. because his mental status and we will follow up clinically and we will reevaluate in the morning. 4. The patient had chronic renal failure. Chronic liver disease. Continue monitor. We will get GI consult evaluations for his conditions and we will follow up with them. He did not get any risperidone recently and he is currently on D10, all the medications except IV Rocephin and vancomycin during dialysis no other meds, we will follow up with ID consult also. Continue current therapy. Barber Aguirre MD
[2017-04-16] MEDS: Levalbuterol 0.63 MG/3 ML Inhal Soln UD IH PRN ×2 (07:37→13:56)
[2017-04-16] MEDS: Insulin Reg-MEDIUM-Coverage SC SCH ×4 (08:32→22:16)
--- NOTE | 2017-04-16 09:48 | RAD ---
HISTORY: s/p ng feeding tube COMPARISON: Chest x-ray performed 04/15/17 TECHNIQUE: Chest, one view. FINDINGS: Right-sided PICC extends to the cavoatrial junction. Nasogastric tube extends expected location of the stomach. LUNGS: Patchy/ increasing left lower lobe infiltrate. Left perihilar component persists. Scattered bilateral probable calcified granulomas. PLEURA: No significant pleural effusion identified. No definite pneumothorax . CARDIOVASCULAR: Mild cardiomegaly. Atherosclerotic calcifications of the aorta. OSSEOUS STRUCTURES: Degenerative changes. Osseous demineralization. VISUALIZED UPPER ABDOMEN: Unremarkable. OTHER FINDINGS: None. IMPRESSION: Right-sided PICC extends to the cavoatrial junction. Nasogastric tube extends expected location of the stomach. Patchy/ increasing left lower lobe infiltrate. Left perihilar component persists. Scattered bilateral probable calcified granulomas.
[2017-04-16] MEDS: Ammonium Lactate 12% Cream (140 g) TOP SCH ×2 (09:49→17:49)
--- NOTE | 2017-04-16 12:14 | CP.PCM.PN ---
Subjective - Date & Time of Evaluation Date of Evaluation: 04/16/17 Time of Evaluation: 06:40 - Subjective Subjective: General Surgery- Dr. Joy Patient seen and examined at bedside this AM. responds to painful stimuli, difficult to arouse. LLE AKA stump dressing changed at bedside. Dressing C/D/I Objective - Vital Signs/Intake and Output Vital Signs (last 24 hours): Temp Pulse Resp BP Pulse Ox 97.8 F 64 20 145/62 96 04/16/17 08:00 04/16/17 08:00 04/16/17 08:00 04/16/17 11:07 04/16/17 08:00 Intake and Output: 04/16/17 04/16/17 06:59 18:59 Intake Total 240 Balance 240 - Medications Medications: Current Medications Acetaminophen (Tylenol 325mg Tab) 650 mg PO Q6H PRN PRN Reason: Pain, Mild (1-3) Acetaminophen (Tylenol 325 Mg Supp) 325 mg RC Q4H PRN PRN Reason: Fever >100.4 F Last Admin: 04/15/17 07:40 Dose: 325 mg Amlodipine Besylate (Norvasc) 10 mg PO DAILY [facility] Last Admin: 04/16/17 11:07 Dose: 10 mg Aspirin (Ecotrin) 81 mg PO DAILY [facility] Last Admin: 04/15/17 09:01 Dose: Not Given Carvedilol (Coreg) 6.25 mg PO BID [facility] Last Admin: 04/14/17 09:35 Dose: Not Given Donepezil HCl (Aricept) 10 mg PO HS [facility] Last Admin: 04/13/17 22:34 Dose: Not Given Heparin Sodium (Porcine) (Heparin) 5,000 units SC Q12 [facility] PRN Reason: Protocol Last Admin: 04/16/17 11:06 Dose: 5,000 units Hydralazine HCl (Apresoline) 100 mg PO Q8 [facility] Last Admin: 04/13/17 13:37 Dose: Not Given Hydralazine HCl (Apresoline) 10 mg IVP Q6 PRN PRN Reason: Other Dextrose (Dextrose 10% In Water) 500 mls @ 20 mls/hr IV .Q24H [facility] Last Admin: 04/16/17 05:30 Dose: 20 mls/hr Meropenem 250 mg/ Sodium (Chloride) 100 mls @ 100 mls/hr IVPB Q12H [facility] PRN Reason: Protocol Stop: 04/29/17 10:01 Last Admin: 04/16/17 11:06 Dose: 100 mls/hr Insulin Human Regular (Humulin R Med) 0 units SC ACHS [facility] PRN Reason: Protocol Last Admin: 04/16/17 11:59 Dose: Not Given Lactic Acid (Lac-Hydrin 12% Cream (140 G)) 0 ea TOP BID [facility] Last Admin: 04/15/17 17:53 Dose: Not Given Lactulose (Enulose) 20 gm NG BID [facility] Last Admin: 04/16/17 11:06 Dose: 20 gm Levalbuterol HCl (Xopenex) 0.63 mg IH [id number] PRN PRN Reason: Shortness of Breath Last Admin: 04/16/17 07:37 Dose: 0.63 mg Pregabalin (Lyrica) 50 mg PO TID [facility] Last Admin: 04/13/17 18:11 Dose: Not Given Risperidone (Risperdal Tab) 1 mg PO HS [facility] PRN Reason: Protocol Last Admin: 04/13/17 22:34 Dose: Not Given Valsartan (Diovan) 320 mg PO DAILY [facility] Last Admin: 04/16/17 11:08 Dose: 320 mg - Labs Labs: 04/15/17 08:45 04/15/17 08:45 PT 14.0 SECONDS (9.4-12.5) H 04/11/17 06:43 INR 1.27 (0.93-1.08) H 04/11/17 06:43 APTT 35.9 Seconds (25.1-36.5) 04/10/17 10:23 - Constitutional Appears: Non-toxic, Chronically Ill - Head Exam Head Exam: ATRAUMATIC - Eye Exam Pupil Exam: PERRL - Respiratory Exam Respiratory Exam: NORMAL BREATHING PATTERN. absent: Accessory Muscle Use, Respiratory Distress - Cardiovascular Exam Cardiovascular Exam: +S1, +S2. absent: Bradycardia, Tachycardia - GI/Abdominal Exam GI & Abdominal Exam: Soft. absent: Distended, Firm, Guarding, Rigid, Tenderness - Extremities Exam Extremities Exam: absent: Calf Tenderness Additional comments: LAKA stump C/D/I sutures and geronimo in place - Neurological Exam Neurological Exam: Altered, Awake - Skin Skin Exam: Intact, Warm Assessment and Plan - Assessment and Plan (Free Text) Assessment: 76M s/p left above the knee amputation POD#5 Plan: - Swallow study tomorrow * will re-asses if dobhoff needs to put put back in place for tube feeds - dressing change w/ xerofrom 4x4 krillex, and NEELA bandage - pain control PRN - c/w ABx - medical management per primary team - further recs per Dr. Joy surgical attending Don Toney PGY1
--- NOTE | 2017-04-16 13:51 | PN ---
DATE: 04/16/2017 LOCATION: The patient in room number 563, bed 1. REASON FOR CONSULTATION AND FOLLOWUP: End-stage renal failure on dialysis, peripheral vascular disease, nonhealing ulcer, hypertension, hyperlipidemia, status post [id number] amputation of left leg and altered mental status. SUBJECTIVE: The patient slightly more arousable today as compared to last 2 days. The patient does not seem to be in any acute respiratory distress, lying flat in bed. PHYSICAL EXAMINATION: VITAL SIGNS: Blood pressure of 145/62, respirations of 20, pulse of 64, and temperature of 97.8. HEENT: Head is normocephalic. Eyes; pupils are normal. Conjunctivae slightly pale. NECK: JVP is low. Carotids are equal. THORAX: AP diameter normal. LUNGS: No significant rales. CARDIOVASCULAR: S1 and S2. ABDOMEN: Soft. No tenderness. No organomegaly. EXTREMITIES: The patient had amputation of left leg [id number]. LABORATORY DATA: WBC is 12.2, hemoglobin is 9.1, hematocrit is 28.3, and platelets are 116. Glucose is 95, sodium is 142, potassium is 3.6, BUN is 29, and creatinine is 5.4. AST and ALT are normal. Total protein is 6.2 and albumin is 2.6. DIAGNOSES: Altered mental status, the patient drowsy, but probably related to sepsis, also metabolic encephalopathy component. The patient with end-stage renal failure on dialysis, status post amputation [id number] left leg, hypertension, and hyperlipidemia. PLAN: The patient's altered mental status and drowsiness are probably related to both sepsis and metabolic encephalopathy. The patient has been seen by Infectious Diseases and has been receiving antibiotics. The patient now has a feeding tube and being fed through the feeding tube. Getting meropenem 250 mg IV q.12 hours. The patient was on hydralazine 100 mg q.8 hours, carvedilol 6.25 b.i.d., Diovan 320 daily, aspirin 81 daily, Lyrica 50 t.i.d., amlodipine 10 daily, and right now oral medications has been on hold. The patient is on feeding tube and getting feeding through the feeding tube. We will follow with you. Ulysses Gama MD [facility] # [id number]
--- NOTE | 2017-04-16 14:04 | CP.PCM.PN ---
Subjective - Date & Time of Evaluation Date of Evaluation: 04/16/17 Time of Evaluation: 13:30 - Subjective Subjective: Lethargic, rouses when name is called. Non verbal or unable to follow command. Objective - Vital Signs/Intake and Output Vital Signs (last 24 hours): Temp Pulse Resp BP Pulse Ox 97.8 F 64 20 145/62 96 04/16/17 08:00 04/16/17 08:00 04/16/17 08:00 04/16/17 11:07 04/16/17 08:00 Intake and Output: 04/16/17 04/16/17 06:59 18:59 Intake Total 240 Balance 240 - Medications Medications: Current Medications Acetaminophen (Tylenol 325mg Tab) 650 mg PO Q6H PRN PRN Reason: Pain, Mild (1-3) Acetaminophen (Tylenol 325 Mg Supp) 325 mg RC Q4H PRN PRN Reason: Fever >100.4 F Last Admin: 04/15/17 07:40 Dose: 325 mg Amlodipine Besylate (Norvasc) 10 mg PO DAILY [facility] Last Admin: 04/16/17 11:07 Dose: 10 mg Aspirin (Ecotrin) 81 mg PO DAILY [facility] Last Admin: 04/15/17 09:01 Dose: Not Given Carvedilol (Coreg) 6.25 mg PO BID [facility] Last Admin: 04/14/17 09:35 Dose: Not Given Donepezil HCl (Aricept) 10 mg PO HS [facility] Last Admin: 04/13/17 22:34 Dose: Not Given Heparin Sodium (Porcine) (Heparin) 5,000 units SC Q12 [facility] PRN Reason: Protocol Last Admin: 04/16/17 11:06 Dose: 5,000 units Hydralazine HCl (Apresoline) 100 mg PO Q8 [facility] Last Admin: 04/13/17 13:37 Dose: Not Given Hydralazine HCl (Apresoline) 10 mg IVP Q6 PRN PRN Reason: Other Dextrose (Dextrose 10% In Water) 500 mls @ 20 mls/hr IV .Q24H [facility] Last Admin: 04/16/17 05:30 Dose: 20 mls/hr Meropenem 250 mg/ Sodium (Chloride) 100 mls @ 100 mls/hr IVPB Q12H [facility] PRN Reason: Protocol Stop: 04/29/17 10:01 Last Admin: 04/16/17 11:06 Dose: 100 mls/hr Insulin Human Regular (Humulin R Med) 0 units SC ACHS [facility] PRN Reason: Protocol Last Admin: 04/16/17 11:59 Dose: Not Given Lactic Acid (Lac-Hydrin 12% Cream (140 G)) 0 ea TOP BID [facility] Last Admin: 04/15/17 17:53 Dose: Not Given Lactulose (Enulose) 20 gm NG BID [facility] Last Admin: 04/16/17 11:06 Dose: 20 gm Levalbuterol HCl (Xopenex) 0.63 mg IH [id number] PRN PRN Reason: Shortness of Breath Last Admin: 04/16/17 07:37 Dose: 0.63 mg Pregabalin (Lyrica) 50 mg PO TID [facility] Last Admin: 04/13/17 18:11 Dose: Not Given Risperidone (Risperdal Tab) 1 mg PO HS [facility] PRN Reason: Protocol Last Admin: 04/13/17 22:34 Dose: Not Given Valsartan (Diovan) 320 mg PO DAILY [facility] Last Admin: 04/16/17 11:08 Dose: 320 mg - Labs Labs: 04/15/17 08:45 04/15/17 08:45 PT 14.0 SECONDS (9.4-12.5) H 04/11/17 06:43 INR 1.27 (0.93-1.08) H 04/11/17 06:43 APTT 35.9 Seconds (25.1-36.5) 04/10/17 10:23 - Constitutional Appears: No Acute Distress, Chronically Ill - Head Exam Head Exam: NORMOCEPHALIC - Eye Exam Eye Exam: Normal appearance, PERRL - ENT Exam ENT Exam: Mucous Membranes Moist - Neck Exam Neck Exam: Normal Inspection - Respiratory Exam Respiratory Exam: Decreased Breath Sounds, NORMAL BREATHING PATTERN - Cardiovascular Exam Cardiovascular Exam: REGULAR RHYTHM, +S1 - GI/Abdominal Exam GI & Abdominal Exam: Soft, Hypoactive Bowel Sounds - Neurological Exam Neurological Exam: Altered - Skin Skin Exam: Dry, Warm Assessment and Plan - Assessment and Plan (Free Text) Assessment: 76 year old male with history of ESRD, HD dependent,PVD,HTNdementia, DM who was admitted with altered mental status and a non healing left foot ulcer, he is s/ p left AKA. Patients daughter Misti at bedside. Daughter affirms that patient does not have an Advanced Directive. Discussion regarding goals of care and resuscitation status ensued. Benefits and burdens of CPR/intubation/ PEG feeding explained in detail. Questions answered. Misti states that she wants full medical treatment for her father, including resuscitation and artificial feeding.Psychosocial support given. Time spent in goals of care and advance care planning discussion, 40 minutes Plan: Palliative support in establishing goals of care Full code status
--- NOTE | 2017-04-16 14:42 | RAD ---
HISTORY: Placement of NGT COMPARISON: 04/15/2017 at 5:30 p.m. FINDINGS: LUNGS: Persistent extensive opacity at left lung base. The examination is somewhat limited due to oblique positioning. There are multiple small calcified granulomas in the left upper lobe as well as in the right upper lobe and lateral to the left hilum. . PLEURA: Probable small left pleural effusion. No right pleural effusion. CARDIOVASCULAR: Normal heart size. Right PICC catheter grossly unchanged, terminating in the region of the superior vena cava. Double off tube unchanged, extending to left upper quadrant of abdomen. OSSEOUS STRUCTURES: No significant abnormalities. VISUALIZED UPPER ABDOMEN: Normal. OTHER FINDINGS: None. IMPRESSION: Left basilar infiltrate. Old granulomatous disease. Probable small left pleural effusion.
[2017-04-16 15:33] LABS: HEMATOCRIT 26.5 % (42.0-52.0); MEAN CELL VOLUME 86.9 fl (80.0-105.0); MEAN CORPUSCULAR HEMOGLOBIN 27.9 pg (25.0-35.0); MEAN CORPUSCULAR HGB CONC 32.1 g/dl (31.0-37.0); MEAN PLATELET VOLUME 11.1 fl (7.0-11.0); RED CELL DISTRIBUTION WIDTH 16.8 % (11.5-14.5); WHITE BLOOD COUNT 17.5 10^3/ul (4.5-11.0)
--- NOTE | 2017-04-16 19:26 | CP.PCM.PN ---
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; now getting tube feeds; abx coverage broadened; Objective - Vital Signs/Intake and Output Vital Signs (last 24 hours): Temp Pulse Resp BP Pulse Ox 98 F 67 20 166/66 H 97 04/16/17 16:00 04/16/17 16:00 04/16/17 16:00 04/16/17 16:00 04/16/17 16:00 - Medications Medications: Current Medications Acetaminophen (Tylenol 325mg Tab) 650 mg PO Q6H PRN PRN Reason: Pain, Mild (1-3) Acetaminophen (Tylenol 325 Mg Supp) 325 mg RC Q4H PRN PRN Reason: Fever >100.4 F Last Admin: 04/15/17 07:40 Dose: 325 mg Amlodipine Besylate (Norvasc) 10 mg PO DAILY [facility] Last Admin: 04/16/17 11:07 Dose: 10 mg Aspirin (Ecotrin) 81 mg PO DAILY [facility] Last Admin: 04/16/17 11:05 Dose: 81 mg Carvedilol (Coreg) 6.25 mg PO BID [facility] Last Admin: 04/14/17 09:35 Dose: Not Given Donepezil HCl (Aricept) 10 mg PO HS [facility] Last Admin: 04/13/17 22:34 Dose: Not Given Heparin Sodium (Porcine) (Heparin) 5,000 units SC Q12 [facility] PRN Reason: Protocol Last Admin: 04/16/17 11:06 Dose: 5,000 units Hydralazine HCl (Apresoline) 100 mg PO Q8 [facility] Last Admin: 04/13/17 13:37 Dose: Not Given Hydralazine HCl (Apresoline) 10 mg IVP Q6 PRN PRN Reason: Other Dextrose (Dextrose 10% In Water) 500 mls @ 20 mls/hr IV .Q24H [facility] Last Admin: 04/16/17 05:30 Dose: 20 mls/hr Meropenem 250 mg/ Sodium (Chloride) 100 mls @ 100 mls/hr IVPB Q12H [facility] PRN Reason: Protocol Stop: 04/29/17 10:01 Last Admin: 04/16/17 11:06 Dose: 100 mls/hr Insulin Human Regular (Humulin R Med) 0 units SC ACHS [facility] PRN Reason: Protocol Last Admin: 04/16/17 17:48 Dose: Not Given Lactic Acid (Lac-Hydrin 12% Cream (140 G)) 0 ea TOP BID [facility] Last Admin: 04/16/17 17:49 Dose: Not Given Lactulose (Enulose) 20 gm NG BID [facility] Last Admin: 04/16/17 18:22 Dose: Not Given Levalbuterol HCl (Xopenex) 0.63 mg IH [id number] PRN PRN Reason: Shortness of Breath Last Admin: 04/16/17 13:56 Dose: 0.63 mg Pregabalin (Lyrica) 50 mg PO TID [facility] Last Admin: 04/13/17 18:11 Dose: Not Given Risperidone (Risperdal Tab) 1 mg PO HS [facility] PRN Reason: Protocol Last Admin: 04/13/17 22:34 Dose: Not Given Valsartan (Diovan) 320 mg PO DAILY [facility] Last Admin: 04/16/17 11:08 Dose: 320 mg - Labs Labs: 04/16/17 15:27 04/15/17 08:45 PT 14.0 SECONDS (9.4-12.5) H 04/11/17 06:43 INR 1.27 (0.93-1.08) H 04/11/17 06:43 APTT 35.9 Seconds (25.1-36.5) 04/10/17 10:23 - Constitutional Appears: No Acute Distress - Eye Exam Eye Exam: absent: Scleral icterus - ENT Exam ENT Exam: Mucous Membranes Moist - Respiratory Exam Additional comments: Decreased breath sounds on L; clear on R; - Cardiovascular Exam Cardiovascular Exam: RRR, +S1, +S2 - GI/Abdominal Exam GI & Abdominal Exam: Soft. absent: Distended, Tenderness - Extremities Exam Additional comments: no leg edema; - Neurological Exam Additional comments: Arousable to name, still lethargic to answer any questions; - Psychiatric Exam Psychiatric exam: absent: Agitated - Skin Skin Exam: Warm. absent: Cyanosis Assessment and Plan (1) Delirium Assessment & Plan: Mental status slightly improved (more arousable to verbal stimuli today); thought to be toxic encephalopathy, possibly due to sepsis (CXR indicative of HCAP); any uremic component being corrected with HD; should continue to hold psychotropic meds; awaiting neuro recs; Status: Acute (2) ESRD (end stage renal disease) Assessment & Plan: Stable electrolyte and volume status; HD tomorrow per routine; Status: Chronic (3) Heel ulceration Assessment & Plan: s/p L AKA; avoid morphine for pain relief in HD patient; Status: Acute (4) Anemia in ESRD (end-stage renal disease) Assessment & Plan: s/p multiple units prbc transfusion; aranesp dose increased, will continue to dose weekly on HD; Status: Acute (5) Chronic kidney disease-mineral and bone disorder Assessment & Plan: Corrected Ca high/normal; continue sensipar 30 mg daily; Status: Acute (6) Hypertensive CKD, ESRD on dialysis Assessment & Plan: BP control fluctuating; avoiding dropping BP in the setting of decreased PO intake and delirium; hydralazine and coreg on hold; continue amlodipine and valsartan; Status: Acute (7) Sepsis Assessment & Plan: Previously with MRSA affecting R heel; now with likely HCAP; started on meropenem; should dose abx for HD to avoid toxic accumulation and PARA EDUCATOR effects; Status: Acute
[2017-04-17] MEDS: Albuterol-Ipratrop 3 mg / 0.5 (3 ml) UD IH SCH ×4 (01:50→20:17)
--- NOTE | 2017-04-17 05:07 | CON ---
DATE: HISTORY OF PRESENT ILLNESS: This is a 76-year-old black male with past medical history of renal failure on hemodialysis, hepatitis B, history of nephrectomy and dementia and was admitted to hospital. Had left [id number]-[id number] amputation last and the patient is very confused and rapid response was called yesterday. The patient pulled his NG tube and the patient lying comfortably. Open eyes to verbal command, but does not answer the questions, called to evaluate the patient. PAST MEDICAL HISTORY: Dementia, renal failure, chronic hepatitis B, dysphagia, and renal disease. PHYSICAL EXAMINATION NEUROLOGICAL: On examination, the patient is confused and open eyes to verbal command, but does not follow any commands and no spontaneous movement of the lower extremities status post amputation of the left lower extremity [id number] and spontaneous movement of the both upper extremities noted. Sensory appears intact. Cerebellar; gait deferred. IMPRESSION: A 76-year-old black male with end-stage renal disease, hypertension, status post left [id number]-[id number] amputation, has been confused and superimposed on dementia. CAT scan of the head did not show any acute changes; encephalopathy superimposed on dementia and multiple medical problems and continue present management. We will followup. We will do EEG. Sanjiv Almonte MD
--- NOTE | 2017-04-17 05:33 | CON ---
PULMONARY CONSULTATION DATE: 04/16/2017 REFERRING PHYSICIAN: Barber Aguirre MD REASON FOR CONSULT: Pneumonia. HISTORY OF PRESENT ILLNESS: This is a 76-year-old gentleman with past medical history significant for hypertension, renal failure, dialysis dependent, peripheral vascular disease, and has been in the hospital for last few days. My consult was requested because of fever up to pneumonia, and already on broad-spectrum antibiotics covering healthcare-associated organism. Presently lying in the bed, lethargic, arousable, but goes back to sleep, had a nasogastric tube which he pulled out, and awaiting for the new tube to be placed in. He has chronic wound on the left lower extremity, which is nonhealing ulcer. PAST MEDICAL HISTORY: Renal failure, dialysis dependent; history of stroke; history of nephrectomy; peripheral vascular disease with foot ulcers; and hypertension. ALLERGIES: NONE KNOWN. SOCIAL HISTORY: Nonsmoker and nondrinker. FAMILY HISTORY: No significant cardiopulmonary disease reported. MEDICATIONS: He is on hydralazine 100 mg q.8 hours, also hydralazine 10 mg IV q.6 hours p.r.n, Aricept 10 mg daily, Coreg 6.25 mg twice a day, p.r.n dextrose, Diovan 320 mg daily, Ecotrin 81 mg daily, lactulose 20 g twice a day, heparin 5000 units subcutaneously q.8 hours, insulin coverage, Lyrica 50 mg 3 times a day, meropenem 250 mg q.12 hours, Norvasc 10 mg daily, Risperdal 1 mg at bedtime, Tylenol p.r.n basis, and Xopenex inhaled q.6 hours. REVIEW OF SYSTEMS: Sleepy, arousable, lethargic, open eyes, goes back to sleep, confused, pulled out his nasogastric tube, and presented too lethargic to have a p.o. diet. Has some cough. No sputum production. No hemoptysis. No hematemesis. No hematuria. No diarrhea reported. Has a left leg surgery with amputation. PHYSICAL EXAMINATION: GENERAL: Lying in the bed, lethargic. VITAL SIGNS: Temperature is 98, heart rate is 66, respiratory rate is 20, blood pressure is 166/66, and pulse ox is 97% on nasal cannula. HEENT: Moist mucous membrane. No ulcer or thrush noted. NECK: Supple. No JVD. LUNGS: Has scattered rhonchi. HEART: S1 and S2. ABDOMEN: Soft and nontender. No organomegaly. EXTREMITIES: There is not much edema. Left stump has a dressing. NEUROLOGIC: Lethargic, arousable. LABORATORY DATA: Shows hemoglobin is 8.5, hematocrit is 26.5, WBC is 17.5, and platelet count is 165. Sodium is 140, potassium is 3.9, chloride is 102, bicarbonate is 29, BUN is 16, creatinine is 3.9, glucose is 115, calcium is 9.5, phosphorus is 3.3, magnesium is 1.9, AST is 25, ALT is 18, alk phos is 89, and ammonia level less than 9. Troponin is 0.04. Albumin is 2.7. Procalcitonin is 4.2. Stool occult blood is positive. On admission, his wound was positive for multiple organisms. Blood culture has been negative. Chest x-ray done yesterday shows left basilar infiltrate, old granulomatous disease, probably small to left pleural effusion. IMPRESSION AND PLAN: Altered mental status; sepsis with healthcare-associated pneumonia, renal failure, dialysis dependent; history of hypertension; peripheral vascular disease, status post above-knee amputation of the left leg; and hyperlipidemia. Case discussed with the nursing staff. I will hold his Neurontin and other sedative medications were used as p.r.n. basis. Keep head elevated 45 degrees, and add bronchodilators. Follow up ABG in the morning. Gastric prophylaxis. Elevate lower extremity. Thank you and we will follow with you. Ulysses Garza MD
[2017-04-17 06:27] LABS: ARTERIAL BLOOD GAS HCO3 27.8 mmol/L (21-28); ARTERIAL BLOOD GAS O2 CAPACITY 11.6 mL/dl (16-24); ARTERIAL BLOOD GAS O2 CONTENT 11.5 ML/dl (15-23); ARTERIAL BLOOD GAS PH 7.45 (7.35-7.45); ARTERIAL BLOOD HGB O2 SAT 96.4 % (95.0-98.0); CARBOXYHEMOGLOBIN 1.5 % (0.5-1.5); HHB 0.9 % (0-5); METHEMOGLOBIN 1.3 % (0.0-3.0)
[2017-04-17] MEDS: Insulin Reg-MEDIUM-Coverage SC SCH ×4 (07:51→22:52)
--- NOTE | 2017-04-17 10:14 | PN ---
DATE: 04/16/2017 SUBJECTIVE: The patient in the bed, clinically improving his mental status. He is responding to calling his name. He opened his eyes. He kind of not talking, but he breath less than before. The patient pulled his Dobhoff tube, which he is getting for feeding in lactulose; however, he still cannot eat for now. He is on D10 currently. There is no distress, no respiratory distress, seems comfortable, does not seem to be in any discomfort. PHYSICAL EXAMINATION: VITAL SIGNS: On 04/16/2017, temperature 98, heart rate 67, blood pressure 145/62, respirations 20, and saturating 99% on room air. HEAD AND NECK: Normal. No JVD. No thyromegaly. CHEST: Clear, no wheeze. CARDIAC: First and second sound are normal. ABDOMEN: Soft and nontender. EXTREMITIES: Left leg amputations and right leg seems normal. NEUROLOGIC: He seems moving, responding to call and commands, improving. LABORATORY STUDIES: His white count went up to 17.7, hemoglobin 8.5, hematocrit 26.5, platelets 165. Chemistry simon, the patient does have blood sugar in the 115 range. His sodium 140, potassium 3.9, chloride 102, bicarbonate 29, BUN 16, creatinine 3.9. His blood sugar is 117. Liver function test is normal. His troponin slightly elevated at 0.03, went up to 0.04. Albumin is low at 2.7. The patient has poor p.o. intake and also his pro-calcitonin 4.22, consistent with infection. The chest x-ray also was done, which shows left lung opacity, consistent with possible pneumonia. IMPRESSION AND PLAN: 1. Sepsis due to left lower lobe pneumonia. 2. pneumonia. 3. The patient has left leg gangrene with osteomyelitis, status post amputation of left leg. 4. Chronic renal failure, chronic hepatitis B. We will monitor his status, seems the patient took off his lactulose by taking off the Dobhoff tube that we put him the medicine in it. 5. Change in mental status, probably toxic metabolic encephalopathy due to possible anesthesia related with chronic renal and liver disease and slowly clearance of the medications. It seems clinically better, more opening his eyes and calling his name and much better mental status. At this time, we will continue D10, continue IV antibiotic as per ID consults. The patient is also seen by Dr. Kincaid and by Dr. Gama. We will also get pulmonary consult, Dr. Garza, to follow up on the case. Continue IV antibiotic at this time, continue bronchodilator. At this time, the patient is getting meropenem 250 mg IV q.12 due to his renal failure and dosage has been adjusted, and continue all blood pressure medicine, hydralazine p.r.n. if the patient cannot take p.o. meds, Tylenol p.r.n., Xopenex, Diovan, and heparin 5000 q.12. Continue current therapy, continue aspirin. Follow up clinically. If the patient tolerate p.o., we will continue meds. Otherwise, we will have to put the NG tube again. I believe, he will improve, and he will be able to resume his meds. Barber Aguirre MD
[2017-04-17] MEDS: Ammonium Lactate 12% Cream (140 g) TOP SCH ×2 (10:29→18:45)
--- NOTE | 2017-04-17 10:51 | CP.PCM.PN ---
Subjective - Date & Time of Evaluation Date of Evaluation: 04/17/17 Time of Evaluation: 10:48 - Subjective Subjective: Surgery Pt s&e. Dressing changed. NAEON. Objective - Vital Signs/Intake and Output Vital Signs (last 24 hours): Temp Pulse Resp BP Pulse Ox 98.6 F 61 18 146/61 100 04/17/17 07:27 04/17/17 07:27 04/17/17 07:27 04/17/17 07:27 04/17/17 07:27 Intake and Output: 04/17/17 04/17/17 06:59 18:59 Intake Total 0 Balance 0 - Medications Medications: Current Medications Acetaminophen (Tylenol 325mg Tab) 650 mg PO Q6H PRN PRN Reason: Pain, Mild (1-3) Acetaminophen (Tylenol 325 Mg Supp) 325 mg RC Q4H PRN PRN Reason: Fever >100.4 F Last Admin: 04/15/17 07:40 Dose: 325 mg Albuterol/Ipratropium (Duoneb 3 Mg/0.5 Mg (3 Ml) Ud) 3 ml IH [id number] [facility] Last Admin: 04/17/17 07:22 Dose: 3 ml Amlodipine Besylate (Norvasc) 10 mg PO DAILY [facility] Last Admin: 04/17/17 10:29 Dose: Not Given Aspirin (Ecotrin) 81 mg PO DAILY [facility] Last Admin: 04/17/17 10:29 Dose: Not Given Carvedilol (Coreg) 6.25 mg PO BID [facility] Last Admin: 04/14/17 09:35 Dose: Not Given Donepezil HCl (Aricept) 10 mg PO HS [facility] Last Admin: 04/13/17 22:34 Dose: Not Given Heparin Sodium (Porcine) (Heparin) 5,000 units SC Q12 [facility] PRN Reason: Protocol Last Admin: 04/17/17 10:25 Dose: 5,000 units Hydralazine HCl (Apresoline) 100 mg PO Q8 [facility] Last Admin: 04/13/17 13:37 Dose: Not Given Hydralazine HCl (Apresoline) 10 mg IVP Q6 PRN PRN Reason: Other Dextrose (Dextrose 10% In Water) 500 mls @ 20 mls/hr IV .Q24H [facility] Last Admin: 04/17/17 06:37 Dose: 20 mls/hr Meropenem 250 mg/ Sodium (Chloride) 100 mls @ 100 mls/hr IVPB Q12H [facility] PRN Reason: Protocol Stop: 04/29/17 10:01 Last Admin: 04/17/17 10:29 Dose: 100 mls/hr Insulin Human Regular (Humulin R Med) 0 units SC ACHS [facility] PRN Reason: Protocol Last Admin: 04/17/17 07:51 Dose: Not Given Lactic Acid (Lac-Hydrin 12% Cream (140 G)) 0 ea TOP BID [facility] Last Admin: 04/17/17 10:29 Dose: Not Given Lactulose (Enulose) 20 gm NG BID [facility] Last Admin: 04/17/17 10:29 Dose: Not Given Levalbuterol HCl (Xopenex) 0.63 mg IH [id number] PRN PRN Reason: Shortness of Breath Last Admin: 04/16/17 13:56 Dose: 0.63 mg Valsartan (Diovan) 320 mg PO DAILY [facility] Last Admin: 04/17/17 10:29 Dose: Not Given - Labs Labs: 04/16/17 15:27 04/15/17 08:45 PT 14.0 SECONDS (9.4-12.5) H 04/11/17 06:43 INR 1.27 (0.93-1.08) H 04/11/17 06:43 APTT 35.9 Seconds (25.1-36.5) 04/10/17 10:23 - Constitutional Appears: No Acute Distress, Chronically Ill - Head Exam Head Exam: ATRAUMATIC, NORMAL INSPECTION, NORMOCEPHALIC - Eye Exam Eye Exam: EOMI, Normal appearance, PERRL Pupil Exam: NORMAL ACCOMODATION, PERRL - ENT Exam ENT Exam: Mucous Membranes Moist, Normal Exam - Neck Exam Neck Exam: Full ROM, Normal Inspection. absent: Lymphadenopathy - Respiratory Exam Respiratory Exam: Clear to Ausculation Bilateral, NORMAL BREATHING PATTERN - Cardiovascular Exam Cardiovascular Exam: REGULAR RHYTHM, +S1, +S2. absent: Murmur - GI/Abdominal Exam GI & Abdominal Exam: Soft, Normal Bowel Sounds. absent: Distended, Tenderness - Extremities Exam Extremities Exam: Tenderness. absent: Full ROM Additional comments: Contracted. L AKA stump. Incision C/D/I. TTP - Neurological Exam Neurological Exam: Awake. absent: Alert, Normal Gait, Oriented x3 - Skin Skin Exam: Dry, Intact, Normal Color, Warm Assessment and Plan - Assessment and Plan (Free Text) Assessment: 76M s/p left above the knee amputation POD#6 Plan: - Swallow study * will re-asses if dobhoff needs to put put back in place for tube feeds - dressing change w/ xerofrom 4x4 krillex, and NEELA bandage - pain control PRN - c/w ABx - medical management per primary team -No further surgical intervention needed. DW Dr. Joy surgical attending
--- NOTE | 2017-04-17 12:39 | CP.PCM.PN ---
<Chanel Schulz - Last Filed: 04/17/17 12:37> Subjective - Date & Time of Evaluation Date of Evaluation: 04/17/17 Time of Evaluation: 10:15 - Subjective Subjective: S&E at bedside, chart reviewed, patient a bit more alert, pulled put ngtube. Objective - Vital Signs/Intake and Output Vital Signs (last 24 hours): Temp Pulse Resp BP Pulse Ox 98.6 F 61 18 146/61 100 04/17/17 07:27 04/17/17 07:27 04/17/17 07:27 04/17/17 07:27 04/17/17 07:27 Intake and Output: 04/17/17 04/17/17 06:59 18:59 Intake Total 0 Balance 0 - Medications Medications: Current Medications Acetaminophen (Tylenol 325mg Tab) 650 mg PO Q6H PRN PRN Reason: Pain, Mild (1-3) Acetaminophen (Tylenol 325 Mg Supp) 325 mg RC Q4H PRN PRN Reason: Fever >100.4 F Last Admin: 04/15/17 07:40 Dose: 325 mg Albuterol/Ipratropium (Duoneb 3 Mg/0.5 Mg (3 Ml) Ud) 3 ml IH [id number] [facility] Last Admin: 04/17/17 07:22 Dose: 3 ml Amlodipine Besylate (Norvasc) 10 mg PO DAILY [facility] Last Admin: 04/17/17 10:29 Dose: Not Given Aspirin (Ecotrin) 81 mg PO DAILY [facility] Last Admin: 04/17/17 10:29 Dose: Not Given Carvedilol (Coreg) 6.25 mg PO BID [facility] Last Admin: 04/14/17 09:35 Dose: Not Given Donepezil HCl (Aricept) 10 mg PO HS [facility] Last Admin: 04/13/17 22:34 Dose: Not Given Heparin Sodium (Porcine) (Heparin) 5,000 units SC Q12 [facility] PRN Reason: Protocol Last Admin: 04/17/17 10:25 Dose: 5,000 units Hydralazine HCl (Apresoline) 100 mg PO Q8 [facility] Last Admin: 04/13/17 13:37 Dose: Not Given Hydralazine HCl (Apresoline) 10 mg IVP Q6 PRN PRN Reason: Other Dextrose (Dextrose 10% In Water) 500 mls @ 20 mls/hr IV .Q24H [facility] Last Admin: 04/17/17 06:37 Dose: 20 mls/hr Meropenem 250 mg/ Sodium (Chloride) 100 mls @ 100 mls/hr IVPB Q12H [facility] PRN Reason: Protocol Stop: 04/29/17 10:01 Last Admin: 04/17/17 10:29 Dose: 100 mls/hr Insulin Human Regular (Humulin R Med) 0 units SC ACHS [facility] PRN Reason: Protocol Last Admin: 04/17/17 11:40 Dose: Not Given Lactic Acid (Lac-Hydrin 12% Cream (140 G)) 0 ea TOP BID [facility] Last Admin: 04/17/17 10:29 Dose: Not Given Lactulose (Enulose) 20 gm NG BID [facility] Last Admin: 04/17/17 10:29 Dose: Not Given Levalbuterol HCl (Xopenex) 0.63 mg IH [id number] PRN PRN Reason: Shortness of Breath Last Admin: 04/16/17 13:56 Dose: 0.63 mg Valsartan (Diovan) 320 mg PO DAILY [facility] Last Admin: 04/17/17 10:29 Dose: Not Given - Labs Labs: 04/16/17 15:27 04/15/17 08:45 PT 14.0 SECONDS (9.4-12.5) H 04/11/17 06:43 INR 1.27 (0.93-1.08) H 04/11/17 06:43 APTT 35.9 Seconds (25.1-36.5) 04/10/17 10:23 - Constitutional Appears: No Acute Distress - Eye Exam Eye Exam: absent: Scleral icterus - ENT Exam ENT Exam: Mucous Membranes Dry - Respiratory Exam Respiratory Exam: NORMAL BREATHING PATTERN. absent: Respiratory Distress - Cardiovascular Exam Cardiovascular Exam: +S1, +S2 - GI/Abdominal Exam GI & Abdominal Exam: Soft, Normal Bowel Sounds. 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 for Chronic left heel wound with MRI evidence of osteomyelitis patient with history of debridement and endovascular intervention Dementia History of grade 1 varices and gastric ulcers Diabetes mellitus End stage renal disease on dialysis History of renal cancer with partial nephrectomy Hypertension Plan: on IV antibiotics as per ID Pending swallow evaluation,if pass evaluation recommend pured diet with assistance and aspiration precaution On lactulose, and Dhobhoff-tube pulled out did not receive few doses Monitor H&H and transfuse as necessary on DVT prophylaxis As per neuro, ID, surgery Seen and discussed with Dr. Huber. <Liss Huber V - Last Filed: 04/17/17 20:24> Objective - Vital Signs/Intake and Output Vital Signs (last 24 hours): Temp Pulse Resp BP Pulse Ox 98.6 F 61 18 146/61 100 04/17/17 07:27 04/17/17 07:27 04/17/17 07:27 04/17/17 07:27 04/17/17 07:27 - Medications Medications: Current Medications Acetaminophen (Tylenol 325mg Tab) 650 mg PO Q6H PRN PRN Reason: Pain, Mild (1-3) Acetaminophen (Tylenol 325 Mg Supp) 325 mg RC Q4H PRN PRN Reason: Fever >100.4 F Last Admin: 04/15/17 07:40 Dose: 325 mg Albuterol/Ipratropium (Duoneb 3 Mg/0.5 Mg (3 Ml) Ud) 3 ml IH [id number] [facility] Last Admin: 04/17/17 13:19 Dose: Not Given Amlodipine Besylate (Norvasc) 10 mg PO DAILY [facility] Last Admin: 04/17/17 10:29 Dose: Not Given Aspirin (Ecotrin) 81 mg PO DAILY [facility] Last Admin: 04/17/17 10:29 Dose: Not Given Carvedilol (Coreg) 6.25 mg PO BID [facility] Last Admin: 04/14/17 09:35 Dose: Not Given Donepezil HCl (Aricept) 10 mg PO HS [facility] Last Admin: 04/13/17 22:34 Dose: Not Given Heparin Sodium (Porcine) (Heparin) 5,000 units SC Q12 [facility] PRN Reason: Protocol Last Admin: 04/17/17 10:25 Dose: 5,000 units Hydralazine HCl (Apresoline) 100 mg PO Q8 [facility] Last Admin: 04/13/17 13:37 Dose: Not Given Hydralazine HCl (Apresoline) 10 mg IVP Q6 PRN PRN Reason: Other Dextrose (Dextrose 10% In Water) 500 mls @ 20 mls/hr IV .Q24H [facility] Last Admin: 04/17/17 06:37 Dose: 20 mls/hr Meropenem 250 mg/ Sodium (Chloride) 100 mls @ 100 mls/hr IVPB Q12H [facility] PRN Reason: Protocol Stop: 04/29/17 10:01 Last Admin: 04/17/17 10:29 Dose: 100 mls/hr Insulin Human Regular (Humulin R Med) 0 units SC ACHS [facility] PRN Reason: Protocol Last Admin: 04/17/17 18:44 Dose: Not Given Lactic Acid (Lac-Hydrin 12% Cream (140 G)) 0 ea TOP BID [facility] Last Admin: 04/17/17 18:45 Dose: Not Given Lactulose (Enulose) 20 gm NG BID [facility] Last Admin: 04/17/17 18:44 Dose: Not Given Levalbuterol HCl (Xopenex) 0.63 mg IH [id number] PRN PRN Reason: Shortness of Breath Last Admin: 04/16/17 13:56 Dose: 0.63 mg Valsartan (Diovan) 320 mg PO DAILY [facility] Last Admin: 04/17/17 10:29 Dose: Not Given - Labs Labs: 04/17/17 13:05 04/17/17 13:05 PT 14.0 SECONDS (9.4-12.5) H 04/11/17 06:43 INR 1.27 (0.93-1.08) H 04/11/17 06:43 APTT 35.9 Seconds (25.1-36.5) 04/10/17 10:23 Attending/Attestation - Attestation I have personally seen and examined this patient.: Yes I have fully participated in the care of the patient.: Yes I have reviewed all pertinent clinical information, including history, physical exam and plan: Yes Notes (Text): This is an addendum to GI progress report dictated by Chanel Schulz APN.The patient was seen and examined earlier. Medical records, lab studies, imagings were reviewed. Last 24 hours events reviewed. Agreed with the above treatment plan as outlined in Chanel Schulz APN's notes the with the addition of the following On examination patient was more alert Abdomen soft Repeat swallowing evaluation Resume diet with assistance only Discussed with the nursing staff May need to have NG tube was reinserted if any further worsening of the mental status 04/17/17 20:23
[2017-04-17 13:39] LABS: HEMATOCRIT 26.4 % (42.0-52.0); MEAN CELL VOLUME 85.7 fl (80.0-105.0); MEAN CORPUSCULAR HEMOGLOBIN 27.6 pg (25.0-35.0); MEAN CORPUSCULAR HGB CONC 32.2 g/dl (31.0-37.0); MEAN PLATELET VOLUME 10.8 fl (7.0-11.0); RED CELL DISTRIBUTION WIDTH 16.8 % (11.5-14.5); WHITE BLOOD COUNT 15.3 10^3/ul (4.5-11.0)
--- NOTE | 2017-04-17 14:02 | MRI ---
PROCEDURE: MRI BRAIN WITHOUT CONTRAST HISTORY: lethargy, ams COMPARISON: Comparison is made with previous MRI dated 08/06/2013 TECHNIQUE: Multiplanar, multisequence MR images of the brain were obtained without intravenous contrast enhancement. FINDINGS: HEMORRHAGE: None DWI: No evidence of an acute or early subacute infarction. BRAIN PARENCHYMA: No mass effect or edema. The ventricles are dilated out of proportion of the mildly dilated sulci suggestive of central atrophy or less likely mild hydrocephalus. Moderate hyperintense T2 white matter changes noted at the periventricular and subcortical region suggestive of chronic microvascular ischemic disease. VENTRICLES: Unremarkable. No hydrocephalus. CRANIUM: Unremarkable. ORBITS: Grossly unremarkable. PARANASAL SINUSES/MASTOIDS: Clear VASCULAR SYSTEM: Skull base flow voids intact. OTHER FINDINGS: None. IMPRESSION: No evidence of acute infarction. Dilated ventricles out of proportion of mildly dilated sulci suggestive of central atrophy or less likely mild hydrocephalus. Volume loss and moderate chronic microvascular white matter ischemic disease again noted.
[2017-04-17 14:13] LABS: ALB/GLOB RATIO 0.6 (1.1-1.8); BILIRUBIN,TOTAL 0.3 mg/dL (0.2-1.3); CALCIUM 9.6 mg/dL (8.4-10.5); MAGNESIUM 2.1 mg/dL (1.7-2.2); PHOSPHOROUS 5.6 mg/dL (2.5-4.5); TOTAL PROTEIN 6.5 g/dL (5.8-8.3)
--- NOTE | 2017-04-17 17:11 | PN ---
DATE: 04/17/2017 REASON FOR CONSULTATION AND FOLLOWUP: End-stage renal disease, on dialysis, nonhealing ulcer, status post above-knee amputation to the left leg, altered mental status. PHYSICAL EXAMINATION VITAL SIGNS: Temperature afebrile, heart rate is 86, and blood pressure 146/61. HEENT: PERRLA. Extraocular muscles intact. NECK: Supple. No carotid bruits or thyromegaly. CHEST: Clear to auscultation. HEART: S1 and S2 regular. ABDOMEN: Soft. EXTREMITIES: Clubbing and cyanosis negative. LABORATORY DATA: Blood workup as follows: WBC 17, hemoglobin 8.5, hematocrit 26.5, and platelet count 165. Chemistry shows sodium 140, potassium 3.9, chloride 102, CO2 18, anion gap of 13, BUN 16, and creatinine 3.9. IMPRESSION: Severe coronary artery disease, status post [id number], altered mental status, dementia, end-stage renal disease, hypertension, possibly metabolic encephalopathy, chronic obstructive pulmonary disease, hypertension, and hyperlipidemia. RECOMMENDATION: Continue dialysis. Continue antibiotic. The patient condition is critical. Long--term prognosis is guarded. CVS status is stable. We will follow with you. Thank you ____ for providing us the opportunity in taking care of the patient. Discharge planning given. Ulysses Flaherty MD
--- NOTE | 2017-04-17 18:21 | PN ---
DATE: 04/17/2017 SUBJECTIVE: The patient is seen in bed, in no acute distress. OBJECTIVE: VITAL SIGNS: Temperature is 99, blood pressure is 140/60, and respiratory rate of 20. HEENT: Unremarkable. NECK: Supple. LUNGS: Have decreased breath sounds. HEART: Normal S1 and S2. ABDOMEN: Soft and nontender. LABORATORY DATA: Reveals a white count of 17,500, hemoglobin of 8, and platelets of 165. BUN of 16 and creatinine of 3.9. Procalcitonin is 4.2. Microbiology reveals noted. ASSESSMENT AND PLAN: A 76-year-old with bilateral gangrenous ulcers, status post debridement, status post left [id number] amputation postprocedure day #6 with the patient had developed leukocytosis, tachycardia, new infiltrate with sepsis, and healthcare-associated pneumonia, on vancomycin and meropenem. Awaiting for final culture results. The patient's mental status is slightly improved today. Overall prognosis quite poor. Ibrahima Lara MD
--- NOTE | 2017-04-17 18:47 | CP.PCM.PN ---
Subjective - Date & Time of Evaluation Date of Evaluation: 04/17/17 Time of Evaluation: 12:00 - Subjective Subjective: 76 yo M w/ pmh of htn, dm, renal masses, progressive dementia, PAD, and ESRD on HD, admitted with b/l heel ulcerations, now s/p L AKA; Patient pulled out NG tube overnight; reportedly more alert; due for swallow eval; patient otherwise making incoherent sounds when questioned; Objective - Vital Signs/Intake and Output Vital Signs (last 24 hours): Temp Pulse Resp BP Pulse Ox 98.6 F 61 18 146/61 100 04/17/17 07:27 04/17/17 07:27 04/17/17 07:27 04/17/17 07:27 04/17/17 07:27 Intake and Output: 04/17/17 04/17/17 06:59 18:59 Intake Total 0 Balance 0 - Medications Medications: Current Medications Acetaminophen (Tylenol 325mg Tab) 650 mg PO Q6H PRN PRN Reason: Pain, Mild (1-3) Acetaminophen (Tylenol 325 Mg Supp) 325 mg RC Q4H PRN PRN Reason: Fever >100.4 F Last Admin: 04/15/17 07:40 Dose: 325 mg Albuterol/Ipratropium (Duoneb 3 Mg/0.5 Mg (3 Ml) Ud) 3 ml IH [id number] [facility] Last Admin: 04/17/17 13:19 Dose: Not Given Amlodipine Besylate (Norvasc) 10 mg PO DAILY [facility] Last Admin: 04/17/17 10:29 Dose: Not Given Aspirin (Ecotrin) 81 mg PO DAILY [facility] Last Admin: 04/17/17 10:29 Dose: Not Given Carvedilol (Coreg) 6.25 mg PO BID [facility] Last Admin: 04/14/17 09:35 Dose: Not Given Donepezil HCl (Aricept) 10 mg PO HS [facility] Last Admin: 04/13/17 22:34 Dose: Not Given Heparin Sodium (Porcine) (Heparin) 5,000 units SC Q12 [facility] PRN Reason: Protocol Last Admin: 04/17/17 10:25 Dose: 5,000 units Hydralazine HCl (Apresoline) 100 mg PO Q8 [facility] Last Admin: 04/13/17 13:37 Dose: Not Given Hydralazine HCl (Apresoline) 10 mg IVP Q6 PRN PRN Reason: Other Dextrose (Dextrose 10% In Water) 500 mls @ 20 mls/hr IV .Q24H [facility] Last Admin: 04/17/17 06:37 Dose: 20 mls/hr Meropenem 250 mg/ Sodium (Chloride) 100 mls @ 100 mls/hr IVPB Q12H [facility] PRN Reason: Protocol Stop: 04/29/17 10:01 Last Admin: 04/17/17 10:29 Dose: 100 mls/hr Insulin Human Regular (Humulin R Med) 0 units SC ACHS [facility] PRN Reason: Protocol Last Admin: 04/17/17 18:44 Dose: Not Given Lactic Acid (Lac-Hydrin 12% Cream (140 G)) 0 ea TOP BID [facility] Last Admin: 04/17/17 18:45 Dose: Not Given Lactulose (Enulose) 20 gm NG BID [facility] Last Admin: 04/17/17 18:44 Dose: Not Given Levalbuterol HCl (Xopenex) 0.63 mg IH [id number] PRN PRN Reason: Shortness of Breath Last Admin: 04/16/17 13:56 Dose: 0.63 mg Valsartan (Diovan) 320 mg PO DAILY [facility] Last Admin: 04/17/17 10:29 Dose: Not Given - Labs Labs: 04/17/17 13:05 04/17/17 13:05 PT 14.0 SECONDS (9.4-12.5) H 04/11/17 06:43 INR 1.27 (0.93-1.08) H 04/11/17 06:43 APTT 35.9 Seconds (25.1-36.5) 04/10/17 10:23 - Constitutional Appears: Non-toxic, No Acute Distress - Eye Exam Eye Exam: absent: Scleral icterus - ENT Exam ENT Exam: Mucous Membranes Moist - Respiratory Exam Respiratory Exam: Clear to Ausculation Bilateral. absent: Respiratory Distress - Cardiovascular Exam Cardiovascular Exam: RRR, +S1, +S2 - GI/Abdominal Exam GI & Abdominal Exam: Soft. absent: Distended, Tenderness - Extremities Exam Additional comments: no leg edema; - Neurological Exam Neurological Exam: Alert, Awake Additional comments: Responding to verbal stimuli but incoherently; - Psychiatric Exam Psychiatric exam: absent: Agitated - Skin Skin Exam: Warm. absent: Cyanosis Assessment and Plan (1) Delirium Assessment & Plan: Toxic metabolic encephalopathy in the setting of sepsis, possible effect of anesthesia; mental status slowly improving; avoiding hypotension on HD; Status: Acute (2) ESRD (end stage renal disease) Assessment & Plan: Stable electrolyte and volume status; dialyzing today per routine with UF goal 1L net (goal according to decreased intake); Status: Chronic (3) Sepsis Assessment & Plan: On vanco and meropenem (dosed for HD); should re-dose vanco after HD; Status: Acute (4) Anemia in ESRD (end-stage renal disease) Assessment & Plan: Hgb stable since yesterday but below goal; continue aranesp 150 mcg weekly; Status: Acute (5) Chronic kidney disease-mineral and bone disorder Assessment & Plan: High/normal Ca; continue sensipar 30 mg daily once able to take PO intake; continue sevelamer 1 tab w/ meals; Status: Acute (6) Hypertensive CKD, ESRD on dialysis Assessment & Plan: BP control fluctuating; not able to take PO meds currently; on prn hydralazine ( if SBP > 170), continue; UF on HD will help; Status: Acute
[2017-04-18] MEDS: Albuterol-Ipratrop 3 mg / 0.5 (3 ml) UD IH SCH ×4 (01:30→21:22)
--- NOTE | 2017-04-18 04:08 | PN ---
PULMONARY PROGRESS NOTE DATE: 04/17/2017 REFERRING PHYSICIAN: Barber Aguirre MD SUBJECTIVE: He is lying in the bed, little more awake than yesterday. He had a dialysis done today. He still have some cough, not much sputum production. No hemoptysis and no emesis. No hematuria. No diarrhea reported. Left stump has a dressing. OBJECTIVE/PHYSICAL EXAMINATION GENERAL: In no acute distress. VITAL SIGNS: Temperature is 98, heart rate is 61, respiratory rate is 18, blood pressure is 146/61 and pulse oximetry is 100% on nasal cannula. HEENT: Moist mucous membranes. Crowded airway. Mallampati score is IV. NECK: Supple. No JVD. LUNGS: Have a fair airflow with few rhonchi. HEART: S1 and S2. ABDOMEN: Soft and nontender. No organomegaly. EXTREMITIES: Not much edema of the right leg. Left stump has covered with dressing. NEUROLOGIC: More awake and alert than yesterday, did follows simple command. MEDICATIONS: He is on hydralazine q. 8 hours, which is on hold after dialysis, Aricept 10 mg at bedtime, Coreg 6.25 mg twice a day, Diovan 320 mg daily, DuoNeb q. 6 hours, Ecotrin 81 mg daily, heparin 5000 units subq q.12 hours, insulin coverage, meropenem 1 g q. 12 hours, Tylenol p.r.n basis and Xopenex inhaled q. 6 hours. LABORATORY DATA: Shows hemoglobin of 8.5, hematocrit of 26.4, WBC of 15.3 and platelets of 180. ABG showed pH of 7.45, pCO2 of 40, and O2 of 118, this is on nasal cannula oxygen. Sodium of 137, potassium of 4.0, chloride of 101, bicarbonate of 27, BUN of 40, creatinine of 7.0, glucose of 96, calcium of 9.6, phosphorus of 5.6 and magnesium of 2.1. AST of 47, ALT of 23, alkaline phosphatase is 131, and albumin is 2.5. DIAGNOSTIC DATA: Has MRI of the brain done today, which shows no evidence of acute infection, bilateral ventricle portion of mildly dilated sulci suggested of central atrophy or less likely mild hydrocephalus, volume loss and moderate chronic microvascular white matter ischemic disease again noted. IMPRESSION AND PLAN: Altered mental status, sepsis, being treated for health-care associated pneumonia, renal failure, dialysis dependent, history of hypertension, peripheral vascular disease status post left [id number] amputation secondary to severe non-healing ulcer, and hyperlipidemia. Case discussed with nursing staff. Pulmonary point of view, keep head 45 degrees, bronchodilators, antibiotics, and aspiration precaution, Neurontin has been discontinued. Repeat swallow study tomorrow, if still severe dysphagia, may need to place nasogastric tube for feeding. Follow up labs in the morning. Thank you and we will follow with you. Ulysses Garza MD
[2017-04-18 07:32] LABS: HEMATOCRIT 25.8 % (42.0-52.0); MEAN CELL VOLUME 87.8 fl (80.0-105.0); MEAN CORPUSCULAR HEMOGLOBIN 27.6 pg (25.0-35.0); MEAN CORPUSCULAR HGB CONC 31.4 g/dl (31.0-37.0); MEAN PLATELET VOLUME 10.8 fl (7.0-11.0); RED CELL DISTRIBUTION WIDTH 17.1 % (11.5-14.5); WHITE BLOOD COUNT 13.4 10^3/ul (4.5-11.0)
[2017-04-18] MEDS: Insulin Reg-MEDIUM-Coverage SC SCH ×4 (08:30→22:33)
--- NOTE | 2017-04-18 11:11 | CP.PCM.PN ---
<Carmel Perez - Last Filed: 04/18/17 13:40> Subjective - Date & Time of Evaluation Date of Evaluation: 04/18/17 Time of Evaluation: 10:55 - Subjective Subjective: Nephrology progress note for Dr Garcia's service. Patient appears more alert today, but minimally verbal, with waxing and waning mentation. Patient makes incoherent sounds. Unable to obtain detail ROS due to mentation. Speech and swallow attempted to reevaluate patient, however as per the therapist , patient is unable to swallow the food. Patient might benefit from continuous training and possible peg tube if he fails therapy. Objective - Vital Signs/Intake and Output Vital Signs (last 24 hours): Temp Pulse Resp BP Pulse Ox 98.6 F 66 18 138/64 97 04/18/17 07:30 04/18/17 07:30 04/18/17 07:30 04/18/17 07:30 04/18/17 07:30 - Medications Medications: Current Medications Acetaminophen (Tylenol 325mg Tab) 650 mg PO Q6H PRN PRN Reason: Pain, Mild (1-3) Acetaminophen (Tylenol 325 Mg Supp) 325 mg RC Q4H PRN PRN Reason: Fever >100.4 F Last Admin: 04/15/17 07:40 Dose: 325 mg Albuterol/Ipratropium (Duoneb 3 Mg/0.5 Mg (3 Ml) Ud) 3 ml IH [id number] [facility] Last Admin: 04/18/17 07:28 Dose: 3 ml Amlodipine Besylate (Norvasc) 10 mg PO DAILY [facility] Last Admin: 04/18/17 09:56 Dose: Not Given Aspirin (Ecotrin) 81 mg PO DAILY [facility] Last Admin: 04/18/17 09:56 Dose: Not Given Carvedilol (Coreg) 6.25 mg PO BID [facility] Last Admin: 04/14/17 09:35 Dose: Not Given Cinacalcet (Sensipar) 30 mg PO DAILY [facility] Donepezil HCl (Aricept) 10 mg PO HS [facility] Last Admin: 04/13/17 22:34 Dose: Not Given Heparin Sodium (Porcine) (Heparin) 5,000 units SC Q12 [facility] PRN Reason: Protocol Last Admin: 04/17/17 22:55 Dose: 5,000 units Hydralazine HCl (Apresoline) 100 mg PO Q8 [facility] Last Admin: 04/13/17 13:37 Dose: Not Given Hydralazine HCl (Apresoline) 10 mg IVP Q6 PRN PRN Reason: Other Dextrose (Dextrose 10% In Water) 500 mls @ 20 mls/hr IV .Q24H [facility] Last Admin: 04/17/17 06:37 Dose: 20 mls/hr Meropenem 250 mg/ Sodium (Chloride) 100 mls @ 100 mls/hr IVPB Q12H [facility] PRN Reason: Protocol Stop: 04/29/17 10:01 Last Admin: 04/17/17 22:53 Dose: 100 mls/hr Insulin Human Regular (Humulin R Med) 0 units SC ACHS [facility] PRN Reason: Protocol Last Admin: 04/18/17 08:30 Dose: Not Given Lactic Acid (Lac-Hydrin 12% Cream (140 G)) 0 ea TOP BID [facility] Last Admin: 04/17/17 18:45 Dose: Not Given Lactulose (Enulose) 20 gm NG BID [facility] Last Admin: 04/18/17 09:56 Dose: Not Given Levalbuterol HCl (Xopenex) 0.63 mg IH [id number] PRN PRN Reason: Shortness of Breath Last Admin: 04/16/17 13:56 Dose: 0.63 mg Valsartan (Diovan) 320 mg PO DAILY [facility] Last Admin: 04/18/17 09:56 Dose: Not Given - Labs Labs: 04/18/17 06:45 04/17/17 13:05 PT 14.0 SECONDS (9.4-12.5) H 04/11/17 06:43 INR 1.27 (0.93-1.08) H 04/11/17 06:43 APTT 35.9 Seconds (25.1-36.5) 04/10/17 10:23 - Constitutional Appears: No Acute Distress, Confused, Cachectic, Chronically Ill - Head Exam Head Exam: ATRAUMATIC, NORMAL INSPECTION, NORMOCEPHALIC - Eye Exam Eye Exam: Normal appearance - ENT Exam ENT Exam: Mucous Membranes Dry - Neck Exam Neck Exam: Normal Inspection - Respiratory Exam Respiratory Exam: Clear to Ausculation Bilateral, NORMAL BREATHING PATTERN. absent: Rales, Rhonchi, Wheezes, Respiratory Distress, Stridor - Cardiovascular Exam Cardiovascular Exam: REGULAR RHYTHM, RRR, +S1, +S2. absent: Murmur - GI/Abdominal Exam GI & Abdominal Exam: Soft, Normal Bowel Sounds. absent: Distended, Firm, Guarding, Rigid, Tenderness - Extremities Exam Extremities Exam: absent: Pedal Edema Additional comments: +Left AKA. - Neurological Exam Neurological Exam: Awake Additional comments: Awake, but confused, not following commands, making incoherent sounds. - Psychiatric Exam Psychiatric exam: Flat Affect - Skin Skin Exam: Dry, Normal Color, Warm Assessment and Plan (1) Sepsis Assessment & Plan: Likely due to HAP. Currently afebrile, and leukocystosis is trending down. Blood cultures with so far no growth. On Merrem, had vanco, last dose was on 04/15, Will follow up with ID for possibility changing antibiotics so that patient can get antibiotic with dialysis. Status: Acute (2) Altered mental state Assessment & Plan: Patient alert, but still with waxing and waning mentation. AMS might be secondary to metabolic encephalopathy due to sepsis, surgery ( anesthesia) superimposed with worsening in dementia. Patient failed repeat swallow eval. Question for NGT feeding and possibility of peg tube feeding. Repeat MRI with o acute ischemic changes, + volume loss, and chronic microvascular changes. Status: Acute (3) Anemia in ESRD (end-stage renal disease) Assessment & Plan: HGB continue to trend slowly, with positive FOBT. On aracept. GI following, discussed with [facility] [employer], to speak to Dr Huber for possibility of EGD. Will continue to monitor hgb. Status: Acute (4) CVA (cerebral vascular accident) Assessment & Plan: On asa. Status: Acute (5) HTN (hypertension) Assessment & Plan: BP currently stable. po on hold due to mentation. Will continue with hydralazine ivp prn. Status: Acute (6) ESRD (end stage renal disease) on dialysis Assessment & Plan: S/P HD yesterday. No new labs today, phos was high yesterday due to lack of po intake. Unable to get sensipar. Will repeat labs tomorrow. Status: Chronic (7) Renal mass Status: Chronic <Vincent Garcia - Last Filed: 04/18/17 19:12> Objective - Vital Signs/Intake and Output Vital Signs (last 24 hours): Temp Pulse Resp BP Pulse Ox 98.8 F 69 20 166/78 H 100 04/18/17 17:07 04/18/17 17:07 04/18/17 17:07 04/18/17 17:07 04/18/17 17:07 - Medications Medications: Current Medications Acetaminophen (Tylenol 325mg Tab) 650 mg PO Q6H PRN PRN Reason: Pain, Mild (1-3) Acetaminophen (Tylenol 325 Mg Supp) 325 mg RC Q4H PRN PRN Reason: Fever >100.4 F Last Admin: 04/15/17 07:40 Dose: 325 mg Albuterol/Ipratropium (Duoneb 3 Mg/0.5 Mg (3 Ml) Ud) 3 ml IH [id number] [facility] Last Admin: 04/18/17 13:17 Dose: 3 ml Amlodipine Besylate (Norvasc) 10 mg PO DAILY [facility] Last Admin: 04/18/17 09:56 Dose: Not Given Aspirin (Ecotrin) 81 mg PO DAILY [facility] Last Admin: 04/18/17 09:56 Dose: Not Given Carvedilol (Coreg) 6.25 mg PO BID [facility] Last Admin: 04/14/17 09:35 Dose: Not Given Cinacalcet (Sensipar) 30 mg PO DAILY [facility] Last Admin: 04/18/17 11:19 Dose: Not Given Donepezil HCl (Aricept) 10 mg PO HS [facility] Last Admin: 04/13/17 22:34 Dose: Not Given Heparin Sodium (Porcine) (Heparin) 5,000 units SC Q12 [facility] PRN Reason: Protocol Last Admin: 04/18/17 11:00 Dose: 5,000 units Hydralazine HCl (Apresoline) 100 mg PO Q8 [facility] Last Admin: 04/13/17 13:37 Dose: Not Given Hydralazine HCl (Apresoline) 10 mg IVP Q6 PRN PRN Reason: Other Dextrose (Dextrose 10% In Water) 500 mls @ 20 mls/hr IV .Q24H [facility] Last Admin: 04/18/17 11:19 Dose: 20 mls/hr Meropenem 250 mg/ Sodium (Chloride) 100 mls @ 100 mls/hr IVPB Q12H [facility] PRN Reason: Protocol Stop: 04/29/17 10:01 Last Admin: 04/18/17 10:59 Dose: 100 mls/hr Insulin Human Regular (Humulin R Med) 0 units SC ACHS [facility] PRN Reason: Protocol Last Admin: 04/18/17 15:56 Dose: Not Given Lactic Acid (Lac-Hydrin 12% Cream (140 G)) 0 ea TOP BID [facility] Last Admin: 04/18/17 17:41 Dose: Not Given Lactulose (Enulose) 20 gm NG BID [facility] Last Admin: 04/18/17 17:41 Dose: Not Given Levalbuterol HCl (Xopenex) 0.63 mg IH [id number] PRN PRN Reason: Shortness of Breath Last Admin: 04/16/17 13:56 Dose: 0.63 mg Valsartan (Diovan) 320 mg PO DAILY [facility] Last Admin: 04/18/17 09:56 Dose: Not Given - Labs Labs: 04/18/17 06:45 04/17/17 13:05 PT 14.0 SECONDS (9.4-12.5) H 04/11/17 06:43 INR 1.27 (0.93-1.08) H 04/11/17 06:43 APTT 35.9 Seconds (25.1-36.5) 04/10/17 10:23 Assessment and Plan (1) Delirium Status: Acute (2) ESRD (end stage renal disease) Status: Chronic (3) Sepsis Status: Acute (4) Anemia in ESRD (end-stage renal disease) Status: Acute (5) Chronic kidney disease-mineral and bone disorder Status: Acute (6) Hypertensive CKD, ESRD on dialysis Status: Acute Attending/Attestation - Attestation I have personally seen and examined this patient.: Yes I have fully participated in the care of the patient.: Yes I have reviewed all pertinent clinical information, including history, physical exam and plan: Yes Notes (Text): Patient seen and examined; I agree with the resident's note as above with the following edits/additions: Patient admitted for b/l heel infections, now s/p L AKA; hospital course complicated by delirium with marked lethargy; Patient's mental status improved since 2 days ago but still far from baseline; not verbalizing; NG tube replaced today; htn with elevated BP this evening; will restart BP meds with valsartan and amlodipine; ESRD with stable volume and electrolyte status; next HD for tomorrow per routine ; will again aim for low UF given low intake; Sepsis with heel infections and HCAP; on vanco and meropenem (dosed for HD); last vanco dose 3 days ago but random level elevated; should wait until after next HD to redose; Anemia of ESRD and possible GI losses; will continue aranesp 125 mcg weekly; 04/18/17 19:06
[2017-04-18] MEDS: Ammonium Lactate 12% Cream (140 g) TOP SCH ×2 (11:19→17:41)
--- NOTE | 2017-04-18 12:18 | PN ---
DATE: 04/17/2017 SUBJECTIVE: The patient seems more alert and awake. He opens his eyes to respond. He moves his upper extremities and seems comfortable in no distress, however, he is still not able to swallow due to change in mental status. PHYSICAL EXAMINATION: VITAL SIGNS: As follows; temperature is 98.6, heart rate is 61, blood pressure 146/61, respirations 18 and saturation 100%. HEAD AND NECK: Normal. No JVD. No thyromegaly. CHEST: Clear. CARDIAC: First sound and second sound normal. ABDOMEN: Soft and nontender. EXTREMITIES: No edema. NEUROLOGIC: His mental status is improving. He is more awake. He moves extremities, otherwise seems no deficits. LABORATORY DATA: White count , hemoglobin 8.5, hematocrit 26.4, and platelets is 180. Chemistry, sodium 137, potassium 4, chloride 101, bicarbonate 27, BUN 40, creatinine 7, phosphorus 5.6, and magnesium 2.1. Bilirubin, AST and ALT is normal, alkaline phosphatase 121. His albumin is low at 2.5 and globulin is 4. IMPRESSION AND PLAN: 1. Acute change in mental status, toxic metabolic encephalopathy improving slowly, still unable to eat, concerned about his nutritional status. The patient took off his Dobhoff feeding tube from his nasogastric area and at this time, we will do a swallow evaluation in the morning to start feeding the patient. 2. Status post left above knee amputation seems stable. Continue current antibiotic and local wound care. 3. Chronic hepatitis B. Chronic renal failure on hemodialysis. Continue hemodialysis. 4. Hypertension stable, currently on hydralazine p.r.n. We will resume all his blood pressure medications as needed. 5. Continue gastrointestinal and deep vein thrombosis prophylaxis. We will follow up clinically. Awaiting on swallow evaluation to starting feeding and probably once this is done, we will discharge him to be continue IV antibiotic meropenem 250 mg q.12 hours and he is getting vancomycin during dialysis. Continue current therapy. Barber Aguirre MD
--- NOTE | 2017-04-18 12:44 | CP.PCM.PN ---
Subjective - Date & Time of Evaluation Date of Evaluation: 04/18/17 Time of Evaluation: 08:10 - Subjective Subjective: Patient seen and examine. Patient for EEG today. Patient with dressing clean dry intact. Objective - Vital Signs/Intake and Output Vital Signs (last 24 hours): Temp Pulse Resp BP Pulse Ox 98.6 F 66 18 138/64 97 04/18/17 07:30 04/18/17 07:30 04/18/17 07:30 04/18/17 07:30 04/18/17 07:30 - Medications Medications: Current Medications Acetaminophen (Tylenol 325mg Tab) 650 mg PO Q6H PRN PRN Reason: Pain, Mild (1-3) Acetaminophen (Tylenol 325 Mg Supp) 325 mg RC Q4H PRN PRN Reason: Fever >100.4 F Last Admin: 04/15/17 07:40 Dose: 325 mg Albuterol/Ipratropium (Duoneb 3 Mg/0.5 Mg (3 Ml) Ud) 3 ml IH [id number] [facility] Last Admin: 04/18/17 07:28 Dose: 3 ml Amlodipine Besylate (Norvasc) 10 mg PO DAILY [facility] Last Admin: 04/18/17 09:56 Dose: Not Given Aspirin (Ecotrin) 81 mg PO DAILY [facility] Last Admin: 04/18/17 09:56 Dose: Not Given Carvedilol (Coreg) 6.25 mg PO BID [facility] Last Admin: 04/14/17 09:35 Dose: Not Given Cinacalcet (Sensipar) 30 mg PO DAILY [facility] Last Admin: 04/18/17 11:19 Dose: Not Given Donepezil HCl (Aricept) 10 mg PO HS [facility] Last Admin: 04/13/17 22:34 Dose: Not Given Heparin Sodium (Porcine) (Heparin) 5,000 units SC Q12 [facility] PRN Reason: Protocol Last Admin: 04/18/17 11:00 Dose: 5,000 units Hydralazine HCl (Apresoline) 100 mg PO Q8 [facility] Last Admin: 04/13/17 13:37 Dose: Not Given Hydralazine HCl (Apresoline) 10 mg IVP Q6 PRN PRN Reason: Other Dextrose (Dextrose 10% In Water) 500 mls @ 20 mls/hr IV .Q24H [facility] Last Admin: 04/18/17 11:19 Dose: 20 mls/hr Meropenem 250 mg/ Sodium (Chloride) 100 mls @ 100 mls/hr IVPB Q12H [facility] PRN Reason: Protocol Stop: 04/29/17 10:01 Last Admin: 04/18/17 10:59 Dose: 100 mls/hr Insulin Human Regular (Humulin R Med) 0 units SC ACHS [facility] PRN Reason: Protocol Last Admin: 04/18/17 12:22 Dose: Not Given Lactic Acid (Lac-Hydrin 12% Cream (140 G)) 0 ea TOP BID [facility] Last Admin: 04/18/17 11:19 Dose: Not Given Lactulose (Enulose) 20 gm NG BID [facility] Last Admin: 04/18/17 09:56 Dose: Not Given Levalbuterol HCl (Xopenex) 0.63 mg IH [id number] PRN PRN Reason: Shortness of Breath Last Admin: 04/16/17 13:56 Dose: 0.63 mg Valsartan (Diovan) 320 mg PO DAILY [facility] Last Admin: 04/18/17 09:56 Dose: Not Given - Labs Labs: 04/18/17 06:45 04/17/17 13:05 PT 14.0 SECONDS (9.4-12.5) H 04/11/17 06:43 INR 1.27 (0.93-1.08) H 04/11/17 06:43 APTT 35.9 Seconds (25.1-36.5) 04/10/17 10:23 - Constitutional Appears: No Acute Distress - Head Exam Head Exam: ATRAUMATIC, NORMAL INSPECTION, NORMOCEPHALIC - Eye Exam Eye Exam: EOMI, PERRL Pupil Exam: PERRL - ENT Exam ENT Exam: Mucous Membranes Moist - Neck Exam Neck Exam: Full ROM - Respiratory Exam Respiratory Exam: Clear to Ausculation Bilateral, NORMAL BREATHING PATTERN. absent: Rhonchi, Wheezes - Cardiovascular Exam Cardiovascular Exam: REGULAR RHYTHM, +S1, +S2 - Extremities Exam Additional comments: Contracted. L AKA stump. Incision c/d/i. TTP - Neurological Exam Neurological Exam: Alert, Awake - Psychiatric Exam Psychiatric exam: Normal Affect, Normal Mood - Skin Skin Exam: Dry, Intact, Normal Color, Warm Assessment and Plan - Assessment and Plan (Free Text) Assessment: 76M s/p left above the knee amputation POD#7 Plan: - Swallow study, f/u results - Severe oropharyngeal dysphagia with high risk for aspiration. Rec NPO - Will plan place dobhoff tube - pain control PRN - c/w ABx - medical management per primary team - No further surgical intervention needed. - Plan to discuss with Dr. Joy surgical attending
--- NOTE | 2017-04-18 14:56 | RAD ---
HISTORY: dobhoff tube placement eval COMPARISON: 06/16/2016 FINDINGS: LUNGS: Study is centered to to the GE junction to evaluate tube placement The patchy left mid and lower lung zone opacities and left lung calcified granulomas similar-appearing. Lesser granulomatous changes right mid to upper lung -portions visualized appear similar PLEURA: No significant pleural effusion identified, no pneumothorax apparent. CARDIOVASCULAR: Normal. OSSEOUS STRUCTURES: Thoraco lumbar spondylosis VISUALIZED UPPER ABDOMEN: Probable vascular calcifications OTHER FINDINGS: dobhoff tube placement tip in stomach IMPRESSION: No interval change in the granulomatous changes with the patchy coalescent the opacities infiltrates in the left lung. Dobhoff tube placement tip in stomach
--- NOTE | 2017-04-18 16:37 | CP.PCM.PN ---
<Chanel Schulz - Last Filed: 04/18/17 16:34> Subjective - Date & Time of Evaluation Date of Evaluation: 04/18/17 Time of Evaluation: 10:40 - Subjective Subjective: Seen and examined at the bedside earlier this morning, the chart was reviewed. Patient had swallowing evaluation, recommendation to maintain nothing by mouth, patient pocketing food. Patient is more awake and was verbally responsive today. Denies nausea, vomiting, or abdominal pain. No reports of overt GI bleed. Objective - Vital Signs/Intake and Output Vital Signs (last 24 hours): Temp Pulse Resp BP Pulse Ox 98.6 F 66 18 138/64 97 04/18/17 07:30 04/18/17 07:30 04/18/17 07:30 04/18/17 07:30 04/18/17 07:30 - Medications Medications: Current Medications Acetaminophen (Tylenol 325mg Tab) 650 mg PO Q6H PRN PRN Reason: Pain, Mild (1-3) Acetaminophen (Tylenol 325 Mg Supp) 325 mg RC Q4H PRN PRN Reason: Fever >100.4 F Last Admin: 04/15/17 07:40 Dose: 325 mg Albuterol/Ipratropium (Duoneb 3 Mg/0.5 Mg (3 Ml) Ud) 3 ml IH [id number] [facility] Last Admin: 04/18/17 13:17 Dose: 3 ml Amlodipine Besylate (Norvasc) 10 mg PO DAILY [facility] Last Admin: 04/18/17 09:56 Dose: Not Given Aspirin (Ecotrin) 81 mg PO DAILY [facility] Last Admin: 04/18/17 09:56 Dose: Not Given Carvedilol (Coreg) 6.25 mg PO BID [facility] Last Admin: 04/14/17 09:35 Dose: Not Given Cinacalcet (Sensipar) 30 mg PO DAILY [facility] Last Admin: 04/18/17 11:19 Dose: Not Given Donepezil HCl (Aricept) 10 mg PO HS [facility] Last Admin: 04/13/17 22:34 Dose: Not Given Heparin Sodium (Porcine) (Heparin) 5,000 units SC Q12 [facility] PRN Reason: Protocol Last Admin: 04/18/17 11:00 Dose: 5,000 units Hydralazine HCl (Apresoline) 100 mg PO Q8 [facility] Last Admin: 04/13/17 13:37 Dose: Not Given Hydralazine HCl (Apresoline) 10 mg IVP Q6 PRN PRN Reason: Other Dextrose (Dextrose 10% In Water) 500 mls @ 20 mls/hr IV .Q24H [facility] Last Admin: 04/18/17 11:19 Dose: 20 mls/hr Meropenem 250 mg/ Sodium (Chloride) 100 mls @ 100 mls/hr IVPB Q12H [facility] PRN Reason: Protocol Stop: 04/29/17 10:01 Last Admin: 04/18/17 10:59 Dose: 100 mls/hr Insulin Human Regular (Humulin R Med) 0 units SC ACHS [facility] PRN Reason: Protocol Last Admin: 04/18/17 15:56 Dose: Not Given Lactic Acid (Lac-Hydrin 12% Cream (140 G)) 0 ea TOP BID [facility] Last Admin: 04/18/17 11:19 Dose: Not Given Lactulose (Enulose) 20 gm NG BID [facility] Last Admin: 04/18/17 09:56 Dose: Not Given Levalbuterol HCl (Xopenex) 0.63 mg IH [id number] PRN PRN Reason: Shortness of Breath Last Admin: 04/16/17 13:56 Dose: 0.63 mg Valsartan (Diovan) 320 mg PO DAILY [facility] Last Admin: 04/18/17 09:56 Dose: Not Given - Labs Labs: 04/18/17 06:45 04/17/17 13:05 PT 14.0 SECONDS (9.4-12.5) H 04/11/17 06:43 INR 1.27 (0.93-1.08) H 04/11/17 06:43 APTT 35.9 Seconds (25.1-36.5) 04/10/17 10:23 - Constitutional Appears: No Acute Distress - Eye Exam Eye Exam: Normal appearance. absent: Scleral icterus - Respiratory Exam Respiratory Exam: NORMAL BREATHING PATTERN. absent: Respiratory Distress - Cardiovascular Exam Cardiovascular Exam: +S1, +S2 - GI/Abdominal Exam GI & Abdominal Exam: Soft, Normal Bowel Sounds. absent: Guarding, Tenderness, Rebound - Extremities Exam Extremities Exam: Calf Tenderness Additional comments: left AKA - Neurological Exam Neurological Exam: Awake - Skin Skin Exam: Dry, Warm Assessment and Plan - Assessment and Plan (Free Text) Assessment: Assessment: Oropharyngeal dysphagia Altered Mental Status, encephalopathy likely toxic metabolic Acute on chronic anemia, guaiac positive, rule out GI bleed, differentials consider is peptic ulcer disease angiodysplasia varices Chronic hepatitis B s/p Left AKA for Chronic left heel wound with MRI evidence of osteomyelitis patient with history of debridement and endovascular intervention Dementia History of grade 1 varices and gastric ulcers Diabetes mellitus End stage renal disease on dialysis History of renal cancer with partial nephrectomy Hypertension Plan: on IV antibiotics as per ID On lactulose Monitor H&H and transfuse as necessary on DVT prophylaxis Patient failed swallow evaluation, recommendation to reinsert NG tube. Speech therapist to follow up with patient to see if status improves otherwise patient may need PEG tube, will follow up closely. As per neuro, ID, surgery Seen and discussed with Dr. Huber. <Liss Huber V - Last Filed: 04/19/17 00:47> Objective - Vital Signs/Intake and Output Vital Signs (last 24 hours): Temp Pulse Resp BP Pulse Ox 98.8 F 69 20 163/63 H 100 04/18/17 17:07 04/18/17 17:07 04/18/17 17:07 04/18/17 22:08 04/18/17 17:07 Intake and Output: 04/18/17 04/19/17 18:59 06:59 Intake Total 0 Balance 0 - Medications Medications: Current Medications Acetaminophen (Tylenol 325mg Tab) 650 mg PO Q6H PRN PRN Reason: Pain, Mild (1-3) Acetaminophen (Tylenol 325 Mg Supp) 325 mg RC Q4H PRN PRN Reason: Fever >100.4 F Last Admin: 04/15/17 07:40 Dose: 325 mg Albuterol/Ipratropium (Duoneb 3 Mg/0.5 Mg (3 Ml) Ud) 3 ml IH [id number] [facility] Last Admin: 04/18/17 21:22 Dose: 3 ml Amlodipine Besylate (Norvasc) 10 mg PO DAILY [facility] Last Admin: 04/18/17 09:56 Dose: Not Given Aspirin (Ecotrin) 81 mg PO DAILY [facility] Last Admin: 04/18/17 09:56 Dose: Not Given Carvedilol (Coreg) 6.25 mg PO BID [facility] Last Admin: 04/14/17 09:35 Dose: Not Given Cinacalcet (Sensipar) 30 mg PO DAILY [facility] Last Admin: 04/18/17 11:19 Dose: Not Given Donepezil HCl (Aricept) 10 mg PO HS [facility] Last Admin: 04/13/17 22:34 Dose: Not Given Heparin Sodium (Porcine) (Heparin) 5,000 units SC Q12 [facility] PRN Reason: Protocol Last Admin: 04/18/17 22:08 Dose: 5,000 units Hydralazine HCl (Apresoline) 100 mg PO Q8 [facility] Last Admin: 04/13/17 13:37 Dose: Not Given Hydralazine HCl (Apresoline) 10 mg IVP Q6 PRN PRN Reason: Other Dextrose (Dextrose 10% In Water) 500 mls @ 20 mls/hr IV .Q24H [facility] Last Admin: 04/18/17 11:19 Dose: 20 mls/hr Meropenem 250 mg/ Sodium (Chloride) 100 mls @ 100 mls/hr IVPB Q12H [facility] PRN Reason: Protocol Stop: 04/29/17 10:01 Last Admin: 04/18/17 22:07 Dose: 100 mls/hr Insulin Human Regular (Humulin R Med) 0 units SC ACHS [facility] PRN Reason: Protocol Last Admin: 04/18/17 22:33 Dose: Not Given Lactic Acid (Lac-Hydrin 12% Cream (140 G)) 0 ea TOP BID [facility] Last Admin: 04/18/17 17:41 Dose: Not Given Lactulose (Enulose) 20 gm NG BID [facility] Last Admin: 04/18/17 17:41 Dose: Not Given Levalbuterol HCl (Xopenex) 0.63 mg IH [id number] PRN PRN Reason: Shortness of Breath Last Admin: 04/16/17 13:56 Dose: 0.63 mg Valsartan (Diovan) 320 mg PO DAILY [facility] Last Admin: 04/18/17 09:56 Dose: Not Given - Labs Labs: 04/18/17 06:45 04/17/17 13:05 PT 14.0 SECONDS (9.4-12.5) H 04/11/17 06:43 INR 1.27 (0.93-1.08) H 04/11/17 06:43 APTT 35.9 Seconds (25.1-36.5) 04/10/17 10:23 Attending/Attestation - Attestation I have personally seen and examined this patient.: Yes I have fully participated in the care of the patient.: Yes I have reviewed all pertinent clinical information, including history, physical exam and plan: Yes Notes (Text): This is an addendum to GI progress report dictated by Chanel Schulz APN.The patient was seen and examined earlier. Medical records, lab studies, imagings were reviewed. Last 24 hours events reviewed. Agreed with the above treatment plan as outlined in Chanel Schulz APN's notes the with the addition of the following Patient is now having NG tube feeding. 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 04/19/17 00:46
--- NOTE | 2017-04-18 20:44 | PN ---
PULMONARY PROGRESS NOTE DATE: 04/18/2017 REFERRING PHYSICIAN: Barber Aguirre MD SUBJECTIVE: The patient is lying in the bed, head at 45 degrees. He has a nasogastric tube. Cough is better. No nausea. No vomiting. No diarrhea. No leg pain or leg swelling. Left leg stump has a dressing. PHYSICAL EXAMINATION GENERAL: In no acute distress. VITAL SIGNS: Temperature 98, heart rate is 66, respiratory rate is 18, blood pressure 138/64, pulse ox 97% on 2 L nasal cannula. HEENT: Moist mucous membrane. Crowded airway. NECK: Supple. No JVD. LUNGS: Has a fair airflow with few rhonchi. HEART: S1 and S2. ABDOMEN: Soft, nontender, nondistended. EXTREMITIES: There is no edema on right leg. Left stump has a dressing. NEUROLOGICAL: Sleepy, arousable, not much verbal. MEDICATIONS: He is on hydralazine 100 mg q. 8 hours, Aricept 10 mg at bedtime, Coreg 6.25 mg twice a day, Diovan 320 mg daily, DuoNeb q. 6 hours, Ecotrin 81 mg daily, lactulose 20 g b.i.d., heparin 5000 units subcu q. 12 hours, insulin coverage, Merrem 250 mg q. 12 hours, Norvasc 10 mg daily, Sensipar is 30 mg daily, Tylenol on p.r.n. basis, Xopenex inhale q. 6 hours. LABORATORY DATA: Shows hemoglobin 8.1, hematocrit 25.8, WBC of 13.4 and platelets of 201. Blood sugar 93. Chest x-ray shows no interval changes in the granulomatous changes with patchy in the left lung. Dobhoff tube in the stomach. IMPRESSION AND PLAN: Resolving sepsis, being treated with healthcare-associated infection; renal failure, dialysis dependent; hypertension; peripheral vascular disease, status post left [id number] amputation; oropharyngeal dysphagia. He has a nasogastric tube, being treated for pneumonia. Pulmonary point of view, he is doing okay. Keep head at 45 degrees, bronchodilator, aspiration precaution. Agree with using nasogastric tube for feeding. Avoid sedatives. Speech therapy follow up for repeat speech evaluation. Thank you and we will follow with you. Ulysses Garza MD [facility] # [id number]
--- NOTE | 2017-04-18 21:53 | PN ---
DATE: 04/18/2017 LOCATION: The patient is in room number 563, bed 1. REASON FOR CONSULTATION: End-stage renal failure on dialysis, nonhealing ulcer, status post [id number] amputation to the left leg, and altered mental status. SUBJECTIVE: The patient lying flat in bed without any respiratory distress. He is more alert today. PHYSICAL EXAMINATION: VITAL SIGNS: Blood pressure 138/64, respirations 20, pulse 66, and temperature 98.6. HEENT: Head is normocephalic. Eyes; pupils are normal. Conjunctivae pale. NECK: JVP is low. Carotids are equal. THORAX: AP diameter normal. LUNGS: Clear. CARDIOVASCULAR: S1 and S2. ABDOMEN: Soft. No tenderness. No organomegaly. Bowel sounds normal. EXTREMITIES: No clubbing. No cyanosis. LABORATORY DATA: WBC 13.4, hemoglobin 8.1, hematocrit 25.8, and platelets 201. Sodium 137, potassium 4.0, BUN 40, creatinine 7.0, and sugar 102. Chest x-ray, no change in granulomata changes, with patchy coalescent opacities and infiltrates in the left lung. DIAGNOSES: Renal failure on dialysis, status post amputation left leg [id number], altered mental status, hypertension, metabolic encephalopathy, chronic obstructive pulmonary disease, hyperlipidemia, and sepsis. PLAN: The patient is on hydralazine 100 mg q.8 hours, carvedilol 6.25 b.i.d., Diovan 320 daily, aspirin 81 mg daily, heparin 5000 units subcutaneously q.12 hours, Merrem IV 250 mg q.12 hours, and amlodipine 10 mg daily. We will continue present therapy. We will follow with you. Ulysses Gama MD
[2017-04-19] MEDS: Albuterol-Ipratrop 3 mg / 0.5 (3 ml) UD IH SCH ×4 (02:31→20:57)
--- NOTE | 2017-04-19 02:47 | PN ---
DATE: 04/18/2017 SUBJECTIVE: The patient is in bed in no acute distress, nontoxic. PHYSICAL EXAMINATION: VITAL SIGNS: Temperature is 98, blood pressure is 120/70 and respiratory rate of 16. HEENT: Unremarkable. NECK: Supple. LUNGS: Decreased breath sounds. HEART: Normal S1 and S2. ABDOMEN: Soft and nontender. LABORATORY DATA: Reveals a white count of 13,000, hemoglobin of 8 and platelets are noted. BUN and creatinine is reviewed and stool for occult is positive. ASSESSMENT AND PLAN: This is a 76-year-old with bilateral gangrenous ulcers status post debridement, status post left above the knee amputation, post procedure day #7. The patient developed leukocytosis and tachycardia and new infiltrate with sepsis with healthcare associated pneumonia on vancomycin and meropenem and with some improvement. Review of the orders confirms the patient meropenem day #4 and will be reordered. Vancomycin use intermittently. Last creatinine down to 7.0. The patient with multiple medical issues. We will follow closely with you. Overall, prognosis is quite poor. The meropenem is also adjusted for renal disease. Ibrahima Lara MD
[2017-04-19] MEDS: Insulin Reg-MEDIUM-Coverage SC SCH ×4 (08:27→22:06)
--- NOTE | 2017-04-19 10:43 | CP.PCM.PN ---
Subjective - Date & Time of Evaluation Date of Evaluation: 04/19/17 Time of Evaluation: 07:30 - Subjective Subjective: [id number] GENERAL SURGERY PROGRESS NOTE Patient seen and examined at bedside. Patient left AKA wound dressing changed. Dobhoff tube in place. No acute events reported overnight. Objective - Vital Signs/Intake and Output Vital Signs (last 24 hours): Temp Pulse Resp BP Pulse Ox 97.6 F 64 18 175/71 H 97 04/19/17 07:30 04/19/17 07:30 04/19/17 07:30 04/19/17 10:21 04/19/17 07:30 Intake and Output: 04/19/17 04/19/17 06:59 18:59 Intake Total 0 Balance 0 - Medications Medications: Current Medications Acetaminophen (Tylenol 325mg Tab) 650 mg PO Q6H PRN PRN Reason: Pain, Mild (1-3) Acetaminophen (Tylenol 325 Mg Supp) 325 mg RC Q4H PRN PRN Reason: Fever >100.4 F Last Admin: 04/15/17 07:40 Dose: 325 mg Albuterol/Ipratropium (Duoneb 3 Mg/0.5 Mg (3 Ml) Ud) 3 ml IH [id number] [facility] Last Admin: 04/19/17 07:20 Dose: 3 ml Amlodipine Besylate (Norvasc) 10 mg PO DAILY [facility] Last Admin: 04/19/17 10:21 Dose: 10 mg Aspirin (Ecotrin) 81 mg PO DAILY [facility] Last Admin: 04/19/17 10:20 Dose: 81 mg Carvedilol (Coreg) 6.25 mg PO BID [facility] Last Admin: 04/14/17 09:35 Dose: Not Given Cinacalcet (Sensipar) 30 mg PO DAILY [facility] Last Admin: 04/19/17 10:21 Dose: 30 mg Donepezil HCl (Aricept) 10 mg PO HS [facility] Last Admin: 04/13/17 22:34 Dose: Not Given Heparin Sodium (Porcine) (Heparin) 5,000 units SC Q12 [facility] PRN Reason: Protocol Last Admin: 04/19/17 10:22 Dose: 5,000 units Hydralazine HCl (Apresoline) 100 mg PO Q8 [facility] Last Admin: 04/13/17 13:37 Dose: Not Given Hydralazine HCl (Apresoline) 10 mg IVP Q6 PRN PRN Reason: Other Dextrose (Dextrose 10% In Water) 500 mls @ 20 mls/hr IV .Q24H [facility] Last Admin: 04/18/17 11:19 Dose: 20 mls/hr Meropenem 250 mg/ Sodium (Chloride) 100 mls @ 100 mls/hr IVPB Q12H [facility] PRN Reason: Protocol Stop: 04/29/17 10:01 Last Admin: 04/19/17 10:23 Dose: 100 mls/hr Insulin Human Regular (Humulin R Med) 0 units SC ACHS [facility] PRN Reason: Protocol Last Admin: 04/19/17 08:27 Dose: Not Given Lactic Acid (Lac-Hydrin 12% Cream (140 G)) 0 ea TOP BID [facility] Last Admin: 04/18/17 17:41 Dose: Not Given Lactulose (Enulose) 20 gm NG BID [facility] Last Admin: 04/19/17 10:24 Dose: 20 gm Levalbuterol HCl (Xopenex) 0.63 mg IH [id number] PRN PRN Reason: Shortness of Breath Last Admin: 04/16/17 13:56 Dose: 0.63 mg Valsartan (Diovan) 320 mg PO DAILY [facility] Last Admin: 04/19/17 10:21 Dose: 320 mg - Labs Labs: 04/18/17 06:45 04/17/17 13:05 PT 14.0 SECONDS (9.4-12.5) H 04/11/17 06:43 INR 1.27 (0.93-1.08) H 04/11/17 06:43 APTT 35.9 Seconds (25.1-36.5) 04/10/17 10:23 - Constitutional Appears: No Acute Distress - Head Exam Head Exam: ATRAUMATIC, NORMAL INSPECTION, NORMOCEPHALIC - Eye Exam Eye Exam: EOMI, PERRL - ENT Exam Additional comments: dobhoff tube in place right nare - Respiratory Exam Respiratory Exam: Clear to Ausculation Bilateral, NORMAL BREATHING PATTERN - Cardiovascular Exam Cardiovascular Exam: REGULAR RHYTHM, +S1, +S2 - GI/Abdominal Exam GI & Abdominal Exam: Soft, Normal Bowel Sounds - Extremities Exam Extremities Exam: absent: Pedal Edema Additional comments: LEft AKA with fish mouth incision with sutures in place, dressing in place c/d/i - Neurological Exam Neurological Exam: Alert, Awake - Psychiatric Exam Psychiatric exam: Normal Affect, Normal Mood - Skin Skin Exam: Dry, Intact Assessment and Plan - Assessment and Plan (Free Text) Assessment: 76M s/p left above the knee amputation POD#8 Plan: - Swallow study showed severe oropharyngeal dysphagia with high risk for aspiration. Rec NPO - dobhoff tube placed - Potential for PEG placement, f/u GI recs - pain control PRN - c/w ABx - medical management per primary team - No further surgical intervention needed - Plan to discuss with Dr. Joy surgical attending
--- NOTE | 2017-04-19 11:30 | PN ---
DATE: 04/18/2017 SUBJECTIVE: Parris Cabral is more awake, more responding; however, swallow evaluation, he said has severe dysphagia, oropharyngeal swallowing problem, cannot be said for now. The patient's mental status improving, chronic dementia, but improving slowly. PHYSICAL EXAMINATION: VITAL SIGNS: On 04/18/2017, temperature 98.6, heart rate 66, blood pressure 138/64, respirations 18, saturation 97%. HEAD AND NECK: Normal. No JVD. No thyromegaly. CHEST: Clear. Poor inspiratory effort. CARDIAC: First sound and second sound normal. ABDOMEN: Soft and nontender. EXTREMITIES: No edema. He has left above-knee amputation. NEUROLOGIC: Mental status improving. The patient is more responding, more awake, but otherwise general weakness. LABORATORY DATA: On 04/18/2017, white count 13.4, hemoglobin 8.1, hematocrit 25.8, and platelets 201. Chemistry; blood sugar runs in the 100. Sodium 137, potassium 4, chloride 101, bicarbonate 27, BUN 40, creatinine 7. IMPRESSION AND PLAN: 1. Status post left above-knee amputations, doing better. Continue IV antibiotic, meropenem plus vancomycin on dialysis. Continue local wound care by Podiatry and surgical team. Acute change in mental status seems improving, probably toxic metabolic encephalopathy. Patient seems more awake; however, he has severe oropharyngeal dysphagia, probably underlying dementia and change in mental status make it worse to swallow. We will continue to observe. Hopefully he has improved, his mental status will make him more cooperative and able to swallow. At this time, we will follow recommendation for dysphagia. May be we will do Dobhoff tube again for feeding, and we will see how the patient do. 2. Chronic anemia, chronic renal failure, chronic hepatitis B, hypertension, hypercholesterolemia, chronic dementia, generalized weakness. Continue current therapy. Continue GI and DVT prophylaxis. Follow up with helper driver and GI team and continue current medications. Plan to reevaluate swallow evaluation in a day or two. Barber Aguirre MD
[2017-04-19 12:27] LABS: HEMATOCRIT 25.9 % (42.0-52.0); MEAN CELL VOLUME 86.9 fl (80.0-105.0); MEAN CORPUSCULAR HEMOGLOBIN 27.9 pg (25.0-35.0); MEAN PLATELET VOLUME 10.6 fl (7.0-11.0); RED CELL DISTRIBUTION WIDTH 17.4 % (11.5-14.5); WHITE BLOOD COUNT 14.4 10^3/ul (4.5-11.0)
[2017-04-19 12:36] LABS: CALCIUM 10.4 mg/dL (8.4-10.5); POTASSIUM 3.7 mmol/L (3.6-5.0)
[2017-04-19] MEDS: Ammonium Lactate 12% Cream (140 g) TOP SCH ×2 (14:28→18:31)
--- NOTE | 2017-04-19 14:50 | CP.PCM.PN ---
Subjective - Date & Time of Evaluation Date of Evaluation: 04/19/17 Time of Evaluation: 12:00 - Subjective Subjective: Patient still lethargic per nursing staff; failed swallow eval; Objective - Vital Signs/Intake and Output Vital Signs (last 24 hours): Temp Pulse Resp BP Pulse Ox 97.6 F 64 18 175/71 H 97 04/19/17 07:30 04/19/17 07:30 04/19/17 07:30 04/19/17 10:21 04/19/17 07:30 Intake and Output: 04/19/17 04/19/17 06:59 18:59 Intake Total 0 Balance 0 - Medications Medications: Current Medications Acetaminophen (Tylenol 325mg Tab) 650 mg PO Q6H PRN PRN Reason: Pain, Mild (1-3) Acetaminophen (Tylenol 325 Mg Supp) 325 mg RC Q4H PRN PRN Reason: Fever >100.4 F Last Admin: 04/15/17 07:40 Dose: 325 mg Albuterol/Ipratropium (Duoneb 3 Mg/0.5 Mg (3 Ml) Ud) 3 ml IH [id number] COUNTS [facility]CLUDE [facility] BEDS AT [facility] Last Admin: 04/19/17 13:36 Dose: Not Given Amlodipine Besylate (Norvasc) 10 mg PO DAILY [facility]S [facility] Last Admin: 04/19/17 10:21 Dose: 10 mg Aspirin (Ecotrin) 81 mg PO DAILY [facility] B[facility]S AT [facility] Last Admin: 04/19/17 10:20 Dose: 81 mg Carvedilol (Coreg) 6.25 mg PO BID [facility]S AT [facility] Last Admin: 04/14/17 09:35 Dose: Not Given Cinacalcet (Sensipar) 30 mg PO DAILY [facility] 234 B[facility]S AT [facility] Last Admin: 04/19/17 10:21 Dose: 30 mg Donepezil HCl (Aricept) 10 mg PO HS [facility]S [facility]CLUDE 234 BEDS AT [facility] Last Admin: 04/13/17 22:34 Dose: Not Given Heparin Sodium (Porcine) (Heparin) 5,000 units SC Q12 [facility] PRN Reason: Protocol Last Admin: 04/19/17 10:22 Dose: 5,000 units Hydralazine HCl (Apresoline) 100 mg PO Q8 [facility]S [facility]CLUDE 234 BEDS AT [facility] Last Admin: 04/13/17 13:37 Dose: Not Given Hydralazine HCl (Apresoline) 10 mg IVP Q6 PRN PRN Reason: Other Dextrose (Dextrose 10% In Water) 500 mls @ 20 mls/hr IV .Q24H COUNTS [facility]CLUDE 234 BEDS AT [facility] Last Admin: 04/19/17 11:00 Dose: 20 mls/hr Meropenem 250 mg/ Sodium (Chloride) 100 mls @ 100 mls/hr IVPB Q12H [facility] PRN Reason: Protocol Stop: 04/29/17 10:01 Last Admin: 04/19/17 10:23 Dose: 100 mls/hr Insulin Human Regular (Humulin R Med) 0 units SC ACHS [facility] PRN Reason: Protocol Last Admin: 04/19/17 12:23 Dose: Not Given Lactic Acid (Lac-Hydrin 12% Cream (140 G)) 0 ea TOP BID COUNTS [facility]CLUDE 234 BEDS AT [facility] Last Admin: 04/19/17 14:28 Dose: Not Given Lactulose (Enulose) 20 gm NG BID COUNTS [facility]CLUDE 234 BEDS AT [facility] Last Admin: 04/19/17 10:24 Dose: 20 gm Levalbuterol HCl (Xopenex) 0.63 mg IH [id number] PRN PRN Reason: Shortness of Breath Last Admin: 04/16/17 13:56 Dose: 0.63 mg Valsartan (Diovan) 320 mg PO DAILY COUNTS [facility]CLUDE 234 BEDS AT [facility] Last Admin: 04/19/17 10:21 Dose: 320 mg - Labs Labs: 04/19/17 08:29 04/19/17 08:28 PT 14.0 SECONDS (9.4-12.5) H 04/11/17 06:43 INR 1.27 (0.93-1.08) H 04/11/17 06:43 APTT 35.9 Seconds (25.1-36.5) 04/10/17 10:23 - Constitutional Appears: Non-toxic, No Acute Distress - Eye Exam Eye Exam: absent: Scleral icterus - ENT Exam ENT Exam: Mucous Membranes Moist - Respiratory Exam Respiratory Exam: Clear to Ausculation Bilateral. absent: Respiratory Distress Additional comments: shallow breaths; - Cardiovascular Exam Cardiovascular Exam: RRR, +S1, +S2 - GI/Abdominal Exam GI & Abdominal Exam: Soft. absent: Distended, Tenderness - Extremities Exam Additional comments: no leg edema; - Neurological Exam Neurological Exam: Awake Additional comments: minimally responding to verbal stimuli but tries to verbalize; - Skin Skin Exam: Warm. absent: Cyanosis Assessment and Plan (1) Delirium Assessment & Plan: Patient still very lethargic, failed swallow eval; being considered for PEG tube placement; Status: Acute (2) ESRD (end stage renal disease) Assessment & Plan: Stable volume and electrolyte status; HD today per routine with UF goal 1.5L net ; Status: Chronic (3) Sepsis Assessment & Plan: On meropenem, dosed for HD; ID to assess need to continue vanco (random level elevated yesterday); Status: Acute (4) Anemia in ESRD (end-stage renal disease) Assessment & Plan: Hgb well below goal; will continue aranesp weekly; Status: Acute (5) Chronic kidney disease-mineral and bone disorder Assessment & Plan: High corrected Ca; continue sensipar 30 mg daily; Status: Acute (6) Hypertensive CKD, ESRD on dialysis Assessment & Plan: BP elevated this morning; told nursing to give amlodipine and valsartan; UF on HD should help; Status: Acute
--- NOTE | 2017-04-19 15:23 | RAD ---
HISTORY: NG tube placement COMPARISON: 04/18/2017 at 8:52 p.m. FINDINGS: LUNGS: Granulomatous calcifications in both upper lobes. Patchy opacity in left perihilar and left base common nonspecific. No significant change from prior. PLEURA: No significant pleural effusion identified, no pneumothorax apparent. CARDIOVASCULAR: Normal heart size. Double off tube extends to left upper quadrant of abdomen. Right PICC catheter unchanged in position. OSSEOUS STRUCTURES: No significant abnormalities. VISUALIZED UPPER ABDOMEN: Normal. OTHER FINDINGS: None. IMPRESSION: Double off tube extends to left upper quadrant of abdomen. Multifocal left-sided pulmonary infiltrate. Granulomatous calcifications bilaterally.
--- NOTE | 2017-04-19 15:26 | RAD ---
HISTORY: ng tube placement COMPARISON: 04/18/2017 at 2:34 p.m. FINDINGS: LUNGS: Left perihilar and basilar opacity, nonspecific. Bilateral upper lobe granulomatous calcifications. PLEURA: No significant pleural effusion identified, no pneumothorax apparent. CARDIOVASCULAR: Normal heart size. Double off feeding tube tip in distal esophagus. Repositioning advised. Right PICC catheter noted, grossly unchanged. OSSEOUS STRUCTURES: No significant abnormalities. VISUALIZED UPPER ABDOMEN: Normal. OTHER FINDINGS: None. IMPRESSION: Top of feeding tube tip in distal esophagus. Left perihilar and basilar opacity. Bilateral granulomatous calcifications.
--- NOTE | 2017-04-19 16:28 | CP.PCM.PN ---
<Chanel Schulz - Last Filed: 04/19/17 16:27> Subjective - Date & Time of Evaluation Date of Evaluation: 04/19/17 Time of Evaluation: 10:05 - Subjective Subjective: S&E earlier today, chart reviewed, awake but flat affect. Dobhoff in place but reported to pull at tube a few attempts. Feedings in progress, no reports of residula. On restraints. Objective - Vital Signs/Intake and Output Vital Signs (last 24 hours): Temp Pulse Resp BP Pulse Ox 97.6 F 64 18 175/71 H 97 04/19/17 07:30 04/19/17 07:30 04/19/17 07:30 04/19/17 10:21 04/19/17 07:30 Intake and Output: 04/19/17 04/19/17 06:59 18:59 Intake Total 0 Balance 0 - Medications Medications: Current Medications Acetaminophen (Tylenol 325mg Tab) 650 mg PO Q6H PRN PRN Reason: Pain, Mild (1-3) Acetaminophen (Tylenol 325 Mg Supp) 325 mg RC Q4H PRN PRN Reason: Fever >100.4 F Last Admin: 04/15/17 07:40 Dose: 325 mg Albuterol/Ipratropium (Duoneb 3 Mg/0.5 Mg (3 Ml) Ud) 3 ml IH [id number] [facility] Last Admin: 04/19/17 13:36 Dose: Not Given Amlodipine Besylate (Norvasc) 10 mg PO DAILY [facility] Last Admin: 04/19/17 10:21 Dose: 10 mg Aspirin (Ecotrin) 81 mg PO DAILY [facility] Last Admin: 04/19/17 10:20 Dose: 81 mg Carvedilol (Coreg) 6.25 mg PO BID [facility] Last Admin: 04/14/17 09:35 Dose: Not Given Cinacalcet (Sensipar) 30 mg PO DAILY [facility] Last Admin: 04/19/17 10:21 Dose: 30 mg Donepezil HCl (Aricept) 10 mg PO HS [facility] Last Admin: 04/13/17 22:34 Dose: Not Given Heparin Sodium (Porcine) (Heparin) 5,000 units SC Q12 [facility] PRN Reason: Protocol Last Admin: 04/19/17 10:22 Dose: 5,000 units Hydralazine HCl (Apresoline) 100 mg PO Q8 [facility] Last Admin: 04/13/17 13:37 Dose: Not Given Hydralazine HCl (Apresoline) 10 mg IVP Q6 PRN PRN Reason: Other Dextrose (Dextrose 10% In Water) 500 mls @ 20 mls/hr IV .Q24H [facility] Last Admin: 04/19/17 11:00 Dose: 20 mls/hr Meropenem 250 mg/ Sodium (Chloride) 100 mls @ 100 mls/hr IVPB Q12H [facility] PRN Reason: Protocol Stop: 04/29/17 10:01 Last Admin: 04/19/17 10:23 Dose: 100 mls/hr Insulin Human Regular (Humulin R Med) 0 units SC ACHS [facility] PRN Reason: Protocol Last Admin: 04/19/17 12:23 Dose: Not Given Lactic Acid (Lac-Hydrin 12% Cream (140 G)) 0 ea TOP BID [facility] Last Admin: 04/19/17 14:28 Dose: Not Given Lactulose (Enulose) 20 gm NG BID [facility] Last Admin: 04/19/17 10:24 Dose: 20 gm Levalbuterol HCl (Xopenex) 0.63 mg IH [id number] PRN PRN Reason: Shortness of Breath Last Admin: 04/16/17 13:56 Dose: 0.63 mg Valsartan (Diovan) 320 mg PO DAILY [facility] Last Admin: 04/19/17 10:21 Dose: 320 mg - Labs Labs: 04/19/17 08:29 04/19/17 08:28 PT 14.0 SECONDS (9.4-12.5) H 04/11/17 06:43 INR 1.27 (0.93-1.08) H 04/11/17 06:43 APTT 35.9 Seconds (25.1-36.5) 04/10/17 10:23 - Constitutional Appears: No Acute Distress - Eye Exam Eye Exam: Normal appearance. absent: Scleral icterus - ENT Exam ENT Exam: Mucous Membranes Moist - Respiratory Exam Respiratory Exam: NORMAL BREATHING PATTERN. absent: Respiratory Distress - Cardiovascular Exam Cardiovascular Exam: +S1, +S2 - GI/Abdominal Exam GI & Abdominal Exam: Soft, Normal Bowel Sounds. absent: Guarding, Tenderness, Rebound - Extremities Exam Additional comments: left AKA - Neurological Exam Neurological Exam: Altered, Awake - Skin Skin Exam: Dry, Warm Assessment and Plan - Assessment and Plan (Free Text) Assessment: Assessment: Oropharyngeal dysphagia Altered Mental Status, encephalopathy likely toxic metabolic Acute on chronic anemia, guaiac positive, rule out GI bleed, differentials consider is peptic ulcer disease angiodysplasia varices Chronic hepatitis B s/p Left AKA for Chronic left heel wound with MRI evidence of osteomyelitis patient with history of debridement and endovascular intervention Dementia History of grade 1 varices and gastric ulcers Diabetes mellitus End stage renal disease on dialysis History of renal cancer with partial nephrectomy Hypertension Plan: on IV antibiotics as per ID Monitor H&H and transfuse as necessary on DVT prophylaxis start low dose Pepcid IVPB consider PEG tube, concern with anesthesia, will have to discuss with family and would recommend evaluation by anesthesia team prior any endo eval. As per neuro, ID, surgery Seen and discussed with Dr. Huber. <Liss Huber V - Last Filed: 04/19/17 23:30> Objective - Vital Signs/Intake and Output Vital Signs (last 24 hours): Temp Pulse Resp BP Pulse Ox 97.6 F 64 18 175/71 H 97 04/19/17 07:30 04/19/17 07:30 04/19/17 07:30 04/19/17 10:21 04/19/17 07:30 Intake and Output: 04/19/17 04/20/17 18:59 06:59 Intake Total 0 Balance 0 - Medications Medications: Current Medications Acetaminophen (Tylenol 325mg Tab) 650 mg PO Q6H PRN PRN Reason: Pain, Mild (1-3) Acetaminophen (Tylenol 325 Mg Supp) 325 mg RC Q4H PRN PRN Reason: Fever >100.4 F Last Admin: 04/15/17 07:40 Dose: 325 mg Albuterol/Ipratropium (Duoneb 3 Mg/0.5 Mg (3 Ml) Ud) 3 ml IH [id number] [facility] Last Admin: 04/19/17 20:57 Dose: 3 ml Amlodipine Besylate (Norvasc) 10 mg PO DAILY [facility] Last Admin: 04/19/17 10:21 Dose: 10 mg Aspirin (Ecotrin) 81 mg PO DAILY [facility] Last Admin: 04/19/17 10:20 Dose: 81 mg Carvedilol (Coreg) 6.25 mg PO BID [facility] Last Admin: 04/14/17 09:35 Dose: Not Given Cinacalcet (Sensipar) 30 mg PO DAILY [facility] Last Admin: 04/19/17 10:21 Dose: 30 mg Donepezil HCl (Aricept) 10 mg PO HS [facility] Last Admin: 04/13/17 22:34 Dose: Not Given Heparin Sodium (Porcine) (Heparin) 5,000 units SC Q12 [facility] PRN Reason: Protocol Last Admin: 04/19/17 21:12 Dose: Not Given Hydralazine HCl (Apresoline) 100 mg PO Q8 [facility] Last Admin: 04/13/17 13:37 Dose: Not Given Hydralazine HCl (Apresoline) 10 mg IVP Q6 PRN PRN Reason: Other Dextrose (Dextrose 10% In Water) 500 mls @ 20 mls/hr IV .Q24H [facility] Last Admin: 04/19/17 11:00 Dose: 20 mls/hr Meropenem 250 mg/ Sodium (Chloride) 100 mls @ 100 mls/hr IVPB Q12H [facility] PRN Reason: Protocol Stop: 04/29/17 10:01 Last Admin: 04/19/17 21:56 Dose: 100 mls/hr Famotidine (Pepcid 20mg/50ml Premix) 20 mg in 50 mls @ 100 mls/hr IVPB DAILY [facility] Insulin Human Regular (Humulin R Med) 0 units SC ACHS [facility] PRN Reason: Protocol Last Admin: 04/19/17 22:06 Dose: Not Given Lactic Acid (Lac-Hydrin 12% Cream (140 G)) 0 ea TOP BID [facility] Last Admin: 04/19/17 18:31 Dose: 1 applic Lactulose (Enulose) 20 gm NG BID [facility] Last Admin: 04/19/17 18:31 Dose: 20 gm Levalbuterol HCl (Xopenex) 0.63 mg IH [id number] PRN PRN Reason: Shortness of Breath Last Admin: 04/16/17 13:56 Dose: 0.63 mg Valsartan (Diovan) 320 mg PO DAILY [facility] Last Admin: 04/19/17 10:21 Dose: 320 mg - Labs Labs: 04/19/17 08:29 04/19/17 08:28 PT 14.0 SECONDS (9.4-12.5) H 04/11/17 06:43 INR 1.27 (0.93-1.08) H 04/11/17 06:43 APTT 35.9 Seconds (25.1-36.5) 04/10/17 10:23 Attending/Attestation - Attestation I have personally seen and examined this patient.: Yes I have fully participated in the care of the patient.: Yes I have reviewed all pertinent clinical information, including history, physical exam and plan: Yes Notes (Text): This is an addendum to GI progress report dictated by Chanel Schulz APN.The patient was seen and examined earlier. Medical records, lab studies, imagings were reviewed. Last 24 hours events reviewed. Agreed with the above treatment plan as outlined in Chanel Schulz APN's notes the with the addition of the following Patient is tolerating NG feeding abdomen soft no tenderness Chronic hepatitis B cirrhosis PEG tube in were slightly increased bleeding risk in view of this possible cirrhosis and portal hypertension We will discuss with the patient's daughter regarding the feeding tube 04/19/17 23:28
--- NOTE | 2017-04-19 19:50 | PN ---
DATE: 04/16/2017 SUBJECTIVE: This patient was seen and evaluated earlier today. The patient is lying on the bed, not very responsive, not respond to verbal commands. PHYSICAL EXAMINATION: VITAL SIGNS: Temperature is 98.5, pulse 70, blood pressure is 107/56. HEENT: Atraumatic, anicteric. NECK: Supple. HEART: S1 and S2 heard. LUNGS: Bilateral air entry present. There are occasional rhonchi present at the base. EXTREMITIES: No cyanosis, no clubbing. NEUROLOGIC: The patient does not respond to verbal commands. Moves all the extremities. LABORATORY DATA: Hemoglobin 8.5, hematocrit 26.5, WBC 17.5, platelets 165. BUN 16 and creatinine 3.9. IMPRESSION: This is a 76-year-old patient with end-stage renal disease, on hemodialysis; history of chronic hepatitis B; diabetes mellitus; gastroparesis; chronic constipation; had status post [id number] amputation, has significant change in mental status since surgery. The patient is not very communicative, poor response to verbal commands. RECOMMENDATIONS: Would recommend: 1. Continue the NG tube feeding and close monitoring of the blood sugar. 2. His ammonia level has been low, but we will continue the lactulose for the time being. 3. The patient does have an elevated white cell count, our plan is close monitoring. Overall prognosis on the patient appears to be guarded. The patient does have an increased white cell count. Continue to closely follow up the patient. The patient is on meropenem antibiotics, being followed by ID. Thank you very much for allowing us to participate in the care of the patient. Liss Huber MD
--- NOTE | 2017-04-19 19:50 | PN ---
DATE: 04/16/2017 SUBJECTIVE: The patient is in bed, in no acute distress, was seen this morning; however, chronically ill, debilitated, poorly responsive. PHYSICAL EXAMINATION: VITAL SIGNS: Temperature of 97, blood pressure is 140/60, respiratory rate of 20, heart rate of 77. HEENT: Unremarkable. NECK: Supple. LUNGS: Have decreased breath sounds. HEART: Normal S1, S2. ABDOMEN: Soft. LABORATORY DATA: Reveals the patient's white count is 17,500, hemoglobin of 8, platelets of 165. Creatinine is 3.9. Microbiology reveals the blood cultures are negative. At 24 hours, the patient's procalcitonin is 4.22 with creatinine of 3.9. Microbiology is noted and Ysabel Sandhu's notes was reviewed and appreciated. ASSESSMENT AND PLAN: A 76-year-old male was seen early this morning 563, bed 1 with bilateral gangrenous ulcers and status post left [id number] amputation, postprocedure day #5 and new leukocytosis, tachycardia, new infiltrate with sepsis with healthcare-associated pneumonia and dose of vancomycin was given and meropenem started day #2, cultures negative thus far. Overall prognosis quite poor for this patient who appears end-stage and with poor prognosis. Ibrahima Lara MD
--- NOTE | 2017-04-19 22:18 | PN ---
DATE: 04/19/2017 LOCATION: The patient in room 563, bed 1. REASON FOR CONSULTATION AND FOLLOWUP: End-stage renal failure, on dialysis; nonhealing ulcers, status post above-knee amputation of the left leg; altered mental status. SUBJECTIVE: The patient is lying flat in bed, and the patient looks to be more alert as compared to before. PHYSICAL EXAMINATION: VITAL SIGNS: Blood pressure 175/71, respirations 18, pulse 64, and temperature 97.6. HEENT: Head is normocephalic. Eyes: Pupils normal, conjunctivae slightly pale. NECK: JVP low. Carotids equal. THORAX: AP diameter normal. LUNGS: No rales. CARDIOVASCULAR: S1, S2. ABDOMEN: Soft, no tenderness, no organomegaly. EXTREMITIES: The patient has amputation of left leg above knee. LABORATORY: WBC 14.4, hemoglobin 8.3, hematocrit 25.9, platelets 254. Sodium 133, potassium 2.7, BUN 32, creatinine 5.2, blood sugar 143, calcium 10.4. DIAGNOSES: Renal failure, on dialysis; status post amputation, left leg above knee; altered mental status; hypertension; metabolic encephalopathy; chronic obstructive pulmonary disease; hyperlipidemia; sepsis. PLAN: The patient's mental status has been related to metabolic and also infected process. The patient's mental status seem to be improving. We will continue present therapy. We will follow. Ulysses Gama MD
--- NOTE | 2017-04-19 23:00 | PN ---
DATE: 04/19/2017 SUBJECTIVE: Patient is in bed in no acute distress. OBJECTIVE: VITAL SIGNS: Temperature is 97, blood pressure is 170/70, respiratory rate of 18, heart rate of 64. HEENT: Unremarkable. NECK: Supple. LUNGS: Have decreased breath sounds. HEART: Normal S1, S2. ABDOMEN: Soft, nontender. Laboratory examination reveals a white count of 14,400, hemoglobin of 8, platelets of 254. BUN of 32, creatinine of 5.2. Microbiology is reviewed. ASSESSMENT/PLAN: This is a 76-year-old male seen early this morning with bilateral gangrenous ulcer, status post debridement, status post left [id number]-pvn-jvjy amputation postprocedure day #8 with sepsis, healthcare-associated pneumonia, on vancomycin, meropenem day #5. Overall prognosis quite poor. Case discussed with . Ibrahima Lara MD
--- NOTE | 2017-04-19 23:47 | PN ---
PULMONARY PROGRESS NOTE DATE: 04/19/2017 REFERRING PHYSICIAN: Barber Aguirre MD SUBJECTIVE: The patient just come back from dialysis. Night was unremarkable, has a nasogastric tube, Dobhoff getting feeding, little more awake and alert, and still having issues with clearing secretions. No hemoptysis. No hematemesis. No hematuria. No diarrhea reported. PHYSICAL EXAMINATION: GENERAL: In no acute distress. VITAL SIGNS: Temperature is 98, heart rate is 64, respiratory rate is 18, blood pressure is 175/71, and pulse ox is 97% on 2 L nasal cannula. HEENT: Moist mucous membranes. Crowded airway. NECK: Supple. No JVD. LUNGS: Has a fair airflow with rhonchi. HEART: S1 and S2. ABDOMEN: Soft and nontender. No organomegaly. EXTREMITIES: Has left AKA. Right leg, no edema. NEUROLOGIC: Awake, alert, and follows simple command today. MEDICATIONS: He is on hydralazine 10 mg q.6 hours, he was on IV fluid D10 at 20 mL per hour, valsartan 320 mg daily, Ecotrin 81 mg daily, heparin 5000 units subcutaneously q.12 hours, insulin coverage, meropenem 250 mg q.12 hours, Norvasc 10 mg daily, Pepcid 20 mg IV daily, Sensipar 30 mg daily, Tylenol p.r.n. and Xopenex inhaled q.6 hours p.r.n. LABORATORY DATA: Shows hemoglobin 8.3, hematocrit 25.9, WBC 14.4, and platelet count is 254. Sodium 138, potassium 3.7, chloride 99, bicarbonate 30, BUN 32, creatinine 5.2, glucose 143, and calcium is 10.2. Chest x-ray done yesterday shows pulmonary infiltrate, some granulomatous disease also appreciated. IMPRESSION AND PLAN: Resolving sepsis; pulmonary infiltrate; probably have pneumonia; probably aspiration; renal failure, dialysis dependent; hypertension; peripheral vascular disease, status post left vlbri-zdj-[id number] amputation; and oropharyngeal dysphagia. Pulmonary point of view, keep head at 45 degrees, may use bilevel positive airway pressure respiratory distress, aspiration precaution, and antibiotics as per Infectious Disease. Thank you and we will follow with you. Ulysses Garza MD
[2017-04-20] MEDS: Albuterol-Ipratrop 3 mg / 0.5 (3 ml) UD IH SCH ×4 (02:00→19:22)
[2017-04-20 05:36] LABS: INR 1.39 (0.93-1.08)
[2017-04-20] MEDS: Insulin Reg-MEDIUM-Coverage SC SCH ×4 (08:29→22:34)
[2017-04-20] MEDS: Famotidine 20mg/50ml 20 MG/50 ML BAG IVPB SCH (12:14)
[2017-04-20] MEDS: Ammonium Lactate 12% Cream (140 g) TOP SCH (12:14)
--- NOTE | 2017-04-20 13:41 | PN ---
DATE: 04/20/2017 REASON FOR DICTATION: Preop evaluation, risk stratification, going for PEG placement. End-stage renal disease, on dialysis; nonhealing ulcers, status post left above-knee amputation; altered mental status; confused. SUBJECTIVE: The patient denies any chest pain, lying flat on the bed, not in apparent distress, but still appears confused. OBJECTIVE: GENERAL: Not in apparent distress for possible PEG placement today. VITAL SIGNS: As follows, temperature afebrile, heart rate 64, blood pressure 175/71. HEENT: PERRLA intact. NECK: Supple. No carotid bruits or thyromegaly. CHEST: Clear to auscultation. HEART: S1, S2 regular. ABDOMEN: Soft. EXTREMITIES: Clubbing, cyanosis negative. LABORATORY DATA: Blood workup as follows: WBC , hemoglobin 8.3, hematocrit 25.9, platelet count 254. Chemistry shows sodium 130, potassium 3.6, chloride 99, carbon dioxide 30, anion gap of 12, BUN 32, creatinine 5.2. IMPRESSION: Status post Dobhoff, but patient keeps on pulling the tube, confused, oropharyngeal dysphagia, altered mental status, high risk of aspiration, end-stage renal disease on dialysis, diabetes, severe peripheral artery disease, status post left vuncp-fcw-ayws amputation. RECOMMENDATIONS: As above, the patient is cleared to go for PEG placement. No absolute contraindication. No evidence of ischemia. No evidence of congestive heart failure or arrhythmia noted. The patient is moderate risk for undergoing any procedure because of with no absolute contraindication as mentioned above. We will put IV hydralazine p.r.n. till the patient gets PEG or feeding started as apparently looks like the patient is scheduled for this afternoon as n.p.o. So, we will put IV hydralazine. Thank you Dr. Aguirre for providing us the opportunity in taking care of the patient, Parris Cabral. Ulysses Flaherty MD
[2017-04-20] MEDS ORDERED: Etomidate 40 MG/20 ML ML IV ONE (16:22)
[2017-04-20] MEDS ORDERED: Propofol 10 mg/ml Inj (20 ML) ONE (16:22)
[2017-04-20] MEDS ORDERED: Sodium Chloride 0.9% 1,000 ML IV SCH (16:30)
--- NOTE | 2017-04-20 18:46 | CP.PCM.PN ---
Subjective - Date & Time of Evaluation Date of Evaluation: 04/20/17 Time of Evaluation: 23:43 - Subjective Subjective: Patient s/p PEG tube placement today; Objective - Vital Signs/Intake and Output Vital Signs (last 24 hours): Temp Pulse Resp BP Pulse Ox 98.1 F 60 18 146/62 96 04/20/17 18:38 04/20/17 18:38 04/20/17 18:38 04/20/17 18:38 04/20/17 18:38 Intake and Output: 04/20/17 04/20/17 06:59 18:59 Intake Total 240 Balance 240 - Medications Medications: Current Medications Acetaminophen (Tylenol 325 Mg Supp) 325 mg RC Q4H PRN PRN Reason: Fever >100.4 F Last Admin: 04/15/17 07:40 Dose: 325 mg Albuterol/Ipratropium (Duoneb 3 Mg/0.5 Mg (3 Ml) Ud) 3 ml IH [id number] [facility] Last Admin: 04/20/17 13:07 Dose: 3 ml Amlodipine Besylate (Norvasc) 10 mg PO DAILY [facility] Last Admin: 04/20/17 11:17 Dose: Not Given Aspirin (Ecotrin) 81 mg PO DAILY [facility] Last Admin: 04/20/17 11:16 Dose: Not Given Carvedilol (Coreg) 6.25 mg PO BID [facility] Last Admin: 04/14/17 09:35 Dose: Not Given Cinacalcet (Sensipar) 30 mg PO DAILY [facility] Last Admin: 04/20/17 11:17 Dose: Not Given Donepezil HCl (Aricept) 10 mg PO HS [facility] Last Admin: 04/13/17 22:34 Dose: Not Given Heparin Sodium (Porcine) (Heparin) 5,000 units SC Q12 [facility] PRN Reason: Protocol Last Admin: 04/20/17 10:30 Dose: Not Given Hydralazine HCl (Apresoline) 100 mg PO Q8 [facility] Last Admin: 04/13/17 13:37 Dose: Not Given Hydralazine HCl (Apresoline) 10 mg IVP Q6 PRN PRN Reason: Other Dextrose (Dextrose 10% In Water) 500 mls @ 20 mls/hr IV .Q24H [facility] Last Admin: 04/20/17 12:14 Dose: 20 mls/hr Meropenem 250 mg/ Sodium (Chloride) 100 mls @ 100 mls/hr IVPB Q12H [facility] PRN Reason: Protocol Stop: 04/29/17 10:01 Last Admin: 04/20/17 13:42 Dose: 100 mls/hr Famotidine (Pepcid 20mg/50ml Premix) 20 mg in 50 mls @ 100 mls/hr IVPB DAILY [facility] Last Admin: 04/20/17 12:14 Dose: 100 mls/hr Insulin Human Regular (Humulin R Med) 0 units SC ACHS [facility] PRN Reason: Protocol Last Admin: 04/20/17 16:58 Dose: Not Given Lactulose (Enulose) 20 gm NG BID [facility] Last Admin: 04/20/17 11:16 Dose: Not Given Levalbuterol HCl (Xopenex) 0.63 mg IH [id number] PRN PRN Reason: Shortness of Breath Last Admin: 04/16/17 13:56 Dose: 0.63 mg Valsartan (Diovan) 320 mg PO DAILY [facility] Last Admin: 04/20/17 11:16 Dose: Not Given - Labs Labs: 04/19/17 08:29 04/19/17 08:28 PT 15.4 SECONDS (9.4-12.5) H 04/20/17 05:00 INR 1.39 (0.93-1.08) H 04/20/17 05:00 APTT 32.0 Seconds (25.1-36.5) 04/20/17 05:00 Assessment and Plan (1) Delirium Status: Acute (2) ESRD (end stage renal disease) Assessment & Plan: Stable electrolyte and resp status; tolerated UF on HD yesterday; next HD for tomorrow per routine; Status: Chronic (3) Sepsis Assessment & Plan: On meropenem, dosed for HD; Status: Acute (4) Anemia in ESRD (end-stage renal disease) Assessment & Plan: Hgb stable but well below goal; will increase aranesp to 150 mcg weekly (dose due tomorrow); will start IV iron on HD; Status: Acute (5) Chronic kidney disease-mineral and bone disorder Assessment & Plan: Corrected Ca elevated; should improve once receiving sensipar regularly; Status: Acute (6) Hypertensive CKD, ESRD on dialysis Assessment & Plan: BP fluctuating; restart valsartan and amlodipine tomorrow; Status: Acute
--- NOTE | 2017-04-20 20:35 | PN ---
PULMONARY PROGRESS NOTE DATE: 04/20/2017 REFERRING PHYSICIAN: Barber Aguirre MD SUBJECTIVE: He is lying in the bed, head at 45 degrees, has a nasogastric tube in, scheduled for possible G-tube placement. He is more awake and alert, still has severe oropharyngeal dysphagia. No hemoptysis. No hematemesis. No hematuria. No diarrhea reported. PHYSICAL EXAMINATION GENERAL: In no acute distress. VITAL SIGNS: Temperature is 99, heart rate is 64, respiratory rate is 18, blood pressure is 161/61 and pulse oximetry is 100% on 2 L nasal cannula. HEENT: Moist mucous membranes. Crowded airway. Has a nasogastric tube. LUNGS: Has a fair airflow with scattered rhonchi. HEART: S1 and S2. ABDOMEN: Soft and nontender. No organomegaly. EXTREMITIES: No edema of the right leg, has left AKA. NEUROLOGIC: Awake and alert. Not much verbal, confused. MEDICATIONS: He is on medications, but not taking p.o., so he is presently on active medications, hydralazine 10 mg q. 6 hours p.r.n., he is getting IV fluid, also getting albuterol/Atrovent nebulizer q. 6 hours, meropenem 250 mg q. 12 hours, Tylenol p.r.n. and Xopenex inhaled q. 6 hours. LABORATORY DATA: Shows INR 1.39, PTT 32. Blood sugar is 143. Jakob occult blood is positive. ASSESSMENT AND PLAN: Resolving sepsis, pulmonary infiltrate probably have pneumonia and probably aspiration, renal failure, dialysis dependent, hypertension, peripheral vascular disease status post left above-knee amputation, oropharyngeal dysphagia, has a nasogastric tube, but n.p.o. for possible gastrostomy tube, if sedated and needs close cardiopulmonary monitoring while sleeping, aspiration precaution, bronchodilator, gastric prophylaxis. Continue antibiotics as per Infectious Disease. Thank you and we will follow with you. Ulysses Garza MD
--- NOTE | 2017-04-21 01:01 | PN ---
DATE: 04/20/2017 SUBJECTIVE: The patient is in bed in no acute distress, nontoxic. PHYSICAL EXAMINATION: VITAL SIGNS: Temperature is 98, blood pressure is 113/70, respiratory rate of 19, heart rate of 59. HEENT: Examination of HEENT is unremarkable. NECK: Supple. CARDIOPULMONARY: Normal S1, S2. LUNGS: Decreased breath sounds. ABDOMEN: Soft, nontender. LABORATORY DATA: Reveals a white count of 14,000, hemoglobin of 8, platelets of 252. BUN 32, creatinine of 5.2. ASSESSMENT AND PLAN: A 76-year-old male, bilateral gangrenous ulcers, status post debridement, status post above- knee amputation, postprocedure day #9, with sepsis and healthcare-associated pneumonia, on vancomycin and meropenem, day #6. Dr. Garcia's note is reviewed. Overall prognosis is quite poor for this patient. Ibrahima Lara MD
[2017-04-21] MEDS: Albuterol-Ipratrop 3 mg / 0.5 (3 ml) UD IH SCH ×4 (01:12→20:43)
--- NOTE | 2017-04-21 03:58 | PN ---
DATE: 04/20/2017 SUBJECTIVE: Patient status post feeding tube, insertion by Dr. Huber. Patient is comfortable. It is difficult to arouse now because of the recent sedation, which easily takes probably a day or two to clear up. PHYSICAL EXAMINATION: As follows: VITAL SIGNS: Temperature 98.1, heart rate 59, blood pressure 147/57, respirations 19 and saturating 96%. HEAD AND NECK: Normal. No JVD. No thyromegaly. CHEST: Clear. CARDIAC: First sound and second sound normal. ABDOMEN: Soft. Recent PEG tube feeding inserted, site is clean. Bowel sounds intact. EXTREMITIES: Left above knee amputations. Right leg is normal. Diminished pulse. NEUROLOGIC: Patient is lethargic from recent sedation. LABORATORY DATA: Patient's blood sugar runs 150 to 200. IMPRESSION AND PLAN: 1. Status post feeding tube insertion, percutaneous endoscopic gastrostomy tube tolerated well. We will start feeding probably tonight and eventually we will [facility] the patient back to [facility] once his mental status get better. 2. Chronic renal failure, chronic hepatitis B. Patient is stable at this time. We will continue hemodialysis, monitor his clinical status and resume lactulose if needed. 3. Hypertension and hypercholesterolemia, resume all blood pressure medications. 4. Sepsis, leukocytosis, probably cellulitis, osteomyelitis, nosocomial pneumonia. Continue meropenem plus vancomycin. Continue inhaled bronchodilators. Followup clinically. Continue gastrointestinal and deep vein thrombosis prophylaxis. Barber Aguirre MD
--- NOTE | 2017-04-21 07:53 | PN ---
DATE: 04/19/2017 SUBJECTIVE: Patient is lying supine in the bed his mental status is better. He is opening his eyes. He spontaneously moves his upper extremities. He respond to calling his name, but still having difficult swallowing and has no apparent distress. PHYSICAL EXAMINATION: VITAL SIGNS: Temperature is 97.6, heart rate is 64, blood pressure 163/63, respirations 18, saturation 97% on room air. HEAD AND NECK: Normal. No JVD. No thyromegaly. CHEST: Clear. CARDIAC: First sound and second sound normal. ABDOMEN: Soft and nontender. EXTREMITIES: Left above-knee amputations. NEUROLOGIC: He move all extremities, but his mental status is still embedded, but seems improving. LABORATORY DATA: White count 14.4, hemoglobin 8.3, hematocrit 25.9 and platelets 254. Chemistry noted for sodium 138, potassium 3.7, chloride 99, bicarbonate 30, BUN 32, creatinine 5.2, blood sugar 152, calcium 10.4. IMPRESSION AND PLAN: 1. Patient has status post left above-knee amputations, continue local wound care, continue IV antibiotic, meropenem and vancomycin for treating his cellulitis, osteomyelitis and sepsis. 2. Sepsis due to his recent pneumonia and wound infection. Currently his blood cultures x2 is negative. Continue meropenem, continue vancomycin and continue inhaled bronchodilators. Patient seen by Dr. Lara. 3. Dysphagia. Possibly due to change in mental status. We will consider feeding tube to increase his nutritional intake. Patient has low albumin which reflects upon nutrition. We will started the nasogastric tube feeding, Dobhoff tube will continue that for now we will order in the morning about PEG tube feeding. 4. Hypertension stable continue Norvasc, continue hydralazine, losartan 320, Coreg 6.25 b.i.d. 5. Patient dose have chronic renal failure. Continue hemodialysis, chronic lever disease, hepatitis B. This time we will continue current therapy and follow up clinically. 6. Dementia. Continue aspirin and continue Aricept. Barber Aguirre MD
--- NOTE | 2017-04-21 08:23 | CP.PCM.PN ---
Subjective - Date & Time of Evaluation Date of Evaluation: 04/21/17 Time of Evaluation: 06:40 - Subjective Subjective: General Surgery Note for Dr. Joy Patient seen and examined at bedside. No acute event overnight. He is resting in bed comfortably. Patient is s/p PEG tube insertion POD #1. Patient follows some commands but is nonverbal currently. ROS unobtainable. Objective - Vital Signs/Intake and Output Vital Signs (last 24 hours): Temp Pulse Resp BP Pulse Ox 98.3 F 58 L 18 149/56 L 100 04/21/17 00:00 04/21/17 00:00 04/21/17 00:00 04/21/17 00:00 04/21/17 00:00 Intake and Output: 04/21/17 04/21/17 06:59 18:59 Intake Total 240 Output Total 0 Balance 240 - Medications Medications: Current Medications Acetaminophen (Tylenol 325 Mg Supp) 325 mg RC Q4H PRN PRN Reason: Fever >100.4 F Last Admin: 04/15/17 07:40 Dose: 325 mg Albuterol/Ipratropium (Duoneb 3 Mg/0.5 Mg (3 Ml) Ud) 3 ml IH [id number] [facility]CLUDE 234 BEDS AT THE [facility] Last Admin: 04/21/17 01:12 Dose: 3 ml Amlodipine Besylate (Norvasc) 10 mg PO DAILY COUNTS INCLUDE 234 BEDS AT THE [facility] Last Admin: 04/20/17 11:17 Dose: Not Given Aspirin (Ecotrin) 81 mg PO DAILY COUNTS INCLUDE 234 BEDS AT THE [facility] Last Admin: 04/20/17 11:16 Dose: Not Given Carvedilol (Coreg) 6.25 mg PO BID COUNTS INCLUDE 234 BEDS AT THE [facility] Last Admin: 04/14/17 09:35 Dose: Not Given Cinacalcet (Sensipar) 30 mg PO DAILY [facility] Last Admin: 04/20/17 11:17 Dose: Not Given Donepezil HCl (Aricept) 10 mg PO HS COUNTS INCLUDE 234 BEDS AT THE [facility] Last Admin: 04/13/17 22:34 Dose: Not Given Heparin Sodium (Porcine) (Heparin) 5,000 units SC Q12 [facility] PRN Reason: Protocol Last Admin: 04/20/17 22:01 Dose: Not Given Hydralazine HCl (Apresoline) 100 mg PO Q8 [facility] Last Admin: 04/13/17 13:37 Dose: Not Given Hydralazine HCl (Apresoline) 10 mg IVP Q6 PRN PRN Reason: Other Dextrose (Dextrose 10% In Water) 500 mls @ 20 mls/hr IV .Q24H [facility] Last Admin: 04/20/17 12:14 Dose: 20 mls/hr Meropenem 250 mg/ Sodium (Chloride) 100 mls @ 100 mls/hr IVPB Q12H [facility] PRN Reason: Protocol Stop: 04/29/17 10:01 Last Admin: 04/20/17 22:34 Dose: 100 mls/hr Famotidine (Pepcid 20mg/50ml Premix) 20 mg in 50 mls @ 100 mls/hr IVPB DAILY [facility] Last Admin: 04/20/17 12:14 Dose: 100 mls/hr Insulin Human Regular (Humulin R Med) 0 units SC ACHS [facility] PRN Reason: Protocol Last Admin: 04/20/17 22:34 Dose: Not Given Lactulose (Enulose) 20 gm NG BID COUNTS INCLUDE 234 BEDS AT THE [facility] Last Admin: 04/20/17 11:16 Dose: Not Given Levalbuterol HCl (Xopenex) 0.63 mg IH [id number] PRN PRN Reason: Shortness of Breath Last Admin: 04/16/17 13:56 Dose: 0.63 mg Valsartan (Diovan) 320 mg PO DAILY COUNTS INCLUDE 234 BEDS AT THE [facility] Last Admin: 04/20/17 11:16 Dose: Not Given - Labs Labs: 04/19/17 08:29 04/19/17 08:28 PT 15.4 SECONDS (9.4-12.5) H 04/20/17 05:00 INR 1.39 (0.93-1.08) H 04/20/17 05:00 APTT 32.0 Seconds (25.1-36.5) 04/20/17 05:00 - Constitutional Appears: No Acute Distress, Cachectic - Head Exam Head Exam: ATRAUMATIC, NORMOCEPHALIC - Eye Exam Eye Exam: Normal appearance - ENT Exam ENT Exam: Mucous Membranes Moist - Respiratory Exam Respiratory Exam: NORMAL BREATHING PATTERN - Cardiovascular Exam Cardiovascular Exam: REGULAR RHYTHM - GI/Abdominal Exam GI & Abdominal Exam: Soft. absent: Tenderness Additional comments: s/p PEG tube insertion - area clean and dry with no evidence of bleeding or erythema - Extremities Exam Additional comments: s/p Left AKA with fish mouth incision with sutures in place, dressing clean, dry and intact - Neurological Exam Neurological Exam: Awake - Psychiatric Exam Psychiatric exam: Flat Affect - Skin Skin Exam: Dry, Intact, Normal Color, Warm Assessment and Plan - Assessment and Plan (Free Text) Plan: 76 M s/p left above the knee amputation POD#10, s/p PEG tube insertion POD #1 - f/u GI recommendations - Analgesics PRN - Continue IV antibiotics - medical management per primary team - No further surgical intervention needed - Will discuss with Dr. Rufino Goncalves PGY1
[2017-04-21] MEDS: Insulin Reg-MEDIUM-Coverage SC SCH ×4 (08:59→23:43)
[2017-04-21] MEDS: Famotidine 20mg/50ml 20 MG/50 ML BAG IVPB SCH (11:34)
--- NOTE | 2017-04-21 12:00 | CP.PCM.PN ---
Subjective - Date & Time of Evaluation Date of Evaluation: 04/21/17 Time of Evaluation: 11:00 - Subjective Subjective: Patient s/p PEG tube placement yesterday; more alert but still not back to baseline; Objective - Vital Signs/Intake and Output Vital Signs (last 24 hours): Temp Pulse Resp BP Pulse Ox 98.3 F 59 L 18 154/57 H 100 04/21/17 07:30 04/21/17 07:30 04/21/17 07:30 04/21/17 07:30 04/21/17 07:30 Intake and Output: 04/21/17 04/21/17 06:59 18:59 Intake Total 240 Output Total 0 Balance 240 - Medications Medications: Current Medications Acetaminophen (Tylenol 325 Mg Supp) 325 mg RC Q4H PRN PRN Reason: Fever >100.4 F Last Admin: 04/15/17 07:40 Dose: 325 mg Albuterol/Ipratropium (Duoneb 3 Mg/0.5 Mg (3 Ml) Ud) 3 ml IH [id number] [facility] Last Admin: 04/21/17 09:22 Dose: 3 ml Aspirin (Ecotrin) 81 mg PO DAILY [facility] Last Admin: 04/21/17 11:16 Dose: Not Given Carvedilol (Coreg) 6.25 mg PO BID [facility] Last Admin: 04/14/17 09:35 Dose: Not Given Cinacalcet (Sensipar) 30 mg PO DAILY [facility] Last Admin: 04/21/17 11:17 Dose: Not Given Donepezil HCl (Aricept) 10 mg PO HS [facility] Last Admin: 04/13/17 22:34 Dose: Not Given Heparin Sodium (Porcine) (Heparin) 5,000 units SC Q12 [facility] PRN Reason: Protocol Last Admin: 04/21/17 11:37 Dose: 5,000 units Hydralazine HCl (Apresoline) 100 mg PO Q8 [facility] Last Admin: 04/13/17 13:37 Dose: Not Given Hydralazine HCl (Apresoline) 10 mg IVP Q6 PRN PRN Reason: Other Dextrose (Dextrose 10% In Water) 500 mls @ 20 mls/hr IV .Q24H [facility] Last Admin: 04/21/17 11:15 Dose: 20 mls/hr Meropenem 250 mg/ Sodium (Chloride) 100 mls @ 100 mls/hr IVPB Q12H [facility] PRN Reason: Protocol Stop: 04/29/17 10:01 Last Admin: 04/21/17 11:35 Dose: 100 mls/hr Famotidine (Pepcid 20mg/50ml Premix) 20 mg in 50 mls @ 100 mls/hr IVPB DAILY [facility] Last Admin: 04/21/17 11:34 Dose: 100 mls/hr Insulin Human Regular (Humulin R Med) 0 units SC ACHS [facility] PRN Reason: Protocol Last Admin: 04/21/17 11:38 Dose: Not Given Lactulose (Enulose) 20 gm NG BID [facility] Last Admin: 04/21/17 11:16 Dose: Not Given Levalbuterol HCl (Xopenex) 0.63 mg IH [id number] PRN PRN Reason: Shortness of Breath Last Admin: 04/16/17 13:56 Dose: 0.63 mg Valsartan (Diovan) 320 mg PO DAILY [facility] Last Admin: 04/21/17 11:16 Dose: Not Given - Labs Labs: 04/19/17 08:29 04/19/17 08:28 PT 15.4 SECONDS (9.4-12.5) H 04/20/17 05:00 INR 1.39 (0.93-1.08) H 04/20/17 05:00 APTT 32.0 Seconds (25.1-36.5) 04/20/17 05:00 - Constitutional Appears: Non-toxic, No Acute Distress - Head Exam Head Exam: NORMAL INSPECTION - Eye Exam Eye Exam: absent: Scleral icterus - ENT Exam ENT Exam: Mucous Membranes Moist - Respiratory Exam Respiratory Exam: Clear to Ausculation Bilateral. absent: Respiratory Distress - Cardiovascular Exam Cardiovascular Exam: RRR, +S1, +S2 - GI/Abdominal Exam GI & Abdominal Exam: Soft. absent: Distended, Tenderness - Extremities Exam Additional comments: no leg edema; - Neurological Exam Neurological Exam: Alert, Awake Additional comments: occasional responds with verbalization; - Psychiatric Exam Psychiatric exam: absent: Agitated - Skin Skin Exam: Warm. absent: Cyanosis Assessment and Plan (1) Delirium Assessment & Plan: Mental status improved but still not back to baseline; waxing/waning mental status in the setting of sepsis, new L AKA; holding psychotropic meds; Status: Acute (2) ESRD (end stage renal disease) Assessment & Plan: Stable electrolyte and volume status; next HD today per routine, goal UF 1.5L net; Status: Chronic (3) Sepsis Assessment & Plan: MRSA of R heel s/p vanco; L foot OM now s/p L AKA; HCAP on meropenem, dosed for HD; Status: Acute (4) Anemia in ESRD (end-stage renal disease) Assessment & Plan: Hgb well below goal, increasing aranesp to 150 mcg weekly; Status: Acute (5) Chronic kidney disease-mineral and bone disorder Assessment & Plan: High Ca level, resume sensipar 30 mg daily; Status: Acute (6) Hypertensive CKD, ESRD on dialysis Assessment & Plan: Mildly elevated BP, continue amlodipine and valsartan; holding coreg and hydralazine for now; Status: Acute
--- NOTE | 2017-04-21 19:44 | PN ---
DATE: 04/21/2017 SUBJECTIVE: The patient seen in bed, in no acute distress. The patient is nontoxic. PHYSICAL EXAMINATION VITAL SIGNS: The patient was seen early this morning with a temperature of 98, blood pressure 150/50, respiratory rate of 18 and heart rate of 59. HEENT: Unremarkable. NECK: Supple. LUNGS: Has decreased breath sounds. HEART: Normal S1 and S2. ABDOMEN: Soft and nontender. LABORATORY DATA: Reveals a white count of 14,000 and hemoglobin of 8. Chemistries are noted with a BUN of 32 and creatinine of 5.2. ASSESSMENT AND PLAN: This is a 76-year-old male seen in 563, bed 1 earlier today, bilateral gangrenous ulcer, status post debridement, status post [id number] amputation postprocedure day #10 with sepsis with healthcare-associated pneumonia and day #[address] Joy's note from today is reviewed. The patient is status post percutaneous endoscopic gastrostomy tube insertion post day #1. Dr. Aguirre's note from today is also reviewed. We will discontinue the meropenem. I will discuss with Podiatry regarding right foot infection. Ibrahima Lara MD
--- NOTE | 2017-04-21 20:09 | PN ---
DATE: 04/21/2017 REFERRING PHYSICIAN: Dr. Aguirre. SUBJECTIVE: The patient is seen on dialysis bed, much more awake and alert, status post G-tube placement. No chest pain. No nausea. No vomiting and no diarrhea. Left leg stump looks okay. OBJECTIVE: GENERAL: In no acute distress. VITAL SIGNS: Temperature is 99, heart rate is 95, respiratory rate is 18, blood pressure is 115/78 and pulse oximetry is 99% on room air. HEENT: Moist mucous membranes. Crowded airway. NECK: Supple. No JVD. LUNGS: Has a fair airflow with rhonchi. HEART: S1 and S2. ABDOMEN: Soft and nontender. No organomegaly. G-tube area looks okay. EXTREMITIES: Left leg stumps looks okay. NEUROLOGIC: Awake and alert. Follow simple commands. MEDICATIONS: He is on hydralazine 100 mg q. 8 hours, Aricept 10 mg at bedtime, Coreg 6.25 mg twice a day, IV dextrose 20 mL per hour, Diovan 320 mg daily, DuoNeb q. 6 hours, Ecotrin 81 mg daily, Lactulose 20 g twice a day, heparin 5000 subcutaneously q. 12 hours, insulin coverage, Pepcid 20 mg IV drip, Sensipar 30 mg daily, Tylenol p.r.n., Xopenex q. 6 hours. LABORATORY DATA: Reviewed shows blood sugar of 106. Repeat blood culture have been negative. IMPRESSION AND PLAN: Resolving sepsis, pulmonary infiltrate probably aspiration pneumonia, renal failure, dialysis dependent, hypertension, peripheral vascular disease status post left above-knee amputation, oropharyngeal dysphagia, status post gastrostomy tube placement. Clinically, he is much more awake and alert. Keep head 45 degree. Aspiration precaution; when clear by GI, start feeding; bronchodilator; nephrology says she can followup; fall precautions. Thank you and we will follow with you. Ulysses Garza MD
[2017-04-22] MEDS: Albuterol-Ipratrop 3 mg / 0.5 (3 ml) UD IH SCH ×2 (02:40→08:16)
[2017-04-22 06:42] VITALS: RESP 22
--- NOTE | 2017-04-22 07:44 | PN ---
DATE: 04/21/2017 SUBJECTIVE: The patient was seen and evaluated in the Renal Dialysis Unit, where the patient was undergoing dialysis today. PHYSICAL EXAMINATION: GENERAL: Today he appears more comfortable. VITAL SIGNS: Temperature 99.9, pulse 66, and blood pressure 140/66. HEENT: Atraumatic. Anicteric. NECK: Supple. HEART: S1 and S2 heard. LUNGS: Bilateral air entry present. ABDOMEN: Soft. EXTREMITIES: Left above knee amputation. LABORATORY DATA: Hemoglobin is 8.3 and hematocrit 25.9. The patient's PEG site appears unremarkable. IMPRESSION: This is a 76-year-old patient with chronic liver disease, probable cirrhosis, hepatitis b, status post above knee amputation. . Today he appears more comfortable. The patient has been placed on a PEG tube We start feedibng at 30cc/hr. Liss Huber MD MTDD
[2017-04-22 08:07] VITALS: BP 137/59; PULSE 75; TEMP 99.5; O2SAT 97
[2017-04-22] MEDS: Famotidine 20mg/50ml 20 MG/50 ML BAG IVPB SCH (09:47)
[2017-04-22] MEDS: Insulin Reg-MEDIUM-Coverage SC SCH ×2 (09:47→13:29)
[2017-04-22] MEDS ORDERED: Darbepoetin Alfa 100 mcg/ml Inj SC ONE (10:54)
--- NOTE | 2017-04-22 11:04 | CP.PCM.PN ---
Subjective - Date & Time of Evaluation Date of Evaluation: 04/22/17 Time of Evaluation: 11:01 - Subjective Subjective: Patient with hiccups noted today; started PEG tube feeds yesterday, up to 40 cc/ hr; Objective - Vital Signs/Intake and Output Vital Signs (last 24 hours): Temp Pulse Resp BP Pulse Ox 99.5 F 75 22 137/59 L 97 04/22/17 07:30 04/22/17 07:30 04/22/17 07:30 04/22/17 07:30 04/22/17 07:30 Intake and Output: 04/22/17 04/22/17 06:59 18:59 Intake Total 0 Balance 0 - Medications Medications: Current Medications Acetaminophen (Tylenol 325 Mg Supp) 325 mg RC Q4H PRN PRN Reason: Fever >100.4 F Last Admin: 04/15/17 07:40 Dose: 325 mg Albuterol/Ipratropium (Duoneb 3 Mg/0.5 Mg (3 Ml) Ud) 3 ml IH [id number] [facility] Last Admin: 04/22/17 08:16 Dose: 3 ml Amlodipine Besylate (Norvasc) 10 mg PO DAILY [facility] Aspirin (Ecotrin) 81 mg PO DAILY [facility] Last Admin: 04/22/17 09:46 Dose: 81 mg Cinacalcet (Sensipar) 30 mg PO DAILY [facility] Last Admin: 04/22/17 09:46 Dose: 30 mg Donepezil HCl (Aricept) 10 mg PO HS [facility] Last Admin: 04/13/17 22:34 Dose: Not Given Heparin Sodium (Porcine) (Heparin) 5,000 units SC Q12 [facility] PRN Reason: Protocol Last Admin: 04/22/17 09:46 Dose: 5,000 units Hydralazine HCl (Apresoline) 10 mg IVP Q6 PRN PRN Reason: Other Famotidine (Pepcid 20mg/50ml Premix) 20 mg in 50 mls @ 100 mls/hr IVPB DAILY [facility] Last Admin: 04/22/17 09:47 Dose: 100 mls/hr Insulin Human Regular (Humulin R Med) 0 units SC ACHS [facility] PRN Reason: Protocol Last Admin: 04/22/17 09:47 Dose: Not Given Lactulose (Enulose) 20 gm NG BID [facility] Last Admin: 04/22/17 09:46 Dose: 20 gm Levalbuterol HCl (Xopenex) 0.63 mg IH [id number] PRN PRN Reason: Shortness of Breath Last Admin: 04/16/17 13:56 Dose: 0.63 mg Valsartan (Diovan) 320 mg PO DAILY [facility] Last Admin: 04/22/17 09:46 Dose: 320 mg - Labs Labs: 04/19/17 08:29 04/19/17 08:28 PT 15.4 SECONDS (9.4-12.5) H 04/20/17 05:00 INR 1.39 (0.93-1.08) H 04/20/17 05:00 APTT 32.0 Seconds (25.1-36.5) 04/20/17 05:00 - Constitutional Appears: Non-toxic, No Acute Distress - Eye Exam Eye Exam: absent: Scleral icterus - ENT Exam ENT Exam: Mucous Membranes Moist - Respiratory Exam Respiratory Exam: Clear to Ausculation Bilateral. absent: Respiratory Distress Additional comments: shallow breaths; - Cardiovascular Exam Cardiovascular Exam: RRR, +S1, +S2 - GI/Abdominal Exam GI & Abdominal Exam: Soft. absent: Distended, Tenderness - Extremities Exam Additional comments: no leg edema; - Neurological Exam Neurological Exam: Alert, Awake Additional comments: minimally verbalizes occasionally; - Psychiatric Exam Psychiatric exam: absent: Agitated - Skin Skin Exam: Warm. absent: Cyanosis Assessment and Plan (1) ESRD (end stage renal disease) Assessment & Plan: Stable volume status on exam; s/p HD yesterday; next HD on Sunday per routine; Status: Chronic (2) Delirium Assessment & Plan: Mental status overall improved and not as lethargic, though may never return to baseline; avoid hypotension, aim for BP <150's/90's; Status: Acute (3) Sepsis Assessment & Plan: Off all antibiotics s/p L AKA for OM, R heel MRSA and HCAP; should d/c PICC line before d/c if no further plans for abx (nursing staff informed); Status: Acute (4) Anemia in ESRD (end-stage renal disease) Assessment & Plan: Hgb below goal in the setting of acute illness; giving aranesp 150 mcg (subcu) today; Status: Acute (5) Chronic kidney disease-mineral and bone disorder Assessment & Plan: Hypercalcemia over past few months; continue sensipar 30 mg daily; restart sevelamer 1 tab tid; Status: Acute (6) Hypertensive CKD, ESRD on dialysis Assessment & Plan: BP controlled; will continue with amlodipine 10 mg daily and valsartan 320 mg daily; will hold off on hydralazine until SBP consistently > 150; Status: Acute - Assessment and Plan (Free Text) Assessment: Thank you Dr. Aguirre for allowing us to partake in the care of this patient; we will be following up closely as outpatient;
--- NOTE | 2017-04-22 18:28 | PN ---
DATE: 04/22/2017 SUBJECTIVE: The patient is in bed and was seen earlier today in room 563, bed 1. No fevers, no chills. No nausea, no vomiting. PHYSICAL EXAMINATION: VITAL SIGNS: Temperature is 98, blood pressure is 130/70, respiratory rate 22, heart rate of 75. HEENT: Unremarkable. NECK: Supple. LUNGS: Have decreased breath sounds. HEART: Normal S1, S2. ABDOMEN: Soft. LABORATORY EXAMINATION: Reveals a white count of 14.4 and the chemistries are noted. Microbiology is reviewed, and review of orders are noted. ASSESSMENT AND PLAN: This is a 76-year-old male with bilateral gangrenous ulcers status post debridement, status post above-knee amputation, postprocedure day #11 with sepsis, healthcare-associated pneumonia and complete 7 days of meropenem, and gastrostomy tube insertion post day #2. The patient is at risk for developing nosocomial infections. Ibrahima Lara MD
--- NOTE | 2017-04-23 00:52 | PN ---
DATE: 04/21/2017 SUBJECTIVE: The patient had hemodialysis, stable. No new complaints. Mental status a little bit better, still lethargic. PHYSICAL EXAMINATION VITAL SIGNS: Temperature is 98.3, heart rate is 59, blood pressure is 154/57, respirations are 18, and saturating 100%. HEAD AND NECK: Normal. No JVD. No thyromegaly. CHEST: Clear bilaterally. Diminished breath sounds on the lung, but clear. CARDIAC: First sound and second sound normal. ABDOMEN: Soft with PEG site clean and functioning. Bowel sounds are intact. EXTREMITIES: Left above-knee amputation, otherwise no edema. NEUROLOGIC: The patient generally weak. He is less lethargic than day of surgery. IMPRESSION AND PLAN: 1. Status post percutaneous endoscopic gastrostomy tube surgery. Continue Nepro 30 mL and will increase it to gradually. We will monitor status. 2. Diabetes, stable. Continue current therapy. 3. Hypertension. Resume all blood pressure medicines as before, Norvasc and Cozaar and we will monitor his blood pressure status. 4. Chronic renal failure. Continue hemodialysis and continue Renagel. 5. Chronic hepatitis B. The patient is not a candidate for therapy. Continue lactulose 20 g b.i.d. and continue Protonix. 6. Diabetes, stable. No hypoglycemia, so far and continue insulin coverage p.r.n. PLAN: Continue current therapy. The patient is off antibiotics. Planing to discharge him in the morning to rehab seems stable and we will monitor his mental status and we will see. Barber Aguirre MD
--- NOTE | 2017-04-23 03:24 | DS ---
HISTORY OF PRESENT ILLNESS: The patient is clinically stable. He is more alert and more awake. He does not respond appropriately to the questions, but he does respond verbally. He open his eyes. He move his upper extremity. He is better clinically than yesterday. The patient had the feeding tube recently, functioning good, we will increase the feeding to 40 mL. He has no nausea or vomiting. His temperature is 99.5, we will monitor that. At this time, there is no vomiting and clinically stable. PHYSICAL EXAMINATION: VITAL SIGNS: Heart rate 75, blood pressure 137/59, respiratory rate 22, saturation 97% to 100% on room air. HEAD AND NECK: Normal. No JVD. No thyromegaly. CHEST: Clear. CARDIAC: First sound and second sound normal. ABDOMEN: Soft, nontender. EXTREMITIES: Left [id number] amputation. LABORATORY STUDIES: The patient had blood cultures several times, which is negative and his blood sugar running 140s, 150 now. HOSPITAL COURSE: We are going to mention the patient had left leg [id number] amputation due to osteomyelitis, which had revascularization of his tibial arteries both of them, but did not help. He did have debridement, did not help, osteomyelitis treated with IV antibiotics meropenem and vancomycin during dialysis. We ended by surgical amputation. While he is in the hospital develops pneumonia, which treated with meropenem and vancomycin for almost 7 days. Eventually, the patient had feeding tube, which was done and perfectly functioning and increased his feeding Nepro to 40 mL per hour. The patient's mental status it happen with the anesthesia his mental status takes time for clear of the medications, because of combined renal and liver disease. A Dobhoff tube has been inserted several times; however, at the end the feeding tube has been placed because of on and off mental status changes, low protein. After discussion with the daughter she agrees, PEG tube was done and the patient has feeding in since his mental status now is better after the last procedures and hopefully it will clear up more. At this time, patient is usually bedridden, not much functioning; however, he seems better mentally and we will discharge the patient to intermediate to be followed in the intermediate. DISCHARGE DIAGNOSES: 1. Left leg gangrene with osteomyelitis. 2. Left above-knee amputation. 3. Peripheral vascular disease with revascularization angioplasty. 4. Hypertension. 5. Diabetes. 6. Acute change in mental status on top of his chronic dementia. 7. Dementia that seems worsening with medications. 8. Feeding tube insertion due to difficulty dysphagia or impaired swallowing ability due to underlying dementia and worsening by medications. 9. Chronic renal failure. 10. Chronic hepatitis B. 11. Chronic liver disease. 12. Generalized weakness, deconditioning. PLAN: Discharged the patient back to [facility], we will continue hemodialysis. We will increase the feeding to 40 and increased up to 50 mL per hour. Monitor fluid status and monitor his vital signs and monitor for any possibility recurrent nosocomial infections as per ID recommendations. The patient seen while he was in the hospital by different consultants; seen by Podiatry consults, Dr. Carlson; seen by Dr. Jed Griffith, Vascular Interventional; Surgery, Dr. Owens; seen by Dr. Huber; Neurology, Dr. Almonte; Infectious Disease, Dr. Lara; Nephrology, Dr. Garcia, Nephrology consult. [facility]. Barber Aguirre MD
--- NOTE | 2017-04-25 18:09 | PROCN ---
DATE: 04/25/2017 CONDITION OF THE RECORDING: Drowsy. DIAGNOSIS: Altered mental status. MEDICATIONS: Reviewed by nurse's reconciliation sheet. INTERPRETATION: This is a 16-channel international recording. The background activity of this recording was composed of 6 to 7 cycles per second. There was small amount of beta activity of 16 to 20 cycles per second seen in this recording. There was increased amount of theta activity of 5 to 7 cycles per second seen in this tracing. Drowsiness was characterized by mixed beta and theta activities. Sleep was characterized by vertex transient waves, sleep spindles, and bilateral slowing. Photic stimulation showed no changes in the tracing. No paroxysmal activity is noted in this recording. CONCLUSION: This is an abnormal electroencephalogram due to presence of diffuse severe slowing throughout the recording consistent with bilateral cerebral dysfunction. No evidence of any epileptiform activity. Please clinically correlate. Oniel Almonte MD
--- NOTE | 2017-04-25 22:29 | OP ---
PROCEDURE DATE: 04/11/2017 PREOPERATIVE DIAGNOSIS: Ischemia, left leg. POSTOPERATIVE DIAGNOSIS: Ischemia, left leg. OPERATION PERFORMED: Left above-knee amputation. SURGEON: Alejandro Joy MD ENCAPSULATOR: resident. DESCRIPTION OF PROCEDURE: In the operating room, the patient was identified by name, name of the procedure, laterality, my hao, the consent. The left leg was prepped out using stockinette and a tourniquet. The leg was sterilely exsanguinated. Tourniquet was inflated to 250 over for about a half an hour. The leg was then placed in its normal position and prepped being in the usual manner. After successful timeout, the leg was then unwrapped exposing the above the knee site where the hao was seen. A fishmouth was made in a gentle curve anteriorly and posteriorly and this was dissected down to the fascia circumferentially. The fascia was debrided followed by the muscle circumferentially. The bone was eventually found and it was peeled up and debrided with the saw and beveled anteriorly using the saw very nicely. The artery was identified, clamped and tied as well as the vein. The nerve was then freed up and high ligation with a clamp and tie. Tourniquet was let down, exposing some bleeders that were cauterized or suture ligated depending on its size, and the patient moved forward very nicely. The incision was closed with deep Vicryl over a Kodi and a On-Q, and the skin was closed with geronimo. The patient was taken to recovery room in good condition after the sponge and needle counts were declared correct. Alejandro Joy MD
== END 2017-04-22 13:42 | DRG 270 ==
LOC: ED 16:17 → ERH 17:26 → 3RNO 18:57 → 2RSO 04-03 18:19 → 5RNO 04-04 11:27
PROVIDERS: ADMIT Internal Medicine; ATTEND Internal Medicine
PROC: 3E03328 Introduction of Oxazolidinones into Peripheral Vein, Percutaneous Approach (ICD-10-PCS; 2017-03-30)
PROC: 30233N1 Transfusion of Nonautologous Red Blood Cells into Peripheral Vein, Percutaneous Approach (ICD-10-PCS; 2017-03-31)
PROC: 5A1D70Z Performance of Urinary Filtration, Intermittent, Less than 6 Hours Per Day (ICD-10-PCS; 2017-03-31)
PROC: 05H533Z Insertion of Infusion Device into Right Subclavian Vein, Percutaneous Approach (ICD-10-PCS; 2017-04-02)
PROC: B546ZZA Ultrasonography of Right Subclavian Vein, Guidance (ICD-10-PCS; 2017-04-02)
PROC: 04CU3ZZ Extirpation of Matter from Left Peroneal Artery, Percutaneous Approach (ICD-10-PCS; 2017-04-03)
PROC: 047S3ZZ Dilation of Left Posterior Tibial Artery, Percutaneous Approach (ICD-10-PCS; 2017-04-03)
PROC: 047U3ZZ Dilation of Left Peroneal Artery, Percutaneous Approach (ICD-10-PCS; 2017-04-03)
PROC: 04CS3ZZ Extirpation of Matter from Left Posterior Tibial Artery, Percutaneous Approach (ICD-10-PCS; 2017-04-03)
PROC: B41DYZZ Fluoroscopy of Aorta and Bilateral Lower Extremity Arteries using Other Contrast (ICD-10-PCS; 2017-04-03)
PROC: 0JBR0ZZ Excision of Left Foot Subcutaneous Tissue and Fascia, Open Approach (ICD-10-PCS; 2017-04-05)
PROC: 0Y6D0Z1 Detachment at Left Upper Leg, High, Open Approach (ICD-10-PCS; principal; 2017-04-11 14:00)
PROC: 3E0G76Z Introduction of Nutritional Substance into Upper GI, Via Natural or Artificial Opening (ICD-10-PCS; 2017-04-15)
PROC: 0DH67UZ Insertion of Feeding Device into Stomach, Via Natural or Artificial Opening (ICD-10-PCS; 2017-04-15)
PROC: 3E0F7GC Introduction of Other Therapeutic Substance into Respiratory Tract, Via Natural or Artificial Opening (ICD-10-PCS; 2017-04-16)
PROC: 0DH63UZ Insertion of Feeding Device into Stomach, Percutaneous Approach (ICD-10-PCS; 2017-04-20)
DX: E11.52 Type 2 diabetes mellitus with diabetic peripheral angiopathy with gangrene (principal); I70.262 Atherosclerosis of native arteries of extremities with gangrene, left leg; N18.6 End stage renal disease; A41.9 Sepsis, unspecified organism; J18.9 Pneumonia, unspecified organism; G92 Toxic encephalopathy; I12.0 Hypertensive chronic kidney disease with stage 5 chronic kidney disease or end stage renal disease; D62 Acute posthemorrhagic anemia; M86.8X7 Other osteomyelitis, ankle and foot; L97.429 Non-pressure chronic ulcer of left heel and midfoot with unspecified severity; B18.1 Chronic viral hepatitis B without delta-agent; F03.91 Unspecified dementia, unspecified severity, with behavioral disturbance; N25.81 Secondary hyperparathyroidism of renal origin; L12.0 Bullous pemphigoid; L97.419 Non-pressure chronic ulcer of right heel and midfoot with unspecified severity; L03.116 Cellulitis of left lower limb; I85.00 Esophageal varices without bleeding; K92.1 Melena; E11.42 Type 2 diabetes mellitus with diabetic polyneuropathy; E11.22 Type 2 diabetes mellitus with diabetic chronic kidney disease; D69.59 Other secondary thrombocytopenia; E11.621 Type 2 diabetes mellitus with foot ulcer; K31.84 Gastroparesis; E83.52 Hypercalcemia; K29.70 Gastritis, unspecified, without bleeding; K29.80 Duodenitis without bleeding; Z99.2 Dependence on renal dialysis; G40.909 Epilepsy, unspecified, not intractable, without status epilepticus; M62.81 Muscle weakness (generalized); D63.1 Anemia in chronic kidney disease; M89.9 Disorder of bone, unspecified; I25.10 Atherosclerotic heart disease of native coronary artery without angina pectoris; E83.119 Hemochromatosis, unspecified; B18.2 Chronic viral hepatitis C; J44.9 Chronic obstructive pulmonary disease, unspecified; E11.43 Type 2 diabetes mellitus with diabetic autonomic (poly)neuropathy; E78.00 Pure hypercholesterolemia, unspecified; E87.6 Hypokalemia; E11.69 Type 2 diabetes mellitus with other specified complication; B95.62 Methicillin resistant Staphylococcus aureus infection as the cause of diseases classified elsewhere; B95.2 Enterococcus as the cause of diseases classified elsewhere; K74.69 Other cirrhosis of liver; B96.4 Proteus (mirabilis) (morganii) as the cause of diseases classified elsewhere; K25.7 Chronic gastric ulcer without hemorrhage or perforation; R13.12 Dysphagia, oropharyngeal phase; Y95 Nosocomial condition; K59.09 Other constipation; Z79.4 Long term (current) use of insulin; Z85.528 Personal history of other malignant neoplasm of kidney; Z86.73 Personal history of transient ischemic attack (TIA), and cerebral infarction without residual deficits; Z90.5 Acquired absence of kidney; Z74.01 Bed confinement status; Z79.82 Long term (current) use of aspirin; Z79.899 Other long term (current) drug therapy; Z87.891 Personal history of nicotine dependence

== ENCOUNTER 2017-06-06 21:55 | Inpatient (IN) | payer MEDICARE, BC ==
[2017-06-06 22:03] VITALS: BMI 22.1
--- NOTE | 2017-06-06 22:38 | ED PDOC ---
Arrival/HPI - General Chief Complaint: Abnormal Skin Integrity Time Seen by Provider: 06/06/17 22:13 Historian: Long-Term - History of Present Illness Narrative History of Present Illness (Text): 06/06/17 22:37 A 76 year old male, whose past medical history includes dementia, ESRD, hypertension, diabetes and peripheral vascular disease, was brought in by EMS to the emergency department for evaluation of right leg infection. Patient is unable to speak, [facility] obtained [facility]. Patient has left above knee amputation and open sore on right leg, appears to be gangrenous. Patient was seen by Dr. Jed Griffith in [facility] on 06/05/17, who stated gangrene and needs right above knee amputation for pain relief, infection relief, revascularization won' t help. Symptom Onset: Sudden Symptom Course: Unchanged Activities at Onset: Rest Context: Other (alf) Past Medical History - Provider Review Nursing Documentation Reviewed: Yes - Past History Past History: No Previous - Infectious Disease Hx of Infectious Diseases: None - Tetanus Immunization Tetanus Immunization: Unknown - Cardiac Hx Hypertension: Yes - Pulmonary Hx Chronic Obstructive Pulmonary Disease (COPD): Yes - Neurological HX Cerebrovascular Accident: Yes Hx Dementia: Yes - HEENT Hx HEENT Disorder: No (WEARS RX GLASSES) - Renal Hx Dialysis: Yes Type of Dialysis Access: L AV shunt Date of Last Dialysis Treatment: 06/05/17 Hx Renal Failure: Yes (wiht hemodialysis) - Endocrine/Metabolic Hx Diabetes Mellitus Type 2: Yes - Hematological/Oncological Hx Blood Transfusions: Yes Hx Blood Transfusion Reaction: No - Integumentary Hx Dermatological Disorder: Yes (Bullous pemphigoid) - Musculoskeletal/Rheumatological Hx Arthritis: Yes - Gastrointestinal Hx Gastrointestinal Disorders: Yes Hx Crohn's Disease: No Hx Diverticulitis: No Hx Gall Bladder Disease: No Hx Pancreatitis: No Other/Comment: + gtube - Genitourinary/Gynecological Hx Sexually Transmitted Diseases: No - Psychiatric Hx Anxiety: No Hx Bipolar Disorder: No Hx Depression: No Hx Post Traumatic Stress Disorder: No Hx Schizophrenia: No Hx Substance Use: No - Surgical History Hx Mastectomy: No - Anesthesia Hx Anesthesia Reactions: No Hx Malignant Hyperthermia: No - Suicidal Assessment Feels Threatened In Home Enviroment: No Family/Social History - Physician Review Nursing Documentation Reviewed: Yes Family/Social History: No Known Family HX Smoking Status: Never Smoked Hx Alcohol Use: No Hx Substance Use: No Hx Substance Use Treatment: No Allergies/Home Meds Allergies/Adverse Reactions: Allergies No Known Allergies Allergy (Verified 03/30/17 16:29) Home Medications: Home Meds Medication Instructions Recorded Confirmed Amino AC/Protein Hydr/Whey Pro 30 ml GT DAILY 06/06/17 06/06/17 [Prosource Plus Liquid Packet] Carvedilol [Coreg] 1 tab GT BID 06/06/17 06/06/17 Cinacalcet [Sensipar] 1 cap GT DAILY 06/06/17 06/06/17 Donepezil [Aricept] 1 tab GT HS 06/06/17 06/06/17 Heparin [Heparin] 1 vial SC Q12H 06/06/17 06/06/17 Hydralazine HCl [Hydralazine HCl] 1 tab GT TID 06/06/17 06/06/17 Pregabalin [Lyrica] 1 cap GT TID 06/06/17 06/06/17 Silver Sulfadiazine [Silvadene] 1 appl TOP MWF 06/06/17 06/06/17 Valsartan [Diovan] 1 tab GT DAILY 06/06/17 06/06/17 Vitamin B Complex [Super B-50 1 cap GT DAILY 06/06/17 06/06/17 Complex] amLODIPine [Norvasc] 1 tab GT DAILY 06/06/17 06/06/17 Review of Systems - Physician Review All systems were reviewed & negative as marked: Yes - Review of Systems Constitutional: absent: Fevers Skin: Other (right leg open sore, infection) Physical Exam Vital Signs Reviewed: Yes Vital Signs Temp Pulse Resp BP Pulse Ox 06/07/17 10:31 65 17 143/55 L 97 06/07/17 06:19 63 16 153/56 H 95 06/07/17 03:35 62 18 151/60 H 95 06/07/17 00:00 71 18 148/56 L 100 06/06/17 22:32 98.6 F 70 20 135/51 L 100 Temperature: Afebrile Blood Pressure: Hypotensive Pulse: Regular Respiratory Rate: Normal Appearance: Positive for: Well-Appearing, Non-Toxic, Comfortable Pain Distress: None Mental Status: Positive for: Alert and Oriented X 3 - Systems Exam Head: Present: Atraumatic, Normocephalic Pupils: Present: PERRL Extroacular Muscles: Present: EOMI Conjunctiva: Present: Normal Mouth: Present: Moist Mucous Membranes Neck: Present: Normal Range of Motion Respiratory/Chest: Present: Clear to Auscultation, Good Air Exchange. No: Respiratory Distress, Accessory Muscle Use Cardiovascular: Present: Regular Rate and Rhythm, Normal S1, S2. No: Murmurs Abdomen: Present: Normal Bowel Sounds. No: Tenderness, Distention, Peritoneal Signs Back: Present: Normal Inspection Upper Extremity: Present: Normal Inspection. No: Cyanosis, Edema Lower Extremity: Present: Other (left above knee amputation; right leg, from junction between 1st, 3rd and middle 3rd tib-fib area, down- gangrenous; stage 4 sacral decubitus) Neurological: Present: GCS=15, CN II-XII Intact, Speech Normal Skin: Present: Warm, Dry, Normal Color. No: Rashes Psychiatric: Present: Alert, Oriented x 3, Normal Insight, Normal Concentration Medical Decision Making ED Course and Treatment: 06/06/17 22:36 Impression: A 76 year old male with right leg infection, open sore. Plan: -- EKG -- chest xray -- Urinalysis -- Radiology right foot -- labs -- Reassess and disposition Prior Visits: Notes and results from previous visits were reviewed. Patient was last seen in the emergency department on 03/30/17 for evaluation of left foot and ankle pain, worsening wound. Patient was admitted for further left leg wound care. Progress Notes: 06/07/17 00:43 EKG: Ordered, reviewed, and independently interpreted the EKG. Rate : 73 BPM Rhythm : NSR Interpretation : PACs 06/07/17 03:13 Chest xray: No active disease, as read by me. 06/07/17 03:47 Radiology right foot: No lytic lesions indicative of osteomyelitis, as read by me. - Lab Interpretations I have reviewed the lab results: Yes - RAD Interpretation Radiology Orders: 06/06/17 22:23 CXR [CHEST PORTABLE] [RAD] Stat FOOT RIGHT 3 VIEWS ROUTINE [RAD] Stat - EKG Interpretation Interpreted by ED Physician: Yes Type: 12 lead EKG - Medication Orders Current Medication Orders: Amlodipine Besylate (Norvasc) 10 mg GT DAILY [facility] Carvedilol (Coreg) 6.25 mg GT BID [facility] Cinacalcet (Sensipar) 30 mg PO DAILY [facility] Donepezil HCl (Aricept) 10 mg GT HS [facility] Linezolid (Zyvox 600mg/300ml D5w) 600 mg in 300 mls @ 200 mls/hr IVPB Q12 [facility] PRN Reason: Protocol Stop: 06/14/17 10:01 Last Admin: 06/07/17 12:05 Dose: 200 mls/hr eMAR Start Stop Document 06/07/17 12:05 LMN (Rec: 06/07/17 12:05 LMN [id number]) Intravenous Solution Start Date 06/07/17 Start Time 12:05 Ampicillin Sodium/Sulbactam (Sodium 3 gm/ Sodium Chloride) 100 mls @ 200 mls/ hr IVPB Q12H [facility] PRN Reason: Protocol Last Admin: 06/07/17 18:35 Dose: 200 mls/hr eMAR Start Stop Document 06/07/17 18:35 LMN (Rec: 06/07/17 18:57 LMN [id number]) Intravenous Solution Start Date 06/07/17 Start Time 18:35 Non-Formulary Medication (Amino Ac/Protein Hydr/Whey Pro [Prosource Plus Liquid Packet]) 30 ml GT DAILY [facility] Non-Formulary Medication (Hydralazine Hcl [Hydralazine Hcl]) 1 tab GT TID [facility] Non-Formulary Medication (Vitamin B Complex [Super B-50 Complex]) 1 cap GT DAILY [facility] Pregabalin (Lyrica) 50 mg GT TID [facility] Silver Sulfadiazine (Silvadene 1% 25 Gm) 0 gm TP MWF [facility] Valsartan (Diovan) 320 mg GT DAILY [facility] Discontinued Medications Amlodipine Besylate (Norvasc) 1 mg GT DAILY [facility] Cinacalcet (Sensipar) 1 mg PO DAILY [facility] Ampicillin Sodium/Sulbactam (Sodium 3 gm/ Sodium Chloride) 100 mls @ 200 mls/ hr IVPB Q6 [facility] PRN Reason: Protocol - PA / KNITTER MECHANIC / Resident Statement MD/DO has reviewed & agrees with the documentation as recorded. - Scribe Statement The provider has reviewed the documentation as recorded by the Seraibjitendra Wilson Provider Scribe Attestation: All medical record entries made by the Scribe were at my direction and personally dictated by me. I have reviewed the chart and agree that the record accurately reflects my personal performance of the history, physical exam, medical decision making, and the department course for this patient. I have also personally directed, reviewed, and agree with the discharge instructions and disposition. Disposition/Present on Arrival - Present on Arrival Any Indicators Present on Arrival: Yes History of DVT/PE: No History of Uncontrolled Diabetes: Yes Urinary Catheter: No History of Decub. Ulcer: Yes (sacral ulcer) History Surgical Site Infection Following: None - Disposition Have Diagnosis and Disposition been Completed?: Yes Diagnosis: Gangrene of right foot, ESRD (end stage renal disease), HTN (hypertension), Decubitus ulcer of back, stage 4 Disposition: HOSPITALIZED Disposition Time: 23:00 Patient Plan: Admission Condition: FAIR
[2017-06-06 23:20] LABS: EOS % 5.1 % (1.5-5.0); GRAN % 67.2 % (50.0-68.0); MEAN CELL VOLUME 81.3 fl (80.0-105.0); MEAN CORPUSCULAR HEMOGLOBIN 25.2 pg (25.0-35.0); MEAN PLATELET VOLUME 10.4 fl (7.0-11.0); MONO % 9.3 % (1.0-6.0); RBC 3.05 10^6/uL (3.5-6.1); RED CELL DISTRIBUTION WIDTH 18.2 % (11.5-14.5); WHITE BLOOD COUNT 10.7 10^3/ul (4.5-11.0)
[2017-06-06 23:21] LABS: BASO # 0.04 K/mm3 (0.0-2.0); BASO % 0.4 % (0.0-3.0); EOS # 0.6 (0.0-0.7); GRAN # 7.19 (1.4-6.5); LYMPH # 1.9 (1.2-3.4)
[2017-06-06 23:23] LABS: VENOUS BLOOD GAS BASE EXCESS 6.4 mmol/L (0.0-2.0); VENOUS BLOOD GAS PO2 69 mm/Hg (30-55); VENOUS BLOOD PH 7.43 (7.32-7.43)
[2017-06-06 23:33] LABS: HEMOGLOBIN 7.7 g/dL (14.0-18.0)
[2017-06-06 23:34] LABS: INR 1.21 (0.93-1.08); PROTHROMBIN TIME 13.9 SECONDS (9.4-12.5)
[2017-06-06 23:44] LABS: ALB/GLOB RATIO 0.6 (1.1-1.8); ALBUMIN 2.7 g/dL (3.0-4.8); CALCIUM 9.8 mg/dL (8.4-10.5)
[2017-06-07 00:17] LABS: PH,URINE 8.5 (4.7-8.0); URINE BILIRUBIN NEGATIVE (NEGATIVE); URINE BLOOD NEGATIVE (NEGATIVE); URINE GLUCOSE (UA) NEGATIVE (NEGATIVE); URINE LEUKOCYTE ESTERASE NEGATIVE Leu/uL (NEGATIVE); URINE NITRATE NEGATIVE (NEGATIVE); URINE PROTEIN 100 mg/dL (<30 mg/dL); URINE UROBILINOGEN 0.2 E.U./dL (<1 E.U./dL)
[2017-06-07 00:20] LABS: URINE APPEARANCE CLEAR (CLEAR); URINE COLOR YELLOW (YELLOW)
[2017-06-07 00:36] LABS: URINE EPITHELIAL CELLS 0 - 2 /hpf (0-5); URINE RBC 0 - 2 /hpf (0-2); URINE WBC 0 - 2 /hpf (0-6)
--- NOTE | 2017-06-07 10:31 | RAD ---
HISTORY: PREOP COMPARISON: 04/18/2017 FINDINGS: LUNGS: No infiltrate. Granulomatous calcifications throughout both upper lobes. Left-sided patchy opacities have resolved. PLEURA: No significant pleural effusion identified, no pneumothorax apparent. CARDIOVASCULAR: Normal. OSSEOUS STRUCTURES: No significant abnormalities. VISUALIZED UPPER ABDOMEN: Normal. OTHER FINDINGS: None. IMPRESSION: Extensive granulomatous calcifications. No acute infiltrate.
--- NOTE | 2017-06-07 10:36 | RAD ---
PROCEDURE: Right Foot Radiographs. HISTORY: OSTEOMYELITIS? COMPARISON: None. FINDINGS: BONES: No osseous fracture. No osseous erosion or periosteal reaction appreciated. JOINTS: Normal. SOFT TISSUES: Vascular calcifications are noted. OTHER FINDINGS: None. IMPRESSION: No plain radiographic evidence of osteomyelitis.
[2017-06-07] MEDS: Linezolid 600 mg in D5W 300 ml 600 MG/300 ML BAG IVPB SCH ×2 (12:05→21:56)
--- NOTE | 2017-06-07 12:13 | CP.PCM.CON ---
History of Present Illness - History of Present Illness History of Present Illness: GENERAL SURGERY CONSULT NOTE FOR DR. SANCHEZ 76 year old male with PMHx of dementia, ESRD, HTN, Diabetes, Right heel MRSA and PVD presents for evaluation of right leg infection. Patient is non-verbal so information was obtained by chart review. Per ER note; patient was seen by Dr. Jed Griffith in the residential on 06/05/17 and he stated that patient would need right above the knee amputation for pain/infection relief and that revascularizaton won't help. General surgery consulted for evaluation and treatment of right lower extremity infection/gangrene. PMHx: Dementia, ESRD, HTN, Diabetes, Right heel MRSA PVD, chronic Hep B, kidney mass PSHx: Left AKA, nephrectomy. Allergies: NKDA Meds: Reviewed Review of Systems - Review of Systems Systems not reviewed;Unavailable: Dementia Review of Systems: As per HPI Past Patient History - Infectious Disease Hx of Infectious Diseases: None - Tetanus Immunizations Tetanus Immunization: Unknown - Past Medical History & Family History Past Medical History?: Yes - Past Social History Smoking Status: Never Smoked - CARDIAC Hx Hypertension: Yes - PULMONARY Hx Chronic Obstructive Pulmonary Disease (COPD): Yes - NEUROLOGICAL HX Cerebrovascular Accident: Yes Hx Dementia: Yes - HEENT Hx HEENT Problems: No (WEARS RX GLASSES) - RENAL Hx Dialysis: Yes Type of Dialysis Access: L AV shunt Date of Last Dialysis Treatment: 06/05/17 Hx Renal Failure: Yes (wiht hemodialysis) - ENDOCRINE/METABOLIC Hx Diabetes Mellitus Type 2: Yes - HEMATOLOGICAL/ONCOLOGICAL Hx Blood Transfusions: Yes Hx Blood Transfusion Reaction: No - INTEGUMENTARY Hx Dermatological Problems: Yes (Bullous pemphigoid) - MUSCULOSKELETAL/RHEUMATOLOGICAL Hx Arthritis: Yes - GASTROINTESTINAL Hx Gastrointestinal Disorders: Yes Hx Crohn's Disease: No Hx Diverticulitis: No Hx Gall Bladder Disease: No Hx Pancreatitis: No Other/Comment: + gtube - GENITOURINARY/GYNECOLOGICAL Hx Sexually Transmitted Disorders: No - PSYCHIATRIC Hx Anxiety: No Hx Bipolar Disorder: No Hx Depression: No Hx Post Traumatic Stress Disorder: No Hx Schizophrenia: No Hx Substance Use: No - SURGICAL HISTORY Hx Mastectomy: No - ANESTHESIA Hx Anesthesia Reactions: No Hx Malignant Hyperthermia: No Meds Allergies/Adverse Reactions: Allergies Allergy/AdvReac Type Severity Reaction Status Date / Time No Known Allergies Allergy Verified 12/01/17 16:29 - Medications Medications: Current Medications Amlodipine Besylate (Norvasc) 10 mg GT DAILY [facility] Carvedilol (Coreg) 6.25 mg GT BID [place] Cinacalcet (Sensipar) 30 mg PO DAILY [place] Donepezil HCl (Aricept) 10 mg GT HS [place] Ampicillin Sodium/Sulbactam (Sodium 3 gm/ Sodium Chloride) 100 mls @ 200 mls/ hr IVPB Q6 [place] PRN Reason: Protocol Linezolid (Zyvox 600mg/300ml D5w) 600 mg in 300 mls @ 200 mls/hr IVPB Q12 [place] PRN Reason: Protocol Stop: 06/14/17 10:01 Last Admin: 06/07/17 12:05 Dose: 200 mls/hr Non-Formulary Medication ([place] Ac/Protein Hydr/Whey Pro [Prosource Plus Liquid Packet]) 30 ml GT DAILY [place] Non-Formulary Medication (Hydralazine Hcl [Hydralazine Hcl]) 1 tab GT TID [place] Non-Formulary Medication (Vitamin B Complex [Super B-50 Complex]) 1 cap GT DAILY [place] Pregabalin (Lyrica) 50 mg GT TID [place] Silver Sulfadiazine (Silvadene 1% 25 Gm) gm TP MWF [place] Valsartan (Diovan) 320 mg GT DAILY [facility] Physical Exam - Constitutional Appears: Non-toxic, No Acute Distress, Older Than Stated Age - Head Exam Head Exam: ATRAUMATIC - Eye Exam Eye Exam: Normal appearance - ENT Exam ENT Exam: Mucous Membranes Moist - Respiratory Exam Respiratory Exam: Clear to Auscultation Bilateral, NORMAL BREATHING PATTERN. absent: Accessory Muscle Use, Rhonchi, Wheezes - Cardiovascular Exam Cardiovascular Exam: RRR, +S1, +S2 - GI/Abdominal Exam GI & Abdominal Exam: Normal Bowel Sounds, Soft. absent: Tenderness - Extremities Exam Additional comments: Left sided AKA Right Distal Lower Ext: multiple open sores, multiples areas of gangrene. No drainage, fluctulence, or erythema. Palpable Popliteal pulse No Dorsalis pedis/Posterior tibialis pulse by palpation/Doppler. Warm to touch. - Neurological Exam Neurological exam: Altered - Psychiatric Exam Psychiatric exam: Flat Affect Results - Vital Signs Recent Vital Signs: Last Vital Signs Temp 98.6 F 06/06/17 22:32 Pulse 65 06/07/17 10:31 Resp 17 06/07/17 10:31 BP 143/55 L 06/07/17 10:31 Pulse Ox 97 06/07/17 10:31 - Labs Result Diagrams: 06/06/17 23:13 06/06/17 23:13 Labs: Laboratory Results - last 24 hr 06/06/17 06/06/17 06/06/17 22:55 23:13 23:13 WBC 10.7 D RBC 3.05 L Hgb 7.7 L Hct 24.8 L MCV 81.3 D MCH 25.2 MCHC 31.0 RDW 18.2 H Plt Count 166 MPV 10.4 Gran % 67.2 Lymph % (Auto) 18.0 L [place] % (Auto) 9.3 H Eos % (Auto) 5.1 H Baso % (Auto) 0.4 Gran # 7.19 H Lymph # (Auto) 1.9 [place] # (Auto) 1.0 H Eos # (Auto) 0.6 Baso # (Auto) 0.04 ESR 145 H PT 13.9 H INR 1.21 H pO2 VBG pH VBG pCO2 VBG HCO3 VBG Total CO2 VBG O2 Sat (Calc) VBG Base Excess VBG Potassium Sodium Chloride Glucose Lactate FiO2 Potassium Carbon Dioxide Anion Gap BUN Creatinine Est GFR ( Amer) Est GFR (Non-Af Amer) Random Glucose Calcium Total Bilirubin AST ALT Alkaline Phosphatase Total Protein Albumin Globulin Albumin/Globulin Ratio Venous Blood Potassium Urine Color Urine Appearance Urine pH Ur Specific [place] Urine Protein Urine Glucose (UA) Urine Ketones Urine Blood Urine Nitrate Urine Bilirubin Urine Urobilinogen Ur Leukocyte Esterase Urine RBC Urine WBC Ur Epithelial Cells Blood Type O POSITIVE Antibody Screen Negative Crossmatch See Detail BBK History Checked Patient has bt 06/06/17 06/06/17 06/06/17 23:13 23:13 23:48 WBC RBC Hgb Hct MCV MCH MCHC RDW Plt Count MPV Gran % Lymph % (Auto) [place] % (Auto) Eos % (Auto) Baso % (Auto) Gran # Lymph # (Auto) [place] # (Auto) Eos # (Auto) Baso # (Auto) ESR PT INR pO2 69 H VBG pH 7.43 VBG pCO2 48.0 VBG HCO3 31.9 H VBG Total CO2 33.4 H VBG O2 Sat (Calc) 96.9 H VBG Base Excess 6.4 H VBG Potassium 4.4 Sodium 134.0 135 Chloride 100.0 96 L Glucose 116 H Lactate 0.7 FiO2 21.0 Potassium 4.3 Carbon Dioxide 31 Anion Gap 13 BUN 72 H Creatinine 2.9 H Est GFR ( Amer) 26 Est GFR (Non-Af Amer) 21 Random Glucose 114 H Calcium 9.8 Total Bilirubin 0.2 AST 56 ALT 45 Alkaline Phosphatase 155 H Total Protein 7.5 Albumin 2.7 L Globulin 4.8 Albumin/Globulin Ratio 0.6 L Venous Blood Potassium 4.4 Urine Color Yellow Urine Appearance Clear Urine pH 8.5 Ur Specific [place] 1.015 Urine Protein 100 H Urine Glucose (UA) Negative Urine Ketones Negative Urine Blood Negative Urine Nitrate Negative Urine Bilirubin Negative Urine Urobilinogen 0.2 Ur Leukocyte Esterase Negative Urine RBC 0 - 2 Urine WBC 0 - 2 Ur Epithelial Cells 0 - 2 Blood Type Antibody Screen Crossmatch BBK History Checked Assessment & Plan - Assessment and Plan (Free Text) Assessment: 76 year old male with right leg infection, gangrene, and open sores. Right Foot Xray - No evidence of Osteomyelitis Plan: Will plan for right AKA on Sunday (06/11/17) IV antibiotics Medical optimization Cardiac clearance Further Recs as per Dr. Sanchez. Marissa Beauchamp, PGY1
[2017-06-07 15:06] LABS: BASO # 0.02 K/mm3 (0.0-2.0); BASO % 0.4 % (0.0-3.0); EOS # 0.1 (0.0-0.7); EOS % 2.8 % (1.5-5.0); GRAN # 3.87 (1.4-6.5); GRAN % 77.2 % (50.0-68.0); LYMPH # 0.9 (1.2-3.4); LYMPH % 17.8 % (22.0-35.0); MEAN CORPUSCULAR HEMOGLOBIN 24.5 pg (25.0-35.0); MEAN CORPUSCULAR HGB CONC 30.2 g/dl (31.0-37.0); MEAN PLATELET VOLUME 10.3 fl (7.0-11.0); MONO # 0.1 (0.1-0.6); MONO % 1.8 % (1.0-6.0); RBC 3.06 10^6/uL (3.5-6.1); RED CELL DISTRIBUTION WIDTH 18.2 % (11.5-14.5)
[2017-06-07 15:08] LABS: HEMOGLOBIN 7.5 g/dL (14.0-18.0)
[2017-06-07 15:47] LABS: ALB/GLOB RATIO 0.6 (1.1-1.8); ALBUMIN 2.6 g/dL (3.0-4.8); CALCIUM 9.7 mg/dL (8.4-10.5)
--- NOTE | 2017-06-07 18:10 | CP.PCM.CON ---
History of Present Illness - History of Present Illness History of Present Illness: 76 year old male with PMH of HTN, DM, dyslipidemia, ESRD on HD, renal cancer S/ P partial nephrectomy, history of bilateral gangrenous heel ulcers S/P debridement, growing MRSA, PRoteus and E. faecalis; there is evidence of osteomyelitis on MRI of the left heel (calcaneus) was brought in [place] [facility] [place] of gangrene on the right lower extremity and was seen by physicians in the custodial, who thought the patient may need amputation. There is no note of fever, no convulsions, no loss of consciousness, no diarrhea. Full ROS is unobtainable because of the patient's dementia. Infectious Diseases consult is requested to further evaluate and manage. Review of Systems - Review of Systems Systems not reviewed;Unavailable: Dementia Past Patient History - Infectious Disease Hx of Infectious Diseases: None - Tetanus Immunizations Tetanus Immunization: Unknown - Past Medical History & Family History Past Medical History?: Yes - Past Social History Smoking Status: Never Smoked - CARDIAC Hx Hypertension: Yes - PULMONARY Hx Chronic Obstructive Pulmonary Disease (COPD): Yes - NEUROLOGICAL HX Cerebrovascular Accident: Yes Hx Dementia: Yes - HEENT Hx HEENT Problems: No (WEARS RX GLASSES) - RENAL Hx Dialysis: Yes Type of Dialysis Access: L AV shunt Date of Last Dialysis Treatment: 06/05/17 Hx Renal Failure: Yes (wiht hemodialysis) - ENDOCRINE/METABOLIC Hx Diabetes Mellitus Type 2: Yes - HEMATOLOGICAL/ONCOLOGICAL Hx Blood Transfusions: Yes Hx Blood Transfusion Reaction: No - INTEGUMENTARY Hx Dermatological Problems: Yes (Bullous pemphigoid) - MUSCULOSKELETAL/RHEUMATOLOGICAL Hx Arthritis: Yes - GASTROINTESTINAL Hx Gastrointestinal Disorders: Yes Hx Crohn's Disease: No Hx Diverticulitis: No Hx Gall Bladder Disease: No Hx Pancreatitis: No Other/Comment: + gtube - GENITOURINARY/GYNECOLOGICAL Hx Sexually Transmitted Disorders: No - PSYCHIATRIC Hx Anxiety: No Hx Bipolar Disorder: No Hx Depression: No Hx Post Traumatic Stress Disorder: No Hx Schizophrenia: No Hx Substance Use: No - SURGICAL HISTORY Hx Mastectomy: No - ANESTHESIA Hx Anesthesia Reactions: No Hx Malignant Hyperthermia: No Meds Allergies/Adverse Reactions: Allergies Allergy/AdvReac Type Severity Reaction Status Date / Time No Known Allergies Allergy Verified 03/30/17 16:29 Physical Exam - Constitutional Appears: Chronically Ill - Head Exam Head Exam: NORMAL INSPECTION - ENT Exam ENT Exam: Mucous Membranes Moist - Neck Exam Neck exam: Negative for: Meningismus - Respiratory Exam Respiratory Exam: Decreased Breath Sounds - Cardiovascular Exam Cardiovascular Exam: +S1, +S2 - GI/Abdominal Exam GI & Abdominal Exam: Soft. absent: Tenderness - Extremities Exam Additional comments: right leg with dressings in place Results - Vital Signs Recent Vital Signs: Last Vital Signs Temp 98.6 F 06/06/17 22:32 Pulse 70 06/06/17 22:32 Resp 20 06/06/17 22:32 BP 135/51 L 06/06/17 22:32 Pulse Ox 100 06/06/17 22:32 - Labs Result Diagrams: 06/07/17 14:30 06/07/17 14:30 Labs: Laboratory Results - last 24 hr 06/06/17 06/06/17 06/06/17 23:13 23:13 23:13 WBC 10.7 D RBC 3.05 L Hgb 7.7 L Hct 24.8 L MCV 81.3 D MCH 25.2 MCHC 31.0 RDW 18.2 H Plt Count 166 MPV 10.4 Gran % 67.2 Lymph % (Auto) 18.0 L [place] % (Auto) 9.3 H Eos % (Auto) 5.1 H Baso % (Auto) 0.4 Gran # 7.19 H Lymph # (Auto) 1.9 [place] # (Auto) 1.0 H Eos # (Auto) 0.6 Baso # (Auto) 0.04 PT 13.9 H INR 1.21 H pO2 69 H VBG pH 7.43 VBG pCO2 48.0 VBG HCO3 31.9 H VBG Total CO2 33.4 H VBG O2 Sat (Calc) 96.9 H VBG Base Excess 6.4 H VBG Potassium 4.4 Sodium 134.0 Chloride 100.0 Glucose 116 H Lactate 0.7 FiO2 21.0 Potassium Carbon Dioxide Anion Gap BUN Creatinine Est GFR ( Amer) Est GFR (Non-Af Amer) Random Glucose Calcium Total Bilirubin AST ALT Alkaline Phosphatase Total Protein Albumin Globulin Albumin/Globulin Ratio Venous Blood Potassium 4.4 06/06/17 23:13 WBC RBC Hgb Hct MCV MCH MCHC RDW Plt Count MPV Gran % Lymph % (Auto) [place] % (Auto) Eos % (Auto) Baso % (Auto) Gran # Lymph # (Auto) [place] # (Auto) Eos # (Auto) Baso # (Auto) PT INR pO2 VBG pH VBG pCO2 VBG HCO3 VBG Total CO2 VBG O2 Sat (Calc) VBG Base Excess VBG Potassium Sodium 135 Chloride 96 L Glucose Lactate FiO2 Potassium 4.3 Carbon Dioxide 31 Anion Gap 13 BUN 72 H Creatinine 2.9 H Est GFR ( Amer) 26 Est GFR (Non-Af Amer) 21 Random Glucose 114 H Calcium 9.8 Total Bilirubin 0.2 AST 56 ALT 45 Alkaline Phosphatase 155 H Total Protein 7.5 Albumin 2.7 L Globulin 4.8 Albumin/Globulin Ratio 0.6 L Venous Blood Potassium Assessment & Plan - Assessment and Plan (Free Text) Plan: Assessment right foot gangrene R/O osteomyelitis bilateral gangrenous heel ulcers S/P debridement, growing MRSA, PRoteus and E. faecalis; there is evidence of osteomyelitis on MRI of the left heel (calcaneus) change in sensorium, etiology to be determined Possible hemochromatosis DM HTN dyslipidemia ESRD on HD renal cancer S/P partial nephrectomy hepatitis B and C infection history of bullous pemphigoid CAD Plan based on previous cultures, we have started Zyvox and Unasyn and will follow up wound cx, blood cx and plan for surgery will continue to monitor clinically overall prognosis is poor
--- NOTE | 2017-06-07 18:11 | CARD ---
APPROVED REPORT EKG Measurement Heart [id number] <Conclusion> Sinus rhythm with premature atrial complexes Septal infarct, age undetermined Abnormal ECG
--- NOTE | 2017-06-07 22:56 | HP ---
CHIEF COMPLAINT: Patient came in because of gangrene, right leg. HISTORY OF PRESENT ILLNESS: This is a 76-year-old male with history of peripheral vascular disease, has chronic leg ulcerations of the right leg, seen by animal nutritionist and seen by Dr. Jed Griffith who recommend surgical amputation because of his poor vascular system, also recommended to above-knee amputation because of his is occluded. According to him, he denied any nausea or vomiting. He does not have any pain even when I ask him. He has no short of breath. No nausea. No vomiting. No fever. No chills. He also had a history recently of left above-knee amputation; it was like more than a month ago; also with gastric tube placement and he is getting his meds through the feeding tube. He has no other complaints. PAST MEDICAL HISTORY: As I mentioned, severe peripheral vascular disease; coronary artery disease; hypertension; neuropathy; diabetes type 2, on diet control; chronic renal failure, on hemodialysis; anemia, he is getting Venofer for that, his hemoglobin has been stable at 7; he did have a history of TIA, change in mental status in the past that seems resolving; and dysphagia. MEDICATION: He takes Silvadene applied Sunday, Sunday, and Sunday locally; vitamin B complex; Sensipar one through the G-tube; ProSource Plus Liquid G-tube daily; Lyrica three times a day; hydralazine three times a day, 100 mg; Diovan 320 once a day; heparin subcu; Coreg b.i.d.; Norvasc 10 mg daily; Aricept 10 mg at bedtime. ALLERGIES: HE HAS NO KNOWN ALLERGIES. SOCIAL HISTORY: He is a prison patient, dialysis patient, bedridden. FAMILY HISTORY: Noncontributory. REVIEW OF SYSTEMS: As in the present illness. PHYSICAL EXAMINATION: VITAL SIGNS: His temperature is 98.6, heart rate is 70, blood pressure is 135/61, respirations 20, and saturating is 100%. HEAD AND NECK: Normal. No JVD. CHEST: Clear. Good air entry. CARDIAC: First sound and second sound are normal. ABDOMEN: Soft. G-tube site is clean. EXTREMITIES: Left above-knee amputation and the right heel is ulcerated and leg has dry gangrene with ulcerations. IMPRESSION: 1. Right leg gangrene sever ischemia requiring amputation, above knee. We will get Dr. Joy for surgical evaluation and Dr. Quiñones's podiatry consult. The only intervention recommended is above knee amputation. 2. Anemia. We will get blood transfusion prior to surgery. Nephrology will get that in to, may be after dialysis, and we will follow up on his hemoglobin and hematocrit. 3. Chronic renal failure, continue hemodynamics. 4. Diabetes, diet controlled. We will give insulin coverage. 5. Hypertension, resume his meds that he was getting in prison. 6. Dementia. 7. History of renal mass. In the past, he refused any surgery. 8. The patient is, otherwise, stable. We will get Dr. Lara in ID consult; Dr. Quiñones in the Podiatry; Dr. Joy in general surgical evaluation for above-knee amputation. Try to reach to Dr. Washington. We will discuss with him about the procedure and the vascular consult. 9. We will repeat lab in the morning. We will followup clinically. We will get cardiac clearance by Dr. Gama and we will followup on a daily basis. Barber Aguirre MD
--- NOTE | 2017-06-07 23:18 | CON ---
DATE: HISTORY OF PRESENT ILLNESS: Parris Cabral is admitted to the emergency room, referred for gangrene, with a history dementia, end-stage renal disease, hypertension, diabetes, peripheral vascular disease, right leg infection, has a left [id number] amputation with an open sore on the right; alf, 06/05; needs right cnuiu-nru-ouat amputation. On multiple medications at home. PHYSICAL EXAMINATION: GENERAL: Remarkable for being afebrile. He is alert, awake, well-appearing, nontoxic, comfortable. VITAL SIGNS: Relatively normal. HEENT: Head normocephalic, atraumatic. Pupils equal. CHEST: Clear. HEART: Without murmur. ABDOMEN: Soft, nontender. No hernias. EXTREMITIES: Upper extremities, normal. Left ngogy-qlw-oaim amputation. Right leg, he has gangrene of the leg and a stage IV sacral decubitus. PLAN: We will discuss and review the arterial studies, but probably need an mdyil-ywp-sacd amputation, I agree. Alejandro Joy MD
--- NOTE | 2017-06-08 01:27 | CON ---
DATE: NEPHROLOGY CONSULTATION HISTORY OF PRESENT ILLNESS: A 76-year-old male with past medical history of hypertension; diabetes; hepatitis B (untreated); dementia; admission in 03/2017 for left foot osteomyelitis with subsequent left AKA; ESRD, on hemodialysis ([facility]), sent from senior living yesterday due to concern for gangrenous right heel; Nephrology being consulted for ESRD care. Patient unable to give any history due to dementia; per notes, patient was seen in senior living 2 days ago for right heel gangrene and it was recommended that patient have right AKA done as revascularization was thought not to be helpful. Patient, otherwise, has been receiving dialysis as per routine; last dialysis was 2 days ago; hemoglobin has been borderline low with patient being on high dose of long-acting erythropoietin-stimulating agent and receiving IV iron loading. PAST MEDICAL HISTORY: As above. Patient also with renal masses bilaterally, but no plan for aggressive treatment due to patient's advanced dementia; hepatitis B that has been untreated; his admission in 02/2017 with altered mental status and left thigh herpes zoster lesion. FAMILY HISTORY: Unable to be obtained. SOCIAL HISTORY: Unable to be obtained. REVIEW OF SYSTEMS: Limited due to patient's dementia. GASTROINTESTINAL: Patient has been n.p.o. and get feeds via PEG tube that was placed on last admission in 03/2017. PHYSICAL EXAMINATION: VITAL SIGNS: This morning, blood pressure 143/55, heart rate 65, respirations 17, temperature 98.6 last night, O2 sat 97% on room air. GENERAL: No distress, only able to say yes to his name, otherwise, not answering any questions. HEENT: Moist mucous membranes. Nonicteric. No cervical lymphadenopathy. RESPIRATORY: Lungs exam limited due to shallow breath, but no respiratory distress. No obvious rales or rhonchi. CARDIOVASCULAR: Heart sounds S1, S2 normal. No murmurs, no gallops, no rubs. GASTROINTESTINAL: Abdomen soft, nondistended, mildly tender. GENITOURINARY: No bladder distention. EXTREMITIES: Mild edema of dependent areas. SKIN: Dry gangrene of right heel, otherwise, no cyanosis. PSYCHIATRIC: Not agitated. NEUROLOGIC: No obvious tremors. LABORATORY DATA: On presentation, CBC: WBC 10.7, hemoglobin 7.7, hematocrit 24.8, platelets 166. Chemistry panel: Sodium 135, potassium 4.3, chloride 96, bicarb 31, BUN 72, creatinine 2.9, glucose 114, calcium 9.8, AST 56, ALT 45, alk phos 155, albumin 2.7. Chest x-ray : On presentation, lungs with granulomatous calcifications. No obvious vascular congestion. ASSESSMENT AND PLAN: 1. End-stage renal disease, on hemodialysis. Patient with relatively stable volume and electrolyte status, last dialysis occurring 2 days ago per routine, dialyzing again today for routine review of goal of 1 liter over 3 hours on 3 K, 2.5 calcium, 30 bicarb, dialysate. 2. Hypertensive end-stage renal disease. Blood pressure currently mildly elevated systolic blood pressures, diastolic pressure on the lower end, currently on amlodipine 10 mg daily, Coreg 6.25 mg b.i.d., losartan 320 mg daily; had also been on hydralazine 100 mg t.i.d. at senior living. We will continue the same antihypertensive regimen; patient is not having any p.o. intake and only getting feeds via gastrotomy tube; therefore, will be cautious with ultrafiltration to avoid hypotension. 3. Chronic kidney disease-mineral bone disorder. Patient with secondary hyperparathyroidism of renal origin, also with hypercalcemia likely due to immobility; on Sensipar 30 mg daily, should continue the same. No need for phosphate binders for now, but we will check phosphorus level. 4. Anemia of end-stage renal disease. Hemoglobin has been difficult to maintain at an adequate level due to multiple comorbidities including renal masses; on max dose of Mirecera (long-acting Epogen) and on IV iron loading at Dialysis Unit; patient getting packed red blood cells transfusion today on hemodialysis; we will continue with EPO dosing while here. 5. Right foot gangrene, concern for impending sepsis with the patient having severe peripheral vascular disease. Patient started on linezolid and ampicillin and sulbactam combination; consider dose reduction for Unasyn to q.12 hours for end-stage renal disease. 6. Dementia. Overall mental status has been declining more progressively lately in the setting of multiple admissions with infectious causes; avoid giving medications that may cause sedation; avoid giving p.r.n. clonidine; should discuss with family regarding comfort measures. 7. Hepatitis B. Patient with known hepatitis B surface antigen positive. No open bleeding wounds currently; however, if patient should have any open wounds, should be on contact isolation in a separate room. Thank you for this consult. We will be following closely. Vincent Garcia MD
--- NOTE | 2017-06-08 02:16 | CON ---
DATE: 06/07/2017 SERVICE: Cardiology. PHYSICIAN: Ulysses Flaherty MD REASON FOR CONSULTATION: Preoperative evaluation, risk stratification for possible amputation, right BKA for right foot gangrene. BRIEF CLINICAL HISTORY: This is a 76-year-old male with past medical history of end-stage renal disease, peripheral arterial disease, gangrene of left foot, status post amputation, history of end-stage renal disease on dialysis, history of hepatitis, history of now right foot gangrene, admitted for possible requiring amputation. Cardiology consult was called for preoperative evaluation and risk stratification. The patient is a very poor historian. Denies any chest pain, shortness of breath, any palpitation. PAST MEDICAL HISTORY: Significant for chronic renal insufficiency, end-stage renal disease, on dialysis. History of hepatitis B, history of nephrectomy, solitary kidney and possible mass, history of dementia, history of debridement, history of gangrene of the left foot status post amputation, AKA left, now with gangrene of the right foot, history of hypertension, hyperlipidemia. SOCIAL HISTORY: Denies any history of alcohol abuse. CURRENT MEDICATIONS: The patient is taking home valsartan 320 mg, Tylenol, Silvadene cream, Risperdal, multivitamin, B complex, hydralazine, Aricept, heparin, clonidine, Sensipar, and aspirin plus dialysis. ALLERGIES: NO KNOWN DRUG ALLERGY. The patient had previous cardiac workup as follows: The patient had echocardiography done by Dr. Moses, 09/30/2012, ejection fraction 78% and normal LV function. Grade diastolic dysfunction. No regional wall motion abnormality. Calculated ejection fraction 65% to 70%, normal RV, no valvular regurgitation noted. EKG shows normal sinus, first-degree AV block. No acute ST-T changes noted. The patient's last echo here in the hospital done at [facility] on 04/03/2017 that showed ejection fraction 65%, trace mitral regurgitation, trace tricuspid regurgitation, RV systolic pressure 37, dated 04/03/2017. REVIEW OF SYSTEMS: As per HPI. The patient denies any chest pain, shortness of breath, any palpitations except per HPI. PHYSICAL EXAMINATION: As follows: VITAL SIGNS: Temperature afebrile, heart rate 65, blood pressure 143/55. LABORATORY DATA: Blood workup: WBC 5, hemoglobin 7.5, hematocrit 24.8, platelet count 115. Chemistry shows sodium 135, potassium 4.3, chloride 96, carbon dioxide 31, anion gap of 13, BUN 72, creatinine 2.9. IMPRESSION: Anemia, diabetes, hypertension, hyperlipidemia, end-stage renal disease on dialysis, dementia, peripheral arterial disease status post left above knee amputation, gangrene of the right foot, for possible below knee amputation of the right foot. History of most recent echo on 04/03/2017 shows preserved ejection fraction of 65%, trace mitral and trace tricuspid regurgitation. RECOMMENDATIONS: The patient is high risk for any procedure, but given the risk-benefit ratio in the favor of the patient to have surgery as the patient can from the sepsis. There is moderate risk for the procedure. No history of recent angina, arrhythmia, or ischemia. We will suggest to continue perioperative aggressive control of blood pressure, perioperative beta neo, and we will clear the patient as high risk. Surgery will follow with you. Thank you Dr. Aguirre for providing us the opportunity in taking care of the patient. Ulysses Flaherty MD
--- NOTE | 2017-06-08 07:38 | CP.PCM.PN ---
Subjective - Date & Time of Evaluation Date of Evaluation: 06/08/17 Time of Evaluation: 07:35 - Subjective Subjective: GENERAL SURGERY CONSULT NOTE FOR DR. SANCHEZ. Patient has been seen and examined. No overnight events reported. Patient is Non -verbal so ROS could not be obtained. Objective - Vital Signs/Intake and Output Vital Signs (last 24 hours): Temp Pulse Resp BP Pulse Ox 98.3 F 64 18 134/55 L 93 L 06/07/17 17:44 06/07/17 17:44 06/07/17 17:44 06/07/17 17:44 06/07/17 16:00 Intake and Output: 06/08/17 06/08/17 06:59 18:59 Intake Total 0 Output Total 250 Balance -250 - Medications Medications: Current Medications Amlodipine Besylate (Norvasc) 10 mg GT DAILY [facility] Carvedilol (Coreg) 6.25 mg GT BID [facility] Cinacalcet (Sensipar) 30 mg PO DAILY [facility] Donepezil HCl (Aricept) 10 mg GT HS [facility] Last Admin: 06/07/17 21:56 Dose: 10 mg Hydralazine HCl (Apresoline) 100 mg GT TID [facility] Linezolid (Zyvox 600mg/300ml D5w) 600 mg in 300 mls @ 200 mls/hr IVPB Q12 [facility] PRN Reason: Protocol Stop: 06/14/17 10:01 Last Admin: 06/07/17 21:56 Dose: 200 mls/hr Ampicillin Sodium/Sulbactam (Sodium 3 gm/ Sodium Chloride) 100 mls @ 200 mls/ hr IVPB Q12H [facility] PRN Reason: Protocol Last Admin: 06/08/17 03:55 Dose: 200 mls/hr Non-Formulary Medication (Amino Ac/Protein Hydr/Whey Pro [Prosource Plus Liquid Packet]) 30 ml GT DAILY [facility] Non-Formulary Medication (Vitamin B Complex [Super B-50 Complex]) 1 cap GT DAILY [facility] Pregabalin (Lyrica) 50 mg GT TID [facility] Silver Sulfadiazine (Silvadene 1% 25 Gm) 0 gm TP MWF [facility] Valsartan (Diovan) 320 mg GT DAILY [facility] - Labs Labs: 06/07/17 14:30 06/07/17 14:30 PT 13.9 SECONDS (9.4-12.5) H 06/06/17 23:13 INR 1.21 (0.93-1.08) H 06/06/17 23:13 - Additional Findings Additional findings: - Constitutional Appears: Non-toxic, No Acute Distress, Older Than Stated Age - Head Exam Head Exam: ATRAUMATIC - Eye Exam Eye Exam: Normal appearance - ENT Exam ENT Exam: Mucous Membranes Moist - Respiratory Exam Respiratory Exam: Clear to Auscultation Bilateral, NORMAL BREATHING PATTERN. absent: Accessory Muscle Use, Rhonchi, Wheezes - Cardiovascular Exam Cardiovascular Exam: RRR, +S1, +S2 - GI/Abdominal Exam GI & Abdominal Exam: Normal Bowel Sounds, Soft, PEG Tube. absent: Tenderness - Extremities Exam Additional comments: Left sided AKA Right Distal Lower Ext: Dry Gangrene. No drainage, fluctulence, or erythema. Palpable Popliteal pulse No Dorsalis pedis/Posterior tibialis pulse by palpation/Doppler. Warm to touch. Dressing Clean Dry and Intact. - Neurological Exam Neurological exam: Altered - Psychiatric Exam Psychiatric exam: Flat Affect Assessment and Plan - Assessment and Plan (Free Text) Assessment: 76 year old male with right distal lower extremity dry gangrene. Plan: Will plan for right AKA on Sunday (06/11/17) Cont. IV antibiotics Medical optimization Cardiac clearance Obtained (High Risk) Further Recs as per Dr. Sanchez. Marissa Beauchamp, PGY1
[2017-06-08 07:41] LABS: BASO # 0.02 K/mm3 (0.0-2.0); BASO % 0.2 % (0.0-3.0); EOS # 0.3 (0.0-0.7); EOS % 3.4 % (1.5-5.0); GRAN # 6.69 (1.4-6.5); HEMOGLOBIN 8.7 g/dL (14.0-18.0); LYMPH # 1.5 (1.2-3.4); LYMPH % 16.6 % (22.0-35.0); MEAN CELL VOLUME 82.4 fl (80.0-105.0); MEAN CORPUSCULAR HEMOGLOBIN 25.5 pg (25.0-35.0); MONO # 0.7 (0.1-0.6); MONO % 7.8 % (1.0-6.0); RBC 3.41 10^6/uL (3.5-6.1); WHITE BLOOD COUNT 9.3 10^3/ul (4.5-11.0)
[2017-06-08 08:09] LABS: ALB/GLOB RATIO 0.6 (1.1-1.8); ALBUMIN 2.6 g/dL (3.0-4.8); CALCIUM 9.7 mg/dL (8.4-10.5)
--- NOTE | 2017-06-08 09:46 | CON ---
DATE: 06/07/2017 HISTORY OF PRESENT ILLNESS: This is a 76-year-old male known to me from a previous admission. The patient is seen for gangrene to his left foot and heel. The patient was previously in the hospital in March for this problem. PAST MEDICAL HISTORY: Positive for chronic renal failure, dementia, chronic hepatitis B, nephrectomy. The patient also has had CVA in the past and he is diabetic, on insulin. MEDICATIONS: The patient's medications are noted on the MAR. REVIEW OF SYSTEMS: As presenting illness, which shows that he is admitted for the gangrene to his foot with a possible amputation to that foot. The patient is seen in the emergency department where he is non responsive to questions. The history is taken from the chart. PHYSICAL EXAMINATION: VITAL SIGNS: His temperature is 98.6, her blood pressure is 135/51, respirations 20 and the oxygen saturation is 100. LABORATORY DATA: Showed a white blood cell count of 10.7. The H and H is 7.7 and 24.8. His chemistry is noted with BUN and creatinine of 72 and 2.9, but as noted above, he is a dialysis patient and he has a glucose of 114. There is no microbiology as yet from this visit; however, he has a history of having MRSA, Enterococcus and Proteus in that foot during his last stay at in March. The patient has also been seen by Interventional Dr. Griffith. He did have an intervention to the foot on 04/03/2017, and at that time, he stated that there was left popliteal artery patent; however, severe tibial occlusive disease and the left anterior tibial artery was occluded. There was also a 10 cm occlusion of the proximal left peroneal with an 11 cm occlusion of the mid left peroneal tibial artery. At that time, he did have a successful left peroneal artery and left toe with severe tibial and pedal occlusive disease. His lower extremity was evaluated, he has a right AKA. His left foot has gangrenous plaques all over the dorsum of the foot. He has got a large gangrenous heel ulceration. There is no palpable pedal pulses. The skin is very thin and shiny, and atrophic. There is malodor coming from these ulcerations, and unfortunately no signs of healing has been noted since the patient's last intervention. ASSESSMENT: Diabetic with severe peripheral vascular disease, multiple necrotic foot and heel ulcers. PLAN OF TREATMENT: Wounds will be cleansed with Betadine and dry sterile dressing. He does have an offloading boot; however, the recommendation would be for an AKA. The patient will not heal these ulcerations. He has a high risk of having sepsis from these ulcerations. Since he does not ambulate or get out of bed, an AKA is recommended. Thank you, we will follow the patient until that time. Kathy Quiñones DPM
[2017-06-08] MEDS: Linezolid 600 mg in D5W 300 ml 600 MG/300 ML BAG IVPB SCH ×2 (09:53→22:30)
[2017-06-08] MEDS: Silver Sulfadiazine 1% Cream (25 gm) TP SCH (09:54)
[2017-06-08] MEDS: Non Formulary Medication (Vitamin B Complex [Super B-50 Complex] 1 CAP) GT SCH (09:54)
[2017-06-08] MEDS: PROTEIN HYDR GT SCH (09:55)
[2017-06-08] MEDS: AMINO AC GT SCH (09:55)
[2017-06-08] MEDS: [UNRECOGNIZED DRUG - OTHER] GT SCH (09:55)
[2017-06-08] MEDS: WHEY PRO GT SCH (09:55)
--- NOTE | 2017-06-08 11:38 | CP.PCM.PN ---
<Enrike Bernstein - Last Filed: 06/08/17 11:32> Subjective - Date & Time of Evaluation Date of Evaluation: 06/08/17 Time of Evaluation: 11:32 - Subjective Subjective: 76 year old male patient was seen and evaluated at bedside for right leg gangrenous changes to the right foot. Patient is AAOx3 and is in NAD. Patient does not offer much of conversation at the time of the visit and responds by just head nods. Objective - Vital Signs/Intake and Output Vital Signs (last 24 hours): Temp Pulse Resp BP Pulse Ox 100.0 F H 72 18 153/70 H 99 06/08/17 07:30 06/08/17 07:30 06/08/17 07:30 06/08/17 09:53 06/08/17 07:30 Intake and Output: 06/08/17 06/08/17 06:59 18:59 Intake Total 0 Output Total 250 Balance -250 - Medications Medications: Current Medications Amlodipine Besylate (Norvasc) 10 mg GT DAILY [facility] Last Admin: 06/08/17 09:53 Dose: 10 mg Carvedilol (Coreg) 6.25 mg GT BID [facility] Last Admin: 06/08/17 09:53 Dose: 6.25 mg Cinacalcet (Sensipar) 30 mg PO DAILY [facility] Last Admin: 06/08/17 09:52 Dose: 30 mg Donepezil HCl (Aricept) 10 mg GT HS [facility] Last Admin: 06/07/17 21:56 Dose: 10 mg Hydralazine HCl (Apresoline) 100 mg GT TID [facility] Last Admin: 06/08/17 09:53 Dose: 100 mg Linezolid (Zyvox 600mg/300ml D5w) 600 mg in 300 mls @ 200 mls/hr IVPB Q12 [facility] PRN Reason: Protocol Stop: 06/14/17 10:01 Last Admin: 06/08/17 09:53 Dose: 200 mls/hr Ampicillin Sodium/Sulbactam (Sodium 3 gm/ Sodium Chloride) 100 mls @ 200 mls/ hr IVPB Q12H [facility] PRN Reason: Protocol Last Admin: 06/08/17 03:55 Dose: 200 mls/hr Non-Formulary Medication (Amino Ac/Protein Hydr/Whey Pro [Prosource Plus Liquid Packet]) 30 ml GT DAILY [facility] Last Admin: 06/08/17 09:55 Dose: 30 ml Non-Formulary Medication (Vitamin B Complex [Super B-50 Complex]) 1 cap GT DAILY [facility] Last Admin: 06/08/17 09:54 Dose: Not Given Pregabalin (Lyrica) 50 mg GT TID [facility] Last Admin: 06/08/17 09:53 Dose: 50 mg Silver Sulfadiazine (Silvadene 1% 25 Gm) 0 gm TP MWF [facility] Last Admin: 06/08/17 09:54 Dose: Not Given Valsartan (Diovan) 320 mg GT DAILY [facility] Last Admin: 06/08/17 09:52 Dose: 320 mg - Labs Labs: 06/08/17 07:00 06/08/17 07:00 PT 13.9 SECONDS (9.4-12.5) H 06/06/17 23:13 INR 1.21 (0.93-1.08) H 06/06/17 23:13 - Constitutional Appears: Well, Non-toxic, No Acute Distress - Extremities Exam Additional comments: Right LE focused exam: VASC: DP/PT pulses are non-palpable, Cap refill time appears to be diminished, no pitting or non-pitting edema noted DERM: dry gangrenous changes to the dorsum of the right foot as well as plantar heel with very minimal bleeding noted on the periphery. no active drainage, no malodor, no tunneling, no undermining, approximately 0.3 cm of periwound erythema surrounding the wound, no clinical suspicion of active infection NEURO: Protective sensation grossly diminished ORTHO: pain on palpation of the wound site - Neurological Exam Neurological Exam: Alert, Awake, Oriented x3 - Psychiatric Exam Psychiatric exam: Normal Affect, Normal Mood Assessment and Plan - Assessment and Plan (Free Text) Assessment: 76 year old male patient was evaluated for dry gangrenous non-infected right foot wound Plan: Patient seen and evaluated at bedside Discussed patient with attending Dr. Carlson Labs, vital and charts reviewed - febrile, no leukocytosis Patient is not a candidate for any surgical intervention as the patient has very poor blood flow Podiatry to provide local wound care daily Wound cleaned with saline and dressing applied using betadine, DSD Podiatry to follow patient while in-house <Phu Carlson - Last Filed: 06/09/17 08:15> Objective - Vital Signs/Intake and Output Vital Signs (last 24 hours): Temp Pulse Resp BP Pulse Ox 98.9 F 58 L 18 133/55 L 100 06/09/17 00:00 06/09/17 00:00 06/09/17 00:00 06/09/17 00:00 06/09/17 00:00 Intake and Output: 06/09/17 06/09/17 06:59 18:59 Output Total 200 Balance -200 - Medications Medications: Current Medications Amlodipine Besylate (Norvasc) 10 mg GT DAILY [facility] Last Admin: 06/08/17 09:53 Dose: 10 mg Carvedilol (Coreg) 6.25 mg GT BID [facility] Last Admin: 06/08/17 17:26 Dose: 6.25 mg Cinacalcet (Sensipar) 30 mg PO DAILY [facility] Last Admin: 06/08/17 09:52 Dose: 30 mg Donepezil HCl (Aricept) 10 mg GT HS [facility] Last Admin: 06/08/17 22:30 Dose: 10 mg Hydralazine HCl (Apresoline) 100 mg GT TID [facility] Last Admin: 06/08/17 17:26 Dose: 100 mg Linezolid (Zyvox 600mg/300ml D5w) 600 mg in 300 mls @ 200 mls/hr IVPB Q12 [facility] PRN Reason: Protocol Stop: 06/14/17 10:01 Last Admin: 06/08/17 22:30 Dose: 200 mls/hr Ampicillin Sodium/Sulbactam (Sodium 3 gm/ Sodium Chloride) 100 mls @ 200 mls/ hr IVPB Q12H [facility] PRN Reason: Protocol Last Admin: 06/09/17 06:03 Dose: 200 mls/hr Non-Formulary Medication (Amino Ac/Protein Hydr/Whey Pro [Prosource Plus Liquid Packet]) 30 ml GT DAILY [facility] Last Admin: 06/08/17 09:55 Dose: 30 ml Non-Formulary Medication (Vitamin B Complex [Super B-50 Complex]) 1 cap GT DAILY [facility] Last Admin: 06/08/17 09:54 Dose: Not Given Pregabalin (Lyrica) 50 mg GT TID [facility] Last Admin: 06/08/17 17:26 Dose: 50 mg Silver Sulfadiazine (Silvadene 1% 25 Gm) 0 gm TP MWF [facility] Last Admin: 06/08/17 09:54 Dose: Not Given Valsartan (Diovan) 320 mg GT DAILY [facility] Last Admin: 06/08/17 09:52 Dose: 320 mg - Labs Labs: 06/09/17 07:00 06/08/17 07:00 PT 13.9 SECONDS (9.4-12.5) H 06/06/17 23:13 INR 1.21 (0.93-1.08) H 06/06/17 23:13 Attending/Attestation - Attestation I have personally seen and examined this patient.: Yes I have fully participated in the care of the patient.: Yes I have reviewed all pertinent clinical information, including history, physical exam and plan: Yes
[2017-06-08] MEDS ORDERED: Potassium Chloride 20 mEq ER Tab PO ONE (12:27)
--- NOTE | 2017-06-08 13:42 | CON ---
DATE: 06/08/2017 ORTHOPEDIC CONSULTATION LOCATION: Room 572, bed 1. HISTORY OF PRESENT ILLNESS: Patient has severe peripheral vascular disease with gangrene of his right foot and was seen right by Dr. Joy, which I agree on his decision to do above-knee amputation for the gangrenous foot and it is best suited for this procedure. FINAL DIAGNOSIS: Gangrene of the right foot for amputation of the leg either above or below the knee. Nain Short DO
--- NOTE | 2017-06-08 17:52 | CP.PCM.PN ---
Subjective - Date & Time of Evaluation Date of Evaluation: 06/08/17 Time of Evaluation: 12:05 - Subjective Subjective: Comfortable, afebrile, not in distress. Objective - Vital Signs/Intake and Output Vital Signs (last 24 hours): Temp Pulse Resp BP Pulse Ox 100.0 F H 72 18 153/70 H 99 06/08/17 07:30 06/08/17 07:30 06/08/17 07:30 06/08/17 07:30 06/08/17 07:30 Intake and Output: 06/08/17 06/08/17 06:59 18:59 Intake Total 0 Output Total 250 Balance -250 - Medications Medications: Current Medications Amlodipine Besylate (Norvasc) 10 mg GT DAILY [facility] Carvedilol (Coreg) 6.25 mg GT BID [facility] Cinacalcet (Sensipar) 30 mg PO DAILY [facility] Donepezil HCl (Aricept) 10 mg GT HS [facility] Last Admin: 06/07/17 21:56 Dose: 10 mg Hydralazine HCl (Apresoline) 100 mg GT TID [facility] Linezolid (Zyvox 600mg/300ml D5w) 600 mg in 300 mls @ 200 mls/hr IVPB Q12 [facility] PRN Reason: Protocol Stop: 06/14/17 10:01 Last Admin: 06/07/17 21:56 Dose: 200 mls/hr Ampicillin Sodium/Sulbactam (Sodium 3 gm/ Sodium Chloride) 100 mls @ 200 mls/ hr IVPB Q12H [facility] PRN Reason: Protocol Last Admin: 06/08/17 03:55 Dose: 200 mls/hr Non-Formulary Medication (Amino Ac/Protein Hydr/Whey Pro [Prosource Plus Liquid Packet]) 30 ml GT DAILY [facility] Non-Formulary Medication (Vitamin B Complex [Super B-50 Complex]) 1 cap GT DAILY [facility] Pregabalin (Lyrica) 50 mg GT TID [facility] Silver Sulfadiazine (Silvadene 1% 25 Gm) 0 gm TP MWF [facility] Valsartan (Diovan) 320 mg GT DAILY [facility] - Labs Labs: 06/08/17 07:00 06/08/17 07:00 PT 13.9 SECONDS (9.4-12.5) H 06/06/17 23:13 INR 1.21 (0.93-1.08) H 06/06/17 23:13 - Constitutional Appears: Chronically Ill - Head Exam Head Exam: NORMAL INSPECTION - ENT Exam ENT Exam: Mucous Membranes Moist - Neck Exam Neck Exam: absent: Meningismus - Respiratory Exam Respiratory Exam: Decreased Breath Sounds - Cardiovascular Exam Cardiovascular Exam: +S1, +S2 - GI/Abdominal Exam GI & Abdominal Exam: Soft. 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 faecalis; there is evidence of osteomyelitis on MRI of the left heel (calcaneus) change in sensorium, etiology to be determined Possible hemochromatosis DM HTN dyslipidemia ESRD on HD renal cancer S/P partial nephrectomy hepatitis B and C infection history of bullous pemphigoid CAD Plan based on previous cultures, continue Zyvox and Unasyn and will follow up wound cx, blood cx and plan for surgery (for possible AKA) will continue to monitor clinically overall prognosis is poor
--- NOTE | 2017-06-08 19:47 | CP.PCM.PN ---
Subjective - Date & Time of Evaluation Date of Evaluation: 06/08/17 Time of Evaluation: 12:00 - Subjective Subjective: Patient mostly non-verbal; not agitated; Objective - Vital Signs/Intake and Output Vital Signs (last 24 hours): Temp Pulse Resp BP Pulse Ox 99.0 F 63 18 142/53 L 100 06/08/17 16:00 06/08/17 16:00 06/08/17 16:00 06/08/17 16:00 06/08/17 16:00 - Medications Medications: Current Medications Amlodipine Besylate (Norvasc) 10 mg GT DAILY [facility] Last Admin: 06/08/17 09:53 Dose: 10 mg Carvedilol (Coreg) 6.25 mg GT BID [facility] Last Admin: 06/08/17 17:26 Dose: 6.25 mg Cinacalcet (Sensipar) 30 mg PO DAILY [facility] Last Admin: 06/08/17 09:52 Dose: 30 mg Donepezil HCl (Aricept) 10 mg GT HS [facility] Last Admin: 06/07/17 21:56 Dose: 10 mg Hydralazine HCl (Apresoline) 100 mg GT TID [facility] Last Admin: 06/08/17 17:26 Dose: 100 mg Linezolid (Zyvox 600mg/300ml D5w) 600 mg in 300 mls @ 200 mls/hr IVPB Q12 [facility] PRN Reason: Protocol Stop: 06/14/17 10:01 Last Admin: 06/08/17 09:53 Dose: 200 mls/hr Ampicillin Sodium/Sulbactam (Sodium 3 gm/ Sodium Chloride) 100 mls @ 200 mls/ hr IVPB Q12H [facility] PRN Reason: Protocol Last Admin: 06/08/17 16:03 Dose: 200 mls/hr Non-Formulary Medication (Amino Ac/Protein Hydr/Whey Pro [Prosource Plus Liquid Packet]) 30 ml GT DAILY [facility] Last Admin: 06/08/17 09:55 Dose: 30 ml Non-Formulary Medication (Vitamin B Complex [Super B-50 Complex]) 1 cap GT DAILY [facility] Last Admin: 06/08/17 09:54 Dose: Not Given Pregabalin (Lyrica) 50 mg GT TID [facility] Last Admin: 06/08/17 17:26 Dose: 50 mg Silver Sulfadiazine (Silvadene 1% 25 Gm) 0 gm TP MWF [facility] Last Admin: 06/08/17 09:54 Dose: Not Given Valsartan (Diovan) 320 mg GT DAILY [facility] Last Admin: 06/08/17 09:52 Dose: 320 mg - Labs Labs: 06/08/17 07:00 06/08/17 07:00 PT 13.9 SECONDS (9.4-12.5) H 06/06/17 23:13 INR 1.21 (0.93-1.08) H 06/06/17 23:13 - Constitutional Appears: Non-toxic, No Acute Distress - Eye Exam Eye Exam: absent: Scleral icterus - ENT Exam ENT Exam: Mucous Membranes Moist - Respiratory Exam Respiratory Exam: Clear to Ausculation Bilateral Additional comments: limited auscultation, shallow breathing - Cardiovascular Exam Cardiovascular Exam: RRR, +S1, +S2 - GI/Abdominal Exam GI & Abdominal Exam: Soft. absent: Distended, Tenderness - Extremities Exam Additional comments: minimal edema of dependent area; - Neurological Exam Neurological Exam: Alert, Awake. absent: Oriented x3 - Psychiatric Exam Psychiatric exam: absent: Agitated - Skin Skin Exam: Warm. absent: Cyanosis Assessment and Plan (1) Gangrene of right foot Assessment & Plan: s/p L AKA recently, now being planned for R AKA; overall poor prognosis with precipitous decline in mental status/health over past 8 months; on unasyn full dose, at some point can consider dose reduction to q12h dosing for ESRD; Status: Acute (2) ESRD (end stage renal disease) Assessment & Plan: Stable volume and electrolyte status; next HD tomorrow per routine, goal is 2L UF; Status: Chronic (3) Anemia in ESRD (end-stage renal disease) Assessment & Plan: Hgb has been difficult to maintain even with high dose of EPO and IV iron; s/p 1u prbc on , will continue to monitor closely; giving aranesp 125 mcg tomorrow; Status: Acute (4) Chronic kidney disease-mineral and bone disorder Assessment & Plan: Hypercalcemia; continue sensipar 30 mg daily; Status: Acute (5) Hypertensive CKD, ESRD on dialysis Status: Acute (6) Hepatitis B Assessment & Plan: Untreated with no plans to treat due to advanced dementia; Status: Chronic
[2017-06-09 07:57] LABS: HEMOGLOBIN 9.7 g/dL (14.0-18.0); MEAN CELL VOLUME 82.6 fl (80.0-105.0); MEAN CORPUSCULAR HEMOGLOBIN 25.2 pg (25.0-35.0); MEAN CORPUSCULAR HGB CONC 30.5 g/dl (31.0-37.0); MEAN PLATELET VOLUME 9.8 fl (7.0-11.0); RBC 3.85 10^6/uL (3.5-6.1); RED CELL DISTRIBUTION WIDTH 18.1 % (11.5-14.5); WHITE BLOOD COUNT 10.7 10^3/ul (4.5-11.0)
[2017-06-09 08:15] LABS: CALCIUM 9.6 mg/dL (8.4-10.5)
--- NOTE | 2017-06-09 09:40 | CP.PCM.PN ---
<Leonardo Emanuel - Last Filed: 06/09/17 09:37> Subjective - Date & Time of Evaluation Date of Evaluation: 06/09/17 Time of Evaluation: 09:37 - Subjective Subjective: Podiatry Progress Note- Dr. Carlson 76 year old male patient was seen and evaluated at bedside for right leg gangrenous changes to the right foot. Patient is seen laying comfortably in bed , in NAD, and AAOx3. No acute events overnights. No new complains. Objective - Vital Signs/Intake and Output Vital Signs (last 24 hours): Temp Pulse Resp BP Pulse Ox 98 F 60 18 141/55 L 100 06/09/17 08:57 06/09/17 08:57 06/09/17 08:57 06/09/17 08:57 06/09/17 08:57 Intake and Output: 06/09/17 06/09/17 06:59 18:59 Output Total 200 Balance -200 - Medications Medications: Current Medications Amlodipine Besylate (Norvasc) 10 mg GT DAILY [facility] Last Admin: 06/08/17 09:53 Dose: 10 mg Carvedilol (Coreg) 6.25 mg GT BID [facility] Last Admin: 06/08/17 17:26 Dose: 6.25 mg Cinacalcet (Sensipar) 30 mg PO DAILY [facility] Last Admin: 06/08/17 09:52 Dose: 30 mg Donepezil HCl (Aricept) 10 mg GT HS [facility] Last Admin: 06/08/17 22:30 Dose: 10 mg Hydralazine HCl (Apresoline) 100 mg GT TID [facility] Last Admin: 06/08/17 17:26 Dose: 100 mg Linezolid (Zyvox 600mg/300ml D5w) 600 mg in 300 mls @ 200 mls/hr IVPB Q12 [facility] PRN Reason: Protocol Stop: 06/14/17 10:01 Last Admin: 06/08/17 22:30 Dose: 200 mls/hr Ampicillin Sodium/Sulbactam (Sodium 3 gm/ Sodium Chloride) 100 mls @ 200 mls/ hr IVPB Q12H [facility] PRN Reason: Protocol Last Admin: 06/09/17 06:03 Dose: 200 mls/hr Non-Formulary Medication (Amino Ac/Protein Hydr/Whey Pro [Prosource Plus Liquid Packet]) 30 ml GT DAILY [facility] Last Admin: 06/08/17 09:55 Dose: 30 ml Non-Formulary Medication (Vitamin B Complex [Super B-50 Complex]) 1 cap GT DAILY [facility] Last Admin: 06/08/17 09:54 Dose: Not Given Pregabalin (Lyrica) 50 mg GT TID [facility] Last Admin: 06/08/17 17:26 Dose: 50 mg Silver Sulfadiazine (Silvadene 1% 25 Gm) 0 gm TP MWF [facility] Last Admin: 06/08/17 09:54 Dose: Not Given Valsartan (Diovan) 320 mg GT DAILY [facility] Last Admin: 06/08/17 09:52 Dose: 320 mg - Labs Labs: 06/09/17 07:00 06/09/17 07:00 PT 13.9 SECONDS (9.4-12.5) H 06/06/17 23:13 INR 1.21 (0.93-1.08) H 06/06/17 23:13 - Constitutional Appears: Well, Non-toxic, No Acute Distress - Extremities Exam Extremities Exam: Joint Swelling. absent: Calf Tenderness Additional comments: Right LE focused exam: VASC: DP/PT pulses are non-palpable, Cap refill time appears to be diminished, no pitting or non-pitting edema noted DERM: dry gangrenous changes to the dorsum of the right foot as well as plantar heel with very minimal bleeding noted on the periphery. no active drainage, no malodor, no tunneling, no undermining, approximately 0.3 cm of periwound erythema surrounding the wound, no clinical suspicion of active infection NEURO: Protective sensation grossly diminished ORTHO: pain on palpation of the wound site - Neurological Exam Neurological Exam: Awake, Oriented x3 - Psychiatric Exam Psychiatric exam: Normal Affect, Normal Mood Assessment and Plan - Assessment and Plan (Free Text) Assessment: 76 year old male patient was evaluated for dry gangrenous non-infected right foot wound Plan: Patient seen and evaluated at bedside Discussed patient with attending Dr. Carlson Labs, vital and charts reviewed - febrile, no leukocytosis Patient is not a candidate for any surgical intervention as the patient has very poor blood flow Podiatry to provide local wound care daily Wound cleaned with saline and dressing applied using betadine, DSD Podiatry to follow patient while in-house <Phu Carlson - Last Filed: 06/12/17 10:57> Objective - Vital Signs/Intake and Output Vital Signs (last 24 hours): Temp Pulse Resp BP Pulse Ox 98.6 F 60 20 118/56 L 98 06/12/17 07:00 06/12/17 07:00 06/12/17 07:00 06/12/17 07:00 06/12/17 07:00 Intake and Output: 06/12/17 06/12/17 06:59 18:59 Intake Total 0 Output Total 150 Balance -150 - Medications Medications: Current Medications Amlodipine Besylate (Norvasc) 10 mg GT DAILY [facility] Last Admin: 06/11/17 10:00 Dose: Not Given Carvedilol (Coreg) 6.25 mg GT BID [facility] Last Admin: 06/11/17 18:52 Dose: 6.25 mg Cinacalcet (Sensipar) 30 mg PO DAILY [facility] Last Admin: 06/11/17 15:20 Dose: 30 mg Donepezil HCl (Aricept) 10 mg GT HS [facility] Last Admin: 06/11/17 22:43 Dose: 10 mg Heparin Sodium (Porcine) (Heparin) 5,000 units SC Q12 [facility] PRN Reason: Protocol Hydralazine HCl (Apresoline) 100 mg GT TID [facility] Last Admin: 06/11/17 18:52 Dose: 100 mg Hydromorphone HCl (Dilaudid) 0.5 mg IVP Q4H PRN PRN Reason: Pain, moderate (4-7) Linezolid (Zyvox 600mg/300ml D5w) 600 mg in 300 mls @ 200 mls/hr IVPB Q12 [facility] PRN Reason: Protocol Stop: 06/14/17 10:01 Last Admin: 06/11/17 22:58 Dose: 200 mls/hr Piperacillin Sod/Tazobactam Sod (Zosyn 2.25 Gm In 0.9% 100 Ml) 2.25 gm in 100 mls @ 100 mls/hr IV Q8 [facility] PRN Reason: Protocol Stop: 06/19/17 22:01 Last Admin: 06/12/17 05:29 Dose: 100 mls/hr Non-Formulary Medication (Amino Ac/Protein Hydr/Whey Pro [Prosource Plus Liquid Packet]) 30 ml GT DAILY [facility] Last Admin: 06/11/17 10:00 Dose: Not Given Non-Formulary Medication (Vitamin B Complex [Super B-50 Complex]) 1 cap GT DAILY [facility] Last Admin: 06/11/17 15:20 Dose: Not Given Pregabalin (Lyrica) 50 mg GT TID [facility] Last Admin: 06/11/17 18:53 Dose: 50 mg Silver Sulfadiazine (Silvadene 1% 25 Gm) 0 gm TP MWF [facility] Last Admin: 06/11/17 10:00 Dose: Not Given Valsartan (Diovan) 320 mg GT DAILY [facility] Last Admin: 06/11/17 10:00 Dose: 320 mg - Labs Labs: 06/12/17 09:30 06/12/17 09:30 PT 14.9 SECONDS (9.4-12.5) H 06/11/17 07:50 INR 1.29 (0.93-1.08) H 06/11/17 07:50 APTT 30.8 Seconds (25.1-36.5) 06/11/17 07:50 Attending/Attestation - Attestation I have personally seen and examined this patient.: Yes I have fully participated in the care of the patient.: Yes I have reviewed all pertinent clinical information, including history, physical exam and plan: Yes
[2017-06-09] MEDS ORDERED: Darbepoetin Alfa 100 mcg/ml Inj IVP ONE (11:06)
[2017-06-09] MEDS: Non Formulary Medication (Vitamin B Complex [Super B-50 Complex] 1 CAP) GT SCH (14:14)
[2017-06-09] MEDS: Linezolid 600 mg in D5W 300 ml 600 MG/300 ML BAG IVPB SCH ×2 (14:14→21:24)
--- NOTE | 2017-06-09 16:42 | PN ---
DATE: Parris Cabral is seen, is in dialysis, planning the amputation on Sunday. Alejandro Joy MD
[2017-06-09] MEDS: WHEY PRO GT SCH (19:04)
[2017-06-09] MEDS: [UNRECOGNIZED DRUG - OTHER] GT SCH (19:04)
[2017-06-09] MEDS: AMINO AC GT SCH (19:04)
[2017-06-09] MEDS: PROTEIN HYDR GT SCH (19:04)
--- NOTE | 2017-06-09 22:09 | CP.PCM.PN ---
Subjective - Date & Time of Evaluation Date of Evaluation: 06/09/17 Time of Evaluation: 10:00 - Subjective Subjective: Patient tolerating HD well; no hypotension noted by nursing staff; no improvement in mental status; Objective - Vital Signs/Intake and Output Vital Signs (last 24 hours): Temp Pulse Resp BP Pulse Ox 98 F 72 20 120/55 L 100 06/09/17 16:00 06/09/17 19:44 06/09/17 16:00 06/09/17 19:44 06/09/17 16:00 Intake and Output: 06/09/17 06/10/17 18:59 06:59 Output Total 200 Balance -200 - Medications Medications: Current Medications Amlodipine Besylate (Norvasc) 10 mg GT DAILY [facility] Last Admin: 06/09/17 14:16 Dose: 10 mg Carvedilol (Coreg) 6.25 mg GT BID [facility] Last Admin: 06/09/17 19:43 Dose: 6.25 mg Cinacalcet (Sensipar) 30 mg PO DAILY [facility] Last Admin: 06/09/17 14:08 Dose: 30 mg Donepezil HCl (Aricept) 10 mg GT HS [facility] Last Admin: 06/08/17 22:30 Dose: 10 mg Hydralazine HCl (Apresoline) 100 mg GT TID [facility] Last Admin: 06/09/17 19:44 Dose: 100 mg Linezolid (Zyvox 600mg/300ml D5w) 600 mg in 300 mls @ 200 mls/hr IVPB Q12 [facility] PRN Reason: Protocol Stop: 06/14/17 10:01 Last Admin: 06/09/17 21:24 Dose: 200 mls/hr Ampicillin Sodium/Sulbactam (Sodium 3 gm/ Sodium Chloride) 100 mls @ 200 mls/ hr IVPB Q12H [facility] PRN Reason: Protocol Last Admin: 06/09/17 16:03 Dose: 200 mls/hr Non-Formulary Medication (Amino Ac/Protein Hydr/Whey Pro [Prosource Plus Liquid Packet]) 30 ml GT DAILY [facility] Last Admin: 06/09/17 19:04 Dose: 30 ml Non-Formulary Medication (Vitamin B Complex [Super B-50 Complex]) 1 cap GT DAILY [facility] Last Admin: 06/09/17 14:14 Dose: Not Given Pregabalin (Lyrica) 50 mg GT TID [facility] Last Admin: 06/09/17 19:45 Dose: 50 mg Silver Sulfadiazine (Silvadene 1% 25 Gm) 0 gm TP MWF [facility] Last Admin: 06/08/17 09:54 Dose: Not Given Valsartan (Diovan) 320 mg GT DAILY [facility] Last Admin: 06/09/17 14:08 Dose: 320 mg - Labs Labs: 06/09/17 07:00 06/09/17 07:00 PT 13.9 SECONDS (9.4-12.5) H 06/06/17 23:13 INR 1.21 (0.93-1.08) H 06/06/17 23:13 - Constitutional Appears: Non-toxic, No Acute Distress - ENT Exam ENT Exam: Mucous Membranes Moist - Respiratory Exam Respiratory Exam: Clear to Ausculation Bilateral. absent: Respiratory Distress - Cardiovascular Exam Cardiovascular Exam: RRR, +S1, +S2 - GI/Abdominal Exam GI & Abdominal Exam: Soft. absent: Distended, Tenderness - Extremities Exam Additional comments: minimal edema of dependent area - Neurological Exam Neurological Exam: Alert, Awake - Psychiatric Exam Psychiatric exam: absent: Agitated - Skin Skin Exam: Warm. absent: Cyanosis Assessment and Plan (1) Gangrene of right foot Assessment & Plan: On unasyn (dosed for renal insufficiency) and linezolid; awaiting R AKA; Status: Acute (2) ESRD (end stage renal disease) Assessment & Plan: Stable electrolyte and volume status; HD today per routine; aiming for 1500 cc net UF; Status: Chronic (3) Anemia in ESRD (end-stage renal disease) Assessment & Plan: s/p 1 u prbc 2 days ago; hgb stable; giving dose of aranesp 200 mcg today; Status: Acute (4) Chronic kidney disease-mineral and bone disorder Assessment & Plan: With hypercalcemia; on cinacalcet 30 mg daily, continue same; phos controlled off binders, continue to hold; Status: Acute (5) Hypertensive CKD, ESRD on dialysis Assessment & Plan: BP adequately controlled on coreg 6.25 bid, amlodipine 10, valsartan 320 and hydralazine 100 mg tid, continue same; Status: Acute (6) Hepatitis B Status: Chronic
--- NOTE | 2017-06-10 00:44 | PN ---
DATE: 06/09/2017 SUBJECTIVE: Patient is in bed, in no acute distress. Patient was seen early this morning in room 576, bed 1. OBJECTIVE: GENERAL: Patient appears chronically ill, weak. VITAL SIGNS: Temperature of 98, blood pressure is 160/70, respiratory rate of 20, and heart rate of 72. HEENT: Unremarkable. LABORATORY DATA: Microbiology revealed proteus and group-B strep. Right foot cultures are gram-positive cocci. ASSESSMENT AND PLAN: This is a 76-year-old male with a right foot gangrene and probable osteomyelitis, with bilateral gangrene and heel ulcers and status post debridement, grown methicillin-resistant Staphylococcus aureus Proteus Enterococcus and evidence of osteomyelitis, change in sensorium, diabetes. On Zyvox and Unasyn. For possible above the knee amputation. We will continue the present course. Patient's Proteus mirabilis is sensitive to Zosyn, resistant to ampicillin. There is no Augmentin, Unasyn sensitivity done. We will follow with you. Awaiting for a gram-positive cocci and a gram-negative rods. Ibrahima Lara MD
--- NOTE | 2017-06-10 09:18 | CP.PCM.PN ---
Subjective - Date & Time of Evaluation Date of Evaluation: 06/10/17 Time of Evaluation: 07:00 - Subjective Subjective: GENERAL SURGERY PROGRESS NOTE FOR DR. SANCHEZ Patient seen and examined at bedside. Patient non verbal but opens eyes. He had dialysis yesterday. Objective - Vital Signs/Intake and Output Vital Signs (last 24 hours): Temp Pulse Resp BP Pulse Ox 98 F 72 20 120/55 L 100 06/09/17 16:00 06/09/17 19:44 06/09/17 16:00 06/09/17 19:44 06/09/17 16:00 - Medications Medications: Current Medications Amlodipine Besylate (Norvasc) 10 mg GT DAILY [facility] Last Admin: 06/09/17 14:16 Dose: 10 mg Carvedilol (Coreg) 6.25 mg GT BID [facility] Last Admin: 06/09/17 19:43 Dose: 6.25 mg Cinacalcet (Sensipar) 30 mg PO DAILY [facility] Last Admin: 06/09/17 14:08 Dose: 30 mg Donepezil HCl (Aricept) 10 mg GT HS [facility] Last Admin: 06/09/17 22:35 Dose: 10 mg Heparin Sodium (Porcine) (Heparin) 5,000 units SC Q8 [facility] PRN Reason: Protocol Stop: 06/11/17 00:01 Hydralazine HCl (Apresoline) 100 mg GT TID [facility] Last Admin: 06/09/17 19:44 Dose: 100 mg Linezolid (Zyvox 600mg/300ml D5w) 600 mg in 300 mls @ 200 mls/hr IVPB Q12 [facility] PRN Reason: Protocol Stop: 06/14/17 10:01 Last Admin: 06/09/17 21:24 Dose: 200 mls/hr Ampicillin Sodium/Sulbactam (Sodium 3 gm/ Sodium Chloride) 100 mls @ 200 mls/ hr IVPB Q12H [facility] PRN Reason: Protocol Last Admin: 06/10/17 05:27 Dose: 200 mls/hr Non-Formulary Medication (Amino Ac/Protein Hydr/Whey Pro [Prosource Plus Liquid Packet]) 30 ml GT DAILY [facility] Last Admin: 06/09/17 19:04 Dose: 30 ml Non-Formulary Medication (Vitamin B Complex [Super B-50 Complex]) 1 cap GT DAILY [facility] Last Admin: 06/09/17 14:14 Dose: Not Given Pregabalin (Lyrica) 50 mg GT TID [facility] Last Admin: 06/09/17 19:45 Dose: 50 mg Silver Sulfadiazine (Silvadene 1% 25 Gm) 0 gm TP MWF [facility] Last Admin: 06/08/17 09:54 Dose: Not Given Valsartan (Diovan) 320 mg GT DAILY [facility] Last Admin: 06/09/17 14:08 Dose: 320 mg - Labs Labs: 06/09/17 07:00 06/09/17 07:00 PT 13.9 SECONDS (9.4-12.5) H 06/06/17 23:13 INR 1.21 (0.93-1.08) H 06/06/17 23:13 - Constitutional Appears: Non-toxic, No Acute Distress, Chronically Ill - Respiratory Exam Respiratory Exam: NORMAL BREATHING PATTERN. absent: Respiratory Distress - Cardiovascular Exam Cardiovascular Exam: +S1, +S2 - GI/Abdominal Exam Additional comments: PEG - Extremities Exam Additional comments: Left AKA Right foot dressing clean/dry/intact - Neurological Exam Neurological Exam: Altered Assessment and Plan - Assessment and Plan (Free Text) Assessment: 76yo M with right distal lower extremity dry gangrene - Right foot cx: MRSA - Plan for OR tomorrow for Right AKA - Consent from family obtained - Continue IV Abx - Discussed with Dr. Flaherty - patient cleared from cardiology standpoint but high risk and benefits of surgery outweigh risks - NPO past midnight - Heparin held at midnight - Type and cross - Further recs per Dr. Rufino Cook PGY-3
[2017-06-10] MEDS: Linezolid 600 mg in D5W 300 ml 600 MG/300 ML BAG IVPB SCH (09:39)
[2017-06-10 10:17] LABS: CALCIUM 9.4 mg/dL (8.4-10.5)
[2017-06-10] MEDS: PROTEIN HYDR GT SCH (10:36)
[2017-06-10] MEDS: WHEY PRO GT SCH (10:36)
[2017-06-10] MEDS: AMINO AC GT SCH (10:36)
[2017-06-10] MEDS: [UNRECOGNIZED DRUG - OTHER] GT SCH (10:36)
[2017-06-10] MEDS: Non Formulary Medication (Vitamin B Complex [Super B-50 Complex] 1 CAP) GT SCH (10:38)
--- NOTE | 2017-06-10 12:27 | CP.PCM.PN ---
<Leonardo Emanuel - Last Filed: 06/10/17 12:23> Subjective - Date & Time of Evaluation Date of Evaluation: 06/10/17 Time of Evaluation: 12:23 - Subjective Subjective: Podiatry Progress Note- Dr. Carlson 76 year old male patient was seen and evaluated at bedside for right leg gangrenous changes to the right foot. Patient is seen laying comfortably in bed and in NAD. No acute events overnights. No new complains. Objective - Vital Signs/Intake and Output Vital Signs (last 24 hours): Temp Pulse Resp BP Pulse Ox 98.7 F 62 20 123/55 L 90 L 06/10/17 09:50 06/10/17 09:50 06/10/17 09:50 06/10/17 09:50 06/10/17 09:50 - Medications Medications: Current Medications Amlodipine Besylate (Norvasc) 10 mg GT DAILY [facility] Last Admin: 06/10/17 09:40 Dose: 10 mg Carvedilol (Coreg) 6.25 mg GT BID [facility] Last Admin: 06/10/17 09:40 Dose: 6.25 mg Cinacalcet (Sensipar) 30 mg PO DAILY [facility] Last Admin: 06/10/17 09:40 Dose: 30 mg Donepezil HCl (Aricept) 10 mg GT HS [facility] Last Admin: 06/09/17 22:35 Dose: 10 mg Heparin Sodium (Porcine) (Heparin) 5,000 units SC Q8 [facility] PRN Reason: Protocol Stop: 06/11/17 00:01 Hydralazine HCl (Apresoline) 100 mg GT TID [facility] Last Admin: 06/10/17 09:40 Dose: 100 mg Linezolid (Zyvox 600mg/300ml D5w) 600 mg in 300 mls @ 200 mls/hr IVPB Q12 [facility] PRN Reason: Protocol Stop: 06/14/17 10:01 Last Admin: 06/10/17 09:39 Dose: 200 mls/hr Ampicillin Sodium/Sulbactam (Sodium 3 gm/ Sodium Chloride) 100 mls @ 200 mls/ hr IVPB Q12H [facility] PRN Reason: Protocol Last Admin: 06/10/17 05:27 Dose: 200 mls/hr Non-Formulary Medication (Amino Ac/Protein Hydr/Whey Pro [Prosource Plus Liquid Packet]) 30 ml GT DAILY [facility] Last Admin: 06/09/17 19:04 Dose: 30 ml Non-Formulary Medication (Vitamin B Complex [Super B-50 Complex]) 1 cap GT DAILY [facility] Last Admin: 06/09/17 14:14 Dose: Not Given Pregabalin (Lyrica) 50 mg GT TID [facility] Last Admin: 06/10/17 09:41 Dose: 50 mg Silver Sulfadiazine (Silvadene 1% 25 Gm) 0 gm TP MWF [facility] Last Admin: 06/08/17 09:54 Dose: Not Given Valsartan (Diovan) 320 mg GT DAILY [facility] Last Admin: 06/10/17 09:45 Dose: 320 mg - Labs Labs: 06/09/17 07:00 06/10/17 09:50 PT 13.9 SECONDS (9.4-12.5) H 06/06/17 23:13 INR 1.21 (0.93-1.08) H 06/06/17 23:13 - Constitutional Appears: Well, Non-toxic, No Acute Distress - Extremities Exam Additional comments: Right LE focused exam: VASC: DP/PT pulses are non-palpable, Cap refill time appears to be diminished, no pitting or non-pitting edema noted DERM: multiple dry gangrenous unstageable ulcerations to the RLE: dorsum of the right foot and plantar heel with very minimal bleeding noted on the periphery. no active drainage, no malodor, no tunneling, no undermining, approximately 0.3 cm of periwound erythema surrounding the wound, no clinical suspicion of active infection NEURO: Protective sensation grossly diminished ORTHO: pain on palpation of the wound site - Neurological Exam Neurological Exam: Awake - Psychiatric Exam Psychiatric exam: Normal Affect, Normal Mood Assessment and Plan - Assessment and Plan (Free Text) Assessment: 76 year old male patient was evaluated for dry gangrenous non-infected right foot wound Plan: Patient seen and evaluated at bedside Discussed patient with attending Dr. Carlson Labs, vital and charts reviewed - febrile, no leukocytosis Podiatry plans no surgical intervention Podiatry to provide local wound care daily Cleansed ulceration with saline solution, dressed with xerform, dsd, and kerlix. Wound cleaned with saline and dressing applied using betadine, DSD Podiatry to follow patient while in-house <Phu Carlson - Last Filed: 06/12/17 11:00> Objective - Vital Signs/Intake and Output Vital Signs (last 24 hours): Temp Pulse Resp BP Pulse Ox 98.6 F 60 20 118/56 L 98 06/12/17 07:00 06/12/17 07:00 06/12/17 07:00 06/12/17 07:00 06/12/17 07:00 Intake and Output: 06/12/17 06/12/17 06:59 18:59 Intake Total 0 Output Total 150 Balance -150 - Medications Medications: Current Medications Amlodipine Besylate (Norvasc) 10 mg GT DAILY [facility] Last Admin: 06/11/17 10:00 Dose: Not Given Carvedilol (Coreg) 6.25 mg GT BID [facility] Last Admin: 06/11/17 18:52 Dose: 6.25 mg Cinacalcet (Sensipar) 30 mg PO DAILY [facility] Last Admin: 06/11/17 15:20 Dose: 30 mg Donepezil HCl (Aricept) 10 mg GT HS [facility] Last Admin: 06/11/17 22:43 Dose: 10 mg Heparin Sodium (Porcine) (Heparin) 5,000 units SC Q12 [facility] PRN Reason: Protocol Hydralazine HCl (Apresoline) 100 mg GT TID [facility] Last Admin: 06/11/17 18:52 Dose: 100 mg Hydromorphone HCl (Dilaudid) 0.5 mg IVP Q4H PRN PRN Reason: Pain, moderate (4-7) Linezolid (Zyvox 600mg/300ml D5w) 600 mg in 300 mls @ 200 mls/hr IVPB Q12 [facility] PRN Reason: Protocol Stop: 06/14/17 10:01 Last Admin: 06/11/17 22:58 Dose: 200 mls/hr Piperacillin Sod/Tazobactam Sod (Zosyn 2.25 Gm In 0.9% 100 Ml) 2.25 gm in 100 mls @ 100 mls/hr IV Q8 [facility] PRN Reason: Protocol Stop: 06/19/17 22:01 Last Admin: 06/12/17 05:29 Dose: 100 mls/hr Non-Formulary Medication (Amino Ac/Protein Hydr/Whey Pro [Prosource Plus Liquid Packet]) 30 ml GT DAILY [facility] Last Admin: 06/11/17 10:00 Dose: Not Given Non-Formulary Medication (Vitamin B Complex [Super B-50 Complex]) 1 cap GT DAILY [facility] Last Admin: 06/11/17 15:20 Dose: Not Given Pregabalin (Lyrica) 50 mg GT TID [facility] Last Admin: 06/11/17 18:53 Dose: 50 mg Silver Sulfadiazine (Silvadene 1% 25 Gm) 0 gm TP MWF [facility] Last Admin: 06/11/17 10:00 Dose: Not Given Valsartan (Diovan) 320 mg GT DAILY [facility] Last Admin: 06/11/17 10:00 Dose: 320 mg - Labs Labs: 06/12/17 09:30 06/12/17 09:30 PT 14.9 SECONDS (9.4-12.5) H 06/11/17 07:50 INR 1.29 (0.93-1.08) H 06/11/17 07:50 APTT 30.8 Seconds (25.1-36.5) 06/11/17 07:50 Attending/Attestation - Attestation I have personally seen and examined this patient.: Yes I have fully participated in the care of the patient.: Yes I have reviewed all pertinent clinical information, including history, physical exam and plan: Yes
[2017-06-10] MEDS: Piperacillin/Tazobact 2.25gm 2.25 GM/100 ML BAG IV SCH (23:20)
[2017-06-11] MEDS ORDERED: Sodium Chloride 0.9% 1,000 ML IV SCH (00:01)
[2017-06-11] MEDS: Linezolid 600 mg in D5W 300 ml 600 MG/300 ML BAG IVPB SCH ×3 (00:19→22:58)
--- NOTE | 2017-06-11 01:30 | PN ---
DATE: 06/09/2017 SUBJECTIVE: Patient seems comfortable, no distress, getting the feeding. He responds to calling his name. No respiratory distress. Does not seem to be in pain at this time. PHYSICAL EXAMINATION: As follows: VITAL SIGNS: Temperature is 98, heart rate 60, blood pressure 141/55, respirations 18, saturation 100%. HEAD AND NECK: Normal. No JVD. No thyromegaly. CHEST: Clear bilaterally. CARDIOPULMONARY: First and second sounds normal, regular. ABDOMEN: Soft, nontender. PEG tube site is clean. EXTREMITIES: Left above-knee amputation. Right leg is covered and has dry gangrene. LABORATORY DATA: Laboratory studies show white count 10.7, hemoglobin 9.7, hematocrit 31.8, platelets 138. Chemistry: Sodium 133, potassium 3.8, chloride 93, bicarbonate 28, BUN 63, creatinine 2.9, blood sugar 146 and calcium 9.6. IMPRESSION AND PLAN: 1. Dry gangrene, right foot due to poor ischemia, severe peripheral vascular disease. Patient will go for surgical above-knee amputation. Discussed with the daughter. Patient is at high risk because of this comorbidities and associated medical problems; however, the risk of the dry gangrene, infection and sepsis is more high and outweigh the risk of other medical problems. At this time, we will go ahead with the surgery. He is medically stable and hemoglobin today is 9.7, hematocrit 31.8, and we will go ahead with the surgery on Sunday. 2. Chronic renal failure. Continue hemodialysis. 3. Hypertension. Patient is currently on blood pressure medicine, stable. 4. Patient has dysphagia, dementia with history of transient ischemic disease, history of stroke and dysphagia, continue the feeding tube for now. We will hold off any antiplatelet therapy at this time after surgery. No aspirin. 5. Dry gangrene, right foot. Continue Zyvox and Unasyn. IV antibiotics. 6. Dementia, continue Aricept. 7. History of renal mass, chronic hepatitis B. Continue current therapy. Follow up clinically. Patient is not a candidate for nephrectomy. At this time, continue current therapy, continue current medications. Patient will be getting the Unasyn. He is getting also ProSource via PEG tube and he is getting Jevity via PEG tube. Continue hydralazine 100 mg t.i.d., Aricept 10 mg at bedtime, Coreg 6.25 b.i.d., Diovan 320, Lyrica 50 mg t.i.d., Norvasc 10 mg once a day, Sensipar 30 mg daily, Silvadene cream locally and vitamin B complex plus Zyvox 600 IV q.12. Patient has methicillin-resistant Staphylococcus aureus, has multiple organisms. Patient is stable for surgery. We will go ahead and proceed and seen by building custodian, by Infectious Disease, by estimator jewelry and his hemoglobin is stable. Barber Aguirre MD
--- NOTE | 2017-06-11 02:00 | PN ---
DATE: 06/08/2017 SUBJECTIVE: Patient seems comfortable, in no distress. He responds to calling his name. In no respiratory distress. No nausea and no vomiting. PHYSICAL EXAMINATION: VITAL SIGNS: As follows: Temperature is 99, heart rate 63, blood pressure 142/53, respiratory rate 18, and saturation 100%. HEENT: Head and neck exam normal. NECK: No JVD. No thyromegaly. CHEST: Clear. CARDIAC: First sound and second sound normal. ABDOMEN: Soft, nontender. PEG site is clean. EXTREMITIES: He does have left above-knee amputation. Right foot is positive for dry gangrene. NEUROLOGIC: He moves his arms. He responds to calling his name, but he is lethargic, back to his baseline mental status. LABORATORY STUDIES: As follows: White count 9.3, hemoglobin 8.7, hematocrit 28.1, and platelets 132. His chemistry noted for sodium 137, potassium 3.5, chloride 97, bicarbonate 30, BUN 38, creatinine 2.1, blood glucose level 149. Calcium 9.7 and liver function test is normal. Alkaline phosphatase is 142. IMPRESSION AND PLAN: A 76-year-old male, came in with dry gangrene in the right lower extremity. He is currently on IV antibiotics. 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 Discussed with the daughter about the risk of surgery, perioperative mortality with his comorbid illnesses; however, the choice between Palliative Care versus above-knee amputation of less pain and Palliative Care for him, the daughter chose to go ahead with the above-knee amputation, which will eliminate some of his pain and suffering and I will go ahead and proceed with that. All options has been discussed with the daughter. So, 1. Gangrene, right lower extremity, medically stable for surgical above-knee amputation. 2. Anemia, iron deficiency. We will transfuse. He already had two units of packed RBCs. We will transfuse more to get his hemoglobin close to 10. 3. Chronic renal failure. Continue hemodialysis. 4. Hypertension. He is stable on medications. Continue losartan, Coreg, and hydralazine. 5. Patient does have history of renal mass, denied any surgical intervention, and we will continue current treatment for now. We will repeat lab in the morning and continue IV antibiotics, Zyvox and Unasyn. Barber Aguirre MD [facility] # [id number]
--- NOTE | 2017-06-11 03:08 | PN ---
DATE: SUBJECTIVE: Patient is in bed, in no acute distress, nontoxic. OBJECTIVE: VITAL SIGNS: Temperature is 97, blood pressure is 130/80, respiratory rate of 18, heart rate of 101. HEENT: Unremarkable. NECK: Supple. LUNGS: Have decreased breath sounds. HEART: Normal S1 and S2. ABDOMEN: Soft, nontender. LABORATORY DATA: Reveals a white count of 10,000, hemoglobin of 9. Chemistries are noted, with a BUN of 48, creatinine of 2.3. Urinalysis is noted. Microbiology reveals right foot with MRSA and sacral with Proteus and group B strep and E. coli. ASSESSMENT AND PLAN: This is a 76-year-old male with a right foot gangrene, probable osteomyelitis, bilateral gangrene and heel ulcers, and status post debridement, with methicillin-resistant Staphylococcus aureus, and Proteus, Enterococcus, on Zyvox and Unasyn. The Proteus is resistant to ampicillin. We will change the Unasyn to Zosyn and reduce the renal dosing. We will follow closely with you. Ibrahima Lara MD [email or web address]
[2017-06-11] MEDS: Piperacillin/Tazobact 2.25gm 2.25 GM/100 ML BAG IV SCH ×3 (05:59→22:36)
[2017-06-11 08:15] LABS: BASO # 0.05 K/mm3 (0.0-2.0); BASO % 0.5 % (0.0-3.0); EOS # 0.4 (0.0-0.7); EOS % 3.8 % (1.5-5.0); GRAN # 7.1 (1.4-6.5); GRAN % 69.8 % (50.0-68.0); HEMOGLOBIN 8.6 g/dL (14.0-18.0); LYMPH # 1.9 (1.2-3.4); LYMPH % 18.6 % (22.0-35.0); MEAN CELL VOLUME 81.7 fl (80.0-105.0); MEAN CORPUSCULAR HEMOGLOBIN 25.4 pg (25.0-35.0); MEAN CORPUSCULAR HGB CONC 31.2 g/dl (31.0-37.0); MONO # 0.7 (0.1-0.6); MONO % 7.3 % (1.0-6.0); RBC 3.38 10^6/uL (3.5-6.1); RED CELL DISTRIBUTION WIDTH 17.8 % (11.5-14.5); WHITE BLOOD COUNT 10.2 10^3/ul (4.5-11.0)
[2017-06-11 08:28] LABS: INR 1.29 (0.93-1.08); PARTIAL THROMBOPLASTIN TIME 30.8 Seconds (25.1-36.5); PROTHROMBIN TIME 14.9 SECONDS (9.4-12.5)
--- NOTE | 2017-06-11 09:07 | PN ---
DATE: 06/10/2017 REASON FOR CONSULTATION: Followup preop evaluation, risk stratification for possible amputation, right BKA for right foot gangrene. SUBJECTIVE: The patient denies any chest pain, shortness of breath or any palpitations. OBJECTIVE: GENERAL: Not in apparent distress. VITAL SIGNS: Temperature afebrile, heart rate 62, blood pressure 123/55. HEENT: PERRLA. Extraocular muscles intact. NECK: Supple. No carotid bruit or thyromegaly. CHEST: Clear to auscultation. HEART: S1 and S2 regular. ABDOMEN: Soft. EXTREMITIES: Clubbing and cyanosis negative. LABORATORY DATA: WBC 10.3, hemoglobin , hematocrit 31.8, platelet count 138. Chemistry shows sodium 130, potassium 3.9, chloride 96, carbon dioxide , anion gap of 13, BUN , creatinine 2.3. IMPRESSION: End-stage renal disease, on dialysis; gangrene of the right foot, status post left above knee amputation, possible right below knee amputation, gangrene, severe peripheral arterial disease, hypertension, hyperlipidemia. The patient last had echo on 10/27/2012, ejection fraction 78%, normal LV function. No regional wall motion abnormality. ejection fraction 70%, normal RV. History of repeat echo on 04/03/2017, ejection fraction 65%, trace mitral and trace tricuspid regurgitation. PREOPERATIVE IMPRESSION: A 76-year-old male with end-stage renal disease, on dialysis; severe peripheral arterial disease, status post left above knee amputation, admitted with gangrene foot requiring below knee amputation. The patient will be at moderate to high risk because of underlying comorbidity gangrene, and after this, the patient can be in the rehab. I explained to patient though patient will be in high-risk, continue perioperative beta-neo. We will follow with you. Thank you, Dr. Aguirre for providing us the opportunity in taking care of the patient, Parris Cabral. We will follow with you. Ulysses Flaherty MD [facility] # [id number]
[2017-06-11] MEDS: AMINO AC GT SCH (10:00)
[2017-06-11] MEDS: [UNRECOGNIZED DRUG - OTHER] GT SCH (10:00)
[2017-06-11] MEDS: Silver Sulfadiazine 1% Cream (25 gm) TP SCH (10:00)
[2017-06-11] MEDS: WHEY PRO GT SCH (10:00)
[2017-06-11] MEDS: PROTEIN HYDR GT SCH (10:00)
[2017-06-11] MEDS ORDERED: Etomidate 20 mg/10ml Inj IV ONE (10:30)
[2017-06-11] MEDS ORDERED: Lidocaine 1% Inj (20ml) ONE (10:30)
[2017-06-11] MEDS ORDERED: Succinylcholine 200 mg/10 ml Inj IV ONE (10:32)
[2017-06-11] MEDS ORDERED: Rocuronium 10 mg/ml (5 ml) ONE (10:32)
[2017-06-11] MEDS ORDERED: Bupivacaine 0.5% Inj(30mL) ONE (10:40)
[2017-06-11] MEDS ORDERED: ePHEDrine 50 mg/ml Inj ONE ×2 (11:07→12:16)
[2017-06-11] MEDS ORDERED: Bupivacaine 0.25% Inj(30mL) ONE (11:19)
[2017-06-11] MEDS ORDERED: Desflurane Inhalation Anesthetic Liq (240 ml) ONE (11:27)
[2017-06-11] MEDS ORDERED: Neostigmine Methylsulfate 3mg/3ml Syringe IV ONE (12:23)
[2017-06-11] MEDS ORDERED: HYDROmorphone 0.5 mg/0.5 ml ISec IVP PRN (13:04)
--- NOTE | 2017-06-11 13:08 | PCM.SURG1 ---
Surgeon's Initial Post Op Note - Surgeon's Notes Surgeon: Dr. Joy Nuclear Scientist: Dr. Alexis PGY3, Student Dr. Carroll OMS3 Type of Anesthesia: General Endo Pre-Operative Diagnosis: right leg dry gangrene Operative Findings: appropriate blood flow to RLE stump Post-Operative Diagnosis: same Operation Performed: right above the knee amputation Specimen/Specimens Removed: right leg Estimated Blood Loss: EBL {In ML}: 300 Blood Products Given: PRBC (1) Drains Used: [place] Post-Op Condition: Fair Date of Surgery/Procedure: 06/11/17 Time of Surgery/Procedure: 13:08
--- NOTE | 2017-06-11 13:17 | PN ---
DATE: REASON FOR THE CONSULTATION AND FOLLOWUP: Preop evaluation, risk stratification for possible amputation, right BKA for right foot gangrene. SUBJECTIVE: The patient denies any chest pain, shortness of breath, or any palpitation. He is being prepped to go to the OR. PHYSICAL EXAMINATION: GENERAL: Not in any apparent distress. VITAL SIGNS: Temperature afebrile, heart rate 54, blood pressure 133/52. HEENT: PERRLA. Extraocular muscles intact. NECK: Supple. No carotid bruit. No thyromegaly. CHEST: Clear to auscultation. HEART: S1 and S2, regular. ABDOMEN: Soft. EXTREMITIES: Clubbing and cyanosis negative. LABORATORY DATA: Blood workup as follows. WBC 10.8, hemoglobin 8.3, hematocrit 27.6, platelet count 133. Chemistry shows sodium 131, potassium 3.8, chloride 95, carbon dioxide 26, anion gap of 14. BUN 71, creatinine 3.0. IMPRESSION: End-stage renal disease, on dialysis; right foot gangrene; severe peripheral arterial disease, status post left above-knee amputation and going for possible right below-knee amputation; the patient is moderate to high risk for any procedure, but risk and benefit ratio is in favor of the patient to have the surgery done. Otherwise, the patient can from the sepsis. We will follow with you. Interim, continue perioperative beta-neo. Continue valsartan. Continue hydralazine and dialysis. Continue broad-spectrum antibiotics. We will follow with you. Last echo shows preserved left ventricular function dated 04/03/2017, 65% ejection fraction, trace mitral regurgitation, trace tricuspid regurgitation dated 04/03/2017. Thank you, Dr. Aguirre for providing us the opportunity in taking care of the patient, Parris Cabral. Ulysses Flaherty MD
[2017-06-11] MEDS ORDERED: HYDROmorphone 0.5 mg/0.5 ml ISec ONE ×2 (14:49→15:07)
[2017-06-11] MEDS: Non Formulary Medication (Vitamin B Complex [Super B-50 Complex] 1 CAP) GT SCH (15:20)
--- NOTE | 2017-06-11 20:15 | CP.PCM.PN ---
Subjective - Date & Time of Evaluation Date of Evaluation: 06/11/17 Time of Evaluation: 08:00 - Subjective Subjective: Comfortable, no fevers. For OR today. Objective - Vital Signs/Intake and Output Vital Signs (last 24 hours): Temp Pulse Resp BP Pulse Ox 98.5 F 54 L 18 133/52 L 100 06/11/17 09:00 06/11/17 09:00 06/11/17 09:00 06/11/17 09:00 06/11/17 09:00 Intake and Output: 06/11/17 06/11/17 06:59 18:59 Intake Total 0 Output Total 300 Balance -300 - Medications Medications: Current Medications Amlodipine Besylate (Norvasc) 10 mg GT DAILY [facility] Last Admin: 06/10/17 09:40 Dose: 10 mg Carvedilol (Coreg) 6.25 mg GT BID [facility] Last Admin: 06/10/17 20:37 Dose: 6.25 mg Cinacalcet (Sensipar) 30 mg PO DAILY [facility] Last Admin: 06/10/17 09:40 Dose: 30 mg Donepezil HCl (Aricept) 10 mg GT HS [facility] Last Admin: 06/10/17 23:31 Dose: 10 mg Hydralazine HCl (Apresoline) 100 mg GT TID [facility] Last Admin: 06/10/17 20:35 Dose: 100 mg Linezolid (Zyvox 600mg/300ml D5w) 600 mg in 300 mls @ 200 mls/hr IVPB Q12 [facility] PRN Reason: Protocol Stop: 06/14/17 10:01 Last Admin: 06/11/17 00:19 Dose: 200 mls/hr Piperacillin Sod/Tazobactam Sod (Zosyn 2.25 Gm In 0.9% 100 Ml) 2.25 gm in 100 mls @ 100 mls/hr IV Q8 [facility] PRN Reason: Protocol Stop: 06/19/17 22:01 Last Admin: 06/11/17 05:59 Dose: 100 mls/hr Non-Formulary Medication (Amino Ac/Protein Hydr/Whey Pro [Prosource Plus Liquid Packet]) 30 ml GT DAILY [facility] Last Admin: 06/10/17 10:36 Dose: 30 ml Non-Formulary Medication (Vitamin B Complex [Super B-50 Complex]) 1 cap GT DAILY [facility] Last Admin: 06/10/17 10:38 Dose: Not Given Pregabalin (Lyrica) 50 mg GT TID [facility] Last Admin: 06/10/17 20:32 Dose: 50 mg Silver Sulfadiazine (Silvadene 1% 25 Gm) 0 gm TP MWF [facility] Last Admin: 06/08/17 09:54 Dose: Not Given Valsartan (Diovan) 320 mg GT DAILY [facility] Last Admin: 06/10/17 09:45 Dose: 320 mg - Labs Labs: 06/11/17 07:50 06/11/17 07:50 PT 14.9 SECONDS (9.4-12.5) H 06/11/17 07:50 INR 1.29 (0.93-1.08) H 06/11/17 07:50 APTT 30.8 Seconds (25.1-36.5) 06/11/17 07:50 - Constitutional Appears: Non-toxic - Head Exam Head Exam: NORMAL INSPECTION - Cardiovascular Exam Cardiovascular Exam: +S1, +S2 - GI/Abdominal Exam GI & Abdominal Exam: Soft. absent: Tenderness Assessment and Plan - Assessment and Plan (Free Text) Plan: Assessment right foot gangrene with probable osteomyelitis - for AKA today bilateral gangrenous heel ulcers S/P debridement, growing MRSA, PRoteus and E. faecalis; there is evidence of osteomyelitis on MRI of the left heel (calcaneus) change in sensorium, etiology to be determined Possible hemochromatosis DM HTN dyslipidemia ESRD on HD renal cancer S/P partial nephrectomy hepatitis B and C infection history of bullous pemphigoid CAD Plan continue Zyvox and Zosyn - follow up OR findings will continue to monitor clinically overall prognosis is poor
[2017-06-12] MEDS: Piperacillin/Tazobact 2.25gm 2.25 GM/100 ML BAG IV SCH ×3 (05:29→23:00)
--- NOTE | 2017-06-12 09:38 | CP.PCM.PN ---
Subjective - Date & Time of Evaluation Date of Evaluation: 06/12/17 Time of Evaluation: 09:37 - Subjective Subjective: General surgery progress note for Dr. Joy Objective - Vital Signs/Intake and Output Vital Signs (last 24 hours): Temp Pulse Resp BP Pulse Ox 98.6 F 60 20 118/56 L 98 06/12/17 07:00 06/12/17 07:00 06/12/17 07:00 06/12/17 07:00 06/12/17 07:00 Intake and Output: 06/12/17 06/12/17 06:59 18:59 Intake Total 0 Output Total 150 Balance -150 - Medications Medications: Current Medications Amlodipine Besylate (Norvasc) 10 mg GT DAILY [facility] Last Admin: 06/11/17 10:00 Dose: Not Given Carvedilol (Coreg) 6.25 mg GT BID [facility] Last Admin: 06/11/17 18:52 Dose: 6.25 mg Cinacalcet (Sensipar) 30 mg PO DAILY [facility] Last Admin: 06/11/17 15:20 Dose: 30 mg Donepezil HCl (Aricept) 10 mg GT HS [facility] Last Admin: 06/11/17 22:43 Dose: 10 mg Heparin Sodium (Porcine) (Heparin) 5,000 units SC Q12 [facility] PRN Reason: Protocol Hydralazine HCl (Apresoline) 100 mg GT TID [facility] Last Admin: 06/11/17 18:52 Dose: 100 mg Hydromorphone HCl (Dilaudid) 0.5 mg IVP Q4H PRN PRN Reason: Pain, moderate (4-7) Linezolid (Zyvox 600mg/300ml D5w) 600 mg in 300 mls @ 200 mls/hr IVPB Q12 [facility] PRN Reason: Protocol Stop: 06/14/17 10:01 Last Admin: 06/11/17 22:58 Dose: 200 mls/hr Piperacillin Sod/Tazobactam Sod (Zosyn 2.25 Gm In 0.9% 100 Ml) 2.25 gm in 100 mls @ 100 mls/hr IV Q8 [facility] PRN Reason: Protocol Stop: 06/19/17 22:01 Last Admin: 06/12/17 05:29 Dose: 100 mls/hr Non-Formulary Medication (Amino Ac/Protein Hydr/Whey Pro [Prosource Plus Liquid Packet]) 30 ml GT DAILY [facility] Last Admin: 06/11/17 10:00 Dose: Not Given Non-Formulary Medication (Vitamin B Complex [Super B-50 Complex]) 1 cap GT DAILY [facility] Last Admin: 06/11/17 15:20 Dose: Not Given Pregabalin (Lyrica) 50 mg GT TID [facility] Last Admin: 06/11/17 18:53 Dose: 50 mg Silver Sulfadiazine (Silvadene 1% 25 Gm) 0 gm TP MWF [facility] Last Admin: 06/11/17 10:00 Dose: Not Given Valsartan (Diovan) 320 mg GT DAILY [facility] Last Admin: 06/11/17 10:00 Dose: 320 mg - Labs Labs: 06/11/17 07:50 06/11/17 07:50 PT 14.9 SECONDS (9.4-12.5) H 06/11/17 07:50 INR 1.29 (0.93-1.08) H 06/11/17 07:50 APTT 30.8 Seconds (25.1-36.5) 06/11/17 07:50 Assessment and Plan - Assessment and Plan (Free Text) Assessment: Assessment and Plan 76yo M with right distal lower extremity dry gangrene - Right foot cx: MRSA - Patient tolerated Right AKA yesterday - Continue IV Abx - Further recs per Dr. Joy
[2017-06-12] MEDS: Linezolid 600 mg in D5W 300 ml 600 MG/300 ML BAG IVPB SCH ×2 (10:00→22:06)
[2017-06-12 10:01] LABS: BASO # 0.04 K/mm3 (0.0-2.0); BASO % 0.3 % (0.0-3.0); EOS # 0.2 (0.0-0.7); EOS % 1.7 % (1.5-5.0); GRAN # 9.53 (1.4-6.5); GRAN % 77.8 % (50.0-68.0); HEMOGLOBIN 7.7 g/dL (14.0-18.0); LYMPH # 1.6 (1.2-3.4); LYMPH % 12.7 % (22.0-35.0); MEAN CELL VOLUME 81.6 fl (80.0-105.0); MEAN CORPUSCULAR HEMOGLOBIN 26.3 pg (25.0-35.0); MEAN CORPUSCULAR HGB CONC 32.2 g/dl (31.0-37.0); MEAN PLATELET VOLUME 10.1 fl (7.0-11.0); MONO # 0.9 (0.1-0.6); MONO % 7.5 % (1.0-6.0); RBC 2.93 10^6/uL (3.5-6.1); RED CELL DISTRIBUTION WIDTH 17.5 % (11.5-14.5); WHITE BLOOD COUNT 12.3 10^3/ul (4.5-11.0)
[2017-06-12 10:24] LABS: ALB/GLOB RATIO 0.6 (1.1-1.8); ALBUMIN 2.3 g/dL (3.0-4.8); BILIRUBIN,DIRECT 0.6 mg/dL (0.0-0.4); CALCIUM 8.4 mg/dL (8.4-10.5)
--- NOTE | 2017-06-12 12:06 | PN ---
DATE: 06/12/2017 REASON FOR CONSULTATION AND FOLLOWUP: Preop evaluation, risk stratification and postop followup status post right AKA. SUBJECTIVE: The patient denies any chest pain, shortness of breath, any palpitation. Denies any pain except some pain at operative site. OBJECTIVE: GENERAL: Not in any apparent distress. VITAL SIGNS: Temperature afebrile, heart rate 60, blood pressure 118/56. HEENT: PERRLA. Extraocular muscles intact. NECK: Supple. No carotid bruit. No thyromegaly. CHEST: Clear to auscultation. HEART: S1 and S2 regular. ABDOMEN: Soft. EXTREMITIES: Clubbing and cyanosis negative. LABORATORY DATA: Blood workup as follows. WBC 12.3, hemoglobin 7.7, hematocrit 23.9. Sodium 129, potassium 4.1, chloride 94, carbon dioxide of 23, anion gap of 16, BUN 84, creatinine 3.9. IMPRESSION: Severe peripheral arterial disease, end-stage renal disease, dialysis, hypertension, hyperlipidemia, diabetes, status post right above-knee amputation yesterday, before the patient had left above-knee amputation. RECOMMENDATION: Adequate analgesia. Continue Coreg. Continue hydralazine. Dialysis. Followup. Monitor H and H. Consider packed RBC transfusion during dialysis. We will follow with you. We will administer 2 units of packed RBC during dialysis. Thank you, Dr. Aguirre for providing us the opportunity in taking care of Parris Cabral. Ulysses Flaherty MD
[2017-06-12] MEDS: PROTEIN HYDR GT SCH (12:21)
[2017-06-12] MEDS: WHEY PRO GT SCH (12:21)
[2017-06-12] MEDS: AMINO AC GT SCH (12:21)
[2017-06-12] MEDS: [UNRECOGNIZED DRUG - OTHER] GT SCH (12:21)
[2017-06-12] MEDS: Non Formulary Medication (Vitamin B Complex [Super B-50 Complex] 1 CAP) GT SCH (17:29)
--- NOTE | 2017-06-12 21:33 | CP.PCM.PN ---
Subjective - Date & Time of Evaluation Date of Evaluation: 06/12/17 Time of Evaluation: 10:00 - Subjective Subjective: Patient seen on HD; more alert and able to answer yes/no questions; BP noted to be low/normal; Objective - Vital Signs/Intake and Output Vital Signs (last 24 hours): Temp Pulse Resp BP Pulse Ox 98 F 59 L 16 106/51 L 98 06/12/17 11:53 06/12/17 17:26 06/12/17 11:53 06/12/17 18:01 06/12/17 07:00 Intake and Output: 06/12/17 06/13/17 18:59 06:59 Intake Total 355 Balance 355 - Medications Medications: Current Medications Amlodipine Besylate (Norvasc) 10 mg GT DAILY [facility] Last Admin: 06/12/17 18:01 Dose: 10 mg Carvedilol (Coreg) 6.25 mg GT BID [facility] Last Admin: 06/12/17 18:01 Dose: Not Given Cinacalcet (Sensipar) 30 mg PO DAILY [facility] Last Admin: 06/12/17 17:59 Dose: 30 mg Donepezil HCl (Aricept) 10 mg GT HS [facility] Last Admin: 06/11/17 22:43 Dose: 10 mg Heparin Sodium (Porcine) (Heparin) 5,000 units SC Q12 [facility] PRN Reason: Protocol Last Admin: 06/12/17 10:00 Dose: Not Given Hydralazine HCl (Apresoline) 100 mg GT TID [facility] Last Admin: 06/12/17 17:26 Dose: Not Given Hydromorphone HCl (Dilaudid) 0.5 mg IVP Q4H PRN PRN Reason: Pain, moderate (4-7) Linezolid (Zyvox 600mg/300ml D5w) 600 mg in 300 mls @ 200 mls/hr IVPB Q12 [facility] PRN Reason: Protocol Stop: 06/14/17 10:01 Last Admin: 06/12/17 10:00 Dose: Not Given Piperacillin Sod/Tazobactam Sod (Zosyn 2.25 Gm In 0.9% 100 Ml) 2.25 gm in 100 mls @ 100 mls/hr IV Q8 [facility] PRN Reason: Protocol Stop: 06/19/17 22:01 Last Admin: 06/12/17 14:00 Dose: Not Given Non-Formulary Medication (Amino Ac/Protein Hydr/Whey Pro [Prosource Plus Liquid Packet]) 30 ml GT DAILY [facility] Last Admin: 06/12/17 12:21 Dose: Not Given Non-Formulary Medication (Vitamin B Complex [Super B-50 Complex]) 1 cap GT DAILY [facility] Last Admin: 06/12/17 17:29 Dose: Not Given Pregabalin (Lyrica) 50 mg GT TID [facility] Last Admin: 06/12/17 17:58 Dose: 50 mg Silver Sulfadiazine (Silvadene 1% 25 Gm) 0 gm TP MWF [facility] Last Admin: 06/11/17 10:00 Dose: Not Given Valsartan (Diovan) 320 mg GT DAILY [facility] Last Admin: 06/12/17 10:00 Dose: Not Given - Labs Labs: 06/12/17 09:30 06/12/17 09:30 PT 14.9 SECONDS (9.4-12.5) H 06/11/17 07:50 INR 1.29 (0.93-1.08) H 06/11/17 07:50 APTT 30.8 Seconds (25.1-36.5) 06/11/17 07:50 - Constitutional Appears: Non-toxic, No Acute Distress - Eye Exam Eye Exam: absent: Scleral icterus - ENT Exam ENT Exam: Mucous Membranes Moist - Respiratory Exam Respiratory Exam: Clear to Ausculation Bilateral. absent: Respiratory Distress - Cardiovascular Exam Cardiovascular Exam: RRR, +S1, +S2 - GI/Abdominal Exam GI & Abdominal Exam: Soft. absent: Distended, Tenderness - Extremities Exam Additional comments: mild edema of dependent area - Neurological Exam Neurological Exam: Alert, Awake - Psychiatric Exam Psychiatric exam: absent: Agitated - Skin Skin Exam: Warm. absent: Cyanosis Assessment and Plan (1) Gangrene of right foot Assessment & Plan: now s/p R AKA; on zosyn and linezolid; continue to dose abx for ESRD; Status: Acute (2) ESRD (end stage renal disease) Assessment & Plan: Stable electrolyte status; BP low/normal, cutting back UF goal on HD today; next HD for ; Status: Chronic (3) Anemia in ESRD (end-stage renal disease) Assessment & Plan: s/p 1 u prbc in OR yesterday; mild hgb drop so transfusing another unit prbc on HD today for patient who we are having difficulty maintaining hgb > 7 as outpatient despite high doses of EPO; Status: Acute (4) Chronic kidney disease-mineral and bone disorder Assessment & Plan: Hypercalcemia; continue cinacalcet 30 mg daily via G-tube; Status: Acute (5) Hypertensive CKD, ESRD on dialysis Assessment & Plan: BP on lower end of normal in the setting of possible sepsis from foot ulcer; limiting UF on HD; continue BP meds as tolerated; Status: Acute (6) Hepatitis B Status: Chronic
--- NOTE | 2017-06-13 04:23 | PN ---
DATE: 06/12/2017 SUBJECTIVE: The patient is in bed, in no acute distress, nontoxic. The patient was seen earlier this morning in room 576, bed 1. PHYSICAL EXAMINATION: VITAL SIGNS: Temperature is 98, blood pressure is 106/50, respiratory rate 20. HEENT: Unremarkable. NECK: Supple. LUNGS: Have decreased breath sounds. HEART: Normal S1, S2. ABDOMEN: Soft. LABORATORY EXAMINATION: Reveals a white count is up to 12,300. Chemistries; BUN of 84, creatinine of 3.9. Urinalysis is noted. Microbiology reveals Proteus mirabilis, group B strep, and E. Coli from the sacrum. The right foot has right foot has MRSA. Review of medications reveals the patient is on linezolid and Zosyn. ASSESSMENT AND PLAN: This is a 76-year-old male with right foot pain, probable osteomyelitis, bilateral gangrene and ulcer, currently on Zyvox and Zosyn.. The patient had surgery yesterday [id number] amputation. We will check on the OR cultures and pathology make further recommendations Ibrahima Lara MD
[2017-06-13] MEDS: Piperacillin/Tazobact 2.25gm 2.25 GM/100 ML BAG IV SCH ×3 (05:47→21:17)
[2017-06-13 08:10] LABS: HEMOGLOBIN 8.3 g/dL (14.0-18.0); MEAN CELL VOLUME 82.6 fl (80.0-105.0); MEAN CORPUSCULAR HEMOGLOBIN 26.2 pg (25.0-35.0); MEAN CORPUSCULAR HGB CONC 31.7 g/dl (31.0-37.0); MEAN PLATELET VOLUME 10.5 fl (7.0-11.0); RBC 3.17 10^6/uL (3.5-6.1); RED CELL DISTRIBUTION WIDTH 17.4 % (11.5-14.5); WHITE BLOOD COUNT 8.5 10^3/ul (4.5-11.0)
--- NOTE | 2017-06-13 09:47 | PN ---
DATE: 06/11/2017 SUBJECTIVE: The patient is status post right leg above knee amputation. The patient is in the bed, comfortable. He has a drain with local site clean . He also responded to touching his face. He opened his eyes. He talked. The patient is lethargic from post anesthesia. Respiration is comfortable. No distress. PHYSICAL EXAMINATION: VITAL SIGNS: Temperature 98, heart rate 63, blood pressure 128/58, respirations 18, saturating 99% on room air. HEAD AND NECK: Normal. No JVD. No thyromegaly. CHEST: Clear bilateral. CARDIAC: First sound and second sound normal. ABDOMEN: Soft, PEG site is clean, nontender. EXTREMITIES: As I noted, left above-knee amputation with right leg recent above-knee amputation connected to a local anesthesia catheter. NEUROLOGIC: Patient responds, waken up. He open his eyes. He responded. He talked, but lethargic. LABORATORY DATA: 06/11/2017. White count 10.2, hemoglobin 8.6, hematocrit 27.6, and platelets 133. Chemistry: Sodium 131, potassium 3.9, chloride 95, bicarbonate 26. BUN 71, creatinine 3. Glucose 94. Calcium is 9. Blood sugar 98. IMPRESSION AND PLAN: 1. Status post above-knee amputation, right leg, continue local anesthesia, continue current therapy. Follow up with surgical team. 2. Severe peripheral vascular disease, both legs, that is the reason for amputations. The patient currently has both legs above-knee amputations, seems comfortable with current regimen of pain management. 3. Chronic renal failure, on hemodialysis, continue hemodialysis. 4, Dysphagia, history of stroke, dementia. PEG site clean, continue feeding tube as tolerated. 5. History of chronic hepatitis B, renal mass, no surgical intervention for his kidney. 6. Hypertension, stable. Continue amlodipine, continue carvedilol, continue losartan. Patient seems doing well with that and hydralazine, he is doing good on 100 mg t.i.d. Continue current blood pressure medicines, stable hemodynamically, ____ continue IV antibiotics Zyvox and Unasyn, and follow up with ID consult. Patient pain medications were controlled. We will send him back to nursing room to be followed as outpatient. Continue current medication, which is ProSource plus liquid packet tube daily, hydralazine 100 t.i.d., Aricept 10 mg once a day, Coreg 6.25 b.i.d. Dilaudid p.r.n. 0.5 mg IV q. 4 hours, Diovan 320 mg a day, heparin for DVT prophylaxis 5000 q.12, Lyrica 50 three times a day, Norvasc 10 mg once a day, Sensipar 30 mg p.o. daily, Silvadene on sacral decubitus and surgery site, vitamin B50 complex once a day, Zosyn 2.25 g IV q. 8 hours, and Zyvox 600 mg q.12. Continue current treatment. Follow up clinically . The patient seems comfortable. Barber Aguirre MD
[2017-06-13] MEDS: AMINO AC GT SCH (09:53)
[2017-06-13] MEDS: WHEY PRO GT SCH (09:53)
[2017-06-13] MEDS: PROTEIN HYDR GT SCH (09:53)
[2017-06-13] MEDS: [UNRECOGNIZED DRUG - OTHER] GT SCH (09:53)
[2017-06-13] MEDS: Non Formulary Medication (Vitamin B Complex [Super B-50 Complex] 1 CAP) GT SCH (09:57)
[2017-06-13] MEDS: Linezolid 600 mg in D5W 300 ml 600 MG/300 ML BAG IVPB SCH (09:57)
[2017-06-13] MEDS ORDERED: HYDROmorphone 1 mg/ml ISec IVP PRN (12:41)
--- NOTE | 2017-06-13 12:57 | PN ---
DATE: 06/12/2017 SUBJECTIVE: The patient is status post surgery, the patient currently getting hemodialysis and blood transfusions, he is doing well. No chest pain. Not short of breath. He is more awake. He opens his eyes, but not talking much. PHYSICAL EXAMINATION: VITAL SIGNS: Temperature is 98, heart rate is 64, blood pressure is 104/52, respirations 16, and saturating 97%. HEAD AND NECK: Normal. No JVD. No thyromegaly. CHEST: Clear. CARDIAC: First sound and second sound normal. ABDOMEN: Soft, nontender. PEG tube site clean. EXTREMITIES: Right above-knee amputation with recent stump and local anesthesia for the surgery site. His left leg is above-knee amputation, old and healed. LABORATORY DATA: White count 12.3, hemoglobin 7.7, hematocrit 23.9, and platelets 149,000. His chemistry is noted for sodium 129, potassium 4.1, chloride 94, bicarbonate 26, BUN 84, creatinine 3.9, and blood sugar is 189. His phosphorus 5.7. AST and ALT is normal. Alkaline phosphatase normal. IMPRESSION AND PLAN 1. Status post right above-knee amputation, continue local wound care and continue pain management. The patient getting Dilaudid in addition to local medications. Also, the patient has been on Zyvox 600 IV q. 12 and also, on Zosyn 2.25 g IV q. 8 hours. Continue current IV antibiotics. 2. Anemia, the patient getting transfusion, two packed RBCs. We will monitor his hemoglobin in the morning. We will follow up on that. 3. Hypertension, stable. Continue hydralazine, Coreg and Diovan plus Norvasc. Blood pressure is stable. Continue current blood pressure medicines. 4. Chronic renal failure with chronic anemia. Continue hemodialysis. The patient is stable. Continue gastrointestinal and deep vein thrombosis prophylaxis. We will follow up medically. Barber Aguirre MD
--- NOTE | 2017-06-13 13:21 | CP.PCM.PN ---
Subjective - Date & Time of Evaluation Date of Evaluation: 06/13/17 Time of Evaluation: 13:08 - Subjective Subjective: Surgery: Dr. Joy No acute events overnight. Per nursing, pérez output 50cc/12hr. Objective - Vital Signs/Intake and Output Vital Signs (last 24 hours): Temp Pulse Resp BP Pulse Ox 98.6 F 78 18 131/58 L 100 06/13/17 07:00 06/13/17 07:00 06/13/17 07:00 06/13/17 09:56 06/13/17 07:00 Intake and Output: 06/13/17 06/13/17 06:59 18:59 Intake Total 0 Output Total 50 Balance -50 - Medications Medications: Current Medications Amlodipine Besylate (Norvasc) 10 mg GT DAILY [facility] Last Admin: 06/13/17 09:56 Dose: Not Given Carvedilol (Coreg) 6.25 mg GT BID [facility] Last Admin: 06/13/17 09:54 Dose: 6.25 mg Cinacalcet (Sensipar) 30 mg PO DAILY [facility] Last Admin: 06/13/17 09:56 Dose: 30 mg Donepezil HCl (Aricept) 10 mg GT HS [facility] Last Admin: 06/12/17 23:06 Dose: 10 mg Heparin Sodium (Porcine) (Heparin) 5,000 units SC Q12 [facility] PRN Reason: Protocol Last Admin: 06/13/17 09:55 Dose: 5,000 units Hydralazine HCl (Apresoline) 100 mg GT TID [facility] Last Admin: 06/13/17 09:54 Dose: Not Given Hydromorphone HCl (Dilaudid) 0.5 mg IVP Q4H PRN PRN Reason: Pain, moderate (4-7) Linezolid (Zyvox 600mg/300ml D5w) 600 mg in 300 mls @ 200 mls/hr IVPB Q12 [facility] PRN Reason: Protocol Stop: 06/14/17 10:01 Last Admin: 06/13/17 09:57 Dose: 200 mls/hr Piperacillin Sod/Tazobactam Sod (Zosyn 2.25 Gm In 0.9% 100 Ml) 2.25 gm in 100 mls @ 100 mls/hr IV Q8 [facility] PRN Reason: Protocol Stop: 06/19/17 22:01 Last Admin: 06/13/17 05:47 Dose: 100 mls/hr Non-Formulary Medication (Amino Ac/Protein Hydr/Whey Pro [Prosource Plus Liquid Packet]) 30 ml GT DAILY [facility] Last Admin: 06/13/17 09:53 Dose: Not Given Non-Formulary Medication (Vitamin B Complex [Super B-50 Complex]) 1 cap GT DAILY [facility] Last Admin: 06/13/17 09:57 Dose: Not Given Pregabalin (Lyrica) 50 mg GT TID [facility] Last Admin: 06/13/17 09:55 Dose: 50 mg Silver Sulfadiazine (Silvadene 1% 25 Gm) 0 gm TP MWF [facility] Last Admin: 06/11/17 10:00 Dose: Not Given Valsartan (Diovan) 320 mg GT DAILY [facility] Last Admin: 06/13/17 09:55 Dose: Not Given - Labs Labs: 06/13/17 07:30 06/12/17 09:30 PT 14.9 SECONDS (9.4-12.5) H 06/11/17 07:50 INR 1.29 (0.93-1.08) H 06/11/17 07:50 APTT 30.8 Seconds (25.1-36.5) 06/11/17 07:50 - Constitutional Appears: Non-toxic, No Acute Distress - Head Exam Head Exam: ATRAUMATIC, NORMOCEPHALIC - Eye Exam Eye Exam: EOMI, Normal appearance - ENT Exam ENT Exam: Mucous Membranes Moist - Respiratory Exam Respiratory Exam: NORMAL BREATHING PATTERN. absent: Respiratory Distress - Cardiovascular Exam Cardiovascular Exam: REGULAR RHYTHM. absent: Tachycardia - Extremities Exam Additional comments: right AKA with JUSTA and OnQ in place JUSTA output SA fluid 50cc/12hr - Neurological Exam Neurological Exam: Alert, Awake - Skin Skin Exam: Dry, Normal Color, Warm Assessment and Plan - Assessment and Plan (Free Text) Assessment: 76 y/o male with gangrene to the right foot s/p right AKA POD2 Plan: -cont to monitor pérez output -OnQ with medication will increase dose -plan to remove pérez drain and OnQ tomorrow if output less that 50cc/24hr -cont routine post op care -d/w Dr. Rufino [employer] PGY3
--- NOTE | 2017-06-13 13:43 | PN ---
DATE: 06/13/2017 LOCATION: The patient is in room 576, bed 1. REASON FOR CONSULTATION: Followup, preop evaluation, risk stratification for amputation right-above knee, renal failure, on dialysis, severe peripheral vascular disease. The patient is status post right leg above-knee amputation. SUBJECTIVE: The patient is lying flat in bed without chest pain, shortness of breath, palpitation. PHYSICAL EXAMINATION: VITAL SIGNS: Blood pressure 131/58, respirations 18, pulse 78, temperature 98.6. HEENT: Head is normocephalic. Eyes: Pupils normal. Conjunctivae pale. NECK: JVP low. Carotids equal. THORAX: AP diameter normal. LUNGS: Clear. CARDIOVASCULAR: S1 and S2. EXTREMITIES: Paresthesia as mentioned before. The patient's left leg is old amputation, healed stump. Right leg is new above-knee amputation. LABORATORY DATA: WBC 8.5, hemoglobin 8.3, hematocrit 26.2, platelet 142. Random sugar 162, sodium 129, potassium 4.1, BUN 84, creatinine 3.9, phosphorus 5.7, calcium 8.4. AST, ALT normal. Total protein 6.2, albumin 2.3. DIAGNOSES: Severe peripheral vascular disease, status post amputation above-knee right; left leg above-knee amputation old, which is already healed; end-stage renal failure, on dialysis; hypertension; hyperlipidemia; diabetes mellitus; anemia. PLAN: The patient also has feeding tube. The patient is getting hydralazine 100 mg t.i.d., Aricept 10 mg at bedtime, Coreg 6.25 b.i.d., Diovan 320 daily, Lyrica 50 t.i.d., amlodipine 10 daily, heparin 5000 units subcu q. 12 hours, Protonix 40 IV stat dose ordered by Dr. Aguirre. The patient is on Zosyn 2.25 g IV q. 8 hours. The patient is also on linezolid 600 mg IV q. 12 hours. We will continue present therapy. We will follow. Ulysses Gama MD
[2017-06-13] MEDS: Silver Sulfadiazine 1% Cream (25 gm) TP SCH (18:30)
--- NOTE | 2017-06-13 19:11 | CP.PCM.PN ---
Subjective - Date & Time of Evaluation Date of Evaluation: 06/13/17 Time of Evaluation: 11:00 - Subjective Subjective: Patient denies pain; otherwise mostly non-verbal; continues to have output from wound drain; Objective - Vital Signs/Intake and Output Vital Signs (last 24 hours): Temp Pulse Resp BP Pulse Ox 98.6 F 78 18 140/70 100 06/13/17 07:00 06/13/17 07:00 06/13/17 07:00 06/13/17 18:32 06/13/17 07:00 Intake and Output: 06/13/17 06/14/17 18:59 06:59 Intake Total 0 Balance 0 - Medications Medications: Current Medications Amlodipine Besylate (Norvasc) 10 mg GT DAILY [facility] Last Admin: 06/13/17 09:56 Dose: Not Given Carvedilol (Coreg) 6.25 mg GT BID [facility] Last Admin: 06/13/17 18:32 Dose: 6.25 mg Cinacalcet (Sensipar) 30 mg PO DAILY [facility] Last Admin: 06/13/17 09:56 Dose: 30 mg Donepezil HCl (Aricept) 10 mg GT HS [facility] Last Admin: 06/12/17 23:06 Dose: 10 mg Heparin Sodium (Porcine) (Heparin) 5,000 units SC Q12 [facility] PRN Reason: Protocol Last Admin: 06/13/17 09:55 Dose: 5,000 units Hydralazine HCl (Apresoline) 100 mg GT TID [facility] Last Admin: 06/13/17 18:31 Dose: 100 mg Hydromorphone HCl (Dilaudid) 0.5 mg IVP Q4H PRN PRN Reason: Pain, moderate (4-7) Piperacillin Sod/Tazobactam Sod (Zosyn 2.25 Gm In 0.9% 100 Ml) 2.25 gm in 100 mls @ 100 mls/hr IV Q8 [facility] PRN Reason: Protocol Stop: 06/19/17 22:01 Last Admin: 06/13/17 14:55 Dose: 100 mls/hr Linezolid (Zyvox) 600 mg PO BID [facility] PRN Reason: Protocol Stop: 06/23/17 10:01 Non-Formulary Medication (Amino Ac/Protein Hydr/Whey Pro [Prosource Plus Liquid Packet]) 30 ml GT DAILY [facility] Last Admin: 06/13/17 09:53 Dose: Not Given Non-Formulary Medication (Vitamin B Complex [Super B-50 Complex]) 1 cap GT DAILY [facility] Last Admin: 06/13/17 09:57 Dose: Not Given Pregabalin (Lyrica) 50 mg GT TID [facility] Last Admin: 06/13/17 18:31 Dose: 50 mg Silver Sulfadiazine (Silvadene 1% 25 Gm) 0 gm TP MWF [facility] Last Admin: 06/13/17 18:30 Dose: Not Given Valsartan (Diovan) 320 mg GT DAILY [facility] Last Admin: 06/13/17 09:55 Dose: Not Given - Labs Labs: 06/13/17 07:30 06/12/17 09:30 PT 14.9 SECONDS (9.4-12.5) H 06/11/17 07:50 INR 1.29 (0.93-1.08) H 06/11/17 07:50 APTT 30.8 Seconds (25.1-36.5) 06/11/17 07:50 - Constitutional Appears: Non-toxic, No Acute Distress - Eye Exam Eye Exam: absent: Scleral icterus - ENT Exam ENT Exam: Mucous Membranes Moist - Respiratory Exam Respiratory Exam: absent: Respiratory Distress Additional comments: shallow breaths; - Cardiovascular Exam Cardiovascular Exam: RRR, +S1, +S2 - GI/Abdominal Exam GI & Abdominal Exam: Soft. absent: Distended, Tenderness - Extremities Exam Additional comments: minimal edema of dependent area - Neurological Exam Neurological Exam: Alert, Awake - Psychiatric Exam Psychiatric exam: absent: Agitated - Skin Skin Exam: Warm. absent: Cyanosis Assessment and Plan (1) Gangrene of right foot Assessment & Plan: On linezolid and zosyn; continue to dose for ESRD; Status: Acute (2) ESRD (end stage renal disease) Assessment & Plan: Stable electrolyte and volume status; next HD tomorrow per routine; Status: Chronic (3) Anemia in ESRD (end-stage renal disease) Assessment & Plan: s/p 1 more u prbc as precautionary measure yesterday on HD, one more u ordered by cardio for HD tomorrow; s/p aranesp 200 mcg on 06/09, will re-dose on 06/16 if still here, otherwise to get EPO as outpatient; Status: Acute (4) Chronic kidney disease-mineral and bone disorder Assessment & Plan: Secondary hyperparathyroidism, continue cinacalcet 30 mg daily; no need for phos binders currently; Status: Acute (5) Hypertensive CKD, ESRD on dialysis Assessment & Plan: Normotensive but BP lower than usual in the setting of recent AKA/foot gangrene ; will likely set for minimal UF on HD tomorrow (less than his daily inputs); Status: Acute (6) Hepatitis B Status: Chronic
--- NOTE | 2017-06-13 23:17 | PN ---
DATE: 06/13/2017 SUBJECTIVE: The patient is in room 576, bed one. No fevers and no chills. The patient was seen early this morning. PHYSICAL EXAMINATION: VITAL SIGNS: Temperature is 98, blood pressure is 131/50, respiratory rate of 16. HEENT: Examination of HEENT is unremarkable. NECK: Supple. LUNGS: Have decreased breath sounds. HEART: Normal S1 and S2. ABDOMEN: Soft, nontender. LABORATORY DATA: Laboratory examination reveals a white count is 8.5, hemoglobin of 8, platelets of 142. Coagulation is noted. Chemistries reveals a BUN of 84, creatinine of 3.9. Urinalysis is noted. Microbiology is noted. Review of orders reveals the patient is on Zyvox and Zosyn. ASSESSMENT AND PLAN: A 76-year-old male seen earlier today in room 576, bed 1, who has severe peripheral vascular disease, status post right [id number] amputation and end-stage renal disease, on hemodialysis and hypertension, hyperlipidemia and diabetes mellitus, who is currently on Zyvox and Zosyn. The pathology of the leg reveals the margins appear viable. The microbiology notes Proteus mirabilis and beta hemolytic group Streptococcus and Escherichia coli. Proteus and Escherichia coli are noted to be sensitive to quinolones. The patient's right foot culture does have methicillin-resistant Staphylococcus aureus sensitive to tetracycline. The patient had the surgery on 06/11/2017, the right [id number] amputation by Dr. Joy. QTC on the EKG is 418. Upon discharge, may be able to switch to p.o. doxycycline and will may be able to use p.o. Levaquin with gram-negative pending the OR culture results. Short courses of antibiotics 5-7 days p.o. once the patient is available for discharge will be recommended. Ibrahima Lara MD
--- NOTE | 2017-06-14 01:14 | PN ---
DATE: SUBJECTIVE: Patient is comfortable in the bed, more awake, responding to calling his name. Daughter next to the bedside. He seems in no distress, seems his pain is controlled, and he seems doing well. PHYSICAL EXAMINATION: VITAL SIGNS: As follows: Temperature 98.6, heart rate 78, blood pressure 131/58, respirations 18, saturations 100%. HEENT: Head and neck exam, normal. No JVD. No thyromegaly. CHEST: Clear. Good air entry. CARDIAC: First sound and second sound are normal. Systolic murmur. ABDOMEN: Soft, nontender. PEG tube site is clean, nontender. EXTREMITIES: Bilateral above-knee amputations with recent right above-knee amputation and the patient's pain medicine has been maintained with local drainage of the wound. Patient is, otherwise, stable. NEUROLOGICAL: He moves extremities. He is awake and seems stable. IMPRESSION AND PLAN: 1. Status post right above-knee amputation due to dry gangrene, poor peripheral vascular disease. Recommendation is above-knee amputation done without complications, seems doing well. Continue local wound care. Continue local anesthesia and Dilaudid p.r.n. IV q.4 hours, 0.5 mg, and local wound care and hemostasis. 2. Hypertension, stable. Blood pressure is doing well. He is on Diovan, Norvasc, hydralazine, and Coreg 6.25 b.i.d. through the PEG tube. 3. Chronic renal failure, he is stable on hemodialysis. He did have hemodialysis yesterday. 4. Status post above-knee amputation, cellulitis, dry gangrene. Continue Zyvox and Zosyn as per ID consult, Dr. Lara. Continue gastrointestinal and deep venous thrombosis prophylaxis. Patient getting Protonix and heparin subcu. 5. Anemia. Patient is status post surgeries and multiple units of blood transfusions, usually his baseline hemoglobin is 7.6, 7.8, seems stable at this time. We will continue to follow up on that. Probably, he will benefit from Neupogen, Epogen during transfusion shots and also iron IV. We will leave that to the air traffic control equipment repairer, Dr. Garcia, and we will follow up clinically. Barber Aguirre MD
[2017-06-14] MEDS: Piperacillin/Tazobact 2.25gm 2.25 GM/100 ML BAG IV SCH ×2 (06:25→13:55)
[2017-06-14 07:50] VITALS: O2SAT 98
[2017-06-14 08:28] LABS: BASO # 0.02 K/mm3 (0.0-2.0); BASO % 0.2 % (0.0-3.0); EOS # 0.5 (0.0-0.7); EOS % 5.3 % (1.5-5.0); GRAN # 5.86 (1.4-6.5); GRAN % 69.1 % (50.0-68.0); HEMOGLOBIN 8.4 g/dL (14.0-18.0); LYMPH # 1.3 (1.2-3.4); LYMPH % 15.4 % (22.0-35.0); MEAN CELL VOLUME 82.9 fl (80.0-105.0); MEAN CORPUSCULAR HEMOGLOBIN 26.2 pg (25.0-35.0); MEAN CORPUSCULAR HGB CONC 31.6 g/dl (31.0-37.0); MEAN PLATELET VOLUME 10.4 fl (7.0-11.0); MONO # 0.9 (0.1-0.6); RBC 3.21 10^6/uL (3.5-6.1); RED CELL DISTRIBUTION WIDTH 17.9 % (11.5-14.5); WHITE BLOOD COUNT 8.5 10^3/ul (4.5-11.0)
[2017-06-14] MEDS ORDERED: HYDROmorphone 0.5 mg/0.5 ml ISec IVP PRN (08:40)
[2017-06-14 08:48] LABS: ALB/GLOB RATIO 0.6 (1.1-1.8); ALBUMIN 2.3 g/dL (3.0-4.8); CALCIUM 8.4 mg/dL (8.4-10.5)
[2017-06-14 10:43] VITALS: RESP 16
[2017-06-14 11:22] VITALS: TEMP 97.5
[2017-06-14] MEDS ORDERED: Potassium Chloride 40 mEq/30 ml LIQ UD PO ONE (13:29)
[2017-06-14] MEDS: [UNRECOGNIZED DRUG - OTHER] GT SCH (13:55)
[2017-06-14] MEDS: AMINO AC GT SCH (13:55)
[2017-06-14] MEDS: Non Formulary Medication (Vitamin B Complex [Super B-50 Complex] 1 CAP) GT SCH (13:55)
[2017-06-14] MEDS: WHEY PRO GT SCH (13:55)
[2017-06-14] MEDS: PROTEIN HYDR GT SCH (13:55)
--- NOTE | 2017-06-14 14:10 | PN ---
DATE: 06/14/2017 LOCATION: The patient in room 576, bed 1. REASON FOR CONSULTATION AND FOLLOWUP: Cardiac evaluation; status post amputation of right leg above knee; renal failure, on dialysis; severe peripheral vascular disease. SUBJECTIVE: The patient is lying flat, having dialysis without any chest pain, shortness of breath, palpitation. PHYSICAL EXAMINATION: VITAL SIGNS: Blood pressure 132/61, respirations 16, pulse 61, temperature 97.5. HEENT: Head is normocephalic. Eyes: Pupils normal. Conjunctivae pale. NECK: JVP low. Carotids equal. THORAX: AP diameter normal. LUNGS: Clear. CARDIOVASCULAR: S1 and S2. ABDOMEN: Soft. No tenderness. No organomegaly. PERIPHERIES: The patient has old above-knee left leg amputation, new is right leg above-knee amputation. LABORATORY DATA: WBC 8.5, hemoglobin 8.4, hematocrit 26.6, platelets 162. Sodium 132, potassium 3.5, BUN 65, creatinine 3.0, calcium 8.4, phosphorus 3.6, total protein 6.2, albumin 2.3. DIAGNOSES: Severe peripheral vascular disease, status post amputation above-knee on the right leg, old above-knee amputation of the left leg; end-stage renal failure, on dialysis; hypertension; hyperlipidemia; diabetes mellitus; anemia; hypokalemia. PLAN: The patient is getting feeding tube and getting medicine through that. We will continue same therapy with carvedilol 6.25 b.i.d., Diovan 320, heparin 5000 units q. 12 hours, Lyrica 50 t.i.d., amlodipine 10 daily. The patient is on Zosyn 2.25 g IV q. 8 hours, Zyvox 600 b.i.d. Clinically, cardiac status is stable at this time. Ulysses Gama MD
--- NOTE | 2017-06-14 14:52 | PN ---
DATE: 04/13/2018 Parris Cabral is seen, lying in bed. The wound looks beautiful. The drains will be removed today. Alejandro Joy MD
[2017-06-14] MEDS ORDERED: oxyCODONE 10 mg Immediate Release Tab PO PRN (15:08)
[2017-06-14] MEDS ORDERED: oxyCODONE 5 mg Immediate Release Tab PO PRN (15:09)
[2017-06-14 18:48] VITALS: BP 144/60; PULSE 68
--- NOTE | 2017-06-14 19:25 | CP.PCM.PN ---
Subjective - Date & Time of Evaluation Date of Evaluation: 06/14/17 Time of Evaluation: 11:00 - Subjective Subjective: Patient denies any complaints (no pain); mostly non-verbal; Objective - Vital Signs/Intake and Output Vital Signs (last 24 hours): Temp Pulse Resp BP Pulse Ox 97.5 F L 68 16 144/60 98 06/14/17 11:21 06/14/17 18:36 06/14/17 11:21 06/14/17 18:36 06/14/17 07:49 Intake and Output: 06/14/17 06/15/17 18:59 06:59 Intake Total 1199 Balance 1199 - Medications Medications: Current Medications Amlodipine Besylate (Norvasc) 10 mg GT DAILY [facility] Last Admin: 06/14/17 13:51 Dose: 10 mg Carvedilol (Coreg) 6.25 mg GT BID [facility] Last Admin: 06/14/17 18:34 Dose: 6.25 mg Cinacalcet (Sensipar) 30 mg PO DAILY [facility] Last Admin: 06/14/17 13:52 Dose: 30 mg Donepezil HCl (Aricept) 10 mg GT HS [facility] Last Admin: 06/13/17 21:21 Dose: 10 mg Heparin Sodium (Porcine) (Heparin) 5,000 units SC Q12 [facility] PRN Reason: Protocol Last Admin: 06/14/17 13:50 Dose: 5,000 units Hydralazine HCl (Apresoline) 100 mg GT TID [facility] Last Admin: 06/14/17 18:36 Dose: 100 mg Piperacillin Sod/Tazobactam Sod (Zosyn 2.25 Gm In 0.9% 100 Ml) 2.25 gm in 100 mls @ 100 mls/hr IV Q8 [facility] PRN Reason: Protocol Stop: 06/19/17 22:01 Last Admin: 06/14/17 13:55 Dose: 100 mls/hr Linezolid (Zyvox) 600 mg PO BID [facility] PRN Reason: Protocol Stop: 06/23/17 10:01 Last Admin: 06/14/17 18:34 Dose: 600 mg Non-Formulary Medication (Amino Ac/Protein Hydr/Whey Pro [Prosource Plus Liquid Packet]) 30 ml GT DAILY [facility] Last Admin: 06/14/17 13:55 Dose: Not Given Non-Formulary Medication (Vitamin B Complex [Super B-50 Complex]) 1 cap GT DAILY [facility] Last Admin: 06/14/17 13:55 Dose: Not Given Oxycodone HCl (Oxycodone Immediate Release Tab) 10 mg PO Q4H PRN PRN Reason: Pain, severe (8-10) Oxycodone HCl (Oxycodone Immediate Release Tab) 5 mg PO Q4H PRN PRN Reason: Pain, moderate (4-7) Pregabalin (Lyrica) 50 mg GT TID [facility] Last Admin: 06/14/17 18:35 Dose: 50 mg Silver Sulfadiazine (Silvadene 1% 25 Gm) 0 gm TP MWF [facility] Last Admin: 06/13/17 18:30 Dose: Not Given Valsartan (Diovan) 320 mg GT DAILY [facility] Last Admin: 06/14/17 13:51 Dose: 320 mg - Labs Labs: 06/14/17 08:10 06/14/17 08:10 PT 14.9 SECONDS (9.4-12.5) H 06/11/17 07:50 INR 1.29 (0.93-1.08) H 06/11/17 07:50 APTT 30.8 Seconds (25.1-36.5) 06/11/17 07:50 - Constitutional Appears: Non-toxic, No Acute Distress - Eye Exam Eye Exam: absent: Scleral icterus - ENT Exam ENT Exam: Mucous Membranes Moist - Respiratory Exam Respiratory Exam: absent: Respiratory Distress Additional comments: shallow breaths; - Cardiovascular Exam Cardiovascular Exam: RRR, +S1, +S2 - GI/Abdominal Exam GI & Abdominal Exam: Soft. absent: Distended - Extremities Exam Additional comments: minimal edema of dependent area - Neurological Exam Neurological Exam: Alert, Awake - Psychiatric Exam Psychiatric exam: absent: Agitated - Skin Skin Exam: Warm. absent: Cyanosis Assessment and Plan (1) Gangrene of right foot Status: Acute (2) ESRD (end stage renal disease) Assessment & Plan: Stable electrolyte and volume status; HD today per routine with net 1.5L UF, tolerating well; Status: Chronic (3) Anemia in ESRD (end-stage renal disease) Assessment & Plan: Getting 1 more u prbc today after receiving 1 u day before yesterday but not having appropriate rise in hgb; will continue high dose of EPO as outpatient; Status: Acute (4) Chronic kidney disease-mineral and bone disorder Assessment & Plan: On cinacalcet 30 mg daily for hypercalcemia and high PTH, continue; Status: Acute (5) Hypertensive CKD, ESRD on dialysis Assessment & Plan: BP lower than normal in the setting of recent heel infection and subsequent AKA ; may need to hold valsartan temporarily, will f/u as outpatient; Status: Acute (6) Hepatitis B Status: Chronic
--- NOTE | 2017-06-15 02:15 | PN ---
DATE: 06/14/2017 SUBJECTIVE: Patient is in bed, in no acute distress. PHYSICAL EXAMINATION: VITAL SIGNS: Temperature is 98, blood pressure is 140/60, respiratory rate of 18, heart rate of 61. HEENT: Unremarkable. NECK: Supple. LUNGS: Decreased breath sounds. HEART: Normal S1, S2. ABDOMEN: Soft, nontender. LABORATORY DATA: Reveals a white count of 8.5, hemoglobin of 8, platelets 162. Coagulation is noted. Chemistries reveal a BUN of 65, creatinine of 3.0. Urinalysis is noted and microbiology is noted. Patient Proteus and hemolytic streptococcus and E. coli and MRSA from the sacrum. ASSESSMENT AND PLAN: This is a 76-year-old male, seen earlier this morning, who has severe peripheral vascular disease status post [id number] amputation; end-stage renal disease, on hemodialysis; ; hyperlipidemia; diabetes. May be able to switch to p.o. antibiotics as discussed with the staff upon discharge. Ibrahima Lara MD
--- NOTE | 2017-06-16 08:44 | DS ---
HISTORY OF PRESENT ILLNESS: Status post right above-knee amputation by Dr. Joy. Patient had the surgery without any complications. The suction pump for drainage was removed. Local wound anesthetic was also removed. The patient is stable. He will be discharged to [facility]. ID recommend p.o. Levaquin 250 for 5 days and the patient seemed stable. No new complaint. He is more awake, more alert, responding better than before. PHYSICAL EXAMINATION: VITAL SIGNS: His temperature is 97.5, heart rate 61, blood pressure 142/61, respirations 18. HEAD AND NECK: Normal. No JVD. No thyromegaly. CHEST: Clear with good air entry. CARDIAC: First sound and second sound are normal. ABDOMEN: Soft, nontender. G-tube site is clean. EXTREMITIES: Both above-knee amputation with recent right above-knee amputation and local gauze wrapped around. LABORATORY DATA: White count 8.5, hemoglobin 8.4, hematocrit 26.6, platelet is 162. Chemistry: Sodium 132, potassium 3.5, chloride 98, bicarbonate 27, BUN 65, creatinine 3, blood sugar 148. Liver function test is normal. Alkaline phosphatase 149. The patient has total protein 6.2, which is good; albumin 2.3; globulin 3.9. DISCHARGE DIAGNOSES: 1. Right leg severe ischemia with dry gangrene. 2. Status post above-knee amputation. 3. Anemia, status post multiple units of transfusions. 4. Chronic renal failure, on hemodialysis. 5. Hypertension, controlled. 6. Generalized weakness. PLAN: Discharge the patient to [facility]. Continue Silvadene, local wound care, vitamin B complex, Sensipar once a day, Lyrica twice a day at 75, hydralazine, Diovan, Coreg, Norvasc, Aricept, and heparin subcutaneously q. 12. Continue current therapy. Barber Aguirre MD
--- NOTE | 2017-06-26 00:04 | OP ---
PROCEDURE DATE: 06/11/2017 PREOPERATIVE DIAGNOSIS: Ischemia of the right leg. POSTOPERATIVE DIAGNOSIS: Ischemia of the right leg. OPERATION PERFORMED: Above the knee amputation. SURGEON: Alejandro Joy MD MANUFACTURING COORDINATOR: DESCRIPTION OF PROCEDURE: After the patient was placed with a tourniquet on the right leg and after the leg was prepped and draped in the usual manner with a successful timeout, using a Coban and stockinette, the timeout was successful. The consent was examined as was the patient's name,number and wristband, the hao that I have made on the right leg indicating above the knee amputation on the right. The patient was exsanguinated twice with the pressure initially 250, going up to 350; however, there was still arterial bleeding even with these pressures. After the successful timeout waiting 33 minutes for the chlorhexidine to dry, a fish mouth was made on the skin in either side of the leg. This was connected down with cautery to the fascia. The fascia was then opened circumferentially. Rapidly, the muscles over the femur were cauterized, clamped as necessary. The bone was then taken with the harmonic saw protecting the vessels behind. The leg was then amputated with scissor, cautery, major vessels were tied. The popliteal artery and vein were identified, individually clamped and tied x2 with Vicryl. The nerve was identified, high dissection was done. It was clamped, tied and seemed to retract. Hemostasis was excellent, clamping multiple large vessels. Tourniquet was let down. There was very little difference. Incision was closed over an On-Q and a Kodi. There was bone wax used. The fascia was closed with 0 Vicryl, skin was closed with geronimo. A light pressure dressing was applied with an Primo bandage as necessary. Alejnadro Joy MD
== END 2017-06-14 23:14 | DRG 239 ==
LOC: ED 21:55 → ERH 22:37 → 5RSO 06-07 10:42
PROVIDERS: ADMIT Internal Medicine; ATTEND Internal Medicine
PROC: 5A1D70Z Performance of Urinary Filtration, Intermittent, Less than 6 Hours Per Day (ICD-10-PCS; 2017-06-07)
PROC: 30233N1 Transfusion of Nonautologous Red Blood Cells into Peripheral Vein, Percutaneous Approach (ICD-10-PCS; 2017-06-07)
PROC: 5A1D70Z Performance of Urinary Filtration, Intermittent, Less than 6 Hours Per Day (ICD-10-PCS; 2017-06-09)
PROC: 0Y6C0Z1 Detachment at Right Upper Leg, High, Open Approach (ICD-10-PCS; principal; 2017-06-11 09:30)
PROC: 5A1D70Z Performance of Urinary Filtration, Intermittent, Less than 6 Hours Per Day (ICD-10-PCS; 2017-06-12)
PROC: 5A1D70Z Performance of Urinary Filtration, Intermittent, Less than 6 Hours Per Day (ICD-10-PCS; 2017-06-14)
DX: E11.52 Type 2 diabetes mellitus with diabetic peripheral angiopathy with gangrene (principal); N18.6 End stage renal disease; L89.154 Pressure ulcer of sacral region, stage 4; E11.40 Type 2 diabetes mellitus with diabetic neuropathy, unspecified; E11.22 Type 2 diabetes mellitus with diabetic chronic kidney disease; E83.52 Hypercalcemia; I07.1 Rheumatic tricuspid insufficiency; I12.0 Hypertensive chronic kidney disease with stage 5 chronic kidney disease or end stage renal disease; L97.429 Non-pressure chronic ulcer of left heel and midfoot with unspecified severity; L97.419 Non-pressure chronic ulcer of right heel and midfoot with unspecified severity; B18.1 Chronic viral hepatitis B without delta-agent; L12.0 Bullous pemphigoid; N25.81 Secondary hyperparathyroidism of renal origin; E11.621 Type 2 diabetes mellitus with foot ulcer; R13.10 Dysphagia, unspecified; D63.1 Anemia in chronic kidney disease; E78.5 Hyperlipidemia, unspecified; F03.90 Unspecified dementia, unspecified severity, without behavioral disturbance, psychotic disturbance, mood disturbance, and anxiety; I25.10 Atherosclerotic heart disease of native coronary artery without angina pectoris; B95.62 Methicillin resistant Staphylococcus aureus infection as the cause of diseases classified elsewhere; B96.4 Proteus (mirabilis) (morganii) as the cause of diseases classified elsewhere; B95.1 Streptococcus, group B, as the cause of diseases classified elsewhere; B96.20 Unspecified Escherichia coli [E. coli] as the cause of diseases classified elsewhere; D50.9 Iron deficiency anemia, unspecified; E87.6 Hypokalemia; Z99.2 Dependence on renal dialysis; I69.991 Dysphagia following unspecified cerebrovascular disease; Z85.528 Personal history of other malignant neoplasm of kidney; Z90.5 Acquired absence of kidney; Z89.612 Acquired absence of left leg above knee; Z74.01 Bed confinement status

== ENCOUNTER 2017-08-10 00:21 | Inpatient (IN) | payer MEDICARE, BC ==
--- NOTE | 2017-08-10 00:41 | ED PDOC ---
Arrival/HPI <Tor Ervin - Last Filed: 08/10/17 02:24> - General Historian: Snf - History of Present Illness Time/Duration: Other (see hpi) Context: Other (intermediate) <Lara Corona - Last Filed: 08/11/17 01:06> - General Time Seen by Provider: 08/10/17 00:31 - History of Present Illness Narrative History of Present Illness (Text): 08/10/17 00:37 A 76 year old male, whose past medical history includes dementia, ESRD, hypertension, diabetes and peripheral vascular disease, was brought in by EMS to the emergency department for evaluation of fever, and cough. Patient does not speak. Information taken from intermediate chart, which noted cough, and uncontrolled fever. (Lara Corona) Past Medical History - Provider Review Nursing Documentation Reviewed: Yes - Past History Past History: No Previous - Infectious Disease Hx of Infectious Diseases: None - Tetanus Immunization Tetanus Immunization: Unknown - Cardiac Hx Hypertension: Yes - Pulmonary Hx Chronic Obstructive Pulmonary Disease (COPD): Yes - Neurological HX Cerebrovascular Accident: Yes Hx Dementia: Yes - HEENT Hx HEENT Disorder: No (WEARS RX GLASSES) - Renal Hx Dialysis: Yes Date of Last Dialysis Treatment: 06/05/17 Hx Renal Failure: Yes (wiht hemodialysis) - Endocrine/Metabolic Hx Diabetes Mellitus Type 2: Yes - Hematological/Oncological Hx Blood Transfusions: Yes Hx Blood Transfusion Reaction: No - Integumentary Hx Dermatological Disorder: Yes (Bullous pemphigoid) - Musculoskeletal/Rheumatological Hx Arthritis: Yes - Gastrointestinal Hx Gastrointestinal Disorders: Yes Hx Crohn's Disease: No Hx Diverticulitis: No Hx Gall Bladder Disease: No Hx Pancreatitis: No Other/Comment: + gtube - Genitourinary/Gynecological Hx Sexually Transmitted Diseases: No - Psychiatric Hx Anxiety: No Hx Bipolar Disorder: No Hx Depression: No Hx Post Traumatic Stress Disorder: No Hx Schizophrenia: No Hx Substance Use: No - Surgical History Hx Mastectomy: No - Anesthesia Hx Anesthesia Reactions: No Hx Malignant Hyperthermia: No - Suicidal Assessment Feels Threatened In Home Enviroment: No <Lara Corona - Last Filed: 08/11/17 01:06> Family/Social History - Physician Review Nursing Documentation Reviewed: Yes Family/Social History: Other (noncontributory) Smoking Status: Never Smoked Hx Alcohol Use: No Hx Substance Use: No Hx Substance Use Treatment: No <CoronaLara lomeli Bethanie - Last Filed: 08/11/17 01:06> Allergies/Home Meds <Tor Ervin - Last Filed: 08/10/17 02:24> <Lara Corona P - Last Filed: 08/11/17 01:06> Allergies/Adverse Reactions: Allergies No Known Allergies Allergy (Verified 08/10/17 00:38) Home Medications: Home Meds Medication Instructions Recorded Confirmed Amino AC/Protein Hydr/Whey Pro 30 ml GT DAILY 06/06/17 06/06/17 [Prosource Plus Liquid Packet] Carvedilol [Coreg] 1 tab GT BID 06/06/17 08/10/17 Cinacalcet [Sensipar] 1 cap GT DAILY 06/06/17 08/10/17 Donepezil [Aricept] 1 tab GT HS 06/06/17 08/10/17 Heparin 1 vial SC Q12H 06/06/17 06/06/17 Hydralazine HCl 1 tab GT TID 06/06/17 08/10/17 Pregabalin [Lyrica] 1 cap GT TID 06/06/17 06/06/17 Silver Sulfadiazine [Silvadene] 1 appl TOP MWF 06/06/17 06/06/17 Valsartan [Diovan] 1 tab GT DAILY 06/06/17 08/10/17 Vitamin B Complex [Super B-50 1 cap GT DAILY 06/06/17 08/10/17 Complex] amLODIPine [Norvasc] 1 tab GT DAILY 06/06/17 08/10/17 Pregabalin [Lyrica] 1 tab GT DAILY 08/10/17 08/10/17 Review of Systems - Review of Systems Systems not reviewed;Unavailable: Other (taken from intermediate chart) Constitutional: Fevers Respiratory: Cough <Lara Corona P - Last Filed: 08/11/17 01:06> Physical Exam Temperature: Afebrile Blood Pressure: Normal Pulse: Regular Respiratory Rate: Normal Appearance: Positive for: Non-Toxic, Comfortable, Ill-Appearing Pain Distress: None - Systems Exam Head: Present: Atraumatic, Normocephalic Pupils: Present: PERRL Extroacular Muscles: Present: EOMI Conjunctiva: Present: Normal Mouth: Present: Moist Mucous Membranes Neck: Present: Normal Range of Motion. No: Meningeal Signs Respiratory/Chest: Present: Clear to Auscultation, Good Air Exchange. No: Respiratory Distress, Accessory Muscle Use, Wheezes Cardiovascular: Present: Regular Rate and Rhythm, Normal S1, S2. No: Murmurs Abdomen: Present: Feeding Tubes. No: Tenderness, Distention, Peritoneal Signs Genitourinary Male: Present: Other ((+) mesa catheter in place) Upper Extremity: Present: Normal Inspection, NORMAL PULSES. No: Cyanosis, Edema Lower Extremity: Present: NORMAL PULSES, Other (s/p b/l amputation above knee). No: Edema Neurological: Present: CN II-XII Intact Skin: Present: Warm, Dry, Normal Color. No: Rashes Psychiatric: Present: Lethargic <Lara Corona - Last Filed: 08/11/17 01:06> Vital Signs Temp Pulse Resp BP Pulse Ox 08/10/17 04:13 62 18 128/55 L 100 08/10/17 04:00 98.1 F 62 18 128/59 L 100 08/10/17 02:38 60 18 124/50 L 100 08/10/17 00:54 98.9 F 62 18 128/49 L 100 Medical Decision Making <Tor Ervin - Last Filed: 08/10/17 02:24> Re-evaluation Time: 02:09 Reassessment Condition: Re-examined, Improving,but remains with symptoms - Lab Interpretations I have reviewed the lab results: Yes Interpretation: Abnormal lab values - EKG Interpretation Interpreted by ED Physician: Yes (NSR @ [address] changes) Type: 12 lead EKG Comparison: No previous EKG avail. <Lara Corona - Last Filed: 08/11/17 01:06> ED Course and Treatment: 08/10/17 02:[address] Aguirre regarding intermediate notes, VS, CXR results with infiltrates and pleural effusion, elevated LFTs. He agreed with plan for admission . He recommended Dr. Garza and Dr. Lara consult. (Lara Corona) - Lab Interpretations Microbiology Results: Microbiology Results 08/10/17 01:23 Blood Blood Culture - Preliminary Gram Negative Mitch 08/10/17 01:23 Blood Gram Stain - Final 08/10/17 01:03 Blood Blood Culture - Preliminary Gram Negative Mitch 08/10/17 01:03 Blood Gram Stain - Final Lab Results: 08/10/17 01:03 08/10/17 01:03 Lab Results 08/10/17 01:03: Procalcitonin 1.71 H 08/10/17 01:03: Sodium 135, Chloride 98, Potassium 3.3 L, Carbon Dioxide 30, Anion Gap 11, BUN 42 H, Creatinine 1.7 H, Est GFR ( Amer) 48, Est GFR ( Non-Af Amer) 39, Random Glucose 141 H, Calcium 7.4 L, Phosphorus 2.7, Magnesium 2.4 H, Total Bilirubin 0.8, AST 112 H D, ALT 101 H, Alkaline Phosphatase 215 H D , Lactate Dehydrogenase 491, Total Creatine Kinase 24 L, Troponin I 0.02 D, Total Protein 7.6, Albumin 2.5 L, Globulin 5.1, Albumin/Globulin Ratio 0.5 L 08/10/17 01:03: pO2 102 H, VBG pH 7.51 H, VBG pCO2 41.0, VBG HCO3 32.7 H, VBG Total CO2 34.0 H, VBG O2 Sat (Calc) 99.9 H, VBG Base Excess 8.8 H, VBG Potassium 3.4 L, Sodium 135.0, Chloride 100.0, Glucose 151 H, Lactate 1.5, FiO2 21.0, Venous Blood Potassium 3.4 L 08/10/17 01:03: PT 18.3 H, INR 1.59 H, APTT 35.1 08/10/17 01:03: WBC 13.3 H D, RBC 3.75, Hgb 10.7 L D, Hct 31.6 L, MCV 84.3, MCH 28.5, MCHC 33.9, RDW 22.9 H, Plt Count 75 L, Gran % 86.8 H, Lymph % (Auto) 8.0 L , [place] % (Auto) 5.1, Eos % (Auto) 0.0 L, Baso % (Auto) 0.1, Gran # 11.53 H, Lymph # (Auto) 1.1 L, [place] # (Auto) 0.7 H, Eos # (Auto) 0.0, Baso # (Auto) 0.01 , ESR 93 H 08/10/17 00:47: POC Glucose (mg/dL) 153 H - RAD Interpretation Narrative RAD Interpretations (Text): 08/10/17 02:11 CXR: (+) RML infiltrates with trace pleural effusion b/l (Corona,Nahim P) Radiology Orders: 08/10/17 00:44 CHEST PORTABLE [RAD] Stat - Medication Orders Current Medication Orders: Acetylcysteine (Acetylcysteine 20%) 3 ml INH BID COUNT INCLUDES THE [facility] Last Admin: 08/10/17 19:24 Dose: 3 ml Amlodipine Besylate (Norvasc) 10 mg GT DAILY COUNT INCLUDES THE [facility] Last Admin: 08/10/17 10:51 Dose: 10 mg MAR Blood Pressure Document 08/10/17 10:51 LUIGI (Rec: 08/10/17 10:51 LUIGI [place] [id number]) Blood Pressure Blood Pressure (100/60-150/90) 114/50 Arformoterol Tartrate (Brovana) 15 mcg IH [id number] COUNT INCLUDES THE [facility] Last Admin: 08/10/17 19:23 Dose: 15 mcg Budesonide (Pulmicort Respules) 0.5 mg IH [id number] COUNT INCLUDES THE [facility] Last Admin: 08/10/17 19:24 Dose: 0.5 mg Carvedilol (Coreg) 6.25 mg GT BID COUNT INCLUDES THE [facility] Last Admin: 08/10/17 17:20 Dose: 6.25 mg MAR Pulse and Blood Pressure Document 08/10/17 17:20 LUIGI (Rec: 08/10/17 17:20 LUIGI [place] [id number]) Pulse Pulse Rate (60-90) 55 Blood Pressure Blood Pressure (100/60-150/90) 115/72 Cinacalcet (Sensipar) 30 mg PO DAILY COUNT INCLUDES THE [facility] Last Admin: 08/10/17 10:51 Dose: 30 mg Donepezil HCl (Aricept) 10 mg GT HS [place] Famotidine (Pepcid) 40 mg PO HS COUNT INCLUDES THE [facility] Last Admin: 08/10/17 21:55 Dose: 40 mg Heparin Sodium (Porcine) (Heparin) 5,000 units SC Q12H COUNT INCLUDES THE [facility] PRN Reason: Protocol Last Admin: 08/10/17 21:53 Dose: 5,000 units Subcutaneous Administrations Document 08/10/17 21:53 SD (Rec: 08/10/17 21:53 SD [place] [id number]) Charges for Administration # of Subcutaneous Administrations 1 Doxycycline Hyclate 100 mg/ (Sodium Chloride) 100 mls @ 100 mls/hr IVPB Q12 [place] PRN Reason: Protocol Last Admin: 08/10/17 21:55 Dose: 100 mls/hr eMAR Start Stop Document 08/10/17 21:55 SD (Rec: 08/10/17 21:55 SD [id number]) Intravenous Solution Start Date 08/10/17 Start Time 21:55 Meropenem (Merrem Iv 1 Gm Premix) 50 mls @ 100 mls/hr IVPB Q12 [place] PRN Reason: Protocol Stop: 08/15/17 22:01 Last Admin: 08/10/17 21:54 Dose: 100 mls/hr eMAR Start Stop Document 08/10/17 21:54 SD (Rec: 08/10/17 21:54 SD [id number]) Intravenous Solution Start Date 08/10/17 Start Time 21:54 Multivitamins (Thera Tab) 1 tab PO DAILY [place] Last Admin: 08/10/17 10:51 Dose: 1 tab Pregabalin (Lyrica) 75 mg GT DAILY COUNT INCLUDES THE [facility] Last Admin: 08/10/17 10:51 Dose: 75 mg Silver Sulfadiazine (Silvadene 1% 25 Gm) 0 gm TP MWF [place] Stop: 08/16/17 08:00 Last Admin: 08/10/17 10:52 Dose: 25 gm Valsartan (Diovan) 320 mg GT DAILY [place] Last Admin: 08/10/17 10:51 Dose: 320 mg Discontinued Medications Acetaminophen (Tylenol 650 Mg Supp) 650 mg RC STAT STA Stop: 08/10/17 00:48 Last Admin: 08/10/17 01:31 Dose: Albuterol/Ipratropium (Duoneb 3 Mg/0.5 Mg (3 Ml) Ud) 3 ml IH STAT STA Stop: 08/10/17 01:44 Last Admin: 08/10/17 03:18 Dose: 3 ml Sodium Chloride (Sodium Chloride 0.9%) 500 mls @ 999 mls/hr IV .Q31M STA Stop: 08/10/17 01:17 Last Admin: 08/10/17 01:31 Dose: 999 mls/hr eMAR Start Stop Document 08/10/17 01:31 IT (Rec: 08/10/17 01:31 IT [id number]) Intravenous Solution Start Date 08/10/17 Start Time 01:31 End Date 08/10/17 End time 02:31 Total Infusion Time 60 Ceftriaxone Sodium (Rocephin 1 Gram Ivpb) 1 gm in 100 mls @ 200 mls/hr IVPB STAT STA PRN Reason: Protocol Stop: 08/10/17 02:11 Last Admin: 08/10/17 02:34 Dose: 200 mls/hr eMAR Start Stop Document 08/10/17 02:34 IT (Rec: 08/10/17 02:34 IT [id number]) Intravenous Solution Start Date 08/10/17 Start Time 02:34 End Date 08/10/17 Azithromycin (Zithromax 500mg In Ns) 500 mg in 250 mls @ 167 mls/hr IVPB STAT STA PRN Reason: Protocol Stop: 08/10/17 03:11 Last Admin: 08/10/17 03:18 Dose: 167 mls/hr eMAR Start Stop Document 08/10/17 03:18 IT (Rec: 08/10/17 03:18 IT [id number]) Intravenous Solution Start Date 08/10/17 Start Time 03:18 Cefepime HCl (Maxipime 2gm) 2 gm in 100 mls @ 100 mls/hr IVPB Q12 [place] PRN Reason: Protocol Stop: 08/15/17 10:01 Last Admin: 08/10/17 10:52 Dose: 100 mls/hr eMAR Start Stop Document 08/10/17 10:52 LUIGI (Rec: 08/10/17 10:52 LUIGI [id number]) Intravenous Solution Start Date 08/10/17 Start Time 10:52 End Date 08/10/17 End time 11:52 Total Infusion Time 60 Vancomycin HCl 1.5 gm/ Sodium (Chloride) 500 mls @ 167 mls/hr IVPB ONCE ONE PRN Reason: Protocol Stop: 08/10/17 08:58 Last Admin: 08/10/17 06:32 Dose: 167 mls/hr eMAR Start Stop Document 08/10/17 06:32 ZARAL (Rec: 08/10/17 06:33 ZARAL [id number]) Intravenous Solution Start Date 08/10/17 Start Time 06:30 End Date 08/10/17 End time 09:30 Total Infusion Time 180 Potassium Chloride (Potassium Chloride 20 Meq/100 Ml) 20 meq in 100 mls @ 50 mls/hr IVPB ONCE ONE Stop: 08/10/17 18:18 - PA / MAXILLOFACIAL PATHOLOGY / Resident Statement MONY has reviewed & agrees with the documentation as recorded. MONY has examined the patient and agrees with the treatment plan. <Tor Ervin - Last Filed: 08/10/17 02:24> Disposition/Present on Arrival <Tor Ervin - Last Filed: 08/10/17 02:24> - Present on Arrival Any Indicators Present on Arrival: No History of DVT/PE: No History of Uncontrolled Diabetes: Yes Urinary Catheter: No History Surgical Site Infection Following: None - Disposition Have Diagnosis and Disposition been Completed?: Yes Disposition Time: 02:12 Patient Plan: Admission <Lara Corona - Last Filed: 08/11/17 01:06> - Disposition Diagnosis: Pneumonia, Cystitis, Altered mental state, Pleural effusion, Fever Disposition: HOSPITALIZED Patient Problems: Current Active Problems Problem Status Onset Pneumonia Acute Condition: STABLE
[2017-08-10] MEDS ORDERED: Sodium Chloride 0.9% 500 ML IV STA (00:47)
[2017-08-10 01:39] LABS: ALB/GLOB RATIO 0.5 (1.1-1.8); ALBUMIN 2.5 g/dL (3.0-4.8); CALCIUM 7.4 mg/dL (8.4-10.5)
[2017-08-10 01:40] LABS: INR 1.59 (0.93-1.08); PARTIAL THROMBOPLASTIN TIME 35.1 Seconds (25.1-36.5); PROTHROMBIN TIME 18.3 SECONDS (9.4-12.5)
[2017-08-10] MEDS ORDERED: cefTRIAXone 1 gm 1 GM/100 ML BAG IVPB STA (01:42)
[2017-08-10] MEDS ORDERED: Azithromycin 500MG/NS 250ml 500 MG/250 ML BAG IVPB STA (01:42)
[2017-08-10] MEDS ORDERED: Albuterol-Ipratrop 3 mg / 0.5 (3 ml) UD IH STA (01:43)
[2017-08-10 01:48] LABS: BASO # 0.01 K/mm3 (0.0-2.0); BASO % 0.1 % (0.0-3.0); GRAN # 11.53 (1.4-6.5); GRAN % 86.8 % (50.0-68.0); HEMOGLOBIN 10.7 g/dL (14.0-18.0); LYMPH # 1.1 (1.2-3.4); MEAN CELL VOLUME 84.3 fl (80.0-105.0); MEAN CORPUSCULAR HEMOGLOBIN 28.5 pg (25.0-35.0); MEAN CORPUSCULAR HGB CONC 33.9 g/dl (31.0-37.0); MONO # 0.7 (0.1-0.6); MONO % 5.1 % (1.0-6.0); PLATELET COUNT 75 10^3/uL (120.0-450.0); RBC 3.75 10^6/uL (3.5-6.1); RED CELL DISTRIBUTION WIDTH 22.9 % (11.5-14.5); WHITE BLOOD COUNT 13.3 10^3/ul (4.5-11.0)
[2017-08-10 01:51] LABS: TROPONIN I 0.02 ng/mL
[2017-08-10 02:08] LABS: VENOUS BLOOD GAS BASE EXCESS 8.8 mmol/L (0.0-2.0); VENOUS BLOOD GAS PO2 102 mm/Hg (30-55); VENOUS BLOOD PH 7.51 (7.32-7.43)
[2017-08-10 05:04] VITALS: BMI 19.4
--- NOTE | 2017-08-10 05:42 | CP.PCM.PN ---
Subjective - Date & Time of Evaluation Date of Evaluation: 08/10/17 Time of Evaluation: 05:40 - Subjective Subjective: Patient was seen at bedside because as per nurse patient was lethargic. BP 128/55, 62/min, 18/min, Had fever 101.2*F in ER ,rectal on floor 98.5*F, pulse ox 100 % on 2L/min, FSBS 121 mg %. Patient was arousable with deep painful stimuli. This 76 year old male was admitted with fever , cough, RML PNA ,leukocytosis. Has PMH of DM, HTN, dementia, ESRD, PVD, anemia, arthritis. Objective - Vital Signs/Intake and Output Vital Signs (last 24 hours): Temp Pulse Resp BP Pulse Ox 98.1 F 62 19 128/55 L 100 08/10/17 04:00 08/10/17 04:13 08/10/17 04:45 08/10/17 04:13 08/10/17 04:13 - Labs Labs: PT 18.3 SECONDS (9.4-12.5) H 08/10/17 01:03 INR 1.59 (0.93-1.08) H 08/10/17 01:03 APTT 35.1 Seconds (25.1-36.5) 08/10/17 01:03 Most Recent Lab Values WBC 13.3 10^3/ul (4.5-11.0) H D 08/10/17 01:03 RBC 3.75 10^6/uL (3.5-6.1) 08/10/17 01:03 Hgb 10.7 g/dL (14.0-18.0) L D 08/10/17 01:03 Hct 31.6 % (42.0-52.0) L 08/10/17 01:03 MCV 84.3 fl (80.0-105.0) 08/10/17 01:03 MCH 28.5 pg (25.0-35.0) 08/10/17 01:03 MCHC 33.9 g/dl (31.0-37.0) 08/10/17 01:03 RDW 22.9 % (11.5-14.5) H 08/10/17 01:03 Plt Count 75 10^3/uL (120.0-450.0) L 08/10/17 01:03 Gran % 86.8 % (50.0-68.0) H 08/10/17 01:03 Lymph % (Auto) 8.0 % (22.0-35.0) L 08/10/17 01:03 [place] % (Auto) 5.1 % (1.0-6.0) 08/10/17 01:03 Eos % (Auto) 0.0 % (1.5-5.0) L 08/10/17 01:03 Baso % (Auto) 0.1 % (0.0-3.0) 08/10/17 01:03 Gran # 11.53 (1.4-6.5) H 08/10/17 01:03 Lymph # (Auto) 1.1 (1.2-3.4) L 08/10/17 01:03 [place] # (Auto) 0.7 (0.1-0.6) H 08/10/17 01:03 Eos # (Auto) 0.0 (0.0-0.7) 08/10/17 01:03 Baso # (Auto) 0.01 K/mm3 (0.0-2.0) 08/10/17 01:03 ESR 93 mm/hr (0.00-15.0) H 08/10/17 01:03 PT 18.3 SECONDS (9.4-12.5) H 08/10/17 01:03 INR 1.59 (0.93-1.08) H 08/10/17 01:03 APTT 35.1 Seconds (25.1-36.5) 08/10/17 01:03 pO2 102 mm/Hg (30-55) H 08/10/17 01:03 VBG pH 7.51 (7.32-7.43) H 08/10/17 01:03 VBG pCO2 41.0 (40-60) 08/10/17 01:03 VBG HCO3 32.7 mmol/l (21-28) H 08/10/17 01:03 VBG Total CO2 34.0 mmol.L (22-28) H 08/10/17 01:03 VBG O2 Sat (Calc) 99.9 % (40-65) H 08/10/17 01:03 VBG Base Excess 8.8 mmol/L (0.0-2.0) H 08/10/17 01:03 VBG Potassium 3.4 mmol/L (3.6-5.2) L 08/10/17 01:03 Sodium 135.0 mmol/L (132-148) 08/10/17 01:03 Chloride 100.0 mmol/L (98-107) 08/10/17 01:03 Glucose 151 mg/dl (75-110) H 08/10/17 01:03 Lactate 1.5 mmol/L (0.7-2.1) 08/10/17 01:03 FiO2 21.0 % 08/10/17 01:03 Sodium 135 mmol/L (132-148) 08/10/17 01:03 Potassium 3.3 mmol/L (3.6-5.0) L 08/10/17 01:03 Chloride 98 mmol/L (98-107) 08/10/17 01:03 Carbon Dioxide 30 mmol/L (21-33) 08/10/17 01:03 Anion Gap 11 (10-20) 08/10/17 01:03 BUN 42 mg/dL (7-21) H 08/10/17 01:03 Creatinine 1.7 mg/dl (0.8-1.5) H 08/10/17 01:03 Est GFR ( Amer) 48 08/10/17 01:03 Est GFR (Non-Af Amer) 39 08/10/17 01:03 POC Glucose (mg/dL) 121 mg/dL (65-110) H 08/10/17 05:26 Random Glucose 141 mg/dL (70-110) H 08/10/17 01:03 Calcium 7.4 mg/dL (8.4-10.5) L 08/10/17 01:03 Phosphorus 2.7 mg/dL (2.5-4.5) 08/10/17 01:03 Magnesium 2.4 mg/dL (1.7-2.2) H 08/10/17 01:03 Total Bilirubin 0.8 mg/dL (0.2-1.3) 08/10/17 01:03 AST 112 U/L (17-59) H D 08/10/17 01:03 ALT 101 U/L (7-56) H 08/10/17 01:03 Alkaline Phosphatase 215 U/L (38-126) H D 08/10/17 01:03 Lactate Dehydrogenase 491 U/L (333-699) 08/10/17 01:03 Total Creatine Kinase 24 U/L (35-230) L 08/10/17 01:03 Troponin I 0.02 ng/mL D 08/10/17 01:03 Total Protein 7.6 g/dL (5.8-8.3) 08/10/17 01:03 Albumin 2.5 g/dL (3.0-4.8) L 08/10/17 01:03 Globulin 5.1 gm/dL 08/10/17 01:03 Albumin/Globulin Ratio 0.5 (1.1-1.8) L 08/10/17 01:03 Venous Blood Potassium 3.4 mmol/L (3.6-5.2) L 08/10/17 01:03 Influenza Typ A,B (EIA) Negative for flu a/b (NEGATIVE) 08/10/17 02:45 - Constitutional Appears: Well, No Acute Distress - Head Exam Head Exam: ATRAUMATIC, NORMAL INSPECTION, NORMOCEPHALIC - Eye Exam Eye Exam: Normal appearance Additional comments: Pupils 3 mm equal bilaterally. - ENT Exam ENT Exam: Normal External Ear Exam - Neck Exam Neck Exam: Normal Inspection - Respiratory Exam Respiratory Exam: Rales (In RML area.), NORMAL BREATHING PATTERN - Cardiovascular Exam Cardiovascular Exam: absent: JVD - GI/Abdominal Exam GI & Abdominal Exam: absent: Distended - Rectal Exam Rectal Exam: Deferred - Exam Additional comments: Deferred. - Extremities Exam Extremities Exam: Normal Inspection - Back Exam Back Exam: NORMAL INSPECTION - Neurological Exam Neurological Exam: Alert, Awake Additional comments: Arousable on deep painful stimuli. Withdraws extremities. - Psychiatric Exam Additional comments: Sleepy. - Skin Skin Exam: Normal Color Assessment and Plan - Assessment and Plan (Free Text) Assessment: Arousable with painful stimuli. RML PNA. ESRD. Anemia. Leukocytosis. DM. Dementia. HTN. ESRD. Plan: Observation, reevaluate prn. Continue present management.
[2017-08-10] MEDS ORDERED: Vancomycin 1.5 GM in Sodium Chloride 0.9% 500 ML IVPB ONE (05:59)
--- NOTE | 2017-08-10 09:18 | RAD ---
HISTORY: Sepsis Patient COMPARISON: 06/07/2017 FINDINGS: LUNGS: No active pulmonary disease. PLEURA: Small pleural effusions CARDIOVASCULAR: Mild vascular congestion OSSEOUS STRUCTURES: No significant abnormalities. VISUALIZED UPPER ABDOMEN: Normal. OTHER FINDINGS: None. IMPRESSION: Mild vascular congestion. Small pleural effusions
--- NOTE | 2017-08-10 09:44 | CARD ---
APPROVED REPORT EKG Measurement Heart [id number] <Conclusion> Normal sinus rhythm Septal infarct, age undetermined Leftward axis No change except lower voltage V 4 - 6
[2017-08-10] MEDS ORDERED: Cefepime IV 2 gm in NS 2 GM/100 ML BAG IVPB SCH (10:00)
[2017-08-10] MEDS: Multivitamin Therapeutic Tab PO SCH (10:51)
[2017-08-10] MEDS: Silver Sulfadiazine 1% Cream (25 gm) TP SCH (10:52)
[2017-08-10 13:01] LABS: URINE BILIRUBIN NEGATIVE (NEGATIVE); URINE BLOOD MODERATE (NEGATIVE); URINE GLUCOSE (UA) NEGATIVE (NEGATIVE); URINE LEUKOCYTE ESTERASE LARGE Leu/uL (NEGATIVE); URINE PROTEIN 100 mg/dL (<30 mg/dL)
[2017-08-10 13:03] LABS: URINE APPEARANCE SL CLOUDY (CLEAR); URINE COLOR DARK YELLOW (YELLOW)
[2017-08-10 13:18] LABS: URINE BACTERIA TRACE (NEG)
--- NOTE | 2017-08-10 17:37 | CP.PCM.CON ---
History of Present Illness - History of Present Illness History of Present Illness: 76 year old male with PMH of HTN, DM, dyslipidemia, ESRD on HD, renal cancer S/ P partial nephrectomy, history of bilateral gangrenous heel ulcers S/P debridement, grew MRSA, Proteus and E. faecalis S/P right AKA, S/P left AKA was [facility] in [facility] because of cough, shortness of breath and fever. The patient is not cooperative and full review of systems is unobtainable. There is no note of vomiting, no diarrhea. In the ED , he is noted to have leukocytosis and Infectious Diseases consult is requested to further evaluate and manage. Review of Systems - Review of Systems Systems not reviewed;Unavailable: Uncooperative Past Patient History - Infectious Disease Hx of Infectious Diseases: None - Tetanus Immunizations Tetanus Immunization: Unknown - Past Medical History & Family History Past Medical History?: Yes - Past Social History Smoking Status: Former Smoker - CARDIAC Hx Cardiac Disorders: Yes Hx Circulatory Problems: Yes Hx Hypertension: Yes Hx Peripheral Vascular Disease: Yes - PULMONARY Hx Respiratory Disorders: Yes Hx Chronic Obstructive Pulmonary Disease (COPD): Yes - NEUROLOGICAL Hx Neurological Disorder: Yes HX Cerebrovascular Accident: Yes Hx Dementia: Yes Hx Seizures: Yes - HEENT Hx HEENT Problems: No (WEARS RX GLASSES) - RENAL Hx Chronic Kidney Disease: Yes Hx Dialysis: Yes (sunday// sunday) Hx Renal Failure: Yes (wiht hemodialysis) - ENDOCRINE/METABOLIC Hx Endocrine Disorders: Yes Hx Diabetes Mellitus Type 2: Yes - HEMATOLOGICAL/ONCOLOGICAL Hx Blood Disorders: Yes Hx Anemia: Yes Hx Hepatitis B: Yes - INTEGUMENTARY Hx Dermatological Problems: Yes (Bullous pemphigoid) Other/Comment: unstageable sacral ulcer - MUSCULOSKELETAL/RHEUMATOLOGICAL Hx Falls: Yes - GASTROINTESTINAL Hx Gastrointestinal Disorders: Yes (peg tube, inguinal hernia repair) Hx Crohn's Disease: No Hx Diverticulitis: No Hx Gall Bladder Disease: No Hx Pancreatitis: No Other/Comment: + gtube - GENITOURINARY/GYNECOLOGICAL Hx Genitourinary Disorders: Yes (chronic mesa) - PSYCHIATRIC Hx Psychophysiologic Disorder: No Hx Anxiety: No Hx Bipolar Disorder: No Hx Depression: No Hx Post Traumatic Stress Disorder: No Hx Schizophrenia: No - SURGICAL HISTORY Hx Surgeries: Yes (left av fistula) Hx Amputation: Yes (b/l AKA) Hx Mastectomy: No - ANESTHESIA Hx Anesthesia Reactions: No Hx Malignant Hyperthermia: No Meds Allergies/Adverse Reactions: Allergies Allergy/AdvReac Type Severity Reaction Status Date / Time No Known Allergies Allergy Verified 08/10/17 00:38 Physical Exam - Constitutional Appears: Non-toxic, Chronically Ill - Head Exam Head Exam: NORMAL INSPECTION - Neck Exam Neck exam: Negative for: Meningismus - Respiratory Exam Respiratory Exam: Decreased Breath Sounds - Cardiovascular Exam Cardiovascular Exam: +S1, +S2 - GI/Abdominal Exam GI & Abdominal Exam: Soft. absent: Tenderness - Extremities Exam Additional comments: bilateral AKA stumps clean and intact Results - Vital Signs Recent Vital Signs: Last Vital Signs Temp 98.1 F 08/10/17 04:00 Pulse 62 08/10/17 04:13 Resp 19 08/10/17 04:45 BP 128/55 L 08/10/17 04:13 Pulse Ox 100 08/10/17 04:13 - Labs Result Diagrams: 08/10/17 01:03 08/10/17 01:03 Labs: Laboratory Results - last 24 hr 08/10/17 08/10/17 02:45 05:26 POC Glucose (mg/dL) 121 H Influenza Typ A,B (EIA) Negative for flu a/b Assessment & Plan - Assessment and Plan (Free Text) Plan: Assessment systemic inflammatory response syndrome, R/O sepsis from HCAP 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 faecalis S/P left AKA Possible hemochromatosis DM HTN dyslipidemia ESRD on HD renal cancer S/P partial nephrectomy hepatitis B and C infection history of bullous pemphigoid CAD Plan gave a dose of IV Vancomycin and started CEfepime and Doxycycline pending blood , sputum cx, PCT; reviewed CXR will monitor clinically
[2017-08-10] MEDS: Arformoterol 15 mcg/2 ml Inh Sol IH SCH (19:23)
[2017-08-10] MEDS: Acetylcysteine 20% Inhal Soln (4ml) INH SCH (19:24)
[2017-08-10] MEDS: Budesonide 0.5 mg/2 ml Inhal Susp UD IH SCH (19:24)
[2017-08-10] MEDS: Meropenem IV 1 gm in NS 50 ML IVPB SCH (21:54)
--- NOTE | 2017-08-11 01:34 | CON ---
DATE: 08/10/2017 PULMONARY CONSULTATION REASON FOR CONSULTATION: Cough, shortness of breath, and fever. HISTORY OF PRESENT ILLNESS: This is a 76 years old gentleman with past medical history significant for dementia, renal failure, dialysis dependent, hypertension, diabetes, peripheral vascular disease, brought in because of fever, cough, shortness of breath. Received inhaled bronchodilator, started on antibiotics, and admitted for further workup. Presently lying on the bed, sleepy, arousable, does not follow much commands. No hemoptysis, no emesis, no hematuria, no diarrhea reported. PAST MEDICAL HISTORY: Dementia, renal failure, dialysis dependent diabetes, hypertension, peripheral vascular disease, history of bilateral AKAs, history of CVA, anemia, history of bullous pemphigoid in the past, has a degenerative joint disease, has a G-tube. FAMILY HISTORY Significant cardiopulmonary disease reported. SOCIAL HISTORY: Never smoked. No history of alcohol abuse. ALLERGIES: NONE KNOWN. MEDICATIONS: He is on Aricept 10 mg via G-tube daily, Coreg 6.25 mg via G-tube twice a day, Diovan 320 mg daily doxycycline 100 mg twice a day, heparin 5000 units subcu every 12 hours, Lyrica 75 mg daily, cefepime 2 g IV every12 hours, Norvasc 10 mg daily, IV fluid with potassium 100 mL/hour, Sensipar 30 mg daily, multivitamins daily. REVIEW OF SYSTEMS: Mostly sleepy, arousable, not much verbal. Has some cough, shortness of breath. No chest pain. No hemoptysis, no hematuria, no diarrhea reported. Has a bilateral AKA. PHYSICAL EXAMINATION: GENERAL: Sleepy, arousable. VITAL SIGNS: Temperature is 98, heart rate 62, respiratory rate is 20, blood pressure 114/52, pulse ox 100% on 2 L. HEENT: Moist mucous membrane. Crowded airway. Mallampati score is 4. NECK: Short thick neck. LUNGS: Scattered rhonchi. HEART: S1 and S2. ABDOMEN: Soft, nontender, and nondistended. G-tube area looks okay. EXTREMITIES: Bilateral AKAs. NEUROLOGIC: Sleepy, arousable. LABORATORY DATA: Shows hemoglobin at 10.7, hematocrit 31.6, WBC 13.3, platelet count is 75. INR 1.59, PTT 35. ABG show pH 7.51, pCO2 is 41, this is on room air. Sodium 135, potassium 3.3, chloride 98, bicarbonate 30. BUN 42, creatinine 1.7. Glucose 141. Calcium is 7.4, phosphorus 2.7, magnesium 2.4. AST 112, ALT 101, alk phos is 258. LDH is 491. ProBNP is 12,900. Albumin is 2.5, procalcitonin 1.71. Urinalysis shows wbc's 10 to 5, rbc's 1 to 3. Influenza A and B negative. Chest x-ray shows mild vascular congestion, small pleural effusion. Pneumonia cannot be ruled out. IMPRESSION: Probably have aspiration pneumonia. Has a pulmonary infiltrate with congestion and pleural effusion; renal failure, dialysis dependent; hypertension; peripheral vascular disease, status post bilateral above knee amputations; oropharyngeal dysphagia, has a G-tube. There may be a component of sleep apnea syndrome. Agreed with the present management. Continue antibiotics. Keep head at 45 degrees. Bronchodilator, gastric prophylaxis, DVT prophylaxis. We will add inhaled bronchodilator for pulmonary toilet. May place him on BiPap 10/6 with 30% oxygen while sleeping. May use 2 L nasal cannula during the daytime. Thank you and we will follow with you. Ulysses Garza MD
--- NOTE | 2017-08-11 06:21 | CON ---
DATE: NEPHROLOGY CONSULTATION HISTORY OF PRESENT ILLNESS: A 76-year-old male with past medical history of hypertension; diabetes; hepatitis B (untreated); dementia; admission in 03/2017 for left foot osteomyelitis requiring left AKA; subsequent admission in 05/2016 for right foot gangrene, again requiring right foot AKA; ESRD, on hemodialysis (TTS at [facility] under [facility]), sent from senior care due to fever and possible altered mental status. Nephrology being consulted for ESRD care. Patient unable to give history due to dementia. Patient had a fever of 101.2 degrees Fahrenheit in the ER. Patient found to have large full-thickness sacral ulcer. Patient also noted to be coughing. Per daughter, who is at bedside, patient has waxing and waning mental status, sometimes able to recognize her; cough has been intermittent. PAST MEDICAL HISTORY: As above. Patient also with renal masses bilaterally, but no plan for aggressive treatment due to patient's advanced dementia; hepatitis B that has been untreated; admission in 02/2017 for altered mental status and left thigh herpes zoster lesion. FAMILY HISTORY Unable to be obtained. SOCIAL HISTORY Unable to be obtained. REVIEW OF SYSTEMS: Limited due to patient's dementia. GASTROINTESTINAL: Patient is getting feeds via PEG tube placed in 03/2017. PHYSICAL EXAMINATION: VITAL SIGNS: This morning, blood pressure 128/59, heart rate 62, respirations 18, temperature 98.1, O2 sat 100% on 2 liters via nasal cannula. GENERAL: No distress. Arousable to verbal stimuli, but unable to converse. HEENT: Moist mucous membranes. Nonicteric. RESPIRATORY: Mild left basal rales appreciated. No respiratory distress. No rhonchi. CARDIOVASCULAR: Heart sounds S1 and S2 normal. No murmurs, no gallops, no rubs. GASTROINTESTINAL: Abdomen soft, nontender, nondistended. GENITOURINARY: No bladder distention. Patel in place. EXTREMITIES: Mild edema of dependent areas. SKIN: Large full-thickness sacral ulcer with no sign of overt infection. NEUROLOGIC: Patient demented. PSYCHIATRIC: Not agitated. LABORATORY DATA: On presentation, CBC: WBC 13.3, hemoglobin 10.7, hematocrit 31.6, platelets 75. Chemistry panel: Sodium 135, potassium 3.3, chloride 98, bicarb 30, BUN 42, creatinine 1.7, glucose 141, calcium 7.4, phosphorus 2.7, magnesium 2.4, AST 112, ALT 101, albumin 2.5. Procalcitonin 1.71. UA showing moderate blood, large leukocyte esterase, 10 to 15 wbc's, trace bacteria. Chest x-ray: Directly observed showing some pulmonary vascular congestion, chronic granulomatous changes. ASSESSMENT AND PLAN: 1. End-stage renal disease, on hemodialysis. Patient with relatively stable electrolyte status with last dialysis occurring yesterday per routine. Volume status has been difficult to gauge as patient's weights have been somewhat unreliable due to being taken while patient is in a chair. Chest x-ray showing evidence of some volume excess; noted to be markedly elevated. Patient is, otherwise, in no distress and in no need for urgent hemodialysis. Plan for hemodialysis tomorrow with goal ultrafiltration of 2.5 liters. 2. Hypertensive end-stage renal disease. Blood pressure currently controlled, currently on amlodipine 10 mg daily, Coreg 6.25 mg b.i.d., valsartan 320 mg daily and continue the same for now. 3. Chronic kidney disease-mineral bone disorder. Patient with secondary hyperparathyroidism of renal origin. Calcium had been elevated lately, but has improved with patient on Sensipar 30 mg daily, should continue the same. No need for phosphate binders. 4. Anemia of end-stage renal disease. Hemoglobin has overall improved and is currently at goal of 10 to 11 g. We will continue with long-acting Epogen, formulation of Aranesp over here. 5. Systemic inflammatory response syndrome. Patient with large sacral ulcer, although does not seem overtly infected. Nevertheless, patient presented with fever and leukocytosis. Currently, started on vancomycin, doxycycline, and cefepime. Should redose vancomycin after hemodialysis tomorrow. 6. Dementia. Overall declining mental status in the setting of multiple admissions with infectious causes. Should avoid medications that may cause sedation. Thank you for this referral. We will be following up closely. Vincent Garcia MD
[2017-08-11 07:13] LABS: HEMOGLOBIN 9.9 g/dL (14.0-18.0); MEAN CELL VOLUME 83.6 fl (80.0-105.0); MEAN CORPUSCULAR HGB CONC 33.4 g/dl (31.0-37.0); PLATELET COUNT 66 10^3/uL (120.0-450.0); RBC 3.54 10^6/uL (3.5-6.1); RED CELL DISTRIBUTION WIDTH 22.2 % (11.5-14.5); WHITE BLOOD COUNT 11.1 10^3/ul (4.5-11.0)
[2017-08-11] MEDS: Acetylcysteine 20% Inhal Soln (4ml) INH SCH ×2 (07:51→21:45)
[2017-08-11] MEDS: Arformoterol 15 mcg/2 ml Inh Sol IH SCH ×2 (07:51→21:45)
[2017-08-11] MEDS: Budesonide 0.5 mg/2 ml Inhal Susp UD IH SCH ×2 (07:51→21:45)
[2017-08-11 08:18] LABS: ALB/GLOB RATIO 0.5 (1.1-1.8); ALBUMIN 2.4 g/dL (3.0-4.8); CALCIUM 6.8 mg/dL (8.4-10.5)
--- NOTE | 2017-08-11 09:15 | PN ---
DATE: 08/11/2017 SUBJECTIVE: The patient is in bed, in no acute distress, nontoxic. PHYSICAL EXAMINATION: VITAL SIGNS: Temperature is 97, blood pressure is 115/70, respiratory rate of 18. HEENT: Unremarkable. NECK: Supple. LUNGS: Have decreased breath sounds. HEART: Normal S1, S2. ABDOMEN: Soft, nontender. LABORATORY DATA: Reveals a white count of 13,300, hemoglobin of 10, platelets of 75. BUN of 42, creatinine of 1.7. Microbiology reveals gram-negative lynsey in the blood and review of orders reveals the patient to be on IV doxycycline and meropenem. ASSESSMENT AND PLAN: This is a 76-year-old male seen earlier this morning in room 364, bed 1, scheduled for dialysis today. He has a history of hypertension; diabetes; dyslipidemia; end-stage renal disease, on hemodialysis and renal cancer, status post partial nephrectomy; history of bilateral gangrenous heel ulcers and debridement, now presenting with sepsis with gram-negative lynsey bacteremia, source is not entirely clear in this patient with possible hemochromatosis, diabetes, and hypertension. We will discontinue the doxycycline, vancomycin, and we will continue with meropenem pending the identification of gram-negative lynsey, probably urine is the source with urinalysis is 10-15 and should have a CAT scan of the abdomen and pelvis to rule out GI pathology with gram-negative rods in the blood. Awaiting for the urine culture, which is pending also. The patient does have alkaline phosphatase elevation with LFT elevations. We will also order an ultrasound of the right upper quadrant for evaluation of the biliary tree. Ibrahima Lara MD
[2017-08-11] MEDS: Multivitamin Therapeutic Tab PO SCH (12:10)
[2017-08-11] MEDS: Meropenem IV 1 gm in NS 50 ML IVPB SCH ×2 (12:10→22:16)
[2017-08-11] MEDS ORDERED: Barium Sulfate Susp 2.1% w/v, 2.0% w/w 450 mL Bottle PO ONE (13:11)
--- NOTE | 2017-08-11 17:18 | US ---
HISTORY: r/o bili tree path COMPARISON: None. TECHNIQUE: Sonographic evaluation of the abdomen. FINDINGS: LIVER: Measures 13 point a cm. Diffusely increased echogenicity of the liver parenchyma. Consistent with fatty infiltration. Smooth contour. No mass. No biliary dilatation. Hepatopetal portal venous flow demonstrated. GALLBLADDER: Unremarkable. No gallstones. COMMON BILE DUCT: Measures 6 mm. No stones. No dilatation. PANCREAS: Unremarkable as visualized. No mass. No ductal dilatation. RIGHT KIDNEY: Measures 9.3cm. Diffusely increased cortical echogenicity. Lower pole cortical cyst, 1.0 x 1.8 x 2.0 cm. No calculus or hydronephrosis. LEFT KIDNEY: Measures 6.3cm. Diffusely increased cortical echogenicity. No mass, calculus or hydronephrosis. SPLEEN: Normal in size and contour. No mass. AORTA: No aneurysmal dilatation. IVC: Unremarkable. OTHER FINDINGS: None. IMPRESSION: Bilaterally echogenic kidneys consistent with medical renal disease. Fatty liver. Incidental 2.0 cm right lower pole renal cortical cyst.
--- NOTE | 2017-08-11 18:01 | RAD ---
HISTORY: reeval congestion, pl.effusions COMPARISON: 08/11/2027 FINDINGS: LUNGS: Ill-defined opacity at both lung bases which may reflect dependent pleural fluid. PLEURA: Small bilateral pleural effusion. CARDIOVASCULAR: Normal. OSSEOUS STRUCTURES: No significant abnormalities. VISUALIZED UPPER ABDOMEN: Normal. OTHER FINDINGS: None. IMPRESSION: Small bilateral pleural effusion. Ill-defined opacity at both lung bases, possibly dependent pleural fluid. Follow-up advised.
--- NOTE | 2017-08-11 18:31 | CP.PCM.PN ---
Subjective - Date & Time of Evaluation Date of Evaluation: 08/11/17 Time of Evaluation: 12:00 - Subjective Subjective: Not reporting any complaints; Objective - Vital Signs/Intake and Output Vital Signs (last 24 hours): Temp Pulse Resp BP Pulse Ox 97.8 F 62 20 120/63 100 08/10/17 16:00 08/11/17 17:58 08/10/17 16:00 08/11/17 17:58 08/10/17 16:00 Intake and Output: 08/11/17 08/11/17 06:59 18:59 Intake Total 0 Output Total 50 Balance -50 - Medications Medications: Current Medications Acetylcysteine (Acetylcysteine 20%) 3 ml INH BID [facility] Last Admin: 08/11/17 07:51 Dose: Not Given Amlodipine Besylate (Norvasc) 10 mg GT DAILY [facility] Last Admin: 08/11/17 12:24 Dose: 10 mg Arformoterol Tartrate (Brovana) 15 mcg IH [id number] [facility] Last Admin: 08/11/17 07:51 Dose: Not Given Budesonide (Pulmicort Respules) 0.5 mg IH [id number] [facility] Last Admin: 08/11/17 07:51 Dose: Not Given Carvedilol (Coreg) 6.25 mg GT BID [facility] Last Admin: 08/11/17 17:58 Dose: 6.25 mg Cinacalcet (Sensipar) 30 mg PO DAILY [facility] Last Admin: 08/11/17 12:10 Dose: 30 mg Donepezil HCl (Aricept) 10 mg GT HS [facility] Last Admin: 08/10/17 22:30 Dose: 10 mg Famotidine (Pepcid) 40 mg PO HS [facility] Last Admin: 08/10/17 21:55 Dose: 40 mg Heparin Sodium (Porcine) (Heparin) 5,000 units SC Q12H [facility] PRN Reason: Protocol Last Admin: 08/11/17 12:10 Dose: 5,000 units Meropenem (Merrem Iv 1 Gm Premix) 50 mls @ 100 mls/hr IVPB Q12 [facility] PRN Reason: Protocol Stop: 08/15/17 22:01 Last Admin: 08/11/17 12:10 Dose: 100 mls/hr Multivitamins (Thera Tab) 1 tab PO DAILY [facility] Last Admin: 08/11/17 12:10 Dose: 1 tab Pregabalin (Lyrica) 75 mg GT DAILY [facility] Last Admin: 08/11/17 12:10 Dose: 75 mg Silver Sulfadiazine (Silvadene 1% 25 Gm) 0 gm TP MWF [facility] Stop: 08/16/17 08:00 Last Admin: 08/10/17 10:52 Dose: 25 gm Valsartan (Diovan) 320 mg GT DAILY [facility] Last Admin: 08/11/17 12:24 Dose: 320 mg - Labs Labs: 08/11/17 06:30 08/11/17 06:30 PT 18.3 SECONDS (9.4-12.5) H 08/10/17 01:03 INR 1.59 (0.93-1.08) H 08/10/17 01:03 APTT 35.1 Seconds (25.1-36.5) 08/10/17 01:03 - Constitutional Appears: Non-toxic, No Acute Distress - ENT Exam ENT Exam: Mucous Membranes Moist - Respiratory Exam Respiratory Exam: Clear to Ausculation Bilateral. absent: Rales, Respiratory Distress - Cardiovascular Exam Cardiovascular Exam: RRR, +S1, +S2 - GI/Abdominal Exam GI & Abdominal Exam: Soft. absent: Distended - Extremities Exam Additional comments: mild edema of dependent areas - Neurological Exam Neurological Exam: Alert, Awake - Psychiatric Exam Psychiatric exam: absent: Agitated - Skin Skin Exam: Warm. absent: Cyanosis Assessment and Plan (1) ESRD (end stage renal disease) on dialysis Assessment & Plan: s/p HD today, extra UF due to concern for volume overload; stable resp status post HD; next HD for Sunday per routine; Status: Chronic (2) SIRS (systemic inflammatory response syndrome) Assessment & Plan: Currently afebrile; should re-dose vanco after HD if still deemed necessary; Status: Acute (3) Anemia in ESRD (end-stage renal disease) Assessment & Plan: Hgb slightly dropped, will give dose of aranesp 100 mcg; Status: Chronic (4) Chronic kidney disease-mineral and bone disorder Assessment & Plan: Corrected Ca low, due to being on sensipar; will start calcitriol 0.25 mcg daily ; Status: Chronic (5) Hypertensive CKD, ESRD on dialysis Assessment & Plan: BP controlled on current meds, continue same; Status: Acute
--- NOTE | 2017-08-12 00:18 | PN ---
DATE: 08/11/2017 REFERRING PHYSICIAN: Barber Aguirre MD. SUBJECTIVE: He is lying in the bed. Night was unremarkable. Tolerated BiPAP well, more awake and alert. Has some cough. No nausea, vomiting. No diarrhea. No leg pain or leg swelling. OBJECTIVE: GENERAL: In no acute distress. VITAL SIGNS: Temperature is 98, heart rate 60, respiratory rate is 20, blood pressure is 120/63, pulse ox is 100% on nasal canula. HEENT: Moist mucous membrane. Crowded airway. Mallampati score is 4. NECK: Supple. No JVD. LUNGS: Has a fair airflow with rhonchi. HEART: S1 and S2. ABDOMEN: Soft, nontender. No organomegaly. EXTREMITIES: Stumps look okay, bilateral AKA. NEUROLOGIC: Awake and alert, follows simple command. MEDICATIONS: He is on Mucomyst 20 % inhaled twice a day, Aricept 10 mg at bedtime, Brovana inhaled twice a day, Coreg 6.25 mg twice a day, Diovan 320 mg daily, heparin 5000 units subcu every 12 hours, Lyrica 75 mg daily, meropenem 1 g IV every 12 hours, Norvasc 10 mg daily, Pepcid 40 mg daily, Pulmicort inhaled twice a day, Sensipar 30 mg daily, multivitamins daily. LABORATORY DATA: Shows hemoglobin 9.9, hematocrit 29.6, WBC 11.2, platelet is 66. INR 1.59, PTT 35. Sodium 133, potassium 2.4, chloride 100, bicarbonate 26, BUN 59, creatinine 2.3, glucose 87, calcium 6.8, AST 82, ALT 83, alk phos is 195, albumin is 2.4. Microbiology, blood culture and urine culture has gram-negative rods. He had an ultrasound of the abdomen done, which shows bilateral echogenic kidney consistent with renal disease. CT of the abdomen done, report is pending. Chest x-ray was also done, which shows small bilateral pleural effusion, ill-defined opacities at both lung bases, possible atelectasis and effusion. IMPRESSION AND PLAN: Probably aspiration pneumonia, small effusion, renal failure, dialysis dependent, hypertension, peripheral vascular disease, bilateral above-knee amputations, oropharyngeal dysphagia, has a gastrotomy tube, may have sleep apnea syndrome, also has urinary tract infection. Continue antibiotics as per Infectious Disease. Keep head at 45 degrees. Aspiration precaution. Continue to encourage BiPAP while sleeping. Gastric and deep venous thrombosis prophylaxis. Fall precaution. Thank you and we will follow with you. Ulysses Garza MD
[2017-08-12] MEDS: Acetylcysteine 20% Inhal Soln (4ml) INH SCH ×3 (08:00→20:48)
[2017-08-12] MEDS: Arformoterol 15 mcg/2 ml Inh Sol IH SCH ×2 (08:00→20:48)
[2017-08-12] MEDS: Budesonide 0.5 mg/2 ml Inhal Susp UD IH SCH ×2 (08:00→20:49)
[2017-08-12] MEDS: Meropenem IV 1 gm in NS 50 ML IVPB SCH ×2 (09:05→21:12)
[2017-08-12] MEDS: Multivitamin Therapeutic Tab PO SCH (09:08)
[2017-08-12] MEDS ORDERED: Darbepoetin Alfa 100 mcg/ml Inj SC ONE (09:36)
--- NOTE | 2017-08-12 12:45 | CT ---
PROCEDURE: CT Abdomen and Pelvis without intravenous contrast HISTORY: gram neg rods in blood COMPARISON: 07/26/2016 TECHNIQUE: Without contrast.. Contrast Dose: 0 Radiation dose: Total exam DLP = Total exam DLP = 793.78 mGy-cm. This CT exam was performed using one or more of the following dose reduction techniques: Automated exposure control, adjustment of the mA and/or kV according to patient size, and/or use of iterative reconstruction technique. FINDINGS: LOWER THORAX: Small bilateral pleural effusion with bilateral lower lobe compressive/ subsegmental atelectasis. LIVER: Unremarkable. No gross lesion or ductal dilatation. GALLBLADDER AND BILE DUCTS: Unremarkable. PANCREAS: Coarse calcification in the distal pancreatic tail and coarse calcification in the pancreatic head, particularly in the region of the uncinate process. Unchanged from prior CT. Significance uncertain. Possible chronic pancreatitis. No discrete mass identified. No pancreatic ductal dilatation or peripancreatic fluid. SPLEEN: Unremarkable. ADRENALS: Unremarkable. No mass. KIDNEYS AND URETERS: 1.2 cm right lower pole renal cortical cyst. Isodose/slightly hyperdense 1.8 cm right upper pole renal mass unchanged from prior. Possible hyperdense cyst. Please note that correlating with ultrasound examination of 2017, no hyperdense cyst or solid mass was seen in the upper pole of the right kidney. This may be artifactual. Stable 2.2 cm peripherally calcified mass in the upper pole left kidney, again without corresponding sonographic abnormality. Sonographic evaluation of the left kidney was somewhat limited at the time of the recent examination. VASCULATURE: Unremarkable. No aortic aneurysm. BOWEL: Unremarkable. No obstruction. No gross mural thickening. APPENDIX: Unremarkable. Normal appendix. PERITONEUM: No ascites or pneumoperitoneum. Mild presacral soft tissue thickening common nonspecific. New since prior examination. LYMPH NODES: Unremarkable. No enlarged lymph nodes. BLADDER: Decompressed around Patel catheter balloon. REPRODUCTIVE: Unremarkable prostate. BONES: No acute fracture. OTHER FINDINGS: None. IMPRESSION: Small bilateral pleural effusion with lower lobe compressive atelectasis. Coarse pancreatic calcifications as described, unchanged from prior CT examination of 1 year previous. Bilateral renal masses as described. No suspicious masses. No significant change from prior CT. Mild nonspecific presacral soft tissue thickening. No additional abnormality peer
--- NOTE | 2017-08-12 14:23 | PN ---
DATE: 08/12/2017 SUBJECTIVE: The patient is in bed, in no acute distress, nontoxic, was seen early this morning. No fevers and chills. Had an uneventful night. PHYSICAL EXAMINATION VITAL SIGNS: Temperature is 97, blood pressure is 125/50, respiratory rate of 18. HEENT: Unremarkable. NECK: Supple. LUNGS: Have decreased breath sounds. HEART: Normal S1 and S2. ABDOMEN: Soft and nontender. LABORATORY DATA: Reveals a white count of 11,000, hemoglobin of 9, platelets of 66. Chemistries are noted, BUN of 59, creatinine of 2.3. Urinalysis is noted, 10-15 wbc's, large leukocyte esterase. Serology is noted. Microbiology reveals there is gram-negative lynsey in the blood and there is gram-negative lynsey in the urine. Review of orders reveals the patient to be on meropenem. The patient did have a CAT scan of the abdomen, results are pending. ASSESSMENT AND PLAN: This is a 76-year-old male who was seen early this morning in room 364, bed 1 with hypertension, diabetes, dyslipidemia, end-stage renal disease on hemodialysis, renal cancer status post partial nephrectomy, bilateral gangrene, sepsis with a gram-negative lynsey bacteremia, with gram-negative lynsey in the urine, must rule out GI as the source also, currently on meropenem and awaiting for CAT scan of the abdomen and pelvis. The patient identification of the gram-negative lynsey in the blood and urine. The patient also did have an ultrasound of the abdomen, unremarkable gallbladder, no gallstones and no dilatation of the common bile duct measuring at 6 mm. We will follow closely with you. Ibrahima Lara MD
--- NOTE | 2017-08-12 17:15 | PN ---
DATE: 08/12/2017 PULMONARY PROGRESS NOTE REFERRING PHYSICIAN: Barber Aguirre MD. SUBJECTIVE: He is lying in the bed, sleepy, arousable. Night was unremarkable. Tolerated BiPAP okay. No headache. No rhinitis. Cough is better. No nausea, vomiting. No diarrhea. OBJECTIVE: GENERAL: In no acute distress. VITAL SIGNS: Temp is 98, heart rate is 60, respiratory rate is 20, blood pressure 134/84, pulse ox is 100% on nasal cannula. HEENT: Moist mucous membrane. Crowded airway. Mallampati score is 4. NECK: Supple. No JVD. LUNGS: Have a fair airflow with few rhonchi. HEART: S1 and S2. ABDOMEN: Soft and nontender. No organomegaly. G-tube area looks okay. EXTREMITIES: Have bilateral AKA. NEUROLOGICAL: Sleepy, arousable, follows simple command. LABORATORY DATA: Showed blood sugar this morning 106. Microbiology: Blood culture has E. coli. Urine has E. coli and Enterococcus faecium. MEDICATIONS: He is on Mucomyst 20% inhaled twice a day, Aricept 10 mg at bedtime, Brovana inhaled twice a day, Coreg 6.25 mg twice a day, Diovan 320 mg daily, heparin 5000 units subcu every 12 hours, Lyrica 75 mg daily. Meropenem 1 g IV every 12 hours, Norvasc 10 mg daily, Os-Gideon 500 mg daily, Pepcid 40 mg daily, Pulmicort inhaled twice a day, Sensipar 30 mg daily, multivitamins daily. IMPRESSION AND PLAN: Sepsis with Escherichia coli bacteremia, source probably is genitourinary tract, basilar pneumonia, small effusion, renal failure, dialysis dependent, hypertension, peripheral vascular disease, bilateral above-knee amputations, oropharyngeal dysphagia requiring gastrostomy tube, may have sleep apnea syndrome, Continue antibiotics as per Infectious Disease. Keep head at 45 degrees. Continue inhaled bronchodilator, bilevel positive airway pressure while sleeping. Gastric prophylaxis. Deep venous thrombosis prophylaxis. Pressure ulcers precaution. Thank you and we will follow with you. We will order labs from the morning again. Ulysses Garza MD [facility] # [id number]
[2017-08-13 06:52] LABS: ALB/GLOB RATIO 0.5 (1.1-1.8); ALBUMIN 2.6 g/dL (3.0-4.8); CALCIUM 7.2 mg/dL (8.4-10.5)
[2017-08-13] MEDS: Arformoterol 15 mcg/2 ml Inh Sol IH SCH ×2 (07:43→21:34)
[2017-08-13] MEDS: Budesonide 0.5 mg/2 ml Inhal Susp UD IH SCH ×2 (07:43→21:35)
[2017-08-13] MEDS: Multivitamin Therapeutic Tab PO SCH (09:20)
[2017-08-13] MEDS: Meropenem IV 1 gm in NS 50 ML IVPB SCH ×2 (09:21→21:48)
[2017-08-13] MEDS: Silver Sulfadiazine 1% Cream (25 gm) TP SCH (09:29)
--- NOTE | 2017-08-13 15:02 | PN ---
DATE: 08/11/2017 SUBJECTIVE: The patient seems doing well, had dialysis, afebrile. No chest pain, no shortness of breath and seems doing better, currently on IV antibiotic. PHYSICAL EXAMINATION VITAL SIGNS: Temperature is 97.8, heart rate is 55, blood pressure 115/72, respirations ; 2 liter nasal cannula, saturating 98%. HEAD AND NECK: Normal. No JVD, no thyromegaly. CHEST: Clear. Good air entry. CARDIAC: First sound and second sound normal. ABDOMEN: Soft, nontender. PEG tube feeding site is clean. EXTREMITIES: Bilateral [id number] amputations. LABORATORY STUDIES: Noted for sugar, low 64 and the following labs, sodium 133, potassium 3.4, chloride 100, bicarbonate 26, BUN 59, creatinine 2.3. The patient's blood sugar is now 141. His calcium 6.8. Liver enzyme is elevated 82 AST, 83 ALT, alkaline phosphatase 195. The patient also had CBC, which shows white count 11.1, hemoglobin 9.9, hematocrit 29.6, and platelets 66. IMPRESSION AND PLAN 1. Fever with blood culture positive for Gram-negative Escherichia coli, source unclear. ID consult, Dr. Lara, has seen the patient. Further workup will be done including ultrasound, CT. Currently, he is on vancomycin and meropenem. We will continue to follow up on that. 2. Chronic renal failure. Continue hemodialysis. 3. The patient is on percutaneous endoscopic gastrostomy tube feeding. We will increase the feeding slowly as tolerated to flushings of percutaneous endoscopic gastrostomy tube with 200 mL 3 times a day. Continue current therapy. We will follow up clinically. 4. Hypertension. Continue blood pressure medications which include Norvasc 10 mg, valsartan 320, Coreg 6.25 b.i.d. The patient is stable hemodynamically. 5. Dementia, chronic. 6. Chronic hepatitis B. 7. Chronic obstructive pulmonary disease. Continue current medications. The patient has the following medications, Mucomyst b.i.d., Aricept 10 mg at night, Bactroban locally, Brovana, Coreg 6.25 b.i.d. through the feeding tube, Diovan 320, heparin 5000 every 12 hours, Lyrica 75 through the G-tube once a day, meropenem 1 g every 12 hours, Norvasc 10, calcium with vitamin D, Pepcid 40, Pulmicort inhalation through the nebulizer, Silvadene cream at the site and multivitamins p.o. Continue current therapy. We will follow up clinically. Barber Aguirre MD
--- NOTE | 2017-08-13 15:03 | PN ---
DATE: 08/12/2017 SUBJECTIVE: The patient is comfortable, afebrile. No chest pain, no short of breath, getting the feeding, 30 mL, we will increase that to 40, then we will go up to 50 mL. PHYSICAL EXAMINATION VITAL SIGNS: Blood pressure 130/80, temperature 98, heart rate 60, blood pressure is 134/84. HEAD AND NECK: Normal. No JVD. No thyromegaly. CHEST: Clear. Good air entry. CARDIAC: First sound and second sound normal. ABDOMEN: Soft, nontender. EXTREMITIES: Bilateral [id number] amputations. NEUROLOGIC: The patient is awake, alert and stable. LABORATORY DATA: Laboratories has been ordered for tomorrow. The patient also had Gram negative in the blood. The patient also had ultrasound of the abdomen, which was negative for any gallstones. CT of abdomen and pelvis still pending. IMPRESSION AND PLAN 1. Gram-negative sepsis. The patient had leukocytosis, had a fever of 101 and has Gram negative in the blood. Continue IV antibiotics, meropenem. The patient has already got vancomycin before in dialysis. We will follow up with ID recommendations. 2. The patient does have chronic hepatitis B versus chronic elevation of liver enzymes and thrombocytopenia secondary to liver disease and splenomegaly, underlying hepatitis. 3. Hypertension, stable. Continue current blood pressure medicines. 4. Chronic renal failure, on hemodialysis. Continue that. 5. Chronic obstructive pulmonary disease. Continue bronchodilators and Mucomyst and we will follow up clinically. Continue current treatment. We will discuss ID consult about how long we are going to give the patient IV antibiotics, maybe we will discharge him when feasible with ID and workup is finished. Barber Aguirre MD
--- NOTE | 2017-08-13 18:03 | CP.PCM.PN ---
Subjective - Date & Time of Evaluation Date of Evaluation: 08/13/17 Time of Evaluation: 10:25 - Subjective Subjective: Comfortable, no fevers, no diarrhea, no vomiting. Objective - Vital Signs/Intake and Output Vital Signs (last 24 hours): Temp Pulse Resp BP Pulse Ox 98.4 F 60 20 147/69 100 08/13/17 09:15 08/13/17 09:15 08/13/17 09:15 08/13/17 09:15 08/13/17 09:15 Intake and Output: 08/13/17 08/13/17 06:59 18:59 Intake Total 0 Output Total 100 Balance -100 - Medications Medications: Current Medications Acetylcysteine (Acetylcysteine 20%) 3 ml INH BID [facility] Last Admin: 08/12/17 20:48 Dose: Not Given Amlodipine Besylate (Norvasc) 10 mg GT DAILY [facility] Last Admin: 08/12/17 09:20 Dose: 10 mg Arformoterol Tartrate (Brovana) 15 mcg IH [id number] [facility] Last Admin: 08/13/17 07:43 Dose: Not Given Budesonide (Pulmicort Respules) 0.5 mg IH [id number] [facility] Last Admin: 08/13/17 07:43 Dose: Not Given Calcium Carbonate (Oscal) 500 mg PO DAILY [facility] Last Admin: 08/12/17 10:34 Dose: 500 mg Carvedilol (Coreg) 6.25 mg GT BID [facility] Last Admin: 08/12/17 17:12 Dose: 6.25 mg Cinacalcet (Sensipar) 30 mg PO DAILY [facility] Last Admin: 08/12/17 09:08 Dose: 30 mg Donepezil HCl (Aricept) 10 mg GT HS [facility] Last Admin: 08/12/17 21:12 Dose: 10 mg Famotidine (Pepcid) 40 mg PO HS [facility] Last Admin: 08/12/17 21:13 Dose: 40 mg Heparin Sodium (Porcine) (Heparin) 5,000 units SC Q12H [facility] PRN Reason: Protocol Last Admin: 08/12/17 21:12 Dose: 5,000 units Meropenem (Merrem Iv 1 Gm Premix) 50 mls @ 100 mls/hr IVPB Q12 [facility] PRN Reason: Protocol Stop: 08/15/17 22:01 Last Admin: 08/12/17 21:12 Dose: 100 mls/hr Multivitamins (Thera Tab) 1 tab PO DAILY [facility] Last Admin: 08/12/17 09:08 Dose: 1 tab Mupirocin (Bactroban Ointment) 0 gm NS BID [facility] Stop: 08/17/17 18:01 Pregabalin (Lyrica) 75 mg GT DAILY [facility] Last Admin: 08/12/17 09:08 Dose: 75 mg Silver Sulfadiazine (Silvadene 1% 25 Gm) 0 gm TP MWF [facility] Stop: 08/16/17 08:00 Last Admin: 08/10/17 10:52 Dose: 25 gm Valsartan (Diovan) 320 mg GT DAILY [facility] Last Admin: 08/12/17 09:20 Dose: 320 mg - Labs Labs: 08/11/17 06:30 08/13/17 05:30 PT 18.3 SECONDS (9.4-12.5) H 08/10/17 01:03 INR 1.59 (0.93-1.08) H 08/10/17 01:03 APTT 35.1 Seconds (25.1-36.5) 08/10/17 01:03 - Constitutional Appears: Chronically Ill - Head Exam Head Exam: NORMAL INSPECTION - Respiratory Exam Respiratory Exam: Decreased Breath Sounds - Cardiovascular Exam Cardiovascular Exam: +S1, +S2 - GI/Abdominal Exam GI & Abdominal Exam: Soft. absent: Tenderness - Extremities Exam Additional comments: bilateral AKA stumps clean and intact Assessment and Plan - Assessment and Plan (Free Text) Plan: Assessment sepsis from E. coli bacteremia probably from UTI sacral decubitus ulcer R/O osteomyelitis 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 faecalis S/P left AKA Possible hemochromatosis DM HTN dyslipidemia ESRD on HD renal cancer S/P partial nephrectomy hepatitis B and C infection history of bullous pemphigoid CAD Plan continue Merrem day 4 to complete at least 10-14 days - we have not de- escalated antibiotics because of the decubitus ulcer, will follow up further imaging of the sacral area to rule out osteomyelitis will monitor clinically
--- NOTE | 2017-08-13 19:20 | CP.PCM.PN ---
Subjective - Date & Time of Evaluation Date of Evaluation: 08/13/17 Time of Evaluation: 12:00 - Subjective Subjective: No change in patient condition per nursing staff; sacral wound still clean; Objective - Vital Signs/Intake and Output Vital Signs (last 24 hours): Temp Pulse Resp BP Pulse Ox 98.1 F 62 18 150/70 99 08/13/17 18:52 08/13/17 18:52 08/13/17 18:52 08/13/17 18:52 08/13/17 18:52 Intake and Output: 08/13/17 08/14/17 18:59 06:59 Intake Total 0 Output Total 100 Balance -100 - Medications Medications: Current Medications Acetylcysteine (Acetylcysteine 20%) 3 ml INH BID [facility] Last Admin: 08/12/17 20:48 Dose: Not Given Amlodipine Besylate (Norvasc) 10 mg GT DAILY [facility] Last Admin: 08/13/17 09:20 Dose: 10 mg Arformoterol Tartrate (Brovana) 15 mcg IH [id number] [facility] Last Admin: 08/13/17 07:43 Dose: Not Given Budesonide (Pulmicort Respules) 0.5 mg IH [id number] [facility] Last Admin: 08/13/17 07:43 Dose: Not Given Calcium Carbonate (Oscal) 500 mg PO DAILY [facility] Last Admin: 08/13/17 09:21 Dose: 500 mg Carvedilol (Coreg) 6.25 mg GT BID [facility] Last Admin: 08/13/17 17:40 Dose: 6.25 mg Cinacalcet (Sensipar) 30 mg PO DAILY [facility] Last Admin: 08/13/17 09:20 Dose: 30 mg Donepezil HCl (Aricept) 10 mg GT HS [facility] Last Admin: 08/12/17 21:12 Dose: 10 mg Famotidine (Pepcid) 40 mg PO HS [facility] Last Admin: 08/12/17 21:13 Dose: 40 mg Heparin Sodium (Porcine) (Heparin) 5,000 units SC Q12H [facility] PRN Reason: Protocol Last Admin: 08/13/17 09:19 Dose: 5,000 units Meropenem (Merrem Iv 1 Gm Premix) 50 mls @ 100 mls/hr IVPB Q12 [facility] PRN Reason: Protocol Stop: 08/15/17 22:01 Last Admin: 08/13/17 09:21 Dose: 100 mls/hr Multivitamins (Thera Tab) 1 tab PO DAILY [facility] Last Admin: 08/13/17 09:20 Dose: 1 tab Mupirocin (Bactroban Ointment) 0 gm NS BID [facility] Stop: 08/17/17 18:01 Last Admin: 08/13/17 17:41 Dose: 1 applic Pregabalin (Lyrica) 75 mg GT DAILY [facility] Last Admin: 08/13/17 09:21 Dose: 75 mg Silver Sulfadiazine (Silvadene 1% 25 Gm) 0 gm TP MWF [facility] Stop: 08/16/17 08:00 Last Admin: 08/13/17 09:29 Dose: 1 gm Valsartan (Diovan) 320 mg GT DAILY [facility] Last Admin: 08/13/17 09:20 Dose: 320 mg - Labs Labs: 08/11/17 06:30 08/13/17 05:30 PT 18.3 SECONDS (9.4-12.5) H 08/10/17 01:03 INR 1.59 (0.93-1.08) H 08/10/17 01:03 APTT 35.1 Seconds (25.1-36.5) 08/10/17 01:03 - Constitutional Appears: Non-toxic, No Acute Distress - Eye Exam Eye Exam: absent: Scleral icterus - ENT Exam ENT Exam: Mucous Membranes Moist - Respiratory Exam Respiratory Exam: Clear to Ausculation Bilateral. absent: Respiratory Distress - Cardiovascular Exam Cardiovascular Exam: RRR, +S1, +S2 - GI/Abdominal Exam GI & Abdominal Exam: Soft. absent: Distended, Tenderness - Exam Exam: absent: Bladder Distension - Extremities Exam Additional comments: edema of dependent areas; penile swelling; - Neurological Exam Neurological Exam: Alert, Awake - Psychiatric Exam Psychiatric exam: absent: Agitated - Skin Skin Exam: Warm. absent: Cyanosis Assessment and Plan (1) ESRD (end stage renal disease) on dialysis Assessment & Plan: Relatively stable electrolyte status; will continue to challenge dry weight as patient has excess edema on exam; Status: Chronic (2) Anemia in ESRD (end-stage renal disease) Assessment & Plan: Hgb just below goal of 10-11 g; given aranesp 100 mcg, will monitor; Status: Chronic (3) Chronic kidney disease-mineral and bone disorder Assessment & Plan: Low/normal Ca, improved after dose of calcitriol and Ca supplementation; will continue to give calcitriol on HD days, 0.25 mcg; continue sensipar 30 mg daily; Status: Chronic (4) Hypertensive CKD, ESRD on dialysis Assessment & Plan: BP stable, continue current anti-htn meds; Status: Chronic (5) Sepsis Assessment & Plan: On meropenem for E coli sepsis due to UTI; consider decreasing to q24h dosing for ESRD; Status: Acute
--- NOTE | 2017-08-13 19:45 | HP ---
DATE OF EXAM: 08/10/2017 MAIN COMPLAINT: Fever of 101 at group home. HISTORY OF PRESENT ILLNESS: This is a 76-year-old male with history of chronic renal failure, on hemodialysis, he also has bilateral lower extremity amputations, he is a bedridden, the patient also had history of hypertension and he has a feeding history of PEG tube feeding. The patient came in, brought in because he had a fever of 101. There is no nausea, no vomiting, no obvious sores on the skin. The patient was brought in for further evaluations. He came to the ER, workup was done and was admitted to medical floor. Blood culture was obtained and the patient was started on IV antibiotics, to be followed later. There is no other abdominal pain. No chest pain. Not short of breath. No headaches. The patient is awake, no change in mental status according to him. PAST MEDICAL HISTORY: As above. The patient does have bilateral leg above-knee amputations. He has hemodialysis for chronic kidney failure, chronic hepatitis B, dementia, dysphagia, PEG tube feeding, hypertension, and patient also is a group home resident. ALLERGIES: NO KNOWN ALLERGIES. SOCIAL HISTORY: No smoking, no drinking. He lives at group home. REVIEW OF SYSTEMS: As in the present illness. PHYSICAL EXAMINATION VITAL SIGNS: Temperature is 97.8, heart rate is in the 70s, blood pressure 128/49, respirations 18, and saturating 100% on nonrebreather and 100% on nasal cannula 2 liters. HEAD AND NECK: Normal. No JVD. No thyromegaly. CHEST: Bilaterally clear. CARDIAC: First sound and second sound are normal. ABDOMEN: Soft, nontender. PEG site is clean. EXTREMITIES: Lower extremity, bilateral above-knee amputations. NEUROLOGIC: The patient is awake and alert, but he is disoriented and he does have dementia. LABORATORY DATA: When he came, white count was high 13.3, hemoglobin 10.7, hematocrit 31.6, platelets 75 and granulocytes 86.8, which is elevated. Chemistry, he came in, sodium 135, potassium 3.3, chloride 98, bicarb 30, BUN 42, creatinine 1.7, blood sugar 121, calcium 7.4, liver enzyme is elevated. The patient also had procalcitonin, which was done was high 1.71. Troponin was 0.02. The patient also had chest x-ray, while in the emergency room and it was reported as no active pulmonary disease. IMPRESSION AND PLAN: This is a 76-year-old male who has multiple medical problems, came in with fever of 101 and he was kind of lethargic in the group home, brought in for further evaluations. We will admit the patient, blood cultures and will start the patient on IV antibiotics, ID consults and Nephrology consults. We will start the feeding slowly at 30 mL and we will resume his blood pressure medicine and we will follow up clinically. The patient will be started on another gram of vancomycin and blood culture was sent and we will follow up with the other consultants. Barber Aguirre MD
[2017-08-13] MEDS: Acetylcysteine 20% Inhal Soln (4ml) INH SCH (21:35)
--- NOTE | 2017-08-14 03:26 | PN ---
DATE: 08/13/2017 SUBJECTIVE: Patient is comfortable, awake, alert, in no distress, getting IV antibiotics and dialysis. Has no other complaints. Afebrile. PHYSICAL EXAMINATION: VITAL SIGNS: Today on 08/13/2017, temperature 98.1, heart rate 62, blood pressure 150/70, respirations 18, saturating 99%. HEAD AND NECK: Normal. No JVD, no thyromegaly. CHEST: Clear bilaterally. CARDIAC: First sound and second sound normal. ABDOMEN: Soft, nontender. PEG tube site is clean. EXTREMITIES: Lower extremities, bilateral above-knee amputations. LABORATORY DATA: Showed sodium 131, potassium 3.6, chloride 96, bicarb 25, BUN is 64, creatinine 2.3. Patient also had blood sugar of 127, calcium 7.2, AST is 97, ALT is 74, alk phos 258. IMPRESSION AND PLAN: 1. Gram-negative sepsis. Patient had an ultrasound, which was negative. He also had a CT of the abdomen and pelvis, which was reported as small bilateral pleural effusion, lower lobe compression, atelectasis, coarse pancreatic calcification, unchanged from previous CT, bilateral renal masses as described, no suspicious masses, no significant change from prior CT, mild nonspecific pancreatic head soft issue thickening, no additional abnormality. Plan, continue IV antibiotics. Patient is getting meropenem 1 g every 12 hours and seems stable. 2. Chronic renal failure, on hemodialysis. He has had vancomycin already. We will continue hemodialysis. 3. Chronic obstructive pulmonary disease. Continue Mucomyst. Continue bronchodilators, Pulmicort. 4. Chronic hepatitis B. Patient does have also hepatitis B, not a candidate for any antiviral therapy. Seen by GI in the past. 5. Hypertension, controlled. Continue Coreg 6.25 mg b.i.d., Diovan 320 once a day and Norvasc 10 mg once a day. 6. Chronic dementia, stable, no distress. Patient on Aricept 10 mg via percutaneous endoscopic gastrostomy tube. 7. Cerebrovascular accident, stroke, with resolved dysphasia. Continue percutaneous endoscopic gastrostomy tube feeding. 8. Chronic renal failure, continue hemodialysis. He is getting Sensipar 30 mg p.o. daily and he is getting Os-Gideon 500 mg p.o. daily and patient seems otherwise stable. Continue multivitamins. Probably, we will discharge the patient soon. We will discuss further with the Infectious Disease consultation, Dr. Huitron, who is covering for Dr. Lara. Barber Aguirre MD
--- NOTE | 2017-08-14 08:01 | CP.PCM.CON ---
History of Present Illness - History of Present Illness History of Present Illness: Surgery: Dr. Joy CC: Stage IV sacral decub HPI: 76M w. pmh includes dementia, ESRD, hypertension, diabetes and peripheral vascular disease, was brought in by EMS to the emergency department for evaluation of fever, and cough. Surgery was consulted for stage IV sacral decubitus. Pt is non-verbal hx gathered from review of chart PMH: see above PSH: KARSON VALDOVINOS, B/L AKAntonina Meds: MAr reviewed NKDA Social: No ETOH/tobacco/drugs Fhx: non-contributory Review of Systems - Review of Systems All systems: reviewed and no additional remarkable complaints except (HPI) Past Patient History - Infectious Disease Hx of Infectious Diseases: None - Tetanus Immunizations Tetanus Immunization: Unknown - Past Medical History & Family History Past Medical History?: Yes - Past Social History Smoking Status: Never Smoked - CARDIAC Hx Hypertension: Yes - PULMONARY Hx Chronic Obstructive Pulmonary Disease (COPD): Yes - NEUROLOGICAL HX Cerebrovascular Accident: Yes Hx Dementia: Yes - HEENT Hx HEENT Problems: No (WEARS RX GLASSES) - RENAL Hx Dialysis: Yes Date of Last Dialysis Treatment: 06/05/17 Hx Renal Failure: Yes (wiht hemodialysis) - ENDOCRINE/METABOLIC Hx Diabetes Mellitus Type 2: Yes - HEMATOLOGICAL/ONCOLOGICAL Hx Blood Transfusions: Yes Hx Blood Transfusion Reaction: No - INTEGUMENTARY Hx Dermatological Problems: Yes (Bullous pemphigoid) - MUSCULOSKELETAL/RHEUMATOLOGICAL Hx Arthritis: Yes - GASTROINTESTINAL Hx Gastrointestinal Disorders: Yes Hx Crohn's Disease: No Hx Diverticulitis: No Hx Gall Bladder Disease: No Hx Pancreatitis: No Other/Comment: + gtube - GENITOURINARY/GYNECOLOGICAL Hx Sexually Transmitted Disorders: No - PSYCHIATRIC Hx Anxiety: No Hx Bipolar Disorder: No Hx Depression: No Hx Post Traumatic Stress Disorder: No Hx Schizophrenia: No Hx Substance Use: No - SURGICAL HISTORY Hx Mastectomy: No - ANESTHESIA Hx Anesthesia Reactions: No Hx Malignant Hyperthermia: No Meds Allergies/Adverse Reactions: Allergies Allergy/AdvReac Type Severity Reaction Status Date / Time No Known Allergies Allergy Verified 08/10/17 00:38 - Medications Medications: Current Medications Acetylcysteine (Acetylcysteine 20%) [address] [facility] Last Admin: 08/13/17 21:35 Dose: Not Given Amlodipine Besylate (Norvasc) [address] [facility] Last Admin: 08/13/17 09:20 Dose: 10 mg Arformoterol Tartrate (Brovana) [id number] [facility] Last Admin: 08/13/17 21:34 Dose: Not Given Budesonide (Pulmicort Respules) 0.[id number] [facility] Last Admin: 08/13/17 21:35 Dose: Not Given Calcium Carbonate (Oscal) [address] [facility] Carvedilol (Coreg) 6.[address] [facility] Last Admin: 08/13/17 17:40 Dose: 6.25 mg Cinacalcet (Sensipar) [address] [facility] Last Admin: 08/13/17 09:20 Dose: 30 mg Donepezil HCl (Aricept) [address] [facility] Last Admin: 08/13/17 21:49 Dose: 10 mg Famotidine (Pepcid) [address] [facility] Last Admin: 08/13/17 22:56 Dose: Not Given Heparin Sodium (Porcine) (Heparin) 5,[address] [facility] PRN Reason: Protocol Last Admin: 08/13/17 21:49 Dose: 5,000 units Meropenem (Merrem Iv 1 Gm Premix) 50 mls @ 100 mls/hr IVPB Q12 [facility] PRN Reason: Protocol Stop: 08/15/17 22:01 Last Admin: 08/13/17 21:48 Dose: 100 mls/hr Multivitamins (Thera Tab) [address] [facility] Last Admin: 08/13/17 09:20 Dose: 1 tab Mupirocin (Bactroban Ointment) [address] [facility] Stop: 08/17/17 18:01 Last Admin: 08/13/17 17:41 Dose: 1 applic Pregabalin (Lyrica) [address] [facility] Last Admin: 08/13/17 09:21 Dose: 75 mg Silver Sulfadiazine (Silvadene 1% 25 Gm) [address] [facility] Stop: 08/16/17 08:00 Last Admin: 08/13/17 09:29 Dose: 1 gm Valsartan (Diovan) [address] [facility] Last Admin: 08/13/17 09:20 Dose: 320 mg Physical Exam - Constitutional Appears: Non-toxic, No Acute Distress - Head Exam Head Exam: ATRAUMATIC, NORMOCEPHALIC - Eye Exam Eye Exam: EOMI - ENT Exam ENT Exam: Mucous Membranes Moist - Neck Exam Neck exam: Positive for: Full Rom - Respiratory Exam Respiratory Exam: NORMAL BREATHING PATTERN. absent: Accessory Muscle Use, Respiratory Distress - GI/Abdominal Exam GI & Abdominal Exam: Soft. absent: Distended, Tenderness - Extremities Exam Additional comments: B/L AKA - Skin Additional comments: 6x5cm stage IV sacral decub, no odor, no necrotic tissue, beefy red base, no drainage Results - Vital Signs Recent Vital Signs: Last Vital Signs Temp 98.1 F 08/13/17 18:52 Pulse 62 08/13/17 18:52 Resp 18 08/13/17 18:52 BP 150/70 08/13/17 18:52 Pulse Ox 99 08/13/17 18:52 - Labs Result Diagrams: 08/11/17 06:30 08/13/17 05:30 Labs: Laboratory Results - last 24 hr 08/13/17 08/13/17 08/13/17 11:20 16:15 21:26 POC Glucose (mg/dL) 95 103 115 H 08/14/17 07:30 POC Glucose (mg/dL) 107 Assessment & Plan - Assessment and Plan (Free Text) Assessment: 76M W. stage IV sacral decub -Optifoam dressing w. algenate -will apply wound vac when its available -air mattress -reposition Q2h -d/w attending Pietroitis PGY3
[2017-08-14] MEDS: Budesonide 0.5 mg/2 ml Inhal Susp UD IH SCH ×2 (08:16→19:58)
[2017-08-14] MEDS: Arformoterol 15 mcg/2 ml Inh Sol IH SCH ×2 (08:16→19:58)
[2017-08-14] MEDS: Acetylcysteine 20% Inhal Soln (4ml) INH SCH (08:16)
--- NOTE | 2017-08-14 09:22 | PN ---
DATE: 08/13/2017 PULMONARY PROGRESS NOTE REFERRING PHYSICIAN: Barber Aguirre MD. SUBJECTIVE: He is lying in the bed, sleepy, arousable. Night was unremarkable. No headache. No rhinitis. No nausea, no vomiting, or diarrhea. No leg swelling . OBJECTIVE: GENERAL: In no acute distress. VITAL SIGNS: Temperature 98, heart rate 78, respiratory rate 20, blood pressure 132/69, pulse oximetry 99% on nasal cannula. HEENT: Moist mucous membrane. Crowded airway. NECK: Supple. No JVD. LUNGS: Fair airflow. No rhonchi. HEART: S1 and S2. ABDOMEN: Soft, nontender. No organomegaly. EXTREMITIES: Bilateral AKA, stumps looks okay. NEUROLOGIC: Sleepy, arousable, follows simple commands. MEDICATIONS: He is on Mucomyst 20% inhaled twice a day, Aricept 10 mg via G tube at bedtime, Brovana inhaled twice a day, Coreg mg via G-tube daily, heparin 5000 units subcutaneously every 12 hours, Lyrica 75 mg via G tube daily, meropenem 1 g IV every 12 hours, Norvasc 10 mg daily, Pepcid 40 mg at bedtime, Pulmicort inhaled twice a day, Sensipar 30 mg p.o. daily, multivitamins daily. LABORATORY DATA: Reviewed. Sodium 131, potassium 3.6, chloride 96, bicarbonate 25, BUN 64, creatinine 2.3, glucose 127, calcium 7.2. AST 97, ALT 74, alkaline phosphatase 258, albumin is 2.6. Microbiology: Blood culture and urine culture has E. coli. IMPRESSION AND PLAN: Sepsis with Escherichia coli, has bacteremia and urinary tract infection, source probably is genitourinary tract, baseline infiltrates, small effusion, renal failure, dialysis dependent, hypertension, peripheral vascular disease, bilateral above knee amputation, oropharyngeal dysphagia requiring gastrostomy tube, sleep apnea syndrome. Pulmonary point of view, doing okay. Continue bronchodilator, keep head at 45 degree, BiPAP while sleeping, aspiration precaution, antibiotics as per Infectious Diseases. Also, being followed by Nephrology. Thank you and we will follow with you. Ulysses Garza MD [facility] # [id number]
[2017-08-14 11:05] LABS: MEAN CELL VOLUME 81.7 fl (80.0-105.0); MEAN CORPUSCULAR HEMOGLOBIN 28.4 pg (25.0-35.0); MEAN CORPUSCULAR HGB CONC 34.8 g/dl (31.0-37.0); PLATELET COUNT 76 10^3/uL (120.0-450.0); RBC 3.87 10^6/uL (3.5-6.1); RED CELL DISTRIBUTION WIDTH 20.3 % (11.5-14.5)
[2017-08-14 11:09] LABS: ALB/GLOB RATIO 0.5 (1.1-1.8); ALBUMIN 2.6 g/dL (3.0-4.8); CALCIUM 7.5 mg/dL (8.4-10.5)
[2017-08-14 11:22] LABS: WHITE BLOOD COUNT 1.7 10^3/ul (4.5-11.0)
[2017-08-14] MEDS: Meropenem IV 1 gm in NS 50 ML IVPB SCH ×2 (15:58→21:12)
[2017-08-14] MEDS: Multivitamin Therapeutic Tab PO SCH (16:00)
--- NOTE | 2017-08-15 01:45 | PN ---
DATE: 08/14/2017 SUBJECTIVE: The patient is in bed, in no acute distress, nontoxic. PHYSICAL EXAMINATION: VITAL SIGNS: Temperature is 98, blood pressure is 130/60, respiratory rate of 18. HEENT: Examination of HEENT is unremarkable. NECK: Supple. LUNGS: Have decreased breath sounds. HEART: Normal S1 and S2. ABDOMEN: Soft, nontender. LABORATORY DATA: Laboratory examination reveals a white count of 1.7, hemoglobin of 11, platelets of 76. Chemistries reveals a BUN of 65, creatinine of 2.5, procalcitonin is 1.71. Urinalysis was noted. MEDICATIONS: The patient is on meropenem. ASSESSMENT AND PLAN: A 76-year-old male, seen early this morning with sepsis and Escherichia coli bacteremia, most likely from urinary tract infection, sacral decubitus as well as underlying osteomyelitis, right foot gangrene, osteomyelitis, status post [id number] amputation and diabetic, hypertensive, end-stage renal disease, on meropenem, day #5. We will complete at least 10-14 days. If the osteomyelitis is to be treated, the sacrum would need 4 weeks of antibiotics. Case was discussed with the staff on the floor. Ibrahima Lara MD
--- NOTE | 2017-08-15 05:02 | PN ---
DATE: PULMONARY PROGRESS NOTE REFERRING PHYSICIAN: Barber Aguirre MD SUBJECTIVE: He is lying in the bed, head at 45 degrees. Sleepy, arousable. Nursing staff at bedside, will be doing a PICC line. No hemoptysis, no hematemesis, no hematuria. No diarrhea. Bilateral AKA. OBJECTIVE GENERAL: In no acute distress. VITAL SIGNS: Temp is 98, heart rate 59, respiratory rate is 18, blood pressure 133/65, pulse ox 97% on nasal cannula.. HEENT: Moist mucous membrane. Crowded airway. Mallampati score is 4. NECK: Supple. No JVD. LUNGS: Have a fair airflow with rhonchi. HEART: S1 and S2. ABDOMEN: Soft, nontender. No organomegaly. EXTREMITIES: Bilateral AKA. NEUROLOGIC: Sleepy, arousable, follows simple commands. MEDICATIONS: He is on Mucomyst 20% inhaled twice a day, Aricept 10 mg at bedtime, Brovana inhaled twice a day, Coreg 6.25 mg twice a day, Diovan 320 mg daily, heparin 5000 units subcutaneously every 12 hours, Lyrica 75 mg daily, meropenem 1 g every 12 hours, Norvasc 10 mg daily, Pepcid 40 mg at bedtime, Pulmicort inhaled twice a day, Sensipar 30 mg daily, multivitamins daily. LABORATORY DATA: Shows hemoglobin 11, hematocrit 31.6, WBC 1.7, platelet count is 76. Sodium 131, potassium 3.2, chloride 97, bicarbonate 28, BUN 65, creatinine 2.4, glucose is 56, calcium 7.5. AST 98, ALT 86, alkaline phosphatase is 295, albumin is 2.6. Blood cultures and urine culture has E. coli. Had a bone scan done today, report is still pending. IMPRESSION AND PLAN: Sepsis with Escherichia coli bacteremia, basilar infiltrate, small effusion, renal failure, dialysis dependent, peripheral vascular disease requiring above-knee amputation, hypertension, oropharyngeal dysphagia, has a gastrostomy tube, may have sleep apnea syndrome. Pulmonary point of view, doing okay. Continue to encourage BiPAP use at night, supplement oxygen during the daytime, aspiration precaution, antibiotics as per Infectious Diseases, gastric prophylaxis, pressure ulcers precaution. Thank you and we will follow with you. Ulysses Garza MD
[2017-08-15 06:17] LABS: BASO # 0.04 K/mm3 (0.0-2.0); BASO % 0.6 % (0.0-3.0); EOS # 0.4 (0.0-0.7); EOS % 6.1 % (1.5-5.0); GRAN # 3.78 (1.4-6.5); GRAN % 60.2 % (50.0-68.0); HEMOGLOBIN 11.7 g/dL (14.0-18.0); LYMPH # 1.1 (1.2-3.4); LYMPH % 17.2 % (22.0-35.0); MEAN CORPUSCULAR HEMOGLOBIN 28.1 pg (25.0-35.0); MEAN CORPUSCULAR HGB CONC 34.3 g/dl (31.0-37.0); MONO % 15.9 % (1.0-6.0); PLATELET COUNT 75 10^3/uL (120.0-450.0); RBC 4.16 10^6/uL (3.5-6.1); RED CELL DISTRIBUTION WIDTH 20.8 % (11.5-14.5); WHITE BLOOD COUNT 6.3 10^3/ul (4.5-11.0)
--- NOTE | 2017-08-15 06:49 | CP.PCM.PN ---
Subjective - Date & Time of Evaluation Date of Evaluation: 08/14/17 Time of Evaluation: 11:00 - Subjective Subjective: Patient seen on HD; non-verbal mostly; Objective - Vital Signs/Intake and Output Vital Signs (last 24 hours): Temp Pulse Resp BP Pulse Ox 98.7 F 82 18 133/72 97 08/14/17 16:00 08/14/17 21:11 08/14/17 16:00 08/14/17 21:11 08/14/17 16:00 Intake and Output: 08/14/17 08/15/17 18:59 06:59 Intake Total 0 0 Output Total 100 Balance 0 -100 - Medications Medications: Current Medications Acetylcysteine (Acetylcysteine 20%) 3 ml INH BID [facility] Last Admin: 08/14/17 08:16 Dose: 3 ml Amlodipine Besylate (Norvasc) 5 mg GT DAILY [facility] Arformoterol Tartrate (Brovana) 15 mcg IH [id number] [facility] Last Admin: 08/14/17 19:58 Dose: 15 mcg Budesonide (Pulmicort Respules) 0.5 mg IH [id number] [facility] Last Admin: 08/14/17 19:58 Dose: 0.5 mg Calcium Carbonate (Oscal) 500 mg GT DAILY [facility] Last Admin: 08/14/17 16:00 Dose: 500 mg Carvedilol (Coreg) 6.25 mg GT BID [facility] Last Admin: 08/14/17 21:11 Dose: 6.25 mg Cinacalcet (Sensipar) 30 mg PO DAILY [facility] Last Admin: 08/14/17 16:00 Dose: 30 mg Donepezil HCl (Aricept) 10 mg GT HS [facility] Last Admin: 08/14/17 21:11 Dose: 10 mg Famotidine (Pepcid) 40 mg PO HS [facility] Last Admin: 08/14/17 21:13 Dose: 40 mg Heparin Sodium (Porcine) (Heparin) 5,000 units SC Q12H [facility] PRN Reason: Protocol Last Admin: 08/14/17 21:12 Dose: 5,000 units Meropenem (Merrem Iv 1 Gm Premix) 50 mls @ 100 mls/hr IVPB Q12 [facility] PRN Reason: Protocol Stop: 08/15/17 22:01 Last Admin: 08/14/17 21:12 Dose: 100 mls/hr Multivitamins (Thera Tab) 1 tab PO DAILY [facility] Last Admin: 08/14/17 16:00 Dose: 1 tab Mupirocin (Bactroban Ointment) 0 gm NS BID [facility] Stop: 08/17/17 18:01 Last Admin: 08/14/17 18:47 Dose: 1 applic Pregabalin (Lyrica) 75 mg GT DAILY [facility] Last Admin: 08/14/17 15:59 Dose: 75 mg Silver Sulfadiazine (Silvadene 1% 25 Gm) 0 gm TP MWF [facility] Stop: 08/16/17 08:00 Last Admin: 08/13/17 09:29 Dose: 1 gm Valsartan (Diovan) 320 mg GT DAILY [facility] Last Admin: 08/14/17 16:01 Dose: 320 mg - Labs Labs: 08/14/17 10:38 08/14/17 10:38 PT 18.3 SECONDS (9.4-12.5) H 08/10/17 01:03 INR 1.59 (0.93-1.08) H 08/10/17 01:03 APTT 35.1 Seconds (25.1-36.5) 08/10/17 01:03 - Constitutional Appears: Non-toxic, No Acute Distress - Eye Exam Eye Exam: absent: Scleral icterus - ENT Exam ENT Exam: Mucous Membranes Moist - Respiratory Exam Respiratory Exam: NORMAL BREATHING PATTERN. absent: Rhonchi, Respiratory Distress - Cardiovascular Exam Cardiovascular Exam: RRR, +S1, +S2 - GI/Abdominal Exam GI & Abdominal Exam: Soft. absent: Tenderness - Extremities Exam Additional comments: edema of dependent areas; - Neurological Exam Neurological Exam: Alert, Awake - Psychiatric Exam Psychiatric exam: absent: Agitated - Skin Skin Exam: Warm. absent: Cyanosis Assessment and Plan (1) ESRD (end stage renal disease) on dialysis Assessment & Plan: Has edema on exam; mild hypokalemia; will challenge with UF on HD; Status: Chronic (2) Anemia in ESRD (end-stage renal disease) Assessment & Plan: Stable, continuing with aranesp weekly; Status: Chronic (3) Chronic kidney disease-mineral and bone disorder Assessment & Plan: Low/normal Ca; continue Ca supplementation; continue sensipar for high PTH; Status: Chronic (4) Hypertensive CKD, ESRD on dialysis Assessment & Plan: BP controlled; will decrease amlodipine to 5 mg to allow us to achieve UF on HD; Status: Chronic (5) Sepsis Assessment & Plan: Ecoli sepsis; will get total 2 weeks of meropenem, dosed for ESRD; Status: Acute
[2017-08-15] MEDS ORDERED: oxyCODONE 5 mg Immediate Release Tab PO PRN (07:31)
[2017-08-15 07:32] LABS: ALB/GLOB RATIO 0.5 (1.1-1.8); ALBUMIN 2.6 g/dL (3.0-4.8); CALCIUM 7.6 mg/dL (8.4-10.5)
[2017-08-15 08:14] VITALS: O2SAT 98
[2017-08-15] MEDS: Acetylcysteine 20% Inhal Soln (4ml) INH SCH (08:16)
[2017-08-15] MEDS: Arformoterol 15 mcg/2 ml Inh Sol IH SCH (08:17)
[2017-08-15] MEDS: Budesonide 0.5 mg/2 ml Inhal Susp UD IH SCH (08:17)
[2017-08-15] MEDS: Meropenem IV 1 gm in NS 50 ML IVPB SCH (09:33)
[2017-08-15] MEDS: Multivitamin Therapeutic Tab PO SCH (09:34)
--- NOTE | 2017-08-15 10:10 | NM ---
PROCEDURE: Three-phase bone scan HISTORY: eval for osteomyelitis, eval sacral wound COMPARISON: 08/11/2017 CT abdomen and pelvis TECHNIQUE: Following administration of 17.4 miCu of Tc MDP multiplanar whole body images were obtained. FINDINGS: Flow component: Unremarkable. Blood pool component: Accumulation of radionuclide in the soft tissues corresponding findings on recent CT scan. Delayed images at 3:00: Unremarkable. Other findings: None. IMPRESSION: No scintigraphic evidence of acute osteomyelitis. Particular attention directed to the sacrum.
--- NOTE | 2017-08-15 12:14 | PN ---
DATE: 08/14/2017 SUBJECTIVE: The patient is on dialysis. Seems comfortable. No distress. He opened his eyes. He moved his head. He does not talk much, but does not seem to be in pain or any distress. He is getting dialysis currently. PHYSICAL EXAMINATION: VITAL SIGNS: Temperature 98.8, heart rate 58, blood pressure 134/64, respirations 20, and saturation 100%. HEAD AND NECK: Normal. No JVD. No thyromegaly. CHEST: Clear. Good air entry. CARDIAC: First sound and second sound are normal. ABDOMEN: Soft and nontender. PEG site is normal and clean. EXTREMITIES: Bilateral above-knee amputations. Large sacral decubitus, looks like stage 3 . IMPRESSION AND PLAN: 1. Gram-negative bacteremia sepsis. Continue IV meropenem. ID recommendations. Will be followed minimum 2 weeks. 2. Large sacral decubitus. We will discuss with Dr. Joy, possibly get triphasic bone scan. If it is, we will continue IV antibiotics in the [place] [facility]. The patient unfortunately has bilateral above-knee amputations, difficult to move from one side to side by himself and in spite of doing precautions and bed changes at the [place] [facility], but still high risk for sacral decubitus especially with his underlying medical conditions. We will continue local wound care by surgical consults and we will follow up clinically. 3. Chronic renal failure. Continue hemodialysis. 4. Hypertension. Continue current blood pressure medicines. Medication seems stable. 5. Chronic obstructive pulmonary disease. Continue nebulizers and Mucomyst nebulizer twice a day. The patient otherwise, doing okay. CURRENT MEDICATIONS: Mucomyst, Aricept, Brovana, Bactroban local, Coreg 6.25 b.i.d., Diovan, heparin subcu, Lyrica, Merrem, Norvasc 5 mg daily, Proscar, vitamin D, Pepcid, Pulmicort, Sensipar, Silvadene cream, and multivitamins. The patient will get PICC line for continuation of IV antibiotics and we will follow up clinically. Barber Aguirre MD [facility] # [id number]
[2017-08-15] MEDS: Silver Sulfadiazine 1% Cream (25 gm) TP SCH (12:23)
--- NOTE | 2017-08-15 13:26 | CP.PCM.CON ---
History of Present Illness - History of Present Illness History of Present Illness: PGY-2 heme/onc consult note 76 year old male with PMH of HTN, DM, dyslipidemia, ESRD on HD, renal cancer S/ P partial nephrectomy, history of bilateral gangrenous heel ulcers S/P amputation GREG was brought in to [facility] from the senior care because of cough, shortness of breath and fever. Patient at baseline dose not speak. Information taken from previous notes. Patient had fever of 101, no note of vomiting, no diarrhea. Patient was admitted for further work up. Patient was noted to be leukopenic and Heme/onc was consulted. Review od systems could note be completed due to patient baseline status. 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 Review of Systems - Review of Systems Systems not reviewed;Unavailable: Dementia, Other (hector does not speak) Past Patient History - Infectious Disease Hx of Infectious Diseases: None - Tetanus Immunizations Tetanus Immunization: Unknown - Past Medical History & Family History Past Medical History?: Yes - Past Social History Smoking Status: Never Smoked - CARDIAC Hx Pacemaker: No - PULMONARY Hx Chronic Obstructive Pulmonary Disease (COPD): Yes - NEUROLOGICAL HX Cerebrovascular Accident: Yes Hx Dementia: Yes - HEENT Hx HEENT Problems: No (WEARS RX GLASSES) - RENAL Hx Dialysis: Yes Date of Last Dialysis Treatment: 06/05/17 Hx Renal Failure: Yes (wiht hemodialysis) - ENDOCRINE/METABOLIC Hx Diabetes Mellitus Type 2: Yes - HEMATOLOGICAL/ONCOLOGICAL Hx Cancer: No - INTEGUMENTARY Hx Dermatological Problems: Yes (Bullous pemphigoid) - MUSCULOSKELETAL/RHEUMATOLOGICAL Hx Arthritis: Yes - GASTROINTESTINAL Hx Gastrointestinal Disorders: Yes Hx Crohn's Disease: No Hx Diverticulitis: No Hx Gall Bladder Disease: No Hx Pancreatitis: No Other/Comment: + gtube - GENITOURINARY/GYNECOLOGICAL Hx Sexually Transmitted Disorders: No - PSYCHIATRIC Hx Anxiety: No Hx Bipolar Disorder: No Hx Depression: No Hx Post Traumatic Stress Disorder: No Hx Schizophrenia: No Hx Substance Use: No - SURGICAL HISTORY Hx Mastectomy: No - ANESTHESIA Hx Anesthesia Reactions: No Hx Malignant Hyperthermia: No Meds Allergies/Adverse Reactions: Allergies Allergy/AdvReac Type Severity Reaction Status Date / Time No Known Allergies Allergy Verified 08/10/17 00:38 - Medications Medications: Current Medications Acetylcysteine (Acetylcysteine 20%) 3 ml INH BID [facility] Last Admin: 08/15/17 08:16 Dose: 3 ml Amlodipine Besylate (Norvasc) 5 mg GT DAILY [facility] Last Admin: 08/15/17 09:34 Dose: 5 mg Arformoterol Tartrate (Brovana) 15 mcg IH [id number] [facility] Last Admin: 08/15/17 08:17 Dose: 15 mcg Budesonide (Pulmicort Respules) 0.5 mg IH [id number] [facility] Last Admin: 08/15/17 08:17 Dose: 0.5 mg Calcium Carbonate (Oscal) 500 mg GT DAILY [facility] Last Admin: 08/15/17 09:33 Dose: 500 mg Carvedilol (Coreg) 6.25 mg GT BID [facility] Last Admin: 08/15/17 09:34 Dose: 6.25 mg Cinacalcet (Sensipar) 30 mg PO DAILY [facility] Last Admin: 08/15/17 09:33 Dose: 30 mg Donepezil HCl (Aricept) 10 mg GT HS [facility] Last Admin: 08/14/17 21:11 Dose: 10 mg Famotidine (Pepcid) 40 mg PO HS [facility] Last Admin: 08/14/17 21:13 Dose: 40 mg Heparin Sodium (Porcine) (Heparin) 5,000 units SC Q12H [facility] PRN Reason: Protocol Last Admin: 08/15/17 09:35 Dose: Not Given Meropenem (Merrem Iv 1 Gm Premix) 50 mls @ 100 mls/hr IVPB Q12 [facility] PRN Reason: Protocol Stop: 08/15/17 22:01 Last Admin: 08/15/17 09:33 Dose: 100 mls/hr Multivitamins (Thera Tab) 1 tab PO DAILY [facility] Last Admin: 08/15/17 09:34 Dose: 1 tab Mupirocin (Bactroban Ointment) 0 gm NS BID [facility] Stop: 08/17/17 18:01 Last Admin: 08/15/17 09:41 Dose: 1 applic Oxycodone HCl (Oxycodone Immediate Release Tab) 5 mg PO BID PRN PRN Reason: Pain, moderate (4-7) Pregabalin (Lyrica) 75 mg GT DAILY [facility] Last Admin: 08/15/17 09:33 Dose: 75 mg Silver Sulfadiazine (Silvadene 1% 25 Gm) 0 gm TP MWF [facility] Stop: 08/16/17 08:00 Last Admin: 08/15/17 12:23 Dose: Not Given Valsartan (Diovan) 320 mg GT DAILY [facility] Last Admin: 08/15/17 09:33 Dose: 320 mg Physical Exam - Constitutional Appears: No Acute Distress - Head Exam Head Exam: ATRAUMATIC, NORMOCEPHALIC - Eye Exam Eye Exam: Normal appearance - ENT Exam ENT Exam: Mucous Membranes Moist - Respiratory Exam Respiratory Exam: Clear to Auscultation Bilateral, NORMAL BREATHING PATTERN. absent: Rhonchi, Wheezes, Respiratory Distress - Cardiovascular Exam Cardiovascular Exam: REGULAR RHYTHM. absent: Bradycardia, Tachycardia, Systolic Murmur - GI/Abdominal Exam GI & Abdominal Exam: Normal Bowel Sounds, Soft. absent: Distended, Firm, Tenderness - Extremities Exam Additional comments: bilateral aka - Skin Skin Exam: Dry, Intact, Normal Color, Warm Additional comments: av fistula on right arm Results - Vital Signs Recent Vital Signs: Last Vital Signs Temp 97.7 F 08/15/17 08:09 Pulse 59 L 08/15/17 09:34 Resp 19 08/15/17 08:09 BP 124/58 L 08/15/17 09:34 Pulse Ox 98 08/15/17 08:09 - Labs Result Diagrams: 08/15/17 06:00 08/15/17 06:00 Labs: Laboratory Results - last 24 hr 08/14/17 08/15/17 08/15/17 21:24 06:00 06:00 WBC 6.3 D RBC 4.16 Hgb 11.7 L Hct 34.1 L MCV 82.0 MCH 28.1 MCHC 34.3 RDW 20.8 H Plt Count 75 L Gran % 60.2 Lymph % (Auto) 17.2 L Elliott % (Auto) 15.9 H Eos % (Auto) 6.1 H Baso % (Auto) 0.6 Gran # 3.78 Lymph # (Auto) 1.1 L Elliott # (Auto) 1.0 H Eos # (Auto) 0.4 Baso # (Auto) 0.04 Sodium 135 Potassium 3.5 L Chloride 99 Carbon Dioxide 29 Anion Gap 10 BUN 49 H Creatinine 2.2 H Est GFR ( Amer) 35 Est GFR (Non-Af Amer) 29 POC Glucose (mg/dL) 66 Random Glucose 103 Calcium 7.6 L Total Bilirubin 0.6 AST 122 H D ALT 89 H Alkaline Phosphatase 238 H Total Protein 7.6 Albumin 2.6 L Globulin 5.0 Albumin/Globulin Ratio 0.5 L 08/15/17 08/15/17 07:20 11:21 WBC RBC Hgb Hct MCV MCH MCHC RDW Plt Count Gran % Lymph % (Auto) Elliott % (Auto) Eos % (Auto) Baso % (Auto) Gran # Lymph # (Auto) Elliott # (Auto) Eos # (Auto) Baso # (Auto) Sodium Potassium Chloride Carbon Dioxide Anion Gap BUN Creatinine Est GFR ( Amer) Est GFR (Non-Af Amer) POC Glucose (mg/dL) 95 102 Random Glucose Calcium Total Bilirubin AST ALT Alkaline Phosphatase Total Protein Albumin Globulin Albumin/Globulin Ratio Assessment & Plan - Assessment and Plan (Free Text) Assessment: 76 year old male with PMH of HTN, DM, dyslipidemia, ESRD on HD, renal cancer S/ P partial nephrectomy, history of bilateral gangrenous heel ulcers S/P amputation AKA was brought in to [facility] from the senior care because of cough, shortness of breath and fever, heme/onc consulted for leukopenia. leukopenia- resolved sespsi secondary to e. coli bacteremia sacral ulcer transaminitis ESRD on HD, T,T,S Plan: Patient WBC count increased for 1.7 to 6.3 this morning, possibel of lab error, or likely multifactorial with sepsis and multiple comorbidities c. diff is a possibility for rise in WBC count, however there is no report of diarrhea will continue to monitor WBC count continue antibiotics per ID nephrology consulted for ESRD and dialysis case reviewed and discussed with Dr. Jackson
[2017-08-15] MEDS ORDERED: Vancomycin 1gm in NS 250ml 1 GM/250 ML BAG IVPB ONE (14:07)
[2017-08-15] MEDS ORDERED: Lidocaine 2% Inj (20ml) ONE (14:47)
[2017-08-15] MEDS ORDERED: Meropenem IV 1 gm in NS 50 ML IVPB SCH (16:35)
[2017-08-15 17:32] VITALS: BP 134/60
--- NOTE | 2017-08-15 17:47 | PN ---
DATE: 08/15/2017 PULMONARY PROGRESS NOTE REFERRING PHYSICIAN: Dr. Aguirre. SUBJECTIVE: He is lying in the bed, head at 45 degrees. Sleepy, arousable. Night was unremarkable. Tolerated BiPAP well. No headache. No rhinitis. No nausea. No vomiting. No diarrhea. OBJECTIVE: GENERAL: In no acute distress. VITAL SIGNS: Temperature is 98, heart rate 59, respiratory rate 18, blood pressure 124/58, pulse ox 98% on nasal cannula. HEENT: Moist mucous membranes. Crowded airway. NECK: Supple. No JVD. LUNGS: Fair airflow with rhonchi. HEART: S1 and S2. ABDOMEN: Soft, nontender. No organomegaly. G-tube area looks okay. EXTREMITIES: Bilateral AKA. NEUROLOGIC: Sleepy, arousable, follows simple commands. MEDICATIONS: He is on Mucomyst 20% inhaled every 12 hours, Aricept 10 mg G-tube at bedtime, Bactroban ointment to affected area, Brovana inhaled twice a day, Coreg 6.25 mg twice a day, Diovan 320 mg daily, heparin 5000 units subcu every 12 hours, Lyrica 75 mg G-tube daily, Merrem 1 g every 12 hours, Norvasc 5 mg G-tube daily, Os-Gideon 500 mg G-tube daily, oxycodone immediate release 5 mg twice a day p.r.n., Pepcid 40 mg daily, Pulmicort inhaled twice a day,Sensipar 30 mg daily, multivitamins daily. LABORATORY DATA: Shows hemoglobin 11.7, hematocrit 34.1, WBC 6.3, platelets 75. Sodium 135, potassium 3.5, chloride 99, bicarbonate 29. BUN 49, creatinine 2.2. Glucose 102. Calcium is 7.6. AST 122, ALT 89, alkaline phosphatase is 238, albumin is 2.6. Microbiology: E. coli in the blood and urine, sacral area has a gram-positive cocci. Also has a bone scan done, which shows no significant evidence of acute osteomyelitis, particularly attention directed to the sacral area. IMPRESSION AND PLAN: Sepsis and Escherichia coli bacteremia, origin is urine. Small effusion, renal failure, dialysis dependent, peripheral vascular disease, history of bilateral above-knee amputation, hypertension, oropharyngeal dysphagia, has a gastrostomy tube, may have sleep apnea syndrome. Pulmonary point of view, he is doing okay. Continue antibiotics as per Infectious Disease. He may use BiPAP while sleeping, bronchodilator, aspiration precaution. May try to cut down some of the sedatives. Thank you and we will follow with you. Ulysses Garza MD
[2017-08-15 18:56] VITALS: PULSE 62; RESP 20; TEMP 98.4
--- NOTE | 2017-08-15 22:25 | CP.PCM.PN ---
Objective - Vital Signs/Intake and Output Vital Signs (last 24 hours): Temp Pulse Resp BP Pulse Ox 98.4 F 64 20 134/60 98 08/15/17 16:00 08/15/17 17:30 08/15/17 16:00 08/15/17 17:30 08/15/17 16:00 - Labs Labs: 08/15/17 06:00 08/15/17 06:00 PT 18.3 SECONDS (9.4-12.5) H 08/10/17 01:03 INR 1.59 (0.93-1.08) H 08/10/17 01:03 APTT 35.1 Seconds (25.1-36.5) 08/10/17 01:03 Assessment and Plan (1) ESRD (end stage renal disease) on dialysis Status: Chronic (2) Anemia in ESRD (end-stage renal disease) Status: Chronic (3) Chronic kidney disease-mineral and bone disorder Status: Chronic (4) Hypertensive CKD, ESRD on dialysis Status: Chronic (5) Sepsis Status: Acute
--- NOTE | 2017-08-16 03:51 | PN ---
DATE: 08/15/2017 SUBJECTIVE: The patient is seen earlier this morning, in room 364, bed 1. Overall in poor condition. Mental status is same. PHYSICAL EXAMINATION: VITAL SIGNS: Temperature is 98, blood pressure is 130/60, respiratory rate of 18. HEENT: Unremarkable. NECK: Supple. LUNGS: Have decreased breath sounds. HEART: Normal S1, S2. ABDOMEN: Soft, nontender. LABORATORY DATA: Reveals a white count of 6.3, hemoglobin of 11, BUN of 49, creatinine of 2.2. ASSESSMENT AND PLAN: This is a 76-year-old male who was seen earlier this morning in room 364, bed 1 with sepsis with Escherichia coli bacteremia, most likely urine as a source sacral decubitus and patient with osteomyelitis, status post [id number] amputation, diabetic, hypertension and end-stage renal disease, on meropenem, day #6, will complete in 10 to 14 days. Ibrahima Lara MD
== END 2017-08-15 19:46 | DRG 871 ==
LOC: ED 00:21 → ERH 02:24 → 3RNO 04:00
PROVIDERS: ADMIT Internal Medicine; ATTEND Internal Medicine
PROC: 5A09357 Assistance with Respiratory Ventilation, Less than 24 Consecutive Hours, Continuous Positive Airway Pressure (ICD-10-PCS; 2017-08-10)
PROC: 3E0F7GC Introduction of Other Therapeutic Substance into Respiratory Tract, Via Natural or Artificial Opening (ICD-10-PCS; 2017-08-10)
PROC: 5A1D70Z Performance of Urinary Filtration, Intermittent, Less than 6 Hours Per Day (ICD-10-PCS; 2017-08-11)
PROC: 5A1D70Z Performance of Urinary Filtration, Intermittent, Less than 6 Hours Per Day (ICD-10-PCS; 2017-08-14)
PROC: 02HV33Z Insertion of Infusion Device into Superior Vena Cava, Percutaneous Approach (ICD-10-PCS; principal; 2017-08-15)
DX: A41.51 Sepsis due to Escherichia coli [E. coli] (principal); L89.154 Pressure ulcer of sacral region, stage 4; N18.6 End stage renal disease; J18.9 Pneumonia, unspecified organism; I12.0 Hypertensive chronic kidney disease with stage 5 chronic kidney disease or end stage renal disease; B18.1 Chronic viral hepatitis B without delta-agent; N25.81 Secondary hyperparathyroidism of renal origin; L12.0 Bullous pemphigoid; J90 Pleural effusion, not elsewhere classified; N39.0 Urinary tract infection, site not specified; F03.90 Unspecified dementia, unspecified severity, without behavioral disturbance, psychotic disturbance, mood disturbance, and anxiety; E11.22 Type 2 diabetes mellitus with diabetic chronic kidney disease; Z99.2 Dependence on renal dialysis; B19.20 Unspecified viral hepatitis C without hepatic coma; I25.10 Atherosclerotic heart disease of native coronary artery without angina pectoris; R13.12 Dysphagia, oropharyngeal phase; D63.1 Anemia in chronic kidney disease; E78.5 Hyperlipidemia, unspecified; J44.9 Chronic obstructive pulmonary disease, unspecified; G47.30 Sleep apnea, unspecified; M89.9 Disorder of bone, unspecified; Z93.1 Gastrostomy status; Z74.01 Bed confinement status; Z85.528 Personal history of other malignant neoplasm of kidney; Z90.5 Acquired absence of kidney; Z89.611 Acquired absence of right leg above knee; Z89.612 Acquired absence of left leg above knee; Z86.73 Personal history of transient ischemic attack (TIA), and cerebral infarction without residual deficits; Z87.891 Personal history of nicotine dependence